=== PATIENT | female | born 1975 | race Caucasian/White ===

== ENCOUNTER 2017-02-17 21:48 | Emergency (ER) | payer SELFPAY ==
--- NOTE | 2017-02-17 22:50 | RADIOLOGY REPORT (SQ) ---
EXAM DESCRIPTION: CHEST SINGLE VIEW COMPLETED DATE/TIME: 02/17/2017 10:39 pm REASON FOR STUDY: cp COMPARISON: February 2015 EXAM PARAMETERS: NUMBER OF VIEWS: One view. TECHNIQUE: Single frontal radiographic view of the chest acquired. RADIATION DOSE: NA LIMITATIONS: None. FINDINGS: LUNGS AND PLEURA: No opacities, masses or pneumothorax. No pleural effusion. MEDIASTINUM AND HILAR STRUCTURES: No masses. Contour normal. HEART AND VASCULAR STRUCTURES: Heart normal in size. Normal vasculature. BONES: No acute findings. HARDWARE: None in the chest. OTHER: No other significant finding. IMPRESSION: NO ACUTE RADIOGRAPHIC FINDING IN THE CHEST. TECHNICAL DOCUMENTATION: JOB ID: [id number]
[2017-02-17 22:52] LABS: ABSOLUTE EOSINOPHILS # (AUTO) 0.1 10^3/uL (0.0-0.6); ABSOLUTE LYMPHOCYTES (AUTO) 2.8 10^3/uL (0.5-4.7); ABSOLUTE MONOCYTES (AUTO) 0.7 10^3/uL (0.1-1.4); ABSOLUTE NEUT (AUTO) 7.9 10^3/uL (1.7-8.2); BASOPHILS % (AUTO) 0.3 % (0-2); EOSINOPHILS % (AUTO) 0.6 % (0-6); HEMATOCRIT 46.6 % (36.0-47.0); HEMOGLOBIN 15.3 g/dL (12.0-15.5); HGB HCT DIFFERENCE -0.7; LYMPHOCYTES % (AUTO) 24.5 % (13-45); MEAN CORPUSCULAR HEMOGLOBIN 27.9 pg (27.0-33.4); MEAN CORPUSCULAR HGB CONC 32.9 g/dL (32.0-36.0); MEAN CORPUSCULAR VOLUME 85 fl (80-97); MONOCYTES % (AUTO) 5.8 % (3-13); RED CELL DISTRIBUTION WIDTH 14.2 % (11.5-14.0); SEGMENTED NEUTROPHILS % (AUTO) 68.8 % (42-78); WHITE BLOOD COUNT 11.4 10^3/uL (4.0-10.5)
[2017-02-17 23:04] LABS: ALANINE AMINOTRANSFERASE 84 U/L (9-52); ALBUMIN 4.2 g/dL (3.5-5.0); ALKALINE PHOSPHATASE 82 U/L (38-126); ANION GAP 12 (5-19); ASPARTATE AMINO TRANSFERASE 40 U/L (14-36); BILIRUBIN,DIRECT 0.2 mg/dL (0.0-0.4); BILIRUBIN,TOTAL 0.5 mg/dL (0.2-1.3); BLOOD UREA NITROGEN 18 mg/dL (7-20); CALCIUM 9.7 mg/dL (8.4-10.2); CARBON DIOXIDE 24 mmol/L (22-30); CHLORIDE 106 mmol/L (98-107); CREATININE RESULT 0.78 mg/dL (0.52-1.25); GLUCOSE 92 mg/dL (75-110); POTASSIUM 4.8 mmol/L (3.6-5.0); TOTAL PROTEIN 7.6 g/dL (6.3-8.2)
[2017-02-17 23:10] LABS: CREATINE KINASE < 20 U/L (30-135)
[2017-02-17 23:20] LABS: CREATINE KINASE MB < 0.22 ng/mL (<4.55); TROPONIN I < 0.012 ng/mL
--- NOTE | 2017-02-17 23:22 | ER Document Report ---
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 States that she did land directly on her back and denies any head or neck trauma. States that she has had some intermittent diffuse chest wall pain described as mild, cramping, much worse after the fall. Denies anything seems to improve or worsen her pain. Does have a history of a lumbar spinal fusion in the remote past. She has been able to ambulate since the fall. Denies any bowel or bladder incontinence. No urinary retention. She denies any associated shortness of breath, nausea, vomiting, pleuritic pain, or hemoptysis. TRAVEL OUTSIDE OF THE [place] IN LAST 30 DAYS: No - Related Data Allergies/Adverse Reactions: No Known Allergies Allergy (Verified 04/30/15 20:04) Past Medical History - General Information source: Patient - Social History Smoking Status: Former Smoker Frequency of alcohol use: None Drug Abuse: None Lives with: Other - Care Home Family History: Reviewed & Not Pertinent - Past Medical History Cardiac Medical History: Reports: Hx Hypertension Neurological Medical History: Reports: Hx Migraine GI Medical History: Reports: Hx Gastroesophageal Reflux Disease Musculoskeltal Medical History: Reports Hx Musculoskeletal Deformity, Reports Hx Musculoskeletal Trauma Past Surgical History: Reports: Hx Section - Immunizations Immunizations up to date: Yes Hx Diphtheria, Pertussis, Tetanus Vaccination: Yes Review of Systems - Review of Systems Notes: Constitutional: Negative for fever. HENT: Negative for sore throat. Eyes: Negative for visual changes. Cardiovascular: Positive for chest pain. Respiratory: Negative for shortness of breath. Gastrointestinal: Negative for abdominal pain, vomiting or diarrhea. Genitourinary: Negative for dysuria. Musculoskeletal: Positive for back pain. Skin: Negative for rash. Neurological: Negative for headaches, weakness or numbness. 10 point ROS negative except as marked above and in HPI. Physical Exam - Vital signs Vitals: Resp BP Pulse Ox 15 118/102 H 100 02/17/17 21:59 02/17/17 21:59 02/17/17 21:59 Interpretation: Normal Notes: PHYSICAL EXAMINATION: GENERAL: Well-appearing, well-nourished and in no acute distress. HEAD: Atraumatic, normocephalic. EYES: Pupils equal round and reactive to light, extraocular movements intact, sclera anicteric, conjunctiva are normal. ENT: nares patent, oropharynx clear without exudates. Moist mucous membranes. NECK: Normal range of motion, supple without lymphadenopathy LUNGS: Breath sounds clear to auscultation bilaterally and equal. No wheezes rales or rhonchi. HEART: Regular rate and rhythm without murmurs ABDOMEN: Soft, nontender, normoactive bowel sounds. No guarding, no rebound. No masses appreciated. EXTREMITIES: Normal range of motion, no pitting or edema. No cyanosis. Back: Diffuse L-spine midline tenderness without step-offs or deformities. NEUROLOGICAL: 5 out of 5 strength both distally and proximally bilateral lower extremities. 2+ patellar reflexes bilaterally. No clonus. Sensation grossly intact in the bilateral lower extremities. Patient is able to ambulate without difficulty. PSYCH: Normal mood, normal affect. SKIN: Warm, Dry, normal turgor, no rashes or lesions noted. Course - Re-evaluation Re-evalutation: 02/17/17 23:19 Patient presents with concern of diffuse low back pain after falling off of her bunk in [facility]. She states that after she fell and shot pain upper back and into her diffuse chest. Patient does note that she has had intermittent diffuse chest wall "cramping" for the past 3 days. At time of my assessment patient is overall well in appearance, no acute distress, vitals within normal limits. Low clinical suspicion for ACS given clinical history, exam, EKG without ST elevations or depressions, and negative initial troponin. HEART score less than or equal to 3. PE also seems unlikely given clinical history, absence of tachycardia or dyspnea. Patient does have a history of pulmonary embolism but again given her absence of tachycardia, dyspnea or complaints of pleuritic pain or shortness of breath I do not believe pursuing this diagnosis at this time is indicated. CXR without evidence of pneumothorax or pneumonia. No widened mediastinum. Aortic dissection also seems unlikely given history, symmetric pulses, CXR, and vitals. Back examination does show a midline lumbar scar and midline spinal tenderness but no step-offs or deformities. No neurologic deficit, 2+ patellar and ankle reflexes bilaterally. Able to ambulate. I do not suspect an acute cord injury. Will obtain a lumbar spine x-ray to ensure no displacement of existing hardware. A single troponin will be obtained likewise to exclude any cardiac etiology of patient's chest pain although again this seems unlikely given clinical history. Chest x-ray has been obtained likewise did not demonstrate any acute findings. If all labs and x-rays are within normal limits and patient continues to do well in appearance and in no distress, will plan for discharge home. HEART Score: History:0 EC Age:0 Risk Factors:1 Troponin:0 Total: 1 02/18/17 00:34 Patient has remained pain-free at this time. L-spine x-ray is normal without evidence of hardware displacement. At this time will discharge with return precautions and follow-up recommendations. Verbal discharge instructions given a the bedside and opportunity for questions given. Medication warnings reviewed. Patient is in agreement with this plan and has verbalized understanding of return precautions and the need for primary care follow-up in the next 24-72 hours. - Vital Signs Vital signs: Temp Pulse Resp BP Pulse Ox 98.1 F 20 111/94 H 98 02/17/17 22:00 02/17/17 22:01 02/17/17 22:01 02/17/17 22:01 - Laboratory Result Diagrams: 02/17/17 22:44 02/17/17 22:44 Laboratory results interpreted by me: 02/17/17 02/17/17 22:44 22:44 WBC 11.4 H RBC 5.50 H RDW 14.2 H AST 40 H ALT 84 H Creatine Kinase < 20 L - Diagnostic Test Radiology reviewed: Image reviewed, Reports reviewed Radiology results interpreted by me: 02/17/17 23:22 Chest x-ray: No acute infiltrate - EKG Interpretation by Me Additional EKG results interpreted by me: 02/17/17 23:24 Normal sinus rhythm. Rate 74. No ST elevations or depressions. QTC 395. Discharge - Discharge Clinical Impression: Low back pain Qualifiers: Chronicity: acute Back pain laterality: midline Sciatica presence: without sciatica Qualified Code(s): M54.5 - Low back pain Fall Qualifiers: Encounter type: initial encounter Qualified Code(s): W19.XXXA - Unspecified fall, initial encounter Chest pain Qualifiers: Chest pain type: unspecified Qualified Code(s): R07.9 - Chest pain, unspecified Additional Instructions: You were seen today for chest pain. The exact cause of your pain is unclear. However, based on your cardiac enzyme testing, chest x-ray, and EKG it does not appear that it is from an immediately life-threatening cause at this time. Although your testing here is normal is critical that you follow-up with your primary care physician for continued evaluation of this chest pain. Please return to emergency department immediately if you have worsening of your chest pain, shortness of breath, vomiting, become unable to exert yourself due to pain or difficulty breathing, you pass out, or have any pain that radiates into your arms, jaw, or back. Please also return if you have any additional symptoms that are concerning to you. You have been seen in the Emergency Department (ED) today for back pain. Your workup and exam have not shown any acute abnormalities and you are likely suffering from muscle strain or possible problems with your discs, but there is no treatment that will fix your symptoms at this time. You can use ibuprofen 600mg every 6 hours as needed. You should also purchase a local lidocaine cream such as "aspercreme with lidocaine" and use per bottle instructions to the affected area. Apply heat to the area as often as you are able. Continue to keep active and avoid prolonged periods of bed rest. Please follow up with your doctor as soon as possible regarding today's ED visit and your back pain. Return to the ED for worsening back pain, fever, weakness or numbness of either leg, or if you develop either (1) an inability to urinate or have bowel movements, or (2) loss of your ability to control your bathroom functions (if you start having "accidents"), or if you develop other new symptoms that concern you.concern you.
--- NOTE | 2017-02-17 23:29 | EKG REPORT ---
SEVERITY:- NORMAL ECG - SINUS RHYTHM : Confirmed by: Tyler Delacruz MD 17-Feb-2017 23:29:01
[2017-02-18] MEDS ORDERED: KETOROLAC TROMETHAMINE INJ/PF 30 MG/1 ML SDV IV ONE (00:10)
[2017-02-18] MEDS ORDERED: LIDOCAINE 5% (700 MG) TRANSDERMAL ADH..PATCH TP ONE (00:33)
--- NOTE | 2017-02-18 00:33 | RADIOLOGY REPORT (SQ) ---
EXAM DESCRIPTION: L SPINE WHOLE COMPLETED DATE/TIME: 02/18/2017 12:21 am REASON FOR STUDY: fall, eval hardware damage COMPARISON: 03/01/2016 NUMBER OF VIEWS: Five views including obliques. TECHNIQUE: AP, lateral, oblique, and sacral radiographic images acquired of the lumbar spine. LIMITATIONS: None. FINDINGS: MINERALIZATION: Normal. SEGMENTATION: Normal. No transitional anatomy. ALIGNMENT: Normal. VERTEBRAE: Maintained height. No fracture or worrisome bone lesion. DISCS: Preserved height. No significant osteophytes or end plate irregularity. POSTERIOR ELEMENTS: Pedicles and facets are intact. No pars defect or posterior arch defects. HARDWARE: Paraspinous pati and intrapedicular screw fusion is again seen at the lumbosacral junction. There is no evidence of hardware fracture, perihardware lucency or migration. PARASPINAL SOFT TISSUES: Normal. PELVIS: Intact as visualized. No fractures or worrisome bone lesions. SI joints intact. OTHER: Surgical clips localized to the right upper quadrant. IMPRESSION: Status post L5-S1 fusion without evidence of hardware complication. No acute findings. TECHNICAL DOCUMENTATION: JOB ID: [id number] [employer]- All Rights Reserved
[2017-02-18 00:45] VITALS: BP 153/92
== END 2017-02-18 00:55 | disposition home or self-care (01) ==
LOC: ER 21:48
DX: R07.9 Chest pain, unspecified (principal); M54.5 Low back pain; W06.XXXA Fall from bed, initial encounter; Y92.149 Unspecified place in prison as the place of occurrence of the external cause; I10 Essential (primary) hypertension; K21.9 Gastro-esophageal reflux disease without esophagitis; Z98.1 Arthrodesis status
CPT/HCPCS: 93005; 99284; 36415; 82553; 82550; 85025; 80053; 84484; 71010; 72110; 93010; J1885

== ENCOUNTER 2019-03-27 15:21 | Emergency (ER) | payer SELFPAY ==
[2019-03-27] MEDS ORDERED: NORMAL SALINE 1000 ML 1,000 ML IV ONE (15:58)
--- NOTE | 2019-03-27 16:01 | ER Document Report ---
ED Medical Screen (RME) - General Chief Complaint: Feet Swelling Stated Complaint: FEET SWELLING,SHORT OF BREATH Time Seen by Provider: 03/27/19 15:49 Mode of Arrival: Wheelchair Information source: Patient Notes: 43-year-old female presents to ED for chest pain, shortness of breath, pedal edema, and nausea and vomiting.. She states he had a aortic valve replacement in September. Has been vomiting in the emergency room. Her pulse is 132. She states she just used heroin about an hour ago. She states she used a normal amount. She states she also used it a couple weeks ago. Patient is alert and oriented respirations regular and unlabored she is chilling and states she is feeling very cold. Pulse is 132 blood pressure is 101/58 with a temperature of 100 even. I have greeted and performed a rapid initial assessment of this patient. A comprehensive ED assessment and evaluation of the patient, analysis of test results and completion of medical decision making process will be conducted by an additional ED providers. Dictation of this chart was performed using voice recognition software; therefore, there may be some unintended grammatical errors. TRAVEL OUTSIDE OF THE [place] IN LAST 30 DAYS: No - Related Data Allergies/Adverse Reactions: No Known Allergies Allergy (Verified 03/27/19 15:22) Past Medical History - Past Medical History Cardiac Medical History: Reports: Hx Hypertension Neurological Medical History: Reports: Hx Migraine GI Medical History: Reports: Hx Gastroesophageal Reflux Disease Musculoskeltal Medical History: Reports Hx Musculoskeletal Deformity, Reports Hx Musculoskeletal Trauma Past Surgical History: Reports: Hx Section, Hx Orthopedic Surgery - L1- S5 fusion - Immunizations Immunizations up to date: Yes Hx Diphtheria, Pertussis, Tetanus Vaccination: Yes Physical Exam - Vital signs Vitals: Temp Pulse Resp BP Pulse Ox 99.8 F 132 H 18 101/58 L 99 03/27/19 15:42 03/27/19 15:42 03/27/19 15:42 03/27/19 15:42 03/27/19 15:42 Course - Vital Signs Vital signs: Temp Pulse Resp BP Pulse Ox 99.8 F 132 H 18 101/58 L 99 03/27/19 15:42 03/27/19 15:42 03/27/19 15:42 03/27/19 15:42 03/27/19 15:42
--- NOTE | 2019-03-27 16:12 | RADIOLOGY REPORT (SQ) ---
EXAM DESCRIPTION: CHEST 2 VIEWS COMPLETED DATE/TIME: 03/27/2019 4:04 pm REASON FOR STUDY: chest pain, swelling in feet COMPARISON: 03/15/2015 EXAM PARAMETERS: NUMBER OF VIEWS: two views TECHNIQUE: Digital Frontal and Lateral radiographic views of the chest acquired. RADIATION DOSE: NA LIMITATIONS: none FINDINGS: LUNGS AND PLEURA: No opacities, masses or pneumothorax. No pleural effusion. MEDIASTINUM AND HILAR STRUCTURES: No masses or contour abnormalities. HEART AND VASCULAR STRUCTURES: Heart normal size. No evidence for failure. BONES: No acute findings. HARDWARE: Sternotomy wires. OTHER: No other significant finding. IMPRESSION: NO ACUTE RADIOGRAPHIC FINDING IN THE CHEST. TECHNICAL DOCUMENTATION: JOB ID: [id number] [employer]- All Rights Reserved Reading location - IP/workstation name: [email or web address]
--- NOTE | 2019-03-27 16:37 | ER Document Report ---
ED General - General Chief Complaint: Feet Swelling Stated Complaint: FEET SWELLING,SHORT OF BREATH Time Seen by Provider: 03/27/19 15:49 Mode of Arrival: Wheelchair Notes: 43-year-old female. 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 Coming in complaining of severe shortness of breath, tachycardia and fever. Currently with a fever of 102. States that she has had a large amount of swelling to her legs as well. States that she did well for about 3 months after her surgery but has relapsed over the last 4 months. TRAVEL OUTSIDE OF THE [place] IN LAST 30 DAYS: No - HPI Onset/Duration: Gradual, Constant, Worse Severity: Severe Pain Level: 3 - Related Data Allergies/Adverse Reactions: No Known Allergies Allergy (Verified 03/27/19 15:22) Past Medical History - General Information source: Patient - Social History Smoking Status: Current Every Day Smoker Cigarette use (# per day): Yes Frequency of alcohol use: Social Drug Abuse: Heroin Lives with: Family Family History: Reviewed & Not Pertinent Patient has suicidal ideation: No Patient has homicidal ideation: No - Past Medical History Cardiac Medical History: Reports: Hx Hypertension Neurological Medical History: Reports: Hx Migraine Renal/ Medical History: Denies: Hx Peritoneal Dialysis GI Medical History: Reports: Hx Gastroesophageal Reflux Disease Musculoskeletal Medical History: Reports Hx Musculoskeletal Deformity, Reports Hx Musculoskeletal Trauma Past Surgical History: Reports: Hx Section, Hx Orthopedic Surgery - L1- S5 fusion - Immunizations Immunizations up to date: Yes Hx Diphtheria, Pertussis, Tetanus Vaccination: Yes Review of Systems - Review of Systems Notes: Constitutional: denies: Chills, Diaphoresis, +Fever, +Malaise, +Weakness EENT: denies: Eye discharge, Blurred vision, Tearing, Double vision, Nose congestion, Nose discharge, Throat swelling, Mouth pain Cardiovascular: She is complaining of chest pain, palpitations, difficulty with breathing and peripheral edema. Respiratory: denies: Cough, Hurts to breathe, Wheezing, +Shortness of breath Gastrointestinal: denies: Abdominal pain, Diarrhea, Nausea, Vomiting, Black stools, bright red blood in stool Genitourinary: denies: Burning, Dysuria, Discharge, Frequency, Flank pain, Hematuria Musculoskeletal: denies: Joint pain, Joint swelling, Muscle pain, Muscle stiffness, back pain, +edema Hematologic/Lymphatic: denies: Anemia, Easy bleeding, Easy bruising, Blood clots Neurological/Psychological: denies: Confusion, Dementia, Depression, Loss of consciousness Skin: No lesions, no masses, no skin breakdown, no abscesses Physical Exam - Vital signs Vitals: Temp Pulse Resp BP Pulse Ox 99.8 F 132 H 18 101/58 L 99 03/27/19 15:42 03/27/19 15:42 03/27/19 15:42 03/27/19 15:42 03/27/19 15:42 Interpretation: Hypotensive, Tachycardic, Febrile - General General appearance: Appears well, Alert - HEENT Head: Normocephalic, Atraumatic Eyes: Normal Pupils: PERRL - Respiratory Respiratory status: No respiratory distress Chest status: Nontender Breath sounds: Normal Chest palpation: Normal - Cardiovascular Rhythm: Tachycardia Heart sounds: Normal auscultation Murmur: Yes - 5 out of 6 blowing systolic murmur. - Abdominal Inspection: Normal Distension: No distension Bowel sounds: Normal Tenderness: Nontender Organomegaly: No organomegaly - Back Back: Normal, Nontender - Extremities General upper extremity: Normal inspection, Nontender, Normal color, Normal ROM, Normal temperature General lower extremity: Normal inspection, Nontender, Edema - Trace bilateral lower extremity edema., Normal color, Normal ROM, Normal temperature, Normal weight bearing. No: Kady's sign - Neurological Neuro grossly intact: Yes Cognition: Normal Orientation: AAOx4 Rogerio Coma Scale Eye Opening: Spontaneous Rogerio Coma Scale Verbal: Oriented [place] Coma Scale Motor: Obeys Commands [place] Coma Scale Total: 15 Speech: Normal Motor strength normal: LUE, RUE, LLE, RLE Sensory: Normal - Psychological Associated symptoms: Normal affect, Normal mood - Skin Skin Temperature: Warm Skin Moisture: Dry Skin Color: Normal Course - Re-evaluation Re-evalutation: 03/27/19 18:39 This is an ill-appearing 43-year-old female. Loud systolic murmur. Recent open heart surgery with valve repair for endocarditis. Patient does admit that she has been using heroin again and injecting. Has a history of hepatitis. More than likely patient is septic and has endocarditis again. We have no cardiothoracic surgery here. More likely patient will benefit from transfer i mmediately. Will attempt to contact hospitalist and student records specialist/cardiothoracic surgeon at [facility] where patient was recently hospitalized to see if they will accept her as a transfer. 03/27/19 19:14 Laboratory 03/27/19 03/27/19 03/27/19 16:19 16:19 16:19 WBC 3.7 L RBC 5.11 Hgb 12.9 Hct 39.3 MCV 77 L MCH 25.3 L MCHC 32.8 RDW 17.0 H Plt Count 311 Total Counted 100 Seg Neutrophils % Not Reportable Seg Neuts % (Manual) 72 Band Neutrophils % 7 H Lymphocytes % Not Reportable Lymphocytes % (Manual) 18 Monocytes % Not Reportable Monocytes % (Manual) 1 L Eosinophils % Not Reportable Eosinophils % (Manual) 0 Basophils % Not Reportable Basophils % (Manual) 0 Metamyelocytes % 2 H Absolute Neutrophils Not Reportable Abs Neuts (Manual) 3.0 Absolute Lymphocytes Not Reportable Abs Lymphs (Manual) 0.7 Absolute Monocytes Not Reportable Abs Monocytes (Manual) 0.0 L Absolute Eosinophils Not Reportable Absolute Eos (Manual) 0.0 Absolute Basophils Not Reportable Abs Basophils (Manual) 0.0 Platelet Comment ADEQUATE Polychromasia SLIGHT Hypochromasia SLIGHT Poikilocytosis SLIGHT Anisocytosis 1+ Ovalocytes 1+ Sodium Cancelled Potassium Cancelled Chloride Cancelled Carbon Dioxide Cancelled Anion Gap Cancelled BUN Cancelled Creatinine Cancelled Est GFR ( Amer) Cancelled Est GFR (Non-Af Amer) Cancelled Glucose Cancelled Lactic Acid Cancelled Calcium Cancelled Total Bilirubin Cancelled Direct Bilirubin Cancelled Neonat Total Bilirubin Cancelled Neonat Direct Bilirubin Cancelled Neonat Indirect Bili Cancelled AST Cancelled ALT Cancelled Alkaline Phosphatase Cancelled Creatine Kinase Cancelled CK-MB (CK-2) Troponin I NT-Pro-B Natriuret Pep Total Protein Cancelled Albumin Cancelled Serum HCG, Qual 03/27/19 03/27/19 03/27/19 16:19 16:19 16:19 WBC RBC Hgb Hct MCV MCH MCHC RDW Plt Count Total Counted Seg Neutrophils % Seg Neuts % (Manual) Band Neutrophils % Lymphocytes % Lymphocytes % (Manual) Monocytes % Monocytes % (Manual) Eosinophils % Eosinophils % (Manual) Basophils % Basophils % (Manual) Metamyelocytes % Absolute Neutrophils Abs Neuts (Manual) Absolute Lymphocytes Abs Lymphs (Manual) Absolute Monocytes Abs Monocytes (Manual) Absolute Eosinophils Absolute Eos (Manual) Absolute Basophils Abs Basophils (Manual) Platelet Comment Polychromasia Hypochromasia Poikilocytosis Anisocytosis Ovalocytes Sodium Potassium Chloride Carbon Dioxide Anion Gap BUN Creatinine Est GFR ( Amer) Est GFR (Non-Af Amer) Glucose Lactic Acid Calcium Total Bilirubin Direct Bilirubin Neonat Total Bilirubin Neonat Direct Bilirubin Neonat Indirect Bili AST ALT Alkaline Phosphatase Creatine Kinase CK-MB (CK-2) Cancelled Troponin I Cancelled NT-Pro-B Natriuret Pep Cancelled Total Protein Albumin Serum HCG, Qual Cancelled 03/27/19 03/27/19 03/27/19 18:02 18:02 18:02 WBC RBC Hgb Hct MCV MCH MCHC RDW Plt Count Total Counted Seg Neutrophils % Seg Neuts % (Manual) Band Neutrophils % Lymphocytes % Lymphocytes % (Manual) Monocytes % Monocytes % (Manual) Eosinophils % Eosinophils % (Manual) Basophils % Basophils % (Manual) Metamyelocytes % Absolute Neutrophils Abs Neuts (Manual) Absolute Lymphocytes Abs Lymphs (Manual) Absolute Monocytes Abs Monocytes (Manual) Absolute Eosinophils Absolute Eos (Manual) Absolute Basophils Abs Basophils (Manual) Platelet Comment Polychromasia Hypochromasia Poikilocytosis Anisocytosis Ovalocytes Sodium 132.6 L Potassium 3.6 Chloride 105 Carbon Dioxide 17 L Anion Gap 11 BUN 11 Creatinine 1.00 Est GFR ( Amer) > 60 Est GFR (Non-Af Amer) > 60 Glucose 112 H Lactic Acid Calcium 8.3 L Total Bilirubin 1.4 H Direct Bilirubin 1.2 H Neonat Total Bilirubin Not Reportable Neonat Direct Bilirubin Not Reportable Neonat Indirect Bili Not Reportable AST 90 H ALT 52 Alkaline Phosphatase 400 H Creatine Kinase 75 CK-MB (CK-2) 0.63 Troponin I 0.647 NT-Pro-B Natriuret Pep 8300 H Total Protein 5.9 L Albumin 2.6 L Serum HCG, Qual NEGATIVE 03/27/19 19:29 Patient is having issues with her blood pressure. Her troponin is elevated. Aspirin has been given. More likely patient is septic versus having decompensated heart valve from endocarditis. I have spoken with the supervisor cooler service, Dr. Hurley at [facility]. We will arrange for immediate transfer. 03/27/19 20:09 Patient is extremely sick. Likely endocarditis with sepsis. Broad-spectrum antibiotics given. Acute heart failure with BNP over 8000 and elevated troponin. I have consulted with the supervisor cooler service at [facility], Dr. Hurley excepting. Pending immediate transfer at this time. - Vital Signs Vital signs: Temp Pulse Resp BP Pulse Ox 99.8 F 132 H 18 101/58 L 99 03/27/19 15:42 03/27/19 15:42 03/27/19 15:42 03/27/19 15:42 03/27/19 15:42 - Laboratory Result Diagrams: 03/27/19 16:19 03/27/19 18:02 Laboratory results interpreted by me: 03/27/19 03/27/19 03/27/19 16:19 18:02 18:02 WBC 3.7 L MCV 77 L MCH 25.3 L RDW 17.0 H Band Neutrophils % 7 H Monocytes % (Manual) 1 L Metamyelocytes % 2 H Abs Monocytes (Manual) 0.0 L Sodium 132.6 L Carbon Dioxide 17 L Glucose 112 H Calcium 8.3 L Total Bilirubin 1.4 H Direct Bilirubin 1.2 H AST 90 H Alkaline Phosphatase 400 H NT-Pro-B Natriuret Pep 8300 H Total Protein 5.9 L Albumin 2.6 L Critical Care Note - Critical Care Note Total time excluding time spent on procedures (mins): 60 Comments: Endocarditis, sepsis, consultation with specialist, coordination of transfer of care Discharge - Discharge Clinical Impression: Sepsis Qualifiers: Sepsis type: sepsis due to unspecified organism Qualified Code(s): A41.9 - Sepsis, unspecified organism Bacterial endocarditis Qualifiers: Chronicity: unspecified Qualified Code(s): I33.0 - Acute and subacute infective endocarditis Condition: Fair Disposition: [facility]
[2019-03-27 16:51] LABS: HEMATOCRIT 39.3 % (36.0-47.0); HEMOGLOBIN 12.9 g/dL (12.0-15.5); MEAN CORPUSCULAR HEMOGLOBIN 25.3 pg (27.0-33.4); MEAN CORPUSCULAR HGB CONC 32.8 g/dL (32.0-36.0); MEAN CORPUSCULAR VOLUME 77 fl (80-97); PLATELET COUNT 311 10^3/uL (150-450); RED BLOOD COUNT 5.11 10^6/uL (3.72-5.28); WHITE BLOOD COUNT 3.7 10^3/uL (4.0-10.5)
[2019-03-27] MEDS ORDERED: VANCOMYCIN HCL INJ 1000 MG VIAL IV ONE (16:52)
[2019-03-27] MEDS ORDERED: PIPERACILLIN/TAZOBACTAM 3.375 GM VIAL IV ONE (16:52)
[2019-03-27] MEDS ORDERED: FAMOTIDINE INJ/PF 20 MG/2 ML SDV IV ONE (16:53)
[2019-03-27] MEDS ORDERED: FENTANYL CITRATE INJ/PF 100 MCG/2 ML AMPUL IV ONE (16:53)
[2019-03-27] MEDS ORDERED: KETOROLAC TROMETHAMINE INJ/PF 30 MG/1 ML SDV IV ONE (16:53)
[2019-03-27] MEDS ORDERED: ASPIRIN 325 MG TABLET PO ONE (16:53)
[2019-03-27 17:09] LABS: ABSOLUTE LYMPHOCYTES# (MANUAL) 0.7 10^3/uL (0.5-4.7); BAND NEUTROPHILS % (MANUAL) 7 % (3-5); BASOPHILS % (MANUAL) 0 % (0-2); EOSINOPHILS % (MANUAL) 0 % (0-6); LYMPHOCYTES % (MANUAL) 18 % (13-45); METAMYELOCYTES % (MANUAL) 2 % (0); MONOCYTES % (MANUAL) 1 % (3-13); PLATELET COMMENT ADEQUATE; SEGMENTED NEUTROPHILS % (MAN) 72 % (42-78); TOTAL CELLS COUNTED 100
[2019-03-27 17:11] LABS: ANISOCYTOSIS 1+; HYPOCHROMASIA SLIGHT; OVALOCYTES 1+; POIKILOCYTOSIS SLIGHT; POLYCHROMASIA SLIGHT
[2019-03-27 18:34] LABS: ALANINE AMINOTRANSFERASE 52 U/L (9-52); ALBUMIN 2.6 g/dL (3.5-5.0); ALKALINE PHOSPHATASE 400 U/L (38-126); ANION GAP 11 (5-19); ASPARTATE AMINO TRANSFERASE 90 U/L (14-36); BILIRUBIN,DIRECT 1.2 mg/dL (0.0-0.4); BILIRUBIN,TOTAL 1.4 mg/dL (0.2-1.3); BLOOD UREA NITROGEN 11 mg/dL (7-20); CALCIUM 8.3 mg/dL (8.4-10.2); CARBON DIOXIDE 17 mmol/L (22-30); CHLORIDE 105 mmol/L (98-107); CREATINE KINASE 75 U/L (30-135); GLUCOSE 112 mg/dL (75-110); POTASSIUM 3.6 mmol/L (3.6-5.0); SODIUM 132.6 mmol/L (137-145); TOTAL PROTEIN 5.9 g/dL (6.3-8.2)
[2019-03-27 18:45] LABS: CREATINE KINASE MB 0.63 ng/mL (<4.55)
[2019-03-27 18:48] LABS: TROPONIN I 0.647 ng/mL
[2019-03-27 19:48] LABS: APPEARANCE,URINE SLIGHTLY-CLOUDY; BILIRUBIN,URINE SMALL (NEGATIVE); COLOR,URINE AMBER; GLUCOSE, URINE NEGATIVE (NEGATIVE); KETONES,URINE NEGATIVE (NEGATIVE); LEUKOCYTE ESTERASE,URINE NEGATIVE (NEGATIVE); NITRITE,URINE NEGATIVE (NEGATIVE); PROTEIN,URINE 100 mg/dL (NEGATIVE); URINE SPECIFIC GRAVITY 1.017
[2019-03-27] MEDS ORDERED: DEXTROSE 5%-WATER 250 ML with NOREPINEPHRINE BITARTRATE 4 MG IV PRN ×2 (20:50)
[2019-03-27] MEDS ORDERED: NOREPINEPHRINE BITARTRATE INJ/PF 4 MG/4 ML SDV IV ONE (20:52)
[2019-03-27] MEDS ORDERED: NORMAL SALINE 1000 ML 1,000 ML IV PRN ×2 (20:56→20:57)
--- NOTE | 2019-03-27 20:58 | Operative Report ---
Nonrecallable Operative Report DATE OF SURGERY: 03/27/19 PREOPERATIVE DIAGNOSIS: sepsis POSTOPERATIVE DIAGNOSIS: sepsis OPERATION: central line placement SURGEON: JARRETT FOFANA ANESTHESIA: Local TISSUE REMOVED OR ALTERED: none COMPLICATIONS: none ESTIMATED BLOOD LOSS: 0 INTRAOPERATIVE FINDINGS: see dictation
--- NOTE | 2019-03-27 21:28 | RADIOLOGY REPORT (SQ) ---
EXAM DESCRIPTION: RadLex: XR CHEST 1 VIEW CLINICAL HISTORY: 43 years Female, Central Line placement COMPARISON: 03/15/2015 FINDINGS: Lungs are clear, with no focal infiltrate, pneumothorax, or pleural effusion. Sternal wires are noted. Left IJ line is in place, tip in the SVC. Bony structures are unremarkable. IMPRESSION: 1. Left IJ line in place. No pneumothorax.
[2019-03-27 22:49] VITALS: BP 133/86
--- NOTE | 2019-03-28 04:45 | OPERATIVE REPORT E ---
Operative Report NAME: HONEY GRESHAM : 1975 AGE: 43Y DATE OF SURGERY: 03/27/2019 ROOM: PREOPERATIVE DIAGNOSIS: 1. SEPSIS SECONDARY TO ENDOCARDITIS. 2. NEED FOR VENOUS ACCESS. SURGEON: JARRETT FOFANA M.D. PROCEDURE: The patient was seen in the Emergency Room. She was lying on the Emergency Room gurney in a Trendelenburg position. The left neck was prepped and draped in the usual sterile fashion for a central line placement. After anesthetizing the skin over the internal jugular vein with 1% lidocaine plain, the internal jugular vein was cannulated with a 16-gauge needle. A wire was then placed through the needle into the superior vena cava. The needle was removed. A dilator was then placed over the wire into the internal jugular vein, and that was removed. Over the wire then, a 16-gauge triple-lumen catheter was placed without consequence. The wire was removed. The catheter was affixed to the skin with 2-0 silk and a sterile dressing was applied. A postprocedure chest x-ray confirmed good placement, and this completed the procedure. Estimated blood loss was negligible. DICTATING PHYSICIAN: JARRETT FOFANA M.D. [id number] PHY#: [id number] ID: [id number] JOB#: [id number] ACCT: [id number] cc:JARRETT FOFANA M.D. >
--- NOTE | 2019-03-28 04:55 | OPERATIVE REPORT E ---
Operative Report NAME: HONEY GRESHAM : 1975 AGE: 43Y DATE OF SURGERY: 03/27/2019 ROOM: PREOPERATIVE DIAGNOSES: 1. SEPSIS SECONDARY TO ENDOCARDITIS. 2. NEED FOR VENOUS ACCESS. SURGEON: JARRETT FOFANA M.D. PROCEDURE: [facility] She was placed in a Trendelenburg position. The left neck was prepped and draped in usual sterile fashion. After appropriate time-out and site verification, the area over the left internal jugular vein was anesthetized with 1% lidocaine plain. The vein was then cannulated with a 16-gauge needle, and through the needle a wire was placed into the superior vena cava. The needle was removed. The tract was dilated with the dilator included in the kit. After the tract was dilated, the dilator was removed and a triple-lumen 16-[place] catheter was placed over the wire into the superior vena cava. It was fixed there with 2-0 silk, and a confirmatory chest x-ray obtained, which showed good position. A sterile dressing was applied, which completed the procedure. Estimated blood loss was negligible. DICTATING PHYSICIAN: JARRETT FOFANA M.D. [id number] PHY#: [id number] ID: [id number] JOB#: [id number] ACCT: [id number] cc:JARRETT FOFANA M.D. >
== END 2019-03-27 23:10 | disposition short-term general hospital (02) ==
LOC: ER 15:21
DX: A41.9 Sepsis, unspecified organism (principal); I33.0 Acute and subacute infective endocarditis; M79.89 Other specified soft tissue disorders; R06.02 Shortness of breath; F19.10 Other psychoactive substance abuse, uncomplicated; R50.9 Fever, unspecified; F17.210 Nicotine dependence, cigarettes, uncomplicated; I10 Essential (primary) hypertension; Z98.1 Arthrodesis status
CPT/HCPCS: 99291; 51702; 96375; 96365; 96366; 96368; 36415; 87040; 87086; 82553; 82550; 84703; 85025; 80053; 81001; 84484; 83605; 83880; 71046; 71045; 36556; C1751; C1769; J3010; J1885; J3490; J7060; J7030; J3370; S0028; J2543

== ENCOUNTER 2019-05-21 22:50 | Inpatient (IN) | payer OTHER ==
[2019-05-21] MEDS ORDERED: ACETAMINOPHEN 325 MG TABLET PO ONE (23:05)
[2019-05-21] MEDS: NORMAL SALINE 1000 ML 1,000 ML IV PRN (23:18)
[2019-05-21 23:27] LABS: INTERNATIONAL RATION (INR) 1.16; PROTHROMBIN TIME 14.9 SEC (11.4-15.4)
[2019-05-21 23:29] LABS: HEMATOCRIT 38.9 % (36.0-47.0); HEMOGLOBIN 12.9 g/dL (12.0-15.5); MEAN CORPUSCULAR HEMOGLOBIN 25.7 pg (27.0-33.4); MEAN CORPUSCULAR HGB CONC 33.1 g/dL (32.0-36.0); MEAN CORPUSCULAR VOLUME 78 fl (80-97); RED BLOOD COUNT 5.01 10^6/uL (3.72-5.28); RED CELL DISTRIBUTION WIDTH 17.9 % (11.5-14.0)
[2019-05-21 23:31] LABS: VENOUS BLOOD BASE EXCESS -0.9 mmol/L; VENOUS BLOOD HCO3 22.1 mmol/L (20-32); VENOUS BLOOD PCO2 32.2 mmHg (35-63); VENOUS BLOOD PH 7.46 (7.30-7.42)
[2019-05-21 23:37] LABS: ALBUMIN 3.7 g/dL (3.5-5.0); ALKALINE PHOSPHATASE 114 U/L (38-126); ANION GAP 14 (5-19); ASPARTATE AMINO TRANSFERASE 45 U/L (14-36); BILIRUBIN,DIRECT 0.6 mg/dL (0.0-0.4); BILIRUBIN,TOTAL 1.4 mg/dL (0.2-1.3); BLOOD UREA NITROGEN 27 mg/dL (7-20); CALCIUM 8.8 mg/dL (8.4-10.2); CARBON DIOXIDE 25 mmol/L (22-30); CHLORIDE 92 mmol/L (98-107); GLUCOSE 124 mg/dL (75-110); TOTAL PROTEIN 7.4 g/dL (6.3-8.2)
[2019-05-21 23:39] LABS: POTASSIUM 2.9 mmol/L (3.6-5.0)
--- NOTE | 2019-05-21 23:39 | RADIOLOGY REPORT (SQ) ---
EXAM DESCRIPTION: RadLex: XR CHEST 1 VIEW CLINICAL HISTORY: 43 years Female, fever, sepsis, syncope COMPARISON: 03/27/2019 FINDINGS: Lungs are clear, with no focal infiltrate, pneumothorax, or pleural effusion. Sternal wires are again noted. No mediastinal widening. Heart size is within normal limits for positioning. Bony structures are unremarkable. IMPRESSION: 1. No acute pulmonary findings. 2. Previous sternotomy
[2019-05-21] MEDS ORDERED: POTASSIUM CHLORIDE 20 MEQ PACKET PO ONE (23:41)
[2019-05-21] MEDS ORDERED: ONDANSETRON HCL INJ/PF 4 MG/2 ML SDV IV ONE (23:41)
[2019-05-22 00:01] LABS: PLATELET COUNT 98 10^3/uL (150-450)
[2019-05-22] MEDS: NORMAL SALINE 1000 ML 1,000 ML IV PRN ×2 (00:05→05:22)
[2019-05-22 00:17] LABS: ABSOLUTE MONOCYTES # (MANUAL) 0.4 10^3/uL (0.1-1.4); ANISOCYTOSIS 1+; BAND NEUTROPHILS % (MANUAL) 3 % (3-5); BASOPHILS % (MANUAL) 0 % (0-2); EOSINOPHILS % (MANUAL) 0 % (0-6); LYMPHOCYTES % (MANUAL) 4 % (13-45); MONOCYTES % (MANUAL) 2 % (3-13); OVALOCYTES SLIGHT; PLATELET COMMENT DECREASED; SEGMENTED NEUTROPHILS % (MAN) 90 % (42-78); TOTAL CELLS COUNTED 100; TOXIC GRANULATION SLIGHT
[2019-05-22] MEDS ORDERED: POTASSIUM CHLORIDE 10 MEQ CAPSULE.ER PO ONE (00:18)
[2019-05-22] MEDS ORDERED: NORMAL SALINE 1000 ML 1,000 ML IV ONE (00:29)
[2019-05-22] MEDS ORDERED: MAGNESIUM SULFATE/D5W 1 GM/100 ML RTUPB IV ONE (00:34)
[2019-05-22 02:06] LABS: AMORPHOUS SEDIMENT,URINE TRACE /HPF; APPEARANCE,URINE CLOUDY; BILIRUBIN,URINE NEGATIVE (NEGATIVE); GLUCOSE, URINE NEGATIVE (NEGATIVE); KETONES,URINE NEGATIVE (NEGATIVE); LEUKOCYTE ESTERASE,URINE TRACE (NEGATIVE); NITRITE,URINE NEGATIVE (NEGATIVE); PROTEIN,URINE 100 mg/dL (NEGATIVE); URINE SPECIFIC GRAVITY 1.018
[2019-05-22 02:07] LABS: COLOR,URINE YELLOW
[2019-05-22 02:26] LABS: URINE AMPHETAMINES SCREEN NEGATIVE; URINE BARBITURATES SCREEN NEGATIVE; URINE BENZODIAZEPINES SCREEN UNCONFIRMED POSITIVE; URINE COCAINE SCREEN NEGATIVE; URINE MARIJUANA (THC) SCREEN UNCONFIRMED POSITIVE; URINE METHADONE SCREEN NEGATIVE; URINE PHENCYCLIDINE SCREEN NEGATIVE
[2019-05-22] MEDS ORDERED: PIPERACILLIN/TAZOBACTAM 3.375 GM VIAL IV ONE (03:00)
[2019-05-22] MEDS ORDERED: VANCOMYCIN HCL INJ 1000 MG VIAL IV ONE (03:00)
--- NOTE | 2019-05-22 03:21 | ER Document Report ---
ED General - General Chief Complaint: Chest Pain Stated Complaint: POSSIBLE DEHYDRATION Time Seen by Provider: 05/21/19 23:05 TRAVEL OUTSIDE OF THE [place] IN LAST 30 DAYS: No - HPI Notes: Patient is a 43-year-old female who presents to the emergency department for evaluation. She states that she felt poorly all day today. She has a low-grade fever. She states that she had a near syncopal episode earlier. She has had nausea with multiple episodes of nonbloody, nonbilious emesis. She did have one episode of loose stool earlier today. She is had chest pain since September, at which time she had surgery for endocarditis. She states it feels somewhat worse today. It is not reproducible. Patient does have a extensive history of IV drug abuse. She admits that she has relapsed. She states her last use was about 7 to 10 days ago. - Related Data Allergies/Adverse Reactions: No Known Allergies Allergy (Verified 03/27/19 15:22) Home Medications: Lasix, metoprolol Past Medical History - General Information source: Patient - Social History Smoking Status: Current Every Day Smoker Chew tobacco use (# tins/day): No Frequency of alcohol use: None Drug Abuse: Heroin Family History: Reviewed & Not Pertinent Patient has suicidal ideation: No Patient has homicidal ideation: No - Past Medical History Cardiac Medical History: Reports: Hx Congestive Heart Failure, Hx Hypertension, Other - Endocarditis Neurological Medical History: Reports: Hx Migraine Renal/ Medical History: Denies: Hx Peritoneal Dialysis GI Medical History: Reports: Hx Gastroesophageal Reflux Disease Musculoskeletal Medical History: Reports Hx Musculoskeletal Deformity, Reports Hx Musculoskeletal Trauma Past Surgical History: Reports: Hx Cardiac Surgery, Hx Section, Hx Orthopedic Surgery - L1-S5 fusion - Immunizations Immunizations up to date: Yes Hx Diphtheria, Pertussis, Tetanus Vaccination: Yes Review of Systems - Review of Systems Constitutional: See HPI EENT: No symptoms reported Cardiovascular: See HPI Respiratory: No symptoms reported Gastrointestinal: See HPI Genitourinary: No symptoms reported Musculoskeletal: No symptoms reported Skin: No symptoms reported Neurological/Psychological: No symptoms reported Physical Exam - Vital signs Vitals: Resp 24 H 05/21/19 22:54 - Notes Notes: This is a 43-year-old female who appears her stated age in no acute distress. She smells strongly of tobacco and cigarette smoke. Head is normocephalic and atraumatic. Pupils are equal round, reactive to light. Oral mucosa is moist. Uvula is midline. Neck is supple without meningismus. Heart is tachycardic with systolic murmur. Lungs are clear to auscultation bilaterally. Abdomen soft, nontender, normoactive bowel sounds. Extremities without cyanosis, clubb ing. No posterior calf tenderness. Peripheral pulses are equal. Skin is warm and dry. Patient is awake, alert, oriented x3. Cranial nerves II - XII are grossly intact without focal neurological deficits. Strength is plus 5 out of 5 bilateral upper and lower extremities. Sensation is intact. Reflexes symmetrical. Intact [id number], rapid alternating movements, [id number]. Course - Re-evaluation Re-evalutation: 05/22/19 03:21 Patient presents emergency department for evaluation. EMS found her temperature to be 100.6, her heart rate in the 130s to 140s. Laboratory investigations including sepsis evaluation was undertaken. Laboratory investigations revealed a significant leukocytosis, as well as dehydration, hyponatremia, hypokalemia, hypomagnesemia. Attempts were made to replace this. No clear source of infection was found at this time. This patient does, however, have a history of an epidural abscess, tricuspid valve vegetation with endocarditis, and is relapsed in regards to IV drug abuse. I am inclined to treat her, admit to await possible negative cultures. Patient is administered vancomycin and Zosyn. Her troponin was initially indeterminately elevated. Repeat troponin has not changed. Will contact medicine for further care. 05/22/19 03:[address] Wei. He asks that I contact [facility] to see if what they would recommend, given the fact that we do not have SANJU capability. 05/22/19 03:[address] Bowen, internal medicine physician in [facility]. Unfort unately they are on regional diversion. He went through the patient's chart. Evidently the patient does have a history of MSSA bacteremia. She was actually admitted there in March, treated empirically with cefepime, vancomycin, Flagyl. In fact her cultures at that time did not grow anything. There was some concern that she could in fact have vegetations, but she was deemed too high risk for IV antibiotics as an outpatient. She was actually discharged from the hospital with oral antibiotics for 8 days. We did discuss ultimate disposition of this patient. Dr. Bowen notes that he believes a transthoracic echocardiogram would be a reasonable place to start, as well as empiric antibiotic coverage and following up cultures. He certainly states that, if she develops any further complications, that they would happily accept her there when a bed becomes available. I spoke with Dr. Wei, who accepts the patient to a telemetry bed. 05/22/19 03:52 - Vital Signs Vital signs: Temp Pulse Resp BP Pulse Ox 98.3 F 21 H 100/76 96 05/21/19 23:01 05/21/19 23:01 05/21/19 23:01 05/21/19 23:01 - Laboratory Result Diagrams: 05/21/19 23:07 05/21/19 23:07 Laboratory results interpreted by me: 05/21/19 05/21/19 05/21/19 23:07 23:07 23:07 WBC 19.0 H MCV 78 L MCH 25.7 L RDW 17.9 H Plt Count 98 L Seg Neuts % (Manual) 90 H Lymphocytes % (Manual) 4 L Monocytes % (Manual) 2 L Abs Neuts (Manual) 17.7 H VBG pH VBG pCO2 Sodium 130.5 L Potassium 2.9 L* Chloride 92 L BUN 27 H Glucose 124 H POC Glucose Magnesium 1.3 L Total Bilirubin 1.4 H Direct Bilirubin 0.6 H AST 45 H Urine Protein Urine Blood Urine Urobilinogen Ur Leukocyte Esterase 05/21/19 05/21/19 05/22/19 23:22 23:23 01:35 WBC MCV MCH RDW Plt Count Seg Neuts % (Manual) Lymphocytes % (Manual) Monocytes % (Manual) Abs Neuts (Manual) VBG pH 7.46 H VBG pCO2 32.2 L Sodium Potassium Chloride BUN Glucose POC Glucose 116 H Magnesium Total Bilirubin Direct Bilirubin AST Urine Protein 100 H Urine Blood LARGE H Urine Urobilinogen 4.0 H Ur Leukocyte Esterase TRACE H - Diagnostic Test Radiology reviewed: Reports reviewed Radiology results interpreted by me: 05/22/19 03:20 Chest X-Ray 05/21/19 23:04 IMPRESSION: 1. No acute pulmonary findings. 2. Previous sternotomy - EKG Interpretation by Me Additional EKG results interpreted by me: 05/22/19 03:20 Sinus tachycardia with a rate of 126 bpm. Normal axis and intervals. Nonspecific ST changes, but no acute changes concerning for acute infarction. No significant change in compared to prior study. Discharge - Discharge Clinical Impression: SIRS (systemic inflammatory response syndrome), Hyponatremia, Hypokalemia, History of intravenous drug use in remission Condition: Stable Disposition: ADMITTED INPATIENT Admitting Provider: Eriberto (Hospitalist) Unit Admitted: Telemetry
[2019-05-22] MEDS ORDERED: IPRATROPIUM/ALBUTEROL 0.5-2.5 MG/3 ML AMPUL NEB PRN (03:49)
[2019-05-22] MEDS ORDERED: MAG HYDROX/AL HYDROX/SIMETH SUSP 30 ML UDCUP PO PRN (03:49)
[2019-05-22] MEDS ORDERED: MAGNESIUM HYDROXIDE SUSP 30 ML UDCUP PO PRN (03:49)
[2019-05-22] MEDS ORDERED: VANCOMYCIN HCL 0 MG in DEXTROSE 5%-WATER 250 ML IV NR (04:00)
[2019-05-22] MEDS: HEPARIN SOD (PORCINE) 5,000 UNIT/ML 1 ML VIAL SUBCUT SCH ×3 (05:26→22:07)
[2019-05-22] MEDS: PROMETHAZINE HCL 25 MG TABLET PO PRN (06:20)
--- NOTE | 2019-05-22 06:30 | PDOC H&P ---
History of Present Illness Admission Date/PCP: 05/22/19 03:57 Patient complains of: Chest pain History of Present Illness: HONEY GRESHAM is a 43 year old female with a past medical history of persistent IV drug use, endocarditis, status post tricuspid valve replacement September 2018 at [facility]. She presents with dull retrosternal ch est pain which has been present since valve replacement has developed fever and some shortness of breath prompting evaluation emergency room where she is found to have sepsis with hypotension, tachycardia, leukocytosis of 19,000, hypo- natremia hypomagnesemia hypo-kalemia and thrombocytopenia. She started on IV vancomycin and Dr. Bowen hospitalist at [facility] is consulted. 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 Subsequent cultures did not grow. [facility] is currently on regional diversion and are subsequently unable to accept her for transfer. She is referred to the hospitalist for admission. Past Medical History Cardiac Medical History: Reports: Congestive Heart Failure, Hypertension, Other - Endocarditis Neurological Medical History: Reports: Migraine GI Medical History: Reports: Gastroesophageal Reflux Disease Psychiatric Medical History: Reports: Substance Abuse Denies: Depression Past Surgical History Past Surgical History: Reports: Section, Orthopedic Surgery - L1-S5 fusion Social History Information Source: Patient, H Records, Outside Facility Records Smoking Status: Former Smoker Number of Years Smokin Last Time Smoked: 10/08/18 Frequency of Alcohol Use: None Hx Recreational Drug Use: Yes Drugs: Heroin - Advance Directive Resuscitation Status: Full Code Family History Family History: COPD Parental Family History Reviewed: Yes Children Family History Reviewed: Yes Sibling(s) Family History Reviewed.: Yes Medication/Allergy Home Medications: Buprenorphine HCl/Naloxone HCl [Suboxone 8 mg-2 mg Tablet Sl] 1 each SL DAILY 02/14/13 Butalb/Acetaminophen/Caffeine [Fioricet (50-325-40 mg) Tablet] 1 - 2 tab PO Q6 PRN #20 each 02/14/13 Ondansetron [Zofran Odt 4 mg Tablet] 1 tab PO Q6H #15 tab.rapdis 02/14/13 Dicyclomine HCl [Bentyl 10 mg Capsule] 1 cap PO TIDP PRN #30 cap 06/17/14 Antipyrine/Benzocaine/Glycerin [Aurodex Otic Soln 10 ml] 1 dropperful AU ASDIR PRN #1 bottle 08/18/14 Ciprofloxacin HCl/Dexameth [Ciprodex Otic Suspension 7.5 ml Bottle] 4 drop OT BID 1 Days bottle 08/18/14 Docusate Sodium [Colace 100 mg Capsule] 100 mg PO DAILY #30 capsule 04/30/15 Oxycodone HCl/Acetaminophen [Percocet 5-325 mg Tablet] 1 - 2 tab PO Q4H PRN #20 tablet 04/30/15 Methocarbamol [Robaxin 750 mg Tablet] 1,500 mg PO QID #20 tablet 09/21/15 Methylprednisolone [Medrol Dosepack (4 mg/Tab) 21 Tab/Dosepak] 4 mg PO ASDIR PRN #21 tab.ds.pk 09/21/15 Oxycodone HCl/Acetaminophen [Percocet 5-325 mg Tablet] 1 - 2 tab PO ASDIR PRN #15 tablet 09/21/15 Allergies/Adverse Reactions: No Known Allergies Allergy (Verified 03/27/19 15:22) Review of Systems Constitutional: PRESENT: as per HPI, chills, fatigue, fever(s), weakness Eyes: ABSENT: visual disturbances Ears: ABSENT: hearing changes Cardiovascular: PRESENT: as per HPI, chest pain, dyspnea on exertion. ABSENT: edema, orthropnea, palpitations Respiratory: ABSENT: cough, hemoptysis Gastrointestinal: ABSENT: abdominal pain, constipation, diarrhea, hematemesis, hematochezia, nausea, vomiting Genitourinary: ABSENT: dysuria, hematuria Musculoskeletal: ABSENT: joint swelling Integumentary: ABSENT: rash, wounds Neurological: ABSENT: abnormal gait, abnormal speech, confusion, dizziness, focal weakness, syncope Psychiatric: ABSENT: anxiety, depression, homidical ideation, suicidal ideation Endocrine: ABSENT: cold intolerance, heat intolerance, polydipsia, polyuria Physical Exam Vital Signs: Temp Pulse Resp BP Pulse Ox 97.3 F 94 19 106/69 94 05/22/19 05:22 05/22/19 05:22 05/22/19 05:22 05/22/19 05:22 05/22/19 05:22 Intake & Output 05/20/19 05/21/19 05/22/19 11:59 11:59 11:59 Intake Total 1883 Balance 1883 Weight 76.3 kg General appearance: PRESENT: cooperative, disheveled, mild distress, well- developed, well-nourished Head exam: PRESENT: atraumatic, normocephalic Eye exam: PRESENT: conjunctiva pink, EOMI, PERRLA. ABSENT: scleral icterus Ear exam: PRESENT: normal external ear exam Mouth exam: PRESENT: moist, tongue midline Neck exam: ABSENT: carotid bruit, JVD, lymphadenopathy, thyromegaly Respiratory exam: PRESENT: clear to auscultation sandrita. ABSENT: rales, rhonchi, wheezes Cardiovascular exam: PRESENT: +S1, +S2, systolic murmur, tachycardia Pulses: PRESENT: normal dorsalis pedis pul Vascular exam: PRESENT: normal capillary refill GI/Abdominal exam: PRESENT: normal bowel sounds, soft. ABSENT: distended, guarding, mass, organolmegaly, rebound, tenderness Rectal exam: PRESENT: deferred Extremities exam: PRESENT: full ROM. ABSENT: calf tenderness, clubbing, pedal edema Neurological exam: PRESENT: alert, awake, oriented to person, oriented to place, oriented to time, oriented to situation, CN II-XII grossly intact. ABSENT: motor sensory deficit Psychiatric exam: PRESENT: appropriate affect, normal mood. ABSENT: homicidal ideation, suicidal ideation Skin exam: PRESENT: dry, intact, warm. ABSENT: cyanosis, rash Results Laboratory Results: 05/21/19 23:07 05/21/19 23:07 05/21/19 05/21/19 05/21/19 23:07 23:07 23:07 WBC 19.0 H RBC 5.01 Hgb 12.9 Hct 38.9 MCV 78 L MCH 25.7 L MCHC 33.1 RDW 17.9 H Plt Count 98 L Seg Neutrophils % Not Reportable VBG pH VBG pCO2 VBG HCO3 VBG Base Excess Sodium 130.5 L Potassium 2.9 L* Chloride 92 L Carbon Dioxide 25 Anion Gap 14 BUN 27 H Creatinine 0.96 Est GFR ( Amer) > 60 Glucose 124 H Lactic Acid 1.8 Calcium 8.8 Magnesium Total Bilirubin 1.4 H AST 45 H Alkaline Phosphatase 114 Total Protein 7.4 Albumin 3.7 Serum HCG, Qual Urine Color Urine Appearance Urine pH Ur Specific Pegram Urine Protein Urine Glucose (UA) Urine Ketones Urine Blood Urine Nitrite Ur Leukocyte Esterase Urine WBC (Auto) Urine RBC (Auto) 08/28/19 08/28/19 08/28/19 23:07 23:07 23:22 WBC RBC Hgb Hct MCV MCH MCHC RDW Plt Count Seg Neutrophils % VBG pH 7.46 H VBG pCO2 32.2 L VBG HCO3 22.1 VBG Base Excess -0.9 Sodium Potassium Chloride Carbon Dioxide Anion Gap BUN Creatinine Est GFR ( Amer) Glucose Lactic Acid Calcium Magnesium 1.3 L Total Bilirubin AST Alkaline Phosphatase Total Protein Albumin Serum HCG, Qual NEGATIVE Urine Color Urine Appearance Urine pH Ur Specific Pegram Urine Protein Urine Glucose (UA) Urine Ketones Urine Blood Urine Nitrite Ur Leukocyte Esterase Urine WBC (Auto) Urine RBC (Auto) 05/22/19 01:35 WBC RBC Hgb Hct MCV MCH MCHC RDW Plt Count Seg Neutrophils % VBG pH VBG pCO2 VBG HCO3 VBG Base Excess Sodium Potassium Chloride Carbon Dioxide Anion Gap BUN Creatinine Est GFR ( Amer) Glucose Lactic Acid Calcium Magnesium Total Bilirubin AST Alkaline Phosphatase Total Protein Albumin Serum HCG, Qual Urine Color YELLOW Urine Appearance CLOUDY Urine pH 6.0 Ur Specific Pegram 1.018 Urine Protein 100 H Urine Glucose (UA) NEGATIVE Urine Ketones NEGATIVE Urine Blood LARGE H Urine Nitrite NEGATIVE Ur Leukocyte Esterase TRACE H Urine WBC (Auto) 23 Urine RBC (Auto) 18 05/21/19 05/22/19 23:07 02:06 Troponin I 0.098 0.098 Impressions: Chest X-Ray 05/21/19 23:04 IMPRESSION: 1. No acute pulmonary findings. 2. Previous sternotomy Assessment and Plan - Diagnosis (1) Endocarditis Is this a current diagnosis for this admission?: Yes Plan: Telemetry admission, vancomycin, cefepime, Flagyl ordered. Follow-up blood cultures, TTE and consider transfer for SANJU. (2) Hypokalemia Is this a current diagnosis for this admission?: Yes Plan: Secondary to #1, repletion and reevaluation of chemistry (3) Hyponatremia Is this a current diagnosis for this admission?: Yes Plan: Secondary to #1, will saline challenge, follow-up chemistry (4) SIRS (systemic inflammatory response syndrome) Is this a current diagnosis for this admission?: Yes Plan: Secondary to #1, follow-up blood culture, TTE echo (5) IV drug abuse Is this a current diagnosis for this admission?: Yes Plan: Supportive care, Suboxone as needed to avoid withdrawal (6) Thrombocytopenia Is this a current diagnosis for this admission?: Yes Plan: Secondary to #1, follow-up CBC - Time Time Spent with patient: 15-24 minutes - Inpatient Certification Medical Necessity: Need Close Monitoring Due to Risk of Patient Decompensation
[2019-05-22] MEDS: MAGNESIUM SULFATE/D5W 1 GM/100 ML RTUPB IV SCH ×2 (06:33→08:53)
--- NOTE | 2019-05-22 07:31 | EKG REPORT ---
SEVERITY:- ABNORMAL ECG - SINUS TACHYCARDIA CHANI, CONSIDER BIATRIAL ABNORMALITIES NONSPECIFIC T ABNORMALITIES, DIFFUSE LEADS : Confirmed by: Tyler Delacruz MD 22-May-2019 07:30:47
[2019-05-22] MEDS: METRONIDAZOLE 500 MG/NS RTU 500 MG/100 ML RTUPB IV SCH ×4 (07:50→23:28)
[2019-05-22] MEDS ORDERED: METOPROLOL TARTRATE PF/INJ 5 MG/5 ML SDV IV ONE (08:15)
[2019-05-22] MEDS: DOCUSATE SODIUM 100 MG CAPSULE PO SCH ×2 (09:41→17:11)
[2019-05-22] MEDS ORDERED: BUPRENORPHINE HCL 2 MG SUBLINGUAL TABLET SL SCH (10:00)
[2019-05-22] MEDS ORDERED: CEFTRIAXONE 1 GM/D5W RTU 1 GM/50 ML RTUPB IV SCH (10:00)
[2019-05-22] MEDS: CEFEPIME 1 GM/D5W RTU 1 GM/50 ML RTUPB IV SCH ×2 (10:54→22:06)
--- NOTE | 2019-05-22 10:56 | RADIOLOGY REPORT (SQ) ---
EXAM DESCRIPTION: PICC INSERTION; FLUORO/CV PLACEMENT; U/S GUIDE FOR VASCULAR ACCESS COMPLETED DATE/TIME: 05/22/2019 10:41 am REASON FOR STUDY: MULTIPLE UNSUCCESSFUL STICKS; IV ACCESS COMPARISON: AP chest 05/21/2019 FLUOROSCOPY TIME: 14 seconds 1 digital fluoroscopic image and 1 ultrasound image saved to PACS. TECHNIQUE: Fluoroscopic and ultrasound guided PICC placement. LIMITATIONS: None. PROCEDURE: After written consent and assessment were obtained, the patient was brought into the fluo roscopy room and placed supine on the table. Ultrasound evaluation of potential access sites were per formed. After successfully identifying a patent left basilic vein, the left arm was prepped and drape d in a sterile fashion along with the ultrasound probe. The entry site was anesthetized with 1% lidoc jesus. A 21 gauge 7 cm needle was advanced through the skin and into the basilic vein under live ultra sound guidance. An ultrasound image was saved to PACS confirming access site. A .018 guide wire was then inserted through the needle and into the venous system. The needle was then removed and an 11 b lade scalpel was used to make a 1cm skin incision. A 5 fr peel-away sheath was advanced over the wir e and into the venous system. A measurement was then made using the existing wire and live fluoroscop ic guidance. The wire was then removed and trimmed. The PICC was advanced through the peel-away sheat h and into the venous system. The peel-away sheath was removed and the catheter was adhered to the pa tients arm with a stat lock. The catheter was then aspirated and flushed and a sterile bandage was pl aced over the access site. A fluoroscopic spot image was saved to PACS confirming the catheter tip w ithin the superior vena cava. IMPRESSION: SUCCESSFUL PLACEMENT OF A 5 FR DUAL LUMEN 39 CM PICC IN THE LEFT BASILIC VEIN. COMMENT: Patient medication list reviewed: Yes- Quality ID# 130:Eligible professional attests to doc umenting in the medical record they obtained, updated, or reviewed the patient's current medications. . Quality ID 145: Final reports for procedures using fluoroscopy that document radiation exposure arias liliana, or exposure time and number of fluorographic images (if radiation exposure indices are not avail able) Quality ID #76: The patient was prepped and draped using maximum sterile barrier technique including cap, mask, sterile gown, sterile gloves, a large sterile sheet, hand hygiene, and 2% Chlorhexidine fo r cutaneous antisepsis. When ultrasound is used, sterile ultrasound techniques are followed requiring sterile gel and sterile probes. TECHNICAL DOCUMENTATION: JOB ID: [id number] [employer]- All Rights Reserved rev-02/08 Reading location - IP/workstation name: [email or web address]
[2019-05-22] MEDS: ACETAMINOPHEN 325 MG TABLET PO PRN (12:08)
[2019-05-22] MEDS: POTASSIUM CHLORIDE 20 MEQ/50 ML RTU IV SCH ×2 (12:27→14:18)
[2019-05-22] MEDS: VANCOMYCIN HCL 1,000 MG in DEXTROSE 5%-WATER 250 ML IV SCH (16:52)
[2019-05-22] MEDS: NORMAL SALINE 10 ML SDV (SCHEDULED) IV SCH (22:07)
[2019-05-23] MEDS: VANCOMYCIN HCL 1,000 MG in DEXTROSE 5%-WATER 250 ML IV SCH ×3 (03:07→17:04)
[2019-05-23] MEDS: PROMETHAZINE HCL 25 MG TABLET PO PRN (03:09)
[2019-05-23] MEDS: NORMAL SALINE 1000 ML 1,000 ML IV PRN ×2 (05:12→15:40)
[2019-05-23] MEDS: METRONIDAZOLE 500 MG/NS RTU 500 MG/100 ML RTUPB IV SCH (05:12)
[2019-05-23] MEDS: HEPARIN SOD (PORCINE) 5,000 UNIT/ML 1 ML VIAL SUBCUT SCH ×3 (05:15→21:50)
[2019-05-23 05:54] LABS: ABSOLUTE MONOCYTES (AUTO) 0.7 10^3/uL (0.1-1.4); ABSOLUTE NEUT (AUTO) 14.2 10^3/uL (1.7-8.2); BASOPHILS % (AUTO) 0.1 % (0-2); EOSINOPHILS % (AUTO) 0.2 % (0-6); HEMATOCRIT 32.1 % (36.0-47.0); LYMPHOCYTES % (AUTO) 6.2 % (13-45); MEAN CORPUSCULAR HEMOGLOBIN 25.4 pg (27.0-33.4); MEAN CORPUSCULAR HGB CONC 32.8 g/dL (32.0-36.0); MEAN CORPUSCULAR VOLUME 78 fl (80-97); MONOCYTES % (AUTO) 4.3 % (3-13); RED BLOOD COUNT 4.14 10^6/uL (3.72-5.28); RED CELL DISTRIBUTION WIDTH 18.3 % (11.5-14.0); SEGMENTED NEUTROPHILS % (AUTO) 89.2 % (42-78); TOTAL CELLS COUNTED % (AUTO) 100 %; WHITE BLOOD COUNT 15.9 10^3/uL (4.0-10.5)
[2019-05-23 06:14] LABS: ANION GAP 9 (5-19); BLOOD UREA NITROGEN 19 mg/dL (7-20); CALCIUM 7.9 mg/dL (8.4-10.2); CARBON DIOXIDE 24 mmol/L (22-30); CHLORIDE 100 mmol/L (98-107); GLUCOSE 140 mg/dL (75-110)
[2019-05-23 06:17] LABS: HEMOGLOBIN 10.5 g/dL (12.0-15.5); PLATELET COUNT 72 10^3/uL (150-450)
[2019-05-23] MEDS ORDERED: (PENDING PHARMACY ID) (Buprenorphine Hcl/Naloxone Hcl [Suboxone 8 Mg-2 Mg Sl Film] 1 FILM) SL SCH (10:00)
[2019-05-23] MEDS: DOCUSATE SODIUM 100 MG CAPSULE PO SCH ×2 (10:00→17:04)
[2019-05-23] MEDS: CEFEPIME 1 GM/D5W RTU 1 GM/50 ML RTUPB IV SCH (10:07)
[2019-05-23] MEDS: NORMAL SALINE 10 ML SDV (SCHEDULED) IV SCH ×2 (10:07→21:50)
[2019-05-23] MEDS: BUPRENORPHINE HCL 2 MG SUBLINGUAL TABLET SL SCH ×2 (10:07→21:48)
[2019-05-23] MEDS: POTASSI CL 20 MEQ/50 ML RIDER 20 MEQ/50 ML RTUPB IV SCH ×2 (10:21→13:21)
[2019-05-23] MEDS: KETOROLAC TROMETHAMINE INJ/PF 30 MG/1 ML SDV IV PRN (13:20)
--- NOTE | 2019-05-23 17:52 | PDOC PROGRESS REPORT ---
Subjective Progress Note for:: 05/23/19 Subjective:: No adverse events overnight. No new complaints. No fevers. No signs of opiate withdrawal. Eating and drinking without difficulty. Reason For Visit: IVDU,SEPSIS,ENDOCARDITIS Physical Exam Vital Signs: Temp Pulse Resp BP Pulse Ox 98.8 F 72 14 114/70 100 05/23/19 12:00 05/23/19 15:53 05/23/19 15:53 05/23/19 12:00 05/23/19 15:53 Intake & Output 05/22/19 05/23/19 05/24/19 06:59 06:59 06:59 Intake Total 1883 5126 2244 Output Total 100 475 Balance 1783 4651 2244 Weight 76.3 kg 78.8 kg General appearance: PRESENT: no acute distress, cooperative, disheveled Respiratory exam: PRESENT: clear to auscultation sandrita, symmetrical, unlabored. ABSENT: accessory muscle use, chest wall tenderness, decreased breath sounds, prolonged expiratory phas, rales, rhonchi, tachypnea, wheezes Cardiovascular exam: PRESENT: RRR, +S1, +S2 Pulses: PRESENT: normal carotid pulses Vascular exam: PRESENT: normal capillary refill GI/Abdominal exam: PRESENT: normal bowel sounds, soft. ABSENT: distended, guarding, rebound, tenderness Extremities exam: ABSENT: clubbing, pedal edema Musculoskeletal exam: PRESENT: normal inspection. ABSENT: deformity Neurological exam: PRESENT: alert, awake, oriented to person, oriented to place, oriented to situation Psychiatric exam: PRESENT: appropriate affect, normal mood Skin exam: PRESENT: dry, warm Results Laboratory Results: 05/23/19 05:36 05/23/19 05:36 05/23/19 05/23/19 05/23/19 05:36 05:36 05:36 WBC 15.9 H RBC 4.14 Hgb 10.5 L D Hct 32.1 L MCV 78 L MCH 25.4 L MCHC 32.8 RDW 18.3 H Plt Count 72 L Seg Neutrophils % 89.2 H Sodium 133.0 L Potassium 3.0 L* Chloride 100 Carbon Dioxide 24 Anion Gap 9 BUN 19 Creatinine 0.74 Est GFR ( Amer) > 60 Glucose 140 H Calcium 7.9 L Magnesium 1.9 05/21/19 05/22/19 05/22/19 23:07 02:06 11:00 Troponin I 0.098 0.098 0.070 05/22/19 05/22/19 05/22/19 14:00 14:35 20:04 Troponin I Cancelled 0.060 0.037 Impressions: Chest X-Ray 05/21/19 23:04 IMPRESSION: 1. No acute pulmonary findings. 2. Previous sternotomy Guidance Fluoroscopy 05/22/19 00:00 IMPRESSION: SUCCESSFUL PLACEMENT OF A 5 FR DUAL LUMEN 39 CM PICC IN THE LEFT BASILIC VEIN. Interventional Vascular Procedure 05/22/19 00:00 IMPRESSION: SUCCESSFUL PLACEMENT OF A 5 FR DUAL LUMEN 39 CM PICC IN THE LEFT BASILIC VEIN. PICC Line Insertion 05/22/19 00:00 IMPRESSION: SUCCESSFUL PLACEMENT OF A 5 FR DUAL LUMEN 39 CM PICC IN THE LEFT BASILIC VEIN. Assessment and Plan - Diagnosis (1) Gram-negative bacteremia Is this a current diagnosis for this admission?: Yes Plan: She is on cefepime. Were awaiting the culture results. We will going to see if this matches up with what is in her urine. (2) UTI (urinary tract infection) Qualifiers: Urinary tract infection type: acute cystitis Hematuria presence: without hematuria Qualified Code(s): N30.00 - Acute cystitis without hematuria Is this a current diagnosis for this admission?: Yes Plan: She is currently on broad-spectrum antibiotic coverage and we are awaiting the final results to see if it is the same organism it is in the blood. (3) Hypokalemia Is this a current diagnosis for this admission?: Yes Plan: Replaced her magnesium, now were trying to get her potassium up with IV supplements. (4) IV drug abuse Is this a current diagnosis for this admission?: Yes Plan: She is on Subutex. - Time Time Spent with patient: 15-24 minutes
[2019-05-23] MEDS ORDERED: NALOXONE HCL SL SCH (18:00)
[2019-05-23] MEDS ORDERED: [UNRECOGNIZED DRUG - OTHER] SL SCH (18:00)
[2019-05-23] MEDS ORDERED: BUPRENORPHINE HCL SL SCH (18:00)
[2019-05-23] MEDS: CEFEPIME HCL 2 GM in DEXTROSE 5%-WATER 50 ML IV SCH (21:45)
[2019-05-23] MEDS ORDERED: CEFEPIME 2 GM/D5W RTU 2 GM/50 ML RTUPB IV SCH (22:00)
[2019-05-24] MEDS: VANCOMYCIN HCL 1,000 MG in DEXTROSE 5%-WATER 250 ML IV SCH ×2 (02:15→11:14)
[2019-05-24] MEDS: KETOROLAC TROMETHAMINE INJ/PF 30 MG/1 ML SDV IV PRN ×3 (02:43→22:02)
[2019-05-24] MEDS: HEPARIN SOD (PORCINE) 5,000 UNIT/ML 1 ML VIAL SUBCUT SCH ×3 (05:07→21:55)
[2019-05-24] MEDS: PROMETHAZINE HCL 25 MG TABLET PO PRN ×2 (08:25→22:02)
[2019-05-24] MEDS: BUPRENORPHINE HCL 2 MG SUBLINGUAL TABLET SL SCH ×2 (09:12→21:53)
[2019-05-24] MEDS: CEFEPIME HCL 2 GM in DEXTROSE 5%-WATER 50 ML IV SCH ×2 (09:12→22:03)
[2019-05-24] MEDS: NORMAL SALINE 10 ML SDV (SCHEDULED) IV SCH ×2 (09:13→21:55)
[2019-05-24] MEDS: DOCUSATE SODIUM 100 MG CAPSULE PO SCH ×2 (09:22→17:16)
[2019-05-24] MEDS: ACETAMINOPHEN 325 MG TABLET PO PRN (10:32)
[2019-05-24 11:50] LABS: VANCOMYCIN,TROUGH 25.3 ug/mL (5.0-20.0)
[2019-05-24] MEDS ORDERED: NORMAL SALINE 1000 ML 1,000 ML IV ONE (12:45)
--- NOTE | 2019-05-24 16:27 | PDOC PROGRESS REPORT ---
Subjective Progress Note for:: 05/24/19 Subjective:: No adverse events overnight. No new complaints. Vital signs been stable. Eating and drinking without difficulty. No fevers. Reason For Visit: IVDU,SEPSIS,ENDOCARDITIS Physical Exam Vital Signs: Temp Pulse Resp BP Pulse Ox 99.2 F 89 22 H 95/36 L 100 05/24/19 11:49 05/24/19 14:00 05/24/19 11:49 05/24/19 11:49 05/24/19 11:49 Intake & Output 05/23/19 05/24/19 05/25/19 06:59 06:59 06:59 Intake Total 5126 4194 1300 Output Total 475 Balance 4651 4194 1300 Weight 78.8 kg 77.9 kg General appearance: PRESENT: no acute distress, cooperative, disheveled Respiratory exam: PRESENT: clear to auscultation sandrita, symmetrical, unlabored. ABSENT: accessory muscle use, chest wall tenderness, decreased breath sounds, prolonged expiratory phas, rales, rhonchi, tachypnea, wheezes Cardiovascular exam: PRESENT: RRR, +S1, +S2 Pulses: PRESENT: normal carotid pulses Vascular exam: PRESENT: normal capillary refill GI/Abdominal exam: PRESENT: normal bowel sounds, soft. ABSENT: distended, gua rding, rebound, tenderness Extremities exam: ABSENT: clubbing, pedal edema Musculoskeletal exam: PRESENT: normal inspection. ABSENT: deformity Neurological exam: PRESENT: alert, awake, oriented to person, oriented to place, oriented to situation Psychiatric exam: PRESENT: appropriate affect, normal mood Skin exam: PRESENT: dry, warm Results Laboratory Results: 05/23/19 05:36 05/23/19 05:36 05/22/19 00:40 Blood Blood Culture - Final Pseudomonas Aeruginosa 05/21/19 23:07 Blood Blood Culture - Final Pseudomonas Aeruginosa 05/22/19 01:35 Clean Catch Midstream Urine Culture - Final Escherichia Coli Lactobacillus (Vaginal Darshana) 05/21/19 05/22/19 05/22/19 23:07 02:06 11:00 Troponin I 0.098 0.098 0.070 05/22/19 05/22/19 05/22/19 14:00 14:35 20:04 Troponin I Cancelled 0.060 0.037 Impressions: Chest X-Ray 08/28/19 23:04 IMPRESSION: 1. No acute pulmonary findings. 2. Previous sternotomy Guidance Fluoroscopy 05/22/19 00:00 IMPRESSION: SUCCESSFUL PLACEMENT OF A 5 FR DUAL LUMEN 39 CM PICC IN THE LEFT BASILIC VEIN. Interventional Vascular Procedure 05/22/19 00:00 IMPRESSION: SUCCESSFUL PLACEMENT OF A 5 FR DUAL LUMEN 39 CM PICC IN THE LEFT BASILIC VEIN. PICC Line Insertion 05/22/19 00:00 IMPRESSION: SUCCESSFUL PLACEMENT OF A 5 FR DUAL LUMEN 39 CM PICC IN THE LEFT BASILIC VEIN. Assessment and Plan - Diagnosis (1) Gram-negative bacteremia Is this a current diagnosis for this admission?: Yes Plan: She has a Pseudomonas in the blood. We will discontinue the vancomycin. It does not match up with what is in the urine, which is an E. coli. Likely from IV drug use. With this organism, she is going to need a SANJU. We will try to set this up. (2) UTI (urinary tract infection) Qualifiers: Urinary tract infection type: acute cystitis Hematuria presence: without hematuria Qualified Code(s): N30.00 - Acute cystitis without hematuria Is this a current diagnosis for this admission?: Yes Plan: This is an E. coli, which is not what is in the blood. It will respond to the same antibiotics. (3) Hypokalemia Is this a current diagnosis for this admission?: Yes Plan: Awaiting repeat BMP to see if she needs more potassium. (4) IV drug abuse Is this a current diagnosis for this admission?: Yes Plan: She is on Subutex. - Time Time Spent with patient: 25-34 minutes
[2019-05-24 16:38] LABS: ANION GAP 9 (5-19); BLOOD UREA NITROGEN 14 mg/dL (7-20); CALCIUM 8.1 mg/dL (8.4-10.2); CARBON DIOXIDE 20 mmol/L (22-30); CHLORIDE 103 mmol/L (98-107); GLUCOSE 109 mg/dL (75-110)
[2019-05-24 16:41] LABS: POTASSIUM 2.9 mmol/L (3.6-5.0)
[2019-05-24] MEDS: POTASSI CL 20 MEQ/50 ML RIDER 20 MEQ/50 ML RTUPB IV SCH ×3 (17:15→22:40)
[2019-05-24] MEDS ORDERED: VANCOMYCIN HCL 1,000 MG in DEXTROSE 5%-WATER 250 ML IV SCH (22:00)
[2019-05-25] MEDS: HEPARIN SOD (PORCINE) 5,000 UNIT/ML 1 ML VIAL SUBCUT SCH ×3 (05:22→22:21)
[2019-05-25] MEDS: PROMETHAZINE HCL 25 MG TABLET PO PRN ×2 (06:50→16:38)
[2019-05-25] MEDS: KETOROLAC TROMETHAMINE INJ/PF 30 MG/1 ML SDV IV PRN ×3 (06:50→22:29)
[2019-05-25] MEDS: BUPRENORPHINE HCL 2 MG SUBLINGUAL TABLET SL SCH ×2 (09:13→22:18)
[2019-05-25] MEDS: CEFEPIME HCL 2 GM in DEXTROSE 5%-WATER 50 ML IV SCH ×2 (09:14→22:16)
[2019-05-25] MEDS: NORMAL SALINE 10 ML SDV (SCHEDULED) IV SCH ×2 (09:15→22:33)
[2019-05-25] MEDS: DOCUSATE SODIUM 100 MG CAPSULE PO SCH ×2 (09:23→17:23)
--- NOTE | 2019-05-25 14:38 | PDOC PROGRESS REPORT ---
Subjective Progress Note for:: 05/25/19 Subjective:: No adverse events overnight. No new complaints. Vital signs been stable. Eating and drinking without difficulty. No fevers. No body aches. Reason For Visit: IVDU,SEPSIS,ENDOCARDITIS Physical Exam Vital Signs: Temp Pulse Resp BP Pulse Ox 98.3 F 80 14 94/71 L 82 L 05/25/19 12:08 05/25/19 12:08 05/25/19 12:08 05/25/19 12:08 05/25/19 12:08 Intake & Output 05/24/19 05/25/19 05/26/19 06:59 06:59 06:59 Intake Total 4194 2150 290 Balance 4194 2150 290 Weight 77.9 kg 85.9 kg General appearance: PRESENT: no acute distress, cooperative, disheveled Respiratory exam: PRESENT: clear to auscultation sandrita, symmetrical, unlabored. ABSENT: accessory muscle use, chest wall tenderness, decreased breath sounds, prolonged expiratory phas, rales, rhonchi, tachypnea, wheezes Cardiovascular exam: PRESENT: RRR, +S1, +S2 Pulses: PRESENT: normal carotid pulses Vascular exam: PRESENT: normal capillary refill GI/Abdominal exam: PRESENT: normal bowel sounds, soft. ABSENT: distended, guarding, rebound, tenderness Extremities exam: ABSENT: clubbing, pedal edema Musculoskeletal exam: PRESENT: normal inspection. ABSENT: deformity Neurological exam: PRESENT: alert, awake, oriented to person, oriented to place, oriented to situation Psychiatric exam: PRESENT: appropriate affect, normal mood Skin exam: PRESENT: dry, warm Results Laboratory Results: 05/23/19 05:36 05/24/19 11:10 05/24/19 11:10 Sodium 132.2 L Potassium 2.9 L* Chloride 103 Carbon Dioxide 20 L Anion Gap 9 BUN 14 Creatinine 0.90 Est GFR ( Amer) > 60 Glucose 109 Calcium 8.1 L 05/22/19 00:40 Blood Blood Culture - Final Pseudomonas Aeruginosa 05/21/19 23:07 Blood Blood Culture - Final Pseudomonas Aeruginosa 05/22/19 01:35 Clean Catch Midstream Urine Culture - Final Escherichia Coli Lactobacillus (Vaginal Darshana) 05/21/19 05/22/19 05/22/19 23:07 02:06 11:00 Troponin I 0.098 0.098 0.070 05/22/19 05/22/19 05/22/19 14:00 14:35 20:04 Troponin I Cancelled 0.060 0.037 Impressions: Chest X-Ray 05/21/19 23:04 IMPRESSION: 1. No acute pulmonary findings. 2. Previous sternotomy Guidance Fluoroscopy 05/22/19 00:00 IMPRESSION: SUCCESSFUL PLACEMENT OF A 5 FR DUAL LUMEN 39 CM PICC IN THE LEFT BASILIC VEIN. Interventional Vascular Procedure 05/22/19 00:00 IMPRESSION: SUCCESSFUL PLACEMENT OF A 5 FR DUAL LUMEN 39 CM PICC IN THE LEFT BASILIC VEIN. PICC Line Insertion 05/22/19 00:00 IMPRESSION: SUCCESSFUL PLACEMENT OF A 5 FR DUAL LUMEN 39 CM PICC IN THE LEFT BASILIC VEIN. Assessment and Plan - Diagnosis (1) Gram-negative bacteremia Is this a current diagnosis for this admission?: Yes Plan: It is a Pseudomonas. Is pansensitive. Because of its association with infective endocarditis, she is going to have to get a SANJU. We will call to make the arrangements. (2) UTI (urinary tract infection) Qualifiers: Urinary tract infection type: acute cystitis Hematuria presence: without hematuria Qualified Code(s): N30.00 - Acute cystitis without hematuria Is this a current diagnosis for this admission?: Yes Plan: This is an E. coli, which is not what is in the blood. It will respond to the same antibiotics. (3) Hypokalemia Is this a current diagnosis for this admission?: Yes Plan: Awaiting repeat BMP to see if she needs more potassium. We replaced her potassium yesterday but it seems like it made no difference. Her magnesium was corrected to normal. (4) IV drug abuse Is this a current diagnosis for this admission?: Yes Plan: She is on Subutex. - Time Time Spent with patient: 15-24 minutes
[2019-05-25 17:22] LABS: ANION GAP 7 (5-19); BLOOD UREA NITROGEN 12 mg/dL (7-20); CALCIUM 8.1 mg/dL (8.4-10.2); CARBON DIOXIDE 20 mmol/L (22-30); CHLORIDE 108 mmol/L (98-107); GLUCOSE 109 mg/dL (75-110); POTASSIUM 3.9 mmol/L (3.6-5.0)
[2019-05-25] MEDS ORDERED: PROMETHAZINE HCL 25 MG TABLET PO ONE (22:30)
[2019-05-26] MEDS: HEPARIN SOD (PORCINE) 5,000 UNIT/ML 1 ML VIAL SUBCUT SCH ×3 (05:08→22:22)
[2019-05-26] MEDS: KETOROLAC TROMETHAMINE INJ/PF 30 MG/1 ML SDV IV PRN ×2 (09:25→22:24)
[2019-05-26] MEDS: PROMETHAZINE HCL 25 MG TABLET PO PRN ×2 (09:26→22:26)
[2019-05-26] MEDS: CEFEPIME HCL 2 GM in DEXTROSE 5%-WATER 50 ML IV SCH ×2 (09:26→22:21)
[2019-05-26] MEDS: DOCUSATE SODIUM 100 MG CAPSULE PO SCH ×2 (09:26→17:07)
[2019-05-26] MEDS: NORMAL SALINE 10 ML SDV (SCHEDULED) IV SCH ×2 (09:28→22:23)
[2019-05-26] MEDS: BUPRENORPHINE HCL 2 MG SUBLINGUAL TABLET SL SCH ×2 (09:48→22:24)
--- NOTE | 2019-05-26 17:02 | PDOC PROGRESS REPORT ---
Subjective Progress Note for:: 05/26/19 Subjective:: No adverse events overnight. No new complaints. Vital signs been stable. Eating and drinking without difficulty. No fevers. Reason For Visit: IVDU,SEPSIS,ENDOCARDITIS Physical Exam Vital Signs: Temp Pulse Resp BP Pulse Ox 98.4 F 91 18 125/90 H 100 05/26/19 15:36 05/26/19 15:36 05/26/19 15:36 05/26/19 15:36 05/26/19 13:15 Intake & Output 05/25/19 05/26/19 05/27/19 06:59 06:59 06:59 Intake Total 2150 1125 1092 Output Total 1000 Balance 2150 125 1092 Weight 85.9 kg 87.3 kg General appearance: PRESENT: no acute distress, cooperative, disheveled Respiratory exam: PRESENT: clear to auscultation sandrita, symmetrical, unlabored. ABSENT: accessory muscle use, chest wall tenderness, decreased breath sounds, prolonged expiratory phas, rales, rhonchi, tachypnea, wheezes Cardiovascular exam: PRESENT: RRR, +S1, +S2 Pulses: PRESENT: normal carotid pulses Vascular exam: PRESENT: normal capillary refill GI/Abdominal exam: PRESENT: normal bowel sounds, soft. ABSENT: distended, gua rding, rebound, tenderness Extremities exam: ABSENT: clubbing, pedal edema Musculoskeletal exam: PRESENT: normal inspection. ABSENT: deformity Neurological exam: PRESENT: alert, awake, oriented to person, oriented to place, oriented to situation Psychiatric exam: PRESENT: appropriate affect, normal mood Skin exam: PRESENT: dry, warm Results Laboratory Results: 05/23/19 05:36 05/25/19 16:45 05/25/19 16:45 Sodium 134.9 L Potassium 3.9 Chloride 108 H Carbon Dioxide 20 L Anion Gap 7 BUN 12 Creatinine 0.89 Est GFR ( Amer) > 60 Glucose 109 Calcium 8.1 L 05/21/19 05/22/19 05/22/19 23:07 02:06 11:00 Troponin I 0.098 0.098 0.070 05/22/19 05/22/19 05/22/19 14:00 14:35 20:04 Troponin I Cancelled 0.060 0.037 Impressions: Chest X-Ray 05/21/19 23:04 IMPRESSION: 1. No acute pulmonary findings. 2. Previous sternotomy Guidance Fluoroscopy 05/22/19 00:00 IMPRESSION: SUCCESSFUL PLACEMENT OF A 5 FR DUAL LUMEN 39 CM PICC IN THE LEFT BASILIC VEIN. Interventional Vascular Procedure 05/22/19 00:00 IMPRESSION: SUCCESSFUL PLACEMENT OF A 5 FR DUAL LUMEN 39 CM PICC IN THE LEFT BASILIC VEIN. PICC Line Insertion 05/22/19 00:00 IMPRESSION: SUCCESSFUL PLACEMENT OF A 5 FR DUAL LUMEN 39 CM PICC IN THE LEFT BASILIC VEIN. Assessment and Plan - Diagnosis (1) Gram-negative bacteremia Is this a current diagnosis for this admission?: Yes Plan: She is growing a Pseudomonas. This is frequently associated with IV drug use. I spoke with her food or baggage handling rampman in [place]. They are going to put her on the schedule tentatively for Sunday for a SANJU, but in the meantime they recommended going ahead and getting a TTE, and if we can get the information from that that we need, then we can discontinue her SANJU plan (2) UTI (urinary tract infection) Qualifiers: Urinary tract infection type: acute cystitis Hematuria presence: without hematuria Qualified Code(s): N30.00 - Acute cystitis without hematuria Is this a current diagnosis for this admission?: Yes Plan: An E. coli, will be treated by whatever antibiotic we wind up choosing for her bacteremia (3) Hypokalemia Is this a current diagnosis for this admission?: Yes Plan: Awaiting repeat BMP to see if she needs more potassium. We replaced her potassium yesterday but it seems like it made no difference. Her magnesium was corrected to normal. (4) IV drug abuse Is this a current diagnosis for this admission?: Yes Plan: She is on Subutex. - Time Time Spent with patient: 15-24 minutes
[2019-05-27] MEDS: HEPARIN SOD (PORCINE) 5,000 UNIT/ML 1 ML VIAL SUBCUT SCH ×3 (05:31→21:26)
[2019-05-27] MEDS: KETOROLAC TROMETHAMINE INJ/PF 30 MG/1 ML SDV IV PRN ×2 (06:50→17:16)
[2019-05-27] MEDS: PROMETHAZINE HCL 25 MG TABLET PO PRN ×2 (06:51→17:16)
[2019-05-27] MEDS: DOCUSATE SODIUM 100 MG CAPSULE PO SCH ×2 (09:03→17:09)
[2019-05-27] MEDS: BUPRENORPHINE HCL 2 MG SUBLINGUAL TABLET SL SCH ×2 (09:09→21:24)
[2019-05-27] MEDS: CEFEPIME HCL 2 GM in DEXTROSE 5%-WATER 50 ML IV SCH ×2 (09:10→21:26)
[2019-05-27] MEDS: NORMAL SALINE 10 ML SDV (SCHEDULED) IV SCH ×2 (09:10→21:25)
[2019-05-27 10:59] LABS: ABSOLUTE MONOCYTES (AUTO) 0.7 10^3/uL (0.1-1.4); ABSOLUTE NEUT (AUTO) 5.7 10^3/uL (1.7-8.2); BASOPHILS % (AUTO) 0.3 % (0-2); EOSINOPHILS % (AUTO) 0.4 % (0-6); HEMATOCRIT 25.5 % (36.0-47.0); HEMOGLOBIN 8.3 g/dL (12.0-15.5); LYMPHOCYTES % (AUTO) 14.1 % (13-45); MEAN CORPUSCULAR HEMOGLOBIN 25.7 pg (27.0-33.4); MEAN CORPUSCULAR HGB CONC 32.5 g/dL (32.0-36.0); MEAN CORPUSCULAR VOLUME 79 fl (80-97); MONOCYTES % (AUTO) 8.9 % (3-13); PLATELET COUNT 178 10^3/uL (150-450); RED BLOOD COUNT 3.23 10^6/uL (3.72-5.28); RED CELL DISTRIBUTION WIDTH 17.9 % (11.5-14.0); SEGMENTED NEUTROPHILS % (AUTO) 76.3 % (42-78); TOTAL CELLS COUNTED % (AUTO) 100 %; WHITE BLOOD COUNT 7.4 10^3/uL (4.0-10.5)
[2019-05-27 11:05] LABS: ANION GAP 9 (5-19); BLOOD UREA NITROGEN 10 mg/dL (7-20); CALCIUM 8.1 mg/dL (8.4-10.2); CARBON DIOXIDE 18 mmol/L (22-30); CHLORIDE 107 mmol/L (98-107); GLUCOSE 114 mg/dL (75-110); POTASSIUM 3.5 mmol/L (3.6-5.0)
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
[2019-05-27] MEDS: NICOTINE 14 MG/24 HR PATCH.TD24 TD SCH (18:07)
[2019-05-27] MEDS: POTASSIUM CHLORIDE 10 MEQ CAPSULE.ER PO SCH (23:51)
[2019-05-28] MEDS: KETOROLAC TROMETHAMINE INJ/PF 30 MG/1 ML SDV IV PRN (00:29)
[2019-05-28 01:18] LABS: CREATINE KINASE MB 0.49 ng/mL (<4.55); TROPONIN I 0.077 ng/mL
[2019-05-28] MEDS: PROMETHAZINE HCL 25 MG TABLET PO PRN (04:47)
[2019-05-28 04:52] LABS: HEMATOCRIT 24.8 % (36.0-47.0); HEMOGLOBIN 8.1 g/dL (12.0-15.5); MEAN CORPUSCULAR HEMOGLOBIN 25.5 pg (27.0-33.4); MEAN CORPUSCULAR HGB CONC 32.5 g/dL (32.0-36.0); MEAN CORPUSCULAR VOLUME 79 fl (80-97); PLATELET COUNT 197 10^3/uL (150-450); RED BLOOD COUNT 3.16 10^6/uL (3.72-5.28); RED CELL DISTRIBUTION WIDTH 17.7 % (11.5-14.0); WHITE BLOOD COUNT 7.5 10^3/uL (4.0-10.5)
[2019-05-28 05:04] LABS: ANION GAP 8 (5-19); BLOOD UREA NITROGEN 10 mg/dL (7-20); CALCIUM 8.1 mg/dL (8.4-10.2); CARBON DIOXIDE 18 mmol/L (22-30); CHLORIDE 108 mmol/L (98-107); GLUCOSE 129 mg/dL (75-110); POTASSIUM 4.2 mmol/L (3.6-5.0)
[2019-05-28] MEDS: HEPARIN SOD (PORCINE) 5,000 UNIT/ML 1 ML VIAL SUBCUT SCH (05:07)
[2019-05-28] MEDS ORDERED: MAGNESIUM SULFATE/D5W 1 GM/100 ML RTUPB IV ONE (08:20)
[2019-05-28] MEDS: KETOROLAC TROMETHAMINE INJ/PF 30 MG/1 ML SDV IV SCH ×4 (08:43→23:08)
[2019-05-28] MEDS: PROMETHAZINE HCL INJ 25 MG/1 ML VIAL IV PRN ×4 (08:43→23:02)
[2019-05-28 09:13] LABS: HEMATOCRIT 26.2 % (36.0-47.0); HEMOGLOBIN 8.6 g/dL (12.0-15.5); MEAN CORPUSCULAR HEMOGLOBIN 25.9 pg (27.0-33.4); MEAN CORPUSCULAR VOLUME 79 fl (80-97); PLATELET COUNT 227 10^3/uL (150-450); RED BLOOD COUNT 3.33 10^6/uL (3.72-5.28); WHITE BLOOD COUNT 8.3 10^3/uL (4.0-10.5)
[2019-05-28 09:37] LABS: ALBUMIN 2.6 g/dL (3.5-5.0); ALKALINE PHOSPHATASE 100 U/L (38-126); ANION GAP 8 (5-19); ASPARTATE AMINO TRANSFERASE 18 U/L (14-36); BILIRUBIN,DIRECT 0.3 mg/dL (0.0-0.4); BILIRUBIN,TOTAL 0.5 mg/dL (0.2-1.3); BLOOD UREA NITROGEN 9 mg/dL (7-20); CALCIUM 8.2 mg/dL (8.4-10.2); CARBON DIOXIDE 18 mmol/L (22-30); CHLORIDE 109 mmol/L (98-107); GLUCOSE 87 mg/dL (75-110); POTASSIUM 4.1 mmol/L (3.6-5.0); TOTAL PROTEIN 5.7 g/dL (6.3-8.2)
[2019-05-28] MEDS: CEFEPIME HCL 2 GM in DEXTROSE 5%-WATER 50 ML IV SCH ×2 (09:41→21:31)
[2019-05-28] MEDS: BUPRENORPHINE HCL 2 MG SUBLINGUAL TABLET SL SCH ×2 (09:41→21:34)
[2019-05-28] MEDS: DOCUSATE SODIUM 100 MG CAPSULE PO SCH ×2 (09:42→17:36)
[2019-05-28] MEDS: METOPROLOL SUCCINATE 50 MG TAB.SR.24H PO SCH (09:42)
[2019-05-28] MEDS: FUROSEMIDE 40 MG TABLET PO SCH (09:43)
[2019-05-28] MEDS: GABAPENTIN 300 MG CAPSULE PO SCH ×2 (09:43→17:39)
[2019-05-28] MEDS: POTASSIUM CHLORIDE 10 MEQ CAPSULE.ER PO SCH ×2 (09:43→21:30)
[2019-05-28] MEDS: DULOXETINE HCL 20 MG CAPSULE.DR PO SCH (09:43)
[2019-05-28] MEDS: NICOTINE 14 MG/24 HR PATCH.TD24 TD SCH (09:43)
[2019-05-28] MEDS: NORMAL SALINE 10 ML SDV (SCHEDULED) IV SCH ×2 (09:45→21:34)
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
[2019-05-28 15:00] LABS: ANION GAP 7 (5-19); BLOOD UREA NITROGEN 10 mg/dL (7-20); CALCIUM 8.1 mg/dL (8.4-10.2); CARBON DIOXIDE 21 mmol/L (22-30); CHLORIDE 109 mmol/L (98-107); GLUCOSE 100 mg/dL (75-110); POTASSIUM 4.3 mmol/L (3.6-5.0)
[2019-05-28] MEDS: ATORVASTATIN CALCIUM 40 MG TABLET PO SCH (21:30)
[2019-05-29] MEDS: PROMETHAZINE HCL INJ 25 MG/1 ML VIAL IV PRN ×5 (03:34→23:22)
--- NOTE | 2019-05-29 04:34 | RADIOLOGY REPORT (SQ) ---
CLINICAL HISTORY: abdominal pain COMPARISON: None. TECHNIQUE: US ABDOMEN DOPPLER on 05/28/2019 12:00 AM CDT FINDINGS: Liver is fatty in echotexture. Gallbladder is absent. Common bile duct measures two views. There is no ascites. Right kidney measures 10.4 and left kidney measures 11.2 cm. There is no hydronephrosis. Spleen is mildly enlarged 14.6 cm. IMPRESSION: Mild splenomegaly. No acute findings otherwise.
[2019-05-29] MEDS: KETOROLAC TROMETHAMINE INJ/PF 30 MG/1 ML SDV IV SCH ×4 (05:33→23:25)
[2019-05-29] MEDS: DOCUSATE SODIUM 100 MG CAPSULE PO SCH ×2 (10:49→18:50)
[2019-05-29] MEDS: CEFEPIME HCL 2 GM in DEXTROSE 5%-WATER 50 ML IV SCH ×2 (10:50→22:20)
[2019-05-29] MEDS: GABAPENTIN 300 MG CAPSULE PO SCH ×2 (10:51→18:54)
[2019-05-29] MEDS: NORMAL SALINE 10 ML SDV (SCHEDULED) IV SCH ×2 (10:51→22:17)
[2019-05-29] MEDS: METOPROLOL SUCCINATE 50 MG TAB.SR.24H PO SCH (10:51)
[2019-05-29] MEDS: BUPRENORPHINE HCL 2 MG SUBLINGUAL TABLET SL SCH ×2 (10:53→22:16)
[2019-05-29] MEDS: NICOTINE 14 MG/24 HR PATCH.TD24 TD SCH (10:54)
[2019-05-29] MEDS: FUROSEMIDE 40 MG TABLET PO SCH (10:54)
[2019-05-29] MEDS: DULOXETINE HCL 20 MG CAPSULE.DR PO SCH (10:54)
[2019-05-29] MEDS: POTASSIUM CHLORIDE 10 MEQ CAPSULE.ER PO SCH ×2 (10:56→22:16)
--- NOTE | 2019-05-29 14:20 | EKG REPORT ---
SEVERITY:- OTHERWISE NORMAL ECG - SINUS TACHYCARDIA : Confirmed by: Vonda Frank 29-May-2019 14:19:44
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
[2019-05-29] MEDS: PANTOPRAZOLE SODIUM 40 MG TABLET.DR PO SCH (18:54)
[2019-05-29] MEDS: ATORVASTATIN CALCIUM 40 MG TABLET PO SCH (22:16)
[2019-05-30 01:04] LABS: APPEARANCE,URINE CLEAR; BILIRUBIN,URINE NEGATIVE (NEGATIVE); COLOR,URINE YELLOW; GLUCOSE, URINE NEGATIVE (NEGATIVE); KETONES,URINE NEGATIVE (NEGATIVE); LEUKOCYTE ESTERASE,URINE NEGATIVE (NEGATIVE); NITRITE,URINE NEGATIVE (NEGATIVE); PROTEIN,URINE NEGATIVE (NEGATIVE); URINE SPECIFIC GRAVITY 1.006; UROBILINOGEN,URINE NEGATIVE mg/dL (<2.0)
[2019-05-30] MEDS: KETOROLAC TROMETHAMINE INJ/PF 30 MG/1 ML SDV IV SCH ×4 (05:42→23:11)
[2019-05-30] MEDS: PROMETHAZINE HCL INJ 25 MG/1 ML VIAL IV PRN ×4 (05:42→23:54)
[2019-05-30] MEDS: PANTOPRAZOLE SODIUM 40 MG TABLET.DR PO SCH ×2 (05:43→18:05)
[2019-05-30 06:18] LABS: HEMATOCRIT 24.4 % (36.0-47.0); MEAN CORPUSCULAR HEMOGLOBIN 25.8 pg (27.0-33.4); MEAN CORPUSCULAR HGB CONC 32.7 g/dL (32.0-36.0); MEAN CORPUSCULAR VOLUME 79 fl (80-97); PLATELET COUNT 255 10^3/uL (150-450); RED BLOOD COUNT 3.09 10^6/uL (3.72-5.28); RED CELL DISTRIBUTION WIDTH 17.5 % (11.5-14.0); WHITE BLOOD COUNT 10.2 10^3/uL (4.0-10.5)
[2019-05-30 06:33] LABS: ANION GAP 6 (5-19); BLOOD UREA NITROGEN 12 mg/dL (7-20); CALCIUM 8.4 mg/dL (8.4-10.2); CARBON DIOXIDE 22 mmol/L (22-30); CHLORIDE 109 mmol/L (98-107); GLUCOSE 80 mg/dL (75-110); POTASSIUM 5.1 mmol/L (3.6-5.0); URIC ACID 3.2 mg/dL (2.5-7.0)
[2019-05-30 08:06] LABS: ABSOLUTE RETICS # 0.011 10^6/uL (0.028-0.122)
[2019-05-30 08:27] LABS: IRON(TIBC) 18.8 ug/dL (37-170)
[2019-05-30 09:06] LABS: RETICULOCYTE COUNT (AUTO) 0.37 % (0.66-2.85)
[2019-05-30 09:30] LABS: FOLATE 5.53 ng/mL (>2.76)
[2019-05-30] MEDS: DULOXETINE HCL 20 MG CAPSULE.DR PO SCH (10:11)
[2019-05-30] MEDS: DOCUSATE SODIUM 100 MG CAPSULE PO SCH ×2 (10:12→18:12)
[2019-05-30] MEDS: FUROSEMIDE 40 MG TABLET PO SCH (10:16)
[2019-05-30] MEDS: PROMETHAZINE HCL 25 MG TABLET PO PRN (10:16)
[2019-05-30] MEDS: METOPROLOL SUCCINATE 50 MG TAB.SR.24H PO SCH (10:16)
[2019-05-30] MEDS: GABAPENTIN 300 MG CAPSULE PO SCH ×2 (10:16→18:05)
[2019-05-30] MEDS: CEFEPIME HCL 2 GM in DEXTROSE 5%-WATER 50 ML IV SCH ×2 (10:17→21:15)
[2019-05-30] MEDS: NORMAL SALINE 10 ML SDV (SCHEDULED) IV SCH ×2 (10:18→21:22)
[2019-05-30] MEDS: NICOTINE 14 MG/24 HR PATCH.TD24 TD SCH (10:19)
[2019-05-30] MEDS: ASCORBIC ACID 500 MG TABLET PO SCH ×2 (10:23→18:05)
[2019-05-30] MEDS: FERROUS SULFATE 325 MG TABLET PO SCH ×2 (10:23→18:05)
[2019-05-30] MEDS: BUPRENORPHINE HCL 2 MG SUBLINGUAL TABLET SL SCH ×2 (11:08→21:22)
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
[2019-05-30] MEDS: ATORVASTATIN CALCIUM 40 MG TABLET PO SCH (21:22)
[2019-05-31] MEDS: KETOROLAC TROMETHAMINE INJ/PF 30 MG/1 ML SDV IV SCH ×4 (06:27→23:13)
[2019-05-31] MEDS: PROMETHAZINE HCL INJ 25 MG/1 ML VIAL IV PRN ×4 (06:28→22:42)
[2019-05-31] MEDS: PANTOPRAZOLE SODIUM 40 MG TABLET.DR PO SCH ×2 (06:28→17:01)
[2019-05-31 07:00] LABS: HEMATOCRIT 24.5 % (36.0-47.0); HEMOGLOBIN 8.1 g/dL (12.0-15.5); MEAN CORPUSCULAR HEMOGLOBIN 26.2 pg (27.0-33.4); MEAN CORPUSCULAR HGB CONC 33.1 g/dL (32.0-36.0); MEAN CORPUSCULAR VOLUME 79 fl (80-97); PLATELET COUNT 289 10^3/uL (150-450); RED BLOOD COUNT 3.09 10^6/uL (3.72-5.28); RED CELL DISTRIBUTION WIDTH 17.8 % (11.5-14.0); WHITE BLOOD COUNT 9.5 10^3/uL (4.0-10.5)
[2019-05-31 07:20] LABS: ANION GAP 8 (5-19); BLOOD UREA NITROGEN 10 mg/dL (7-20); CALCIUM 7.3 mg/dL (8.4-10.2); CARBON DIOXIDE 17 mmol/L (22-30); CHLORIDE 114 mmol/L (98-107); CHOLESTEROL 60.35 mg/dL (0-200); GLUCOSE 91 mg/dL (75-110); POTASSIUM 4.1 mmol/L (3.6-5.0); TRIGLYCERIDES 86 mg/dL (<150)
[2019-05-31 07:30] LABS: DIRECT LDL 49 mg/dL (<100)
[2019-05-31] MEDS: ASCORBIC ACID 500 MG TABLET PO SCH ×2 (09:48→17:01)
[2019-05-31] MEDS: FERROUS SULFATE 325 MG TABLET PO SCH ×2 (09:48→17:01)
[2019-05-31] MEDS: GABAPENTIN 300 MG CAPSULE PO SCH ×2 (09:48→17:01)
[2019-05-31] MEDS: METOPROLOL SUCCINATE 50 MG TAB.SR.24H PO SCH (09:48)
[2019-05-31] MEDS: CEFEPIME HCL 2 GM in DEXTROSE 5%-WATER 50 ML IV SCH ×2 (09:49→22:28)
[2019-05-31] MEDS: BUPRENORPHINE HCL 2 MG SUBLINGUAL TABLET SL SCH ×2 (09:49→22:29)
[2019-05-31] MEDS: FUROSEMIDE 40 MG TABLET PO SCH (09:58)
[2019-05-31] MEDS: POTASSIUM CHLORIDE 10 MEQ CAPSULE.ER PO SCH (10:00)
[2019-05-31] MEDS: DOCUSATE SODIUM 100 MG CAPSULE PO SCH ×2 (10:14→17:11)
[2019-05-31] MEDS: DULOXETINE HCL 20 MG CAPSULE.DR PO SCH (10:15)
[2019-05-31] MEDS: NICOTINE 14 MG/24 HR PATCH.TD24 TD SCH (10:18)
[2019-05-31] MEDS: NORMAL SALINE 10 ML SDV (SCHEDULED) IV SCH ×2 (10:18→22:29)
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
[2019-05-31] MEDS: LEVOFLOXACIN 750 MG/D5W RTU 750 MG/150 ML RTUPB IV SCH (12:06)
[2019-05-31] MEDS: ATORVASTATIN CALCIUM 40 MG TABLET PO SCH (22:29)
[2019-06-01] MEDS: KETOROLAC TROMETHAMINE INJ/PF 30 MG/1 ML SDV IV SCH ×4 (05:19→23:20)
[2019-06-01] MEDS: PANTOPRAZOLE SODIUM 40 MG TABLET.DR PO SCH ×2 (05:20→17:28)
[2019-06-01] MEDS: PROMETHAZINE HCL INJ 25 MG/1 ML VIAL IV PRN ×4 (05:20→23:16)
[2019-06-01] MEDS: DOCUSATE SODIUM 100 MG CAPSULE PO SCH ×2 (09:25→17:53)
[2019-06-01] MEDS: ASCORBIC ACID 500 MG TABLET PO SCH ×2 (09:25→21:09)
[2019-06-01] MEDS: DULOXETINE HCL 20 MG CAPSULE.DR PO SCH (09:26)
[2019-06-01] MEDS: POTASSIUM CHLORIDE 10 MEQ CAPSULE.ER PO SCH (09:26)
[2019-06-01] MEDS: NICOTINE 14 MG/24 HR PATCH.TD24 TD SCH (09:26)
[2019-06-01] MEDS: FERROUS SULFATE 325 MG TABLET PO SCH ×2 (09:39→17:28)
[2019-06-01] MEDS: FUROSEMIDE 40 MG TABLET PO SCH (09:40)
[2019-06-01] MEDS: LEVOFLOXACIN 750 MG/D5W RTU 750 MG/150 ML RTUPB IV SCH (09:41)
[2019-06-01] MEDS: CEFEPIME HCL 2 GM in DEXTROSE 5%-WATER 50 ML IV SCH ×2 (09:41→21:08)
[2019-06-01] MEDS: METOPROLOL SUCCINATE 50 MG TAB.SR.24H PO SCH (09:41)
[2019-06-01] MEDS: GABAPENTIN 300 MG CAPSULE PO SCH ×2 (09:41→17:28)
[2019-06-01] MEDS: NORMAL SALINE 10 ML SDV (SCHEDULED) IV SCH ×2 (17:30→21:09)
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
[2019-06-01] MEDS: BUPRENORPHINE HCL 2 MG SUBLINGUAL TABLET SL SCH (21:08)
[2019-06-01] MEDS: ATORVASTATIN CALCIUM 40 MG TABLET PO SCH (21:08)
[2019-06-02 01:23] LABS: CREATINE KINASE MB 1.53 ng/mL (<4.55)
[2019-06-02 01:25] LABS: TROPONIN I 0.194 ng/mL
[2019-06-02] MEDS: KETOROLAC TROMETHAMINE INJ/PF 30 MG/1 ML SDV IV SCH ×4 (06:34→22:28)
[2019-06-02] MEDS: PROMETHAZINE HCL INJ 25 MG/1 ML VIAL IV PRN ×4 (06:35→22:40)
[2019-06-02] MEDS: PANTOPRAZOLE SODIUM 40 MG TABLET.DR PO SCH ×2 (06:35→16:16)
[2019-06-02 07:33] LABS: CREATINE KINASE MB 1.39 ng/mL (<4.55); TROPONIN I 0.171 ng/mL
--- NOTE | 2019-06-02 07:56 | EKG REPORT ---
SEVERITY:- NORMAL ECG - SINUS RHYTHM : Confirmed by: Vonda Frank 02-Jun-2019 07:55:30
[2019-06-02] MEDS: METOPROLOL SUCCINATE 50 MG TAB.SR.24H PO SCH (11:20)
[2019-06-02] MEDS: ASCORBIC ACID 500 MG TABLET PO SCH ×2 (11:20→17:44)
[2019-06-02] MEDS: FERROUS SULFATE 325 MG TABLET PO SCH ×2 (11:21→17:44)
[2019-06-02] MEDS: GABAPENTIN 300 MG CAPSULE PO SCH ×2 (11:21→17:44)
[2019-06-02] MEDS: BUPRENORPHINE HCL 2 MG SUBLINGUAL TABLET SL SCH ×2 (11:21→22:29)
[2019-06-02] MEDS: DULOXETINE HCL 20 MG CAPSULE.DR PO SCH (11:23)
[2019-06-02] MEDS: DOCUSATE SODIUM 100 MG CAPSULE PO SCH ×2 (11:23→22:26)
[2019-06-02] MEDS: LEVOFLOXACIN 750 MG/D5W RTU 750 MG/150 ML RTUPB IV SCH (11:23)
[2019-06-02] MEDS: POTASSIUM CHLORIDE 10 MEQ CAPSULE.ER PO SCH (11:24)
[2019-06-02] MEDS: FUROSEMIDE 40 MG TABLET PO SCH (11:24)
[2019-06-02] MEDS: NICOTINE 14 MG/24 HR PATCH.TD24 TD SCH (11:25)
[2019-06-02] MEDS: NORMAL SALINE 10 ML SDV (SCHEDULED) IV SCH ×2 (11:25→22:30)
[2019-06-02] MEDS ORDERED: FUROSEMIDE INJ/PF 20 MG/2 ML SDV IV ONE (14:22)
[2019-06-02] MEDS ORDERED: KETOROLAC TROMETHAMINE INJ/PF 30 MG/1 ML SDV ONE (16:12)
[2019-06-02] MEDS: CEFEPIME HCL 2 GM in DEXTROSE 5%-WATER 50 ML IV SCH (17:44)
[2019-06-02] MEDS ORDERED: KETOROLAC TROMETHAMINE INJ/PF 30 MG/1 ML SDV IV SCH (18:00)
[2019-06-02 21:40] LABS: CREATINE KINASE MB 1.68 ng/mL (<4.55); TROPONIN I 0.175 ng/mL
[2019-06-02] MEDS: ATORVASTATIN CALCIUM 40 MG TABLET PO SCH (22:29)
[2019-06-03] MEDS: KETOROLAC TROMETHAMINE INJ/PF 30 MG/1 ML SDV IV SCH ×4 (02:52→21:29)
[2019-06-03] MEDS: PROMETHAZINE HCL INJ 25 MG/1 ML VIAL IV PRN ×5 (02:59→23:36)
[2019-06-03] MEDS: CEFEPIME HCL 2 GM in DEXTROSE 5%-WATER 50 ML IV SCH ×3 (05:06→17:01)
[2019-06-03] MEDS: PANTOPRAZOLE SODIUM 40 MG TABLET.DR PO SCH ×2 (05:07→17:01)
[2019-06-03 05:11] LABS: HEMATOCRIT 21.6 % (36.0-47.0); MEAN CORPUSCULAR HEMOGLOBIN 26.4 pg (27.0-33.4); MEAN CORPUSCULAR HGB CONC 33.1 g/dL (32.0-36.0); MEAN CORPUSCULAR VOLUME 80 fl (80-97); PLATELET COUNT 402 10^3/uL (150-450); RED BLOOD COUNT 2.71 10^6/uL (3.72-5.28); RED CELL DISTRIBUTION WIDTH 17.5 % (11.5-14.0); WHITE BLOOD COUNT 10.5 10^3/uL (4.0-10.5)
[2019-06-03 05:34] LABS: ANION GAP 8 (5-19); BLOOD UREA NITROGEN 18 mg/dL (7-20); CALCIUM 8.5 mg/dL (8.4-10.2); CARBON DIOXIDE 25 mmol/L (22-30); CHLORIDE 106 mmol/L (98-107); GLUCOSE 98 mg/dL (75-110); POTASSIUM 4.7 mmol/L (3.6-5.0)
[2019-06-03 05:51] LABS: ERYTHROCYTE SEDIMENTATION RATE 67 mm/hr (0-20)
[2019-06-03 06:21] LABS: HEMOGLOBIN 7.1 g/dL (12.0-15.5)
[2019-06-03 06:25] LABS: ABSOLUTE LYMPHOCYTES# (MANUAL) 2.2 10^3/uL (0.5-4.7); ABSOLUTE MONOCYTES # (MANUAL) 0.6 10^3/uL (0.1-1.4); BASOPHILS % (MANUAL) 0 % (0-2); EOSINOPHILS % (MANUAL) 0 % (0-6); LYMPHOCYTES % (MANUAL) 21 % (13-45); MONOCYTES % (MANUAL) 6 % (3-13); SEGMENTED NEUTROPHILS % (MAN) 73 % (42-78); TOTAL CELLS COUNTED 100
[2019-06-03 06:29] LABS: ANISOCYTOSIS 1+; OVALOCYTES 1+; PLATELET COMMENT ADEQUATE; POLYCHROMASIA SLIGHT
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
[2019-06-03] MEDS: FERROUS SULFATE 325 MG TABLET PO SCH ×2 (08:55→17:01)
[2019-06-03] MEDS: ASCORBIC ACID 500 MG TABLET PO SCH ×2 (08:55→17:01)
[2019-06-03] MEDS: BUPRENORPHINE HCL 2 MG SUBLINGUAL TABLET SL SCH ×3 (10:28→21:30)
[2019-06-03] MEDS: METOPROLOL SUCCINATE 50 MG TAB.SR.24H PO SCH (10:29)
[2019-06-03] MEDS: GABAPENTIN 300 MG CAPSULE PO SCH ×2 (10:29→17:01)
[2019-06-03] MEDS: FUROSEMIDE 40 MG TABLET PO SCH (10:29)
[2019-06-03] MEDS: POTASSIUM CHLORIDE 10 MEQ CAPSULE.ER PO SCH (10:30)
[2019-06-03] MEDS: DULOXETINE HCL 20 MG CAPSULE.DR PO SCH (10:30)
[2019-06-03] MEDS: LEVOFLOXACIN 750 MG/D5W RTU 750 MG/150 ML RTUPB IV SCH (10:30)
[2019-06-03] MEDS: DOCUSATE SODIUM 100 MG CAPSULE PO SCH ×2 (10:30→17:03)
[2019-06-03] MEDS: NORMAL SALINE 10 ML SDV (SCHEDULED) IV SCH ×2 (10:34→21:31)
[2019-06-03] MEDS: NICOTINE 14 MG/24 HR PATCH.TD24 TD SCH (10:39)
--- NOTE | 2019-06-03 19:36 | PDOC PROGRESS REPORT ---
Subjective Progress Note for:: 06/03/19 Subjective:: HONEY GRESHAM is a 43 year old female with a past medical history of persistent IV drug use, endocarditis, status post tricuspid valve replacement September 2018 at [facility]. She presents with dull retrosternal chest pain which has been present since valve replacement has developed fever and some shortness of breath prompting evaluation emergency room where she is found to have sepsis with hypotension, tachycardia, leukocytosis of 19,000, hypo-natremia hypomagnesemia hypo-kalemia and thrombocytopenia. She started on IV vancomycin and Dr. Bowen hospitalist at [facility] is consulted. 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 Subsequent cultures did not grow. [facility] is currently on regional diversion and are subsequently unable to accept her for transfer. She is referred to the hospitalist for admission. Reason For Visit: IVDU,SEPSIS,ENDOCARDITIS Physical Exam Vital Signs: Temp Pulse Resp BP Pulse Ox 98.4 F 89 18 94/51 L 100 06/03/19 15:23 06/03/19 15:23 06/03/19 15:23 06/03/19 15:23 06/03/19 15:23 Intake & Output 06/02/19 06/03/19 06/04/19 06:59 06:59 06:59 Intake Total 1870 2540 500 Balance 1870 2540 500 Weight 86.3 kg 86.3 kg General appearance: PRESENT: no acute distress Neck exam: ABSENT: carotid bruit, JVD, lymphadenopathy, thyromegaly Respiratory exam: PRESENT: clear to auscultation sandrita. ABSENT: rales, rhonchi, wheezes Cardiovascular exam: PRESENT: RRR. ABSENT: diastolic murmur, rubs, systolic murmur Extremities exam: PRESENT: full ROM. ABSENT: calf tenderness, clubbing, pedal edema Neurological exam: PRESENT: alert, awake, oriented to person, oriented to place, oriented to time, oriented to situation, CN II-XII grossly intact. ABSENT: motor sensory deficit Results Laboratory Results: 06/03/19 04:40 06/03/19 04:40 06/03/19 06/03/19 04:40 04:40 WBC 10.5 RBC 2.71 L Hgb 7.1 L Hct 21.6 L MCV 80 MCH 26.4 L MCHC 33.1 RDW 17.5 H Plt Count 402 Seg Neutrophils % Not Reportable Sodium 138.5 Potassium 4.7 Chloride 106 Carbon Dioxide 25 Anion Gap 8 BUN 18 Creatinine 1.15 Est GFR ( Amer) > 60 Glucose 98 Calcium 8.5 Magnesium 1.4 L 05/21/19 05/22/19 05/22/19 23:07 02:06 11:00 Creatine Kinase CK-MB (CK-2) Troponin I 0.098 0.098 0.070 NT-Pro-B Natriuret Pep 05/22/19 05/22/19 05/22/19 14:00 14:35 20:04 Creatine Kinase CK-MB (CK-2) Troponin I Cancelled 0.060 0.037 NT-Pro-B Natriuret Pep 05/28/19 05/28/19 06/02/19 00:15 00:15 00:20 Creatine Kinase < 20 L < 20 L CK-MB (CK-2) 0.49 Troponin I 0.077 NT-Pro-B Natriuret Pep 06/02/19 06/02/19 06/02/19 00:20 06:15 06:15 Creatine Kinase < 20 L CK-MB (CK-2) 1.53 1.39 Troponin I 0.194 0.171 NT-Pro-B Natriuret Pep 06/02/19 06/02/19 13:30 13:30 Creatine Kinase < 20 L CK-MB (CK-2) 1.68 Troponin I 0.175 NT-Pro-B Natriuret Pep 4000 H Impressions: Chest X-Ray 05/21/19 23:04 IMPRESSION: 1. No acute pulmonary findings. 2. Previous sternotomy Guidance Fluoroscopy 05/22/19 00:00 IMPRESSION: SUCCESSFUL PLACEMENT OF A 5 FR DUAL LUMEN 39 CM PICC IN THE LEFT BASILIC VEIN. Interventional Vascular Procedure 05/22/19 00:00 IMPRESSION: SUCCESSFUL PLACEMENT OF A 5 FR DUAL LUMEN 39 CM PICC IN THE LEFT BASILIC VEIN. PICC Line Insertion 05/22/19 00:00 IMPRESSION: SUCCESSFUL PLACEMENT OF A 5 FR DUAL LUMEN 39 CM PICC IN THE LEFT BASILIC VEIN. Abdomen Ultrasound 05/28/19 00:00 IMPRESSION: Mild splenomegaly. No acute findings otherwise. Assessment and Plan - Diagnosis (1) Bacteremia due to Pseudomonas Is this a current diagnosis for this admission?: Yes Plan: 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 Status post tricuspid valve replacement September 2018 at [facility]. Presented to ED with dull retrosternal chest pain which has been present since valve replacement. Was a started started on IV vancomycin by Dr. Bowen hospitalist at [facility]. 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 [facility] on regional diversion at the admission time and was admitted here at [facility]. 05/21/2019. TTE LVEF 60%. No thrombus or vegetations noted. Severe tricuspid regurgitation. RSVP 48 to 53 mmHg.05/27/2019 Started on empiric broad-spectrum IV antibiotics. PICC line placed on 05/22/2018 on the left basilic vein. Multiple positive blood cultures for pseudomonas aeruginosa. Last negative blood culture 05/31/2019. Plan as per #2. (2) Endocarditis Qualifiers: Endocarditis type: infective Is this a current diagnosis for this admission?: Yes Plan: 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 Status post tricuspid valve replacement September 2018 at [facility]. Presented to ED with dull retrosternal chest pain which has been present since valve replacement. Was a started started on IV vancomycin by Dr. Bowen hospitalist at [facility]. 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 [facility] on regional diversion at the admission time and was admitted here at [facility]. 05/21/2019. TTE LVEF 60%. No thrombus or vegetations noted. Severe tricuspid regurgitation. RSVP 48 to 53 mmHg.05/27/2019 Started on empiric broad-spectrum IV antibiotics. PICC line placed on 05/22/2018 on the left basilic vein. Multiple positive blood cultures for pseudomonas aeruginosa. Last negative blood culture 05/31/2019. Last negative blood culture 05/31/2019. Day 4/36 of IV antibiotics. Day 12 IV antibiotics. Day 12 IV cefepime. Day 4 IV levofloxacin. Will obtain SANJU. Unfortunately patient drug abuse and could not be sent home on IV antibiotics. (3) IV drug abuse Is this a current diagnosis for this admission?: Yes Plan: Persistent IV drug abuse. Was a started on Subutex 05/27/2019. Was encouraged to rehab admission one day before discharge. Continue Subutex. (4) Abdominal pain Qualifiers: Abdominal location: generalized Qualified Code(s): R10.84 - Generalized abdominal pain Is this a current diagnosis for this admission?: Yes Plan: Persistent. Generalized. History of cholecystectomy. History of hepatitis C. History of hepatic steatosis. Lipase WNL. Continue beta-blockers and supportive measures.
[2019-06-03] MEDS: ATORVASTATIN CALCIUM 40 MG TABLET PO SCH (21:30)
[2019-06-04] MEDS: KETOROLAC TROMETHAMINE INJ/PF 30 MG/1 ML SDV IV SCH ×4 (03:04→20:17)
[2019-06-04] MEDS: PROMETHAZINE HCL INJ 25 MG/1 ML VIAL IV PRN ×4 (03:50→20:18)
[2019-06-04 05:59] LABS: ALBUMIN 2.9 g/dL (3.5-5.0); ALKALINE PHOSPHATASE 145 U/L (38-126); ANION GAP 10 (5-19); ASPARTATE AMINO TRANSFERASE 50 U/L (14-36); BILIRUBIN,DIRECT 0.3 mg/dL (0.0-0.4); BILIRUBIN,TOTAL 0.3 mg/dL (0.2-1.3); BLOOD UREA NITROGEN 23 mg/dL (7-20); CALCIUM 8.4 mg/dL (8.4-10.2); CARBON DIOXIDE 23 mmol/L (22-30); CHLORIDE 104 mmol/L (98-107); GLUCOSE 86 mg/dL (75-110); POTASSIUM 5.1 mmol/L (3.6-5.0); TOTAL PROTEIN 6.2 g/dL (6.3-8.2)
[2019-06-04 06:08] LABS: HEMATOCRIT 22.5 % (36.0-47.0); MEAN CORPUSCULAR HEMOGLOBIN 26.6 pg (27.0-33.4); MEAN CORPUSCULAR HGB CONC 33.2 g/dL (32.0-36.0); MEAN CORPUSCULAR VOLUME 80 fl (80-97); PLATELET COUNT 448 10^3/uL (150-450); RED BLOOD COUNT 2.81 10^6/uL (3.72-5.28); RED CELL DISTRIBUTION WIDTH 17.8 % (11.5-14.0); WHITE BLOOD COUNT 10.8 10^3/uL (4.0-10.5)
[2019-06-04] MEDS: CEFEPIME HCL 2 GM in DEXTROSE 5%-WATER 50 ML IV SCH ×2 (06:32→17:28)
[2019-06-04] MEDS: PANTOPRAZOLE SODIUM 40 MG TABLET.DR PO SCH ×2 (06:33→17:25)
[2019-06-04 06:42] LABS: HEMOGLOBIN 7.5 g/dL (12.0-15.5)
[2019-06-04 06:44] LABS: ABSOLUTE LYMPHOCYTES# (MANUAL) 2.5 10^3/uL (0.5-4.7); ABSOLUTE MONOCYTES # (MANUAL) 0.3 10^3/uL (0.1-1.4); ANISOCYTOSIS 1+; BASOPHILS % (MANUAL) 0 % (0-2); EOSINOPHILS % (MANUAL) 0 % (0-6); LYMPHOCYTES % (MANUAL) 23 % (13-45); MONOCYTES % (MANUAL) 3 % (3-13); OVALOCYTES 1+; PLATELET COMMENT ADEQUATE; SEGMENTED NEUTROPHILS % (MAN) 74 % (42-78); TOTAL CELLS COUNTED 100
[2019-06-04] MEDS: GABAPENTIN 300 MG CAPSULE PO SCH ×2 (09:47→17:25)
[2019-06-04] MEDS: LEVOFLOXACIN 750 MG/D5W RTU 750 MG/150 ML RTUPB IV SCH (09:47)
[2019-06-04] MEDS: FERROUS SULFATE 325 MG TABLET PO SCH ×2 (09:48→17:25)
[2019-06-04] MEDS: ASCORBIC ACID 500 MG TABLET PO SCH ×2 (09:48→17:25)
[2019-06-04] MEDS: FUROSEMIDE 40 MG TABLET PO SCH (09:48)
[2019-06-04] MEDS: BUPRENORPHINE HCL 2 MG SUBLINGUAL TABLET SL SCH ×2 (09:52→21:48)
[2019-06-04] MEDS: METOPROLOL SUCCINATE 50 MG TAB.SR.24H PO SCH (09:52)
[2019-06-04] MEDS: NORMAL SALINE 10 ML SDV (SCHEDULED) IV SCH ×2 (09:53→21:49)
[2019-06-04] MEDS: NICOTINE 14 MG/24 HR PATCH.TD24 TD SCH (09:54)
[2019-06-04] MEDS: DOCUSATE SODIUM 100 MG CAPSULE PO SCH ×2 (09:54→17:26)
[2019-06-04] MEDS: DULOXETINE HCL 20 MG CAPSULE.DR PO SCH (09:54)
--- NOTE | 2019-06-04 18:46 | PDOC PROGRESS REPORT ---
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 She presents with dull retrosternal chest pain which has been present since valve replacement has developed fever and some shortness of breath prompting evaluation emergency room where she is found to have sepsis with hypotension, tachycardia, leukocytosis of 19,000, hypo-natremia hypomagnesemia hypo-kalemia and thrombocytopenia. She started on IV vancomycin and Dr. Bowen hospitalist at [facility] is consulted. 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 Subsequent cultures did not grow. [facility] is currently on regional diversion and are subsequently unable to accept her for transfer. She is referred to the hospitalist for admission. 06/04/2019. No acute events overnight. Reason For Visit: IVDU,SEPSIS,ENDOCARDITIS Physical Exam Vital Signs: Temp Pulse Resp BP Pulse Ox 97 F L 82 16 98/64 L 98 06/04/19 01:37 06/04/19 14:00 06/04/19 01:37 06/04/19 17:11 06/04/19 01:37 Intake & Output 06/03/19 06/04/19 06/05/19 06:59 06:59 06:59 Intake Total 2540 820 866 Balance 2540 820 866 Weight 86.3 kg 74.8 kg General appearance: PRESENT: no acute distress, well-developed, well-nourished Head exam: PRESENT: atraumatic, normocephalic Eye exam: PRESENT: conjunctiva pink, EOMI, PERRLA. ABSENT: scleral icterus Ear exam: PRESENT: normal external ear exam Mouth exam: PRESENT: moist, tongue midline Neck exam: ABSENT: carotid bruit, JVD, lymphadenopathy, thyromegaly Respiratory exam: PRESENT: clear to auscultation sandrita. ABSENT: rales, rhonchi, wheezes Cardiovascular exam: PRESENT: RRR. ABSENT: diastolic murmur, rubs, systolic murmur Pulses: PRESENT: normal dorsalis pedis pul Vascular exam: PRESENT: normal capillary refill GI/Abdominal exam: PRESENT: normal bowel sounds, soft. ABSENT: distended, guarding, mass, organolmegaly, rebound, tenderness Rectal exam: PRESENT: deferred Extremities exam: PRESENT: full ROM. ABSENT: calf tenderness, clubbing, pedal edema Neurological exam: PRESENT: alert, awake, oriented to person, oriented to place, oriented to time, oriented to situation, CN II-XII grossly intact. ABSENT: motor sensory deficit Psychiatric exam: PRESENT: appropriate affect, normal mood. ABSENT: homicidal ideation, suicidal ideation Skin exam: PRESENT: dry, intact, warm. ABSENT: cyanosis, rash Results Laboratory Results: 06/04/19 04:00 06/04/19 04:00 06/04/19 06/04/19 06/04/19 04:00 04:00 04:00 WBC 10.8 H RBC 2.81 L Hgb 7.5 L Hct 22.5 L MCV 80 MCH 26.6 L MCHC 33.2 RDW 17.8 H Plt Count 448 Seg Neutrophils % Not Reportable Sodium 136.7 L Potassium 5.1 H Chloride 104 Carbon Dioxide 23 Anion Gap 10 BUN 23 H Creatinine 1.24 Est GFR ( Amer) 57 L Glucose 86 Calcium 8.4 Total Bilirubin 0.3 AST 50 H Alkaline Phosphatase 145 H Total Protein 6.2 L Albumin 2.9 L Lipase 57.7 05/21/19 05/22/19 05/22/19 23:07 02:06 11:00 Creatine Kinase CK-MB (CK-2) Troponin I 0.098 0.098 0.070 NT-Pro-B Natriuret Pep 05/22/19 05/22/19 05/22/19 14:00 14:35 20:04 Creatine Kinase CK-MB (CK-2) Troponin I Cancelled 0.060 0.037 NT-Pro-B Natriuret Pep 05/28/19 05/28/19 06/02/19 00:15 00:15 00:20 Creatine Kinase < 20 L < 20 L CK-MB (CK-2) 0.49 Troponin I 0.077 NT-Pro-B Natriuret Pep 06/02/19 06/02/19 06/02/19 00:20 06:15 06:15 Creatine Kinase < 20 L CK-MB (CK-2) 1.53 1.39 Troponin I 0.194 0.171 NT-Pro-B Natriuret Pep 06/02/19 06/02/19 13:30 13:30 Creatine Kinase < 20 L CK-MB (CK-2) 1.68 Troponin I 0.175 NT-Pro-B Natriuret Pep 4000 H Impressions: Chest X-Ray 05/21/19 23:04 IMPRESSION: 1. No acute pulmonary findings. 2. Previous sternotomy Guidance Fluoroscopy 05/22/19 00:00 IMPRESSION: SUCCESSFUL PLACEMENT OF A 5 FR DUAL LUMEN 39 CM PICC IN THE LEFT BASILIC VEIN. Interventional Vascular Procedure 05/22/19 00:00 IMPRESSION: SUCCESSFUL PLACEMENT OF A 5 FR DUAL LUMEN 39 CM PICC IN THE LEFT BASILIC VEIN. PICC Line Insertion 05/22/19 00:00 IMPRESSION: SUCCESSFUL PLACEMENT OF A 5 FR DUAL LUMEN 39 CM PICC IN THE LEFT BASILIC VEIN. Abdomen Ultrasound 05/28/19 00:00 IMPRESSION: Mild splenomegaly. No acute findings otherwise. Assessment and Plan - Diagnosis (1) Bacteremia due to Pseudomonas Is this a current diagnosis for this admission?: Yes Plan: 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 Status post tricuspid valve replacement September 2018 at [facility]. Presented to ED with dull retrosternal chest pain which has been present since valve replacement. Was a started started on IV vancomycin by Dr. Bowen hospitalist at [facility]. 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 [facility] on regional diversion at the admission time and was admitted here at [facility]. 05/21/2019. TTE LVEF 60%. No thrombus or vegetations noted. Severe tricuspid regurgitation. RSVP 48 to 53 mmHg.05/27/2019 Started on empiric broad-spectrum IV antibiotics. PICC line placed on 05/22/2018 on the left basilic vein. Multiple positive blood cultures for pseudomonas aeruginosa. Last negative blood culture 05/31/2019. Plan as per #2. (2) Endocarditis Qualifiers: Endocarditis type: infective Is this a current diagnosis for this admission?: Yes Plan: 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 Status post tricuspid valve replacement September 2018 at [facility]. Presented to ED with dull retrosternal chest pain which has been present since valve replacement. Was a started started on IV vancomycin by Dr. Bowen hospitalist at [facility]. 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 [facility] on regional diversion at the admission time and was admitted here at [facility]. 05/21/2019. TTE LVEF 60%. No thrombus or vegetations noted. Severe tricuspid regurgitation. RSVP 48 to 53 mmHg.05/27/2019 Started on empiric broad-spectrum IV antibiotics. PICC line placed on 05/22/2018 on the left basilic vein. Multiple positive blood cultures for pseudomonas aeruginosa. Last negative blood culture 05/31/2019. Last negative blood culture 05/31/2019. Day 13 IV antibiotics. Day 5/56 of IV antibiotics. Day 12 IV cefepime. Day 5 IV levofloxacin. Will obtain SANJU. Unfortunately patient drug abuse and could not be sent home on IV antibiotics. (3) IV drug abuse Is this a current diagnosis for this admission?: Yes Plan: Persistent IV drug abuse. Was a started on Subutex 05/27/2019. Was encouraged to rehab admission one day before discharge. Continue Subutex. (4) Abdominal pain Qualifiers: Abdominal location: generalized Qualified Code(s): R10.84 - Generalized abdominal pain Is this a current diagnosis for this admission?: Yes Plan: Persistent. Generalized. History of cholecystectomy. History of hepatitis C. History of hepatic steatosis. Lipase WNL. Continue beta-blockers and supportive measures.
[2019-06-04] MEDS: ATORVASTATIN CALCIUM 40 MG TABLET PO SCH (21:48)
[2019-06-05] MEDS: PROMETHAZINE HCL INJ 25 MG/1 ML VIAL IV PRN ×5 (02:28→22:14)
[2019-06-05] MEDS: KETOROLAC TROMETHAMINE INJ/PF 30 MG/1 ML SDV IV SCH ×4 (02:28→22:02)
[2019-06-05] MEDS: PANTOPRAZOLE SODIUM 40 MG TABLET.DR PO SCH ×2 (05:16→17:12)
[2019-06-05] MEDS: CEFEPIME HCL 2 GM in DEXTROSE 5%-WATER 50 ML IV SCH ×2 (05:16→17:12)
[2019-06-05] MEDS: ASCORBIC ACID 500 MG TABLET PO SCH ×2 (08:31→17:12)
[2019-06-05] MEDS: FERROUS SULFATE 325 MG TABLET PO SCH ×2 (08:31→17:12)
[2019-06-05] MEDS: DOCUSATE SODIUM 100 MG CAPSULE PO SCH ×2 (09:46→17:09)
[2019-06-05] MEDS: DULOXETINE HCL 20 MG CAPSULE.DR PO SCH (09:46)
[2019-06-05] MEDS: NICOTINE 14 MG/24 HR PATCH.TD24 TD SCH (09:47)
[2019-06-05] MEDS: METOPROLOL SUCCINATE 50 MG TAB.SR.24H PO SCH (09:47)
[2019-06-05] MEDS: FUROSEMIDE 40 MG TABLET PO SCH (09:48)
[2019-06-05] MEDS: BUPRENORPHINE HCL 2 MG SUBLINGUAL TABLET SL SCH ×2 (09:48→22:02)
[2019-06-05] MEDS: GABAPENTIN 300 MG CAPSULE PO SCH ×2 (09:48→17:12)
[2019-06-05] MEDS: LEVOFLOXACIN 750 MG/D5W RTU 750 MG/150 ML RTUPB IV SCH (09:49)
[2019-06-05] MEDS: NORMAL SALINE 10 ML SDV (SCHEDULED) IV SCH ×2 (10:26→22:03)
--- NOTE | 2019-06-05 11:30 | PDOC PROGRESS REPORT ---
Subjective Progress Note for:: 06/05/19 Subjective:: HONEY GRESHAM is a 43 year old female with a past medical history of persistent IV drug use, endocarditis, status post tricuspid valve replacement September 2018 at [facility]. She presents with dull retrosternal chest pain which has been present since valve replacement has developed fever and some shortness of breath prompting evaluation emergency room where she is found to have sepsis with hypotension, tachycardia, leukocytosis of 19,000, hypo-natremia hypomagnesemia hypo-kalemia and thrombocytopenia. She started on IV vancomycin and Dr. Bowen hospitalist at [facility] is consulted. 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 Subsequent cultures did not grow. [facility] is currently on regional diversion and are subsequently unable to accept her for transfer. She is referred to the hospitalist for admission. 06/04/2019. No acute events overnight. 06/05/2017. No acute events overnight. Denies any fever, chills, nausea, vomiting, diarrhea, constipation or any urinary symptoms. Reason For Visit: IVDU,SEPSIS,ENDOCARDITIS Physical Exam Vital Signs: Temp Pulse Resp BP Pulse Ox 97.8 F 78 18 88/48 L 100 06/05/19 01:00 06/05/19 07:00 06/05/19 01:00 06/05/19 01:00 06/05/19 01:00 Intake & Output 06/04/19 06/05/19 06/06/19 06:59 06:59 06:59 Intake Total 820 2596 Balance 820 2596 Weight 74.8 kg 74.8 kg General appearance: PRESENT: no acute distress, well-developed, well-nourished Head exam: PRESENT: atraumatic, normocephalic Respiratory exam: PRESENT: clear to auscultation sandrita. ABSENT: rales, rhonchi, wheezes Cardiovascular exam: PRESENT: RRR. ABSENT: diastolic murmur, rubs, systolic murmur GI/Abdominal exam: PRESENT: normal bowel sounds, soft. ABSENT: distended, guarding, mass, organolmegaly, rebound, tenderness Neurological exam: PRESENT: alert, awake, oriented to person, oriented to place, oriented to time, oriented to situation, CN II-XII grossly intact. ABSENT: motor sensory deficit Results Laboratory Results: 06/04/19 04:00 06/04/19 04:00 05/21/19 05/22/19 05/22/19 23:07 02:06 11:00 Creatine Kinase CK-MB (CK-2) Troponin I 0.098 0.098 0.070 NT-Pro-B Natriuret Pep 05/22/19 05/22/19 05/22/19 14:00 14:35 20:04 Creatine Kinase CK-MB (CK-2) Troponin I Cancelled 0.060 0.037 NT-Pro-B Natriuret Pep 05/28/19 05/28/19 06/02/19 00:15 00:15 00:20 Creatine Kinase < 20 L < 20 L CK-MB (CK-2) 0.49 Troponin I 0.077 NT-Pro-B Natriuret Pep 06/02/19 06/02/19 06/02/19 00:20 06:15 06:15 Creatine Kinase < 20 L CK-MB (CK-2) 1.53 1.39 Troponin I 0.194 0.171 NT-Pro-B Natriuret Pep 06/02/19 06/02/19 13:30 13:30 Creatine Kinase < 20 L CK-MB (CK-2) 1.68 Troponin I 0.175 NT-Pro-B Natriuret Pep 4000 H Impressions: Chest X-Ray 05/21/19 23:04 IMPRESSION: 1. No acute pulmonary findings. 2. Previous sternotomy Guidance Fluoroscopy 05/22/19 00:00 IMPRESSION: SUCCESSFUL PLACEMENT OF A 5 FR DUAL LUMEN 39 CM PICC IN THE LEFT BASILIC VEIN. Interventional Vascular Procedure 05/22/19 00:00 IMPRESSION: SUCCESSFUL PLACEMENT OF A 5 FR DUAL LUMEN 39 CM PICC IN THE LEFT BASILIC VEIN. PICC Line Insertion 05/22/19 00:00 IMPRESSION: SUCCESSFUL PLACEMENT OF A 5 FR DUAL LUMEN 39 CM PICC IN THE LEFT BASILIC VEIN. Abdomen Ultrasound 05/28/19 00:00 IMPRESSION: Mild splenomegaly. No acute findings otherwise. Assessment and Plan - Diagnosis (1) Bacteremia due to Pseudomonas Is this a current diagnosis for this admission?: Yes Plan: 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 Status post tricuspid valve replacement September 2018 at [facility]. Presented to ED with dull retrosternal chest pain which has been present since valve replacement. Was a started started on IV vancomycin by Dr. Bowen hospitalist at [facility]. 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 [facility] on regional diversion at the admission time and was admitted here at [facility]. 05/21/2019. TTE LVEF 60%. No thrombus or vegetations noted. Severe tricuspid regurgitation. RSVP 48 to 53 mmHg.05/27/2019 Started on empiric broad-spectrum IV antibiotics. PICC line placed on 05/22/2018 on the left basilic vein. Multiple positive blood cultures for pseudomonas aeruginosa. Last negative blood culture 05/31/2019. Plan as per #2. (2) Endocarditis Qualifiers: Endocarditis type: infective Is this a current diagnosis for this admission?: Yes Plan: 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 Status post tricuspid valve replacement September 2018 at [facility]. Presented to ED with dull retrosternal chest pain which has been present since valve replacement. Was a started started on IV vancomycin by Dr. Bowen hospitalist at [facility]. 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 [facility] on regional diversion at the admission time and was admitted here at [facility]. 05/21/2019. TTE LVEF 60%. No thrombus or vegetations noted. Severe tricuspid regurgitation. RSVP 48 to 53 mmHg.05/27/2019 Started on empiric broad-spectrum IV antibiotics. PICC line placed on 05/22/2018 on the left basilic vein. Multiple positive blood cultures for pseudomonas aeruginosa. Last negative blood culture 05/31/2019. Last negative blood culture 05/31/2019. Day 14 IV antibiotics. Day 6/56 of IV antibiotics. Day 14 IV cefepime. Day 6 IV levofloxacin. I have called transfer center at [facility] for possible transfer for SANJU. Awaiting a return call. Unfortunately patient drug abuse and could not be sent home on IV antibiotics. (3) IV drug abuse Is this a current diagnosis for this admission?: Yes Plan: Persistent IV drug abuse. Was a started on Subutex 05/27/2019. Was encouraged to rehab admission one day before discharge. Continue Subutex. (4) Abdominal pain Qualifiers: Abdominal location: generalized Qualified Code(s): R10.84 - Generalized abdominal pain Is this a current diagnosis for this admission?: Yes Plan: Persistent. Generalized. History of cholecystectomy. History of hepatitis C. History of hepatic steatosis. Lipase WNL. Continue beta-blockers and supportive measures.
[2019-06-05] MEDS: ATORVASTATIN CALCIUM 40 MG TABLET PO SCH (22:02)
[2019-06-06] MEDS: PROMETHAZINE HCL INJ 25 MG/1 ML VIAL IV PRN ×5 (02:43→21:11)
[2019-06-06] MEDS: KETOROLAC TROMETHAMINE INJ/PF 30 MG/1 ML SDV IV SCH ×3 (05:16→14:53)
[2019-06-06] MEDS: CEFEPIME HCL 2 GM in DEXTROSE 5%-WATER 50 ML IV SCH ×2 (05:17→17:09)
[2019-06-06] MEDS: PANTOPRAZOLE SODIUM 40 MG TABLET.DR PO SCH ×2 (05:17→17:09)
[2019-06-06 05:55] LABS: ABSOLUTE EOSINOPHILS # (AUTO) 0.1 10^3/uL (0.0-0.6); ABSOLUTE LYMPHOCYTES (AUTO) 2.1 10^3/uL (0.5-4.7); ABSOLUTE MONOCYTES (AUTO) 0.8 10^3/uL (0.1-1.4); ABSOLUTE NEUT (AUTO) 8.2 10^3/uL (1.7-8.2); BASOPHILS % (AUTO) 0.2 % (0-2); EOSINOPHILS % (AUTO) 0.6 % (0-6); HEMATOCRIT 22.3 % (36.0-47.0); LYMPHOCYTES % (AUTO) 18.7 % (13-45); MEAN CORPUSCULAR HGB CONC 32.3 g/dL (32.0-36.0); MEAN CORPUSCULAR VOLUME 81 fl (80-97); MONOCYTES % (AUTO) 6.9 % (3-13); PLATELET COUNT 430 10^3/uL (150-450); RED BLOOD COUNT 2.77 10^6/uL (3.72-5.28); RED CELL DISTRIBUTION WIDTH 18.3 % (11.5-14.0); SEGMENTED NEUTROPHILS % (AUTO) 73.6 % (42-78); TOTAL CELLS COUNTED % (AUTO) 100 %; WHITE BLOOD COUNT 11.2 10^3/uL (4.0-10.5)
[2019-06-06 06:00] LABS: HEMOGLOBIN 7.2 g/dL (12.0-15.5)
[2019-06-06 06:14] LABS: ALBUMIN 2.8 g/dL (3.5-5.0); ALKALINE PHOSPHATASE 128 U/L (38-126); ANION GAP 9 (5-19); ASPARTATE AMINO TRANSFERASE 52 U/L (14-36); BILIRUBIN,DIRECT 0.2 mg/dL (0.0-0.4); BILIRUBIN,TOTAL 0.3 mg/dL (0.2-1.3); BLOOD UREA NITROGEN 28 mg/dL (7-20); CALCIUM 8.8 mg/dL (8.4-10.2); CARBON DIOXIDE 25 mmol/L (22-30); CHLORIDE 103 mmol/L (98-107); GLUCOSE 81 mg/dL (75-110); POTASSIUM 5.6 mmol/L (3.6-5.0)
[2019-06-06] MEDS: LEVOFLOXACIN 750 MG/D5W RTU 750 MG/150 ML RTUPB IV SCH (09:29)
[2019-06-06] MEDS: NICOTINE 14 MG/24 HR PATCH.TD24 TD SCH (09:30)
[2019-06-06] MEDS: ASCORBIC ACID 500 MG TABLET PO SCH ×2 (09:30→17:09)
[2019-06-06] MEDS: FERROUS SULFATE 325 MG TABLET PO SCH ×2 (09:30→17:09)
[2019-06-06] MEDS: FUROSEMIDE 40 MG TABLET PO SCH (09:30)
[2019-06-06] MEDS: BUPRENORPHINE HCL 2 MG SUBLINGUAL TABLET SL SCH ×2 (09:30→21:10)
[2019-06-06] MEDS: METOPROLOL SUCCINATE 50 MG TAB.SR.24H PO SCH (09:30)
[2019-06-06] MEDS: GABAPENTIN 300 MG CAPSULE PO SCH ×2 (09:30→17:09)
[2019-06-06] MEDS: NORMAL SALINE 10 ML SDV (SCHEDULED) IV SCH ×2 (09:31→21:11)
[2019-06-06] MEDS: DOCUSATE SODIUM 100 MG CAPSULE PO SCH ×2 (09:31→17:09)
[2019-06-06] MEDS: DULOXETINE HCL 20 MG CAPSULE.DR PO SCH (09:31)
[2019-06-06] MEDS: TRAMADOL HCL 50 MG TABLET PO PRN (16:02)
--- NOTE | 2019-06-06 18:26 | PDOC PROGRESS REPORT ---
Subjective Progress Note for:: 06/06/19 Subjective:: HONEY GRESHAM is a 43 year old female with a past medical history of persistent IV drug use, endocarditis, status post tricuspid valve replacement September 2018 at [facility]. She presents with dull retrosternal chest pain which has been present since valve replacement has developed fever and some shortness of breath prompting evaluation emergency room where she is found to have sepsis with hypotension, tachycardia, leukocytosis of 19,000, hypo-natremia hypomagnesemia hypo-kalemia and thrombocytopenia. She started on IV vancomycin and Dr. Bowen hospitalist at [facility] is consulted. 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 Subsequent cultures did not grow. [facility] is currently on regional diversion and are subsequently unable to accept her for transfer. She is referred to the hospitalist for admission. 06/04/2019. No acute events overnight. 06/05/2017. No acute events overnight. Denies any fever, chills, nausea, vomiting, diarrhea, constipation or any urinary symptoms. 06/06/2019. No acute events overnight. Continues to complain of chronic right upper quadrant abdominal pain. Denies any fever, chills, nausea, vomiting, diarrhea, constipation or any urinary symptoms. Patient is p.o. tolerant, ambulatory, having normal bowel and bladder movements. Reason For Visit: IVDU,SEPSIS,ENDOCARDITIS Physical Exam Vital Signs: Temp Pulse Resp BP Pulse Ox 98.5 F 105 H 17 109/56 L 100 06/06/19 17:08 06/06/19 17:08 06/06/19 17:08 06/06/19 17:08 06/06/19 17:08 Intake & Output 06/05/19 06/06/19 06/07/19 06:59 06:59 06:59 Intake Total 2596 2382 685 Balance 2596 2382 685 Weight 74.8 kg 71.6 kg General appearance: PRESENT: no acute distress, well-developed, well-nourished Head exam: PRESENT: atraumatic, normocephalic Respiratory exam: PRESENT: clear to auscultation sandrita. ABSENT: rales, rhonchi, wheezes GI/Abdominal exam: PRESENT: normal bowel sounds, soft, tenderness - Right upper quadrant.. ABSENT: distended, guarding, mass, organolmegaly, rebound Neurological exam: PRESENT: alert, awake, oriented to person, oriented to place, oriented to time, oriented to situation, CN II-XII grossly intact. ABSENT: motor sensory deficit Results Laboratory Results: 06/06/19 05:25 06/06/19 05:25 06/06/19 06/06/19 05:25 05:25 WBC 11.2 H RBC 2.77 L Hgb 7.2 L Hct 22.3 L MCV 81 MCH 26.0 L MCHC 32.3 RDW 18.3 H Plt Count 430 Seg Neutrophils % 73.6 Sodium 137.3 Potassium 5.6 H Chloride 103 Carbon Dioxide 25 Anion Gap 9 BUN 28 H Creatinine 1.33 H Est GFR ( Amer) 53 L Glucose 81 Calcium 8.8 Total Bilirubin 0.3 AST 52 H Alkaline Phosphatase 128 H Total Protein 6.0 L Albumin 2.8 L 05/21/19 05/22/19 05/22/19 23:07 02:06 11:00 Creatine Kinase CK-MB (CK-2) Troponin I 0.098 0.098 0.070 NT-Pro-B Natriuret Pep 05/22/19 05/22/19 05/22/19 14:00 14:35 20:04 Creatine Kinase CK-MB (CK-2) Troponin I Cancelled 0.060 0.037 NT-Pro-B Natriuret Pep 05/28/19 05/28/19 06/02/19 00:15 00:15 00:20 Creatine Kinase < 20 L < 20 L CK-MB (CK-2) 0.49 Troponin I 0.077 NT-Pro-B Natriuret Pep 06/02/19 06/02/19 06/02/19 00:20 06:15 06:15 Creatine Kinase < 20 L CK-MB (CK-2) 1.53 1.39 Troponin I 0.194 0.171 NT-Pro-B Natriuret Pep 06/02/19 06/02/19 13:30 13:30 Creatine Kinase < 20 L CK-MB (CK-2) 1.68 Troponin I 0.175 NT-Pro-B Natriuret Pep 4000 H Impressions: Chest X-Ray 05/21/19 23:04 IMPRESSION: 1. No acute pulmonary findings. 2. Previous sternotomy Guidance Fluoroscopy 05/22/19 00:00 IMPRESSION: SUCCESSFUL PLACEMENT OF A 5 FR DUAL LUMEN 39 CM PICC IN THE LEFT BASILIC VEIN. Interventional Vascular Procedure 05/22/19 00:00 IMPRESSION: SUCCESSFUL PLACEMENT OF A 5 FR DUAL LUMEN 39 CM PICC IN THE LEFT BASILIC VEIN. PICC Line Insertion 05/22/19 00:00 IMPRESSION: SUCCESSFUL PLACEMENT OF A 5 FR DUAL LUMEN 39 CM PICC IN THE LEFT BASILIC VEIN. Abdomen Ultrasound 05/28/19 00:00 IMPRESSION: Mild splenomegaly. No acute findings otherwise. Assessment and Plan - Diagnosis (1) Bacteremia due to Pseudomonas Is this a current diagnosis for this admission?: Yes Plan: 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 Status post tricuspid valve replacement September 2018 at [facility]. Presented to ED with dull retrosternal chest pain which has been present since valve replacement. Was a started started on IV vancomycin by Dr. Jessi andersen at [facility]. 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 [facility] on regional diversion at the admission time and was [facility] 05/21/2019. TTE LVEF 60%. No thrombus or vegetations noted. Severe tricuspid regurgitation. RSVP 48 to 53 mmHg.05/27/2019 Started on empiric broad-spectrum IV antibiotics. PICC line placed on 05/22/2018 on the left basilic vein. Multiple positive blood cultures for pseudomonas aeruginosa. Last negative blood culture 05/31/2019. Plan as per #2. (2) Endocarditis Qualifiers: Endocarditis type: infective Is this a current diagnosis for this admission?: Yes Plan: 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 Status post tricuspid valve replacement September 2018 at [facility]. Presented to ED with dull retrosternal chest pain which has been present since valve replacement. Was a started started on IV vancomycin by Dr. Bowen hospitalstephanie at [facility]. 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 [facility] on regional diversion at the admission time and was admitted here at [facility]. 05/21/2019. TTE LVEF 60%. No thrombus or vegetations noted. Severe tricuspid r egurgitation. RSVP 48 to 53 mmHg.05/27/2019 Started on empiric broad-spectrum IV antibiotics. PICC line placed on 05/22/2018 on the left basilic vein. Multiple positive blood cultures for pseudomonas aeruginosa. Last negative blood culture 05/31/2019. Last negative blood culture 05/31/2019. Day 15 IV antibiotics. Day 7/56 of IV antibiotics. Day 15 IV cefepime. Day 7 IV levofloxacin. I have called transfer center at [facility] for possible transfer for SANJU. Awaiting a return call. Unfortunately patient drug abuse and could not be sent home on IV antibiotics. (3) IV drug abuse Is this a current diagnosis for this admission?: Yes Plan: Persistent IV drug abuse. Was a started on Subutex 05/27/2019. Was encouraged to rehab admission one day before discharge. Continue Subutex. (4) Abdominal pain Qualifiers: Abdominal location: generalized Qualified Code(s): R10.84 - Generalized abdominal pain Is this a current diagnosis for this admission?: Yes Plan: Persistent. Generalized. History of cholecystectomy. History of hepatitis C. History of hepatic steatosis. Lipase WNL. Continue beta-blockers and supportive measures. Will order CT abdomen.
[2019-06-06] MEDS ORDERED: SODIUM POLYSTYRENE SULFONATE 15 GM/60 ML PO ONE ×2 (18:45→22:00)
[2019-06-06] MEDS: ATORVASTATIN CALCIUM 40 MG TABLET PO SCH (21:11)
[2019-06-07] MEDS: TRAMADOL HCL 50 MG TABLET PO PRN ×3 (00:55→20:16)
[2019-06-07] MEDS: PROMETHAZINE HCL INJ 25 MG/1 ML VIAL IV PRN ×5 (01:13→22:52)
[2019-06-07] MEDS: NORMAL SALINE 10 ML SDV (AFTER EACH USE) IV PRN ×2 (01:13→07:08)
[2019-06-07] MEDS: CEFEPIME HCL 2 GM in DEXTROSE 5%-WATER 50 ML IV SCH ×2 (06:20→17:27)
[2019-06-07] MEDS: PANTOPRAZOLE SODIUM 40 MG TABLET.DR PO SCH ×2 (06:20→17:25)
[2019-06-07 06:42] LABS: ABSOLUTE BASOPHILS # (AUTO) 0.1 10^3/uL (0.0-0.2); ABSOLUTE EOSINOPHILS # (AUTO) 0.1 10^3/uL (0.0-0.6); ABSOLUTE LYMPHOCYTES (AUTO) 2.1 10^3/uL (0.5-4.7); ABSOLUTE MONOCYTES (AUTO) 0.8 10^3/uL (0.1-1.4); ABSOLUTE NEUT (AUTO) 7.9 10^3/uL (1.7-8.2); BASOPHILS % (AUTO) 0.5 % (0-2); HEMATOCRIT 22.3 % (36.0-47.0); LYMPHOCYTES % (AUTO) 19.3 % (13-45); MEAN CORPUSCULAR HEMOGLOBIN 27.1 pg (27.0-33.4); MEAN CORPUSCULAR HGB CONC 33.7 g/dL (32.0-36.0); MEAN CORPUSCULAR VOLUME 81 fl (80-97); MONOCYTES % (AUTO) 7.2 % (3-13); PLATELET COUNT 402 10^3/uL (150-450); RED BLOOD COUNT 2.76 10^6/uL (3.72-5.28); RED CELL DISTRIBUTION WIDTH 19.2 % (11.5-14.0); TOTAL CELLS COUNTED % (AUTO) 100 %; WHITE BLOOD COUNT 10.9 10^3/uL (4.0-10.5)
[2019-06-07 06:46] LABS: HEMOGLOBIN 7.5 g/dL (12.0-15.5)
[2019-06-07 07:00] LABS: ALBUMIN 2.8 g/dL (3.5-5.0); ALKALINE PHOSPHATASE 144 U/L (38-126); ANION GAP 8 (5-19); ASPARTATE AMINO TRANSFERASE 57 U/L (14-36); BILIRUBIN,DIRECT 0.2 mg/dL (0.0-0.4); BILIRUBIN,TOTAL 0.2 mg/dL (0.2-1.3); BLOOD UREA NITROGEN 28 mg/dL (7-20); CALCIUM 8.7 mg/dL (8.4-10.2); CARBON DIOXIDE 28 mmol/L (22-30); CHLORIDE 101 mmol/L (98-107); GLUCOSE 88 mg/dL (75-110); POTASSIUM 5.1 mmol/L (3.6-5.0)
--- NOTE | 2019-06-07 08:56 | RADIOLOGY REPORT (SQ) ---
EXAM DESCRIPTION: CT ABD/PELVIS NO ORAL OR IV COMPLETED DATE/TIME: 06/06/2019 8:57 pm REASON FOR STUDY: RUQ ABDOMINAL PAIN COMPARISON: None. TECHNIQUE: CT scan of the abdomen and pelvis performed without intravenous or oral contrast. Images reviewed with lung, soft tissue, and bone windows. Reconstructed coronal and sagittal MPR images revi ewed. All images stored on PACS. All CT scanners at this facility use dose modulation, iterative reconstruction, and/or weight based d osing when appropriate to reduce radiation dose to as low as reasonably achievable (ALARA). [facility]: Dose Right [facility]: CareDose [facility]: Dose Right [facility]: Teradose 4D [facility]: [employer] RADIATION DOSE: CT Rad equipment meets quality standard of care and radiation dose reduction techniq ues were employed. CTDIvol: 13.9 mGy. DLP: 781 mGy-cm.mGy. LIMITATIONS: None. FINDINGS: LOWER CHEST: No significant findings. No nodules or infiltrates. NON-CONTRASTED LIVER, SPLEEN, ADRENALS: Evaluation limited by lack of IV contrast. No identified sign ificant masses. PANCREAS: No masses. No peripancreatic inflammatory changes. GALLBLADDER: Surgically absent. RIGHT KIDNEY AND URETER: No solid masses. No significant calcification. No hydronephrosis or hydroure ter. LEFT KIDNEY AND URETER: No solid masses. No significant calcification. No hydronephrosis or hydrouret er. AORTA AND RETROPERITONEUM: No aneurysm. No retroperitoneal masses or adenopathy. BOWEL AND PERITONEAL CAVITY: Large amount of debris in the stomach which is distended. No gross obst ructing mass. Large amount of stool in the colon consistent with constipation. Variable fluid diste nsion of small bowel loops, likely ileus. No fixed mechanical obstruction detected. No evidence of ascites or abnormal gas. APPENDIX: Normal. PELVIS, BLADDER, AND ABDOMINAL WALL:Bladder distended but otherwise normal. No suspicious pelvic mas s or fluid. BONES: No significant findings. OTHER: No other significant finding. IMPRESSION: 1. Gastric distention and debris. Ileus. Constipation. 2. Normal appendix. No acute abdominopelvic abnormality. TECHNICAL DOCUMENTATION: JOB ID: [id number] Quality ID # [id number]: Final reports with documentation of one or more dose reduction techniques (e.g., Au tomated exposure control, adjustment of the mA and/or kV according to patient size, use of iterative reconstruction technique) 2010 [employer]- All Rights Reserved Reading location - IP/workstation name: [email or web address]
[2019-06-07] MEDS: METOPROLOL SUCCINATE 50 MG TAB.SR.24H PO SCH (09:57)
[2019-06-07] MEDS: ASCORBIC ACID 500 MG TABLET PO SCH ×2 (10:03→17:25)
[2019-06-07] MEDS: FERROUS SULFATE 325 MG TABLET PO SCH ×2 (10:03→17:25)
[2019-06-07] MEDS: GABAPENTIN 300 MG CAPSULE PO SCH ×2 (10:03→17:25)
[2019-06-07] MEDS: BUPRENORPHINE HCL 2 MG SUBLINGUAL TABLET SL SCH ×2 (10:03→22:51)
[2019-06-07] MEDS: DULOXETINE HCL 20 MG CAPSULE.DR PO SCH (10:04)
[2019-06-07] MEDS: DOCUSATE SODIUM 100 MG CAPSULE PO SCH ×2 (10:04→17:20)
[2019-06-07] MEDS: NICOTINE 14 MG/24 HR PATCH.TD24 TD SCH (10:04)
[2019-06-07] MEDS: NORMAL SALINE 10 ML SDV (SCHEDULED) IV SCH ×2 (10:07→22:52)
[2019-06-07] MEDS: LEVOFLOXACIN 750 MG/D5W RTU 750 MG/150 ML RTUPB IV SCH (10:09)
[2019-06-07] MEDS: MIDODRINE HCL 5 MG TABLET PO SCH ×3 (10:17→17:25)
--- NOTE | 2019-06-07 12:57 | PDOC PROGRESS REPORT ---
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 She presents with dull retrosternal chest pain which has been present since valve replacement has developed fever and some shortness of breath prompting evaluation emergency room where she is found to have sepsis with hypotension, tachycardia, leukocytosis of 19,000, hypo-natremia hypomagnesemia hypo-kalemia and thrombocytopenia. She started on IV vancomycin and Dr. Bowen hospitalist at [facility] is consulted. 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 Subsequent cultures did not grow. [facility] is currently on regional diversion and are subsequently unable to accept her for transfer. She is referred to the hospitalist for admission. 06/04/2019. No acute events overnight. 06/05/2017. No acute events overnight. Denies any fever, chills, nausea, vomiting, diarrhea, constipation or any urinary symptoms. 06/06/2019. No acute events overnight. Continues to complain of chronic right upper quadrant abdominal pain. Denies any fever, chills, nausea, vomiting, diarrhea, constipation or any urinary symptoms. Patient is p.o. tolerant, ambulatory, having normal bowel and bladder movements. 06/07/2019. No acute events overnight. Significant improvement of abdominal pain after having a large bowel movement this morning. Patient is ambulatory, in no apparent distress, p.o. tolerant. Patient has been noted to have low blood pressure however she is asymptomatic. Reason For Visit: IVDU,SEPSIS,ENDOCARDITIS Physical Exam Vital Signs: Temp Pulse Resp BP Pulse Ox 98.6 F 92 18 81/44 L 100 06/07/19 08:40 06/07/19 08:40 06/07/19 08:40 06/07/19 08:40 06/07/19 08:40 Intake & Output 06/06/19 06/07/19 06/08/19 06:59 06:59 06:59 Intake Total 2382 2650 150 Balance 2382 2650 150 Weight 71.6 kg 73.5 kg Results Laboratory Results: 06/07/19 06:15 06/07/19 06:15 06/07/19 06/07/19 06:15 06:15 WBC 10.9 H RBC 2.76 L Hgb 7.5 L Hct 22.3 L MCV 81 MCH 27.1 MCHC 33.7 RDW 19.2 H Plt Count 402 Seg Neutrophils % 72.0 Sodium 137.1 Potassium 5.1 H Chloride 101 Carbon Dioxide 28 Anion Gap 8 BUN 28 H Creatinine 1.11 Est GFR ( Amer) > 60 Glucose 88 Calcium 8.7 Total Bilirubin 0.2 AST 57 H Alkaline Phosphatase 144 H Total Protein 6.0 L Albumin 2.8 L 05/21/19 05/22/19 05/22/19 23:07 02:06 11:00 Creatine Kinase CK-MB (CK-2) Troponin I 0.098 0.098 0.070 NT-Pro-B Natriuret Pep 05/22/19 05/22/19 05/22/19 14:00 14:35 20:04 Creatine Kinase CK-MB (CK-2) Troponin I Cancelled 0.060 0.037 NT-Pro-B Natriuret Pep 05/28/19 05/28/19 06/02/19 00:15 00:15 00:20 Creatine Kinase < 20 L < 20 L CK-MB (CK-2) 0.49 Troponin I 0.077 NT-Pro-B Natriuret Pep 06/02/19 06/02/19 06/02/19 00:20 06:15 06:15 Creatine Kinase < 20 L CK-MB (CK-2) 1.53 1.39 Troponin I 0.194 0.171 NT-Pro-B Natriuret Pep 06/02/19 06/02/19 13:30 13:30 Creatine Kinase < 20 L CK-MB (CK-2) 1.68 Troponin I 0.175 NT-Pro-B Natriuret Pep 4000 H Impressions: Chest X-Ray 05/21/19 23:04 IMPRESSION: 1. No acute pulmonary findings. 2. Previous sternotomy Guidance Fluoroscopy 05/22/19 00:00 IMPRESSION: SUCCESSFUL PLACEMENT OF A 5 FR DUAL LUMEN 39 CM PICC IN THE LEFT BASILIC VEIN. Interventional Vascular Procedure 05/22/19 00:00 IMPRESSION: SUCCESSFUL PLACEMENT OF A 5 FR DUAL LUMEN 39 CM PICC IN THE LEFT BASILIC VEIN. PICC Line Insertion 05/22/19 00:00 IMPRESSION: SUCCESSFUL PLACEMENT OF A 5 FR DUAL LUMEN 39 CM PICC IN THE LEFT BASILIC VEIN. Abdomen Ultrasound 05/28/19 00:00 IMPRESSION: Mild splenomegaly. No acute findings otherwise. Abdomen/Pelvis CT 06/06/19 00:00 IMPRESSION: 1. Gastric distention and debris. Ileus. Constipation. 2. Normal appendix. No acute abdominopelvic abnormality. Assessment and Plan - Diagnosis (1) Bacteremia due to Pseudomonas Is this a current diagnosis for this admission?: Yes Plan: 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 Status post tricuspid valve replacement September 2018 at [facility]. Presented to ED with dull retrosternal chest pain which has been present since valve replacement. Was a started started on IV vancomycin by Dr. Bowen hospitalist at [facility]. 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 [facility] on regional diversion at the admission time and was admitted here at [facility]. 05/21/2019. TTE LVEF 60%. No thrombus or vegetations noted. Severe tricuspid regurgitation. RSVP 48 to 53 mmHg.05/27/2019 Started on empiric broad-spectrum IV antibiotics. PICC line placed on 05/22/2018 on the left basilic vein. Multiple positive blood cultures for pseudomonas aeruginosa. Last negative blood culture 05/31/2019. Plan as per #2. (2) Endocarditis Qualifiers: Endocarditis type: infective Is this a current diagnosis for this admission?: Yes Plan: 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 Status post tricuspid valve replacement September 2018 at [facility]. Presented to ED with dull retrosternal chest pain which has been present since valve replacement. Was a started started on IV vancomycin by Dr. Bowen hospitalist at [facility]. 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 [facility] on regional diversion at the admission time and was admitted here at [facility]. 05/21/2019. TTE LVEF 60%. No thrombus or vegetations noted. Severe tricuspid regurgitation. RSVP 48 to 53 mmHg.05/27/2019 Started on empiric broad-spectrum IV antibiotics. PICC line placed on 05/22/2018 on the left basilic vein. Multiple positive blood cultures for pseudomonas aeruginosa. Last negative blood culture 05/31/2019. Last negative blood culture 05/31/2019. Day 16 IV antibiotics. Day 8/56 of IV antibiotics. Day 16 IV cefepime. Day 8 IV levofloxacin. I have called transfer center at [facility] for possible transfer for SANJU. Awaiting a return call. Unfortunately patient drug abuse and could not be sent home on IV antibiotics. (3) IV drug abuse Is this a current diagnosis for this admission?: Yes Plan: Persistent IV drug abuse. Was a started on Subutex 05/27/2019. Was encouraged to rehab admission one day before discharge. Continue Subutex. (4) Abdominal pain Qualifiers: Abdominal location: generalized Qualified Code(s): R10.84 - Generalized abdominal pain Is this a current diagnosis for this admission?: Yes Plan: Significant improvement. CT abdomen pelvis no acute findings for severe constipation. History of cholecystectomy. History of hepatitis C. History of hepatic steatosis. Lipase WNL. Continue beta-blockers and supportive measures. Continue bowel regimen. Encourage ambulation and high-fiber diet.
[2019-06-07] MEDS: METOPROLOL TARTRATE 25 MG TABLET PO SCH (22:51)
[2019-06-07] MEDS: ATORVASTATIN CALCIUM 40 MG TABLET PO SCH (22:51)
[2019-06-08] MEDS: PROMETHAZINE HCL INJ 25 MG/1 ML VIAL IV PRN ×5 (03:06→22:01)
[2019-06-08] MEDS: NORMAL SALINE 10 ML SDV (AFTER EACH USE) IV PRN ×4 (03:06→23:50)
[2019-06-08] MEDS: CEFEPIME HCL 2 GM in DEXTROSE 5%-WATER 50 ML IV SCH ×2 (05:45→17:51)
[2019-06-08] MEDS: TRAMADOL HCL 50 MG TABLET PO PRN ×2 (05:46→15:58)
[2019-06-08] MEDS: PANTOPRAZOLE SODIUM 40 MG TABLET.DR PO SCH ×2 (05:46→16:02)
[2019-06-08] MEDS: METOPROLOL TARTRATE 25 MG TABLET PO SCH ×2 (09:45→22:01)
[2019-06-08] MEDS: FERROUS SULFATE 325 MG TABLET PO SCH ×2 (09:45→17:52)
[2019-06-08] MEDS: ASCORBIC ACID 500 MG TABLET PO SCH ×2 (09:45→17:52)
[2019-06-08] MEDS: GABAPENTIN 300 MG CAPSULE PO SCH ×2 (09:45→17:52)
[2019-06-08] MEDS: MIDODRINE HCL 5 MG TABLET PO SCH ×3 (09:46→17:52)
[2019-06-08] MEDS: LEVOFLOXACIN 750 MG TABLET PO SCH (09:46)
[2019-06-08] MEDS: BUPRENORPHINE HCL 2 MG SUBLINGUAL TABLET SL SCH ×2 (09:46→22:01)
[2019-06-08] MEDS: NICOTINE 14 MG/24 HR PATCH.TD24 TD SCH (09:46)
[2019-06-08] MEDS: DULOXETINE HCL 20 MG CAPSULE.DR PO SCH (09:46)
[2019-06-08] MEDS: DOCUSATE SODIUM 100 MG CAPSULE PO SCH ×2 (09:47→17:37)
[2019-06-08] MEDS: NORMAL SALINE 10 ML SDV (SCHEDULED) IV SCH ×2 (09:47→22:01)
[2019-06-08 10:27] LABS: ABSOLUTE BASOPHILS # (AUTO) 0.1 10^3/uL (0.0-0.2); ABSOLUTE EOSINOPHILS # (AUTO) 0.1 10^3/uL (0.0-0.6); ABSOLUTE LYMPHOCYTES (AUTO) 1.9 10^3/uL (0.5-4.7); ABSOLUTE MONOCYTES (AUTO) 0.8 10^3/uL (0.1-1.4); ABSOLUTE NEUT (AUTO) 7.4 10^3/uL (1.7-8.2); BASOPHILS % (AUTO) 0.5 % (0-2); EOSINOPHILS % (AUTO) 0.9 % (0-6); HEMATOCRIT 23.1 % (36.0-47.0); LYMPHOCYTES % (AUTO) 18.5 % (13-45); MEAN CORPUSCULAR HGB CONC 33.2 g/dL (32.0-36.0); MEAN CORPUSCULAR VOLUME 81 fl (80-97); MONOCYTES % (AUTO) 8.3 % (3-13); PLATELET COUNT 385 10^3/uL (150-450); RED BLOOD COUNT 2.85 10^6/uL (3.72-5.28); RED CELL DISTRIBUTION WIDTH 19.9 % (11.5-14.0); SEGMENTED NEUTROPHILS % (AUTO) 71.8 % (42-78); TOTAL CELLS COUNTED % (AUTO) 100 %; WHITE BLOOD COUNT 10.2 10^3/uL (4.0-10.5)
[2019-06-08 10:43] LABS: ALBUMIN 3.1 g/dL (3.5-5.0); ALKALINE PHOSPHATASE 146 U/L (38-126); ANION GAP 7 (5-19); ASPARTATE AMINO TRANSFERASE 69 U/L (14-36); BILIRUBIN,DIRECT 0.3 mg/dL (0.0-0.4); BILIRUBIN,TOTAL 0.3 mg/dL (0.2-1.3); BLOOD UREA NITROGEN 27 mg/dL (7-20); CALCIUM 8.9 mg/dL (8.4-10.2); CARBON DIOXIDE 28 mmol/L (22-30); CHLORIDE 101 mmol/L (98-107); GLUCOSE 96 mg/dL (75-110); TOTAL PROTEIN 6.4 g/dL (6.3-8.2)
[2019-06-08 11:03] LABS: HEMOGLOBIN 7.7 g/dL (12.0-15.5)
[2019-06-08] MEDS ORDERED: NORMAL SALINE 250 ML IV PRN ×2 (11:38)
--- NOTE | 2019-06-08 12:27 | PDOC PROGRESS REPORT ---
Subjective Progress Note for:: 06/08/19 Subjective:: HONEY GRESHAM is a 43 year old female with a past medical history of persistent IV drug use, endocarditis, status post tricuspid valve replacement September 2018 at [facility]. She presents with dull retrosternal chest pain which has been present since valve replacement has developed fever and some shortness of breath prompting evaluation emergency room where she is found to have sepsis with hypotension, tachycardia, leukocytosis of 19,000, hypo-natremia hypomagnesemia hypo-kalemia and thrombocytopenia. She started on IV vancomycin and Dr. Bowen hospitalist at [facility] is consulted. 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 Subsequent cultures did not grow. [facility] is currently on regional diversion and are subsequently unable to accept her for transfer. She is referred to the hospitalist for admission. 06/04/2019. No acute events overnight. 06/05/2017. No acute events overnight. Denies any fever, chills, nausea, vomiting, diarrhea, constipation or any urinary symptoms. 06/06/2019. No acute events overnight. Continues to complain of chronic right upper quadrant abdominal pain. Denies any fever, chills, nausea, vomiting, diarrhea, constipation or any urinary symptoms. Patient is p.o. tolerant, ambulatory, having normal bowel and bladder movements. 06/07/2019. No acute events overnight. Significant improvement of abdominal pain after having a large bowel movement this morning. Patient is ambulatory, in no apparent distress, p.o. tolerant. Patient has been noted to have low blood pressure however she is asymptomatic. 06/08/2019. No acute events overnight, patient is comfortably sitting in bed, in no apparent distress, abdominal pain has improved significantly, ambulatory, p. o. tolerant, having normal bowel bladder movement, denies any fever, chills, nausea, vomiting, diarrhea, constipation or any urinary symptoms. Patient hemoglobin is 7.7 today denies any hematemesis, hemoptysis, melena, vaginal bleeding or any hematochezia. Stool guaiac has been negative. We will give 2 PRBC today. Reason For Visit: IVDU,SEPSIS,ENDOCARDITIS Physical Exam Vital Signs: Temp Pulse Resp BP Pulse Ox 98.7 F 88 16 90/60 L 96 06/08/19 05:00 06/08/19 07:00 06/08/19 05:00 06/08/19 05:00 06/08/19 05:00 Intake & Output 06/07/19 06/08/19 06/09/19 06:59 06:59 06:59 Intake Total 2650 2438 Balance 2650 2438 Weight 73.5 kg 73.5 kg General appearance: PRESENT: no acute distress, well-developed, well-nourished Respiratory exam: PRESENT: clear to auscultation sandrita. ABSENT: rales, rhonchi, wheezes Cardiovascular exam: PRESENT: RRR, systolic murmur. ABSENT: rubs GI/Abdominal exam: PRESENT: normal bowel sounds, soft. ABSENT: distended, guarding, mass, organolmegaly, rebound, tenderness Neurological exam: PRESENT: alert, awake, oriented to person, oriented to place, oriented to time, oriented to situation, CN II-XII grossly intact. ABSENT: motor sensory deficit Results Laboratory Results: 06/08/19 10:00 06/08/19 10:00 06/08/19 06/08/19 10:00 10:00 WBC 10.2 RBC 2.85 L Hgb 7.7 L Hct 23.1 L MCV 81 MCH 27.0 MCHC 33.2 RDW 19.9 H Plt Count 385 Seg Neutrophils % 71.8 Sodium 136.1 L Potassium 5.0 Chloride 101 Carbon Dioxide 28 Anion Gap 7 BUN 27 H Creatinine 1.01 Est GFR ( Amer) > 60 Glucose 96 Calcium 8.9 Total Bilirubin 0.3 AST 69 H Alkaline Phosphatase 146 H Total Protein 6.4 Albumin 3.1 L 06/03/19 08:45 Blood Blood Culture - Final NO GROWTH IN 5 DAYS 06/03/19 04:40 Blood Blood Culture - Final NO GROWTH IN 5 DAYS 05/21/19 05/22/19 05/22/19 23:07 02:06 11:00 Creatine Kinase CK-MB (CK-2) Troponin I 0.098 0.098 0.070 NT-Pro-B Natriuret Pep 05/22/19 05/22/19 05/22/19 14:00 14:35 20:04 Creatine Kinase CK-MB (CK-2) Troponin I Cancelled 0.060 0.037 NT-Pro-B Natriuret Pep 05/28/19 05/28/19 06/02/19 00:15 00:15 00:20 Creatine Kinase < 20 L < 20 L CK-MB (CK-2) 0.49 Troponin I 0.077 NT-Pro-B Natriuret Pep 06/02/19 06/02/19 06/02/19 00:20 06:15 06:15 Creatine Kinase < 20 L CK-MB (CK-2) 1.53 1.39 Troponin I 0.194 0.171 NT-Pro-B Natriuret Pep 06/02/19 06/02/19 13:30 13:30 Creatine Kinase < 20 L CK-MB (CK-2) 1.68 Troponin I 0.175 NT-Pro-B Natriuret Pep 4000 H Impressions: Chest X-Ray 05/21/19 23:04 IMPRESSION: 1. No acute pulmonary findings. 2. Previous sternotomy Guidance Fluoroscopy 05/22/19 00:00 IMPRESSION: SUCCESSFUL PLACEMENT OF A 5 FR DUAL LUMEN 39 CM PICC IN THE LEFT BASILIC VEIN. Interventional Vascular Procedure 05/22/19 00:00 IMPRESSION: SUCCESSFUL PLACEMENT OF A 5 FR DUAL LUMEN 39 CM PICC IN THE LEFT BASILIC VEIN. PICC Line Insertion 05/22/19 00:00 IMPRESSION: SUCCESSFUL PLACEMENT OF A 5 FR DUAL LUMEN 39 CM PICC IN THE LEFT BASILIC VEIN. Abdomen Ultrasound 05/28/19 00:00 IMPRESSION: Mild splenomegaly. No acute findings otherwise. Abdomen/Pelvis CT 06/06/19 00:00 IMPRESSION: 1. Gastric distention and debris. Ileus. Constipation. 2. Normal appendix. No acute abdominopelvic abnormality. Assessment and Plan - Diagnosis (1) Endocarditis Qualifiers: Endocarditis type: infective Is this a current diagnosis for this admission?: Yes Plan: 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 Status post tricuspid valve replacement September 2018 at [facility]. 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 Presented to ED with dull retrosternal chest pain which has been present since valve replacement. Was a started started on IV vancomycin by Dr. Bowen hospitalist at [facility]. 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 [facility] on regional diversion at the admission time and was admitted here at [facility]. 05/21/2019. TTE LVEF 60%. No thrombus or vegetations noted. Severe tricuspid regurgitation. RSVP 48 to 53 mmHg.05/27/2019 Started on empiric broad-spectrum IV antibiotics. PICC line placed on 05/22/2018 on the left basilic vein. Multiple positive blood cultures for pseudomonas aeruginosa. Last negative blood culture 05/31/2019. Last negative blood culture 05/31/2019. Day 17 IV antibiotics. Day 9 of IV antibiotics. Day 17 IV cefepime. Day 9 IV levofloxacin. I have called transfer center at [facility] for possible transfer for SANJU. Not received a call back. Will call again tomorrow. We will also consult infectious disease specialist for further recommendation. Unfortunately patient has a drug abuse and could not be sent home on IV antibiot ics. 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 Status post tricuspid valve replacement September 2018 at [facility]. Presented to ED with dull retrosternal chest pain which has been present since valve replacement. Was a started started on IV vancomycin by Dr. Bowen hospitalist at [facility]. 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 [facility] on regional diversion at the admission time and was admitted here at [facility]. 05/21/2019. TTE LVEF 60%. No thrombus or vegetations noted. Severe tricuspid regurgitation. RSVP 48 to 53 mmHg.05/27/2019 Started on empiric broad-spectrum IV antibiotics. PICC line placed on 05/22/2018 on the left basilic vein. Multiple positive blood cultures for pseudomonas aeruginosa. Last negative blood culture 05/31/2019. Plan as per #1 (3) IV drug abuse Is this a current diagnosis for this admission?: Yes Plan: Persistent IV drug abuse. Was a started on Subutex 05/27/2019. Was encouraged to rehab admission one day before discharge. Continue Subutex. (4) Abdominal pain Qualifiers: Abdominal location: generalized Qualified Code(s): R10.84 - Generalized abdominal pain Is this a current diagnosis for this admission?: Yes Plan: Significant improvement. CT abdomen pelvis no acute findings for severe constipation. History of cholecystectomy. History of hepatitis C. History of hepatic steatosis. Lipase WNL. Continue beta-blockers and supportive measures. Continue bowel regimen. Encourage ambulation and high-fiber diet. (5) Anemia Qualifiers: Anemia type: iron deficiency Iron deficiency anemia type: unspecified iron deficiency Qualified Code(s): D50.9 - Iron deficiency anemia, unspecified Is this a current diagnosis for this admission?: Yes Plan: Microcytic. Likely combination of anemia of chronic disease and iron deficiency anemia. Hemoglobin is 7.7 today. Patient does complain of easy fatigability. Has any easy bleeding, nosebleeds, hematemesis, hemoptysis, hematochezia, vaginal bleeding or melena. 05/30/2019. Iron panel. Serum iron 18.8, TIBC 270, saturation 7%, ferritin 213, folate 5.53, B12 folate 306, 06/08/2019. Status post 2 PRBC transfusion. Daily H&H, monitor for bleeding, supportive transfusions, ferrous sulfate.
[2019-06-08] MEDS: ATORVASTATIN CALCIUM 40 MG TABLET PO SCH (22:01)
[2019-06-09 00:23] LABS: ABSOLUTE BASOPHILS # (AUTO) 0.1 10^3/uL (0.0-0.2); ABSOLUTE EOSINOPHILS # (AUTO) 0.1 10^3/uL (0.0-0.6); ABSOLUTE LYMPHOCYTES (AUTO) 2.1 10^3/uL (0.5-4.7); ABSOLUTE MONOCYTES (AUTO) 1.1 10^3/uL (0.1-1.4); ABSOLUTE NEUT (AUTO) 7.8 10^3/uL (1.7-8.2); BASOPHILS % (AUTO) 0.6 % (0-2); EOSINOPHILS % (AUTO) 1.2 % (0-6); HEMATOCRIT 30.1 % (36.0-47.0); LYMPHOCYTES % (AUTO) 19.1 % (13-45); MEAN CORPUSCULAR HGB CONC 32.8 g/dL (32.0-36.0); MEAN CORPUSCULAR VOLUME 82 fl (80-97); MONOCYTES % (AUTO) 9.5 % (3-13); PLATELET COUNT 356 10^3/uL (150-450); RED BLOOD COUNT 3.66 10^6/uL (3.72-5.28); RED CELL DISTRIBUTION WIDTH 18.6 % (11.5-14.0); SEGMENTED NEUTROPHILS % (AUTO) 69.6 % (42-78); TOTAL CELLS COUNTED % (AUTO) 100 %; WHITE BLOOD COUNT 11.2 10^3/uL (4.0-10.5)
[2019-06-09 00:25] LABS: HEMOGLOBIN 9.9 g/dL (12.0-15.5)
[2019-06-09] MEDS: PROMETHAZINE HCL INJ 25 MG/1 ML VIAL IV PRN ×4 (05:15→23:08)
[2019-06-09] MEDS: PANTOPRAZOLE SODIUM 40 MG TABLET.DR PO SCH ×2 (05:15→18:26)
[2019-06-09] MEDS: LEVOFLOXACIN 750 MG TABLET PO SCH (05:15)
[2019-06-09] MEDS: CEFEPIME HCL 2 GM in DEXTROSE 5%-WATER 50 ML IV SCH ×2 (05:15→18:26)
[2019-06-09 06:11] LABS: ABSOLUTE BASOPHILS # (AUTO) 0.1 10^3/uL (0.0-0.2); ABSOLUTE EOSINOPHILS # (AUTO) 0.1 10^3/uL (0.0-0.6); ABSOLUTE MONOCYTES (AUTO) 0.9 10^3/uL (0.1-1.4); BASOPHILS % (AUTO) 0.6 % (0-2); HEMATOCRIT 30.3 % (36.0-47.0); HEMOGLOBIN 10.1 g/dL (12.0-15.5); LYMPHOCYTES % (AUTO) 18.2 % (13-45); MEAN CORPUSCULAR HEMOGLOBIN 27.2 pg (27.0-33.4); MEAN CORPUSCULAR HGB CONC 33.2 g/dL (32.0-36.0); MEAN CORPUSCULAR VOLUME 82 fl (80-97); MONOCYTES % (AUTO) 7.8 % (3-13); PLATELET COUNT 337 10^3/uL (150-450); RED CELL DISTRIBUTION WIDTH 18.7 % (11.5-14.0); SEGMENTED NEUTROPHILS % (AUTO) 72.4 % (42-78); TOTAL CELLS COUNTED % (AUTO) 100 %; WHITE BLOOD COUNT 11.1 10^3/uL (4.0-10.5)
[2019-06-09] MEDS: NORMAL SALINE 10 ML SDV (AFTER EACH USE) IV PRN (06:11)
[2019-06-09] MEDS: TRAMADOL HCL 50 MG TABLET PO PRN ×3 (06:11→23:08)
[2019-06-09 06:34] LABS: ALBUMIN 3.3 g/dL (3.5-5.0); ALKALINE PHOSPHATASE 147 U/L (38-126); ANION GAP 11 (5-19); ASPARTATE AMINO TRANSFERASE 81 U/L (14-36); BILIRUBIN,DIRECT 0.3 mg/dL (0.0-0.4); BILIRUBIN,TOTAL 0.5 mg/dL (0.2-1.3); BLOOD UREA NITROGEN 27 mg/dL (7-20); CALCIUM 9.1 mg/dL (8.4-10.2); CARBON DIOXIDE 25 mmol/L (22-30); CHLORIDE 102 mmol/L (98-107); GLUCOSE 106 mg/dL (75-110); POTASSIUM 4.9 mmol/L (3.6-5.0); TOTAL PROTEIN 6.7 g/dL (6.3-8.2)
[2019-06-09] MEDS: DULOXETINE HCL 20 MG CAPSULE.DR PO SCH (09:33)
[2019-06-09] MEDS: FERROUS SULFATE 325 MG TABLET PO SCH ×2 (09:33→18:26)
[2019-06-09] MEDS: ASCORBIC ACID 500 MG TABLET PO SCH ×2 (09:33→18:26)
[2019-06-09] MEDS: DOCUSATE SODIUM 100 MG CAPSULE PO SCH ×2 (09:33→18:46)
[2019-06-09] MEDS: METOPROLOL TARTRATE 25 MG TABLET PO SCH ×2 (09:34→21:53)
[2019-06-09] MEDS: NICOTINE 14 MG/24 HR PATCH.TD24 TD SCH (09:35)
[2019-06-09] MEDS: NORMAL SALINE 10 ML SDV (SCHEDULED) IV SCH ×2 (09:35→21:54)
[2019-06-09] MEDS: GABAPENTIN 300 MG CAPSULE PO SCH ×2 (09:35→18:26)
[2019-06-09] MEDS: MIDODRINE HCL 5 MG TABLET PO SCH ×3 (09:36→18:47)
[2019-06-09] MEDS: BUPRENORPHINE HCL 2 MG SUBLINGUAL TABLET SL SCH ×2 (09:37→21:54)
--- NOTE | 2019-06-09 15:52 | PDOC PROGRESS REPORT ---
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 She presents with dull retrosternal chest pain which has been present since valve replacement has developed fever and some shortness of breath prompting evaluation emergency room where she is found to have sepsis with hypotension, tachycardia, leukocytosis of 19,000, hypo-natremia hypomagnesemia hypo-kalemia and thrombocytopenia. She started on IV vancomycin and Dr. Bowen hospitalist at [facility] is consulted. 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 Subsequent cultures did not grow. [facility] is currently on regional diversion and are subsequently unable to accept her for transfer. She is referred to the hospitalist for admission. 06/04/2019. No acute events overnight. 06/05/2017. No acute events overnight. Denies any fever, chills, nausea, vomiting, diarrhea, constipation or any urinary symptoms. 06/06/2019. No acute events overnight. Continues to complain of chronic right upper quadrant abdominal pain. Denies any fever, chills, nausea, vomiting, diarrhea, constipation or any urinary symptoms. Patient is p.o. tolerant, ambulatory, having normal bowel and bladder movements. 06/07/2019. No acute events overnight. Significant improvement of abdominal pain after having a large bowel movement this morning. Patient is ambulatory, in no apparent distress, p.o. tolerant. Patient has been noted to have low blood pressure however she is asymptomatic. 06/08/2019. No acute events overnight, patient is comfortably sitting in bed, in no apparent distress, abdominal pain has improved significantly, ambulatory, p. o. tolerant, having normal bowel bladder movement, denies any fever, chills, nausea, vomiting, diarrhea, constipation or any urinary symptoms. Patient hemoglobin is 7.7 today denies any hematemesis, hemoptysis, melena, vaginal bleeding or any hematochezia. Stool guaiac has been negative. We will give 2 PRBC today. 06/09/2019. No acute events overnight. Comfortably sitting in bed enjoying her breakfast. In no apparent distress. Abdominal pain has resolved, ambulatory, having normal bladder and bowel movement. Denies any fever, chills, nausea, vomiting, diarrhea, constipation or any urinary symptoms. Reason For Visit: IVDU,SEPSIS,ENDOCARDITIS Physical Exam Vital Signs: Temp Pulse Resp BP Pulse Ox 97.9 F 78 12 117/72 99 06/09/19 08:32 06/09/19 08:32 06/09/19 08:32 06/09/19 08:32 06/09/19 03:37 Intake & Output 06/08/19 06/09/19 06/10/19 06:59 06:59 06:59 Intake Total 2438 2245 Balance 2438 2245 Weight 73.5 kg 71.9 kg General appearance: PRESENT: no acute distress, well-developed, well-nourished Head exam: PRESENT: atraumatic, normocephalic Respiratory exam: PRESENT: clear to auscultation sandrita. ABSENT: rales, rhonchi, wheezes Cardiovascular exam: PRESENT: systolic murmur GI/Abdominal exam: PRESENT: normal bowel sounds, soft. ABSENT: distended, guarding, mass, organolmegaly, rebound, tenderness Extremities exam: PRESENT: full ROM. ABSENT: calf tenderness, clubbing, pedal edema Neurological exam: PRESENT: alert, awake, oriented to person, oriented to place, oriented to time, oriented to situation, CN II-XII grossly intact. ABSENT: motor sensory deficit Results Laboratory Results: 06/09/19 05:10 06/09/19 05:10 06/08/19 06/08/19 06/09/19 12:10 23:38 05:10 WBC 11.2 H 11.1 H RBC 3.66 L 3.70 L Hgb 9.9 L D 10.1 L Hct 30.1 L 30.3 L MCV 82 82 MCH 27.0 27.2 MCHC 32.8 33.2 RDW 18.6 H 18.7 H Plt Count 356 337 Seg Neutrophils % 69.6 72.4 Sodium Potassium Chloride Carbon Dioxide Anion Gap BUN Creatinine Est GFR ( Amer) Glucose Calcium Total Bilirubin AST Alkaline Phosphatase Total Protein Albumin Blood Type O POSITIVE Antibody Screen NEGATIVE 06/09/19 05:10 WBC RBC Hgb Hct MCV MCH MCHC RDW Plt Count Seg Neutrophils % Sodium 137.9 Potassium 4.9 Chloride 102 Carbon Dioxide 25 Anion Gap 11 BUN 27 H Creatinine 0.97 Est GFR ( Amer) > 60 Glucose 106 Calcium 9.1 Total Bilirubin 0.5 AST 81 H Alkaline Phosphatase 147 H Total Protein 6.7 Albumin 3.3 L Blood Type Antibody Screen 05/21/19 05/22/19 05/22/19 23:07 02:06 11:00 Creatine Kinase CK-MB (CK-2) Troponin I 0.098 0.098 0.070 NT-Pro-B Natriuret Pep 05/22/19 05/22/19 05/22/19 14:00 14:35 20:04 Creatine Kinase CK-MB (CK-2) Troponin I Cancelled 0.060 0.037 NT-Pro-B Natriuret Pep 05/28/19 05/28/19 06/02/19 00:15 00:15 00:20 Creatine Kinase < 20 L < 20 L CK-MB (CK-2) 0.49 Troponin I 0.077 NT-Pro-B Natriuret Pep 06/02/19 06/02/19 06/02/19 00:20 06:15 06:15 Creatine Kinase < 20 L CK-MB (CK-2) 1.53 1.39 Troponin I 0.194 0.171 NT-Pro-B Natriuret Pep 06/02/19 06/02/19 13:30 13:30 Creatine Kinase < 20 L CK-MB (CK-2) 1.68 Troponin I 0.175 NT-Pro-B Natriuret Pep 4000 H Impressions: Chest X-Ray 05/21/19 23:04 IMPRESSION: 1. No acute pulmonary findings. 2. Previous sternotomy Guidance Fluoroscopy 05/22/19 00:00 IMPRESSION: SUCCESSFUL PLACEMENT OF A 5 FR DUAL LUMEN 39 CM PICC IN THE LEFT BASILIC VEIN. Interventional Vascular Procedure 05/22/19 00:00 IMPRESSION: SUCCESSFUL PLACEMENT OF A 5 FR DUAL LUMEN 39 CM PICC IN THE LEFT BASILIC VEIN. PICC Line Insertion 05/22/19 00:00 IMPRESSION: SUCCESSFUL PLACEMENT OF A 5 FR DUAL LUMEN 39 CM PICC IN THE LEFT BASILIC VEIN. Abdomen Ultrasound 05/28/19 00:00 IMPRESSION: Mild splenomegaly. No acute findings otherwise. Abdomen/Pelvis CT 06/06/19 00:00 IMPRESSION: 1. Gastric distention and debris. Ileus. Constipation. 2. Normal appendix. No acute abdominopelvic abnormality. Assessment and Plan - Diagnosis (1) Endocarditis Qualifiers: Endocarditis type: infective Is this a current diagnosis for this admission?: Yes Plan: 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 Status post tricuspid valve replacement September 2018 at [facility]. 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 Presented to ED with dull retrosternal chest pain which has been present since valve replacement. Was a started started on IV vancomycin by Dr. Bowen hospitalist at [facility]. 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 [facility] on regional diversion at the admission time and was admitted here at [facility]. 05/21/2019. TTE LVEF 60%. No thrombus or vegetations noted. Severe tricuspid regurgitation. RSVP 48 to 53 mmHg.05/27/2019 Started on empiric broad-spectrum IV antibiotics. PICC line placed on 05/22/2018 on the left basilic vein. Multiple positive blood cultures for pseudomonas aeruginosa. Last negative blood culture 05/31/2019. Last negative blood culture 05/31/2019. Day 18 IV antibiotics. Day 10/56 of IV antibiotics. Day 18 IV cefepime. Day 10 IV levofloxacin. I have called transfer center at [facility] for possible transfer for SANJU. Not received a call back. I have been informed that [facility] will be able to do SANJU starting early June. Patient has stable and receiving IV antibiotics SANJU can wait until early June if not will call [facility] again for transfer for SANJU. We will also consult infectious disease specialist for further recommendation. Unfortunately patient has a drug abuse and could not be sent home on IV antibiotics. 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 Status post tricuspid valve replacement September 2018 at [facility]. Presented to ED with dull retrosternal chest pain which has been present since valve replacement. Was a started started on IV vancomycin by Dr. Bowen hospitalist at [facility]. 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 [facility] on regional diversion at the admission time and was admitted here at [facility]. 05/21/2019. TTE LVEF 60%. No thrombus or vegetations noted. Severe tricuspid regurgitation. RSVP 48 to 53 mmHg.05/27/2019 Started on empiric broad-spectrum IV antibiotics. PICC line placed on 05/22/2018 on the left basilic vein. Multiple positive blood cultures for pseudomonas aeruginosa. Last negative blood culture 05/31/2019. Plan as per #1 (3) IV drug abuse Is this a current diagnosis for this admission?: Yes Plan: Persistent IV drug abuse. Was a started on Subutex 05/27/2019. Was encouraged to rehab admission one day before discharge. Continue Subutex. (4) Abdominal pain Qualifiers: Abdominal location: generalized Qualified Code(s): R10.84 - Generalized abdominal pain Is this a current diagnosis for this admission?: Yes Plan: Significant improvement. CT abdomen pelvis no acute findings for severe constipation. History of cholecystectomy. History of hepatitis C. History of hepatic steatosis. Lipase WNL. Continue beta-blockers and supportive measures. Continue bowel regimen. Encourage ambulation and high-fiber diet. (5) Anemia Qualifiers: Anemia type: iron deficiency Iron deficiency anemia type: unspecified iron deficiency Qualified Code(s): D50.9 - Iron deficiency anemia, unspecified Is this a current diagnosis for this admission?: Yes Plan: Microcytic. Likely combination of anemia of chronic disease and iron deficiency anemia. Hemoglobin is 7.7 today. Patient does complain of easy fatigability. Has any easy bleeding, nosebleeds, hematemesis, hemoptysis, hematochezia, vagina l bleeding or melena. 05/30/2019. Iron panel. Serum iron 18.8, TIBC 270, saturation 7%, ferritin 213, folate 5.53, B12 folate 306, 06/08/2019. Status post 2 PRBC transfusion. Daily H&H, monitor for bleeding, supportive transfusions, ferrous sulfate.
[2019-06-09] MEDS: ATORVASTATIN CALCIUM 40 MG TABLET PO SCH (21:54)
[2019-06-09] MEDS: ACETAMINOPHEN 325 MG TABLET PO PRN (23:09)
[2019-06-10] MEDS: PANTOPRAZOLE SODIUM 40 MG TABLET.DR PO SCH ×2 (05:37→17:01)
[2019-06-10] MEDS: CEFEPIME HCL 2 GM in DEXTROSE 5%-WATER 50 ML IV SCH ×2 (05:37→17:00)
[2019-06-10] MEDS: LEVOFLOXACIN 750 MG TABLET PO SCH (05:37)
[2019-06-10 08:45] LABS: URINE AMPHETAMINES SCREEN NEGATIVE; URINE BARBITURATES SCREEN NEGATIVE; URINE BENZODIAZEPINES SCREEN NEGATIVE; URINE COCAINE SCREEN NEGATIVE; URINE MARIJUANA (THC) SCREEN NEGATIVE; URINE METHADONE SCREEN NEGATIVE; URINE PHENCYCLIDINE SCREEN NEGATIVE
[2019-06-10] MEDS: GABAPENTIN 300 MG CAPSULE PO SCH ×2 (09:37→17:00)
[2019-06-10] MEDS: METOPROLOL TARTRATE 25 MG TABLET PO SCH ×2 (09:37→21:09)
[2019-06-10] MEDS: ASCORBIC ACID 500 MG TABLET PO SCH ×2 (09:37→17:01)
[2019-06-10] MEDS: FERROUS SULFATE 325 MG TABLET PO SCH ×2 (09:37→17:01)
[2019-06-10] MEDS: PROMETHAZINE HCL INJ 25 MG/1 ML VIAL IV PRN ×3 (09:38→21:07)
[2019-06-10] MEDS: MIDODRINE HCL 5 MG TABLET PO SCH ×3 (09:38→17:00)
[2019-06-10] MEDS: BUPRENORPHINE HCL 2 MG SUBLINGUAL TABLET SL SCH ×2 (09:38→21:08)
[2019-06-10] MEDS: DULOXETINE HCL 20 MG CAPSULE.DR PO SCH (09:39)
[2019-06-10] MEDS: NORMAL SALINE 10 ML SDV (SCHEDULED) IV SCH ×2 (09:39→21:08)
[2019-06-10] MEDS: DOCUSATE SODIUM 100 MG CAPSULE PO SCH ×2 (09:39→17:01)
[2019-06-10] MEDS: NICOTINE 14 MG/24 HR PATCH.TD24 TD SCH (09:40)
--- NOTE | 2019-06-10 12:35 | PDOC PROGRESS REPORT ---
Subjective Progress Note for:: 06/10/19 Subjective:: Very sleepy/lethargic at 11:30 AM. She stated that she did sleep well last night. Interestingly her urine toxicology was positive for opiates. She is on tramadol and I will need to investigate if this will react to the urine screen. Reason For Visit: IVDU,SEPSIS,ENDOCARDITIS Physical Exam Vital Signs: Temp Pulse Resp BP Pulse Ox 97.3 F 73 17 78/50 L 95 06/10/19 11:06 06/10/19 11:06 06/10/19 11:06 06/10/19 11:06 06/10/19 11:06 Intake & Output 06/09/19 06/10/19 06/11/19 06:59 06:59 06:59 Intake Total 2245 1440 Balance 2245 1440 Weight 71.9 kg 72.7 kg General appearance: PRESENT: no acute distress, well-developed, other - Somnolent Head exam: PRESENT: atraumatic, normocephalic Ear exam: PRESENT: normal external ear exam. ABSENT: bleeding, drainage Respiratory exam: PRESENT: clear to auscultation sandrita, symmetrical, unlabored. ABSENT: accessory muscle use, rales, rhonchi, tachypnea, wheezes Cardiovascular exam: PRESENT: RRR, +S1, +S2, systolic murmur - 4/6 GI/Abdominal exam: PRESENT: normal bowel sounds, soft. ABSENT: distended, guarding, tenderness Extremities exam: ABSENT: calf tenderness, joint swelling, pedal edema Musculoskeletal exam: PRESENT: ambulatory, normal inspection Neurological exam: PRESENT: alert, awake, oriented to person, oriented to place, oriented to time, oriented to situation, CN II-XII grossly intact Psychiatric exam: PRESENT: other - Sleepy this morning. ABSENT: agitated, anxious Focused psych exam: ABSENT: delusional, restlessness Skin exam: PRESENT: dry, normal color, warm. ABSENT: rash Results Laboratory Results: 06/09/19 05:10 06/09/19 05:10 05/21/19 05/22/19 05/22/19 23:07 02:06 11:00 Creatine Kinase CK-MB (CK-2) Troponin I 0.098 0.098 0.070 NT-Pro-B Natriuret Pep 05/22/19 05/22/19 05/22/19 14:00 14:35 20:04 Creatine Kinase CK-MB (CK-2) Troponin I Cancelled 0.060 0.037 NT-Pro-B Natriuret Pep 05/28/19 05/28/19 06/02/19 00:15 00:15 00:20 Creatine Kinase < 20 L < 20 L CK-MB (CK-2) 0.49 Troponin I 0.077 NT-Pro-B Natriuret Pep 06/02/19 06/02/19 06/02/19 00:20 06:15 06:15 Creatine Kinase < 20 L CK-MB (CK-2) 1.53 1.39 Troponin I 0.194 0.171 NT-Pro-B Natriuret Pep 06/02/19 06/02/19 13:30 13:30 Creatine Kinase < 20 L CK-MB (CK-2) 1.68 Troponin I 0.175 NT-Pro-B Natriuret Pep 4000 H Impressions: Chest X-Ray 05/21/19 23:04 IMPRESSION: 1. No acute pulmonary findings. 2. Previous sternotomy Guidance Fluoroscopy 05/22/19 00:00 IMPRESSION: SUCCESSFUL PLACEMENT OF A 5 FR DUAL LUMEN 39 CM PICC IN THE LEFT BASILIC VEIN. Interventional Vascular Procedure 05/22/19 00:00 IMPRESSION: SUCCESSFUL PLACEMENT OF A 5 FR DUAL LUMEN 39 CM PICC IN THE LEFT BASILIC VEIN. PICC Line Insertion 05/22/19 00:00 IMPRESSION: SUCCESSFUL PLACEMENT OF A 5 FR DUAL LUMEN 39 CM PICC IN THE LEFT BA SILIC VEIN. Abdomen Ultrasound 05/28/19 00:00 IMPRESSION: Mild splenomegaly. No acute findings otherwise. Abdomen/Pelvis CT 06/06/19 00:00 IMPRESSION: 1. Gastric distention and debris. Ileus. Constipation. 2. Normal appendix. No acute abdominopelvic abnormality. Assessment and Plan - Diagnosis (1) Bacteremia due to Pseudomonas Is this a current diagnosis for this admission?: Yes Plan: 06/10/2019-the patient continues on dual antibiotic therapy. Anticipate a full 6 weeks of therapy. (2) UTI (urinary tract infection) Qualifiers: Urinary tract infection type: acute cystitis Hematuria presence: without hematuria Qualified Code(s): N30.00 - Acute cystitis without hematuria Is this a current diagnosis for this admission?: Yes Plan: 06/10/2019-resolved (3) Hypokalemia Is this a current diagnosis for this admission?: Yes Plan: 06/10/2019-resolved we will continue to monitor electrolytes. (4) IV drug abuse Is this a current diagnosis for this admission?: Yes Plan: 06/10/2019-the patient did have a positive urine tox screen for opiates. She is on tramadol. I will need to check with pharmacy to see if it can cross-react on a urine drug screen. (5) Endocarditis Qualifiers: Endocarditis type: infective Is this a current diagnosis for this admission?: Yes Plan: 06/10/2019-the patient has had valve surgery earlier this year. We will be getting a SANJU and plan on 6 weeks of antibiotic therapy from her first repeat set of blood cultures that are no growth. (6) Abdominal pain Qualifiers: Abdominal location: generalized Qualified Code(s): R10.84 - Generalized abdominal pain Is this a current diagnosis for this admission?: Yes Plan: 06/10/2019-resolved (7) Hepatitis C Qualifiers: Viral hepatitis chronicity: chronic Hepatic coma status: without hepatic coma Qualified Code(s): B18.2 - Chronic viral hepatitis C Is this a current diagnosis for this admission?: Yes Plan: 06/10/2019-chronic. Will need evaluation and follow-up as an outpatient. (8) Steatohepatitis Is this a current diagnosis for this admission?: Yes Plan: 06/10/2019-likely due to the hepatitis C. Will need hepatology/gastroenterology as an outpatient. (9) Anemia Qualifiers: Anemia type: iron deficiency Iron deficiency anemia type: unspecified iron deficiency Qualified Code(s): D50.9 - Iron deficiency anemia, unspecified Is this a current diagnosis for this admission?: Yes Plan: 06/10/2019-continue current supplements. Hemoglobin is slowly improving. - Time Time Spent with patient: Less than 15 minutes Medications reviewed and adjusted accordingly: Yes
--- NOTE | 2019-06-10 16:06 | Progress Note ---
Provider Note Provider Note: ID Consult Note Asked to review patient's chart. Pt not seen or examined. Ms. Huffman is a 43 year old woman with PMH including IVDU and prior tricuspid valve endocarditis s/p valve replacement in Sep 2018 at [facility]. She presented to [place] on 05/22/19 with CP and SOB. She was found to have sepsis with hypotension, tachycardia, leukocytosis, and thrombocytopenia due to Pseudomonas aeruginosa bacteremia. The bloodstream infection was persistent with repeat blood cultures positive on 05/24 in both sets and again in one set on 05/27 and in both sets from 05/29. Repeat blood cultures from 05/31 and 06/03 show clearance of the bacteremia. Her exam has been noted to include a systolic murmur. Imaging included CXR that showed no acute findings. PICC was placed in [facility] on 05/22 also. Impression/Recommendations probable infective endocarditis due to Pseudomonas aeruginosa - active IVDU and prosthetic valve as predisposing factors, sustained otherwise unexplained bacteremia with the same organism - f/u SANJU - Agree, duration of therapy is anticipated to be 6 weeks from date of blood culture clearance; she is likely to have endocarditis. - management has been appropriate with antipseudomonal beta-lactam plus fluoroquinolone - suggest increasing cefepime to 2 grams q8h - consider switch to ciprofloxacin 750 mg bid PO (ask pharmacy to help schedule iron if needed to avoid coadministration), as the additional Gram positive activity of Levaquin is not required and ciprofloxacin tends to have a little bit better activity against Pseudomonas, although both fluoroquinolones are reported susceptible. - Would replace PICC line if it is possible to do so / not limited by lack of IV access. Although I do not suspect that it was the source of the bacteremia, the PICC line was placed while patient was still bacteremic and could potentially serve as a nidus for relapse/reinfection. It is generally not advisable to attempt to retain central lines associated with Staph aureus, Pseudomonas aeruginosa or Daya bloodstream infections. Jorge Luis Verma MD [facility] Infectious Diseases pager [phone]
[2019-06-10] MEDS: TRAMADOL HCL 50 MG TABLET PO PRN (21:08)
[2019-06-10] MEDS: ATORVASTATIN CALCIUM 40 MG TABLET PO SCH (21:08)
[2019-06-11] MEDS: ACETAMINOPHEN 325 MG TABLET PO PRN (01:19)
[2019-06-11] MEDS: PROMETHAZINE HCL INJ 25 MG/1 ML VIAL IV PRN ×5 (01:19→21:08)
[2019-06-11] MEDS: CEFEPIME HCL 2 GM in DEXTROSE 5%-WATER 50 ML IV SCH ×2 (05:19→17:18)
[2019-06-11] MEDS: LEVOFLOXACIN 750 MG TABLET PO SCH (05:19)
[2019-06-11] MEDS: PANTOPRAZOLE SODIUM 40 MG TABLET.DR PO SCH ×2 (05:19→17:18)
[2019-06-11] MEDS: ASCORBIC ACID 500 MG TABLET PO SCH ×2 (09:43→17:18)
[2019-06-11] MEDS: BUPRENORPHINE HCL 2 MG SUBLINGUAL TABLET SL SCH ×2 (09:44→21:09)
[2019-06-11] MEDS: MIDODRINE HCL 5 MG TABLET PO SCH ×3 (09:44→17:18)
[2019-06-11] MEDS: GABAPENTIN 300 MG CAPSULE PO SCH ×2 (09:44→17:18)
[2019-06-11] MEDS: METOPROLOL TARTRATE 25 MG TABLET PO SCH ×2 (09:44→21:09)
[2019-06-11] MEDS: FERROUS SULFATE 325 MG TABLET PO SCH ×2 (09:44→17:18)
[2019-06-11] MEDS: NORMAL SALINE 10 ML SDV (SCHEDULED) IV SCH ×2 (09:45→21:08)
[2019-06-11] MEDS: DOCUSATE SODIUM 100 MG CAPSULE PO SCH ×2 (09:47→17:20)
[2019-06-11] MEDS: NICOTINE 14 MG/24 HR PATCH.TD24 TD SCH (09:47)
[2019-06-11] MEDS: DULOXETINE HCL 20 MG CAPSULE.DR PO SCH (09:47)
--- NOTE | 2019-06-11 18:23 | PDOC PROGRESS REPORT ---
Subjective Progress Note for:: 06/11/19 Subjective:: The patient is more awake and alert today. She does report feeling depressed and going "stir crazy ". Reason For Visit: IVDU,SEPSIS,ENDOCARDITIS Physical Exam Vital Signs: Temp Pulse Resp BP Pulse Ox 98.4 F 76 16 94/53 L 100 06/11/19 15:59 06/11/19 15:59 06/11/19 15:59 06/11/19 15:59 06/11/19 15:59 Intake & Output 06/10/19 06/11/19 06/12/19 06:59 06:59 06:59 Intake Total 1440 1422 949 Output Total 900 Balance 1440 522 949 Weight 72.7 kg 72.7 kg General appearance: PRESENT: no acute distress, cooperative, well-developed Head exam: PRESENT: atraumatic, normocephalic Eye exam: PRESENT: conjunctiva pink. ABSENT: scleral icterus Ear exam: PRESENT: normal external ear exam. ABSENT: bleeding, drainage Mouth exam: PRESENT: moist, neck supple, tongue midline Respiratory exam: PRESENT: clear to auscultation sanrdita, symmetrical, unlabored. ABSENT: rales, rhonchi, tachypnea, wheezes Cardiovascular exam: PRESENT: RRR, +S1, +S2, systolic murmur - 4/6 GI/Abdominal exam: PRESENT: normal bowel sounds, soft. ABSENT: distended, g uarding, tenderness Extremities exam: ABSENT: calf tenderness, joint swelling, pedal edema Musculoskeletal exam: PRESENT: ambulatory, normal inspection. ABSENT: deformity Neurological exam: PRESENT: alert, awake, oriented to person, oriented to place, oriented to time, oriented to situation, CN II-XII grossly intact Psychiatric exam: PRESENT: depressed, flat affect. ABSENT: agitated, anxious Focused psych exam: ABSENT: delusional, restlessness Results Laboratory Results: 06/09/19 05:10 06/09/19 05:10 05/21/19 05/22/19 05/22/19 23:07 02:06 11:00 Creatine Kinase CK-MB (CK-2) Troponin I 0.098 0.098 0.070 NT-Pro-B Natriuret Pep 05/22/19 05/22/19 05/22/19 14:00 14:35 20:04 Creatine Kinase CK-MB (CK-2) Troponin I Cancelled 0.060 0.037 NT-Pro-B Natriuret Pep 05/28/19 05/28/19 06/02/19 00:15 00:15 00:20 Creatine Kinase < 20 L < 20 L CK-MB (CK-2) 0.49 Troponin I 0.077 NT-Pro-B Natriuret Pep 06/02/19 06/02/19 06/02/19 00:20 06:15 06:15 Creatine Kinase < 20 L CK-MB (CK-2) 1.53 1.39 Troponin I 0.194 0.171 NT-Pro-B Natriuret Pep 06/02/19 06/02/19 13:30 13:30 Creatine Kinase < 20 L CK-MB (CK-2) 1.68 Troponin I 0.175 NT-Pro-B Natriuret Pep 4000 H Impressions: Chest X-Ray 05/21/19 23:04 IMPRESSION: 1. No acute pulmonary findings. 2. Previous sternotomy Guidance Fluoroscopy 05/22/19 00:00 IMPRESSION: SUCCESSFUL PLACEMENT OF A 5 FR DUAL LUMEN 39 CM PICC IN THE LEFT BASILIC VEIN. Interventional Vascular Procedure 05/22/19 00:00 IMPRESSION: SUCCESSFUL PLACEMENT OF A 5 FR DUAL LUMEN 39 CM PICC IN THE LEFT BASILIC VEIN. PICC Line Insertion 05/22/19 00:00 IMPRESSION: SUCCESSFUL PLACEMENT OF A 5 FR DUAL LUMEN 39 CM PICC IN THE LEFT BASILIC VEIN. Abdomen Ultrasound 05/28/19 00:00 IMPRESSION: Mild splenomegaly. No acute findings otherwise. Abdomen/Pelvis CT 06/06/19 00:00 IMPRESSION: 1. Gastric distention and debris. Ileus. Constipation. 2. Normal appendix. No acute abdominopelvic abnormality. Assessment and Plan - Diagnosis (1) Bacteremia due to Pseudomonas Is this a current diagnosis for this admission?: Yes Plan: 06/10/2019-the patient continues on dual antibiotic therapy. Anticipate a full 6 weeks of therapy. 06/11/2019-infectious diseases did review the case. I will review Dr. Verma's note and make any appropriate changes. (2) UTI (urinary tract infection) Qualifiers: Urinary tract infection type: acute cystitis Hematuria presence: without hematuria Qualified Code(s): N30.00 - Acute cystitis without hematuria Is this a current diagnosis for this admission?: Yes Plan: 06/10/2019-resolved (3) Hypokalemia Is this a current diagnosis for this admission?: Yes Plan: 06/10/2019-resolved we will continue to monitor electrolytes. 06/11/2019-as above (4) IV drug abuse Is this a current diagnosis for this admission?: Yes Plan: 06/10/2019-the patient did have a positive urine tox screen for opiates. She is on tramadol. I will need to check with pharmacy to see if it can cross-react on a urine drug screen. 06/11/2019-the patient was exceptionally groggy yesterday. A urine toxicology screen did show positive for opiates. I did contact the pharmacy. Tramadol can cross-react on a urine drug screen. We did send out for confirmation for this test. Once confirmed I will discuss with the patient. (5) Endocarditis Qualifiers: Endocarditis type: infective Is this a current diagnosis for this admission?: Yes Plan: 06/10/2019-the patient has had valve surgery earlier this year. We will be getting a SANJU and plan on 6 weeks of antibiotic therapy from her first repeat set of blood cultures that are no growth. 06/11/2019-review infectious diseases note and continue antibiotic therapy. Transesophageal echo will be ordered prior to completion of antibiotic therapy. (6) Abdominal pain Qualifiers: Abdominal location: generalized Qualified Code(s): R10.84 - Generalized abdominal pain Is this a current diagnosis for this admission?: Yes Plan: 06/10/2019-resolved 06/11/2019 as above (7) Hepatitis C Qualifiers: Viral hepatitis chronicity: chronic Hepatic coma status: without hepatic c geovanni Qualified Code(s): B18.2 - Chronic viral hepatitis C Is this a current diagnosis for this admission?: Yes Plan: 06/10/2019-chronic. Will need evaluation and follow-up as an outpatient. 06/11/2019-no change in treatment plan (8) Steatohepatitis Is this a current diagnosis for this admission?: Yes Plan: 06/10/2019-likely due to the hepatitis C. Will need hepatology/gastroenterology as an outpatient. 06/11/2019-looking back the steatohepatitis certainly could have contributed to her abdominal pain. She is not having any additional pain. We will continue to monitor. (9) Anemia Qualifiers: Anemia type: iron deficiency Iron deficiency anemia type: unspecified iron deficiency Qualified Code(s): D50.9 - Iron deficiency anemia, unspecified Is this a current diagnosis for this admission?: Yes Plan: 06/10/2019-continue current supplements. Hemoglobin is slowly improving. 06/11/2019-continue to monitor hemoglobin. (10) Depression Qualifiers: Depression Type: other depression Qualified Code(s): F32.89 - Other specif ied depressive episodes Is this a current diagnosis for this admission?: Yes Plan: 06/11/2019-this is most likely a reactive depression to her current situation. I will initiate low-dose antidepressant therapy in anticipation of a long recover y. - Time Time Spent with patient: 15-24 minutes Medications reviewed and adjusted accordingly: Yes
[2019-06-11] MEDS: TRAMADOL HCL 50 MG TABLET PO PRN (21:08)
[2019-06-11] MEDS: ATORVASTATIN CALCIUM 40 MG TABLET PO SCH (21:09)
[2019-06-11] MEDS: CIPROFLOXACIN HCL 750 MG TABLET PO SCH (22:24)
[2019-06-12] MEDS: CEFEPIME HCL 2 GM in DEXTROSE 5%-WATER 50 ML IV SCH ×3 (01:44→18:07)
[2019-06-12] MEDS: PROMETHAZINE HCL INJ 25 MG/1 ML VIAL IV PRN ×5 (01:44→22:17)
[2019-06-12] MEDS: PANTOPRAZOLE SODIUM 40 MG TABLET.DR PO SCH ×2 (05:36→18:07)
[2019-06-12] MEDS: ASCORBIC ACID 500 MG TABLET PO SCH ×2 (09:12→18:07)
[2019-06-12] MEDS: FERROUS SULFATE 325 MG TABLET PO SCH ×2 (09:12→18:07)
[2019-06-12] MEDS: METOPROLOL TARTRATE 25 MG TABLET PO SCH ×2 (09:13→22:20)
[2019-06-12] MEDS: DOCUSATE SODIUM 100 MG CAPSULE PO SCH ×2 (09:13→18:00)
[2019-06-12] MEDS: GABAPENTIN 300 MG CAPSULE PO SCH ×2 (09:14→18:07)
[2019-06-12] MEDS: NICOTINE 14 MG/24 HR PATCH.TD24 TD SCH (09:14)
[2019-06-12] MEDS: NORMAL SALINE 10 ML SDV (SCHEDULED) IV SCH ×2 (09:14→22:19)
[2019-06-12] MEDS: BUPRENORPHINE HCL 2 MG SUBLINGUAL TABLET SL SCH ×2 (09:14→22:22)
[2019-06-12] MEDS: TRAMADOL HCL 50 MG TABLET PO PRN ×2 (09:15→22:19)
[2019-06-12] MEDS: DULOXETINE HCL 20 MG CAPSULE.DR PO SCH ×2 (09:16→18:00)
[2019-06-12] MEDS: MIDODRINE HCL 5 MG TABLET PO SCH ×3 (09:18→18:08)
[2019-06-12] MEDS: CIPROFLOXACIN HCL 750 MG TABLET PO SCH ×2 (09:18→22:20)
--- NOTE | 2019-06-12 17:51 | PDOC PROGRESS REPORT ---
Subjective Progress Note for:: 06/12/19 Subjective:: Sleepy again this afternoon. Not as depressed. No new complaints. Reason For Visit: IVDU,SEPSIS,ENDOCARDITIS Physical Exam Vital Signs: Temp Pulse Resp BP Pulse Ox 98.6 F 79 12 90/42 L 99 06/12/19 12:44 06/12/19 12:44 06/12/19 12:44 06/12/19 12:44 06/12/19 12:44 Intake & Output 06/11/19 06/12/19 06/13/19 06:59 06:59 06:59 Intake Total 1422 1663 50 Output Total 900 Balance 522 1663 50 Weight 72.7 kg 91.4 kg General appearance: PRESENT: no acute distress, cooperative, well-developed Head exam: PRESENT: atraumatic, normocephalic Eye exam: PRESENT: conjunctiva pink. ABSENT: periorbital swelling, scleral icterus Mouth exam: PRESENT: moist, tongue midline Respiratory exam: PRESENT: clear to auscultation sandrita, symmetrical, unlabored. ABSENT: rales, rhonchi, tachypnea, wheezes Cardiovascular exam: PRESENT: RRR, +S1, +S2, systolic murmur - 4/6 GI/Abdominal exam: PRESENT: normal bowel sounds, soft. ABSENT: distended, guarding, tenderness Extremities exam: ABSENT: joint swelling, pedal edema Musculoskeletal exam: PRESENT: ambulatory, full ROM, normal inspection. ABSENT: deformity Neurological exam: PRESENT: alert, awake, oriented to person, oriented to place, oriented to time, oriented to situation, CN II-XII grossly intact Psychiatric exam: PRESENT: appropriate affect, normal mood. ABSENT: agitated, anxious Focused psych exam: ABSENT: delusional, restlessness Results Laboratory Results: 06/09/19 05:10 06/09/19 05:10 05/21/19 05/22/19 05/22/19 23:07 02:06 11:00 Creatine Kinase CK-MB (CK-2) Troponin I 0.098 0.098 0.070 NT-Pro-B Natriuret Pep 05/22/19 05/22/19 05/22/19 14:00 14:35 20:04 Creatine Kinase CK-MB (CK-2) Troponin I Cancelled 0.060 0.037 NT-Pro-B Natriuret Pep 05/28/19 05/28/19 06/02/19 00:15 00:15 00:20 Creatine Kinase < 20 L < 20 L CK-MB (CK-2) 0.49 Troponin I 0.077 NT-Pro-B Natriuret Pep 06/02/19 06/02/19 06/02/19 00:20 06:15 06:15 Creatine Kinase < 20 L CK-MB (CK-2) 1.53 1.39 Troponin I 0.194 0.171 NT-Pro-B Natriuret Pep 06/02/19 06/02/19 13:30 13:30 Creatine Kinase < 20 L CK-MB (CK-2) 1.68 Troponin I 0.175 NT-Pro-B Natriuret Pep 4000 H Impressions: Chest X-Ray 05/21/19 23:04 IMPRESSION: 1. No acute pulmonary findings. 2. Previous sternotomy Guidance Fluoroscopy 05/22/19 00:00 IMPRESSION: SUCCESSFUL PLACEMENT OF A 5 FR DUAL LUMEN 39 CM PICC IN THE LEFT BASILIC VEIN. Interventional Vascular Procedure 05/22/19 00:00 IMPRESSION: SUCCESSFUL PLACEMENT OF A 5 FR DUAL LUMEN 39 CM PICC IN THE LEFT BASILIC VEIN. PICC Line Insertion 05/22/19 00:00 IMPRESSION: SUCCESSFUL PLACEMENT OF A 5 FR DUAL LUMEN 39 CM PICC IN THE LEFT BASILIC VEIN. Abdomen Ultrasound 05/28/19 00:00 IMPRESSION: Mild splenomegaly. No acute findings otherwise. Abdomen/Pelvis CT 06/06/19 00:00 IMPRESSION: 1. Gastric distention and debris. Ileus. Constipation. 2. Normal appendix. No acute abdominopelvic abnormality. Assessment and Plan - Diagnosis (1) Bacteremia due to Pseudomonas Is this a current diagnosis for this admission?: Yes Plan: 06/10/2019-the patient continues on dual antibiotic therapy. Anticipate a full 6 weeks of therapy. 06/11/2019-infectious diseases did review the case. I will review Dr. Verma's note and make any appropriate changes. 06/12/2019-antibiotics changed per suggestion of infectious diseases. (2) UTI (urinary tract infection) Qualifiers: Urinary tract infection type: acute cystitis Hematuria presence: without hematuria Qualified Code(s): N30.00 - Acute cystitis without hematuria Is this a current diagnosis for this admission?: Yes Plan: 06/10/2019-resolved (3) Hypokalemia Is this a current diagnosis for this admission?: Yes Plan: 06/10/2019-resolved we will continue to monitor electrolytes. 06/11/2019-as above 06/12/2019-recheck electrolytes (4) IV drug abuse Is this a current diagnosis for this admission?: Yes Plan: 06/10/2019-the patient did have a positive urine tox screen for opiates. She is on tramadol. I will need to check with pharmacy to see if it can cross-react on a urine drug screen. 06/11/2019-the patient was exceptionally groggy yesterday. A urine toxicology screen did show positive for opiates. I did contact the pharmacy. Tramadol can cross-react on a urine drug screen. We did send out for confirmation for this test. Once confirmed I will discuss with the patient. 06/12/2019-the patient's opiate confirmation study is still pending (5) Endocarditis Qualifiers: Endocarditis type: infective Is this a current diagnosis for this admission?: Yes Plan: 06/10/2019-the patient has had valve surgery earlier this year. We will be getting a SANJU and plan on 6 weeks of antibiotic therapy from her first repeat set of blood cultures that are no growth. 06/11/2019-review infectious diseases note and continue antibiotic therapy. Transesophageal echo will be ordered prior to completion of antibiotic therapy. 06/12/2019-tentatively scheduled SANJU June 24 or . (6) Abdominal pain Qualifiers: Abdominal location: generalized Qualified Code(s): R10.84 - Generalized abdominal pain Is this a current diagnosis for this admission?: Yes Plan: 06/10/2019-resolved 06/11/2019 as above (7) Hepatitis C Qualifiers: Viral hepatitis chronicity: chronic Hepatic coma status: without hepatic coma Qualified Code(s): B18.2 - Chronic viral hepatitis C Is this a current diagnosis for this admission?: Yes Plan: 06/10/2019-chronic. Will need evaluation and follow-up as an outpatient. 06/11/2019-no change in treatment plan (8) Steatohepatitis Is this a current diagnosis for this admission?: Yes Plan: 06/10/2019-likely due to the hepatitis C. Will need hepatology/gastroenterology as an outpatient. 06/11/2019-looking back the steatohepatitis certainly could have contributed to her abdominal pain. She is not having any additional pain. We will continue to monitor. 06/12/2019-continue conservative care (9) Anemia Qualifiers: Anemia type: iron deficiency Iron deficiency anemia type: unspecified iron deficiency Qualified Code(s): D50.9 - Iron deficiency anemia, unspecified Is this a current diagnosis for this admission?: Yes Plan: 06/10/2019-continue current supplements. Hemoglobin is slowly improving. 06/11/2019-continue to monitor hemoglobin. 06/12/2019 continue iron supplement (10) Depression Qualifiers: Depression Type: other depression Qualified Code(s): F32.89 - Other specified depressive episodes Is this a current diagnosis for this admission?: Yes Plan: 06/11/2019-this is most likely a reactive depression to her current situation. I will initiate low-dose antidepressant therapy in anticipation of a long recovery. 06/12/2019-tolerating antidepressant - Time Time Spent with patient: Less than 15 minutes Medications reviewed and adjusted accordingly: Yes
[2019-06-12] MEDS: ATORVASTATIN CALCIUM 40 MG TABLET PO SCH (22:22)
[2019-06-13] MEDS: PROMETHAZINE HCL 25 MG TABLET PO PRN (01:06)
[2019-06-13] MEDS: CEFEPIME HCL 2 GM in DEXTROSE 5%-WATER 50 ML IV SCH ×2 (01:06→11:24)
[2019-06-13] MEDS: PROMETHAZINE HCL INJ 25 MG/1 ML VIAL IV PRN ×5 (02:16→22:29)
[2019-06-13] MEDS: TRAMADOL HCL 50 MG TABLET PO PRN ×2 (06:25→22:16)
[2019-06-13] MEDS: PANTOPRAZOLE SODIUM 40 MG TABLET.DR PO SCH ×2 (06:25→17:50)
[2019-06-13] MEDS: FERROUS SULFATE 325 MG TABLET PO SCH ×2 (08:50→17:50)
[2019-06-13] MEDS: ASCORBIC ACID 500 MG TABLET PO SCH ×2 (08:50→17:50)
[2019-06-13] MEDS: NORMAL SALINE 10 ML SDV (SCHEDULED) IV SCH ×2 (11:08→22:21)
[2019-06-13] MEDS: BUPRENORPHINE HCL 2 MG SUBLINGUAL TABLET SL SCH ×2 (11:09→22:20)
[2019-06-13] MEDS: DOCUSATE SODIUM 100 MG CAPSULE PO SCH ×2 (11:09→17:50)
[2019-06-13] MEDS: METOPROLOL TARTRATE 25 MG TABLET PO SCH ×2 (11:12→22:18)
[2019-06-13] MEDS: DULOXETINE HCL 20 MG CAPSULE.DR PO SCH ×2 (11:13→17:51)
[2019-06-13] MEDS: MIDODRINE HCL 5 MG TABLET PO SCH ×3 (11:15→17:51)
[2019-06-13] MEDS: GABAPENTIN 300 MG CAPSULE PO SCH ×2 (11:15→17:50)
[2019-06-13] MEDS: CIPROFLOXACIN HCL 750 MG TABLET PO SCH ×2 (11:15→22:21)
[2019-06-13] MEDS: NICOTINE 14 MG/24 HR PATCH.TD24 TD SCH (11:15)
[2019-06-13] MEDS: CEFEPIME 2 GM/D5W RTU 2 GM/50 ML RTUPB IV SCH (17:55)
[2019-06-13] MEDS ORDERED: FLUCONAZOLE 100 MG TABLET PO ONE (21:39)
[2019-06-13] MEDS: CARBOXYMETHYLCELLULOSE SOD 0.5% 0.4 ML DROPERETTE OU PRN (22:16)
[2019-06-13] MEDS: ATORVASTATIN CALCIUM 40 MG TABLET PO SCH (22:21)
--- NOTE | 2019-06-13 22:53 | PDOC PROGRESS REPORT ---
Subjective Progress Note for:: 06/13/19 Subjective:: Patient is actually standing at the sink. She just showered and is brushing her teeth. She does complain of likely vaginal candidiasis from antibiotic therapy. Reason For Visit: IVDU,SEPSIS,ENDOCARDITIS Physical Exam Vital Signs: Temp Pulse Resp BP Pulse Ox 97.8 F 82 16 110/67 100 06/13/19 20:15 06/13/19 20:15 06/13/19 20:15 06/13/19 20:15 06/13/19 20:15 Intake & Output 06/12/19 06/13/19 06/14/19 06:59 06:59 06:59 Intake Total 1663 1417 650 Output Total 3 Balance 1663 1414 650 Weight 91.4 kg 87.8 kg General appearance: PRESENT: no acute distress, cooperative, well-developed Head exam: PRESENT: atraumatic, normocephalic Eye exam: PRESENT: conjunctiva pink. ABSENT: scleral icterus Ear exam: PRESENT: normal external ear exam. ABSENT: bleeding, drainage Mouth exam: PRESENT: moist, neck supple, tongue midline Respiratory exam: PRESENT: clear to auscultation sandrita, symmetrical, unlabored. ABSENT: rales, rhonchi, tachypnea, wheezes Cardiovascular exam: PRESENT: RRR, +S1, +S2, systolic murmur - 4/6. ABSENT: tachycardia GI/Abdominal exam: PRESENT: normal bowel sounds, soft. ABSENT: distended, guarding, tenderness Rectal exam: PRESENT: deferred Extremities exam: ABSENT: joint swelling, pedal edema, tenderness Musculoskeletal exam: PRESENT: ambulatory, full ROM, normal inspection. ABSENT: tenderness Neurological exam: PRESENT: alert, awake, oriented to person, oriented to place, oriented to time, oriented to situation, CN II-XII grossly intact Psychiatric exam: PRESENT: appropriate affect, normal mood. ABSENT: agitated, anxious Focused psych exam: ABSENT: delusional, restlessness Results Laboratory Results: 06/09/19 05:10 06/09/19 05:10 05/21/19 05/22/19 05/22/19 23:07 02:06 11:00 Creatine Kinase CK-MB (CK-2) Troponin I 0.098 0.098 0.070 NT-Pro-B Natriuret Pep 05/22/19 05/22/19 05/22/19 14:00 14:35 20:04 Creatine Kinase CK-MB (CK-2) Troponin I Cancelled 0.060 0.037 NT-Pro-B Natriuret Pep 05/28/19 05/28/19 06/02/19 00:15 00:15 00:20 Creatine Kinase < 20 L < 20 L CK-MB (CK-2) 0.49 Troponin I 0.077 NT-Pro-B Natriuret Pep 06/02/19 06/02/19 06/02/19 00:20 06:15 06:15 Creatine Kinase < 20 L CK-MB (CK-2) 1.53 1.39 Troponin I 0.194 0.171 NT-Pro-B Natriuret Pep 06/02/19 06/02/19 13:30 13:30 Creatine Kinase < 20 L CK-MB (CK-2) 1.68 Troponin I 0.175 NT-Pro-B Natriuret Pep 4000 H Impressions: Chest X-Ray 05/21/19 23:04 IMPRESSION: 1. No acute pulmonary findings. 2. Previous sternotomy Guidance Fluoroscopy 05/22/19 00:00 IMPRESSION: SUCCESSFUL PLACEMENT OF A 5 FR DUAL LUMEN 39 CM PICC IN THE LEFT BASILIC VEIN. Interventional Vascular Procedure 05/22/19 00:00 IMPRESSION: SUCCESSFUL PLACEMENT OF A 5 FR DUAL LUMEN 39 CM PICC IN THE LEFT BASILIC VEIN. PICC Line Insertion 05/22/19 00:00 IMPRESSION: SUCCESSFUL PLACEMENT OF A 5 FR DUAL LUMEN 39 CM PICC IN THE LEFT BASILIC VEIN. Abdomen Ultrasound 05/28/19 00:00 IMPRESSION: Mild splenomegaly. No acute findings otherwise. Abdomen/Pelvis CT 06/06/19 00:00 IMPRESSION: 1. Gastric distention and debris. Ileus. Constipation. 2. Normal appendix. No acute abdominopelvic abnormality. Assessment and Plan - Diagnosis (1) Bacteremia due to Pseudomonas Is this a current diagnosis for this admission?: Yes Plan: 06/10/2019-the patient continues on dual antibiotic therapy. Anticipate a full 6 weeks of therapy. 06/11/2019-infectious diseases did review the case. I will review Dr. Verma's note and make any appropriate changes. 06/12/2019-antibiotics changed per suggestion of infectious diseases. 06/13/2019-tolerating changes in antibiotic therapy. She does feel that she is getting a yeast infection. We will increase her probiotics and treat with fluconazole. (2) UTI (urinary tract infection) Qualifiers: Urinary tract infection type: acute cystitis Hematuria presence: without hematuria Qualified Code(s): N30.00 - Acute cystitis without hematuria Is this a current diagnosis for this admission?: Yes Plan: 06/10/2019-resolved (3) Hypokalemia Is this a current diagnosis for this admission?: Yes Plan: 06/10/2019-resolved we will continue to monitor electrolytes. 06/11/2019-as above 06/12/2019-recheck electrolytes 06/13/2019-laboratory studies ordered for tomorrow (4) IV drug abuse Is this a current diagnosis for this admission?: Yes Plan: 06/10/2019-the patient did have a positive urine tox screen for opiates. She is on tramadol. I will need to check with pharmacy to see if it can cross-react on a urine drug screen. 06/11/2019-the patient was exceptionally groggy yesterday. A urine toxicology screen did show positive for opiates. I did contact the pharmacy. Tramadol can cross-react on a urine drug screen. We did send out for confirmation for this test. Once confirmed I will discuss with the patient. 06/12/2019-the patient's opiate confirmation study is still pending 06/13/2019-the patient is getting tramadol. Possible cross-reactivity on urine toxicology screen. Awaiting confirmation. Continue Suboxone. (5) Endocarditis Qualifiers: Endocarditis type: infective Is this a current diagnosis for this admission?: Yes Plan: 06/10/2019-the patient has had valve surgery earlier this year. We will be getting a SANJU and plan on 6 weeks of antibiotic therapy from her first repeat set of blood cultures that are no growth. 06/11/2019-review infectious diseases note and continue antibiotic therapy. Transesophageal echo will be ordered prior to completion of antibiotic therapy. 06/12/2019-tentatively scheduled SANJU June 24 or . 06/13/2019-tolerating antibiotic therapy with the exception of possible yeast infection. Will check routine laboratory studies and sed rate tomorrow (6) Abdominal pain Qualifiers: Abdominal location: generalized Qualified Code(s): R10.84 - Generalized abdominal pain Is this a current diagnosis for this admission?: Yes Plan: 06/10/2019-resolved 06/11/2019 as above (7) Hepatitis C Qualifiers: Viral hepatitis chronicity: chronic Hepatic coma status: without hepatic coma Qualified Code(s): B18.2 - Chronic viral hepatitis C Is this a current diagnosis for this admission?: Yes Plan: 06/10/2019-chronic. Will need evaluation and follow-up as an outpatient. 06/11/2019-no change in treatment plan (8) Steatohepatitis Is this a current diagnosis for this admission?: Yes Plan: 06/10/2019-likely due to the hepatitis C. Will need hepatology/gastroenterology as an outpatient. 06/11/2019-looking back the steatohepatitis certainly could have contributed to her abdominal pain. She is not having any additional pain. We will continue to monitor. 06/12/2019-continue conservative care (9) Anemia Qualifiers: Anemia type: iron deficiency Iron deficiency anemia type: unspecified iron deficiency Qualified Code(s): D50.9 - Iron deficiency anemia, unspecified Is this a current diagnosis for this admission?: Yes Plan: 06/10/2019-continue current supplements. Hemoglobin is slowly improving. 06/11/2019-continue to monitor hemoglobin. 06/12/2019 continue iron supplement 06/13/2019-routine laboratory monitoring for long-term antibiotics can typically be done in 1 week intervals. Laboratory studies ordered for tomorrow. (10) Depression Qualifiers: Depression Type: other depression Qualified Code(s): F32.89 - Other spec ified depressive episodes Is this a current diagnosis for this admission?: Yes Plan: 06/11/2019-this is most likely a reactive depression to her current situation. I will initiate low-dose antidepressant therapy in anticipation of a long recov alyson. 06/12/2019-tolerating antidepressant 06/13/2019-tolerating the increase duloxetine dose. (11) Daya vaginitis Is this a current diagnosis for this admission?: Yes Plan: 06/13/2019-single dose of fluconazole. QT interval is well within the normal limits and interaction with other medications for a single dose is low risk. I have also added probiotics in addition to her daily yogurt. - Time Time Spent with patient: Less than 15 minutes Medications reviewed and adjusted accordingly: Yes
[2019-06-14] MEDS: CEFEPIME 2 GM/D5W RTU 2 GM/50 ML RTUPB IV SCH ×3 (01:12→17:42)
[2019-06-14] MEDS: PANTOPRAZOLE SODIUM 40 MG TABLET.DR PO SCH ×2 (05:02→16:59)
[2019-06-14 05:23] LABS: HEMOGLOBIN 9.9 g/dL (12.0-15.5); MEAN CORPUSCULAR HEMOGLOBIN 27.1 pg (27.0-33.4); MEAN CORPUSCULAR HGB CONC 32.9 g/dL (32.0-36.0); MEAN CORPUSCULAR VOLUME 82 fl (80-97); PLATELET COUNT 293 10^3/uL (150-450); RED BLOOD COUNT 3.65 10^6/uL (3.72-5.28); WHITE BLOOD COUNT 9.7 10^3/uL (4.0-10.5)
[2019-06-14 05:40] LABS: ALKALINE PHOSPHATASE 131 U/L (38-126); ANION GAP 7 (5-19); ASPARTATE AMINO TRANSFERASE 87 U/L (14-36); BILIRUBIN,DIRECT 0.2 mg/dL (0.0-0.4); BILIRUBIN,TOTAL 0.5 mg/dL (0.2-1.3); BLOOD UREA NITROGEN 22 mg/dL (7-20); CALCIUM 8.9 mg/dL (8.4-10.2); CARBON DIOXIDE 26 mmol/L (22-30); CHLORIDE 105 mmol/L (98-107); GLUCOSE 92 mg/dL (75-110); POTASSIUM 4.8 mmol/L (3.6-5.0); TOTAL PROTEIN 6.4 g/dL (6.3-8.2)
[2019-06-14] MEDS: PROMETHAZINE HCL INJ 25 MG/1 ML VIAL IV PRN ×3 (05:55→21:11)
[2019-06-14 06:00] LABS: ERYTHROCYTE SEDIMENTATION RATE 52 mm/hr (0-20)
--- NOTE | 2019-06-14 09:29 | PDOC PROGRESS REPORT ---
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 She presents with dull retrosternal chest pain which has been present since valve replacement has developed fever and some shortness of breath prompting evaluation emergency room where she is found to have sepsis with hypotension, tachycardia, leukocytosis of 19,000, hypo-natremia hypomagnesemia hypo-kalemia and thrombocytopenia. She started on IV vancomycin and Dr. Bowen hospitalist at [facility] is consulted. 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 Subsequent cultures did not grow. [facility] is currently on regional diversion and are subsequently unable to accept her for transfer. She is referred to the hospitalist for admission. 06/04/2019. No acute events overnight. 06/05/2017. No acute events overnight. Denies any fever, chills, nausea, vomiting, diarrhea, constipation or any urinary symptoms. 06/06/2019. No acute events overnight. Continues to complain of chronic right upper quadrant abdominal pain. Denies any fever, chills, nausea, vomiting, diarrhea, constipation or any urinary symptoms. Patient is p.o. tolerant, ambulatory, having normal bowel and bladder movements. 06/07/2019. No acute events overnight. Significant improvement of abdominal pain after having a large bowel movement this morning. Patient is ambulatory, in no apparent distress, p.o. tolerant. Patient has been noted to have low blood pressure however she is asymptomatic. 06/08/2019. No acute events overnight, patient is comfortably sitting in bed, in no apparent distress, abdominal pain has improved significantly, ambulatory, p. o. tolerant, having normal bowel bladder movement, denies any fever, chills, nausea, vomiting, diarrhea, constipation or any urinary symptoms. Patient hemoglobin is 7.7 today denies any hematemesis, hemoptysis, melena, vaginal bleeding or any hematochezia. Stool guaiac has been negative. We will give 2 PRBC today. 06/09/2019. No acute events overnight. Comfortably sitting in bed enjoying her breakfast. In no apparent distress. Abdominal pain has resolved, ambulatory, having normal bladder and bowel movement. Denies any fever, chills, nausea, vomiting, diarrhea, constipation or any urinary symptoms. 06/14/2019. No acute events overnight. Comfortably sitting in bed eating ice chips, no apparent distress, alert oriented x3, denies any abdominal pain, ambulatory, p.o. tolerant, having normal bowel and bladder movements, denies any fever, chills, nausea, vomiting, diarrhea, or any urinary symptoms. Discussed with patient about the need for PICC line to come out as it was placed on 05/22/2019 and has had several positive blood cultures since then. As per ID recommendation will remove PICC line. Reason For Visit: IVDU,SEPSIS,ENDOCARDITIS Physical Exam Vital Signs: Temp Pulse Resp BP Pulse Ox 98.7 F 77 16 92/55 L 100 06/13/19 23:13 06/14/19 07:00 06/13/19 23:13 06/13/19 23:13 06/13/19 23:13 Intake & Output 06/13/19 06/14/19 06/15/19 06:59 06:59 06:59 Intake Total 1417 700 Output Total 3 1500 Balance 1414 -800 Weight 87.8 kg 87.8 kg General appearance: PRESENT: no acute distress, well-developed, well-nourished Respiratory exam: PRESENT: clear to auscultation sandrita. ABSENT: rales, rhonchi, wheezes Cardiovascular exam: PRESENT: systolic murmur GI/Abdominal exam: PRESENT: normal bowel sounds, soft. ABSENT: distended, guarding, mass, organolmegaly, rebound, tenderness Neurological exam: PRESENT: alert, awake, oriented to person, oriented to place, oriented to time, oriented to situation, CN II-XII grossly intact. ABSENT: motor sensory deficit Results Laboratory Results: 06/14/19 05:05 06/14/19 05:05 06/14/19 06/14/19 05:05 05:05 WBC 9.7 RBC 3.65 L Hgb 9.9 L Hct 30.0 L MCV 82 MCH 27.1 MCHC 32.9 RDW 19.0 H Plt Count 293 Sodium 138.0 Potassium 4.8 Chloride 105 Carbon Dioxide 26 Anion Gap 7 BUN 22 H Creatinine 0.86 Est GFR ( Amer) > 60 Glucose 92 Calcium 8.9 Magnesium 1.9 Total Bilirubin 0.5 AST 87 H Alkaline Phosphatase 131 H Total Protein 6.4 Albumin 3.0 L 05/21/19 05/22/19 05/22/19 23:07 02:06 11:00 Creatine Kinase CK-MB (CK-2) Troponin I 0.098 0.098 0.070 NT-Pro-B Natriuret Pep 05/22/19 05/22/19 05/22/19 14:00 14:35 20:04 Creatine Kinase CK-MB (CK-2) Troponin I Cancelled 0.060 0.037 NT-Pro-B Natriuret Pep 05/28/19 05/28/19 06/02/19 00:15 00:15 00:20 Creatine Kinase < 20 L < 20 L CK-MB (CK-2) 0.49 Troponin I 0.077 NT-Pro-B Natriuret Pep 06/02/19 06/02/19 06/02/19 00:20 06:15 06:15 Creatine Kinase < 20 L CK-MB (CK-2) 1.53 1.39 Troponin I 0.194 0.171 NT-Pro-B Natriuret Pep 06/02/19 06/02/19 13:30 13:30 Creatine Kinase < 20 L CK-MB (CK-2) 1.68 Troponin I 0.175 NT-Pro-B Natriuret Pep 4000 H Impressions: Chest X-Ray 05/21/19 23:04 IMPRESSION: 1. No acute pulmonary findings. 2. Previous sternotomy Guidance Fluoroscopy 05/22/19 00:00 IMPRESSION: SUCCESSFUL PLACEMENT OF A 5 FR DUAL LUMEN 39 CM PICC IN THE LEFT BASILIC VEIN. Interventional Vascular Procedure 05/22/19 00:00 IMPRESSION: SUCCESSFUL PLACEMENT OF A 5 FR DUAL LUMEN 39 CM PICC IN THE LEFT BASILIC VEIN. PICC Line Insertion 05/22/19 00:00 IMPRESSION: SUCCESSFUL PLACEMENT OF A 5 FR DUAL LUMEN 39 CM PICC IN THE LEFT BASILIC VEIN. Abdomen Ultrasound 05/28/19 00:00 IMPRESSION: Mild splenomegaly. No acute findings otherwise. Abdomen/Pelvis CT 06/06/19 00:00 IMPRESSION: 1. Gastric distention and debris. Ileus. Constipation. 2. Normal appendix. No acute abdominopelvic abnormality. Assessment and Plan - Diagnosis (1) Endocarditis Qualifiers: Endocarditis type: infective Is this a current diagnosis for this admission?: Yes Plan: 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 Status post tricuspid valve replacement September 2018 at [facility]. 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 Presented to ED with dull retrosternal chest pain which has been present since valve replacement. Was a started started on IV vancomycin by Dr. Bowen hospitalist at [facility]. 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 [facility] on regional diversion at the admission time and was [facility]. 05/21/2019. TTE LVEF 60%. No thrombus or vegetations noted. Severe tricuspid regurgitation. RSVP 48 to 53 mmHg.05/27/2019 Started on empiric broad-spectrum IV antibiotics. PICC line placed on 05/22/2018 on the left basilic vein. PICC line removed 06/14/2019 as per ID recommendation. Please refer to note. Multiple positive blood cultures for pseudomonas aeruginosa. Last negative blood culture 05/31/2019. Last negative blood culture 05/31/2019. Day 23 IV antibiotics. Day 15/56 of IV antibiotics. Day 18 IV cefepime. Received 10 days of IV levofloxacin. Switch to ciprofloxacin IV as per ID recommendation. Day 5 IV ciprofloxacin 150 mg p.o. twice daily. I have been informed that [facility] will be able to do SANJU starting early June. Patient has stable and receiving IV antibiotics SANJU can wait until early June if not will call [facility] again for transfer for SANJU. 06/09/2019. Infectious disease consulted. Recommendations noted. Please refer to note. Unfortunately patient has a drug abuse and could not be sent home on IV antibiotics. 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 Status post tricuspid valve replacement September 2018 at [facility]. Presented to ED with dull retrosternal chest pain which has been present since valve replacement. Was a started started on IV vancomycin by Dr. Bowen hospitalist at [facility]. 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 [facility] on regional diversion at the admission time and was admitted here [facility]. 05/21/2019. TTE LVEF 60%. No thrombus or vegetations noted. Severe tricuspid regurgitation. RSVP 48 to 53 mmHg.05/27/2019 Started on empiric broad-spectrum IV antibiotics. PICC line placed on 05/22/2018 on the left basilic vein. PICC line removed on 06/14/2019 as per ID recommendation. Multiple positive blood cultures for pseudomonas aeruginosa. Last negative blood culture 05/31/2019. Plan as per #1 (3) IV drug abuse Is this a current diagnosis for this admission?: Yes Plan: Persistent IV drug abuse. Was a started on Subutex 05/27/2019. Was encouraged to rehab admission one day before discharge. Continue Subutex. (4) Abdominal pain Qualifiers: Abdominal location: generalized Qualified Code(s): R10.84 - Generalized abdominal pain Is this a current diagnosis for this admission?: Yes Plan: Resolved. CT abdomen pelvis 06/06/2019 found no acute findings except for severe constipation. History of cholecystectomy. History of hepatitis C. History of hepatic steatosis. Lipase WNL. Continue beta-blockers and supportive measures. Continue bowel regimen. Encourage ambulation and high-fiber diet. (5) Anemia Qualifiers: Anemia type: iron deficiency Iron deficiency anemia type: unspecified iron deficiency Qualified Code(s): D50.9 - Iron deficiency anemia, unspecified Is this a current diagnosis for this admission?: Yes Plan: Microcytic. Likely combination of anemia of chronic disease and iron deficiency anemia. Hemoglobin is 9.9 today. Denies any easy bleeding, nosebleeds, hematemesis, hemoptysis, hematochezia, vaginal bleeding or melena. 05/30/2019. Iron panel. Serum iron 18.8, TIBC 270, saturation 7%, ferritin 213, folate 5.53, B12 folate 306, 06/08/2019. Status post 2 PRBC transfusion. Daily H&H, monitor for bleeding, supportive transfusions, ferrous sulfate.
[2019-06-14] MEDS: LACTOBACILLUS ACIDOPHILUS 250 MG TAB PO SCH ×2 (10:14→17:47)
[2019-06-14] MEDS: BUPRENORPHINE HCL 2 MG SUBLINGUAL TABLET SL SCH ×2 (10:14→21:12)
[2019-06-14] MEDS: GABAPENTIN 300 MG CAPSULE PO SCH ×2 (10:15→17:42)
[2019-06-14] MEDS: METOPROLOL TARTRATE 25 MG TABLET PO SCH ×2 (10:15→21:13)
[2019-06-14] MEDS: FERROUS SULFATE 325 MG TABLET PO SCH ×2 (10:16→17:41)
[2019-06-14] MEDS: ASCORBIC ACID 500 MG TABLET PO SCH ×2 (10:16→17:42)
[2019-06-14] MEDS: DOCUSATE SODIUM 100 MG CAPSULE PO SCH ×2 (10:17→17:47)
[2019-06-14] MEDS: CIPROFLOXACIN HCL 750 MG TABLET PO SCH ×2 (10:17→21:12)
[2019-06-14] MEDS: DULOXETINE HCL 20 MG CAPSULE.DR PO SCH ×2 (10:17→17:48)
[2019-06-14] MEDS: NORMAL SALINE 10 ML SDV (SCHEDULED) IV SCH ×2 (10:18→21:14)
[2019-06-14] MEDS: NICOTINE 14 MG/24 HR PATCH.TD24 TD SCH (10:18)
[2019-06-14] MEDS: MIDODRINE HCL 5 MG TABLET PO SCH ×3 (10:19→17:48)
[2019-06-14] MEDS: CARBOXYMETHYLCELLULOSE SOD 0.5% 0.4 ML DROPERETTE OU PRN (21:11)
[2019-06-14] MEDS: TRAMADOL HCL 50 MG TABLET PO PRN (21:12)
[2019-06-14] MEDS: ATORVASTATIN CALCIUM 40 MG TABLET PO SCH (21:13)
[2019-06-15] MEDS: CEFEPIME 2 GM/D5W RTU 2 GM/50 ML RTUPB IV SCH ×3 (02:13→17:51)
[2019-06-15] MEDS: PANTOPRAZOLE SODIUM 40 MG TABLET.DR PO SCH ×2 (06:41→17:50)
[2019-06-15] MEDS: TRAMADOL HCL 50 MG TABLET PO PRN (06:41)
[2019-06-15] MEDS: PROMETHAZINE HCL INJ 25 MG/1 ML VIAL IV PRN (07:26)
[2019-06-15] MEDS: DULOXETINE HCL 20 MG CAPSULE.DR PO SCH ×2 (09:52→17:39)
[2019-06-15] MEDS: DOCUSATE SODIUM 100 MG CAPSULE PO SCH ×2 (09:52→17:39)
[2019-06-15] MEDS: NORMAL SALINE 10 ML SDV (SCHEDULED) IV SCH ×2 (09:53→22:29)
[2019-06-15] MEDS: NICOTINE 14 MG/24 HR PATCH.TD24 TD SCH (09:53)
[2019-06-15] MEDS: METOPROLOL TARTRATE 25 MG TABLET PO SCH (09:57)
[2019-06-15] MEDS: LACTOBACILLUS ACIDOPHILUS 250 MG TAB PO SCH ×2 (09:57→17:50)
[2019-06-15] MEDS: ASCORBIC ACID 500 MG TABLET PO SCH ×2 (09:57→17:51)
[2019-06-15] MEDS: CIPROFLOXACIN HCL 750 MG TABLET PO SCH ×2 (09:57→22:33)
[2019-06-15] MEDS: FERROUS SULFATE 325 MG TABLET PO SCH ×2 (09:57→17:50)
[2019-06-15] MEDS: BUPRENORPHINE HCL 2 MG SUBLINGUAL TABLET SL SCH ×2 (09:58→22:33)
[2019-06-15] MEDS: GABAPENTIN 300 MG CAPSULE PO SCH ×2 (09:59→17:51)
[2019-06-15] MEDS: MIDODRINE HCL 5 MG TABLET PO SCH ×3 (09:59→17:51)
[2019-06-15] MEDS: PROMETHAZINE HCL 25 MG TABLET PO PRN ×2 (12:19→22:38)
[2019-06-15] MEDS: LISINOPRIL 5 MG TABLET PO SCH (13:59)
--- NOTE | 2019-06-15 14:33 | PDOC PROGRESS REPORT ---
Subjective Progress Note for:: 06/15/19 Subjective:: HONEY GRESHAM is a 43 year old female with a past medical history of persistent IV drug use, endocarditis, status post tricuspid valve replacement September 2018 at [facility]. She presents with dull retrosternal chest pain which has been present since valve replacement has developed fever and some shortness of breath prompting evaluation emergency room where she is found to have sepsis with hypotension, tachycardia, leukocytosis of 19,000, hypo-natremia hypomagnesemia hypo-kalemia and thrombocytopenia. She started on IV vancomycin and Dr. Bowen hospitalist at [facility] is consulted. 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 Subsequent cultures did not grow. [facility] is currently on regional diversion and are subsequently unable to accept her for transfer. She is referred to the hospitalist for admission. 06/04/2019. No acute events overnight. 06/05/2017. No acute events overnight. Denies any fever, chills, nausea, vomiting, diarrhea, constipation or any urinary symptoms. 06/06/2019. No acute events overnight. Continues to complain of chronic right upper quadrant abdominal pain. Denies any fever, chills, nausea, vomiting, diarrhea, constipation or any urinary symptoms. Patient is p.o. tolerant, ambulatory, having normal bowel and bladder movements. 06/07/2019. No acute events overnight. Significant improvement of abdominal pain after having a large bowel movement this morning. Patient is ambulatory, in no apparent distress, p.o. tolerant. Patient has been noted to have low blood pressure however she is asymptomatic. 06/08/2019. No acute events overnight, patient is comfortably sitting in bed, in no apparent distress, abdominal pain has improved significantly, ambulatory, p. o. tolerant, having normal bowel bladder movement, denies any fever, chills, nausea, vomiting, diarrhea, constipation or any urinary symptoms. Patient hemoglobin is 7.7 today denies any hematemesis, hemoptysis, melena, vaginal bleeding or any hematochezia. Stool guaiac has been negative. We will give 2 PRBC today. 06/09/2019. No acute events overnight. Comfortably sitting in bed enjoying her breakfast. In no apparent distress. Abdominal pain has resolved, ambulatory, having normal bladder and bowel movement. Denies any fever, chills, nausea, vomiting, diarrhea, constipation or any urinary symptoms. 06/14/2019. No acute events overnight. Comfortably sitting in bed eating ice chips, no apparent distress, alert oriented x3, denies any abdominal pain, ambulatory, p.o. tolerant, having normal bowel and bladder movements, denies any fever, chills, nausea, vomiting, diarrhea, or any urinary symptoms. Discussed with patient about the need for PICC line to come out as it was placed on 05/22/2019 and has had several positive blood cultures since then. As per ID recommendation will remove PICC line. 06/15/2019. No acute events overnight. Comfortably sitting in bed enjoying her breakfast. Alert oriented x3, denies any fever, chills, nausea, vomiting, diarrhea, constipation or any urinary symptoms. PICC line removed on 06/14/2019. PICC line tip has been sent to culture. Reason For Visit: IVDU,SEPSIS,ENDOCARDITIS Physical Exam Vital Signs: Temp Pulse Resp BP Pulse Ox 97.9 F 71 16 113/66 100 06/15/19 08:30 06/15/19 08:30 06/15/19 08:30 06/15/19 08:30 06/15/19 08:30 Intake & Output 06/14/19 06/15/19 06/16/19 06:59 06:59 06:59 Intake Total 700 1806 Output Total 1500 Balance -800 1806 Weight 87.8 kg 89.8 kg General appearance: PRESENT: no acute distress, well-developed, well-nourished Head exam: PRESENT: atraumatic, normocephalic Respiratory exam: PRESENT: clear to auscultation sandrita. ABSENT: rales, rhonchi, wheezes Cardiovascular exam: PRESENT: RRR. ABSENT: diastolic murmur, rubs, systolic murmur GI/Abdominal exam: PRESENT: normal bowel sounds, soft. ABSENT: distended, guarding, mass, organolmegaly, rebound, tenderness Neurological exam: PRESENT: alert, awake, oriented to person, oriented to place, oriented to time, oriented to situation, CN II-XII grossly intact. ABSENT: motor sensory deficit Results Laboratory Results: 06/14/19 05:05 06/14/19 05:05 05/21/19 05/22/19 05/22/19 23:07 02:06 11:00 Creatine Kinase CK-MB (CK-2) Troponin I 0.098 0.098 0.070 NT-Pro-B Natriuret Pep 05/22/19 05/22/19 05/22/19 14:00 14:35 20:04 Creatine Kinase CK-MB (CK-2) Troponin I Cancelled 0.060 0.037 NT-Pro-B Natriuret Pep 05/28/19 05/28/19 06/02/19 00:15 00:15 00:20 Creatine Kinase < 20 L < 20 L CK-MB (CK-2) 0.49 Troponin I 0.077 NT-Pro-B Natriuret Pep 06/02/19 06/02/19 06/02/19 00:20 06:15 06:15 Creatine Kinase < 20 L CK-MB (CK-2) 1.53 1.39 Troponin I 0.194 0.171 NT-Pro-B Natriuret Pep 06/02/19 06/02/19 13:30 13:30 Creatine Kinase < 20 L CK-MB (CK-2) 1.68 Troponin I 0.175 NT-Pro-B Natriuret Pep 4000 H Impressions: Chest X-Ray 05/21/19 23:04 IMPRESSION: 1. No acute pulmonary findings. 2. Previous sternotomy Guidance Fluoroscopy 05/22/19 00:00 IMPRESSION: SUCCESSFUL PLACEMENT OF A 5 FR DUAL LUMEN 39 CM PICC IN THE LEFT BASILIC VEIN. Interventional Vascular Procedure 05/22/19 00:00 IMPRESSION: SUCCESSFUL PLACEMENT OF A 5 FR DUAL LUMEN 39 CM PICC IN THE LEFT BASILIC VEIN. PICC Line Insertion 05/22/19 00:00 IMPRESSION: SUCCESSFUL PLACEMENT OF A 5 FR DUAL LUMEN 39 CM PICC IN THE LEFT BASILIC VEIN. Abdomen Ultrasound 05/28/19 00:00 IMPRESSION: Mild splenomegaly. No acute findings otherwise. Abdomen/Pelvis CT 06/06/19 00:00 IMPRESSION: 1. Gastric distention and debris. Ileus. Constipation. 2. Normal appendix. No acute abdominopelvic abnormality. Assessment and Plan - Diagnosis (1) Endocarditis Qualifiers: Endocarditis type: infective Is this a current diagnosis for this admission?: Yes Plan: 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 Status post tricuspid valve replacement September 2018 at [facility]. 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 Presented to ED with dull retrosternal chest pain which has been present since valve replacement. Was a started started on IV vancomycin by Dr. Bowen hospitalist at [facility]. 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 [facility] on regional diversion at the admission time and was admitted here at [facility]. 05/21/2019. TTE LVEF 60%. No thrombus or vegetations noted. Severe tricuspid regurgitation. RSVP 48 to 53 mmHg.05/27/2019 Started on empiric broad-spectrum IV antibiotics. PICC line placed on 05/22/2018 on the left basilic vein. PICC line removed 06/14/2019 as per ID recommendation. Please refer to note. Multiple positive blood cultures for pseudomonas aeruginosa. Last negative bl ood culture 05/31/2019. Last negative blood culture 05/31/2019. Day 24 IV antibiotics. Day 16 of IV antibiotics. Day 18 IV cefepime. Received 10 days of IV levofloxacin. Switch to ciprofloxacin IV as per ID recommendation. Day 6 IV ciprofloxacin 150 mg p.o. twice daily. I have been informed that [facility] will be able to do SANJU starting early June. Patient has stable and receiving IV antibiotics SANJU can wait until early June if not will call [facility] again for transfer for SANJU. 06/09/2019. Infectious disease consulted. Recommendations noted. Please refer to note. Unfortunately patient has a drug abuse and could not be sent home on IV antibiotics. 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 Status post tricuspid valve replacement September 2018 at [facility]. Presented to ED with dull retrosternal chest pain which has been present since valve replacement. Was a started started on IV vancomycin by Dr. Bowen hospitalist at [facility]. 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 [facility] on regional diversion at the admission time and was admitted here at [facility]. 05/21/2019. TTE LVEF 60%. No thrombus or vegetations noted. Severe tricuspid regurgitation. RSVP 48 to 53 mmHg.05/27/2019 Started on empiric broad-spectrum IV antibiotics. PICC line placed on 05/22/2018 on the left basilic vein. PICC line removed on 06/14/2019 as per ID recommendation. PICC line tip sent to culture. Multiple positive blood cultures for pseudomonas aeruginosa. Last negative blood culture 05/31/2019. Plan as per #1 (3) IV drug abuse Is this a current diagnosis for this admission?: Yes Plan: Persistent IV drug abuse. Unfortunately patient seems to be abusing drugs while in the hospital. At times patient seems to be too sleepy. UDS on 06/08/2019 for back positive for opiates. Which was confirmed as morphine. Only on Subutex and tramadol in the hospital. Patient was advised on abstinence from recreational drug abuse. Currently on on Subutex since 05/27/2019 and tramadol. Was encouraged to rehab admission one day before discharge. (4) Abdominal pain Qualifiers: Abdominal location: generalized Qualified Code(s): R10.84 - Generalized abdominal pain Is this a current diagnosis for this admission?: Yes Plan: Resolved. CT abdomen pelvis 06/06/2019 found no acute findings except for severe constipation. History of cholecystectomy. History of hepatitis C. History of hepatic steatosis. Lipase WNL. Continue beta-blockers and supportive measures. Continue bowel regimen. Encourage ambulation and high-fiber diet. (5) Anemia Qualifiers: Anemia type: iron deficiency Iron deficiency anemia type: unspecified iron deficiency Qualified Code(s): D50.9 - Iron deficiency anemia, unspecified Is this a current diagnosis for this admission?: Yes Plan: Microcytic. Likely combination of anemia of chronic disease and iron deficiency anemia. Hemoglobin is 9.9 today. Denies any easy bleeding, nosebleeds, hematemesis, hemoptysis, hematochezia, vaginal bleeding or melena. 05/30/2019. Iron panel. Serum iron 18.8, TIBC 270, saturation 7%, ferritin 213, folate 5.53, B12 folate 306, 06/08/2019. Status post 2 PRBC transfusion. Daily H&H, monitor for bleeding, supportive transfusions, ferrous sulfate.
[2019-06-15] MEDS: ATORVASTATIN CALCIUM 40 MG TABLET PO SCH (22:33)
[2019-06-16] MEDS: CEFEPIME 2 GM/D5W RTU 2 GM/50 ML RTUPB IV SCH ×3 (02:38→18:14)
[2019-06-16] MEDS: PANTOPRAZOLE SODIUM 40 MG TABLET.DR PO SCH ×2 (05:46→18:19)
[2019-06-16] MEDS: LISINOPRIL 5 MG TABLET PO SCH (10:25)
[2019-06-16] MEDS: METOPROLOL SUCCINATE 25 MG TAB.SR.24H PO SCH (10:25)
[2019-06-16] MEDS: LACTOBACILLUS ACIDOPHILUS 250 MG TAB PO SCH ×2 (10:26→18:18)
[2019-06-16] MEDS: FERROUS SULFATE 325 MG TABLET PO SCH ×2 (10:26→18:19)
[2019-06-16] MEDS: CIPROFLOXACIN HCL 750 MG TABLET PO SCH ×2 (10:26→21:19)
[2019-06-16] MEDS: GABAPENTIN 300 MG CAPSULE PO SCH ×2 (10:26→18:19)
[2019-06-16] MEDS: ASCORBIC ACID 500 MG TABLET PO SCH ×2 (10:26→18:19)
[2019-06-16] MEDS: MIDODRINE HCL 5 MG TABLET PO SCH ×3 (10:31→18:17)
[2019-06-16] MEDS: BUPRENORPHINE HCL 2 MG SUBLINGUAL TABLET SL SCH ×2 (10:32→21:20)
[2019-06-16] MEDS: TRAMADOL HCL 50 MG TABLET PO PRN ×2 (10:53→18:13)
[2019-06-16] MEDS: PROMETHAZINE HCL 25 MG TABLET PO PRN ×2 (10:54→18:13)
[2019-06-16] MEDS: DOCUSATE SODIUM 100 MG CAPSULE PO SCH ×2 (11:06→18:00)
[2019-06-16] MEDS: DULOXETINE HCL 20 MG CAPSULE.DR PO SCH ×2 (11:06→18:01)
[2019-06-16] MEDS: NORMAL SALINE 10 ML SDV (SCHEDULED) IV SCH ×2 (11:07→21:20)
[2019-06-16] MEDS: NICOTINE 14 MG/24 HR PATCH.TD24 TD SCH (11:08)
--- NOTE | 2019-06-16 16:56 | PDOC PROGRESS REPORT ---
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 She presents with dull retrosternal chest pain which has been present since valve replacement has developed fever and some shortness of breath prompting evaluation emergency room where she is found to have sepsis with hypotension, tachycardia, leukocytosis of 19,000, hypo-natremia hypomagnesemia hypo-kalemia and thrombocytopenia. She started on IV vancomycin and Dr. Bowen hospitalist at [facility] is consulted. 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 Subsequent cultures did not grow. [facility] is currently on regional diversion and are subsequently unable to accept her for transfer. She is referred to the hospitalist for admission. 06/04/2019. No acute events overnight. 06/05/2017. No acute events overnight. Denies any fever, chills, nausea, vomiting, diarrhea, constipation or any urinary symptoms. 06/06/2019. No acute events overnight. Continues to complain of chronic right upper quadrant abdominal pain. Denies any fever, chills, nausea, vomiting, diarrhea, constipation or any urinary symptoms. Patient is p.o. tolerant, ambulatory, having normal bowel and bladder movements. 06/07/2019. No acute events overnight. Significant improvement of abdominal pain after having a large bowel movement this morning. Patient is ambulatory, in no apparent distress, p.o. tolerant. Patient has been noted to have low blood pressure however she is asymptomatic. 06/08/2019. No acute events overnight, patient is comfortably sitting in bed, in no apparent distress, abdominal pain has improved significantly, ambulatory, p. o. tolerant, having normal bowel bladder movement, denies any fever, chills, nausea, vomiting, diarrhea, constipation or any urinary symptoms. Patient hemoglobin is 7.7 today denies any hematemesis, hemoptysis, melena, vaginal bleeding or any hematochezia. Stool guaiac has been negative. We will give 2 PRBC today. 06/09/2019. No acute events overnight. Comfortably sitting in bed enjoying her breakfast. In no apparent distress. Abdominal pain has resolved, ambulatory, having normal bladder and bowel movement. Denies any fever, chills, nausea, vomiting, diarrhea, constipation or any urinary symptoms. 06/14/2019. No acute events overnight. Comfortably sitting in bed eating ice chips, no apparent distress, alert oriented x3, denies any abdominal pain, ambulatory, p.o. tolerant, having normal bowel and bladder movements, denies any fever, chills, nausea, vomiting, diarrhea, or any urinary symptoms. Discussed with patient about the need for PICC line to come out as it was placed on 05/22/2019 and has had several positive blood cultures since then. As per ID recommendation will remove PICC line. 06/15/2019. No acute events overnight. Comfortably sitting in bed enjoying her breakfast. Alert oriented x3, denies any fever, chills, nausea, vomiting, diarrhea, constipation or any urinary symptoms. PICC line removed on 06/14/2019. PICC line tip has been sent to culture. 06/16/2019. No acute events overnight. Comfortably sitting in bed enjoying her breakfast. Alert oriented x3, denies any fever, chills, nausea, vomiting, diarrhea, constipation or any urinary symptoms. Reason For Visit: IVDU,SEPSIS,ENDOCARDITIS Physical Exam Vital Signs: Temp Pulse Resp BP Pulse Ox 98.5 F 76 16 97/57 L 99 06/16/19 11:53 06/16/19 11:53 06/16/19 11:53 06/16/19 11:53 06/16/19 11:53 Intake & Output 06/15/19 06/16/19 06/17/19 06:59 06:59 06:59 Intake Total 1806 916 716 Balance 1806 916 716 Weight 89.8 kg 89.8 kg General appearance: PRESENT: obese Respiratory exam: PRESENT: clear to auscultation sandrita. ABSENT: rales, rhonchi, wheezes Cardiovascular exam: PRESENT: systolic murmur GI/Abdominal exam: PRESENT: normal bowel sounds, soft. ABSENT: distended, guarding, mass, organolmegaly, rebound, tenderness Extremities exam: PRESENT: full ROM. ABSENT: calf tenderness, clubbing, pedal edema Neurological exam: PRESENT: alert, awake, oriented to person, oriented to place, oriented to time, oriented to situation, CN II-XII grossly intact. ABSENT: motor sensory deficit Results Laboratory Results: 06/14/19 05:05 06/14/19 05:05 05/21/19 05/22/19 05/22/19 23:07 02:06 11:00 Creatine Kinase CK-MB (CK-2) Troponin I 0.098 0.098 0.070 NT-Pro-B Natriuret Pep 05/22/19 05/22/19 05/22/19 14:00 14:35 20:04 Creatine Kinase CK-MB (CK-2) Troponin I Cancelled 0.060 0.037 NT-Pro-B Natriuret Pep 05/28/19 05/28/19 06/02/19 00:15 00:15 00:20 Creatine Kinase < 20 L < 20 L CK-MB (CK-2) 0.49 Troponin I 0.077 NT-Pro-B Natriuret Pep 06/02/19 06/02/19 06/02/19 00:20 06:15 06:15 Creatine Kinase < 20 L CK-MB (CK-2) 1.53 1.39 Troponin I 0.194 0.171 NT-Pro-B Natriuret Pep 06/02/19 06/02/19 13:30 13:30 Creatine Kinase < 20 L CK-MB (CK-2) 1.68 Troponin I 0.175 NT-Pro-B Natriuret Pep 4000 H Impressions: Chest X-Ray 05/21/19 23:04 IMPRESSION: 1. No acute pulmonary findings. 2. Previous sternotomy Guidance Fluoroscopy 05/22/19 00:00 IMPRESSION: SUCCESSFUL PLACEMENT OF A 5 FR DUAL LUMEN 39 CM PICC IN THE LEFT BASILIC VEIN. Interventional Vascular Procedure 05/22/19 00:00 IMPRESSION: SUCCESSFUL PLACEMENT OF A 5 FR DUAL LUMEN 39 CM PICC IN THE LEFT BASILIC VEIN. PICC Line Insertion 05/22/19 00:00 IMPRESSION: SUCCESSFUL PLACEMENT OF A 5 FR DUAL LUMEN 39 CM PICC IN THE LEFT BASILIC VEIN. Abdomen Ultrasound 05/28/19 00:00 IMPRESSION: Mild splenomegaly. No acute findings otherwise. Abdomen/Pelvis CT 06/06/19 00:00 IMPRESSION: 1. Gastric distention and debris. Ileus. Constipation. 2. Normal appendix. No acute abdominopelvic abnormality. Assessment and Plan - Diagnosis (1) Endocarditis Qualifiers: Endocarditis type: infective Is this a current diagnosis for this admission?: Yes Plan: 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 Status post tricuspid valve replacement September 2018 at [facility]. 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 Presented to ED with dull retrosternal chest pain which has been present since valve replacement. Was a started started on IV vancomycin by Dr. Bowen hospitalist at [facility]. 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 [facility] on regional diversion at the admission time and was admitted here at [facility]. 05/21/2019. TTE LVEF 60%. No thrombus or vegetations noted. Severe tricuspid regurgitation. RSVP 48 to 53 mmHg.05/27/2019 Started on empiric broad-spectrum IV antibiotics. PICC line placed on 05/22/2018 on the left basilic vein. PICC line removed 06/14/2019 as per ID recommendation. Please refer to note. Multiple positive blood cultures for pseudomonas aeruginosa. Last negative blood culture 05/31/2019. Last negative blood culture 05/31/2019. Day 25 IV antibiotics. Day 17/56 of IV antibiotics. Day 19 IV cefepime. Received 10 days of IV levofloxacin. Switch to ciprofloxacin IV as per ID recommendation. Day 7 IV ciprofloxacin 150 mg p.o. twice daily. I have been informed that [facility] will be able to do SANJU starting early June. Patient has stable and receiving IV antibiotics SANJU can wait until early June if not [facility]JU. 06/09/2019. Infectious disease consulted. Recommendations noted. Please refer to note. Unfortunately patient has a drug abuse and could not be sent home on IV antibiotics. 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 Status post tricuspid valve replacement September 2018 at [facility]. Presented to ED with dull retrosternal chest pain which has been present since valve replacement. Was a started started on IV vancomycin by Dr. Bowen hospitalist at [facility]. 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 [facility] on regional diversion at the admission time and was admitted here at [facility]. 05/21/2019. TTE LVEF 60%. No thrombus or vegetations noted. Severe tricuspid regurgitation. RSVP 48 to 53 mmHg.05/27/2019 Started on empiric broad-spectrum IV antibiotics. PICC line placed on 05/22/2018 on the left basilic vein. PICC line removed on 06/14/2019 as per ID recommendation. PICC line tip sent to culture. Multiple positive blood cultures for pseudomonas aeruginosa. Last negative blood culture 05/31/2019. Plan as per #1 (3) IV drug abuse Is this a current diagnosis for this admission?: Yes Plan: Persistent IV drug abuse. Unfortunately patient seems to be abusing drugs while in the hospital. At times patient seems to be too sleepy. UDS on 06/08/2019 for back positive for opiates. Which was confirmed as morphine. Only on Subutex and tramadol in the hospital. Patient was advised on abstinence from recreational drug abuse. Currently on on Subutex since 05/27/2019 and tramadol. Was encouraged to rehab admission one day before discharge. (4) Abdominal pain Qualifiers: Abdominal location: generalized Qualified Code(s): R10.84 - Generalized abdominal pain Is this a current diagnosis for this admission?: Yes Plan: Resolved. CT abdomen pelvis 06/06/2019 found no acute findings except for severe constipation. History of cholecystectomy. History of hepatitis C. History of hepatic steatosis. Lipase WNL. Continue beta-blockers and supportive measures. Continue bowel regimen. Encourage ambulation and high-fiber diet. (5) Anemia Qualifiers: Anemia type: iron deficiency Iron deficiency anemia type: unspecified iron deficiency Qualified Code(s): D50.9 - Iron deficiency anemia, unspecified Is this a current diagnosis for this admission?: Yes Plan: Microcytic. Likely combination of anemia of chronic disease and iron deficiency anemia. Hemoglobin is 9.9 today. Denies any easy bleeding, nosebleeds, hematemesis, hemoptysis, hematochezia, vaginal bleeding or melena. 05/30/2019. Iron panel. Serum iron 18.8, TIBC 270, saturation 7%, ferritin 213, folate 5.53, B12 folate 306, 06/08/2019. Status post 2 PRBC transfusion. Daily H&H, monitor for bleeding, supportive transfusions, ferrous sulfate.
[2019-06-16 18:50] LABS: ANION GAP 9 (5-19); BLOOD UREA NITROGEN 18 mg/dL (7-20); CALCIUM 8.7 mg/dL (8.4-10.2); CARBON DIOXIDE 27 mmol/L (22-30); CHLORIDE 102 mmol/L (98-107); GLUCOSE 106 mg/dL (75-110); POTASSIUM 4.1 mmol/L (3.6-5.0)
[2019-06-16] MEDS: ATORVASTATIN CALCIUM 40 MG TABLET PO SCH (21:19)
[2019-06-17] MEDS: PROMETHAZINE HCL 25 MG TABLET PO PRN ×3 (01:11→22:02)
[2019-06-17] MEDS: TRAMADOL HCL 50 MG TABLET PO PRN ×3 (01:11→18:15)
[2019-06-17] MEDS: CEFEPIME 2 GM/D5W RTU 2 GM/50 ML RTUPB IV SCH ×3 (01:13→17:48)
[2019-06-17] MEDS: PANTOPRAZOLE SODIUM 40 MG TABLET.DR PO SCH ×2 (06:28→17:56)
[2019-06-17] MEDS: ASCORBIC ACID 500 MG TABLET PO SCH ×2 (09:50→17:50)
[2019-06-17] MEDS: CIPROFLOXACIN HCL 750 MG TABLET PO SCH ×2 (09:50→22:03)
[2019-06-17] MEDS: FERROUS SULFATE 325 MG TABLET PO SCH ×2 (09:50→17:55)
[2019-06-17] MEDS: GABAPENTIN 300 MG CAPSULE PO SCH ×2 (09:50→17:55)
[2019-06-17] MEDS: BUPRENORPHINE HCL 2 MG SUBLINGUAL TABLET SL SCH ×2 (09:51→22:02)
[2019-06-17] MEDS: MIDODRINE HCL 5 MG TABLET PO SCH ×2 (09:51→17:55)
[2019-06-17] MEDS: LACTOBACILLUS ACIDOPHILUS 250 MG TAB PO SCH ×2 (09:51→17:50)
[2019-06-17] MEDS: LISINOPRIL 5 MG TABLET PO SCH (10:20)
[2019-06-17] MEDS: DULOXETINE HCL 20 MG CAPSULE.DR PO SCH ×2 (10:42→18:10)
[2019-06-17] MEDS: NORMAL SALINE 10 ML SDV (SCHEDULED) IV SCH ×2 (10:42→22:03)
[2019-06-17] MEDS: DOCUSATE SODIUM 100 MG CAPSULE PO SCH ×2 (10:42→18:10)
[2019-06-17] MEDS: NICOTINE 14 MG/24 HR PATCH.TD24 TD SCH (10:42)
[2019-06-17] MEDS: METOPROLOL SUCCINATE 25 MG TAB.SR.24H PO SCH (10:50)
[2019-06-17] MEDS: OXYCODONE-ACETAMINOPHEN 5-325 MG TABLET PO PRN ×2 (11:37→22:02)
--- NOTE | 2019-06-17 13:50 | PDOC PROGRESS REPORT ---
Subjective Progress Note for:: 06/17/19 Subjective:: HONEY GRESHAM is a 43 year old female with a past medical history of persistent IV drug use, endocarditis, status post tricuspid valve replacement September 2018 at [facility]. She presents with dull retrosternal chest pain which has been present since valve replacement has developed fever and some shortness of breath prompting evaluation emergency room where she is found to have sepsis with hypotension, tachycardia, leukocytosis of 19,000, hypo-natremia hypomagnesemia hypo-kalemia and thrombocytopenia. She started on IV vancomycin and Dr. Bowen hospitalist at [facility] is consulted. 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 Subsequent cultures did not grow. [facility] is currently on regional diversion and are subsequently unable to accept her for transfer. She is referred to the hospitalist for admission. 06/04/2019. No acute events overnight. 06/05/2017. No acute events overnight. Denies any fever, chills, nausea, vomiting, diarrhea, constipation or any urinary symptoms. 06/06/2019. No acute events overnight. Continues to complain of chronic right upper quadrant abdominal pain. Denies any fever, chills, nausea, vomiting, diarrhea, constipation or any urinary symptoms. Patient is p.o. tolerant, ambulatory, having normal bowel and bladder movements. 06/07/2019. No acute events overnight. Significant improvement of abdominal pain after having a large bowel movement this morning. Patient is ambulatory, in no apparent distress, p.o. tolerant. Patient has been noted to have low blood pressure however she is asymptomatic. 06/08/2019. No acute events overnight, patient is comfortably sitting in bed, in no apparent distress, abdominal pain has improved significantly, ambulatory, p. o. tolerant, having normal bowel bladder movement, denies any fever, chills, nausea, vomiting, diarrhea, constipation or any urinary symptoms. Patient hemoglobin is 7.7 today denies any hematemesis, hemoptysis, melena, vaginal bleeding or any hematochezia. Stool guaiac has been negative. We will give 2 PRBC today. 06/09/2019. No acute events overnight. Comfortably sitting in bed enjoying her breakfast. In no apparent distress. Abdominal pain has resolved, ambulatory, having normal bladder and bowel movement. Denies any fever, chills, nausea, vomiting, diarrhea, constipation or any urinary symptoms. 06/14/2019. No acute events overnight. Comfortably sitting in bed eating ice chips, no apparent distress, alert oriented x3, denies any abdominal pain, ambulatory, p.o. tolerant, having normal bowel and bladder movements, denies any fever, chills, nausea, vomiting, diarrhea, or any urinary symptoms. Discussed with patient about the need for PICC line to come out as it was placed on 05/22/2019 and has had several positive blood cultures since then. As per ID recommendation will remove PICC line. 06/15/2019. No acute events overnight. Comfortably sitting in bed enjoying her breakfast. Alert oriented x3, denies any fever, chills, nausea, vomiting, diarrhea, constipation or any urinary symptoms. PICC line removed on 06/14/2019. PICC line tip has been sent to culture. 06/16/2019. No acute events overnight. Comfortably sitting in bed enjoying her breakfast. Alert oriented x3, denies any fever, chills, nausea, vomiting, diarrhea, constipation or any urinary symptoms. 06/17/2018. No acute events overnight. Resting in bed. Complaining bed. Complaining of chronic back pain, alert oriented x3, denies any fever, chills, nausea, vomiting, diarrhea, constipation or any urinary symptoms. Reason For Visit: IV DRUG ABUSE,SEPSIS,ENDOCARDITIS Physical Exam Vital Signs: Temp Pulse Resp BP Pulse Ox 97.5 F 78 15 100/54 L 99 06/16/19 23:21 06/17/19 07:00 06/16/19 23:21 06/17/19 09:53 06/16/19 23:21 Intake & Output 06/16/19 06/17/19 06/18/19 06:59 06:59 06:59 Intake Total 916 1298 50 Output Total 4 Balance 916 1294 50 Weight 89.8 kg 90.2 kg General appearance: PRESENT: no acute distress, well-developed, well-nourished Respiratory exam: PRESENT: clear to auscultation sandrita. ABSENT: rales, rhonchi, wheezes Cardiovascular exam: PRESENT: RRR, systolic murmur. ABSENT: diastolic murmur, rubs GI/Abdominal exam: PRESENT: normal bowel sounds, soft. ABSENT: distended, guarding, mass, organolmegaly, rebound, tenderness Neurological exam: PRESENT: alert, awake, oriented to person, oriented to place, oriented to time, oriented to situation, CN II-XII grossly intact. ABSENT: motor sensory deficit Results Laboratory Results: 06/14/19 05:05 06/16/19 18:06 06/16/19 18:06 Sodium 137.9 Potassium 4.1 Chloride 102 Carbon Dioxide 27 Anion Gap 9 BUN 18 Creatinine 1.13 Est GFR ( Amer) > 60 Glucose 106 Calcium 8.7 Magnesium 2.0 06/14/19 15:10 Catheter Tip - Picc Line Catheter Tip Culture - Final NO GROWTH 3 DAYS 05/21/19 05/22/19 05/22/19 23:07 02:06 11:00 Creatine Kinase CK-MB (CK-2) Troponin I 0.098 0.098 0.070 NT-Pro-B Natriuret Pep 05/22/19 05/22/19 05/22/19 14:00 14:35 20:04 Creatine Kinase CK-MB (CK-2) Troponin I Cancelled 0.060 0.037 NT-Pro-B Natriuret Pep 05/28/19 05/28/19 06/02/19 00:15 00:15 00:20 Creatine Kinase < 20 L < 20 L CK-MB (CK-2) 0.49 Troponin I 0.077 NT-Pro-B Natriuret Pep 06/02/19 06/02/19 06/02/19 00:20 06:15 06:15 Creatine Kinase < 20 L CK-MB (CK-2) 1.53 1.39 Troponin I 0.194 0.171 NT-Pro-B Natriuret Pep 06/02/19 06/02/19 13:30 13:30 Creatine Kinase < 20 L CK-MB (CK-2) 1.68 Troponin I 0.175 NT-Pro-B Natriuret Pep 4000 H Impressions: Chest X-Ray 05/21/19 23:04 IMPRESSION: 1. No acute pulmonary findings. 2. Previous sternotomy Guidance Fluoroscopy 05/22/19 00:00 IMPRESSION: SUCCESSFUL PLACEMENT OF A 5 FR DUAL LUMEN 39 CM PICC IN THE LEFT BASILIC VEIN. Interventional Vascular Procedure 05/22/19 00:00 IMPRESSION: SUCCESSFUL PLACEMENT OF A 5 FR DUAL LUMEN 39 CM PICC IN THE LEFT BASILIC VEIN. PICC Line Insertion 05/22/19 00:00 IMPRESSION: SUCCESSFUL PLACEMENT OF A 5 FR DUAL LUMEN 39 CM PICC IN THE LEFT BASILIC VEIN. Abdomen Ultrasound 05/28/19 00:00 IMPRESSION: Mild splenomegaly. No acute findings otherwise. Abdomen/Pelvis CT 06/06/19 00:00 IMPRESSION: 1. Gastric distention and debris. Ileus. Constipation. 2. Normal appendix. No acute abdominopelvic abnormality. Assessment and Plan - Diagnosis (1) Endocarditis Qualifiers: Endocarditis type: infective Is this a current diagnosis for this admission?: Yes Plan: 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 Status post tricuspid valve replacement September 2018 at [facility]. 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 Presented to ED with dull retrosternal chest pain which has been present since valve replacement. Was a started started on IV vancomycin by Dr. Bowen hospitalist at [facility]. 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 [facility] on regional diversion at the admission time and was admitted here at [facility]. 05/21/2019. TTE LVEF 60%. No thrombus or vegetations noted. Severe tricuspid regurgitation. RSVP 48 to 53 mmHg.05/27/2019 Started on empiric broad-spectrum IV antibiotics. PICC line placed on 05/22/2018 on the left basilic vein. PICC line removed 06/14/2019 as per ID recommendation. Please refer to note. Multiple positive blood cultures for pseudomonas aeruginosa. Last negative blood culture 05/31/2019. Last negative blood culture 05/31/2019. Day 26 IV antibiotics. Day 18/56 of IV antibiotics. Day 20 IV cefepime. Day 8 IV ciprofloxacin 150 mg p.o. twice daily. Received 10 days of IV levofloxacin. Switch to ciprofloxacin IV as per ID rec ommendation. I have been informed that [facility] will be able to do SANJU starting early June. Patient has stable and receiving IV antibiotics SANJU can wait until early June if not will call [facility] again for transfer for SANJU. 06/09/2019. Infectious disease consulted. Recommendations noted. Please refer to note. Unfortunately patient has a drug abuse and could not be sent home on IV antibiotics. 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 Status post tricuspid valve replacement September 2018 at [facility]. Presented to ED with dull retrosternal chest pain which has been present since valve replacement. Was a started started on IV vancomycin by Dr. Bowen hospitalist at [facility]. 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 [facility] on regional diversion at the admission time and was admitted here at [facility]. 05/21/2019. TTE LVEF 60%. No thrombus or vegetations noted. Severe tricuspid regurgitation. RSVP 48 to 53 mmHg.05/27/2019 Started on empiric broad-spectrum IV antibiotics. PICC line placed on 05/22/2018 on the left basilic vein. PICC line removed on 06/14/2019 as per ID recommendation. PICC line tip sent to culture. Multiple positive blood cultures for pseudomonas aeruginosa. Last negative blood culture 05/31/2019. Plan as per #1 (3) IV drug abuse Is this a current diagnosis for this admission?: Yes Plan: Persistent IV drug abuse. Unfortunately patient seems to be abusing drugs while in the hospital. At times patient seems to be too sleepy. UDS on 06/08/2019 for back positive for opiates. Which was confirmed as morphine. Only on Subutex and tramadol in the hospital. Patient was advised on abstinence from recreational drug abuse. Currently on on Subutex since 05/27/2019 and tramadol. Was encouraged to rehab admission one day before discharge. (4) Abdominal pain Qualifiers: Abdominal location: generalized Qualified Code(s): R10.84 - Generalized abdominal pain Is this a current diagnosis for this admission?: Yes Plan: Resolved. CT abdomen pelvis 06/06/2019 found no acute findings except for severe constipation. History of cholecystectomy. History of hepatitis C. History of hepatic steatosis. Lipase WNL. Continue beta-blockers and supportive measures. Continue bowel regimen. Encourage ambulation and high-fiber diet. (5) Anemia Qualifiers: Anemia type: iron deficiency Iron deficiency anemia type: unspecified iron deficiency Qualified Code(s): D50.9 - Iron deficiency anemia, unspecified Is this a current diagnosis for this admission?: Yes Plan: Microcytic. Likely combination of anemia of chronic disease and iron deficiency anemia. Hemoglobin is 9.9 today. Denies any easy bleeding, nosebleeds, hematemesis, hemoptysis, hematochezia, vaginal bleeding or melena. 05/30/2019. Iron panel. Serum iron 18.8, TIBC 270, saturation 7%, ferritin 213, folate 5.53, B12 folate 306, 06/08/2019. Status post 2 PRBC transfusion. Daily H&H, monitor for bleeding, supportive transfusions, ferrous sulfate.
[2019-06-17] MEDS: CARBOXYMETHYLCELLULOSE SOD 0.5% 0.4 ML DROPERETTE OU PRN (17:58)
[2019-06-17] MEDS: METOPROLOL TARTRATE 25 MG TABLET PO SCH (22:01)
[2019-06-17] MEDS: ATORVASTATIN CALCIUM 40 MG TABLET PO SCH (22:02)
[2019-06-18] MEDS: TRAMADOL HCL 50 MG TABLET PO PRN ×2 (02:48→21:29)
[2019-06-18] MEDS: CEFEPIME 2 GM/D5W RTU 2 GM/50 ML RTUPB IV SCH ×3 (02:48→17:49)
[2019-06-18] MEDS: PANTOPRAZOLE SODIUM 40 MG TABLET.DR PO SCH ×2 (08:28→17:48)
[2019-06-18] MEDS: ASCORBIC ACID 500 MG TABLET PO SCH ×2 (08:35→17:48)
[2019-06-18] MEDS: OXYCODONE-ACETAMINOPHEN 5-325 MG TABLET PO PRN ×2 (08:35→17:59)
[2019-06-18] MEDS: FERROUS SULFATE 325 MG TABLET PO SCH ×2 (08:35→17:48)
--- NOTE | 2019-06-18 10:09 | PDOC PROGRESS REPORT ---
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 She presents with dull retrosternal chest pain which has been present since valve replacement has developed fever and some shortness of breath prompting evaluation emergency room where she is found to have sepsis with hypotension, tachycardia, leukocytosis of 19,000, hypo-natremia hypomagnesemia hypo-kalemia and thrombocytopenia. She started on IV vancomycin and Dr. Bowen hospitalist at [facility] is consulted. 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 Subsequent cultures did not grow. [facility] is currently on regional diversion and are subsequently unable to accept her for transfer. She is referred to the hospitalist for admission. 06/04/2019. No acute events overnight. 06/05/2017. No acute events overnight. Denies any fever, chills, nausea, vomiting, diarrhea, constipation or any urinary symptoms. 06/06/2019. No acute events overnight. Continues to complain of chronic right upper quadrant abdominal pain. Denies any fever, chills, nausea, vomiting, diarrhea, constipation or any urinary symptoms. Patient is p.o. tolerant, ambulatory, having normal bowel and bladder movements. 06/07/2019. No acute events overnight. Significant improvement of abdominal pain after having a large bowel movement this morning. Patient is ambulatory, in no apparent distress, p.o. tolerant. Patient has been noted to have low blood pressure however she is asymptomatic. 06/08/2019. No acute events overnight, patient is comfortably sitting in bed, in no apparent distress, abdominal pain has improved significantly, ambulatory, p. o. tolerant, having normal bowel bladder movement, denies any fever, chills, nausea, vomiting, diarrhea, constipation or any urinary symptoms. Patient hemoglobin is 7.7 today denies any hematemesis, hemoptysis, melena, vaginal bleeding or any hematochezia. Stool guaiac has been negative. We will give 2 PRBC today. 06/09/2019. No acute events overnight. Comfortably sitting in bed enjoying her breakfast. In no apparent distress. Abdominal pain has resolved, ambulatory, having normal bladder and bowel movement. Denies any fever, chills, nausea, vomiting, diarrhea, constipation or any urinary symptoms. 06/14/2019. No acute events overnight. Comfortably sitting in bed eating ice chips, no apparent distress, alert oriented x3, denies any abdominal pain, ambulatory, p.o. tolerant, having normal bowel and bladder movements, denies any fever, chills, nausea, vomiting, diarrhea, or any urinary symptoms. Discussed with patient about the need for PICC line to come out as it was placed on 05/22/2019 and has had several positive blood cultures since then. As per ID recommendation will remove PICC line. 06/15/2019. No acute events overnight. Comfortably sitting in bed enjoying her breakfast. Alert oriented x3, denies any fever, chills, nausea, vomiting, diarrhea, constipation or any urinary symptoms. PICC line removed on 06/14/2019. PICC line tip has been sent to culture. 06/16/2019. No acute events overnight. Comfortably sitting in bed enjoying her breakfast. Alert oriented x3, denies any fever, chills, nausea, vomiting, diarrhea, constipation or any urinary symptoms. 06/17/2018. No acute events overnight. Resting in bed. Complaining bed. Complaining of chronic back pain, alert oriented x3, denies any fever, chills, nausea, vomiting, diarrhea, constipation or any urinary symptoms. 06/18/2019. No acute events overnight. Comfortably sitting in bed, enjoying her breakfast, back pain has improved since being started on Percocet, denies any fever, chills, nausea, vomiting, diarrhea, constipation or any urinary symptoms. P.o. tolerant, ambulatory, having normal bowel bladder movement. Reason For Visit: IV DRUG ABUSE,SEPSIS,ENDOCARDITIS Physical Exam Vital Signs: Temp Pulse Resp BP Pulse Ox 97.6 F 76 18 90/55 L 100 06/18/19 08:28 06/18/19 08:28 06/18/19 08:28 06/18/19 08:28 06/18/19 08:28 Intake & Output 06/17/19 06/18/19 06/19/19 06:59 06:59 06:59 Intake Total 1298 834 Output Total 4 900 Balance 1294 -66 Weight 90.2 kg General appearance: PRESENT: obese Respiratory exam: PRESENT: clear to auscultation sandrita. ABSENT: rales, rhonchi, wheezes Cardiovascular exam: PRESENT: RRR, systolic murmur. ABSENT: diastolic murmur, rubs Pulses: PRESENT: normal dorsalis pedis pul GI/Abdominal exam: PRESENT: normal bowel sounds, soft. ABSENT: distended, guarding, mass, organolmegaly, rebound, tenderness Results Laboratory Results: 06/14/19 05:05 06/16/19 18:06 06/14/19 15:10 Catheter Tip - Picc Line Catheter Tip Culture - Final NO GROWTH 3 DAYS 05/21/19 05/22/19 05/22/19 23:07 02:06 11:00 Creatine Kinase CK-MB (CK-2) Troponin I 0.098 0.098 0.070 NT-Pro-B Natriuret Pep 05/22/19 05/22/19 05/22/19 14:00 14:35 20:04 Creatine Kinase CK-MB (CK-2) Troponin I Cancelled 0.060 0.037 NT-Pro-B Natriuret Pep 05/28/19 05/28/19 06/02/19 00:15 00:15 00:20 Creatine Kinase < 20 L < 20 L CK-MB (CK-2) 0.49 Troponin I 0.077 NT-Pro-B Natriuret Pep 06/02/19 06/02/19 06/02/19 00:20 06:15 06:15 Creatine Kinase < 20 L CK-MB (CK-2) 1.53 1.39 Troponin I 0.194 0.171 NT-Pro-B Natriuret Pep 06/02/19 06/02/19 13:30 13:30 Creatine Kinase < 20 L CK-MB (CK-2) 1.68 Troponin I 0.175 NT-Pro-B Natriuret Pep 4000 H Impressions: Chest X-Ray 05/21/19 23:04 IMPRESSION: 1. No acute pulmonary findings. 2. Previous sternotomy Guidance Fluoroscopy 05/22/19 00:00 IMPRESSION: SUCCESSFUL PLACEMENT OF A 5 FR DUAL LUMEN 39 CM PICC IN THE LEFT BASILIC VEIN. Interventional Vascular Procedure 05/22/19 00:00 IMPRESSION: SUCCESSFUL PLACEMENT OF A 5 FR DUAL LUMEN 39 CM PICC IN THE LEFT BASILIC VEIN. PICC Line Insertion 05/22/19 00:00 IMPRESSION: SUCCESSFUL PLACEMENT OF A 5 FR DUAL LUMEN 39 CM PICC IN THE LEFT BASILIC VEIN. Abdomen Ultrasound 05/28/19 00:00 IMPRESSION: Mild splenomegaly. No acute findings otherwise. Abdomen/Pelvis CT 06/06/19 00:00 IMPRESSION: 1. Gastric distention and debris. Ileus. Constipation. 2. Normal appendix. No acute abdominopelvic abnormality. Assessment and Plan - Diagnosis (1) Endocarditis Qualifiers: Endocarditis type: infective Is this a current diagnosis for this admission?: Yes Plan: 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 Status post tricuspid valve replacement September 2018 at [facility]. 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 Presented to ED with dull retrosternal chest pain which has been present since valve replacement. Was a started started on IV vancomycin by Dr. Bowen hospitalist at [facility]. 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 [facility] on regional diversion at the admission time and was admitted here at [facility]. 05/21/2019. TTE LVEF 60%. No thrombus or vegetations noted. Severe tricuspid regurgitation. RSVP 48 to 53 mmHg.05/27/2019 Started on empiric broad-spectrum IV antibiotics. PICC line placed on 05/22/2018 on the left basilic vein. PICC line removed 06/14/2019 as per ID recommendation. Please refer to note. Tip was cultured which came back negative. Multiple positive blood cultures for pseudomonas aeruginosa. Last negative blood culture 05/31/2019. Last negative blood culture 05/31/2019. Day 27 IV antibiotics. Day 19/56 of IV antibiotics. Day 21 IV cefepime. Day 9 IV ciprofloxacin 150 mg p.o. twice daily. Received 10 days of IV levofloxacin. Switch to ciprofloxacin IV as per ID recommendation. I have been informed that [facility] will be able to do SANJU starting early June. Patient has stable and receiving IV antibiotics SANJU can wait until early June if not will call Replaced [facility] again for transfer for SANJU. 06/09/2019. Infectious disease consulted. Recommendations noted. Please refer to note. Unfortunately patient has a drug abuse and could not be sent home on IV antibiotics. 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 Status post tricuspid valve replacement September 2018 at [facility]. Presented to ED with dull retrosternal chest pain which has been present since valve replacement. Was a started started on IV vancomycin by Dr. Bowen hospitalist at [facility]. 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 [facility] on regional diversion at the admission time and was admitted here at [facility]. 05/21/2019. TTE LVEF 60%. No thrombus or vegetations noted. Severe tricuspid regurgitation. RSVP 48 to 53 mmHg.05/27/2019 Started on empiric broad-spectrum IV antibiotics. PICC line placed on 05/22/2018 on the left basilic vein. PICC line removed on 06/14/2019 as per ID recommendation. PICC line tip sent to culture. Multiple positive blood cultures for pseudomonas aeruginosa. Last negative blood culture 05/31/2019. Plan as per #1 (3) IV drug abuse Is this a current diagnosis for this admission?: Yes Plan: Persistent IV drug abuse. Unfortunately patient seems to be abusing drugs while in the hospital. At times patient seems to be too sleepy. UDS on 06/08/2019 for back positive for opiates. Which was confirmed as morphine. Only on Subutex and tramadol in the hospital. Patient was advised on abstinence from recreational drug abuse. Currently on on Subutex since 05/27/2019 and tramadol. Was encouraged to rehab admission one day before discharge. (4) Abdominal pain Qualifiers: Abdominal location: generalized Qualified Code(s): R10.84 - Generalized abdominal pain Is this a current diagnosis for this admission?: Yes Plan: Resolved. CT abdomen pelvis 06/06/2019 found no acute findings except for severe constipation. History of cholecystectomy. History of hepatitis C. History of hepatic steatosis. Lipase WNL. Continue beta-blockers and supportive measures. Continue bowel regimen. Encourage ambulation and high-fiber diet. (5) Anemia Qualifiers: Anemia type: iron deficiency Iron deficiency anemia type: unspecified iron deficiency Qualified Code(s): D50.9 - Iron deficiency anemia, unspecified Is this a current diagnosis for this admission?: Yes Plan: Microcytic. Likely combination of anemia of chronic disease and iron deficiency anemia. Denies any easy bleeding, nosebleeds, hematemesis, hemoptysis, hematochezia, vaginal bleeding or melena. 05/30/2019. Iron panel. Serum iron 18.8, TIBC 270, saturation 7%, ferritin 213, folate 5.53, B12 folate 306, 06/08/2019. Status post 2 PRBC transfusion. Daily H&H, monitor for bleeding, supportive transfusions, ferrous sulfate.
[2019-06-18] MEDS: LACTOBACILLUS ACIDOPHILUS 250 MG TAB PO SCH ×2 (10:23→17:48)
[2019-06-18] MEDS: METOPROLOL TARTRATE 25 MG TABLET PO SCH ×2 (10:24→21:26)
[2019-06-18] MEDS: GABAPENTIN 300 MG CAPSULE PO SCH ×2 (10:26→17:48)
[2019-06-18] MEDS: DOCUSATE SODIUM 100 MG CAPSULE PO SCH ×2 (10:30→17:49)
[2019-06-18] MEDS: DULOXETINE HCL 20 MG CAPSULE.DR PO SCH ×2 (10:30→17:49)
[2019-06-18] MEDS: CIPROFLOXACIN HCL 750 MG TABLET PO SCH (10:30)
[2019-06-18] MEDS: LISINOPRIL 5 MG TABLET PO SCH (10:33)
[2019-06-18] MEDS: MIDODRINE HCL 5 MG TABLET PO SCH ×2 (10:33→18:01)
[2019-06-18] MEDS: NICOTINE 14 MG/24 HR PATCH.TD24 TD SCH (10:33)
[2019-06-18] MEDS: BUPRENORPHINE HCL 2 MG SUBLINGUAL TABLET SL SCH ×2 (10:34→21:27)
[2019-06-18] MEDS: NORMAL SALINE 10 ML SDV (SCHEDULED) IV SCH ×2 (10:35→21:12)
[2019-06-18] MEDS: ATORVASTATIN CALCIUM 40 MG TABLET PO SCH (21:26)
[2019-06-18] MEDS: PROMETHAZINE HCL 25 MG TABLET PO PRN (21:29)
[2019-06-19] MEDS ORDERED: CEFEPIME 2 GM/D5W RTU 2 GM/50 ML RTUPB IV ONE (03:32)
[2019-06-19] MEDS: CEFEPIME 2 GM/D5W RTU 2 GM/50 ML RTUPB IV SCH ×3 (03:44→17:40)
[2019-06-19] MEDS: OXYCODONE-ACETAMINOPHEN 5-325 MG TABLET PO PRN ×3 (03:46→22:36)
[2019-06-19] MEDS: PANTOPRAZOLE SODIUM 40 MG TABLET.DR PO SCH ×2 (05:44→17:40)
[2019-06-19] MEDS: DOCUSATE SODIUM 100 MG CAPSULE PO SCH ×2 (11:32→17:41)
[2019-06-19] MEDS: DULOXETINE HCL 20 MG CAPSULE.DR PO SCH ×2 (11:33→17:41)
[2019-06-19] MEDS: BUPRENORPHINE HCL 2 MG SUBLINGUAL TABLET SL SCH ×3 (11:48→22:38)
[2019-06-19] MEDS: LACTOBACILLUS ACIDOPHILUS 250 MG TAB PO SCH ×2 (11:48→17:39)
[2019-06-19] MEDS: FERROUS SULFATE 325 MG TABLET PO SCH ×2 (11:49→17:39)
[2019-06-19] MEDS: GABAPENTIN 300 MG CAPSULE PO SCH ×2 (11:49→17:39)
[2019-06-19] MEDS: ASCORBIC ACID 500 MG TABLET PO SCH ×2 (11:49→17:40)
[2019-06-19] MEDS: NICOTINE 14 MG/24 HR PATCH.TD24 TD SCH (11:50)
[2019-06-19] MEDS: NORMAL SALINE 10 ML SDV (SCHEDULED) IV SCH ×2 (11:50→21:31)
[2019-06-19] MEDS: MIDODRINE HCL 5 MG TABLET PO SCH ×2 (11:52→17:42)
[2019-06-19] MEDS: LISINOPRIL 5 MG TABLET PO SCH (12:05)
[2019-06-19] MEDS: METOPROLOL TARTRATE 25 MG TABLET PO SCH ×2 (12:05→21:31)
--- NOTE | 2019-06-19 12:10 | PDOC PROGRESS REPORT ---
Subjective Progress Note for:: 06/19/19 Subjective:: HONEY GRESHAM is a 43 year old female with a past medical history of persistent IV drug use, endocarditis, status post tricuspid valve replacement September 2018 at [facility]. She presents with dull retrosternal chest pain which has been present since valve replacement has developed fever and some shortness of breath prompting evaluation emergency room where she is found to have sepsis with hypotension, tachycardia, leukocytosis of 19,000, hypo-natremia hypomagnesemia hypo-kalemia and thrombocytopenia. She started on IV vancomycin and Dr. Bowen hospitalist at [facility] is consulted. 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 Subsequent cultures did not grow. [facility] is currently on regional diversion and are subsequently unable to accept her for transfer. She is referred to the hospitalist for admission. 06/04/2019. No acute events overnight. 06/05/2017. No acute events overnight. Denies any fever, chills, nausea, vomiting, diarrhea, constipation or any urinary symptoms. 06/06/2019. No acute events overnight. Continues to complain of chronic right upper quadrant abdominal pain. Denies any fever, chills, nausea, vomiting, diarrhea, constipation or any urinary symptoms. Patient is p.o. tolerant, ambulatory, having normal bowel and bladder movements. 06/07/2019. No acute events overnight. Significant improvement of abdominal pain after having a large bowel movement this morning. Patient is ambulatory, in no apparent distress, p.o. tolerant. Patient has been noted to have low blood pressure however she is asymptomatic. 06/08/2019. No acute events overnight, patient is comfortably sitting in bed, in no apparent distress, abdominal pain has improved significantly, ambulatory, p. o. tolerant, having normal bowel bladder movement, denies any fever, chills, nausea, vomiting, diarrhea, constipation or any urinary symptoms. Patient hemoglobin is 7.7 today denies any hematemesis, hemoptysis, melena, vaginal bleeding or any hematochezia. Stool guaiac has been negative. We will give 2 PRBC today. 06/09/2019. No acute events overnight. Comfortably sitting in bed enjoying her breakfast. In no apparent distress. Abdominal pain has resolved, ambulatory, having normal bladder and bowel movement. Denies any fever, chills, nausea, vomiting, diarrhea, constipation or any urinary symptoms. 06/14/2019. No acute events overnight. Comfortably sitting in bed eating ice chips, no apparent distress, alert oriented x3, denies any abdominal pain, ambulatory, p.o. tolerant, having normal bowel and bladder movements, denies any fever, chills, nausea, vomiting, diarrhea, or any urinary symptoms. Discussed with patient about the need for PICC line to come out as it was placed on 05/22/2019 and has had several positive blood cultures since then. As per ID recommendation will remove PICC line. 06/15/2019. No acute events overnight. Comfortably sitting in bed enjoying her breakfast. Alert oriented x3, denies any fever, chills, nausea, vomiting, diarrhea, constipation or any urinary symptoms. PICC line removed on 06/14/2019. PICC line tip has been sent to culture. 06/16/2019. No acute events overnight. Comfortably sitting in bed enjoying her breakfast. Alert oriented x3, denies any fever, chills, nausea, vomiting, diarrhea, constipation or any urinary symptoms. 06/17/2018. No acute events overnight. Resting in bed. Complaining bed. Complaining of chronic back pain, alert oriented x3, denies any fever, chills, nausea, vomiting, diarrhea, constipation or any urinary symptoms. 06/18/2019. No acute events overnight. Comfortably sitting in bed, enjoying her breakfast, back pain has improved since being started on Percocet, denies any fever, chills, nausea, vomiting, diarrhea, constipation or any urinary symptoms. P.o. tolerant, ambulatory, having normal bowel bladder movement. 06/19/2019. No acute events overnight. Denies any fever, chills, nausea, v omiting, diarrhea, constipation or any urinary symptoms. P.o. tolerant, ambulatory, having normal bowel bladder movement. Reason For Visit: IV DRUG ABUSE,SEPSIS,ENDOCARDITIS Physical Exam Vital Signs: Temp Pulse Resp BP Pulse Ox 97.9 F 75 18 102/45 L 100 06/19/19 07:30 06/19/19 07:30 06/19/19 07:30 06/19/19 07:30 06/19/19 07:30 Intake & Output 06/18/19 06/19/19 06/20/19 06:59 06:59 06:59 Intake Total 834 612 Output Total 900 Balance -66 612 Weight 86.8 kg General appearance: PRESENT: no acute distress, well-developed, well-nourished Respiratory exam: PRESENT: clear to auscultation sandrita. ABSENT: rales, rhonchi, wheezes Cardiovascular exam: PRESENT: RRR, systolic murmur. ABSENT: diastolic murmur, rubs GI/Abdominal exam: PRESENT: normal bowel sounds, soft. ABSENT: distended, guarding, mass, organolmegaly, rebound, tenderness Neurological exam: PRESENT: alert, awake, oriented to person, oriented to place, oriented to time, oriented to situation, CN II-XII grossly intact. ABSENT: motor sensory deficit Results Laboratory Results: 06/14/19 05:05 06/16/19 18:06 05/21/19 05/22/19 05/22/19 23:07 02:06 11:00 Creatine Kinase CK-MB (CK-2) Troponin I 0.098 0.098 0.070 NT-Pro-B Natriuret Pep 05/22/19 05/22/19 05/22/19 14:00 14:35 20:04 Creatine Kinase CK-MB (CK-2) Troponin I Cancelled 0.060 0.037 NT-Pro-B Natriuret Pep 05/28/19 05/28/19 06/02/19 00:15 00:15 00:20 Creatine Kinase < 20 L < 20 L CK-MB (CK-2) 0.49 Troponin I 0.077 NT-Pro-B Natriuret Pep 06/02/19 06/02/19 06/02/19 00:20 06:15 06:15 Creatine Kinase < 20 L CK-MB (CK-2) 1.53 1.39 Troponin I 0.194 0.171 NT-Pro-B Natriuret Pep 06/02/19 06/02/19 13:30 13:30 Creatine Kinase < 20 L CK-MB (CK-2) 1.68 Troponin I 0.175 NT-Pro-B Natriuret Pep 4000 H Impressions: Chest X-Ray 05/21/19 23:04 IMPRESSION: 1. No acute pulmonary findings. 2. Previous sternotomy Guidance Fluoroscopy 05/22/19 00:00 IMPRESSION: SUCCESSFUL PLACEMENT OF A 5 FR DUAL LUMEN 39 CM PICC IN THE LEFT BASILIC VEIN. Interventional Vascular Procedure 05/22/19 00:00 IMPRESSION: SUCCESSFUL PLACEMENT OF A 5 FR DUAL LUMEN 39 CM PICC IN THE LEFT BASILIC VEIN. PICC Line Insertion 05/22/19 00:00 IMPRESSION: SUCCESSFUL PLACEMENT OF A 5 FR DUAL LUMEN 39 CM PICC IN THE LEFT BASILIC VEIN. Abdomen Ultrasound 05/28/19 00:00 IMPRESSION: Mild splenomegaly. No acute findings otherwise. Abdomen/Pelvis CT 06/06/19 00:00 IMPRESSION: 1. Gastric distention and debris. Ileus. Constipation. 2. Normal appendix. No acute abdominopelvic abnormality. Assessment and Plan - Diagnosis (1) Endocarditis Qualifiers: Endocarditis type: infective Is this a current diagnosis for this admission?: Yes Plan: 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 Status post tricuspid valve replacement September 2018 at [facility]. 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 Presented to ED with dull retrosternal chest pain which has been present since valve replacement. Was a started started on IV vancomycin by Dr. Bowen hospitalist at [facility]. 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 [facility] on regional diversion at the admission time and was admitted here at [facility]. 05/21/2019. TTE LVEF 60%. No thrombus or vegetations noted. Severe tricuspid regurgitation. RSVP 48 to 53 mmHg.05/27/2019 Started on empiric broad-spectrum IV antibiotics. PICC line placed on 05/22/2018 on the left basilic vein. PICC line removed 06/14/2019 as per ID recommendation. Please refer to note. Tip was cultured which came back negative. Multiple positive blood cultures for pseudomonas aeruginosa. Last negative blo od culture 05/31/2019. Last negative blood culture 05/31/2019. Day 28 IV antibiotics. Day 20 of 56 days. Expected completion date 06/29/2019. Day 22 IV cefepime. Day 10 IV ciprofloxacin 150 mg p.o. twice daily. Received 10 days of IV levofloxacin. Switch to ciprofloxacin IV as per ID r ecommendation. I have been informed that [facility] will be able to do SANJU starting early June. Patient has stable and receiving IV antibiotics SANJU can wait until early June if not will call [facility] again for transfer for SANJU. 06/09/2019. Infectious disease consulted. Recommendations noted. Please refer to note. Unfortunately patient has a drug abuse and could not be sent home on IV antibiotics. 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 Status post tricuspid valve replacement September 2018 at [facility]. Presented to ED with dull retrosternal chest pain which has been present since valve replacement. Was a started started on IV vancomycin by Dr. Bowen hospitalist at [facility]. 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 [facility] on regional diversion at the admission time and was admitted here at [facility]. 05/21/2019. TTE LVEF 60%. No thrombus or vegetations noted. Severe tricuspid regurgitation. RSVP 48 to 53 mmHg.05/27/2019 Started on empiric broad-spectrum IV antibiotics. PICC line placed on 05/22/2018 on the left basilic vein. PICC line removed on 06/14/2019 as per ID recommendation. PICC line tip sent to culture. Multiple positive blood cultures for pseudomonas aeruginosa. Last negative blood culture 05/31/2019. Plan as per #1 (3) IV drug abuse Is this a current diagnosis for this admission?: Yes Plan: Persistent IV drug abuse. Unfortunately patient seems to be abusing drugs while in the hospital. At times patient seems to be too sleepy. UDS on 06/08/2019 for back positive for opiates. Which was confirmed as morphine. Only on Subutex and tramadol in the hospital. Patient was advised on abstinence from recreational drug abuse. Currently on on Subutex since 05/27/2019 and tramadol. Was encouraged to rehab admission one day before discharge. (4) Abdominal pain Qualifiers: Abdominal location: generalized Qualified Code(s): R10.84 - Generalized abdominal pain Is this a current diagnosis for this admission?: Yes Plan: Resolved. CT abdomen pelvis 06/06/2019 found no acute findings except for severe constipat ion. History of cholecystectomy. History of hepatitis C. History of hepatic steatosis. Lipase WNL. Continue beta-blockers and supportive measures. Continue bowel regimen. Encourage ambulation and high-fiber diet. (5) Anemia Qualifiers: Anemia type: iron deficiency Iron deficiency anemia type: unspecified iron deficiency Qualified Code(s): D50.9 - Iron deficiency anemia, unspecified Is this a current diagnosis for this admission?: Yes Plan: Microcytic. Likely combination of anemia of chronic disease and iron deficiency anemia. Denies any easy bleeding, nosebleeds, hematemesis, hemoptysis, hematochezia, vaginal bleeding or melena. 05/30/2019. Iron panel. Serum iron 18.8, TIBC 270, saturation 7%, ferritin 213, folate 5.53, B12 folate 306, 06/08/2019. Status post 2 PRBC transfusion. Daily H&H, monitor for bleeding, supportive transfusions, ferrous sulfate.
[2019-06-19] MEDS: TIZANIDINE HCL 4 MG TABLET PO SCH ×2 (14:47→17:42)
[2019-06-19] MEDS: ATORVASTATIN CALCIUM 40 MG TABLET PO SCH ×2 (21:31→22:37)
[2019-06-19] MEDS: PROMETHAZINE HCL 25 MG TABLET PO PRN (22:37)
[2019-06-20] MEDS: CEFEPIME 2 GM/D5W RTU 2 GM/50 ML RTUPB IV SCH ×3 (02:02→18:31)
[2019-06-20] MEDS: PANTOPRAZOLE SODIUM 40 MG TABLET.DR PO SCH ×2 (05:27→18:31)
[2019-06-20] MEDS: OXYCODONE-ACETAMINOPHEN 5-325 MG TABLET PO PRN ×2 (07:01→15:46)
[2019-06-20] MEDS: METOPROLOL TARTRATE 25 MG TABLET PO SCH ×2 (10:00→21:32)
[2019-06-20] MEDS: DOCUSATE SODIUM 100 MG CAPSULE PO SCH ×2 (10:09→18:17)
[2019-06-20] MEDS: LISINOPRIL 5 MG TABLET PO SCH (10:10)
[2019-06-20] MEDS: NORMAL SALINE 10 ML SDV (SCHEDULED) IV SCH ×2 (10:10→21:31)
[2019-06-20] MEDS: NICOTINE 14 MG/24 HR PATCH.TD24 TD SCH (10:14)
[2019-06-20] MEDS: DULOXETINE HCL 20 MG CAPSULE.DR PO SCH ×2 (10:15→18:17)
[2019-06-20] MEDS: ASCORBIC ACID 500 MG TABLET PO SCH ×2 (10:28→18:30)
[2019-06-20] MEDS: FERROUS SULFATE 325 MG TABLET PO SCH ×2 (10:28→18:31)
[2019-06-20] MEDS: LACTOBACILLUS ACIDOPHILUS 250 MG TAB PO SCH ×2 (10:28→18:30)
[2019-06-20] MEDS: GABAPENTIN 300 MG CAPSULE PO SCH ×2 (10:28→18:30)
[2019-06-20] MEDS: MIDODRINE HCL 5 MG TABLET PO SCH ×2 (10:29→18:31)
[2019-06-20] MEDS: TIZANIDINE HCL 4 MG TABLET PO SCH ×3 (10:30→18:32)
[2019-06-20] MEDS: BUPRENORPHINE HCL 2 MG SUBLINGUAL TABLET SL SCH ×2 (10:31→22:06)
--- NOTE | 2019-06-20 10:48 | PDOC PROGRESS REPORT ---
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 She presents with dull retrosternal chest pain which has been present since valve replacement has developed fever and some shortness of breath prompting evaluation emergency room where she is found to have sepsis with hypotension, tachycardia, leukocytosis of 19,000, hypo-natremia hypomagnesemia hypo-kalemia and thrombocytopenia. She started on IV vancomycin and Dr. Bowen hospitalist at [facility] is consulted. 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 Subsequent cultures did not grow. [facility] is currently on regional diversion and are subsequently unable to accept her for transfer. She is referred to the hospitalist for admission. 06/04/2019. No acute events overnight. 06/05/2017. No acute events overnight. Denies any fever, chills, nausea, vomiting, diarrhea, constipation or any urinary symptoms. 06/06/2019. No acute events overnight. Continues to complain of chronic right upper quadrant abdominal pain. Denies any fever, chills, nausea, vomiting, diarrhea, constipation or any urinary symptoms. Patient is p.o. tolerant, ambulatory, having normal bowel and bladder movements. 06/07/2019. No acute events overnight. Significant improvement of abdominal pain after having a large bowel movement this morning. Patient is ambulatory, in no apparent distress, p.o. tolerant. Patient has been noted to have low blood pressure however she is asymptomatic. 06/08/2019. No acute events overnight, patient is comfortably sitting in bed, in no apparent distress, abdominal pain has improved significantly, ambulatory, p. o. tolerant, having normal bowel bladder movement, denies any fever, chills, nausea, vomiting, diarrhea, constipation or any urinary symptoms. Patient hemoglobin is 7.7 today denies any hematemesis, hemoptysis, melena, vaginal bleeding or any hematochezia. Stool guaiac has been negative. We will give 2 PRBC today. 06/09/2019. No acute events overnight. Comfortably sitting in bed enjoying her breakfast. In no apparent distress. Abdominal pain has resolved, ambulatory, having normal bladder and bowel movement. Denies any fever, chills, nausea, vomiting, diarrhea, constipation or any urinary symptoms. 06/14/2019. No acute events overnight. Comfortably sitting in bed eating ice chips, no apparent distress, alert oriented x3, denies any abdominal pain, ambulatory, p.o. tolerant, having normal bowel and bladder movements, denies any fever, chills, nausea, vomiting, diarrhea, or any urinary symptoms. Discussed with patient about the need for PICC line to come out as it was placed on 05/22/2019 and has had several positive blood cultures since then. As per ID recommendation will remove PICC line. 06/15/2019. No acute events overnight. Comfortably sitting in bed enjoying her breakfast. Alert oriented x3, denies any fever, chills, nausea, vomiting, diarrhea, constipation or any urinary symptoms. PICC line removed on 06/14/2019. PICC line tip has been sent to culture. 06/16/2019. No acute events overnight. Comfortably sitting in bed enjoying her breakfast. Alert oriented x3, denies any fever, chills, nausea, vomiting, diarrhea, constipation or any urinary symptoms. 06/17/2018. No acute events overnight. Resting in bed. Complaining bed. Complaining of chronic back pain, alert oriented x3, denies any fever, chills, nausea, vomiting, diarrhea, constipation or any urinary symptoms. 06/18/2019. No acute events overnight. Comfortably sitting in bed, enjoying her breakfast, back pain has improved since being started on Percocet, denies any fever, chills, nausea, vomiting, diarrhea, constipation or any urinary symptoms. P.o. tolerant, ambulatory, having normal bowel bladder movement. 06/19/2019. No acute events overnight. Denies any fever, chills, nausea, v omiting, diarrhea, constipation or any urinary symptoms. P.o. tolerant, ambulatory, having normal bowel bladder movement. 06/20/2019. Complaining of having nightmares overnight, could not get a good night sleep, back pain is improving with tizanidine and Percocet, denies any fever, chills, nausea, shortness of breath, diarrhea or any constipation. P.o. tolerant, ambulatory having normal bladder and bowel movements. Reason For Visit: IV DRUG ABUSE,SEPSIS,ENDOCARDITIS Physical Exam Vital Signs: Temp Pulse Resp BP Pulse Ox 98.1 F 72 17 91/38 L 96 06/20/19 07:49 06/20/19 07:49 06/20/19 07:49 06/20/19 07:49 06/20/19 07:49 Intake & Output 06/19/19 06/20/19 06/21/19 06:59 06:59 06:59 Intake Total 612 840 Balance 612 840 Weight 86.8 kg 90 kg General appearance: PRESENT: no acute distress, well-developed, well-nourished Head exam: PRESENT: atraumatic, normocephalic Respiratory exam: PRESENT: clear to auscultation sandrita. ABSENT: rales, rhonchi, wheezes Cardiovascular exam: PRESENT: RRR, systolic murmur. ABSENT: diastolic murmur, rubs Neurological exam: PRESENT: alert, awake, oriented to person, oriented to place, oriented to time, oriented to situation, CN II-XII grossly intact. ABSENT: motor sensory deficit Results Laboratory Results: 06/14/19 05:05 06/16/19 18:06 05/21/19 05/22/19 05/22/19 23:07 02:06 11:00 Creatine Kinase CK-MB (CK-2) Troponin I 0.098 0.098 0.070 NT-Pro-B Natriuret Pep 05/22/19 05/22/19 05/22/19 14:00 14:35 20:04 Creatine Kinase CK-MB (CK-2) Troponin I Cancelled 0.060 0.037 NT-Pro-B Natriuret Pep 05/28/19 05/28/19 06/02/19 00:15 00:15 00:20 Creatine Kinase < 20 L < 20 L CK-MB (CK-2) 0.49 Troponin I 0.077 NT-Pro-B Natriuret Pep 06/02/19 06/02/19 06/02/19 00:20 06:15 06:15 Creatine Kinase < 20 L CK-MB (CK-2) 1.53 1.39 Troponin I 0.194 0.171 NT-Pro-B Natriuret Pep 06/02/19 06/02/19 13:30 13:30 Creatine Kinase < 20 L CK-MB (CK-2) 1.68 Troponin I 0.175 NT-Pro-B Natriuret Pep 4000 H Impressions: Chest X-Ray 05/21/19 23:04 IMPRESSION: 1. No acute pulmonary findings. 2. Previous sternotomy Guidance Fluoroscopy 05/22/19 00:00 IMPRESSION: SUCCESSFUL PLACEMENT OF A 5 FR DUAL LUMEN 39 CM PICC IN THE LEFT BASILIC VEIN. Interventional Vascular Procedure 05/22/19 00:00 IMPRESSION: SUCCESSFUL PLACEMENT OF A 5 FR DUAL LUMEN 39 CM PICC IN THE LEFT BASILIC VEIN. PICC Line Insertion 05/22/19 00:00 IMPRESSION: SUCCESSFUL PLACEMENT OF A 5 FR DUAL LUMEN 39 CM PICC IN THE LEFT BASILIC VEIN. Abdomen Ultrasound 05/28/19 00:00 IMPRESSION: Mild splenomegaly. No acute findings otherwise. Abdomen/Pelvis CT 06/06/19 00:00 IMPRESSION: 1. Gastric distention and debris. Ileus. Constipation. 2. Normal appendix. No acute abdominopelvic abnormality. Assessment and Plan - Diagnosis (1) Endocarditis Qualifiers: Endocarditis type: infective Is this a current diagnosis for this admission?: Yes Plan: 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 Status post tricuspid valve replacement September 2018 at [facility]. 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 Presented to ED with dull retrosternal chest pain which has been present since valve replacement. Was a started started on IV vancomycin by Dr. Bowen hospitalist at [facility]. 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 [facility] on regional diversion at the admission time and was admitted here at [facility]. 05/21/2019. TTE LVEF 60%. No thrombus or vegetations noted. Severe tricuspid regurgitation. RSVP 48 to 53 mmHg.05/27/2019 Started on empiric broad-spectrum IV antibiotics. PICC line placed on 05/22/2018 on the left basilic vein. PICC line removed 06/14/2019 as per ID recommendation. Please refer to note. Tip was cultured which came back negative. Multiple positive blood cultures for pseudomonas aeruginosa. Last negative bl ood culture 05/31/2019. Last negative blood culture 05/31/2019. Day 21 of 56 days. Expected completion date 06/29/2019. Day 23 IV cefepime. Day 11 IV ciprofloxacin 150 mg p.o. twice daily. Day 29 IV antibiotics. Received 10 days of IV levofloxacin. Switch to ciprofloxacin IV as per ID recommendation. I have been informed that [facility] will be able to do SANJU starting early June. Patient has stable and receiving IV antibiotics SANJU can wait until early June if not will call [facility] again for transfer for SANJU. 06/09/2019. Infectious disease consulted. Recommendations noted. Please refer to note. Unfortunately patient has a drug abuse and could not be sent home on IV antibiotics. 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 Status post tricuspid valve replacement September 2018 at [facility]. Presented to ED with dull retrosternal chest pain which has been present since valve replacement. Was a started started on IV vancomycin by Dr. Bowen hospitalist at [facility]. 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 [facility] on regional diversion at the admission time and was admitted here at [facility]. 05/21/2019. TTE LVEF 60%. No thrombus or vegetations noted. Severe tricuspid regurgitation. RSVP 48 to 53 mmHg.05/27/2019 Started on empiric broad-spectrum IV antibiotics. PICC line placed on 05/22/2018 on the left basilic vein. PICC line removed on 06/14/2019 as per ID recommendation. PICC line tip sent to culture. Multiple positive blood cultures for pseudomonas aeruginosa. Last negative blood culture 05/31/2019. Plan as per #1 (3) IV drug abuse Is this a current diagnosis for this admission?: Yes Plan: Persistent IV drug abuse. Unfortunately patient seems to be abusing drugs while in the hospital. At times patient seems to be too sleepy. UDS on 06/08/2019 for back positive for opiates. Which was confirmed as morphine. Only on Subutex and tramadol in the hospital. Patient was advised on abstinence from recreational drug abuse. Currently on on Subutex since 05/27/2019 and tramadol. Was encouraged to rehab admission one day before discharge. (4) Abdominal pain Qualifiers: Abdominal location: generalized Qualified Code(s): R10.84 - Generalized abdominal pain Is this a current diagnosis for this admission?: Yes Plan: Resolved. CT abdomen pelvis 06/06/2019 found no acute findings except for severe constipa tion. History of cholecystectomy. History of hepatitis C. History of hepatic steatosis. Lipase WNL. Continue beta-blockers and supportive measures. Continue bowel regimen. Encourage ambulation and high-fiber diet. (5) Anemia Qualifiers: Anemia type: iron deficiency Iron deficiency anemia type: unspecified iron deficiency Qualified Code(s): D50.9 - Iron deficiency anemia, unspecified Is this a current diagnosis for this admission?: Yes Plan: Microcytic. Likely combination of anemia of chronic disease and iron deficiency anemia. Denies any easy bleeding, nosebleeds, hematemesis, hemoptysis, hematochezia, vaginal bleeding or melena. 05/30/2019. Iron panel. Serum iron 18.8, TIBC 270, saturation 7%, ferritin 213, folate 5.53, B12 folate 306, 06/08/2019. Status post 2 PRBC transfusion. Daily H&H, monitor for bleeding, supportive transfusions, ferrous sulfate.
[2019-06-20] MEDS: ATORVASTATIN CALCIUM 40 MG TABLET PO SCH (21:34)
[2019-06-21] MEDS: CEFEPIME 2 GM/D5W RTU 2 GM/50 ML RTUPB IV SCH ×3 (01:06→17:14)
[2019-06-21] MEDS: PROMETHAZINE HCL 25 MG TABLET PO PRN ×3 (01:07→21:31)
[2019-06-21] MEDS: OXYCODONE-ACETAMINOPHEN 5-325 MG TABLET PO PRN ×3 (01:08→21:31)
[2019-06-21] MEDS: PANTOPRAZOLE SODIUM 40 MG TABLET.DR PO SCH ×2 (07:03→17:14)
[2019-06-21] MEDS: LISINOPRIL 5 MG TABLET PO SCH (10:25)
[2019-06-21] MEDS: FERROUS SULFATE 325 MG TABLET PO SCH ×2 (10:25→17:14)
[2019-06-21] MEDS: ASCORBIC ACID 500 MG TABLET PO SCH ×2 (10:25→17:14)
[2019-06-21] MEDS: LACTOBACILLUS ACIDOPHILUS 250 MG TAB PO SCH ×2 (10:25→17:17)
[2019-06-21] MEDS: METOPROLOL TARTRATE 25 MG TABLET PO SCH ×2 (10:26→21:32)
[2019-06-21] MEDS: BUPRENORPHINE HCL 2 MG SUBLINGUAL TABLET SL SCH ×2 (10:26→21:31)
[2019-06-21] MEDS: GABAPENTIN 300 MG CAPSULE PO SCH ×2 (10:26→17:14)
[2019-06-21] MEDS: DOCUSATE SODIUM 100 MG CAPSULE PO SCH ×2 (10:27→17:18)
[2019-06-21] MEDS: NORMAL SALINE 10 ML SDV (SCHEDULED) IV SCH ×2 (10:27→21:29)
[2019-06-21] MEDS: DULOXETINE HCL 20 MG CAPSULE.DR PO SCH ×2 (10:27→17:18)
[2019-06-21] MEDS: TIZANIDINE HCL 4 MG TABLET PO SCH ×3 (10:28→17:15)
[2019-06-21] MEDS: MIDODRINE HCL 5 MG TABLET PO SCH ×2 (10:28→17:15)
[2019-06-21] MEDS: NICOTINE 14 MG/24 HR PATCH.TD24 TD SCH (10:28)
--- NOTE | 2019-06-21 10:49 | PDOC PROGRESS REPORT ---
Subjective Progress Note for:: 06/21/19 Subjective:: HONEY GRESHAM is a 43 year old female with a past medical history of persistent IV drug use, endocarditis, status post tricuspid valve replacement September 2018 at [facility]. She presents with dull retrosternal chest pain which has been present since valve replacement has developed fever and some shortness of breath prompting evaluation emergency room where she is found to have sepsis with hypotension, tachycardia, leukocytosis of 19,000, hypo-natremia hypomagnesemia hypo-kalemia and thrombocytopenia. She started on IV vancomycin and Dr. Bowen hospitalist at [facility] is consulted. 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 Subsequent cultures did not grow. [facility] is currently on regional diversion and are subsequently unable to accept her for transfer. She is referred to the hospitalist for admission. 06/04/2019. No acute events overnight. 06/05/2017. No acute events overnight. Denies any fever, chills, nausea, vomiting, diarrhea, constipation or any urinary symptoms. 06/06/2019. No acute events overnight. Continues to complain of chronic right upper quadrant abdominal pain. Denies any fever, chills, nausea, vomiting, diarrhea, constipation or any urinary symptoms. Patient is p.o. tolerant, ambulatory, having normal bowel and bladder movements. 06/07/2019. No acute events overnight. Significant improvement of abdominal pain after having a large bowel movement this morning. Patient is ambulatory, in no apparent distress, p.o. tolerant. Patient has been noted to have low blood pressure however she is asymptomatic. 06/08/2019. No acute events overnight, patient is comfortably sitting in bed, in no apparent distress, abdominal pain has improved significantly, ambulatory, p. o. tolerant, having normal bowel bladder movement, denies any fever, chills, nausea, vomiting, diarrhea, constipation or any urinary symptoms. Patient hemoglobin is 7.7 today denies any hematemesis, hemoptysis, melena, vaginal bleeding or any hematochezia. Stool guaiac has been negative. We will give 2 PRBC today. 06/09/2019. No acute events overnight. Comfortably sitting in bed enjoying her breakfast. In no apparent distress. Abdominal pain has resolved, ambulatory, having normal bladder and bowel movement. Denies any fever, chills, nausea, vomiting, diarrhea, constipation or any urinary symptoms. 06/14/2019. No acute events overnight. Comfortably sitting in bed eating ice chips, no apparent distress, alert oriented x3, denies any abdominal pain, ambulatory, p.o. tolerant, having normal bowel and bladder movements, denies any fever, chills, nausea, vomiting, diarrhea, or any urinary symptoms. Discussed with patient about the need for PICC line to come out as it was placed on 05/22/2019 and has had several positive blood cultures since then. As per ID recommendation will remove PICC line. 06/15/2019. No acute events overnight. Comfortably sitting in bed enjoying her breakfast. Alert oriented x3, denies any fever, chills, nausea, vomiting, diarrhea, constipation or any urinary symptoms. PICC line removed on 06/14/2019. PICC line tip has been sent to culture. 06/16/2019. No acute events overnight. Comfortably sitting in bed enjoying her breakfast. Alert oriented x3, denies any fever, chills, nausea, vomiting, diarrhea, constipation or any urinary symptoms. 06/17/2018. No acute events overnight. Resting in bed. Complaining bed. Complaining of chronic back pain, alert oriented x3, denies any fever, chills, nausea, vomiting, diarrhea, constipation or any urinary symptoms. 06/18/2019. No acute events overnight. Comfortably sitting in bed, enjoying her breakfast, back pain has improved since being started on Percocet, denies any fever, chills, nausea, vomiting, diarrhea, constipation or any urinary symptoms. P.o. tolerant, ambulatory, having normal bowel bladder movement. 06/19/2019. No acute events overnight. Denies any fever, chills, nausea, v omiting, diarrhea, constipation or any urinary symptoms. P.o. tolerant, ambulatory, having normal bowel bladder movement. 06/20/2019. Complaining of having nightmares overnight, could not get a good night sleep, back pain is improving with tizanidine and Percocet, denies any fever, chills, nausea, shortness of breath, diarrhea or any constipation. P.o. tolerant, ambulatory having normal bladder and bowel movements. 06/21/2019. No acute events overnight. .Denies any fever, chills, nausea, shor tness of breath, diarrhea or any constipation. P.o. tolerant, ambulatory having normal bladder and bowel movements. Reason For Visit: IV DRUG ABUSE,SEPSIS,ENDOCARDITIS Physical Exam Vital Signs: Temp Pulse Resp BP Pulse Ox 98.4 F 73 16 102/55 L 100 06/21/19 00:54 06/21/19 00:54 06/21/19 00:54 06/21/19 00:54 06/21/19 00:54 Intake & Output 06/20/19 06/21/19 06/22/19 06:59 06:59 06:59 Intake Total 840 2514 Balance 840 2514 Weight 90 kg 85.5 kg General appearance: PRESENT: no acute distress, well-developed, well-nourished Head exam: PRESENT: atraumatic, normocephalic Respiratory exam: PRESENT: clear to auscultation sandrita. ABSENT: rales, rhonchi, wheezes Cardiovascular exam: PRESENT: RRR, systolic murmur. ABSENT: diastolic murmur, rubs GI/Abdominal exam: PRESENT: normal bowel sounds, soft. ABSENT: distended, guarding, mass, organolmegaly, rebound, tenderness Extremities exam: PRESENT: full ROM. ABSENT: calf tenderness, clubbing, pedal edema Neurological exam: PRESENT: alert, awake, oriented to person, oriented to place, oriented to time, oriented to situation, CN II-XII grossly intact. ABSENT: motor sensory deficit Results Laboratory Results: 06/14/19 05:05 06/16/19 18:06 05/21/19 05/22/19 05/22/19 23:07 02:06 11:00 Creatine Kinase CK-MB (CK-2) Troponin I 0.098 0.098 0.070 NT-Pro-B Natriuret Pep 05/22/19 05/22/19 05/22/19 14:00 14:35 20:04 Creatine Kinase CK-MB (CK-2) Troponin I Cancelled 0.060 0.037 NT-Pro-B Natriuret Pep 05/28/19 05/28/19 06/02/19 00:15 00:15 00:20 Creatine Kinase < 20 L < 20 L CK-MB (CK-2) 0.49 Troponin I 0.077 NT-Pro-B Natriuret Pep 06/02/19 06/02/19 06/02/19 00:20 06:15 06:15 Creatine Kinase < 20 L CK-MB (CK-2) 1.53 1.39 Troponin I 0.194 0.171 NT-Pro-B Natriuret Pep 06/02/19 06/02/19 13:30 13:30 Creatine Kinase < 20 L CK-MB (CK-2) 1.68 Troponin I 0.175 NT-Pro-B Natriuret Pep 4000 H Impressions: Chest X-Ray 05/21/19 23:04 IMPRESSION: 1. No acute pulmonary findings. 2. Previous sternotomy Guidance Fluoroscopy 05/22/19 00:00 IMPRESSION: SUCCESSFUL PLACEMENT OF A 5 FR DUAL LUMEN 39 CM PICC IN THE LEFT BASILIC VEIN. Interventional Vascular Procedure 05/22/19 00:00 IMPRESSION: SUCCESSFUL PLACEMENT OF A 5 FR DUAL LUMEN 39 CM PICC IN THE LEFT BASILIC VEIN. PICC Line Insertion 05/22/19 00:00 IMPRESSION: SUCCESSFUL PLACEMENT OF A 5 FR DUAL LUMEN 39 CM PICC IN THE LEFT BASILIC VEIN. Abdomen Ultrasound 05/28/19 00:00 IMPRESSION: Mild splenomegaly. No acute findings otherwise. Abdomen/Pelvis CT 06/06/19 00:00 IMPRESSION: 1. Gastric distention and debris. Ileus. Constipation. 2. Normal appendix. No acute abdominopelvic abnormality. Assessment and Plan - Diagnosis (1) Endocarditis Qualifiers: Endocarditis type: infective Is this a current diagnosis for this admission?: Yes Plan: 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 Status post tricuspid valve replacement September 2018 at [facility]. 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 Presented to ED with dull retrosternal chest pain which has been present since valve replacement. Was a started started on IV vancomycin by Dr. Bowen hospitalist at [facility]. 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 [facility] on regional diversion at the admission time and was admitted here at [facility]. 05/21/2019. TTE LVEF 60%. No thrombus or vegetations noted. Severe tricuspid regurgitation. RSVP 48 to 53 mmHg.05/27/2019 Started on empiric broad-spectrum IV antibiotics. PICC line placed on 05/22/2018 on the left basilic vein. PICC line removed 06/14/2019 as per ID recommendation. Please refer to note. Tip was cultured which came back negative. Multiple positive blood cultures for pseudomonas aeruginosa. Last negative blood culture 05/31/2019. Last negative blood culture 05/31/2019. Day 22 of 56 days. Expected completion date 06/29/2019. Day 24 IV cefepime. Day 12 Ciprofloxacin 750 mg p.o. twice daily. Day 30 IV antibiotics. Received 10 days of IV levofloxacin. Switch to ciprofloxacin IV as per ID recommendation. I have been informed that [facility] will be able to do SANJU starting early June. Patient has stable and receiving IV antibiotics SANJU can wait until early June if not will call [facility] again for transfer for SANJU. 06/09/2019. Infectious disease consulted. Recommendations noted. Please refer to note. Unfortunately patient has a drug abuse and could not be sent home on IV antibiotics. 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 Status post tricuspid valve replacement September 2018 at [facility]. Presented to ED with dull retrosternal chest pain which has been present since valve replacement. Was a started started on IV vancomycin by Dr. Bowen hospitalist at [facility]. 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 [facility] on regional diversion at the admission time and was admitted here at [facility]. 05/21/2019. TTE LVEF 60%. No thrombus or vegetations noted. Severe tricuspid regurgitation. RSVP 48 to 53 mmHg.05/27/2019 Started on empiric broad-spectrum IV antibiotics. PICC line placed on 05/22/2018 on the left basilic vein. PICC line removed on 06/14/2019 as per ID recommendation. PICC line tip sent to culture. Multiple positive blood cultures for pseudomonas aeruginosa. Last negative blood culture 05/31/2019. Plan as per #1 (3) IV drug abuse Is this a current diagnosis for this admission?: Yes Plan: Persistent IV drug abuse. Unfortunately patient seems to be abusing drugs while in the hospital. At times patient seems to be too sleepy. UDS on 06/08/2019 for back positive for opiates. Which was confirmed as morphine. Only on Subutex and tramadol in the hospital. Patient was advised on abstinence from recreational drug abuse. Currently on on Subutex since 05/27/2019 and tramadol. Was encouraged to rehab admission one day before discharge. (4) Abdominal pain Qualifiers: Abdominal location: generalized Qualified Code(s): R10.84 - Generalized abdominal pain Is this a current diagnosis for this admission?: Yes Plan: Resolved. CT abdomen pelvis 06/06/2019 found no acute findings except for severe constipation. History of cholecystectomy. History of hepatitis C. History of hepatic steatosis. Lipase WNL. Continue beta-blockers and supportive measures. Continue bowel regimen. Encourage ambulation and high-fiber diet. (5) Anemia Qualifiers: Anemia type: iron deficiency Iron deficiency anemia type: unspecified iron deficiency Qualified Code(s): D50.9 - Iron deficiency anemia, unspecified Is this a current diagnosis for this admission?: Yes Plan: Microcytic. Likely combination of anemia of chronic disease and iron deficiency anemia. Denies any easy bleeding, nosebleeds, hematemesis, hemoptysis, hematochezia, vaginal bleeding or melena. 05/30/2019. Iron panel. Serum iron 18.8, TIBC 270, saturation 7%, ferritin 213, folate 5.53, B12 folate 306, 06/08/2019. Status post 2 PRBC transfusion. Daily H&H, monitor for bleeding, supportive transfusions, ferrous sulfate.
[2019-06-21] MEDS: ATORVASTATIN CALCIUM 40 MG TABLET PO SCH (21:32)
[2019-06-22] MEDS: CEFEPIME 2 GM/D5W RTU 2 GM/50 ML RTUPB IV SCH ×3 (03:22→20:06)
[2019-06-22] MEDS: PANTOPRAZOLE SODIUM 40 MG TABLET.DR PO SCH ×2 (05:52→19:46)
--- NOTE | 2019-06-22 09:02 | PDOC PROGRESS REPORT ---
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 She presents with dull retrosternal chest pain which has been present since valve replacement has developed fever and some shortness of breath prompting evaluation emergency room where she is found to have sepsis with hypotension, tachycardia, leukocytosis of 19,000, hypo-natremia hypomagnesemia hypo-kalemia and thrombocytopenia. She started on IV vancomycin and Dr. Bowen hospitalist at [facility] is consulted. 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 Subsequent cultures did not grow. [facility] is currently on regional diversion and are subsequently unable to accept her for transfer. She is referred to the hospitalist for admission. 06/04/2019. No acute events overnight. 06/05/2017. No acute events overnight. Denies any fever, chills, nausea, vomiting, diarrhea, constipation or any urinary symptoms. 06/06/2019. No acute events overnight. Continues to complain of chronic right upper quadrant abdominal pain. Denies any fever, chills, nausea, vomiting, diarrhea, constipation or any urinary symptoms. Patient is p.o. tolerant, ambulatory, having normal bowel and bladder movements. 06/07/2019. No acute events overnight. Significant improvement of abdominal pain after having a large bowel movement this morning. Patient is ambulatory, in no apparent distress, p.o. tolerant. Patient has been noted to have low blood pressure however she is asymptomatic. 06/08/2019. No acute events overnight, patient is comfortably sitting in bed, in no apparent distress, abdominal pain has improved significantly, ambulatory, p. o. tolerant, having normal bowel bladder movement, denies any fever, chills, nausea, vomiting, diarrhea, constipation or any urinary symptoms. Patient hemoglobin is 7.7 today denies any hematemesis, hemoptysis, melena, vaginal bleeding or any hematochezia. Stool guaiac has been negative. We will give 2 PRBC today. 06/09/2019. No acute events overnight. Comfortably sitting in bed enjoying her breakfast. In no apparent distress. Abdominal pain has resolved, ambulatory, having normal bladder and bowel movement. Denies any fever, chills, nausea, vomiting, diarrhea, constipation or any urinary symptoms. 06/14/2019. No acute events overnight. Comfortably sitting in bed eating ice chips, no apparent distress, alert oriented x3, denies any abdominal pain, ambulatory, p.o. tolerant, having normal bowel and bladder movements, denies any fever, chills, nausea, vomiting, diarrhea, or any urinary symptoms. Discussed with patient about the need for PICC line to come out as it was placed on 05/22/2019 and has had several positive blood cultures since then. As per ID recommendation will remove PICC line. 06/15/2019. No acute events overnight. Comfortably sitting in bed enjoying her breakfast. Alert oriented x3, denies any fever, chills, nausea, vomiting, diarrhea, constipation or any urinary symptoms. PICC line removed on 06/14/2019. PICC line tip has been sent to culture. 06/16/2019. No acute events overnight. Comfortably sitting in bed enjoying her breakfast. Alert oriented x3, denies any fever, chills, nausea, vomiting, diarrhea, constipation or any urinary symptoms. 06/17/2018. No acute events overnight. Resting in bed. Complaining bed. Complaining of chronic back pain, alert oriented x3, denies any fever, chills, nausea, vomiting, diarrhea, constipation or any urinary symptoms. 06/18/2019. No acute events overnight. Comfortably sitting in bed, enjoying her breakfast, back pain has improved since being started on Percocet, denies any fever, chills, nausea, vomiting, diarrhea, constipation or any urinary symptoms. P.o. tolerant, ambulatory, having normal bowel bladder movement. 06/19/2019. No acute events overnight. Denies any fever, chills, nausea, v omiting, diarrhea, constipation or any urinary symptoms. P.o. tolerant, ambulatory, having normal bowel bladder movement. 06/20/2019. Complaining of having nightmares overnight, could not get a good night sleep, back pain is improving with tizanidine and Percocet, denies any fever, chills, nausea, shortness of breath, diarrhea or any constipation. P.o. tolerant, ambulatory having normal bladder and bowel movements. 06/21/2019. No acute events overnight. .Denies any fever, chills, nausea, shor tness of breath, diarrhea or any constipation. P.o. tolerant, ambulatory having normal bladder and bowel movements. 06/22/2019. No acute events overnight, patient comfortably sitting in bed, enjoying her breakfast, stating that once a while she feels palpitation without any chest pain or lightheadedness, denies any fever, chills, nausea, vomiting, diarrhea, constipation or any urinary symptoms. P.o. tolerant, ambulatory, having normal bowel and bladder movements. Reason For Visit: IV DRUG ABUSE,SEPSIS,ENDOCARDITIS Physical Exam Vital Signs: Temp Pulse Resp BP Pulse Ox 97.8 F 68 16 101/61 100 06/22/19 07:51 06/22/19 07:51 06/22/19 00:41 06/22/19 07:51 06/22/19 07:51 Intake & Output 06/21/19 06/22/19 06/23/19 06:59 06:59 06:59 Intake Total 2514 2114 Balance 2514 2114 Weight 85.5 kg 85.7 kg General appearance: PRESENT: no acute distress, well-developed, well-nourished Head exam: PRESENT: atraumatic, normocephalic Respiratory exam: PRESENT: clear to auscultation sandrita. ABSENT: rales, rhonchi, wheezes Cardiovascular exam: PRESENT: RRR, systolic murmur. ABSENT: diastolic murmur, rubs GI/Abdominal exam: PRESENT: normal bowel sounds, soft. ABSENT: distended, guarding, mass, organolmegaly, rebound, tenderness Neurological exam: PRESENT: alert, awake, oriented to person, oriented to place, oriented to time, oriented to situation, CN II-XII grossly intact. ABSENT: motor sensory deficit Results Laboratory Results: 06/14/19 05:05 06/16/19 18:06 05/21/19 05/22/19 05/22/19 23:07 02:06 11:00 Creatine Kinase CK-MB (CK-2) Troponin I 0.098 0.098 0.070 NT-Pro-B Natriuret Pep 05/22/19 05/22/19 05/22/19 14:00 14:35 20:04 Creatine Kinase CK-MB (CK-2) Troponin I Cancelled 0.060 0.037 NT-Pro-B Natriuret Pep 05/28/19 05/28/19 06/02/19 00:15 00:15 00:20 Creatine Kinase < 20 L < 20 L CK-MB (CK-2) 0.49 Troponin I 0.077 NT-Pro-B Natriuret Pep 06/02/19 06/02/19 06/02/19 00:20 06:15 06:15 Creatine Kinase < 20 L CK-MB (CK-2) 1.53 1.39 Troponin I 0.194 0.171 NT-Pro-B Natriuret Pep 06/02/19 06/02/19 13:30 13:30 Creatine Kinase < 20 L CK-MB (CK-2) 1.68 Troponin I 0.175 NT-Pro-B Natriuret Pep 4000 H Impressions: Chest X-Ray 05/21/19 23:04 IMPRESSION: 1. No acute pulmonary findings. 2. Previous sternotomy Guidance Fluoroscopy 05/22/19 00:00 IMPRESSION: SUCCESSFUL PLACEMENT OF A 5 FR DUAL LUMEN 39 CM PICC IN THE LEFT BASILIC VEIN. Interventional Vascular Procedure 05/22/19 00:00 IMPRESSION: SUCCESSFUL PLACEMENT OF A 5 FR DUAL LUMEN 39 CM PICC IN THE LEFT BASILIC VEIN. PICC Line Insertion 05/22/19 00:00 IMPRESSION: SUCCESSFUL PLACEMENT OF A 5 FR DUAL LUMEN 39 CM PICC IN THE LEFT BASILIC VEIN. Abdomen Ultrasound 05/28/19 00:00 IMPRESSION: Mild splenomegaly. No acute findings otherwise. Abdomen/Pelvis CT 06/06/19 00:00 IMPRESSION: 1. Gastric distention and debris. Ileus. Constipation. 2. Normal appendix. No acute abdominopelvic abnormality. Assessment and Plan - Diagnosis (1) Endocarditis Qualifiers: Endocarditis type: infective Is this a current diagnosis for this admission?: Yes Plan: 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 Status post tricuspid valve replacement September 2018 at [facility]. 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 Presented to ED with dull retrosternal chest pain which has been present since valve replacement. Was a started started on IV vancomycin by Dr. Bowen hospitalist at [facility]. 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 [facility] on regional diversion at the admission time and was admitted here at [facility]. 05/21/2019. TTE LVEF 60%. No thrombus or vegetations noted. Severe tricuspid regurgitation. RSVP 48 to 53 mmHg.05/27/2019 Started on empiric broad-spectrum IV antibiotics. PICC line placed on 05/22/2018 on the left basilic vein. PICC line removed 06/14/2019 as per ID recommendation. Please refer to note. Tip was cultured which came back negative. Multiple positive blood cultures for pseudomonas aeruginosa. Last negative blood culture 05/31/2019. Last negative blood culture 05/31/2019. Day 23 of 56 days. Expected completion date 06/29/2019. Day 25 IV cefepime. Day 13 Ciprofloxacin 750 mg p.o. twice daily. Day 31 IV antibiotics. Received 10 days of IV levofloxacin. Switch to ciprofloxacin IV as per ID recommendation. I have been informed that [facility] will be able to do SANJU starting early June. Patient has stable and receiving IV antibiotics SANJU can wait until early June if not will call [facility] again for transfer for SANJU. 06/09/2019. Infectious disease consulted. Recommendations noted. Please refer to note. Unfortunately patient has a drug abuse and could not be sent home on IV antibiotics. (2) Bacteremia due to Pseudomonas Is this a current diagnosis for this admission?: Yes (3) IV drug abuse Is this a current diagnosis for this admission?: Yes (4) Abdominal pain Qualifiers: Abdominal location: generalized Qualified Code(s): R10.84 - Generalized abdominal pain Is this a current diagnosis for this admission?: Yes (5) Anemia Qualifiers: Anemia type: iron deficiency Iron deficiency anemia type: unspecified iron deficiency Qualified Code(s): D50.9 - Iron deficiency anemia, unspecified Is this a current diagnosis for this admission?: Yes (6) Intermittent palpitations Is this a current diagnosis for this admission?: Yes
[2019-06-22] MEDS: BUPRENORPHINE HCL 2 MG SUBLINGUAL TABLET SL SCH ×2 (10:08→22:41)
[2019-06-22] MEDS: ASCORBIC ACID 500 MG TABLET PO SCH ×2 (10:08→20:07)
[2019-06-22] MEDS: GABAPENTIN 300 MG CAPSULE PO SCH ×2 (10:08→20:07)
[2019-06-22] MEDS: METOPROLOL TARTRATE 25 MG TABLET PO SCH ×2 (10:08→22:45)
[2019-06-22] MEDS: CIPROFLOXACIN HCL 750 MG TABLET PO SCH ×2 (10:09→22:41)
[2019-06-22] MEDS: FERROUS SULFATE 325 MG TABLET PO SCH ×2 (10:09→19:48)
[2019-06-22] MEDS: MIDODRINE HCL 5 MG TABLET PO SCH ×2 (10:10→20:07)
[2019-06-22] MEDS: TIZANIDINE HCL 4 MG TABLET PO SCH ×3 (10:10→20:07)
[2019-06-22] MEDS: NICOTINE 14 MG/24 HR PATCH.TD24 TD SCH (10:11)
[2019-06-22] MEDS: LISINOPRIL 5 MG TABLET PO SCH (10:11)
[2019-06-22] MEDS: NORMAL SALINE 10 ML SDV (SCHEDULED) IV SCH ×2 (10:11→22:38)
[2019-06-22] MEDS: DULOXETINE HCL 20 MG CAPSULE.DR PO SCH ×2 (10:12→20:07)
[2019-06-22] MEDS: LACTOBACILLUS ACIDOPHILUS 250 MG TAB PO SCH ×2 (10:12→19:46)
[2019-06-22] MEDS: DOCUSATE SODIUM 100 MG CAPSULE PO SCH ×2 (10:12→19:48)
[2019-06-22] MEDS: OXYCODONE-ACETAMINOPHEN 5-325 MG TABLET PO PRN (10:31)
[2019-06-22] MEDS: ATORVASTATIN CALCIUM 40 MG TABLET PO SCH (22:41)
--- NOTE | 2019-06-23 00:50 | EKG REPORT ---
SEVERITY:- NORMAL ECG - SINUS RHYTHM : Confirmed by: Vonda Frank 23-Jun-2019 00:49:06
[2019-06-23] MEDS: CEFEPIME 2 GM/D5W RTU 2 GM/50 ML RTUPB IV SCH ×3 (01:22→18:14)
[2019-06-23] MEDS: PROMETHAZINE HCL 25 MG TABLET PO PRN ×2 (01:33→18:26)
[2019-06-23] MEDS: OXYCODONE-ACETAMINOPHEN 5-325 MG TABLET PO PRN ×3 (01:34→18:25)
[2019-06-23] MEDS: PANTOPRAZOLE SODIUM 40 MG TABLET.DR PO SCH ×2 (05:05→13:38)
[2019-06-23] MEDS: MIDODRINE HCL 5 MG TABLET PO SCH ×2 (09:52→18:13)
[2019-06-23] MEDS: LISINOPRIL 5 MG TABLET PO SCH (09:56)
[2019-06-23] MEDS: TIZANIDINE HCL 4 MG TABLET PO SCH ×3 (09:58→18:12)
[2019-06-23] MEDS: METOPROLOL TARTRATE 25 MG TABLET PO SCH ×2 (10:00→22:42)
[2019-06-23] MEDS: ASCORBIC ACID 500 MG TABLET PO SCH (10:00)
[2019-06-23] MEDS: FERROUS SULFATE 325 MG TABLET PO SCH (10:00)
[2019-06-23] MEDS: GABAPENTIN 300 MG CAPSULE PO SCH ×2 (10:02→18:14)
[2019-06-23] MEDS: DULOXETINE HCL 20 MG CAPSULE.DR PO SCH (10:06)
[2019-06-23] MEDS: DOCUSATE SODIUM 100 MG CAPSULE PO SCH (10:06)
[2019-06-23] MEDS: LACTOBACILLUS ACIDOPHILUS 250 MG TAB PO SCH ×2 (10:06→18:06)
[2019-06-23] MEDS: NICOTINE 14 MG/24 HR PATCH.TD24 TD SCH (10:07)
[2019-06-23] MEDS ORDERED: DOCUSATE SODIUM 100 MG CAPSULE PO PRN (10:24)
--- NOTE | 2019-06-23 10:29 | PDOC PROGRESS REPORT ---
Subjective Progress Note for:: 06/23/19 Subjective:: HONEY GRESHAM is a 43 year old female with a past medical history of persistent IV drug use, endocarditis, status post tricuspid valve replacement September 2018 at [facility]. She presents with dull retrosternal chest pain which has been present since valve replacement has developed fever and some shortness of breath prompting evaluation emergency room where she is found to have sepsis with hypotension, tachycardia, leukocytosis of 19,000, hypo-natremia hypomagnesemia hypo-kalemia and thrombocytopenia. She started on IV vancomycin and Dr. Bowen hospitalist at [facility] is consulted. 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 Subsequent cultures did not grow. [facility] is currently on regional diversion and are subsequently unable to accept her for transfer. She is referred to the hospitalist for admission. 06/04/2019. No acute events overnight. 06/05/2017. No acute events overnight. Denies any fever, chills, nausea, vomiting, diarrhea, constipation or any urinary symptoms. 06/06/2019. No acute events overnight. Continues to complain of chronic right upper quadrant abdominal pain. Denies any fever, chills, nausea, vomiting, diarrhea, constipation or any urinary symptoms. Patient is p.o. tolerant, ambulatory, having normal bowel and bladder movements. 06/07/2019. No acute events overnight. Significant improvement of abdominal pain after having a large bowel movement this morning. Patient is ambulatory, in no apparent distress, p.o. tolerant. Patient has been noted to have low blood pressure however she is asymptomatic. 06/08/2019. No acute events overnight, patient is comfortably sitting in bed, in no apparent distress, abdominal pain has improved significantly, ambulatory, p. o. tolerant, having normal bowel bladder movement, denies any fever, chills, nausea, vomiting, diarrhea, constipation or any urinary symptoms. Patient hemoglobin is 7.7 today denies any hematemesis, hemoptysis, melena, vaginal bleeding or any hematochezia. Stool guaiac has been negative. We will give 2 PRBC today. 06/09/2019. No acute events overnight. Comfortably sitting in bed enjoying her breakfast. In no apparent distress. Abdominal pain has resolved, ambulatory, having normal bladder and bowel movement. Denies any fever, chills, nausea, vomiting, diarrhea, constipation or any urinary symptoms. 06/14/2019. No acute events overnight. Comfortably sitting in bed eating ice chips, no apparent distress, alert oriented x3, denies any abdominal pain, ambulatory, p.o. tolerant, having normal bowel and bladder movements, denies any fever, chills, nausea, vomiting, diarrhea, or any urinary symptoms. Discussed with patient about the need for PICC line to come out as it was placed on 05/22/2019 and has had several positive blood cultures since then. As per ID recommendation will remove PICC line. 06/15/2019. No acute events overnight. Comfortably sitting in bed enjoying her breakfast. Alert oriented x3, denies any fever, chills, nausea, vomiting, diarrhea, constipation or any urinary symptoms. PICC line removed on 06/14/2019. PICC line tip has been sent to culture. 06/16/2019. No acute events overnight. Comfortably sitting in bed enjoying her breakfast. Alert oriented x3, denies any fever, chills, nausea, vomiting, diarrhea, constipation or any urinary symptoms. 06/17/2018. No acute events overnight. Resting in bed. Complaining bed. Complaining of chronic back pain, alert oriented x3, denies any fever, chills, nausea, vomiting, diarrhea, constipation or any urinary symptoms. 06/18/2019. No acute events overnight. Comfortably sitting in bed, enjoying her breakfast, back pain has improved since being started on Percocet, denies any fever, chills, nausea, vomiting, diarrhea, constipation or any urinary symptoms. P.o. tolerant, ambulatory, having normal bowel bladder movement. 06/19/2019. No acute events overnight. Denies any fever, chills, nausea, v omiting, diarrhea, constipation or any urinary symptoms. P.o. tolerant, ambulatory, having normal bowel bladder movement. 06/20/2019. Complaining of having nightmares overnight, could not get a good night sleep, back pain is improving with tizanidine and Percocet, denies any fever, chills, nausea, shortness of breath, diarrhea or any constipation. P.o. tolerant, ambulatory having normal bladder and bowel movements. 06/21/2019. No acute events overnight. Denies any fever, chills, nausea, short ness of breath, diarrhea or any constipation. P.o. tolerant, ambulatory having normal bladder and bowel movements. 06/22/2019. No acute events overnight. Denies any fever, chills, nausea, shortness of breath, diarrhea or any constipation. P.o. tolerant, ambulatory having normal bladder and bowel movements. 06/23/2019. No acute events overnight, patient is sitting in bed, pleasant, enjoying her breakfast, lower back pain is improving, denies any ,nausea, vomiting, diarrhea, constipation or any urinary symptoms. Has been refusing her docusate, Cymbalta, pantoprazole and was seems to be discontinued as Cymbalta makes her very anxious. Reason For Visit: IV DRUG ABUSE,SEPSIS,ENDOCARDITIS Physical Exam Vital Signs: Temp Pulse Resp BP Pulse Ox 98.3 F 70 16 97/52 L 98 06/23/19 07:42 06/23/19 07:42 06/23/19 07:42 06/23/19 07:42 06/23/19 07:42 Intake & Output 06/22/19 06/23/19 06/24/19 06:59 06:59 06:59 Intake Total 2114 2368 Balance 2114 2368 Weight 85.7 kg 87.9 kg General appearance: PRESENT: no acute distress, obese, well-developed, well- nourished Head exam: PRESENT: atraumatic, normocephalic Respiratory exam: PRESENT: clear to auscultation sandrita. ABSENT: rales, rhonchi, wheezes Cardiovascular exam: PRESENT: RRR, systolic murmur. ABSENT: diastolic murmur, rubs GI/Abdominal exam: PRESENT: normal bowel sounds, soft. ABSENT: distended, guarding, mass, organolmegaly, rebound, tenderness Extremities exam: PRESENT: full ROM. ABSENT: calf tenderness, clubbing, pedal edema Neurological exam: PRESENT: alert, awake, oriented to person, oriented to place, oriented to time, oriented to situation, CN II-XII grossly intact. ABSENT: motor sensory deficit Results Laboratory Results: 06/14/19 05:05 06/16/19 18:06 05/21/19 05/22/19 05/22/19 23:07 02:06 11:00 Creatine Kinase CK-MB (CK-2) Troponin I 0.098 0.098 0.070 NT-Pro-B Natriuret Pep 05/22/19 05/22/19 05/22/19 14:00 14:35 20:04 Creatine Kinase CK-MB (CK-2) Troponin I Cancelled 0.060 0.037 NT-Pro-B Natriuret Pep 05/28/19 05/28/19 06/02/19 00:15 00:15 00:20 Creatine Kinase < 20 L < 20 L CK-MB (CK-2) 0.49 Troponin I 0.077 NT-Pro-B Natriuret Pep 06/02/19 06/02/19 06/02/19 00:20 06:15 06:15 Creatine Kinase < 20 L CK-MB (CK-2) 1.53 1.39 Troponin I 0.194 0.171 NT-Pro-B Natriuret Pep 06/02/19 06/02/19 13:30 13:30 Creatine Kinase < 20 L CK-MB (CK-2) 1.68 Troponin I 0.175 NT-Pro-B Natriuret Pep 4000 H Impressions: Chest X-Ray 05/21/19 23:04 IMPRESSION: 1. No acute pulmonary findings. 2. Previous sternotomy Guidance Fluoroscopy 05/22/19 00:00 IMPRESSION: SUCCESSFUL PLACEMENT OF A 5 FR DUAL LUMEN 39 CM PICC IN THE LEFT BASILIC VEIN. Interventional Vascular Procedure 05/22/19 00:00 IMPRESSION: SUCCESSFUL PLACEMENT OF A 5 FR DUAL LUMEN 39 CM PICC IN THE LEFT BASILIC VEIN. PICC Line Insertion 05/22/19 00:00 IMPRESSION: SUCCESSFUL PLACEMENT OF A 5 FR DUAL LUMEN 39 CM PICC IN THE LEFT BASILIC VEIN. Abdomen Ultrasound 05/28/19 00:00 IMPRESSION: Mild splenomegaly. No acute findings otherwise. Abdomen/Pelvis CT 06/06/19 00:00 IMPRESSION: 1. Gastric distention and debris. Ileus. Constipation. 2. Normal appendix. No acute abdominopelvic abnormality. Assessment and Plan - Diagnosis (1) Endocarditis Qualifiers: Endocarditis type: infective Is this a current diagnosis for this admission?: Yes Plan: 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 Status post tricuspid valve replacement September 2018 at [facility]. 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 Presented to ED with dull retrosternal chest pain which has been present since valve replacement. Was a started started on IV vancomycin by Dr. Bowen hospitalist at [facility]. 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 [facility] on regional diversion at the admission time and was admitted here at [facility]. 05/21/2019. TTE LVEF 60%. No thrombus or vegetations noted. Severe tricuspid regurgitation. RSVP 48 to 53 mmHg.05/27/2019 Started on empiric broad-spectrum IV antibiotics. PICC line placed on 05/22/2018 on the left basilic vein. PICC line removed 06/14/2019 as per ID recommendation. Please refer to note. Tip was cultured which came back negative. Multiple positive blood cultures for pseudomonas aeruginosa. Last negative blood culture 05/31/2019. Last negative blood culture 05/31/2019. Day 23 of 56 days. Expected completion date 07/30/2019. Day 25 IV cefepime. Day 13 Ciprofloxacin 750 mg p.o. twice daily. Day 31 IV antibiotics. Received 10 days of IV levofloxacin. Switch to ciprofloxacin IV as per ID recommendation. I have been informed that [facility] will be able to do SANJU starting early June. Patient has stable and receiving IV antibiotics SANJU can wait until early June if not will call [facility] again for transfer for SANJU. 06/09/2019. Infectious disease consulted. Recommendations noted. Please refer to note. Unfortunately patient has a drug abuse and could not be sent home on IV antibiotics. 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 Status post tricuspid valve replacement September 2018 at [facility]. Presented to ED with dull retrosternal chest pain which has been present since valve replacement. Was a started started on IV vancomycin by Dr. Bowen hospitalist at [facility]. 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 [facility] on regional diversion at the admission time and was admitted here at [facility]. 05/21/2019. TTE LVEF 60%. No thrombus or vegetations noted. Severe tricuspid regurgitation. RSVP 48 to 53 mmHg.05/27/2019 Started on empiric broad-spectrum IV antibiotics. PICC line placed on 05/22/2018 on the left basilic vein. PICC line removed on 06/14/2019 as per ID recommendation. PICC line tip sent to culture. Multiple positive blood cultures for pseudomonas aeruginosa. Last negative blood culture 05/31/2019. Plan as per #1 (3) IV drug abuse Is this a current diagnosis for this admission?: Yes Plan: Persistent IV drug abuse. Unfortunately patient seems to be abusing drugs while in the hospital. At times patient seems to be too sleepy. UDS on 06/08/2019 for back positive for opiates. Which was confirmed as morphine. Only on Subutex and tramadol in the hospital. Patient was advised on abstinence from recreational drug abuse. Currently on on Subutex since 05/27/2019 and tramadol. Was encouraged to rehab admission one day before discharge. (4) Abdominal pain Qualifiers: Abdominal location: generalized Qualified Code(s): R10.84 - Generalized abdominal pain Is this a current diagnosis for this admission?: Yes Plan: Resolved. CT abdomen pelvis 06/06/2019 found no acute findings except for severe constipation. History of cholecystectomy. History of hepatitis C. History of hepatic steatosis. Lipase WNL. Continue beta-blockers and supportive measures. Continue bowel regimen. Encourage ambulation and high-fiber diet. (5) Anemia Qualifiers: Anemia type: iron deficiency Iron deficiency anemia type: unspecified iron deficiency Qualified Code(s): D50.9 - Iron deficiency anemia, unspecified Is this a current diagnosis for this admission?: Yes Plan: Microcytic. Likely combination of anemia of chronic disease and iron deficiency anemia. Denies any easy bleeding, nosebleeds, hematemesis, hemoptysis, hematochezia, vaginal bleeding or melena. 05/30/2019. Iron panel. Serum iron 18.8, TIBC 270, saturation 7%, ferritin 213, folate 5.53, B12 folate 306, 06/08/2019. Status post 2 PRBC transfusion. Daily H&H, monitor for bleeding, supportive transfusions, ferrous sulfate.
[2019-06-23] MEDS: NORMAL SALINE 10 ML SDV (SCHEDULED) IV SCH ×3 (11:07→22:43)
[2019-06-23] MEDS: BUPRENORPHINE HCL 2 MG SUBLINGUAL TABLET SL SCH ×2 (11:11→22:42)
[2019-06-23] MEDS: CIPROFLOXACIN HCL 750 MG TABLET PO SCH ×2 (11:12→22:42)
--- NOTE | 2019-06-23 11:27 | RADIOLOGY REPORT (SQ) ---
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 TECHNIQUE: Fluoroscopic and ultrasound guided PICC placement. LIMITATIONS: None. PROCEDURE: After written consent and assessment were obtained, the patient was brought into the fluo roscopy room and placed supine on the table. Ultrasound evaluation of potential access sites were per formed. After successfully identifying a patent left basilic vein, the left arm was prepped and drape d in a sterile fashion along with the ultrasound probe. The entry site was anesthetized with 1% lidoc jesus. A 21 gauge 7 cm needle was advanced through the skin and into the basilic vein under live ultra sound guidance. An ultrasound image was saved to PACS confirming access site. A .018 guide wire was then inserted through the needle and into the venous system. The needle was then removed and an 11 b lade scalpel was used to make a 1cm skin incision. A 5 fr peel-away sheath was advanced over the wir e and into the venous system. A measurement was then made using the existing wire and live fluoroscop ic guidance. The wire was then removed and trimmed. The PICC was advanced through the peel-away sheat h and into the venous system. The peel-away sheath was removed and the catheter was adhered to the pa tients arm with a stat lock. The catheter was then aspirated and flushed and a sterile bandage was pl aced over the access site. A fluoroscopic spot image was saved to PACS confirming the catheter tip w ithin the superior vena cava. IMPRESSION: SUCCESSFUL PLACEMENT OF A 5 FR DUAL LUMEN 38 CM PICC IN THE LEFT BASILIC VEIN. COMMENT: Patient medication list reviewed: Yes- Quality ID# [id number]:Eligible professional attests to doc umenting in the medical record they obtained, updated, or reviewed the patient's current medications. . Quality ID 145: Final reports for procedures using fluoroscopy that document radiation exposure arias liliana, or exposure time and number of fluorographic images (if radiation exposure indices are not avail able) Quality ID #76: The patient was prepped and draped using maximum sterile barrier technique including cap, mask, sterile gown, sterile gloves, a large sterile sheet, hand hygiene, and 2% Chlorhexidine fo r cutaneous antisepsis. When ultrasound is used, sterile ultrasound techniques are followed requiring sterile gel and sterile probes. TECHNICAL DOCUMENTATION: JOB ID: [id number] [employer]- All Rights Reserved rev-02/08 Reading location - IP/workstation name: [email or web address]
--- NOTE | 2019-06-23 11:27 | RADIOLOGY REPORT (SQ) ---
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 TECHNIQUE: Fluoroscopic and ultrasound guided PICC placement. LIMITATIONS: None. PROCEDURE: After written consent and assessment were obtained, the patient was brought into the fluo roscopy room and placed supine on the table. Ultrasound evaluation of potential access sites were per formed. After successfully identifying a patent left basilic vein, the left arm was prepped and drape d in a sterile fashion along with the ultrasound probe. The entry site was anesthetized with 1% lidoc jesus. A 21 gauge 7 cm needle was advanced through the skin and into the basilic vein under live ultra sound guidance. An ultrasound image was saved to PACS confirming access site. A .018 guide wire was then inserted through the needle and into the venous system. The needle was then removed and an 11 b lade scalpel was used to make a 1cm skin incision. A 5 fr peel-away sheath was advanced over the wir e and into the venous system. A measurement was then made using the existing wire and live fluoroscop ic guidance. The wire was then removed and trimmed. The PICC was advanced through the peel-away sheat h and into the venous system. The peel-away sheath was removed and the catheter was adhered to the pa tients arm with a stat lock. The catheter was then aspirated and flushed and a sterile bandage was pl aced over the access site. A fluoroscopic spot image was saved to PACS confirming the catheter tip w ithin the superior vena cava. IMPRESSION: SUCCESSFUL PLACEMENT OF A 5 FR DUAL LUMEN 38 CM PICC IN THE LEFT BASILIC VEIN. COMMENT: Patient medication list reviewed: Yes- Quality ID# [id number]:Eligible professional attests to doc umenting in the medical record they obtained, updated, or reviewed the patient's current medications. . Quality ID 145: Final reports for procedures using fluoroscopy that document radiation exposure arias liliana, or exposure time and number of fluorographic images (if radiation exposure indices are not avail able) Quality ID #76: The patient was prepped and draped using maximum sterile barrier technique including cap, mask, sterile gown, sterile gloves, a large sterile sheet, hand hygiene, and 2% Chlorhexidine fo r cutaneous antisepsis. When ultrasound is used, sterile ultrasound techniques are followed requiring sterile gel and sterile probes. TECHNICAL DOCUMENTATION: JOB ID: [id number] [employer]- All Rights Reserved rev-02/08 Reading location - IP/workstation name: [email or web address]
--- NOTE | 2019-06-23 11:27 | RADIOLOGY REPORT (SQ) ---
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 TECHNIQUE: Fluoroscopic and ultrasound guided PICC placement. LIMITATIONS: None. PROCEDURE: After written consent and assessment were obtained, the patient was brought into the fluo roscopy room and placed supine on the table. Ultrasound evaluation of potential access sites were per formed. After successfully identifying a patent left basilic vein, the left arm was prepped and drape d in a sterile fashion along with the ultrasound probe. The entry site was anesthetized with 1% lidoc jesus. A 21 gauge 7 cm needle was advanced through the skin and into the basilic vein under live ultra sound guidance. An ultrasound image was saved to PACS confirming access site. A .018 guide wire was then inserted through the needle and into the venous system. The needle was then removed and an 11 b lade scalpel was used to make a 1cm skin incision. A 5 fr peel-away sheath was advanced over the wir e and into the venous system. A measurement was then made using the existing wire and live fluoroscop ic guidance. The wire was then removed and trimmed. The PICC was advanced through the peel-away sheat h and into the venous system. The peel-away sheath was removed and the catheter was adhered to the pa tients arm with a stat lock. The catheter was then aspirated and flushed and a sterile bandage was pl aced over the access site. A fluoroscopic spot image was saved to PACS confirming the catheter tip w ithin the superior vena cava. IMPRESSION: SUCCESSFUL PLACEMENT OF A 5 FR DUAL LUMEN 38 CM PICC IN THE LEFT BASILIC VEIN. COMMENT: Patient medication list reviewed: Yes- Quality ID# 130:Eligible professional attests to doc umenting in the medical record they obtained, updated, or reviewed the patient's current medications. . Quality ID 145: Final reports for procedures using fluoroscopy that document radiation exposure arias liliana, or exposure time and number of fluorographic images (if radiation exposure indices are not avail able) Quality ID #76: The patient was prepped and draped using maximum sterile barrier technique including cap, mask, sterile gown, sterile gloves, a large sterile sheet, hand hygiene, and 2% Chlorhexidine fo r cutaneous antisepsis. When ultrasound is used, sterile ultrasound techniques are followed requiring sterile gel and sterile probes. TECHNICAL DOCUMENTATION: JOB ID: [id number] [employer], [employer]- All Rights Reserved rev-02/08 Reading location - IP/workstation name: [email or web address]
[2019-06-23] MEDS ORDERED: NORMAL SALINE 10 ML SDV (AFTER EACH USE) IV PRN (11:30)
[2019-06-23] MEDS ORDERED: FERROUS SULFATE 325 MG TABLET PO SCH (12:00)
[2019-06-23] MEDS: ATORVASTATIN CALCIUM 40 MG TABLET PO SCH (22:42)
[2019-06-24] MEDS: PROMETHAZINE HCL 25 MG TABLET PO PRN ×3 (00:41→14:14)
[2019-06-24] MEDS: OXYCODONE-ACETAMINOPHEN 5-325 MG TABLET PO PRN ×3 (00:41→14:11)
[2019-06-24] MEDS: CEFEPIME 2 GM/D5W RTU 2 GM/50 ML RTUPB IV SCH ×3 (01:02→18:58)
[2019-06-24] MEDS: PANTOPRAZOLE SODIUM 40 MG TABLET.DR PO SCH (05:02)
[2019-06-24] MEDS: NORMAL SALINE 10 ML SDV (AFTER EACH USE) IV PRN (08:40)
[2019-06-24 09:00] LABS: ABSOLUTE EOSINOPHILS # (AUTO) 0.2 10^3/uL (0.0-0.6); ABSOLUTE LYMPHOCYTES (AUTO) 2.1 10^3/uL (0.5-4.7); ABSOLUTE MONOCYTES (AUTO) 0.8 10^3/uL (0.1-1.4); ABSOLUTE NEUT (AUTO) 7.2 10^3/uL (1.7-8.2); BASOPHILS % (AUTO) 0.5 % (0-2); EOSINOPHILS % (AUTO) 1.5 % (0-6); HEMOGLOBIN 11.4 g/dL (12.0-15.5); LYMPHOCYTES % (AUTO) 20.5 % (13-45); MEAN CORPUSCULAR HEMOGLOBIN 26.9 pg (27.0-33.4); MEAN CORPUSCULAR HGB CONC 32.6 g/dL (32.0-36.0); MEAN CORPUSCULAR VOLUME 83 fl (80-97); MONOCYTES % (AUTO) 7.9 % (3-13); PLATELET COUNT 263 10^3/uL (150-450); RED BLOOD COUNT 4.24 10^6/uL (3.72-5.28); RED CELL DISTRIBUTION WIDTH 17.7 % (11.5-14.0); SEGMENTED NEUTROPHILS % (AUTO) 69.6 % (42-78); TOTAL CELLS COUNTED % (AUTO) 100 %; WHITE BLOOD COUNT 10.3 10^3/uL (4.0-10.5)
[2019-06-24] MEDS: BUPRENORPHINE HCL 2 MG SUBLINGUAL TABLET SL SCH ×2 (09:09→22:37)
[2019-06-24] MEDS: MIDODRINE HCL 5 MG TABLET PO SCH ×2 (09:10→18:46)
[2019-06-24] MEDS: LISINOPRIL 5 MG TABLET PO SCH (09:11)
[2019-06-24] MEDS: GABAPENTIN 300 MG CAPSULE PO SCH ×2 (09:13→18:56)
[2019-06-24] MEDS: METOPROLOL TARTRATE 25 MG TABLET PO SCH ×2 (09:14→22:36)
[2019-06-24] MEDS: FERROUS SULFATE 325 MG TABLET PO SCH (09:16)
[2019-06-24] MEDS: CIPROFLOXACIN HCL 750 MG TABLET PO SCH ×2 (09:16→22:43)
[2019-06-24] MEDS: TIZANIDINE HCL 4 MG TABLET PO SCH ×3 (09:17→18:48)
[2019-06-24 09:23] LABS: ALBUMIN 3.8 g/dL (3.5-5.0); ALKALINE PHOSPHATASE 224 U/L (38-126); ANION GAP 9 (5-19); ASPARTATE AMINO TRANSFERASE 549 U/L (14-36); BILIRUBIN,DIRECT 0.3 mg/dL (0.0-0.4); BILIRUBIN,TOTAL 0.8 mg/dL (0.2-1.3); BLOOD UREA NITROGEN 27 mg/dL (7-20); CARBON DIOXIDE 24 mmol/L (22-30); CHLORIDE 105 mmol/L (98-107); GLUCOSE 91 mg/dL (75-110); POTASSIUM 4.8 mmol/L (3.6-5.0); TOTAL PROTEIN 7.7 g/dL (6.3-8.2)
[2019-06-24] MEDS: NORMAL SALINE 10 ML SDV (SCHEDULED) IV SCH ×4 (09:24→22:49)
[2019-06-24] MEDS: NICOTINE 14 MG/24 HR PATCH.TD24 TD SCH (10:40)
[2019-06-24] MEDS: LACTOBACILLUS ACIDOPHILUS 250 MG TAB PO SCH ×2 (10:40→18:57)
--- NOTE | 2019-06-24 12:47 | PDOC PROGRESS REPORT ---
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 She presents with dull retrosternal chest pain which has been present since valve replacement has developed fever and some shortness of breath prompting evaluation emergency room where she is found to have sepsis with hypotension, tachycardia, leukocytosis of 19,000, hypo-natremia hypomagnesemia hypo-kalemia and thrombocytopenia. She started on IV vancomycin and Dr. Bowen hospitalist at [facility] is consulted. 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 Subsequent cultures did not grow. [facility] is currently on regional diversion and are subsequently unable to accept her for transfer. She is referred to the hospitalist for admission. 06/04/2019. No acute events overnight. 06/05/2017. No acute events overnight. Denies any fever, chills, nausea, v omiting, diarrhea, constipation or any urinary symptoms. 06/06/2019. No acute events overnight. Continues to complain of chronic right upper quadrant abdominal pain. Denies any fever, chills, nausea, vomiting, diarrhea, constipation or any urinary symptoms. Patient is p.o. tolerant, ambulatory, having normal bowel and bladder movements. 06/07/2019. No acute events overnight. Significant improvement of abdominal pain after having a large bowel movement this morning. Patient is ambulatory, in no apparent distress, p.o. tolerant. Patient has been noted to have low blood pressure however she is asymptomatic. 06/08/2019. No acute events overnight, patient is comfortably sitting in bed, in no apparent distress, abdominal pain has improved significantly, ambulatory, p.o. tolerant, having normal bowel bladder movement, denies any fever, chills, nausea, vomiting, diarrhea, constipation or any urinary symptoms. Patient hemoglobin is 7.7 today denies any hematemesis, hemoptysis, melena, vaginal bleeding or any hematochezia. Stool guaiac has been negative. We will give 2 PRBC today. 06/09/2019. No acute events overnight. Comfortably sitting in bed enjoying her breakfast. In no apparent distress. Abdominal pain has resolved, ambulatory, having normal bladder and bowel movement. Denies any fever, chills, nausea, vomiting, diarrhea, constipation or any urinary symptoms. 06/14/2019. No acute events overnight. Comfortably sitting in bed eating ice chips, no apparent distress, alert oriented x3, denies any abdominal pain, ambulatory, p.o. tolerant, having normal bowel and bladder movements, denies any fever, chills, nausea, vomiting, diarrhea, or any urinary symptoms. Discussed with patient about the need for PICC line to come out as it was placed on 05/22/2019 and has had several positive blood cultures since then. As per ID recommendation will remove PICC line. 06/15/2019. No acute events overnight. Comfortably sitting in bed enjoying her breakfast. Alert oriented x3, denies any fever, chills, nausea, vomiting, diarrhea, constipation or any urinary symptoms. PICC line removed on 06/14/2019. PICC line tip has been sent to culture. 06/16/2019. No acute events overnight. Comfortably sitting in bed enjoying her breakfast. Alert oriented x3, denies any fever, chills, nausea, vomiting, diarrhea, constipation or any urinary symptoms. 06/17/2018. No acute events overnight. Resting in bed. Complaining bed. Complaining of chronic back pain, alert oriented x3, denies any fever, chills, nausea, vomiting, diarrhea, constipation or any urinary symptoms. 06/18/2019. No acute events overnight. Comfortably sitting in bed, enjoying her breakfast, back pain has improved since being started on Percocet, denies any fever, chills, nausea, vomiting, diarrhea, constipation or any urinary symptoms. P.o. tolerant, ambulatory, having normal bowel bladder movement. 06/19/2019. No acute events overnight. Denies any fever, chills, nausea, vomiting, diarrhea, constipation or any urinary symptoms. P.o. tolerant, ambulatory, having normal bowel bladder movement. 06/20/2019. Complaining of having nightmares overnight, could not get a good night sleep, back pain is improving with tizanidine and Percocet, denies any fever, chills, nausea, shortness of breath, diarrhea or any constipation. P.o. tolerant, ambulatory having normal bladder and bowel movements. 06/21/2019. No acute events overnight. Denies any fever, chills, nausea, shortness of breath, diarrhea or any constipation. P.o. tolerant, ambulatory having normal bladder and bowel movements. 06/22/2019. No acute events overnight. Denies any fever, chills, nausea, shortness of breath, diarrhea or any constipation. P.o. tolerant, ambulatory having normal bladder and bowel movements. 06/23/2019. No acute events overnight, patient is sitting in bed, pleasant, enjoying her breakfast, lower back pain is improving, denies any ,nausea, vomiting, diarrhea, constipation or any urinary symptoms. Has been refusing her docusate, Cymbalta, pantoprazole and was seems to be discontinued as Cymbalta makes her very anxious. 06/24/2019-no acute events in the last 24 hours. Afebrile. Patient is com fortable in the bed talking to the family members on the phone. Reason For Visit: IV DRUG ABUSE,SEPSIS,ENDOCARDITIS Physical Exam Vital Signs: Temp Pulse Resp BP Pulse Ox 97.9 F 62 13 108/57 L 100 06/24/19 08:00 06/24/19 08:00 06/24/19 08:00 06/24/19 08:00 06/24/19 08:00 Intake & Output 06/23/19 06/24/19 06/25/19 06:59 06:59 06:59 Intake Total 2368 1924 Balance 2368 1924 Weight 87.9 kg 86.5 kg General appearance: PRESENT: no acute distress, obese Head exam: PRESENT: atraumatic Eye exam: PRESENT: PERRLA Mouth exam: PRESENT: dry mucosa Teeth exam: PRESENT: poor dentation Neck exam: ABSENT: carotid bruit, JVD, lymphadenopathy, thyromegaly Respiratory exam: PRESENT: clear to auscultation sandrita. ABSENT: rales, rhonchi, wheezes Cardiovascular exam: PRESENT: RRR, systolic murmur. ABSENT: diastolic murmur, rubs Vascular exam: PRESENT: normal capillary refill GI/Abdominal exam: PRESENT: normal bowel sounds, soft. ABSENT: distended, guarding, mass, organolmegaly, rebound, tenderness Rectal exam: PRESENT: deferred Neurological exam: PRESENT: alert, awake, oriented to person, oriented to place, oriented to time, oriented to situation, CN II-XII grossly intact. ABSENT: motor sensory deficit Psychiatric exam: PRESENT: appropriate affect, normal mood. ABSENT: homicidal ideation, suicidal ideation Results Laboratory Results: 06/24/19 08:30 06/24/19 08:30 06/24/19 06/24/19 08:30 08:30 WBC 10.3 RBC 4.24 Hgb 11.4 L Hct 35.0 L MCV 83 MCH 26.9 L MCHC 32.6 RDW 17.7 H Plt Count 263 Seg Neutrophils % 69.6 Sodium 137.7 Potassium 4.8 Chloride 105 Carbon Dioxide 24 Anion Gap 9 BUN 27 H Creatinine 0.90 Est GFR ( Amer) > 60 Glucose 91 Calcium 10.0 Magnesium 1.9 Total Bilirubin 0.8 AST 549 H Alkaline Phosphatase 224 H Total Protein 7.7 Albumin 3.8 05/21/19 05/22/19 05/22/19 23:07 02:06 11:00 Creatine Kinase CK-MB (CK-2) Troponin I 0.098 0.098 0.070 NT-Pro-B Natriuret Pep 05/22/19 05/22/19 05/22/19 14:00 14:35 20:04 Creatine Kinase CK-MB (CK-2) Troponin I Cancelled 0.060 0.037 NT-Pro-B Natriuret Pep 05/28/19 05/28/19 06/02/19 00:15 00:15 00:20 Creatine Kinase < 20 L < 20 L CK-MB (CK-2) 0.49 Troponin I 0.077 NT-Pro-B Natriuret Pep 06/02/19 06/02/19 06/02/19 00:20 06:15 06:15 Creatine Kinase < 20 L CK-MB (CK-2) 1.53 1.39 Troponin I 0.194 0.171 NT-Pro-B Natriuret Pep 06/02/19 06/02/19 13:30 13:30 Creatine Kinase < 20 L CK-MB (CK-2) 1.68 Troponin I 0.175 NT-Pro-B Natriuret Pep 4000 H Impressions: Chest X-Ray 05/21/19 23:04 IMPRESSION: 1. No acute pulmonary findings. 2. Previous sternotomy Abdomen Ultrasound 05/28/19 00:00 IMPRESSION: Mild splenomegaly. No acute findings otherwise. Abdomen/Pelvis CT 06/06/19 00:00 IMPRESSION: 1. Gastric distention and debris. Ileus. Constipation. 2. Normal appendix. No acute abdominopelvic abnormality. Guidance Fluoroscopy 06/23/19 00:00 IMPRESSION: SUCCESSFUL PLACEMENT OF A 5 FR DUAL LUMEN 38 CM PICC IN THE LEFT BASILIC VEIN. Interventional Vascular Procedure 06/23/19 00:00 IMPRESSION: SUCCESSFUL PLACEMENT OF A 5 FR DUAL LUMEN 38 CM PICC IN THE LEFT BASILIC VEIN. PICC Line Insertion 06/23/19 00:00 IMPRESSION: SUCCESSFUL PLACEMENT OF A 5 FR DUAL LUMEN 38 CM PICC IN THE LEFT BASILIC VEIN. Assessment and Plan - Diagnosis (1) Endocarditis Qualifiers: Endocarditis type: infective Is this a current diagnosis for this admission?: Yes Plan: 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 Status post tricuspid valve replacement September 2018 at [facility]. 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 Presented to ED with dull retrosternal chest pain which has been present since valve replacement. Was a started started on IV vancomycin by Dr. Bowen hospitalist at [facility]. 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 [facility] on regional diversion at the admission time and was admitted here at [facility]. 05/21/2019. TTE LVEF 60%. No thrombus or vegetations noted. Severe tricuspid regurgitation. RSVP 48 to 53 mmHg.05/27/2019 Started on empiric broad-spectrum IV antibiotics. PICC line placed on 05/22/2018 on the left basilic vein. PICC line removed 06/14/2019 as per ID recommendation. Please refer to note. Tip was cultured which came back negative. Multiple positive blood cultures for pseudomonas aeruginosa. Last negative blood culture 05/31/2019. Last negative blood culture 05/31/2019. Day 23 of 56 days. Expected completion date 07/30/2019. Day 25 IV cefepime. Day 13 Ciprofloxacin 750 mg p.o. twice daily. Day 31 IV antibiotics. Received 10 days of IV levofloxacin. Switch to ciprofloxacin IV as per ID recommendation. I have been informed that [facility] will be able to do SANJU starting early June. Patient has stable and receiving IV antibiotics SANJU can wait until early June if not will call [facility] again for transfer for SANJU. 06/09/2019. Infectious disease consulted. Recommendations noted. Please refer to note. Unfortunately patient has a drug abuse and could not be sent home on IV antibiotics. 06/24/2019-patient has endocarditis not a candidate to go home with an IV antibiotic therapy. Patient may need a SANJU this week. pt is presently on IV cefepime. 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 Status post tricuspid valve replacement September 2018 at [facility]. Presented to ED with dull retrosternal chest pain which has been present since valve replacement. Was a started started on IV vancomycin by Dr. Bowen hospitalist at [facility]. 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 [facility] on regional diversion at the admission time and was admitted here at [facility]. 05/21/2019. TTE LVEF 60%. No thrombus or vegetations noted. Severe tricuspid regurgitation. RSVP 48 to 53 mmHg.05/27/2019 Started on empiric broad-spectrum IV antibiotics. PICC line placed on 05/22/2018 on the left basilic vein. PICC line removed on 06/14/2019 as per ID recommendation. PICC line tip sent to culture. Multiple positive blood cultures for pseudomonas aeruginosa. Last negative blood culture 05/31/2019. Plan as per #1 06/24/2019-blood cultures came back positive for Pseudomonas aeruginosa on 9 . Latest blood cultures are negative. As per ID recommendations PICC line was removed on 912. As listed above latest cultures are negative. Plan is to continue the present management. (3) IV drug abuse Is this a current diagnosis for this admission?: Yes Plan: Persistent IV drug abuse. Unfortunately patient seems to be abusing drugs while in the hospital. At times patient seems to be too sleepy. UDS on 06/08/2019 for back positive for opiates. Which was confirmed as morphine. Only on Subutex and tramadol in the hospital. Patient was advised on abstinence from recreational drug abuse. Currently on on Subutex since 05/27/2019 and tramadol. Was encouraged to rehab admission one day before discharge. 06/24/2019-patient has history of IV drug abuse. Counseling was provided today. (4) Abdominal pain Qualifiers: Abdominal location: generalized Qualified Code(s): R10.84 - Generalized abdominal pain Is this a current diagnosis for this admission?: Yes Plan: Resolved. CT abdomen pelvis 06/06/2019 found no acute findings except for severe constipation. History of cholecystectomy. History of hepatitis C. History of hepatic steatosis. Lipase WNL. Continue beta-blockers and supportive measures. Continue bowel regimen. Encourage ambulation and high-fiber diet. 06/24/2019-patient came with complaints of abdominal pain. Which was resolved. Lipase levels are within normal limits. (5) Anemia Qualifiers: Anemia type: iron deficiency Iron deficiency anemia type: unspecified iron deficiency Qualified Code(s): D50.9 - Iron deficiency anemia, unspecified Is this a current diagnosis for this admission?: Yes Plan: Microcytic. Likely combination of anemia of chronic disease and iron deficiency anemia. Denies any easy bleeding, nosebleeds, hematemesis, hemoptysis, hematochezia, vaginal bleeding or melena. 05/30/2019. Iron panel. Serum iron 18.8, TIBC 270, saturation 7%, ferritin 213, folate 5.53, B12 folate 306, 06/08/2019. Status post 2 PRBC transfusion. Daily H&H, monitor for bleeding, supportive transfusions, ferrous sulfate. 06/24/2019-patient received 2 units of PRBC. During the hospital stay. Latest hemoglobin is 11.4. Stable. - Time Time Spent with patient: 15-24 minutes Medications reviewed and adjusted accordingly: Yes Anticipated discharge: Home
[2019-06-24] MEDS: ATORVASTATIN CALCIUM 40 MG TABLET PO SCH (22:37)
[2019-06-24 23:35] LABS: URINE AMPHETAMINES SCREEN NEGATIVE; URINE BARBITURATES SCREEN NEGATIVE; URINE BENZODIAZEPINES SCREEN NEGATIVE; URINE COCAINE SCREEN NEGATIVE; URINE MARIJUANA (THC) SCREEN NEGATIVE; URINE METHADONE SCREEN NEGATIVE; URINE PHENCYCLIDINE SCREEN NEGATIVE
[2019-06-25] MEDS: PROMETHAZINE HCL 25 MG TABLET PO PRN (00:09)
[2019-06-25] MEDS: OXYCODONE-ACETAMINOPHEN 5-325 MG TABLET PO PRN ×4 (00:09→21:32)
[2019-06-25] MEDS: CEFEPIME 2 GM/D5W RTU 2 GM/50 ML RTUPB IV SCH ×3 (01:10→17:12)
[2019-06-25] MEDS: PANTOPRAZOLE SODIUM 40 MG TABLET.DR PO SCH (05:08)
[2019-06-25] MEDS ORDERED: IBUPROFEN 800 MG TABLET ONE (06:09)
--- NOTE | 2019-06-25 06:28 | Progress Note ---
Provider Note Provider Note: Critical care: 06/25/2019 Start time: 05:58 Critical care problem: Tachycardia/hypertension/hypoxia Patient complained of discomfort and not feeling well prompting her to be treated with a dose of Percocet 5/325 mg and a short while later when checking back on the patient her nurse noted that patient was cyanotic, complained of feeling very poorly and having chills with rigors. She was noted to have a heart rate of 140's-150's, a blood pressure reading of 180's/130's and an O2 sat in the 70's. She was immediately treated with oxygen and a rapid response was called. At the time of my arrival the patient had a improved to some degree though she continued to have chills with rigors and was noted to continue to be tachycardic though her blood pressure had returned to normal and her O2 sat had improved substantially. Her evaluation showed persistent mild acrocyanosis and mild to moderate anxiety. A CBC, blood cultures x2, a metabolic profile and serial lactic acids were ordered. Patient was treated with ibuprofen 800 mg p.o. x1 and was observed showing continued gradual improvement in her status though her chills and rigors had not resolved by the time my period of observation had ended. End time: 06:27 Total critical care time: 29 minutes
[2019-06-25] MEDS ORDERED: IBUPROFEN 800 MG TABLET PO ONE (06:30)
[2019-06-25 06:45] LABS: HEMATOCRIT 34.6 % (36.0-47.0); HEMOGLOBIN 11.4 g/dL (12.0-15.5); MEAN CORPUSCULAR HEMOGLOBIN 27.2 pg (27.0-33.4); MEAN CORPUSCULAR HGB CONC 32.8 g/dL (32.0-36.0); MEAN CORPUSCULAR VOLUME 83 fl (80-97); PLATELET COUNT 243 10^3/uL (150-450); RED BLOOD COUNT 4.18 10^6/uL (3.72-5.28); RED CELL DISTRIBUTION WIDTH 17.8 % (11.5-14.0)
[2019-06-25 07:01] LABS: ALBUMIN 3.9 g/dL (3.5-5.0); ALKALINE PHOSPHATASE 248 U/L (38-126); ANION GAP 16 (5-19); ASPARTATE AMINO TRANSFERASE 529 U/L (14-36); BILIRUBIN,DIRECT 0.4 mg/dL (0.0-0.4); BILIRUBIN,TOTAL 0.8 mg/dL (0.2-1.3); BLOOD UREA NITROGEN 33 mg/dL (7-20); CALCIUM 9.5 mg/dL (8.4-10.2); CARBON DIOXIDE 17 mmol/L (22-30); CHLORIDE 104 mmol/L (98-107); GLUCOSE 92 mg/dL (75-110); POTASSIUM 4.7 mmol/L (3.6-5.0); TOTAL PROTEIN 7.7 g/dL (6.3-8.2)
[2019-06-25] MEDS ORDERED: INFLUENZA QUAD (6MOS+) 2019-20 VAC 0.5 ML SYR IM ONE (08:00)
[2019-06-25 08:06] LABS: ABSOLUTE EOSINOPHILS # (AUTO) 0.1 10^3/uL (0.0-0.6); ABSOLUTE LYMPHOCYTES (AUTO) 2.6 10^3/uL (0.5-4.7); ABSOLUTE MONOCYTES (AUTO) 0.5 10^3/uL (0.1-1.4); ABSOLUTE NEUT (AUTO) 10.6 10^3/uL (1.7-8.2); BASOPHILS % (AUTO) 0.2 % (0-2); EOSINOPHILS % (AUTO) 0.5 % (0-6); HEMATOCRIT 35.5 % (36.0-47.0); HEMOGLOBIN 11.4 g/dL (12.0-15.5); LYMPHOCYTES % (AUTO) 19.1 % (13-45); MEAN CORPUSCULAR HEMOGLOBIN 26.9 pg (27.0-33.4); MEAN CORPUSCULAR VOLUME 84 fl (80-97); MONOCYTES % (AUTO) 3.5 % (3-13); PLATELET COUNT 243 10^3/uL (150-450); RED BLOOD COUNT 4.23 10^6/uL (3.72-5.28); RED CELL DISTRIBUTION WIDTH 17.7 % (11.5-14.0); SEGMENTED NEUTROPHILS % (AUTO) 76.7 % (42-78); TOTAL CELLS COUNTED % (AUTO) 100 %; WHITE BLOOD COUNT 13.8 10^3/uL (4.0-10.5)
[2019-06-25] MEDS: LACTOBACILLUS ACIDOPHILUS 250 MG TAB PO SCH ×2 (09:08→17:13)
[2019-06-25] MEDS: LISINOPRIL 5 MG TABLET PO SCH (09:10)
[2019-06-25] MEDS: CIPROFLOXACIN HCL 750 MG TABLET PO SCH ×2 (09:11→22:27)
[2019-06-25] MEDS: HEPARIN SOD (PORCINE) 5,000 UNIT/ML 1 ML VIAL SUBCUT SCH ×2 (09:11→21:32)
[2019-06-25] MEDS: FERROUS SULFATE 325 MG TABLET PO SCH (09:11)
[2019-06-25] MEDS: METOPROLOL TARTRATE 25 MG TABLET PO SCH ×2 (09:12→21:33)
[2019-06-25] MEDS: NORMAL SALINE 10 ML SDV (SCHEDULED) IV SCH ×2 (09:13→21:34)
[2019-06-25] MEDS: MIDODRINE HCL 5 MG TABLET PO SCH (09:14)
[2019-06-25] MEDS: BUPRENORPHINE HCL 2 MG SUBLINGUAL TABLET SL SCH ×2 (09:14→21:32)
[2019-06-25] MEDS: TIZANIDINE HCL 4 MG TABLET PO SCH ×3 (09:14→17:12)
[2019-06-25] MEDS: GABAPENTIN 300 MG CAPSULE PO SCH ×2 (09:14→17:12)
[2019-06-25] MEDS: NICOTINE 14 MG/24 HR PATCH.TD24 TD SCH (09:14)
--- NOTE | 2019-06-25 11:10 | PDOC PROGRESS REPORT ---
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 She presents with dull retrosternal chest pain which has been present since valve replacement has developed fever and some shortness of breath prompting evaluation emergency room where she is found to have sepsis with hypotension, tachycardia, leukocytosis of 19,000, hypo-natremia hypomagnesemia hypo-kalemia and thrombocytopenia. She started on IV vancomycin and Dr. Bowen hospitalist at [facility] is consulted. 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 Subsequent cultures did not grow. [facility] is currently on regional diversion and are subsequently unable to accept her for transfer. She is referred to the hospitalist for admission. 06/04/2019. No acute events overnight. 06/05/2017. No acute events overnight. Denies any fever, chills, nausea, v omiting, diarrhea, constipation or any urinary symptoms. 06/06/2019. No acute events overnight. Continues to complain of chronic right upper quadrant abdominal pain. Denies any fever, chills, nausea, vomiting, diarrhea, constipation or any urinary symptoms. Patient is p.o. tolerant, ambulatory, having normal bowel and bladder movements. 06/07/2019. No acute events overnight. Significant improvement of abdominal pain after having a large bowel movement this morning. Patient is ambulatory, in no apparent distress, p.o. tolerant. Patient has been noted to have low blood pressure however she is asymptomatic. 06/08/2019. No acute events overnight, patient is comfortably sitting in bed, in no apparent distress, abdominal pain has improved significantly, ambulatory, p.o. tolerant, having normal bowel bladder movement, denies any fever, chills, nausea, vomiting, diarrhea, constipation or any urinary symptoms. Patient hemoglobin is 7.7 today denies any hematemesis, hemoptysis, melena, vaginal bleeding or any hematochezia. Stool guaiac has been negative. We will give 2 PRBC today. 06/09/2019. No acute events overnight. Comfortably sitting in bed enjoying her breakfast. In no apparent distress. Abdominal pain has resolved, ambulatory, having normal bladder and bowel movement. Denies any fever, chills, nausea, vomiting, diarrhea, constipation or any urinary symptoms. 06/14/2019. No acute events overnight. Comfortably sitting in bed eating ice chips, no apparent distress, alert oriented x3, denies any abdominal pain, ambulatory, p.o. tolerant, having normal bowel and bladder movements, denies any fever, chills, nausea, vomiting, diarrhea, or any urinary symptoms. Discussed with patient about the need for PICC line to come out as it was placed on 05/22/2019 and has had several positive blood cultures since then. As per ID recommendation will remove PICC line. 06/15/2019. No acute events overnight. Comfortably sitting in bed enjoying her breakfast. Alert oriented x3, denies any fever, chills, nausea, vomiting, diarrhea, constipation or any urinary symptoms. PICC line removed on 06/14/2019. PICC line tip has been sent to culture. 06/16/2019. No acute events overnight. Comfortably sitting in bed enjoying her breakfast. Alert oriented x3, denies any fever, chills, nausea, vomiting, diarrhea, constipation or any urinary symptoms. 06/17/2018. No acute events overnight. Resting in bed. Complaining bed. Complaining of chronic back pain, alert oriented x3, denies any fever, chills, nausea, vomiting, diarrhea, constipation or any urinary symptoms. 06/18/2019. No acute events overnight. Comfortably sitting in bed, enjoying her breakfast, back pain has improved since being started on Percocet, denies any fever, chills, nausea, vomiting, diarrhea, constipation or any urinary symptoms. P.o. tolerant, ambulatory, having normal bowel bladder movement. 06/19/2019. No acute events overnight. Denies any fever, chills, nausea, vomiting, diarrhea, constipation or any urinary symptoms. P.o. tolerant, ambulatory, having normal bowel bladder movement. 06/20/2019. Complaining of having nightmares overnight, could not get a good night sleep, back pain is improving with tizanidine and Percocet, denies any fever, chills, nausea, shortness of breath, diarrhea or any constipation. P.o. tolerant, ambulatory having normal bladder and bowel movements. 06/21/2019. No acute events overnight. Denies any fever, chills, nausea, shortness of breath, diarrhea or any constipation. P.o. tolerant, ambulatory having normal bladder and bowel movements. 06/22/2019. No acute events overnight. Denies any fever, chills, nausea, shortness of breath, diarrhea or any constipation. P.o. tolerant, ambulatory having normal bladder and bowel movements. 06/23/2019. No acute events overnight, patient is sitting in bed, pleasant, enjoying her breakfast, lower back pain is improving, denies any ,nausea, vomiting, diarrhea, constipation or any urinary symptoms. Has been refusing her docusate, Cymbalta, pantoprazole and was seems to be discontinued as Cymbalta makes her very anxious. 06/24/2019-no acute events in the last 24 hours. Afebrile. Patient is com fortable in the bed talking to the family members on the phone. 06/25/2019-response was called last night patient found to be shivering associated with chills. Blood pressure was extremely elevated. Patient was given Motrin and repeat blood cultures was done. Patient stable this morning. To closely monitor her medical condition plan is to move her from medical floor to IMCU today. Patient denies any complaints. Alert and awake communicating well. Reason For Visit: IV DRUG ABUSE,SEPSIS,ENDOCARDITIS Physical Exam Vital Signs: Temp Pulse Resp BP Pulse Ox 98.5 F 85 17 109/61 100 06/25/19 09:01 06/25/19 09:01 06/25/19 09:01 06/25/19 09:01 06/25/19 09:01 Intake & Output 06/24/19 06/25/19 06/26/19 06:59 06:59 06:59 Intake Total 4 1552 50 Balance 4 1552 50 Weight 86.5 kg 86.9 kg General appearance: PRESENT: no acute distress Head exam: PRESENT: atraumatic Eye exam: PRESENT: PERRLA Mouth exam: PRESENT: moist, tongue midline Teeth exam: PRESENT: poor dentation Neck exam: ABSENT: carotid bruit, JVD, lymphadenopathy, thyromegaly Respiratory exam: PRESENT: decreased breath sounds Cardiovascular exam: PRESENT: systolic murmur GI/Abdominal exam: PRESENT: normal bowel sounds, soft. ABSENT: distended, guarding, mass, organolmegaly, rebound, tenderness Rectal exam: PRESENT: deferred Extremities exam: PRESENT: full ROM. ABSENT: calf tenderness, clubbing, pedal edema Neurological exam: PRESENT: alert, awake, oriented to person, oriented to place, oriented to time, oriented to situation, CN II-XII grossly intact. ABSENT: motor sensory deficit Psychiatric exam: PRESENT: appropriate affect, normal mood. ABSENT: homicidal ideation, suicidal ideation Results Laboratory Results: 06/25/19 06:18 06/25/19 06:18 06/25/19 06/25/19 06/25/19 06:18 06:18 06:18 WBC 13.0 H 13.8 H RBC 4.18 4.23 Hgb 11.4 L 11.4 L Hct 34.6 L 35.5 L MCV 83 84 MCH 27.2 26.9 L MCHC 32.8 32.0 RDW 17.8 H 17.7 H Plt Count 243 243 Seg Neutrophils % 76.7 Sodium 136.9 L Potassium 4.7 Chloride 104 Carbon Dioxide 17 L Anion Gap 16 BUN 33 H Creatinine 0.95 Est GFR ( Amer) > 60 Glucose 92 Lactic Acid Calcium 9.5 Total Bilirubin 0.8 AST 529 H Alkaline Phosphatase 248 H Total Protein 7.7 Albumin 3.9 06/25/19 08:42 WBC RBC Hgb Hct MCV MCH MCHC RDW Plt Count Seg Neutrophils % Sodium Potassium Chloride Carbon Dioxide Anion Gap BUN Creatinine Est GFR ( Amer) Glucose Lactic Acid 1.1 Calcium Total Bilirubin AST Alkaline Phosphatase Total Protein Albumin 05/21/19 05/22/19 05/22/19 23:07 02:06 11:00 Creatine Kinase CK-MB (CK-2) Troponin I 0.098 0.098 0.070 NT-Pro-B Natriuret Pep 05/22/19 05/22/19 05/22/19 14:00 14:35 20:04 Creatine Kinase CK-MB (CK-2) Troponin I Cancelled 0.060 0.037 NT-Pro-B Natriuret Pep 05/28/19 05/28/19 06/02/19 00:15 00:15 00:20 Creatine Kinase < 20 L < 20 L CK-MB (CK-2) 0.49 Troponin I 0.077 NT-Pro-B Natriuret Pep 06/02/19 06/02/19 06/02/19 00:20 06:15 06:15 Creatine Kinase < 20 L CK-MB (CK-2) 1.53 1.39 Troponin I 0.194 0.171 NT-Pro-B Natriuret Pep 06/02/19 06/02/19 13:30 13:30 Creatine Kinase < 20 L CK-MB (CK-2) 1.68 Troponin I 0.175 NT-Pro-B Natriuret Pep 4000 H Impressions: Chest X-Ray 05/21/19 23:04 IMPRESSION: 1. No acute pulmonary findings. 2. Previous sternotomy Abdomen Ultrasound 05/28/19 00:00 IMPRESSION: Mild splenomegaly. No acute findings otherwise. Abdomen/Pelvis CT 06/06/19 00:00 IMPRESSION: 1. Gastric distention and debris. Ileus. Constipation. 2. Normal appendix. No acute abdominopelvic abnormality. Guidance Fluoroscopy 06/23/19 00:00 IMPRESSION: SUCCESSFUL PLACEMENT OF A 5 FR DUAL LUMEN 38 CM PICC IN THE LEFT BASILIC VEIN. Interventional Vascular Procedure 06/23/19 00:00 IMPRESSION: SUCCESSFUL PLACEMENT OF A 5 FR DUAL LUMEN 38 CM PICC IN THE LEFT BASILIC VEIN. PICC Line Insertion 06/23/19 00:00 IMPRESSION: SUCCESSFUL PLACEMENT OF A 5 FR DUAL LUMEN 38 CM PICC IN THE LEFT BASILIC VEIN. Assessment and Plan - Diagnosis (1) Endocarditis Qualifiers: Endocarditis type: infective Is this a current diagnosis for this admission?: Yes (2) Bacteremia due to Pseudomonas Is this a current diagnosis for this admission?: Yes (3) IV drug abuse Is this a current diagnosis for this admission?: Yes (4) Abdominal pain Qualifiers: Abdominal location: generalized Qualified Code(s): R10.84 - Generalized abdominal pain Is this a current diagnosis for this admission?: Yes (5) Anemia Qualifiers: Anemia type: iron deficiency Iron deficiency anemia type: unspecified iron deficiency Qualified Code(s): D50.9 - Iron deficiency anemia, unspecified Is this a current diagnosis for this admission?: Yes - Plan Summary Summary: (1) Endocarditis Qualifiers: Endocarditis type: infective Is this a current diagnosis for this admission?: Yes Plan: 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 Status post tricuspid valve replacement September 2018 at [facility]. 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 Presented to ED with dull retrosternal chest pain which has been present since valve replacement. Was a started started on IV vancomycin by Dr. Bowen hospitalist at [facility]. 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 [facility] on regional diversion at the admission time and was admitted here at [facility]. 05/21/2019. TTE LVEF 60%. No thrombus or vegetations noted. Severe tricuspid regurgitation. RSVP 48 to 53 mmHg.05/27/2019 Started on empiric broad-spectrum IV antibiotics. PICC line placed on 05/22/2018 on the left basilic vein. PICC line removed 06/14/2019 as per ID recommendation. Please refer to note. Tip was cultured which came back negative. Multiple positive blood cultures for pseudomonas aeruginosa. Last negative blood culture 05/31/2019. Last negative blood culture 05/31/2019. Day 23 of 56 days. Expected completion date 07/30/2019. Day 25 IV cefepime. Day 13 Ciprofloxacin 750 mg p.o. twice daily. Day 31 IV antibiotics. Received 10 days of IV levofloxacin. Switch to ciprofloxacin IV as per ID recommendation. I have been informed that [facility] will be able to do SANJU starting early June. Patient has stable and receiving IV antibiotics SANJU can wait until early June if not will call [facility] again for transfer for SANJU. 06/09/2019. Infectious disease consulted. Recommendations noted. Please refer to note. Unfortunately patient has a drug abuse and could not be sent home on IV antibiotics. 06/24/2019-patient has endocarditis not a candidate to go home with an IV antibiotic therapy. Patient may need a SANJU this week. pt is presently on IV cefepime. 06/25/2019-patient has history of endocarditis secondary to percent 10 to use of IV drug abuse. Admitted with fever and chills. Blood cultures came back positive for pseudomonas aeruginosa latest blood cultures are negative. Patient is presently on cefepime and p.o. ciprofloxacin. Plan is to arrange for SANJU after 01 July at this hospital. Last night patient has no fever but Reiger's and chills. To closely monitor her medical condition plan is to move her to [facility] today. 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 Status post tricuspid valve replacement September 2018 at [facility]. Presented to ED with dull retrosternal chest pain which has been present since valve replacement. Was a started started on IV vancomycin by Dr. Bowen hospitalist at [facility]. 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 [facility] on regional diversion at the admission time and was admitted here at [facility]. 05/21/2019. TTE LVEF 60%. No thrombus or vegetations noted. Severe tricuspid regurgitation. RSVP 48 to 53 mmHg.05/27/2019 Started on empiric broad-spectrum IV antibiotics. PICC line placed on 05/22/2018 on the left basilic vein. PICC line removed on 06/14/2019 as per ID recommendation. PICC line tip sent to culture. Multiple positive blood cultures for pseudomonas aeruginosa. Last negative blood culture 05/31/2019. Plan as per #1 06/24/2019-blood cultures came back positive for Pseudomonas aeruginosa on 05 29. Latest blood cultures are negative. As per ID recommendations PICC line was removed on . As listed above latest cultures are negative. Plan is to continue the present management. 06/25/2019-blood cultures from 05/29/2019 came back positive for Pseudomonas aeruginosa as per ID recommendations patient is on p.o. Cipro floxacillin and IV cephapirin. Waiting for a SANJU procedure after 01 July. Cultures are negative. Latest (3) IV drug abuse Is this a current diagnosis for this admission?: Yes Plan: Persistent IV drug abuse. Unfortunately patient seems to be abusing drugs while in the hospital. At times patient seems to be too sleepy. UDS on 06/08/2019 for back positive for opiates. Which was confirmed as morphine. Only on Subutex and tramadol in the hospital. Patient was advised on abstinence from recreational drug abuse. Currently on on Subutex since 05/27/2019 and tramadol. Was encouraged to rehab admission one day before discharge. 06/24/2019-patient has history of IV drug abuse. Counseling was provided today. (4) Abdominal pain Qualifiers: Abdominal location: generalized Qualified Code(s): R10.84 - Generalized abdominal pain Is this a current diagnosis for this admission?: Yes Plan: Resolved. CT abdomen pelvis 06/06/2019 found no acute findings except for severe constipation. History of cholecystectomy. History of hepatitis C. History of hepatic steatosis. Lipase WNL. Continue beta-blockers and supportive measures. Continue bowel regimen. Encourage ambulation and high-fiber diet. 06/24/2019-patient came with complaints of abdominal pain. Which was resolved. Lipase levels are within normal limits. (5) Anemia Qualifiers: Anemia type: iron deficiency Iron deficiency anemia type: unspecified iron deficiency Qualified Code(s): D50.9 - Iron deficiency anemia, unspecified Is this a current diagnosis for this admission?: Yes Plan: Microcytic. Likely combination of anemia of chronic disease and iron deficiency anemia. Denies any easy bleeding, nosebleeds, hematemesis, hemoptysis, hematochezia, vaginal bleeding or melena. 05/30/2019. Iron panel. Serum iron 18.8, TIBC 270, saturation 7%, ferritin 213, folate 5.53, B12 folate 306, 06/08/2019. Status post 2 PRBC transfusion. Daily H&H, monitor for bleeding, supportive transfusions, ferrous sulfate. 06/24/2019-patient received 2 units of PRBC. During the hospital stay. Latest hemoglobin is 11.4. Stable. 06/25/2019-patient received 2 units of PRBC during the hospital stay latest hemo globin is 11.4 plan is to closely trend the hemoglobin on daily basis.
[2019-06-25] MEDS: ATORVASTATIN CALCIUM 40 MG TABLET PO SCH (21:32)
[2019-06-26] MEDS: CEFEPIME 2 GM/D5W RTU 2 GM/50 ML RTUPB IV SCH ×3 (02:23→17:52)
[2019-06-26] MEDS: PROMETHAZINE HCL 25 MG TABLET PO PRN (03:13)
[2019-06-26] MEDS: OXYCODONE-ACETAMINOPHEN 5-325 MG TABLET PO PRN ×3 (03:35→17:52)
[2019-06-26] MEDS: PANTOPRAZOLE SODIUM 40 MG TABLET.DR PO SCH (05:34)
[2019-06-26] MEDS: BUPRENORPHINE HCL 2 MG SUBLINGUAL TABLET SL SCH ×2 (09:16→21:33)
[2019-06-26] MEDS: TIZANIDINE HCL 4 MG TABLET PO SCH ×3 (09:17→17:52)
[2019-06-26] MEDS: METOPROLOL TARTRATE 25 MG TABLET PO SCH ×2 (09:17→21:33)
[2019-06-26] MEDS: FERROUS SULFATE 325 MG TABLET PO SCH (09:17)
[2019-06-26] MEDS: GABAPENTIN 300 MG CAPSULE PO SCH ×2 (09:17→17:52)
[2019-06-26] MEDS: LISINOPRIL 5 MG TABLET PO SCH (09:18)
[2019-06-26] MEDS: LACTOBACILLUS ACIDOPHILUS 250 MG TAB PO SCH ×2 (09:18→17:53)
[2019-06-26] MEDS: NICOTINE 14 MG/24 HR PATCH.TD24 TD SCH (09:19)
[2019-06-26] MEDS: HEPARIN SOD (PORCINE) 5,000 UNIT/ML 1 ML VIAL SUBCUT SCH ×2 (09:20→21:33)
[2019-06-26] MEDS: CIPROFLOXACIN HCL 750 MG TABLET PO SCH ×2 (09:21→21:35)
[2019-06-26] MEDS: NORMAL SALINE 10 ML SDV (SCHEDULED) IV SCH ×2 (09:44→21:34)
[2019-06-26] MEDS: ATORVASTATIN CALCIUM 40 MG TABLET PO SCH (21:33)
--- NOTE | 2019-06-26 22:42 | PDOC PROGRESS REPORT ---
Subjective Progress Note for:: 06/26/19 Subjective:: The patient is feeling better today. She still has some tingling/burning in her toes. Her breathing is comfortable. She has noticed slightly increased expressive aphasia as well. Reason For Visit: IV DRUG ABUSE,SEPSIS,ENDOCARDITIS Physical Exam Vital Signs: Temp Pulse Resp BP Pulse Ox 97.6 F 60 17 108/68 100 06/26/19 19:35 06/26/19 19:35 06/26/19 19:35 06/26/19 19:35 06/26/19 19:35 Intake & Output 06/25/19 06/26/19 06/27/19 06:59 06:59 06:59 Intake Total 1552 750 900 Balance 1552 750 900 Weight 86.9 kg 87 kg General appearance: PRESENT: no acute distress, cooperative, well-developed Head exam: PRESENT: atraumatic, normocephalic Eye exam: PRESENT: conjunctiva pink, EOMI. ABSENT: scleral icterus Ear exam: PRESENT: normal external ear exam. ABSENT: bleeding, drainage Mouth exam: PRESENT: moist, tongue midline Respiratory exam: PRESENT: clear to auscultation sandrita, symmetrical, unlabored. ABSENT: rales, rhonchi, tachypnea, wheezes Cardiovascular exam: PRESENT: RRR, +S1, +S2, systolic murmur - 3/6 Pulses: PRESENT: normal radial pulses GI/Abdominal exam: PRESENT: normal bowel sounds, soft, tenderness - Vague tenderness left lower quadrant. ABSENT: distended, guarding Extremities exam: PRESENT: full ROM, pedal edema - Trace. ABSENT: joint swelling Musculoskeletal exam: PRESENT: ambulatory, normal inspection. ABSENT: deformity Neurological exam: PRESENT: alert, awake, oriented to person, oriented to place, oriented to time, oriented to situation, aphasic - Very mild expressive aphasia with subtle dysarthria Psychiatric exam: PRESENT: appropriate affect. ABSENT: agitated, anxious Focused psych exam: ABSENT: delusional, restlessness Skin exam: PRESENT: dry, normal color, warm. ABSENT: rash Results Laboratory Results: 06/25/19 06:18 06/25/19 06:18 05/21/19 05/22/19 05/22/19 23:07 02:06 11:00 Creatine Kinase CK-MB (CK-2) Troponin I 0.098 0.098 0.070 NT-Pro-B Natriuret Pep 05/22/19 05/22/19 05/22/19 14:00 14:35 20:04 Creatine Kinase CK-MB (CK-2) Troponin I Cancelled 0.060 0.037 NT-Pro-B Natriuret Pep 05/28/19 05/28/19 06/02/19 00:15 00:15 00:20 Creatine Kinase < 20 L < 20 L CK-MB (CK-2) 0.49 Troponin I 0.077 NT-Pro-B Natriuret Pep 06/02/19 06/02/19 06/02/19 00:20 06:15 06:15 Creatine Kinase < 20 L CK-MB (CK-2) 1.53 1.39 Troponin I 0.194 0.171 NT-Pro-B Natriuret Pep 06/02/19 06/02/19 13:30 13:30 Creatine Kinase < 20 L CK-MB (CK-2) 1.68 Troponin I 0.175 NT-Pro-B Natriuret Pep 4000 H Impressions: Chest X-Ray 05/21/19 23:04 IMPRESSION: 1. No acute pulmonary findings. 2. Previous sternotomy Abdomen Ultrasound 05/28/19 00:00 IMPRESSION: Mild splenomegaly. No acute findings otherwise. Abdomen/Pelvis CT 06/06/19 00:00 IMPRESSION: 1. Gastric distention and debris. Ileus. Constipation. 2. Normal appendix. No acute abdominopelvic abnormality. Guidance Fluoroscopy 06/23/19 00:00 IMPRESSION: SUCCESSFUL PLACEMENT OF A 5 FR DUAL LUMEN 38 CM PICC IN THE LEFT BASILIC VEIN. Interventional Vascular Procedure 06/23/19 00:00 IMPRESSION: SUCCESSFUL PLACEMENT OF A 5 FR DUAL LUMEN 38 CM PICC IN THE LEFT BASILIC VEIN. PICC Line Insertion 06/23/19 00:00 IMPRESSION: SUCCESSFUL PLACEMENT OF A 5 FR DUAL LUMEN 38 CM PICC IN THE LEFT BASILIC VEIN. Assessment and Plan - Diagnosis (1) Bacteremia due to Pseudomonas Is this a current diagnosis for this admission?: Yes (2) UTI (urinary tract infection) Qualifiers: Urinary tract infection type: acute cystitis Hematuria presence: without hematuria Qualified Code(s): N30.00 - Acute cystitis without hematuria Is this a current diagnosis for this admission?: Yes (3) Hypokalemia Is this a current diagnosis for this admission?: Yes (4) IV drug abuse Is this a current diagnosis for this admission?: Yes (5) Endocarditis Qualifiers: Endocarditis type: infective Is this a current diagnosis for this admission?: Yes (6) Abdominal pain Qualifiers: Abdominal location: generalized Qualified Code(s): R10.84 - Generalized abdominal pain Is this a current diagnosis for this admission?: Yes (7) Hepatitis C Qualifiers: Viral hepatitis chronicity: chronic Hepatic coma status: without hepatic coma Qualified Code(s): B18.2 - Chronic viral hepatitis C Is this a current diagnosis for this admission?: Yes (8) Steatohepatitis Is this a current diagnosis for this admission?: Yes (9) Anemia Qualifiers: Anemia type: iron deficiency Iron deficiency anemia type: unspecified iron deficiency Qualified Code(s): D50.9 - Iron deficiency anemia, unspecified Is this a current diagnosis for this admission?: Yes (10) Depression Qualifiers: Depression Type: other depression Qualified Code(s): F32.89 - Other specified depressive episodes Is this a current diagnosis for this admission?: Yes (11) Daya vaginitis Is this a current diagnosis for this admission?: Yes - Plan Summary Summary: (1) Endocarditis Qualifiers: Endocarditis type: infective Is this a current diagnosis for this admission?: Yes Plan: 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 Status post tricuspid valve replacement September 2018 at [facility]. 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 Presented to ED with dull retrosternal chest pain which has been present since valve replacement. Was a started started on IV vancomycin by Dr. Bowen hospitalist at [facility]. 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 [facility] on regional diversion at the admission time and was admitted here at [facility]. 05/21/2019. TTE LVEF 60%. No thrombus or vegetations noted. Severe tricuspid regurgitation. RSVP 48 to 53 mmHg.05/27/2019 Started on empiric broad-spectrum IV antibiotics. PICC line placed on 05/22/2018 on the left basilic vein. PICC line removed 06/14/2019 as per ID recommendation. Please refer to note. Tip was cultured which came back negative. Multiple positive blood cultures for pseudomonas aeruginosa. Last negative blood culture 05/31/2019 Last negative blood culture 05/31/2019. Day 23 of 56 days. Expected completion date 07/30/2019. Day 25 IV cefepime. Day 13 Ciprofloxacin 750 mg p.o. twice daily. Day 31 IV antibiotics. Received 10 days of IV levofloxacin. Switch to ciprofloxacin IV as per ID recommendation. I have been informed that [facility] will be able to do SANJU starting early June. Patient has stable and receiving IV antibiotics SANJU can wait until early June if not will call [facility] again for transfer for SANJU. 06/09/2019. Infectious disease consulted. Recommendations noted. Please refer to note. Unfortunately patient has a drug abuse and could not be sent home on IV antibiotics. 06/24/2019-patient has endocarditis not a candidate to go home with an IV antibiotic therapy. Patient may need a SANJU this week. pt is presently on IV cefepime. 06/25/2019-patient has history of endocarditis secondary to percent 10 to use of IV drug abuse. Admitted with fever and chills. Blood cultures came back positive for pseudomonas aeruginosa latest blood cultures are negative. Patient is presently on cefepime and p.o. ciprofloxacin. Plan is to arrange for SANJU after 01 July at this hospital. Last night patient has no fever but Reiger's and chills. To closely monitor her medical condition plan is to move her to [facility] today. 06/26/2019-unfortunately the SANJU service is not available yet. The patient will continue her antibiotic therapy. She will need 6 weeks from the first set of blood cultures that were no growth. 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 Status post tricuspid valve replacement September 2018 at [facility]. Presented to ED with dull retrosternal chest pain which has been present since valve replacement. Was a started started on IV vancomycin by Dr. Bowen hospitalist at [facility]. 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 [facility] By [facility] on regional diversion at the admission time and was admitted here at [facility]. 05/21/2019. TTE LVEF 60%. No thrombus or vegetations noted. Severe tricuspid regurgitation. RSVP 48 to 53 mmHg.05/27/2019 Started on empiric broad-spectrum IV antibiotics. PICC line placed on 05/22/2018 on the left basilic vein. PICC line removed on 06/14/2019 as per ID recommendation. PICC line tip sent to culture. Multiple positive blood cultures for pseudomonas aeruginosa. Last negative blood culture 05/31/2019. Plan as per #1 06/24/2019-blood cultures came back positive for Pseudomonas aeruginosa on 05 29. Latest blood cultures are negative. As per ID recommendations PICC line was removed on . As listed above latest cultures are negative. Plan is to continue the present management. 06/25/2019-blood cultures from 05/29/2019 came back positive for Pseudomonas aeruginosa as per ID recommendations patient is on p.o. Cipro floxacillin and IV cephapirin. Waiting for a SANJU procedure after 01 July. Cultures are negative. Latest 06/26/2019-multiple repeated blood cultures are negative. Continue current treatment regimen. (3) IV drug abuse Is this a current diagnosis for this admission?: Yes Plan: Persistent IV drug abuse. Unfortunately patient seems to be abusing drugs while in the hospital. At times patient seems to be too sleepy. UDS on 06/08/2019 for back positive for opiates. Which was confirmed as morphine. Only on Subutex and tramadol in the hospital. Patient was advised on abstinence from recreational drug abuse. Currently on on Subutex since 05/27/2019 and tramadol. Was encouraged to rehab admission one day before discharge. 06/24/2019-patient has history of IV drug abuse. Counseling was provided today. 06/26/2019-continue Suboxone (4) Abdominal pain Qualifiers: Abdominal location: generalized Qualified Code(s): R10.84 - Generalized abdominal pain Is this a current diagnosis for this admission?: Yes Plan: Resolved. CT abdomen pelvis 06/06/2019 found no acute findings except for severe constipation. History of cholecystectomy. History of hepatitis C. History of hepatic steatosis. Lipase WNL. Continue beta-blockers and supportive measures. Continue bowel regimen. Encourage ambulation and high-fiber diet. 06/24/2019-patient came with complaints of abdominal pain. Which was resolved. Lipase levels are within normal limits. 06/26/2019-the patient does have history of hepatitis C. Since the rapid response 2 nights ago the patient exhibits increased LFTs. She does have a history of hepatitis C. I will recheck the liver enzymes and if they continue to increase I will obtain imaging of the abdomen. (5) Anemia Qualifiers: Anemia type: iron deficiency Iron deficiency anemia type: unspecified iron deficiency Qualified Code(s): D50.9 - Iron deficiency anemia, unspecified Is this a current diagnosis for this admission?: Yes Plan: Microcytic. Likely combination of anemia of chronic disease and iron deficiency anemia. Denies any easy bleeding, nosebleeds, hematemesis, hemoptysis, hematochezia, vaginal bleeding or melena. 05/30/2019. Iron panel. Serum iron 18.8, TIBC 270, saturation 7%, ferritin 213, folate 5.53, B12 folate 306, 06/08/2019. Status post 2 PRBC transfusion. Daily H&H, monitor for bleeding, supportive transfusions, ferrous sulfate. 06/24/2019-patient received 2 units of PRBC. During the hospital stay. Latest hemoglobin is 11.4. Stable. 06/25/2019-patient received 2 units of PRBC during the hospital stay latest hemoglobin is 11.4 plan is to closely trend the hemoglobin on daily basis. 06/26/2019-continue to monitor hemoglobin.
[2019-06-27] MEDS: OXYCODONE-ACETAMINOPHEN 5-325 MG TABLET PO PRN ×4 (01:11→22:44)
[2019-06-27] MEDS: PROMETHAZINE HCL 25 MG TABLET PO PRN ×2 (01:11→22:43)
[2019-06-27] MEDS: CEFEPIME 2 GM/D5W RTU 2 GM/50 ML RTUPB IV SCH ×3 (02:20→18:28)
[2019-06-27] MEDS: PANTOPRAZOLE SODIUM 40 MG TABLET.DR PO SCH (06:01)
[2019-06-27 06:46] LABS: ALBUMIN 3.1 g/dL (3.5-5.0); ALKALINE PHOSPHATASE 226 U/L (38-126); ANION GAP 10 (5-19); ASPARTATE AMINO TRANSFERASE 536 U/L (14-36); BILIRUBIN,DIRECT 0.4 mg/dL (0.0-0.4); BILIRUBIN,TOTAL 0.6 mg/dL (0.2-1.3); BLOOD UREA NITROGEN 26 mg/dL (7-20); CARBON DIOXIDE 20 mmol/L (22-30); CHLORIDE 106 mmol/L (98-107); GLUCOSE 102 mg/dL (75-110); POTASSIUM 4.6 mmol/L (3.6-5.0); TOTAL PROTEIN 6.4 g/dL (6.3-8.2)
[2019-06-27] MEDS: FERROUS SULFATE 325 MG TABLET PO SCH (08:52)
[2019-06-27] MEDS: TIZANIDINE HCL 4 MG TABLET PO SCH ×2 (09:01→14:54)
[2019-06-27] MEDS: METOPROLOL TARTRATE 25 MG TABLET PO SCH ×2 (09:02→21:41)
[2019-06-27] MEDS: LISINOPRIL 5 MG TABLET PO SCH (09:02)
[2019-06-27] MEDS: BUPRENORPHINE HCL 2 MG SUBLINGUAL TABLET SL SCH (09:03)
[2019-06-27] MEDS: CIPROFLOXACIN HCL 750 MG TABLET PO SCH ×2 (09:03→21:43)
[2019-06-27] MEDS: HEPARIN SOD (PORCINE) 5,000 UNIT/ML 1 ML VIAL SUBCUT SCH ×2 (09:04→21:43)
[2019-06-27] MEDS: NORMAL SALINE 10 ML SDV (SCHEDULED) IV SCH ×2 (09:11→21:42)
[2019-06-27] MEDS: LACTOBACILLUS ACIDOPHILUS 250 MG TAB PO SCH ×2 (09:14→18:19)
--- NOTE | 2019-06-27 15:53 | PDOC PROGRESS REPORT ---
Subjective Progress Note for:: 06/27/19 Subjective:: The patient complains of foot pain under the arch of her left foot. She also states that her right thigh is tender. Reason For Visit: IV DRUG ABUSE,SEPSIS,ENDOCARDITIS Physical Exam Vital Signs: Temp Pulse Resp BP Pulse Ox 98.5 F 68 16 111/53 L 99 06/27/19 11:46 06/27/19 11:46 06/27/19 11:46 06/27/19 11:46 06/27/19 11:46 Intake & Output 06/26/19 06/27/19 06/28/19 06:59 06:59 06:59 Intake Total 750 900 100 Balance 750 900 100 Weight 87 kg 87 kg General appearance: PRESENT: mild distress, well-developed, well-nourished Head exam: PRESENT: atraumatic, normocephalic Respiratory exam: PRESENT: clear to auscultation sandrita. ABSENT: rales, rhonchi, wheezes Cardiovascular exam: PRESENT: RRR, +S1, +S2, systolic murmur - 4/6 GI/Abdominal exam: PRESENT: normal bowel sounds, soft. ABSENT: distended, tenderness Extremities exam: PRESENT: pedal edema - Trace, other - Tenderness under the arch of the left foot. There is a soft pronounced area. It is similar to a lipoma. There is no discoloration. Strength is normal. Neurological exam: PRESENT: alert, awake, oriented to person, oriented to place, oriented to time, oriented to situation Psychiatric exam: PRESENT: appropriate affect. ABSENT: agitated, anxious Results Laboratory Results: 06/25/19 06:18 06/27/19 06:00 06/27/19 06:00 Sodium 135.5 L Potassium 4.6 Chloride 106 Carbon Dioxide 20 L Anion Gap 10 BUN 26 H Creatinine 0.85 Est GFR ( Amer) > 60 Glucose 102 Calcium 9.0 Total Bilirubin 0.6 AST 536 H Alkaline Phosphatase 226 H Total Protein 6.4 Albumin 3.1 L 05/21/19 05/22/19 05/22/19 23:07 02:06 11:00 Creatine Kinase CK-MB (CK-2) Troponin I 0.098 0.098 0.070 NT-Pro-B Natriuret Pep 05/22/19 05/22/19 05/22/19 14:00 14:35 20:04 Creatine Kinase CK-MB (CK-2) Troponin I Cancelled 0.060 0.037 NT-Pro-B Natriuret Pep 05/28/19 05/28/19 06/02/19 00:15 00:15 00:20 Creatine Kinase < 20 L < 20 L CK-MB (CK-2) 0.49 Troponin I 0.077 NT-Pro-B Natriuret Pep 06/02/19 06/02/19 06/02/19 00:20 06:15 06:15 Creatine Kinase < 20 L CK-MB (CK-2) 1.53 1.39 Troponin I 0.194 0.171 NT-Pro-B Natriuret Pep 06/02/19 06/02/19 13:30 13:30 Creatine Kinase < 20 L CK-MB (CK-2) 1.68 Troponin I 0.175 NT-Pro-B Natriuret Pep 4000 H Impressions: Chest X-Ray 05/21/19 23:04 IMPRESSION: 1. No acute pulmonary findings. 2. Previous sternotomy Abdomen Ultrasound 05/28/19 00:00 IMPRESSION: Mild splenomegaly. No acute findings otherwise. Abdomen/Pelvis CT 06/06/19 00:00 IMPRESSION: 1. Gastric distention and debris. Ileus. Constipation. 2. Normal appendix. No acute abdominopelvic abnormality. Guidance Fluoroscopy 06/23/19 00:00 IMPRESSION: SUCCESSFUL PLACEMENT OF A 5 FR DUAL LUMEN 38 CM PICC IN THE LEFT B ASILIC VEIN. Interventional Vascular Procedure 06/23/19 00:00 IMPRESSION: SUCCESSFUL PLACEMENT OF A 5 FR DUAL LUMEN 38 CM PICC IN THE LEFT BASILIC VEIN. PICC Line Insertion 06/23/19 00:00 IMPRESSION: SUCCESSFUL PLACEMENT OF A 5 FR DUAL LUMEN 38 CM PICC IN THE LEFT BASILIC VEIN. Assessment and Plan - Diagnosis (1) Bacteremia due to Pseudomonas Is this a current diagnosis for this admission?: Yes (2) UTI (urinary tract infection) Qualifiers: Urinary tract infection type: acute cystitis Hematuria presence: without hematuria Qualified Code(s): N30.00 - Acute cystitis without hematuria Is this a current diagnosis for this admission?: Yes (3) Hypokalemia Is this a current diagnosis for this admission?: Yes (4) IV drug abuse Is this a current diagnosis for this admission?: Yes (5) Endocarditis Qualifiers: Endocarditis type: infective Is this a current diagnosis for this admission?: Yes (6) Abdominal pain Qualifiers: Abdominal location: generalized Qualified Code(s): R10.84 - Generalized ab dominal pain Is this a current diagnosis for this admission?: Yes (7) Hepatitis C Qualifiers: Viral hepatitis chronicity: chronic Hepatic coma status: without hepatic coma Qualified Code(s): B18.2 - Chronic viral hepatitis C Is this a current diagnosis for this admission?: Yes (8) Steatohepatitis Is this a current diagnosis for this admission?: Yes (9) Anemia Qualifiers: Anemia type: iron deficiency Iron deficiency anemia type: unspecified iron deficiency Qualified Code(s): D50.9 - Iron deficiency anemia, unspecified Is this a current diagnosis for this admission?: Yes (10) Depression Qualifiers: Depression Type: other depression Qualified Code(s): F32.89 - Other specified depressive episodes Is this a current diagnosis for this admission?: Yes (11) Daya vaginitis Is this a current diagnosis for this admission?: Yes - Plan Summary Summary: (1) Endocarditis Qualifiers: Endocarditis type: infective Is this a current diagnosis for this admission?: Yes Plan: 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 Status post tricuspid valve replacement September 2018 at [facility]. 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 Presented to ED with dull retrosternal chest pain which has been present since valve replacement. Was a started started on IV vancomycin by Dr. Bowen hospitalist at [facility]. 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 [facility] on regional diversion at the admission time and was admitted here at [facility]. 05/21/2019. TTE LVEF 60%. No thrombus or vegetations noted. Severe tricuspid regurgitation. RSVP 48 to 53 mmHg.05/27/2019 Started on empiric broad-spectrum IV antibiotics. PICC line placed on 05/22/2018 on the left basilic vein. PICC line removed 06/14/2019 as per ID recommendation. Please refer to note. Tip was cultured which came back negative. Multiple positive blood cultures for pseudomonas aeruginosa. Last negative blood culture 05/31/2019 Last negative blood culture 05/31/2019. Day 23 of 56 days. Expected completion date 07/30/2019. Day 25 IV cefepime. Day 13 Ciprofloxacin 750 mg p.o. twice daily. Day 31 IV antibiotics. Received 10 days of IV levofloxacin. Switch to ciprofloxacin IV as per ID recommendation. I have been informed that [facility] will be able to do SANJU starting early June. Patient has stable and receiving IV antibiotics SANJU can wait until early June if not will call [facility] again for transfer for SANJU. 06/09/2019. Infectious disease consulted. Recommendations noted. Please refer to note. Unfortunately patient has a drug abuse and could not be sent home on IV antibiotics. 06/24/2019-patient has endocarditis not a candidate to go home with an IV antibiotic therapy. Patient may need a SANJU this week. pt is presently on IV cefepime. 06/25/2019-patient has history of endocarditis secondary to percent 10 to use of IV drug abuse. Admitted with fever and chills. Blood cultures came back positive for pseudomonas aeruginosa latest blood cultures are negative. Patient is presently on cefepime and p.o. ciprofloxacin. Plan is to arrange for SANJU after 01 July at this hospital. Last night patient has no fever but Reiger's and chills. To closely monitor her medical condition plan is to move her to [facility] today. 06/26/2019-unfortunately the SANJU service is not available yet. The patient will continue her antibiotic therapy. She will need 6 weeks from the first set of b lood cultures that were no growth. 06/27/2019-no changes to the treatment plan. 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 Status post tricuspid valve replacement September 2018 at [facility]. Presented to ED with dull retrosternal chest pain which has been present since valve replacement. Was a started started on IV vancomycin by Dr. Bowen hospitalist at [facility]. 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 [facility] on regional diversion at the admission time and was admitted here at [facility]. 05/21/2019. TTE LVEF 60%. No thrombus or vegetations noted. Severe tricuspid r egurgitation. RSVP 48 to 53 mmHg.05/27/2019 Started on empiric broad-spectrum IV antibiotics. PICC line placed on 05/22/2018 on the left basilic vein. PICC line removed on 06/14/2019 as per ID recommendation. PICC line tip sent to culture. Multiple positive blood cultures for pseudomonas aeruginosa. Last negative blood culture 05/31/2019. Plan as per #1 06/24/2019-blood cultures came back positive for Pseudomonas aeruginosa on 05 29. Latest blood cultures are negative. As per ID recommendations PICC line was removed on . As listed above latest cultures are negative. Plan is to thomas nue the present management. 06/25/2019-blood cultures from 05/29/2019 came back positive for Pseudomonas aeruginosa as per ID recommendations patient is on p.o. Cipro floxacillin and IV cephapirin. Waiting for a SANJU procedure after 01 July. Cultures are negative. Latest 06/26/2019-multiple repeated blood cultures are negative. Continue current treatment regimen. (3) IV drug abuse Is this a current diagnosis for this admission?: Yes Plan: Persistent IV drug abuse. Unfortunately patient seems to be abusing drugs while in the hospital. At times patient seems to be too sleepy. UDS on 06/08/2019 for back positive for opiates. Which was confirmed as morphine. Only on Subutex and tramadol in the hospital. Patient was advised on abstinence from recreational drug abuse. Currently on on Subutex since 05/27/2019 and tramadol. Was encouraged to rehab admission one day before discharge. 06/24/2019-patient has history of IV drug abuse. Counseling was provided today. 06/26/2019-continue Suboxone (4) Abdominal pain Qualifiers: Abdominal location: generalized Qualified Code(s): R10.84 - Generalized abdominal pain Is this a current diagnosis for this admission?: Yes Plan: Resolved. CT abdomen pelvis 06/06/2019 found no acute findings except for severe constipation. History of cholecystectomy. History of hepatitis C. History of hepatic steatosis. Lipase WNL. Continue beta-blockers and supportive measures. Continue bowel regimen. Encourage ambulation and high-fiber diet. 06/24/2019-patient came with complaints of abdominal pain. Which was resolved. Lipase levels are within normal limits. 06/26/2019-the patient does have history of hepatitis C. Since the rapid response 2 nights ago the patient exhibits increased LFTs. She does have a history of hepatitis C. I will recheck the liver enzymes and if they continue to increase I will obtain imaging of the abdomen. 06/27/2019-we discussed the elevated liver enzymes. She cannot remember when her last evaluation for hepatitis C was. I will check a hep C RNA level. We will continue to monitor the chemistries. (5) Anemia Qualifiers: Anemia type: iron deficiency Iron deficiency anemia type: unspecified iron deficiency Qualified Code(s): D50.9 - Iron deficiency anemia, unspecified Is this a current diagnosis for this admission?: Yes Plan: Microcytic. Likely combination of anemia of chronic disease and iron deficiency anemia. Denies any easy bleeding, nosebleeds, hematemesis, hemoptysis, hematochezia, vaginal bleeding or melena. 05/30/2019. Iron panel. Serum iron 18.8, TIBC 270, saturation 7%, ferritin 213, folate 5.53, B12 folate 306, 06/08/2019. Status post 2 PRBC transfusion. Daily H&H, monitor for bleeding, supportive transfusions, ferrous sulfate. 06/24/2019-patient received 2 units of PRBC. During the hospital stay. Latest hemoglobin is 11.4. Stable. 06/25/2019-patient received 2 units of PRBC during the hospital stay latest hemoglobin is 11.4 plan is to closely trend the hemoglobin on daily basis. 06/26/2019-continue to monitor hemoglobin. - Time Time Spent with patient: 15-24 minutes Medications reviewed and adjusted accordingly: Yes
[2019-06-27] MEDS: CYCLOBENZAPRINE HCL 10 MG TABLET PO SCH (18:28)
[2019-06-27] MEDS ORDERED: TIZANIDINE HCL 4 MG TABLET PO SCH (20:00)
[2019-06-27] MEDS: QUETIAPINE FUMARATE 25 MG TABLET PO SCH (21:42)
[2019-06-27] MEDS ORDERED: ATORVASTATIN CALCIUM 40 MG TABLET PO ONE (22:45)
[2019-06-27] MEDS ORDERED: BUPRENORPHINE HCL 2 MG SUBLINGUAL TABLET SL ONE (22:45)
[2019-06-28] MEDS: CEFEPIME 2 GM/D5W RTU 2 GM/50 ML RTUPB IV SCH ×3 (02:40→18:59)
[2019-06-28] MEDS: PANTOPRAZOLE SODIUM 40 MG TABLET.DR PO SCH (05:46)
[2019-06-28 06:41] LABS: ALKALINE PHOSPHATASE 241 U/L (38-126); ANION GAP 8 (5-19); ASPARTATE AMINO TRANSFERASE 451 U/L (14-36); BILIRUBIN,DIRECT 0.3 mg/dL (0.0-0.4); BILIRUBIN,TOTAL 0.5 mg/dL (0.2-1.3); BLOOD UREA NITROGEN 22 mg/dL (7-20); CALCIUM 9.2 mg/dL (8.4-10.2); CARBON DIOXIDE 22 mmol/L (22-30); CHLORIDE 108 mmol/L (98-107); CREATINE KINASE 26 U/L (30-135); GLUCOSE 91 mg/dL (75-110); POTASSIUM 5.1 mmol/L (3.6-5.0); TOTAL PROTEIN 6.5 g/dL (6.3-8.2)
[2019-06-28] MEDS: OXYCODONE-ACETAMINOPHEN 5-325 MG TABLET PO PRN ×3 (06:43→21:26)
[2019-06-28] MEDS: LACTOBACILLUS ACIDOPHILUS 250 MG TAB PO SCH ×2 (09:01→18:56)
[2019-06-28] MEDS: NORMAL SALINE 10 ML SDV (SCHEDULED) IV SCH ×2 (09:09→21:28)
[2019-06-28] MEDS: METOPROLOL TARTRATE 25 MG TABLET PO SCH ×2 (09:10→21:26)
[2019-06-28] MEDS: CYCLOBENZAPRINE HCL 10 MG TABLET PO SCH (09:10)
[2019-06-28] MEDS: HEPARIN SOD (PORCINE) 5,000 UNIT/ML 1 ML VIAL SUBCUT SCH ×2 (09:10→21:27)
[2019-06-28] MEDS: FERROUS SULFATE 325 MG TABLET PO SCH (09:11)
[2019-06-28] MEDS: CIPROFLOXACIN HCL 750 MG TABLET PO SCH ×2 (09:11→21:26)
[2019-06-28] MEDS: LISINOPRIL 5 MG TABLET PO SCH (09:11)
[2019-06-28] MEDS ORDERED: BUPRENORPHINE HCL 2 MG SUBLINGUAL TABLET SL ONE (10:10)
--- NOTE | 2019-06-28 10:14 | PDOC PROGRESS REPORT ---
Subjective Progress Note for:: 06/28/19 Subjective:: Plantar fasciitis, liver enzymes, burning toe, Subutex, Seroquel, check QT Reason For Visit: IV DRUG ABUSE,SEPSIS,ENDOCARDITIS Physical Exam Vital Signs: Temp Pulse Resp BP Pulse Ox 98.2 F 78 17 127/64 H 99 06/28/19 08:05 06/28/19 08:05 06/28/19 08:05 06/28/19 08:05 06/28/19 08:05 Intake & Output 06/27/19 06/28/19 06/29/19 06:59 06:59 06:59 Intake Total 900 1880 50 Output Total 118 Balance 900 1762 50 Weight 87 kg 92.2 kg General appearance: PRESENT: no acute distress, cooperative, well-developed Head exam: PRESENT: atraumatic, normocephalic Respiratory exam: PRESENT: clear to auscultation sandrita, symmetrical. ABSENT: accessory muscle use, rales, rhonchi, tachypnea, wheezes Cardiovascular exam: PRESENT: RRR, +S1, +S2, systolic murmur - 4/6 GI/Abdominal exam: PRESENT: normal bowel sounds, soft. ABSENT: distended, tenderness Rectal exam: PRESENT: deferred Extremities exam: PRESENT: pedal edema - Trace, other - Tender under the left arch. Toes unremarkable.. ABSENT: calf tenderness Musculoskeletal exam: PRESENT: ambulatory, full ROM, normal inspection Neurological exam: PRESENT: alert, awake, oriented to person, oriented to place, oriented to time, oriented to situation, CN II-XII grossly intact Psychiatric exam: PRESENT: anxious - Regarding medicines dropping off the MAR. ABSENT: agitated Focused psych exam: ABSENT: delusional, restlessness Skin exam: PRESENT: other - No onychomycosis. ABSENT: erythema, rash Results Laboratory Results: 06/25/19 06:18 06/28/19 03:40 06/28/19 03:40 Sodium 138.4 Potassium 5.1 H Chloride 108 H Carbon Dioxide 22 Anion Gap 8 BUN 22 H Creatinine 0.81 Est GFR ( Amer) > 60 Glucose 91 Calcium 9.2 Total Bilirubin 0.5 AST 451 H Alkaline Phosphatase 241 H Total Protein 6.5 Albumin 3.0 L 05/21/19 05/22/19 05/22/19 23:07 02:06 11:00 Creatine Kinase CK-MB (CK-2) Troponin I 0.098 0.098 0.070 NT-Pro-B Natriuret Pep 05/22/19 05/22/19 05/22/19 14:00 14:35 20:04 Creatine Kinase CK-MB (CK-2) Troponin I Cancelled 0.060 0.037 NT-Pro-B Natriuret Pep 05/28/19 05/28/19 06/02/19 00:15 00:15 00:20 Creatine Kinase < 20 L < 20 L CK-MB (CK-2) 0.49 Troponin I 0.077 NT-Pro-B Natriuret Pep 06/02/19 06/02/19 06/02/19 00:20 06:15 06:15 Creatine Kinase < 20 L CK-MB (CK-2) 1.53 1.39 Troponin I 0.194 0.171 NT-Pro-B Natriuret Pep 06/02/19 06/02/19 06/28/19 13:30 13:30 03:40 Creatine Kinase < 20 L 26 L CK-MB (CK-2) 1.68 Troponin I 0.175 NT-Pro-B Natriuret Pep 4000 H Impressions: Chest X-Ray 05/21/19 23:04 IMPRESSION: 1. No acute pulmonary findings. 2. Previous sternotomy Abdomen Ultrasound 05/28/19 00:00 IMPRESSION: Mild splenomegaly. No acute findings otherwise. Abdomen/Pelvis CT 06/06/19 00:00 IMPRESSION: 1. Gastric distention and debris. Ileus. Constipation. 2. Normal appendix. No acute abdominopelvic abnormality. Guidance Fluoroscopy 06/23/19 00:00 IMPRESSION: SUCCESSFUL PLACEMENT OF A 5 FR DUAL LUMEN 38 CM PICC IN THE LEFT BASILIC VEIN. Interventional Vascular Procedure 06/23/19 00:00 IMPRESSION: SUCCESSFUL PLACEMENT OF A 5 FR DUAL LUMEN 38 CM PICC IN THE LEFT BASILIC VEIN. PICC Line Insertion 06/23/19 00:00 IMPRESSION: SUCCESSFUL PLACEMENT OF A 5 FR DUAL LUMEN 38 CM PICC IN THE LEFT BASILIC VEIN. Assessment and Plan - Diagnosis (1) Bacteremia due to Pseudomonas Is this a current diagnosis for this admission?: Yes (2) UTI (urinary tract infection) Qualifiers: Urinary tract infection type: acute cystitis Hematuria presence: without hematuria Qualified Code(s): N30.00 - Acute cystitis without hematuria Is this a current diagnosis for this admission?: Yes (3) Hypokalemia Is this a current diagnosis for this admission?: Yes (4) IV drug abuse Is this a current diagnosis for this admission?: Yes (5) Endocarditis Qualifiers: Endocarditis type: infective Is this a current diagnosis for this admission?: Yes (6) Abdominal pain Qualifiers: Abdominal location: generalized Qualified Code(s): R10.84 - Generalized abdominal pain Is this a current diagnosis for this admission?: Yes (7) Hepatitis C Qualifiers: Viral hepatitis chronicity: chronic Hepatic coma status: without hepatic coma Qualified Code(s): B18.2 - Chronic viral hepatitis C Is this a current diagnosis for this admission?: Yes (8) Steatohepatitis Is this a current diagnosis for this admission?: Yes (9) Anemia Qualifiers: Anemia type: iron deficiency Iron deficiency anemia type: unspecified iron deficiency Qualified Code(s): D50.9 - Iron deficiency anemia, unspecified Is this a current diagnosis for this admission?: Yes (10) Depression Qualifiers: Depression Type: other depression Qualified Code(s): F32.89 - Other specified depressive episodes Is this a current diagnosis for this admission?: Yes (11) Daya vaginitis Is this a current diagnosis for this admission?: Yes - Plan Summary Summary: (1) Endocarditis Qualifiers: Endocarditis type: infective Is this a current diagnosis for this admission?: Yes Plan: 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 Status post tricuspid valve replacement September 2018 at [facility]. As per previous physicians note her staff nurse midwife at at [place] is aware of this admission. Presented to ED with dull retrosternal chest pain which has been present since valve replacement. Was a started started on IV vancomycin by Dr. Bowen hospitalist at [facility]. 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 [facility] on regional diversion at the admission time and was admitted here at [facility]. 05/21/2019. TTE LVEF 60%. No thrombus or vegetations noted. Severe tricuspid regurgitation. RSVP 48 to 53 mmHg.05/27/2019 Started on empiric broad-spectrum IV antibiotics. PICC line placed on 05/22/2018 on the left basilic vein. PICC line removed 06/14/2019 as per ID recommendation. Please refer to note. Tip was cultured which came back negative. Multiple positive blood cultures for pseudomonas aeruginosa. Last negative blood culture 05/31/2019 Last negative blood culture 05/31/2019. Day 23 of 56 days. Expected completion date 07/30/2019. Day 25 IV cefepime. Day 13 Ciprofloxacin 750 mg p.o. twice daily. Day 31 IV antibiotics. Received 10 days of IV levofloxacin. Switch to ciprofloxacin IV as per ID recommendation. I have been informed that [facility] will be able to do SANJU starting early June. Patient has stable and receiving IV antibiotics SANJU can wait until early June if not will call [facility] again for transfer for SANJU. 06/09/2019. Infectious disease consulted. Recommendations noted. Please refer to note. Unfortunately patient has a drug abuse and could not be sent home on IV antibiotics. 06/24/2019-patient has endocarditis not a candidate to go home with an IV antibiotic therapy. Patient may need a SANJU this week. pt is presently on IV cefepime. 06/25/2019-patient has history of endocarditis secondary to percent 10 to use of IV drug abuse. Admitted with fever and chills. Blood cultures came back positive for pseudomonas aeruginosa latest blood cultures are negative. Patient is presently on cefepime and p.o. ciprofloxacin. Plan is to arrange for SANJU after 01 July at this hospital. Last night patient has no fever but Reiger's and chills. To closely monitor her medical condition plan is to move her to [facility] today. 06/26/2019-unfortunately the SANJU service is not available yet. The patient will continue her antibiotic therapy. She will need 6 weeks from the first set of blood cultures that were no growth. 06/27/2019-no changes to the treatment plan. 06/28/2019-she is complaining of plantar fasciitis. Achilles tendons are nont ovidio and appear intact. Will monitor while on quinolone therapy. 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 Status post tricuspid valve replacement September 2018 at [facility]. Presented to ED with dull retrosternal chest pain which has been present since valve replacement. Was a started started on IV vancomycin by Dr. Bowen hospitalist at [facility]. 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 [facility] on regional diversion at the admission time and was admitted here at [facility]. 05/21/2019. TTE LVEF 60%. No thrombus or vegetations noted. Severe tricuspid regurgitation. RSVP 48 to 53 mmHg.05/27/2019 Started on empiric broad-spectrum IV antibiotics. PICC line placed on 05/22/2018 on the left basilic vein. PICC line removed on 06/14/2019 as per ID recommendation. PICC line tip sent to culture. Multiple positive blood cultures for pseudomonas aeruginosa. Last negative blood culture 05/31/2019. Plan as per #1 06/24/2019-blood cultures came back positive for Pseudomonas aeruginosa on 05 29. Latest blood cultures are negative. As per ID recommendations PICC line was removed on . As listed above latest cultures are negative. Plan is to continue the present management. 06/25/2019-blood cultures from 05/29/2019 came back positive for Pseudomonas aeruginosa as per ID recommendations patient is on p.o. Cipro floxacillin and IV cephapirin. Waiting for a SANJU procedure after 01 July. Cultures are negative. Latest 06/26/2019-multiple repeated blood cultures are negative. Continue current treatment regimen. (3) IV drug abuse Is this a current diagnosis for this admission?: Yes Plan: Persistent IV drug abuse. Unfortunately patient seems to be abusing drugs while in the hospital. At times patient seems to be too sleepy. UDS on 06/08/2019 for back positive for opiates. Which was confirmed as morphine. Only on Subutex and tramadol in the hospital. Patient was advised on abstinence from recreational drug abuse. Currently on on Subutex since 05/27/2019 and tramadol. Was encouraged to rehab admission one day before discharge. 06/24/2019-patient has history of IV drug abuse. Counseling was provided today. 06/26/2019-continue Suboxone (4) Abdominal pain Qualifiers: Abdominal location: generalized Qualified Code(s): R10.84 - Generalized abdominal pain Is this a current diagnosis for this admission?: Yes Plan: Resolved. CT abdomen pelvis 06/06/2019 found no acute findings except for severe constipation. History of cholecystectomy. History of hepatitis C. History of hepatic steatosis. Lipase WNL. Continue beta-blockers and supportive measures. Continue bowel regimen. Encourage ambulation and high-fiber diet. 06/24/2019-patient came with complaints of abdominal pain. Which was resolved. Lipase levels are within normal limits. 06/26/2019-the patient does have history of hepatitis C. Since the rapid response 2 nights ago the patient exhibits increased LFTs. She does have a history of hepatitis C. I will recheck the liver enzymes and if they continue to increase I will obtain imaging of the abdomen. 06/27/2019-we discussed the elevated liver enzymes. She cannot remember when her last evaluation for hepatitis C was. I will check a hep C RNA level. We will continue to monitor the chemistries. 06/28/2019-liver enzymes are slowly improving. Unsure of the spike. Could be related to long-term antibiotics. We will continue to monitor. (5) Anemia Qualifiers: Anemia type: iron deficiency Iron deficiency anemia type: unspecified iron deficiency Qualified Code(s): D50.9 - Iron deficiency anemia, unspecified Is this a current diagnosis for this admission?: Yes Plan: Microcytic. Likely combination of anemia of chronic disease and iron deficiency anemia. Denies any easy bleeding, nosebleeds, hematemesis, hemoptysis, hematochezia, vaginal bleeding or melena. 05/30/2019. Iron panel. Serum iron 18.8, TIBC 270, saturation 7%, ferritin 213, folate 5.53, B12 folate 306, 06/08/2019. Status post 2 PRBC transfusion. Daily H&H, monitor for bleeding, supportive transfusions, ferrous sulfate. 06/24/2019-patient received 2 units of PRBC. During the hospital stay. Latest hemoglobin is 11.4. Stable. 06/25/2019-patient received 2 units of PRBC during the hospital stay latest hemoglobin is 11.4 plan is to closely trend the hemoglobin on daily basis. 06/26/2019-continue to monitor hemoglobin. #6 ) plantar fasciitis-the patient developed tenderness under the arch of the left foot. I had physical therapy see the patient. They believe it is plantar fasciitis. She is on quinolone therapy long-term. This can have an adverse effect on tendons. We will continue to monitor. Physical therapy provided exercise plan for the patient. - Time Time Spent with patient: Less than 15 minutes Medications reviewed and adjusted accordingly: Yes Anticipated discharge: Home
[2019-06-28] MEDS: BUPRENORPHINE HCL 2 MG SUBLINGUAL TABLET SL SCH ×2 (11:15→21:25)
[2019-06-28] MEDS ORDERED: METOPROLOL TARTRATE PF/INJ 5 MG/5 ML SDV IV ONE (18:00)
[2019-06-28] MEDS ORDERED: METOPROLOL TARTRATE PF/INJ 5 MG/5 ML SDV IV PRN (19:05)
[2019-06-28] MEDS: QUETIAPINE FUMARATE 25 MG TABLET PO SCH (21:26)
[2019-06-28] MEDS: ATORVASTATIN CALCIUM 40 MG TABLET PO SCH (21:27)
[2019-06-29] MEDS: CEFEPIME 2 GM/D5W RTU 2 GM/50 ML RTUPB IV SCH ×3 (01:38→18:18)
[2019-06-29] MEDS: TIZANIDINE HCL 4 MG TABLET PO PRN ×2 (01:43→13:49)
[2019-06-29 02:37] LABS: URINE AMPHETAMINES SCREEN NEGATIVE; URINE BARBITURATES SCREEN NEGATIVE; URINE BENZODIAZEPINES SCREEN NEGATIVE; URINE COCAINE SCREEN NEGATIVE; URINE MARIJUANA (THC) SCREEN NEGATIVE; URINE METHADONE SCREEN NEGATIVE; URINE PHENCYCLIDINE SCREEN NEGATIVE
[2019-06-29 04:54] LABS: HEMATOCRIT 31.2 % (36.0-47.0); HEMOGLOBIN 10.3 g/dL (12.0-15.5); MEAN CORPUSCULAR HEMOGLOBIN 26.9 pg (27.0-33.4); MEAN CORPUSCULAR HGB CONC 32.9 g/dL (32.0-36.0); MEAN CORPUSCULAR VOLUME 82 fl (80-97); PLATELET COUNT 222 10^3/uL (150-450); RED BLOOD COUNT 3.83 10^6/uL (3.72-5.28); RED CELL DISTRIBUTION WIDTH 17.3 % (11.5-14.0); WHITE BLOOD COUNT 9.3 10^3/uL (4.0-10.5)
[2019-06-29 05:18] LABS: ANION GAP 8 (5-19); BLOOD UREA NITROGEN 17 mg/dL (7-20); CALCIUM 9.3 mg/dL (8.4-10.2); CARBON DIOXIDE 22 mmol/L (22-30); CHLORIDE 107 mmol/L (98-107); GLUCOSE 96 mg/dL (75-110); POTASSIUM 4.6 mmol/L (3.6-5.0)
[2019-06-29] MEDS: PANTOPRAZOLE SODIUM 40 MG TABLET.DR PO SCH (05:52)
--- NOTE | 2019-06-29 08:50 | EKG REPORT ---
SEVERITY:- BORDERLINE ECG - SINUS RHYTHM PROBABLE LEFT ATRIAL ABNORMALITY : Confirmed by: Daphnie Lambert MD 29-Jun-2019 08:49:30
[2019-06-29] MEDS: BUPRENORPHINE HCL 2 MG SUBLINGUAL TABLET SL SCH ×2 (10:50→22:29)
[2019-06-29] MEDS: LISINOPRIL 5 MG TABLET PO SCH (10:50)
[2019-06-29] MEDS: HEPARIN SOD (PORCINE) 5,000 UNIT/ML 1 ML VIAL SUBCUT SCH ×2 (10:50→22:29)
[2019-06-29] MEDS: CIPROFLOXACIN HCL 750 MG TABLET PO SCH ×2 (10:50→22:25)
[2019-06-29] MEDS: METOPROLOL TARTRATE 25 MG TABLET PO SCH ×2 (10:51→22:27)
[2019-06-29] MEDS: FERROUS SULFATE 325 MG TABLET PO SCH (10:51)
[2019-06-29] MEDS: LACTOBACILLUS ACIDOPHILUS 250 MG TAB PO SCH ×2 (10:52→17:53)
[2019-06-29] MEDS: NORMAL SALINE 10 ML SDV (SCHEDULED) IV SCH ×2 (10:52→22:27)
[2019-06-29] MEDS ORDERED: NICOTINE 7 MG/24 HR PATCH.TD24 TD PRN (14:04)
--- NOTE | 2019-06-29 14:06 | PDOC PROGRESS REPORT ---
Subjective Progress Note for:: 06/29/19 Subjective:: There was significant concern late yesterday. The patient was in the bathroom. Her heart rate shot up over 150. There is a red spot on the right side of her neck. There was question that she injected herself with recreational drugs. She also complains of worsening pain in her left foot. Reason For Visit: IV DRUG ABUSE,SEPSIS,ENDOCARDITIS Physical Exam Vital Signs: Temp Pulse Resp BP Pulse Ox 99.1 F 82 16 105/81 93 06/29/19 12:27 06/29/19 12:27 06/29/19 12:27 06/29/19 12:27 06/29/19 12:27 Intake & Output 06/28/19 06/29/19 06/30/19 06:59 06:59 06:59 Intake Total 1880 1534 50 Output Total 118 0 Balance 1762 1534 50 Weight 92.2 kg 90 kg General appearance: PRESENT: cooperative, mild distress - Mild to moderate distress. Tearful., well-developed Head exam: PRESENT: normocephalic Ear exam: PRESENT: normal external ear exam. ABSENT: bleeding, drainage Neck exam: PRESENT: other - On the right side of the neck there is a small scabbed area approximately 2 to 3 mm long. There is no surrounding erythema. There is no fluctuance and the tissue is soft. Respiratory exam: PRESENT: clear to auscultation sandrita, symmetrical, unlabored. ABSENT: crackles, prolonged expiratory phas, rales, rhonchi, tachypnea, wheezes Cardiovascular exam: PRESENT: RRR, +S1, +S2 GI/Abdominal exam: PRESENT: normal bowel sounds, soft. ABSENT: distended, tenderness Extremities exam: PRESENT: tenderness - Left plantar area across the metatarsals at the arch of the foot Musculoskeletal exam: PRESENT: other - There is a small red spot on the lateral aspect of the left foot. There is not overwhelming erythema and no warmth. No localized edema. Neurological exam: PRESENT: alert, awake, oriented to person, oriented to place, oriented to time, oriented to situation, CN II-XII grossly intact Psychiatric exam: PRESENT: other - Tearful affect as noted above. ABSENT: agitated, anxious Results Laboratory Results: 06/29/19 04:35 06/29/19 04:35 06/29/19 06/29/19 04:35 04:35 WBC 9.3 RBC 3.83 Hgb 10.3 L Hct 31.2 L MCV 82 MCH 26.9 L MCHC 32.9 RDW 17.3 H Plt Count 222 Sodium 137.4 Potassium 4.6 Chloride 107 Carbon Dioxide 22 Anion Gap 8 BUN 17 Creatinine 0.65 Est GFR ( Amer) > 60 Glucose 96 Calcium 9.3 Magnesium 1.7 05/21/19 05/22/19 05/22/19 23:07 02:06 11:00 Creatine Kinase CK-MB (CK-2) Troponin I 0.098 0.098 0.070 NT-Pro-B Natriuret Pep 05/22/19 05/22/19 05/22/19 14:00 14:35 20:04 Creatine Kinase CK-MB (CK-2) Troponin I Cancelled 0.060 0.037 NT-Pro-B Natriuret Pep 05/28/19 05/28/19 06/02/19 00:15 00:15 00:20 Creatine Kinase < 20 L < 20 L CK-MB (CK-2) 0.49 Troponin I 0.077 NT-Pro-B Natriuret Pep 06/02/19 06/02/19 06/02/19 00:20 06:15 06:15 Creatine Kinase < 20 L CK-MB (CK-2) 1.53 1.39 Troponin I 0.194 0.171 NT-Pro-B Natriuret Pep 06/02/19 06/02/19 06/28/19 13:30 13:30 03:40 Creatine Kinase < 20 L 26 L CK-MB (CK-2) 1.68 Troponin I 0.175 NT-Pro-B Natriuret Pep 4000 H Impressions: Chest X-Ray 05/21/19 23:04 IMPRESSION: 1. No acute pulmonary findings. 2. Previous sternotomy Abdomen Ultrasound 05/28/19 00:00 IMPRESSION: Mild splenomegaly. No acute findings otherwise. Abdomen/Pelvis CT 06/06/19 00:00 IMPRESSION: 1. Gastric distention and debris. Ileus. Constipation. 2. Normal appendix. No acute abdominopelvic abnormality. Guidance Fluoroscopy 06/23/19 00:00 IMPRESSION: SUCCESSFUL PLACEMENT OF A 5 FR DUAL LUMEN 38 CM PICC IN THE LEFT BASILIC VEIN. Interventional Vascular Procedure 06/23/19 00:00 IMPRESSION: SUCCESSFUL PLACEMENT OF A 5 FR DUAL LUMEN 38 CM PICC IN THE LEFT BASILIC VEIN. PICC Line Insertion 06/23/19 00:00 IMPRESSION: SUCCESSFUL PLACEMENT OF A 5 FR DUAL LUMEN 38 CM PICC IN THE LEFT BASILIC VEIN. Assessment and Plan - Diagnosis (1) Bacteremia due to Pseudomonas Is this a current diagnosis for this admission?: Yes (2) UTI (urinary tract infection) Qualifiers: Urinary tract infection type: acute cystitis Hematuria presence: without hematuria Qualified Code(s): N30.00 - Acute cystitis without hematuria Is this a current diagnosis for this admission?: Yes (3) Hypokalemia Is this a current diagnosis for this admission?: Yes (4) IV drug abuse Is this a current diagnosis for this admission?: Yes (5) Endocarditis Qualifiers: Endocarditis type: infective Is this a current diagnosis for this admission?: Yes (6) Abdominal pain Qualifiers: Abdominal location: generalized Qualified Code(s): R10.84 - Generalized abdominal pain Is this a current diagnosis for this admission?: Yes (7) Hepatitis C Qualifiers: Viral hepatitis chronicity: chronic Hepatic coma status: without hepatic coma Qualified Code(s): B18.2 - Chronic viral hepatitis C Is this a current diagnosis for this admission?: Yes (8) Steatohepatitis Is this a current diagnosis for this admission?: Yes (9) Anemia Qualifiers: Anemia type: iron deficiency Iron deficiency anemia type: unspecified iron deficiency Qualified Code(s): D50.9 - Iron deficiency anemia, unspecified Is this a current diagnosis for this admission?: Yes (10) Depression Qualifiers: Depression Type: other depression Qualified Code(s): F32.89 - Other specif ied depressive episodes Is this a current diagnosis for this admission?: Yes (11) Daya vaginitis Is this a current diagnosis for this admission?: Yes (12) Plantar fasciitis of left foot Is this a current diagnosis for this admission?: Yes (13) Tachycardia Is this a current diagnosis for this admission?: Yes - Plan Summary Summary: (1) Endocarditis Qualifiers: Endocarditis type: infective Is this a current diagnosis for this admission?: Yes Plan: 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 Presented to ED with dull retrosternal chest pain which has been present since valve replacement. Was a started started on IV vancomycin by Dr. Bowen hospitalist at [facility]. 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 [facility] on regional diversion at the admission time and was admitted here at [facility]. 05/21/2019. TTE LVEF 60%. No thrombus or vegetations noted. Severe tricuspid regurgitation. RSVP 48 to 53 mmHg.05/27/2019 Started on empiric broad-spectrum IV antibiotics. PICC line placed on 05/22/2018 on the left basilic vein. PICC line removed 06/14/2019 as per ID recommendation. Please refer to note. Tip was cultured which came back negative. Multiple positive blood cultures for pseudomonas aeruginosa. Last negative blood culture 05/31/2019 Last negative blood culture 05/31/2019. Day 23 of 56 days. Expected completion date 07/30/2019. Day 25 IV cefepime. Day 13 Ciprofloxacin 750 mg p.o. twice daily. Day 31 IV antibiotics. Received 10 days of IV levofloxacin. Switch to ciprofloxacin IV as per ID recommendation. I have been informed that [facility] will be able to do SANJU starting early June. Patient has stable and receiving IV antibiotics SANJU can wait until early June if not will call [facility] again for transfer for SANJU. 06/09/2019. Infectious disease consulted. Recommendations noted. Please refer to note. Unfortunately patient has a drug abuse and could not be sent home on IV antibiotics. 06/24/2019-patient has endocarditis not a candidate to go home with an IV antibiotic therapy. Patient may need a SANJU this week. pt is presently on IV cefepime. 06/25/2019-patient has history of endocarditis secondary to percent 10 to use of IV drug abuse. Admitted with fever and chills. Blood cultures came back positive for pseudomonas aeruginosa latest blood cultures are negative. Patient is presently on cefepime and p.o. ciprofloxacin. Plan is to arrange for SANJU after 01 July at this hospital. Last night patient has no fever but Reiger's and chills. To closely monitor her medical condition plan is to move her to [facility] today. 06/26/2019-unfortunately the SANJU service is not available yet. The patient will continue her antibiotic therapy. She will need 6 weeks from the first set of blood cultures that were no growth. 06/27/2019-no changes to the treatment plan. 06/28/2019-she is complaining of plantar fasciitis. Achilles tendons are nontender and appear intact. Will monitor while on quinolone therapy. 06/29/2019-no change in therapy at this time. Expected end date July 30. 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 Presented to ED with dull retrosternal chest pain which has been present since valve replacement. Was a started started on IV vancomycin by Dr. Bowen hospitalist at [facility]. 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 [facility] on regional diversion at the admission time and was admitted here at [facility]. 05/21/2019. TTE LVEF 60%. No thrombus or vegetations noted. Severe tricuspid regurgitation. RSVP 48 to 53 mmHg.05/27/2019 Started on empiric broad-spectrum IV antibiotics. PICC line placed on 05/22/2018 on the left basilic vein. PICC line removed on 06/14/2019 as per ID recommendation. PICC line tip sent to culture. Multiple positive blood cultures for pseudomonas aeruginosa. Last negative blood culture 05/31/2019. Plan as per #1 06/24/2019-blood cultures came back positive for Pseudomonas aeruginosa on 05 29. Latest blood cultures are negative. As per ID recommendations PICC line was removed on . As listed above latest cultures are negative. Plan is to continue the present management. 06/25/2019-blood cultures from 05/29/2019 came back positive for Pseudomonas aeruginosa as per ID recommendations patient is on p.o. Cipro floxacillin and IV cephapirin. Waiting for a SANJU procedure after 01 July. Cultures are negative. Latest 06/26/2019-multiple repeated blood cultures are negative. Continue current treatment regimen. 06/29/2019-as above (3) IV drug abuse Is this a current diagnosis for this admission?: Yes Plan: Persistent IV drug abuse. Unfortunately patient seems to be abusing drugs while in the hospital. At times patient seems to be too sleepy. UDS on 06/08/2019 for back positive for opiates. Which was confirmed as morphine. Only on Subutex and tramadol in the hospital. Patient was advised on abstinence from recreational drug abuse. Currently on on Subutex since 05/27/2019 and tramadol. Was encouraged to rehab admission one day before discharge. 06/24/2019-patient has history of IV drug abuse. Counseling was provided today. 06/26/2019-continue Suboxone 06/29/2019-suspected self injection last night. Patient reports tachycardia was from using vape. Had a long discussion about compliance with hospital rules and treatment regimen. (4) Abdominal pain Qualifiers: Abdominal location: generalized Qualified Code(s): R10.84 - Generalized abdominal pain Is this a current diagnosis for this admission?: Yes Plan: Resolved. CT abdomen pelvis 06/06/2019 found no acute findings except for severe constipation. History of cholecystectomy. History of hepatitis C. History of hepatic steatosis. Lipase WNL. Continue beta-blockers and supportive measures. Continue bowel regimen. Encourage ambulation and high-fiber diet. 06/24/2019-patient came with complaints of abdominal pain. Which was resolved. Lipase levels are within normal limits. 06/26/2019-the patient does have history of hepatitis C. Since the rapid response 2 nights ago the patient exhibits increased LFTs. She does have a history of hepatitis C. I will recheck the liver enzymes and if they continue to increase I will obtain imaging of the abdomen. 06/27/2019-we discussed the elevated liver enzymes. She cannot remember when her last evaluation for hepatitis C was. I will check a hep C RNA level. We will continue to monitor the chemistries. 06/28/2019-liver enzymes are slowly improving. Unsure of the spike. Could be related to long-term antibiotics. We will continue to monitor. (5) Anemia Qualifiers: Anemia type: iron deficiency Iron deficiency anemia type: unspecified iron deficiency Qualified Code(s): D50.9 - Iron deficiency anemia, unspecified Is this a current diagnosis for this admission?: Yes Plan: Microcytic. Likely combination of anemia of chronic disease and iron deficiency anemia. Denies any easy bleeding, nosebleeds, hematemesis, hemoptysis, hematochezia, vaginal bleeding or melena. 05/30/2019. Iron panel. Serum iron 18.8, TIBC 270, saturation 7%, ferritin 213, folate 5.53, B12 folate 306, 06/08/2019. Status post 2 PRBC transfusion. Daily H&H, monitor for bleeding, supportive transfusions, ferrous sulfate. 06/24/2019-patient received 2 units of PRBC. During the hospital stay. Latest hemoglobin is 11.4. Stable. 06/25/2019-patient received 2 units of PRBC during the hospital stay latest hemoglobin is 11.4 plan is to closely trend the hemoglobin on daily basis. 06/26/2019-continue to monitor hemoglobin. #6 ) plantar fasciitis-the patient developed tenderness under the arch of the left foot. I had physical therapy see the patient. They believe it is plantar fasciitis. She is on quinolone therapy long-term. This can have an adverse effect on tendons. We will continue to monitor. Physical therapy provided exercise plan for the patient. 06/29/2019-patient reports increased pain. I have added IV Toradol as an anti- inflammatory and physical therapy is working with her. - Time Time Spent with patient: 15-24 minutes Medications reviewed and adjusted accordingly: Yes
--- NOTE | 2019-06-29 15:03 | RADIOLOGY REPORT (SQ) ---
EXAM DESCRIPTION: FOOT LEFT 2 VIEWS COMPLETED DATE/TIME: 06/29/2019 2:54 pm REASON FOR STUDY: New onset left foot pain COMPARISON: None. NUMBER OF VIEWS: Two views. TECHNIQUE: AP and lateral without weight bearing radiographic images acquired of the left foot. LIMITATIONS: None. FINDINGS: MINERALIZATION: Normal. BONES: No acute fracture or dislocation. No worrisome bone lesions. No significant osteophytes. JOINTS: No erosions. No cassandra-articular osteopenia. No chondrocalcinosis. SOFT TISSUES: No swelling. No calcifications. OTHER: No other significant finding. IMPRESSION: NEGATIVE STUDY OF THE LEFT FOOT. NO EXPLANATION FOR PAIN. TECHNICAL DOCUMENTATION: JOB ID: [id number] [employer]- All Rights Reserved Reading location - IP/workstation name: [email or web address]
[2019-06-29] MEDS: KETOROLAC TROMETHAMINE INJ/PF 30 MG/1 ML SDV IV PRN (18:17)
[2019-06-29] MEDS: QUETIAPINE FUMARATE 25 MG TABLET PO SCH (22:28)
[2019-06-29] MEDS: ATORVASTATIN CALCIUM 40 MG TABLET PO SCH (22:28)
[2019-06-30] MEDS: CEFEPIME 2 GM/D5W RTU 2 GM/50 ML RTUPB IV SCH ×3 (01:46→18:13)
[2019-06-30] MEDS: TIZANIDINE HCL 4 MG TABLET PO PRN ×3 (01:47→21:08)
[2019-06-30] MEDS: PANTOPRAZOLE SODIUM 40 MG TABLET.DR PO SCH (05:27)
[2019-06-30] MEDS: FERROUS SULFATE 325 MG TABLET PO SCH (08:24)
[2019-06-30] MEDS: LACTOBACILLUS ACIDOPHILUS 250 MG TAB PO SCH ×2 (10:05→18:13)
[2019-06-30] MEDS: LISINOPRIL 5 MG TABLET PO SCH (10:08)
[2019-06-30] MEDS: NORMAL SALINE 10 ML SDV (SCHEDULED) IV SCH (10:08)
[2019-06-30] MEDS: CIPROFLOXACIN HCL 750 MG TABLET PO SCH ×2 (10:08→21:08)
[2019-06-30] MEDS: BUPRENORPHINE HCL 2 MG SUBLINGUAL TABLET SL SCH ×2 (10:08→21:08)
[2019-06-30] MEDS: METOPROLOL TARTRATE 25 MG TABLET PO SCH ×2 (10:09→21:06)
[2019-06-30] MEDS: HEPARIN SOD (PORCINE) 5,000 UNIT/ML 1 ML VIAL SUBCUT SCH ×2 (10:09→21:08)
--- NOTE | 2019-06-30 12:13 | PDOC PROGRESS REPORT ---
Subjective Progress Note for:: 06/30/19 Subjective:: The patient is still reporting significant foot pain on the left from plantar fasciitis. She also reports having vivid dreams. The only new medication has been Seroquel at night. Reason For Visit: IV DRUG ABUSE,SEPSIS,ENDOCARDITIS Physical Exam Vital Signs: Temp Pulse Resp BP Pulse Ox 98.2 F 70 18 98/44 L 99 06/30/19 07:17 06/30/19 07:17 06/30/19 07:17 06/30/19 07:17 06/30/19 07:17 Intake & Output 06/29/19 06/30/19 07/01/19 06:59 06:59 06:59 Intake Total 1534 1350 50 Output Total 0 0 Balance 1534 1350 50 Weight 90 kg 80.9 kg General appearance: PRESENT: no acute distress, cooperative, well-developed Head exam: PRESENT: atraumatic, normocephalic Neck exam: PRESENT: full ROM. ABSENT: lymphadenopathy, tenderness Respiratory exam: PRESENT: clear to auscultation sandrita, symmetrical, unlabored. ABSENT: rales, rhonchi, tachypnea, wheezes Cardiovascular exam: PRESENT: RRR, +S1, +S2, systolic murmur - 4/6 GI/Abdominal exam: PRESENT: normal bowel sounds, soft. ABSENT: distended, tenderness Extremities exam: PRESENT: other - Tender under the arch of the left foot. ABSENT: calf tenderness, joint swelling Musculoskeletal exam: PRESENT: ambulatory, normal inspection. ABSENT: deformity Neurological exam: PRESENT: alert, awake, oriented to person, oriented to place, oriented to time, oriented to situation, CN II-XII grossly intact Psychiatric exam: PRESENT: appropriate affect. ABSENT: agitated, anxious Focused psych exam: PRESENT: other - Vivid dreams. Reports frightening dreams. Skin exam: PRESENT: dry, normal color, warm Results Laboratory Results: 06/29/19 04:35 06/29/19 04:35 06/25/19 08:42 Blood Blood Culture - Final NO GROWTH IN 5 DAYS 06/25/19 06:18 Blood Blood Culture - Final NO GROWTH IN 5 DAYS 05/21/19 05/22/19 05/22/19 23:07 02:06 11:00 Creatine Kinase CK-MB (CK-2) Troponin I 0.098 0.098 0.070 NT-Pro-B Natriuret Pep 05/22/19 05/22/19 05/22/19 14:00 14:35 20:04 Creatine Kinase CK-MB (CK-2) Troponin I Cancelled 0.060 0.037 NT-Pro-B Natriuret Pep 05/28/19 05/28/19 06/02/19 00:15 00:15 00:20 Creatine Kinase < 20 L < 20 L CK-MB (CK-2) 0.49 Troponin I 0.077 NT-Pro-B Natriuret Pep 06/02/19 06/02/19 06/02/19 00:20 06:15 06:15 Creatine Kinase < 20 L CK-MB (CK-2) 1.53 1.39 Troponin I 0.194 0.171 NT-Pro-B Natriuret Pep 06/02/19 06/02/19 06/28/19 13:30 13:30 03:40 Creatine Kinase < 20 L 26 L CK-MB (CK-2) 1.68 Troponin I 0.175 NT-Pro-B Natriuret Pep 4000 H Impressions: Chest X-Ray 05/21/19 23:04 IMPRESSION: 1. No acute pulmonary findings. 2. Previous sternotomy Abdomen Ultrasound 05/28/19 00:00 IMPRESSION: Mild splenomegaly. No acute findings otherwise. Abdomen/Pelvis CT 06/06/19 00:00 IMPRESSION: 1. Gastric distention and debris. Ileus. Constipation. 2. Normal appendix. No acute abdominopelvic abnormality. Guidance Fluoroscopy 06/23/19 00:00 IMPRESSION: SUCCESSFUL PLACEMENT OF A 5 FR DUAL LUMEN 38 CM PICC IN THE LEFT BASILIC VEIN. Interventional Vascular Procedure 06/23/19 00:00 IMPRESSION: SUCCESSFUL PLACEMENT OF A 5 FR DUAL LUMEN 38 CM PICC IN THE LEFT BASILIC VEIN. PICC Line Insertion 06/23/19 00:00 IMPRESSION: SUCCESSFUL PLACEMENT OF A 5 FR DUAL LUMEN 38 CM PICC IN THE LEFT BASILIC VEIN. Foot X-Ray 06/29/19 00:00 IMPRESSION: NEGATIVE STUDY OF THE LEFT FOOT. NO EXPLANATION FOR PAIN. Assessment and Plan - Diagnosis (1) Bacteremia due to Pseudomonas Is this a current diagnosis for this admission?: Yes (2) UTI (urinary tract infection) Qualifiers: Urinary tract infection type: acute cystitis Hematuria presence: without hematuria Qualified Code(s): N30.00 - Acute cystitis without hematuria Is this a current diagnosis for this admission?: Yes (3) Hypokalemia Is this a current diagnosis for this admission?: Yes (4) IV drug abuse Is this a current diagnosis for this admission?: Yes (5) Endocarditis Qualifiers: Endocarditis type: infective Is this a current diagnosis for this admission?: Yes (6) Abdominal pain Qualifiers: Abdominal location: generalized Qualified Code(s): R10.84 - Generalized abdominal pain Is this a current diagnosis for this admission?: Yes (7) Hepatitis C Qualifiers: Viral hepatitis chronicity: chronic Hepatic coma status: without hepatic coma Qualified Code(s): B18.2 - Chronic viral hepatitis C Is this a current diagnosis for this admission?: Yes (8) Steatohepatitis Is this a current diagnosis for this admission?: Yes (9) Anemia Qualifiers: Anemia type: iron deficiency Iron deficiency anemia type: unspecified iron deficiency Qualified Code(s): D50.9 - Iron deficiency anemia, unspecified Is this a current diagnosis for this admission?: Yes (10) Depression Qualifiers: Depression Type: other depression Qualified Code(s): F32.89 - Other specified depressive episodes Is this a current diagnosis for this admission?: Yes (11) Daya vaginitis Is this a current diagnosis for this admission?: Yes (12) Plantar fasciitis of left foot Is this a current diagnosis for this admission?: Yes (13) Tachycardia Is this a current diagnosis for this admission?: Yes - Plan Summary Summary: (1) Endocarditis Qualifiers: Endocarditis type: infective Is this a current diagnosis for this admission?: Yes Plan: 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 Presented to ED with dull retrosternal chest pain which has been present since valve replacement. Was a started started on IV vancomycin by Dr. Bowen hospitalist at [facility]. 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 [facility] on regional diversion at the admission time and was admitted here at [facility]. 05/21/2019. TTE LVEF 60%. No thrombus or vegetations noted. Severe tricuspid regurgitation. RSVP 48 to 53 mmHg.05/27/2019 Started on empiric broad-spectrum IV antibiotics. PICC line placed on 05/22/2018 on the left basilic vein. PICC line removed 06/14/2019 as per ID recommendation. Please refer to note. Tip was cultured which came back negative. Multiple positive blood cultures for pseudomonas aeruginosa. Last negative blood culture 05/31/2019 Last negative blood culture 05/31/2019. Day 23 of 56 days. Expected completion date 07/30/2019. Day 25 IV cefepime. Day 13 Ciprofloxacin 750 mg p.o. twice daily. Day 31 IV antibiotics. Received 10 days of IV levofloxacin. Switch to ciprofloxacin IV as per ID recommendation. I have been informed that [facility] will be able to do SANJU starting early June. Patient has stable and receiving IV antibiotics SANJU can wait until early June if not will call [facility] again for transfer for SANJU. 06/09/2019. Infectious disease consulted. Recommendations noted. Please refer to note. Unfortunately patient has a drug abuse and could not be sent home on IV antibiotics. 06/24/2019-patient has endocarditis not a candidate to go home with an IV antibiotic therapy. Patient may need a SANJU this week. pt is presently on IV cefepime. 06/25/2019-patient has history of endocarditis secondary to percent 10 to use of IV drug abuse. Admitted with fever and chills. Blood cultures came back positive for pseudomonas aeruginosa latest blood cultures are negative. Patient is presently on cefepime and p.o. ciprofloxacin. Plan is to arrange for SANJU after 01 July at this hospital. Last night patient has no fever but Reiger's and chills. To closely monitor her medical condition plan is to move her to [facility] today. 06/26/2019-unfortunately the SANJU service is not available yet. The patient will continue her antibiotic therapy. She will need 6 weeks from the first set of blood cultures that were no growth. 06/27/2019-no changes to the treatment plan. 06/28/2019-she is complaining of plantar fasciitis. Achilles tendons are nontender and appear intact. Will monitor while on quinolone therapy. 06/29/2019-no change in therapy at this time. Expected end date July 30. 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 Presented to ED with dull retrosternal chest pain which has been present since valve replacement. Was a started started on IV vancomycin by Dr. Bowen hospitalist at [facility]. 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 [facility] on regional diversion at the admission time and was admitted here at [facility]. 05/21/2019. TTE LVEF 60%. No thrombus or vegetations noted. Severe tricuspid regurgitation. RSVP 48 to 53 mmHg.05/27/2019 Started on empiric broad-spectrum IV antibiotics. PICC line placed on 05/22/2018 on the left basilic vein. PICC line removed on 06/14/2019 as per ID recommendation. PICC line tip sent to culture. Multiple positive blood cultures for pseudomonas aeruginosa. Last negative blood culture 05/31/2019. Plan as per #1 06/24/2019-blood cultures came back positive for Pseudomonas aeruginosa on 05 29. Latest blood cultures are negative. As per ID recommendations PICC line was removed on . As listed above latest cultures are negative. Plan is to continue the present management. 06/25/2019-blood cultures from 05/29/2019 came back positive for Pseudomonas a eruginosa as per ID recommendations patient is on p.o. Cipro floxacillin and IV cephapirin. Waiting for a SANJU procedure after 01 July. Cultures are negative. Latest 06/26/2019-multiple repeated blood cultures are negative. Continue current treatment regimen. 06/29/2019-as above (3) IV drug abuse Is this a current diagnosis for this admission?: Yes Plan: Persistent IV drug abuse. Unfortunately patient seems to be abusing drugs while in the hospital. At times patient seems to be too sleepy. UDS on 06/08/2019 for back positive for opiates. Which was confirmed as morphine. Only on Subutex and tramadol in the hospital. Patient was advised on abstinence from recreational drug abuse. Currently on on Subutex since 05/27/2019 and tramadol. Was encouraged to rehab admission one day before discharge. 06/24/2019-patient has history of IV drug abuse. Counseling was provided today. 06/26/2019-continue Suboxone 06/29/2019-suspected self injection last night. Patient reports tachycardia was from using vape. Had a long discussion about compliance with hospital rules and treatment regimen. (4) Abdominal pain Qualifiers: Abdominal location: generalized Qualified Code(s): R10.84 - Generalized abdominal pain Is this a current diagnosis for this admission?: Yes Plan: Resolved. CT abdomen pelvis 06/06/2019 found no acute findings except for severe constipation. History of cholecystectomy. History of hepatitis C. History of hepatic steatosis. Lipase WNL. Continue beta-blockers and supportive measures. Continue bowel regimen. Encourage ambulation and high-fiber diet. 06/24/2019-patient came with complaints of abdominal pain. Which was resolved. Lipase levels are within normal limits. 06/26/2019-the patient does have history of hepatitis C. Since the rapid response 2 nights ago the patient exhibits increased LFTs. She does have a history of hepatitis C. I will recheck the liver enzymes and if they continue to increase I will obtain imaging of the abdomen. 06/27/2019-we discussed the elevated liver enzymes. She cannot remember when her last evaluation for hepatitis C was. I will check a hep C RNA level. We will continue to monitor the chemistries. 06/28/2019-liver enzymes are slowly improving. Unsure of the spike. Could be related to long-term antibiotics. We will continue to monitor. (5) Anemia Qualifiers: Anemia type: iron deficiency Iron deficiency anemia type: unspecified iron deficiency Qualified Code(s): D50.9 - Iron deficiency anemia, unspecified Is this a current diagnosis for this admission?: Yes Plan: Microcytic. Likely combination of anemia of chronic disease and iron deficiency anemia. Denies any easy bleeding, nosebleeds, hematemesis, hemoptysis, hematochezia, vaginal bleeding or melena. 05/30/2019. Iron panel. Serum iron 18.8, TIBC 270, saturation 7%, ferritin 213, folate 5.53, B12 folate 306, 06/08/2019. Status post 2 PRBC transfusion. Daily H&H, monitor for bleeding, supportive transfusions, ferrous sulfate. 06/24/2019-patient received 2 units of PRBC. During the hospital stay. Latest hemoglobin is 11.4. Stable. 06/25/2019-patient received 2 units of PRBC during the hospital stay latest hemoglobin is 11.4 plan is to closely trend the hemoglobin on daily basis. 06/26/2019-continue to monitor hemoglobin. #6 ) plantar fasciitis-the patient developed tenderness under the arch of the left foot. I had physical therapy see the patient. They believe it is plantar fasciitis. She is on quinolone therapy long-term. This can have an adverse effect on tendons. We will continue to monitor. Physical therapy provided exercise plan for the patient. 06/29/2019-patient reports increased pain. I have added IV Toradol as an anti- inflammatory and physical therapy is working with her. 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 This puts the stop date at approximately July 14. She should still have a SANJU once that service is finally organized and offered. Anemia-continue iron supplement Drug abuse-continue Subutex Neuropathy-continue Neurontin Plantar fasciitis-she is working with physical therapy. Toradol is available. Consider wrapping her foot for support. Pain management-avoid narcotics completely - Time Time Spent with patient: Less than 15 minutes Medications reviewed and adjusted accordingly: Yes Anticipated discharge: Home
[2019-06-30] MEDS: PROMETHAZINE HCL 25 MG TABLET PO PRN ×2 (14:01→19:51)
[2019-06-30] MEDS: KETOROLAC TROMETHAMINE INJ/PF 30 MG/1 ML SDV IV PRN (18:52)
[2019-06-30] MEDS: QUETIAPINE FUMARATE 25 MG TABLET PO SCH (21:07)
[2019-06-30] MEDS: GABAPENTIN 300 MG CAPSULE PO SCH (21:08)
[2019-06-30] MEDS: ATORVASTATIN CALCIUM 40 MG TABLET PO SCH (21:08)
[2019-07-01] MEDS: CEFEPIME 2 GM/D5W RTU 2 GM/50 ML RTUPB IV SCH ×3 (01:53→18:26)
[2019-07-01] MEDS: KETOROLAC TROMETHAMINE INJ/PF 30 MG/1 ML SDV IV PRN ×3 (01:54→19:35)
[2019-07-01] MEDS: PANTOPRAZOLE SODIUM 40 MG TABLET.DR PO SCH (05:07)
[2019-07-01] MEDS: NORMAL SALINE 10 ML SDV (SCHEDULED) IV SCH ×3 (05:09→22:22)
[2019-07-01] MEDS: BUPRENORPHINE HCL 2 MG SUBLINGUAL TABLET SL SCH ×2 (09:51→22:22)
[2019-07-01] MEDS: LISINOPRIL 5 MG TABLET PO SCH (09:52)
[2019-07-01] MEDS: PROMETHAZINE HCL 25 MG TABLET PO PRN ×2 (09:53→19:35)
[2019-07-01] MEDS: FERROUS SULFATE 325 MG TABLET PO SCH (09:53)
[2019-07-01] MEDS: METOPROLOL TARTRATE 25 MG TABLET PO SCH ×2 (09:55→22:06)
[2019-07-01] MEDS: LACTOBACILLUS ACIDOPHILUS 250 MG TAB PO SCH ×2 (09:56→18:26)
[2019-07-01] MEDS: GABAPENTIN 300 MG CAPSULE PO SCH ×2 (09:57→22:18)
[2019-07-01] MEDS: HEPARIN SOD (PORCINE) 5,000 UNIT/ML 1 ML VIAL SUBCUT SCH ×2 (09:58→22:21)
[2019-07-01] MEDS: CIPROFLOXACIN HCL 750 MG TABLET PO SCH ×2 (09:59→22:22)
[2019-07-01] MEDS: TIZANIDINE HCL 4 MG TABLET PO PRN ×2 (12:24→22:18)
--- NOTE | 2019-07-01 17:10 | PDOC PROGRESS REPORT ---
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 She presents with dull retrosternal chest pain which has been present since valve replacement has developed fever and some shortness of breath prompting evaluation emergency room where she is found to have sepsis with hypotension, tachycardia, leukocytosis of 19,000, hypo-natremia hypomagnesemia hypo-kalemia and thrombocytopenia. She started on IV vancomycin and Dr. Bowen hospitalist at [facility] is consulted. 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 Subsequent cultures did not grow. [facility] is currently on regional diversion and are subsequently unable to accept her for transfer. She is referred to the hospitalist for admission. 06/04/2019. No acute events overnight. 06/05/2017. No acute events overnight. Denies any fever, chills, nausea, vomiting, diarrhea, constipation or any urinary symptoms. 06/06/2019. No acute events overnight. Continues to complain of chronic right upper quadrant abdominal pain. Denies any fever, chills, nausea, vomiting, diarrhea, constipation or any urinary symptoms. Patient is p.o. tolerant, ambulatory, having normal bowel and bladder movements. 06/07/2019. No acute events overnight. Significant improvement of abdominal pain after having a large bowel movement this morning. Patient is ambulatory, in no apparent distress, p.o. tolerant. Patient has been noted to have low blood pressure however she is asymptomatic. 06/08/2019. No acute events overnight, patient is comfortably sitting in bed, in no apparent distress, abdominal pain has improved significantly, ambulatory, p. o. tolerant, having normal bowel bladder movement, denies any fever, chills, nausea, vomiting, diarrhea, constipation or any urinary symptoms. Patient hemoglobin is 7.7 today denies any hematemesis, hemoptysis, melena, vaginal bleeding or any hematochezia. Stool guaiac has been negative. We will give 2 PRBC today. 06/09/2019. No acute events overnight. Comfortably sitting in bed enjoying her breakfast. In no apparent distress. Abdominal pain has resolved, ambulatory, having normal bladder and bowel movement. Denies any fever, chills, nausea, vomiting, diarrhea, constipation or any urinary symptoms. 06/14/2019. No acute events overnight. Comfortably sitting in bed eating ice chips, no apparent distress, alert oriented x3, denies any abdominal pain, ambulatory, p.o. tolerant, having normal bowel and bladder movements, denies any fever, chills, nausea, vomiting, diarrhea, or any urinary symptoms. Discussed with patient about the need for PICC line to come out as it was placed on 05/22/2019 and has had several positive blood cultures since then. As per ID recommendation will remove PICC line. 06/15/2019. No acute events overnight. Comfortably sitting in bed enjoying her breakfast. Alert oriented x3, denies any fever, chills, nausea, vomiting, diarrhea, constipation or any urinary symptoms. PICC line removed on 06/14/2019. PICC line tip has been sent to culture. 06/16/2019. No acute events overnight. Comfortably sitting in bed enjoying her breakfast. Alert oriented x3, denies any fever, chills, nausea, vomiting, diarrhea, constipation or any urinary symptoms. 06/17/2018. No acute events overnight. Resting in bed. Complaining bed. Complaining of chronic back pain, alert oriented x3, denies any fever, chills, nausea, vomiting, diarrhea, constipation or any urinary symptoms. 06/18/2019. No acute events overnight. Comfortably sitting in bed, enjoying her breakfast, back pain has improved since being started on Percocet, denies any fever, chills, nausea, vomiting, diarrhea, constipation or any urinary symptoms. P.o. tolerant, ambulatory, having normal bowel bladder movement. 06/19/2019. No acute events overnight. Denies any fever, chills, nausea, v omiting, diarrhea, constipation or any urinary symptoms. P.o. tolerant, ambulatory, having normal bowel bladder movement. 06/20/2019. Complaining of having nightmares overnight, could not get a good night sleep, back pain is improving with tizanidine and Percocet, denies any fever, chills, nausea, shortness of breath, diarrhea or any constipation. P.o. tolerant, ambulatory having normal bladder and bowel movements. 06/21/2019. No acute events overnight. Denies any fever, chills, nausea, short ness of breath, diarrhea or any constipation. P.o. tolerant, ambulatory having normal bladder and bowel movements. 06/22/2019. No acute events overnight. Denies any fever, chills, nausea, shortness of breath, diarrhea or any constipation. P.o. tolerant, ambulatory having normal bladder and bowel movements. 06/23/2019. No acute events overnight, patient is sitting in bed, pleasant, enjoying her breakfast, lower back pain is improving, denies any ,nausea, vomiting, diarrhea, constipation or any urinary symptoms. Has been refusing her docusate, Cymbalta, pantoprazole and was seems to be discontinued as Cymbalta makes her very anxious. 07/01/2019. No acute events overnight, patient comfortably resting in bed in no apparent distress, still complaining of chronic back pain, was to be placed back on Percocet, tizanidine helping, denies any fever, chills, nausea, vomiting, diarrhea, constipation or any urinary symptoms. Reporting that her plantar fasciitis has totally resolved. Reason For Visit: IV DRUG ABUSE,SEPSIS,ENDOCARDITIS Physical Exam Vital Signs: Temp Pulse Resp BP Pulse Ox 97.9 F 83 18 111/70 100 07/01/19 16:07 07/01/19 16:07 07/01/19 16:07 07/01/19 16:07 07/01/19 16:07 Intake & Output 06/30/19 07/01/19 07/02/19 06:59 06:59 06:59 Intake Total 1350 1290 Output Total 0 Balance 1350 1290 Weight 80.9 kg 80.9 kg General appearance: PRESENT: no acute distress, well-developed, well-nourished Neck exam: PRESENT: full ROM. ABSENT: carotid bruit, JVD, lymphadenopathy, thyromegaly Respiratory exam: PRESENT: clear to auscultation sandrita, symmetrical Cardiovascular exam: PRESENT: RRR, systolic murmur. ABSENT: diastolic murmur, rubs GI/Abdominal exam: PRESENT: normal bowel sounds, soft. ABSENT: distended, guar ding, mass, organolmegaly, rebound, tenderness Neurological exam: PRESENT: alert, awake, oriented to person, oriented to place, oriented to time, oriented to situation, CN II-XII grossly intact. ABSENT: motor sensory deficit Results Laboratory Results: 06/29/19 04:35 06/29/19 04:35 05/21/19 05/22/19 05/22/19 23:07 02:06 11:00 Creatine Kinase CK-MB (CK-2) Troponin I 0.098 0.098 0.070 NT-Pro-B Natriuret Pep 05/22/19 05/22/19 05/22/19 14:00 14:35 20:04 Creatine Kinase CK-MB (CK-2) Troponin I Cancelled 0.060 0.037 NT-Pro-B Natriuret Pep 05/28/19 05/28/19 06/02/19 00:15 00:15 00:20 Creatine Kinase < 20 L < 20 L CK-MB (CK-2) 0.49 Troponin I 0.077 NT-Pro-B Natriuret Pep 06/02/19 06/02/19 06/02/19 00:20 06:15 06:15 Creatine Kinase < 20 L CK-MB (CK-2) 1.53 1.39 Troponin I 0.194 0.171 NT-Pro-B Natriuret Pep 06/02/19 06/02/19 06/28/19 13:30 13:30 03:40 Creatine Kinase < 20 L 26 L CK-MB (CK-2) 1.68 Troponin I 0.175 NT-Pro-B Natriuret Pep 4000 H Impressions: Chest X-Ray 05/21/19 23:04 IMPRESSION: 1. No acute pulmonary findings. 2. Previous sternotomy Abdomen Ultrasound 05/28/19 00:00 IMPRESSION: Mild splenomegaly. No acute findings otherwise. Abdomen/Pelvis CT 06/06/19 00:00 IMPRESSION: 1. Gastric distention and debris. Ileus. Constipation. 2. Normal appendix. No acute abdominopelvic abnormality. Guidance Fluoroscopy 06/23/19 00:00 IMPRESSION: SUCCESSFUL PLACEMENT OF A 5 FR DUAL LUMEN 38 CM PICC IN THE LEFT BASILIC VEIN. Interventional Vascular Procedure 06/23/19 00:00 IMPRESSION: SUCCESSFUL PLACEMENT OF A 5 FR DUAL LUMEN 38 CM PICC IN THE LEFT BASILIC VEIN. PICC Line Insertion 06/23/19 00:00 IMPRESSION: SUCCESSFUL PLACEMENT OF A 5 FR DUAL LUMEN 38 CM PICC IN THE LEFT BASILIC VEIN. Foot X-Ray 06/29/19 00:00 IMPRESSION: NEGATIVE STUDY OF THE LEFT FOOT. NO EXPLANATION FOR PAIN. Assessment & Plan - Diagnosis (1) Endocarditis Qualifiers: Endocarditis type: infective Is this a current diagnosis for this admission?: Yes Plan: 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 Status post tricuspid valve replacement September 2018 at [facility]. 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 Presented to ED with dull retrosternal chest pain which has been present since valve replacement. Was a started started on IV vancomycin by Dr. Bowen hospitalist at [facility]. 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 [facility] on regional diversion at the admission time and was admitted here at [facility]. 05/21/2019. TTE LVEF 60%. No thrombus or vegetations noted. Severe tricuspid regurgitation. RSVP 48 to 53 mmHg.05/27/2019 Started on empiric broad-spectrum IV antibiotics. PICC line placed on 05/22/2018 on the left basilic vein. PICC line removed 06/14/2019 as per ID recommendation. Please refer to note. Tip was cultured which came back negative. Multiple positive blood cultures for pseudomonas aeruginosa. Last negative blood culture 05/31/2019. Last negative blood culture 05/31/2019. Day 31 of 56 days. Expected completion date 07/30/2019. Day 33 IV cefepime. Day 21 Ciprofloxacin 750 mg p.o. twice daily. Day 39 IV antibiotics. Received 10 days of IV levofloxacin. Switch to ciprofloxacin IV as per ID recommendation. I have been informed that [facility] will be able to do SANJU starting early June. Patient has stable and receiving IV antibiotics SANJU can wait until early June if not will call [facility] again for transfer for SANJU. 06/09/2019. Infectious disease consulted. Recommendations noted. Please refer to note. Unfortunately patient has a drug abuse and could not be sent home on IV antibiotics. 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 Status post tricuspid valve replacement September 2018 at [facility]. Presented to ED with dull retrosternal chest pain which has been present since valve replacement. Was a started started on IV vancomycin by Dr. Bowen hospitalist at [facility]. 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 [facility] on regional diversion at the admission time and was admitted here at [facility]. 05/21/2019. TTE LVEF 60%. No thrombus or vegetations noted. Severe tricuspid regurgitation. RSVP 48 to 53 mmHg.05/27/2019 Started on empiric broad-spectrum IV antibiotics. PICC line placed on 05/22/2018 on the left basilic vein. PICC line removed on 06/14/2019 as per ID recommendation. PICC line tip sent to culture. Multiple positive blood cultures for pseudomonas aeruginosa. Last negative blood culture 05/31/2019. Plan as per #1 (3) IV drug abuse Is this a current diagnosis for this admission?: Yes Plan: Persistent IV drug abuse. Unfortunately patient seems to be abusing drugs while in the hospital. At times patient seems to be too sleepy. UDS on 06/08/2019 for back positive for opiates. Which was confirmed as morphine. Only on Subutex and tramadol in the hospital. Patient was advised on abstinence from recreational drug abuse. Currently on on Subutex since 05/27/2019 and tramadol. Was encouraged to rehab admission one day before discharge. (4) Anemia Qualifiers: Anemia type: iron deficiency Iron deficiency anemia type: unspecified iron deficiency Qualified Code(s): D50.9 - Iron deficiency anemia, unspecified Is this a current diagnosis for this admission?: Yes Plan: Microcytic. Likely combination of anemia of chronic disease and iron deficiency anemia. Denies any easy bleeding, nosebleeds, hematemesis, hemoptysis, hematochezia, vaginal bleeding or melena. 05/30/2019. Iron panel. Serum iron 18.8, TIBC 270, saturation 7%, ferritin 213, folate 5.53, B12 folate 306, 06/08/2019. Status post 2 PRBC transfusion. Daily H&H, monitor for bleeding, supportive transfusions, ferrous sulfate. - Time Time Spent with patient: 25-34 minutes
[2019-07-01] MEDS: ATORVASTATIN CALCIUM 40 MG TABLET PO SCH (22:18)
[2019-07-01] MEDS: QUETIAPINE FUMARATE 25 MG TABLET PO SCH (22:18)
[2019-07-01] MEDS ORDERED: CIPROFLOXACIN HCL 750 MG TABLET ONE (22:18)
[2019-07-02] MEDS: PROMETHAZINE HCL 25 MG TABLET PO PRN ×4 (01:34→21:12)
[2019-07-02] MEDS: KETOROLAC TROMETHAMINE INJ/PF 30 MG/1 ML SDV IV PRN ×4 (01:34→21:48)
[2019-07-02] MEDS: CEFEPIME 2 GM/D5W RTU 2 GM/50 ML RTUPB IV SCH ×3 (01:34→18:04)
[2019-07-02] MEDS: PANTOPRAZOLE SODIUM 40 MG TABLET.DR PO SCH (05:49)
[2019-07-02] MEDS: FERROUS SULFATE 325 MG TABLET PO SCH (07:43)
[2019-07-02] MEDS: BUPRENORPHINE HCL 2 MG SUBLINGUAL TABLET SL SCH ×2 (09:40→21:12)
[2019-07-02] MEDS: METOPROLOL TARTRATE 25 MG TABLET PO SCH ×2 (09:41→21:13)
[2019-07-02] MEDS: GABAPENTIN 300 MG CAPSULE PO SCH ×2 (09:41→21:12)
[2019-07-02] MEDS: LACTOBACILLUS ACIDOPHILUS 250 MG TAB PO SCH ×2 (09:41→18:05)
[2019-07-02] MEDS: LISINOPRIL 5 MG TABLET PO SCH (09:41)
[2019-07-02] MEDS: HEPARIN SOD (PORCINE) 5,000 UNIT/ML 1 ML VIAL SUBCUT SCH ×2 (09:42→21:11)
--- NOTE | 2019-07-02 09:42 | PDOC PROGRESS REPORT ---
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 She presents with dull retrosternal chest pain which has been present since valve replacement has developed fever and some shortness of breath prompting evaluation emergency room where she is found to have sepsis with hypotension, tachycardia, leukocytosis of 19,000, hypo-natremia hypomagnesemia hypo-kalemia and thrombocytopenia. She started on IV vancomycin and Dr. Bowen hospitalist at [facility] is consulted. 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 Subsequent cultures did not grow. [facility] is currently on regional diversion and are subsequently unable to accept her for transfer. She is referred to the hospitalist for admission. 06/04/2019. No acute events overnight. 06/05/2017. No acute events overnight. Denies any fever, chills, nausea, vomiting, diarrhea, constipation or any urinary symptoms. 06/06/2019. No acute events overnight. Continues to complain of chronic right upper quadrant abdominal pain. Denies any fever, chills, nausea, vomiting, diarrhea, constipation or any urinary symptoms. Patient is p.o. tolerant, ambulatory, having normal bowel and bladder movements. 06/07/2019. No acute events overnight. Significant improvement of abdominal pain after having a large bowel movement this morning. Patient is ambulatory, in no apparent distress, p.o. tolerant. Patient has been noted to have low blood pressure however she is asymptomatic. 06/08/2019. No acute events overnight, patient is comfortably sitting in bed, in no apparent distress, abdominal pain has improved significantly, ambulatory, p.o. tolerant, having normal bowel bladder movement, denies any fever, chills, nausea, vomiting, diarrhea, constipation or any urinary symptoms. Patient hemoglobin is 7.7 today denies any hematemesis, hemoptysis, melena, vaginal bleeding or any hematochezia. Stool guaiac has been negative. We will give 2 PRBC today. 06/09/2019. No acute events overnight. Comfortably sitting in bed enjoying her breakfast. In no apparent distress. Abdominal pain has resolved, ambulatory, having normal bladder and bowel movement. Denies any fever, chills, nausea, vomiting, diarrhea, constipation or any urinary symptoms. 06/14/2019. No acute events overnight. Comfortably sitting in bed eating ice chips, no apparent distress, alert oriented x3, denies any abdominal pain, ambul atory, p.o. tolerant, having normal bowel and bladder movements, denies any fever, chills, nausea, vomiting, diarrhea, or any urinary symptoms. Discussed with patient about the need for PICC line to come out as it was placed on 05/22/2019 and has had several positive blood cultures since then. As per ID recommendation will remove PICC line. 06/15/2019. No acute events overnight. Comfortably sitting in bed enjoying her breakfast. Alert oriented x3, denies any fever, chills, nausea, vomiting, diarrhea, constipation or any urinary symptoms. PICC line removed on 06/14/2019. PICC line tip has been sent to culture. 06/16/2019. No acute events overnight. Comfortably sitting in bed enjoying her breakfast. Alert oriented x3, denies any fever, chills, nausea, vomiting, diarrhea, constipation or any urinary symptoms. 06/17/2018. No acute events overnight. Resting in bed. Complaining bed. Complaining of chronic back pain, alert oriented x3, denies any fever, chills, nausea, vomiting, diarrhea, constipation or any urinary symptoms. 06/18/2019. No acute events overnight. Comfortably sitting in bed, enjoying her breakfast, back pain has improved since being started on Percocet, denies any fever, chills, nausea, vomiting, diarrhea, constipation or any urinary symptoms. P.o. tolerant, ambulatory, having normal bowel bladder movement. 06/19/2019. No acute events overnight. Denies any fever, chills, nausea, vomiting, diarrhea, constipation or any urinary symptoms. P.o. tolerant, ambulatory, having normal bowel bladder movement. 06/20/2019. Complaining of having nightmares overnight, could not get a good night sleep, back pain is improving with tizanidine and Percocet, denies any fever, chills, nausea, shortness of breath, diarrhea or any constipation. P.o. tolerant, ambulatory having normal bladder and bowel movements. 06/21/2019. No acute events overnight. Denies any fever, chills, nausea, shortness of breath, diarrhea or any constipation. P.o. tolerant, ambulatory having normal bladder and bowel movements. 06/22/2019. No acute events overnight. Denies any fever, chills, nausea, shortness of breath, diarrhea or any constipation. P.o. tolerant, ambulatory having normal bladder and bowel movements. 06/23/2019. No acute events overnight, patient is sitting in bed, pleasant, enjoying her breakfast, lower back pain is improving, denies any ,nausea, vomiting, diarrhea, constipation or any urinary symptoms. Has been refusing her docusate, Cymbalta, pantoprazole and was seems to be discontinued as Cymbalta makes her very anxious. 06/24/2019-no acute events in the last 24 hours. Afebrile. Patient is comfortable in the bed talking to the family members on the phone. 06/25/2019-response was called last night patient found to be shivering associated with chills. Blood pressure was extremely elevated. Patient was given Motrin and repeat blood cultures was done. Patient stable this morning. To closely monitor her medical condition plan is to move her from medical floor to IMCU today. Patient denies any complaints. Alert and awake communicating well. 07/01/2019. No acute events overnight, patient comfortably resting in bed in no apparent distress, still complaining of chronic back pain, was to be placed back on Percocet, tizanidine helping, denies any fever, chills, nausea, vomiting, diarrhea, constipation or any urinary symptoms. Reporting that her plantar fasciitis has totally resolved. 07/02/2019-no acute events in the last 24 hours. Afebrile. She is scheduled for SANJU after the of this month at this facility. Meantime will continue the antibiotic therapy until August 02 as per ID. Latest blood cultures are negative. Reason For Visit: IV DRUG ABUSE,SEPSIS,ENDOCARDITIS Physical Exam Vital Signs: Temp Pulse Resp BP Pulse Ox 97.4 F 78 18 107/84 100 07/02/19 08:42 07/02/19 08:42 07/02/19 08:42 07/02/19 08:42 07/02/19 08:42 Intake & Output 07/01/19 07/02/19 07/03/19 06:59 06:59 06:59 Intake Total 1290 100 Balance 1290 100 Weight 80.9 kg 80.9 kg General appearance: PRESENT: no acute distress, cooperative Head exam: PRESENT: atraumatic Eye exam: PRESENT: PERRLA Mouth exam: PRESENT: moist, tongue midline Teeth exam: PRESENT: poor dentation Neck exam: ABSENT: carotid bruit, JVD, lymphadenopathy, thyromegaly Respiratory exam: PRESENT: decreased breath sounds Cardiovascular exam: PRESENT: RRR, systolic murmur. ABSENT: diastolic murmur, rubs GI/Abdominal exam: PRESENT: normal bowel sounds, soft. ABSENT: distended, guarding, mass, organolmegaly, rebound, tenderness Rectal exam: PRESENT: deferred Extremities exam: PRESENT: full ROM. ABSENT: calf tenderness, clubbing, pedal edema Neurological exam: PRESENT: alert, awake, oriented to person, oriented to place, oriented to time, oriented to situation, CN II-XII grossly intact. ABSENT: motor sensory deficit Psychiatric exam: PRESENT: appropriate affect, normal mood. ABSENT: homicidal ideation, suicidal ideation Results Laboratory Results: 06/29/19 04:35 06/29/19 04:35 05/21/19 05/22/19 05/22/19 23:07 02:06 11:00 Creatine Kinase CK-MB (CK-2) Troponin I 0.098 0.098 0.070 NT-Pro-B Natriuret Pep 05/22/19 05/22/19 05/22/19 14:00 14:35 20:04 Creatine Kinase CK-MB (CK-2) Troponin I Cancelled 0.060 0.037 NT-Pro-B Natriuret Pep 05/28/19 05/28/19 06/02/19 00:15 00:15 00:20 Creatine Kinase < 20 L < 20 L CK-MB (CK-2) 0.49 Troponin I 0.077 NT-Pro-B Natriuret Pep 06/02/19 06/02/19 06/02/19 00:20 06:15 06:15 Creatine Kinase < 20 L CK-MB (CK-2) 1.53 1.39 Troponin I 0.194 0.171 NT-Pro-B Natriuret Pep 06/02/19 06/02/19 06/28/19 13:30 13:30 03:40 Creatine Kinase < 20 L 26 L CK-MB (CK-2) 1.68 Troponin I 0.175 NT-Pro-B Natriuret Pep 4000 H Impressions: Chest X-Ray 05/21/19 23:04 IMPRESSION: 1. No acute pulmonary findings. 2. Previous sternotomy Abdomen Ultrasound 05/28/19 00:00 IMPRESSION: Mild splenomegaly. No acute findings otherwise. Abdomen/Pelvis CT 06/06/19 00:00 IMPRESSION: 1. Gastric distention and debris. Ileus. Constipation. 2. Normal appendix. No acute abdominopelvic abnormality. Guidance Fluoroscopy 06/23/19 00:00 IMPRESSION: SUCCESSFUL PLACEMENT OF A 5 FR DUAL LUMEN 38 CM PICC IN THE LEFT BASILIC VEIN. Interventional Vascular Procedure 06/23/19 00:00 IMPRESSION: SUCCESSFUL PLACEMENT OF A 5 FR DUAL LUMEN 38 CM PICC IN THE LEFT BASILIC VEIN. PICC Line Insertion 06/23/19 00:00 IMPRESSION: SUCCESSFUL PLACEMENT OF A 5 FR DUAL LUMEN 38 CM PICC IN THE LEFT BASILIC VEIN. Foot X-Ray 06/29/19 00:00 IMPRESSION: NEGATIVE STUDY OF THE LEFT FOOT. NO EXPLANATION FOR PAIN. Assessment and Plan - Diagnosis (1) Endocarditis Qualifiers: Endocarditis type: infective Is this a current diagnosis for this admission?: Yes (2) Bacteremia due to Pseudomonas Is this a current diagnosis for this admission?: Yes (3) IV drug abuse Is this a current diagnosis for this admission?: Yes (4) Abdominal pain Qualifiers: Abdominal location: generalized Qualified Code(s): R10.84 - Generalized abdominal pain Is this a current diagnosis for this admission?: Yes (5) Anemia Qualifiers: Anemia type: iron deficiency Iron deficiency anemia type: unspecified iron deficiency Qualified Code(s): D50.9 - Iron deficiency anemia, unspecified Is this a current diagnosis for this admission?: Yes - Plan Summary Summary: (1) Endocarditis Qualifiers: Endocarditis type: infective Is this a current diagnosis for this admission?: Yes Plan: 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 Status post tricuspid valve replacement September 2018 at [facility] ([place] 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 Presented to ED with dull retrosternal chest pain which has been present since valve replacement. Was a started started on IV vancomycin by Dr. Bowen hospitalist at [facility]. 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 [facility] on regional diversion at the admission time and was admitted here at [facility]. 05/21/2019. TTE LVEF 60%. No thrombus or vegetations noted. Severe tricuspid regurgitation. RSVP 48 to 53 mmHg.05/27/2019 Started on empiric broad-spectrum IV antibiotics. PICC line placed on 05/22/2018 on the left basilic vein. PICC line removed 06/14/2019 as per ID recommendation. Please refer to note. Tip was cultured which came back negative. Multiple positive blood cultures for pseudomonas aeruginosa. Last negative blood culture 05/31/2019 Last negative blood culture 05/31/2019. Day 23 of 56 days. Expected completion date 07/30/2019. Day 25 IV cefepime. Day 13 Ciprofloxacin 750 mg p.o. twice daily. Day 31 IV antibiotics. Received 10 days of IV levofloxacin. Switch to ciprofloxacin IV as per ID recommendation. I have been informed that [facility] will be able to do SANJU starting early June. Patient has stable and receiving IV antibiotics SANJU can wait until early June if not will call [facility] for transfer for SANJU. 06/09/2019. Infectious disease consulted. Recommendations noted. Please refer to note. Unfortunately patient has a drug abuse and could not be sent home on IV antibiot ics. 06/24/2019-patient has endocarditis not a candidate to go home with an IV antibiotic therapy. Patient may need a SANJU this week. pt is presently on IV cefepime. 06/25/2019-patient has history of endocarditis secondary to percent 10 to use of IV drug abuse. Admitted with fever and chills. Blood cultures came back positive for pseudomonas aeruginosa latest blood cultures are negative. Patient is presently on cefepime and p.o. ciprofloxacin. Plan is to arrange for SANJU after 01 July at this hospital. Last night patient has no fever but Reiger's and chills. To closely monitor her medical condition plan is to move her to [facility] today. 06/26/2019-unfortunately the SANJU service is not available yet. The patient will continue her antibiotic therapy. She will need 6 weeks from the first set of blood cultures that were no growth. 06/27/2019-no changes to the treatment plan. 06/28/2019-she is complaining of plantar fasciitis. Achilles tendons are nontender and appear intact. Will monitor while on quinolone therapy. 06/29/2019-no change in therapy at this time. Expected end date July 30. 07/02/2019-patient is admitted with endocarditis now the plan is to arrange for SANJU after 09 July here at [facility]. In the meantime plan is to continue IV antibiotic therapy. Sedated 32 of IV antibiotic therapy patient is presently on IV cefepime and Cipro floxacillin 750 mg p.o. twice a day. 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 Status post tricuspid valve replacement September 2018 at [facility] ([place] Presented to ED with dull retrosternal chest pain which has been present since valve replacement. Was a started started on IV vancomycin by Dr. Bowen hospitalist at [facility]. 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 [facility] on regional diversion at the admission time and was admitted here at [facility]. 05/21/2019. TTE LVEF 60%. No thrombus or vegetations noted. Severe tricuspid regurgitation. RSVP 48 to 53 mmHg.05/27/2019 Started on empiric broad-spectrum IV antibiotics. PICC line placed on 05/22/2018 on the left basilic vein. PICC line removed on 06/14/2019 as per ID recommendation. PICC line tip sent to culture. Multiple positive blood cultures for pseudomonas aeruginosa. Last negative blood culture 05/31/2019. Plan as per #1 06/24/2019-blood cultures came back positive for Pseudomonas aeruginosa on 05 29. Latest blood cultures are negative. As per ID recommendations PICC line was removed on . As listed above latest cultures are negative. Plan is to continue the present management. 06/25/2019-blood cultures from 05/29/2019 came back positive for Pseudomonas aeruginosa as per ID recommendations patient is on p.o. Cipro floxacillin and IV cephapirin. Waiting for a SANJU procedure after 01 July. Cultures are negative. Latest 06/26/2019-multiple repeated blood cultures are negative. Continue current treatment regimen. 06/29/2019-as above 07/02/2019-latest blood cultures from 06/25/2019 are negative. (3) IV drug abuse Is this a current diagnosis for this admission?: Yes Plan: Persistent IV drug abuse. Unfortunately patient seems to be abusing drugs while in the hospital. At times patient seems to be too sleepy. UDS on 06/08/2019 for back positive for opiates. Which was confirmed as morphine. Only on Subutex and tramadol in the hospital. Patient was advised on abstinence from recreational drug abuse. Currently on on Subutex since 05/27/2019 and tramadol. Was encouraged to rehab admission one day before discharge. 06/24/2019-patient has history of IV drug abuse. Counseling was provided today. 06/26/2019-continue Suboxone 06/29/2019-suspected self injection last night. Patient reports tachycardia was from using vape. Had a long discussion about compliance with hospital rules and treatment regimen. 07/02/2019-no complaints of any pains today. She is receiving Subutex and tramadol in the hospital. (4) Abdominal pain Qualifiers: Abdominal location: generalized Qualified Code(s): R10.84 - Generalized abdominal pain Is this a current diagnosis for this admission?: Yes Plan: Resolved. CT abdomen pelvis 06/06/2019 found no acute findings except for severe constipation. History of cholecystectomy. History of hepatitis C. History of hepatic steatosis. Lipase WNL. Continue beta-blockers and supportive measures. Continue bowel regimen. Encourage ambulation and high-fiber diet. 06/24/2019-patient came with complaints of abdominal pain. Which was resolved. Lipase levels are within normal limits. 06/26/2019-the patient does have history of hepatitis C. Since the rapid response 2 nights ago the patient exhibits increased LFTs. She does have a history of hepatitis C. I will recheck the liver enzymes and if they continue to increase I will obtain imaging of the abdomen. 06/27/2019-we discussed the elevated liver enzymes. She cannot remember when her last evaluation for hepatitis C was. I will check a hep C RNA level. We will continue to monitor the chemistries. 06/28/2019-liver enzymes are slowly improving. Unsure of the spike. Could be related to long-term antibiotics. We will continue to monitor. 07/02/19-patient has history of cholecystectomy, history of hepatitis C, history of hepatic steatosis lipase levels are within normal limits recently no complaints of abdominal pains. (5) Anemia Qualifiers: Anemia type: iron deficiency Iron deficiency anemia type: unspecified iron deficiency Qualified Code(s): D50.9 - Iron deficiency anemia, unspecified Is this a current diagnosis for this admission?: Yes Plan: Microcytic. Likely combination of anemia of chronic disease and iron deficiency anemia. Denies any easy bleeding, nosebleeds, hematemesis, hemoptysis, hematochezia, vaginal bleeding or melena. 05/30/2019. Iron panel. Serum iron 18.8, TIBC 270, saturation 7%, ferritin 213, folate 5.53, B12 folate 306, 06/08/2019. Status post 2 PRBC transfusion. Daily H&H, monitor for bleeding, supportive transfusions, ferrous sulfate. 06/24/2019-patient received 2 units of PRBC. During the hospital stay. Latest hemoglobin is 11.4. Stable. 06/25/2019-patient received 2 units of PRBC during the hospital stay latest h emoglobin is 11.4 plan is to closely trend the hemoglobin on daily basis. 06/26/2019-continue to monitor hemoglobin. 07/02/2019-patient's low latest hemoglobin is 10.3 stable. #6 ) plantar fasciitis-the patient developed tenderness under the arch of the left foot. I had physical therapy see the patient. They believe it is plantar fasciitis. She is on quinolone therapy long-term. This can have an adverse effect on tendons. We will continue to monitor. Physical therapy provided exercise plan for the patient. 06/29/2019-patient reports increased pain. I have added IV Toradol as an anti-in flammatory and physical therapy is working with her. 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 This puts the stop date at approximately July 14. She should still have a SANJU once that service is finally organized and offered. Anemia-continue iron supplement Drug abuse-continue Subutex Neuropathy-continue Neurontin Plantar fasciitis-she is working with physical therapy. Toradol is available. Consider wrapping her foot for support. Pain management-avoid narcotics completely
[2019-07-02] MEDS: CIPROFLOXACIN HCL 750 MG TABLET PO SCH ×2 (09:43→21:13)
[2019-07-02] MEDS: TIZANIDINE HCL 4 MG TABLET PO PRN ×2 (09:44→21:12)
[2019-07-02] MEDS: NORMAL SALINE 10 ML SDV (SCHEDULED) IV SCH ×2 (09:54→21:14)
[2019-07-02 16:29] LABS: ABSOLUTE EOSINOPHILS # (AUTO) 0.3 10^3/uL (0.0-0.6); ABSOLUTE LYMPHOCYTES (AUTO) 1.8 10^3/uL (0.5-4.7); ABSOLUTE MONOCYTES (AUTO) 0.8 10^3/uL (0.1-1.4); BASOPHILS % (AUTO) 0.5 % (0-2); EOSINOPHILS % (AUTO) 3.3 % (0-6); HEMATOCRIT 32.1 % (36.0-47.0); HEMOGLOBIN 10.4 g/dL (12.0-15.5); LYMPHOCYTES % (AUTO) 22.3 % (13-45); MEAN CORPUSCULAR HGB CONC 32.5 g/dL (32.0-36.0); MEAN CORPUSCULAR VOLUME 83 fl (80-97); MONOCYTES % (AUTO) 9.8 % (3-13); PLATELET COUNT 242 10^3/uL (150-450); RED BLOOD COUNT 3.87 10^6/uL (3.72-5.28); RED CELL DISTRIBUTION WIDTH 17.6 % (11.5-14.0); SEGMENTED NEUTROPHILS % (AUTO) 64.1 % (42-78); TOTAL CELLS COUNTED % (AUTO) 100 %; WHITE BLOOD COUNT 7.8 10^3/uL (4.0-10.5)
[2019-07-02 16:52] LABS: ALBUMIN 3.2 g/dL (3.5-5.0); ALKALINE PHOSPHATASE 248 U/L (38-126); ANION GAP 8 (5-19); ASPARTATE AMINO TRANSFERASE 322 U/L (14-36); BILIRUBIN,DIRECT 0.3 mg/dL (0.0-0.4); BILIRUBIN,TOTAL 0.5 mg/dL (0.2-1.3); BLOOD UREA NITROGEN 33 mg/dL (7-20); CALCIUM 8.9 mg/dL (8.4-10.2); CARBON DIOXIDE 23 mmol/L (22-30); CHLORIDE 107 mmol/L (98-107); GLUCOSE 96 mg/dL (75-110); POTASSIUM 5.5 mmol/L (3.6-5.0); TOTAL PROTEIN 6.8 g/dL (6.3-8.2)
[2019-07-02] MEDS: ATORVASTATIN CALCIUM 40 MG TABLET PO SCH (21:12)
[2019-07-02] MEDS: QUETIAPINE FUMARATE 25 MG TABLET PO SCH (21:13)
[2019-07-03] MEDS: CEFEPIME 2 GM/D5W RTU 2 GM/50 ML RTUPB IV SCH ×3 (01:06→17:24)
[2019-07-03] MEDS: PANTOPRAZOLE SODIUM 40 MG TABLET.DR PO SCH (05:15)
[2019-07-03] MEDS ORDERED: SODIUM POLYSTYRENE SULFONATE 15 GM/60 ML PO ONE (06:54)
--- NOTE | 2019-07-03 08:52 | PDOC PROGRESS REPORT ---
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 She presents with dull retrosternal chest pain which has been present since valve replacement has developed fever and some shortness of breath prompting evaluation emergency room where she is found to have sepsis with hypotension, tachycardia, leukocytosis of 19,000, hypo-natremia hypomagnesemia hypo-kalemia and thrombocytopenia. She started on IV vancomycin and Dr. Bowen hospitalist at [facility] is consulted. 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 Subsequent cultures did not grow. [facility] is currently on regional diversion and are subsequently unable to accept her for transfer. She is referred to the hospitalist for admission. 06/04/2019. No acute events overnight. 06/05/2017. No acute events overnight. Denies any fever, chills, nausea, v omiting, diarrhea, constipation or any urinary symptoms. 06/06/2019. No acute events overnight. Continues to complain of chronic right upper quadrant abdominal pain. Denies any fever, chills, nausea, vomiting, diarrhea, constipation or any urinary symptoms. Patient is p.o. tolerant, ambulatory, having normal bowel and bladder movements. 06/07/2019. No acute events overnight. Significant improvement of abdominal pain after having a large bowel movement this morning. Patient is ambulatory, in no apparent distress, p.o. tolerant. Patient has been noted to have low blood pressure however she is asymptomatic. 06/08/2019. No acute events overnight, patient is comfortably sitting in bed, in no apparent distress, abdominal pain has improved significantly, ambulatory, p.o. tolerant, having normal bowel bladder movement, denies any fever, chills, nausea, vomiting, diarrhea, constipation or any urinary symptoms. Patient hemoglobin is 7.7 today denies any hematemesis, hemoptysis, melena, vaginal bleeding or any hematochezia. Stool guaiac has been negative. We will give 2 PRBC today. 06/09/2019. No acute events overnight. Comfortably sitting in bed enjoying her breakfast. In no apparent distress. Abdominal pain has resolved, ambulatory, having normal bladder and bowel movement. Denies any fever, chills, nausea, vomiting, diarrhea, constipation or any urinary symptoms. 06/14/2019. No acute events overnight. Comfortably sitting in bed eating ice chips, no apparent distress, alert oriented x3, denies any abdominal pain, ambulatory, p.o. tolerant, having normal bowel and bladder movements, denies any fever, chills, nausea, vomiting, diarrhea, or any urinary symptoms. Discussed with patient about the need for PICC line to come out as it was placed on 05/22/2019 and has had several positive blood cultures since then. As per ID recommendation will remove PICC line. 06/15/2019. No acute events overnight. Comfortably sitting in bed enjoying her breakfast. Alert oriented x3, denies any fever, chills, nausea, vomiting, diarrhea, constipation or any urinary symptoms. PICC line removed on 06/14/2019. PICC line tip has been sent to culture. 06/16/2019. No acute events overnight. Comfortably sitting in bed enjoying her breakfast. Alert oriented x3, denies any fever, chills, nausea, vomiting, diarrhea, constipation or any urinary symptoms. 06/17/2018. No acute events overnight. Resting in bed. Complaining bed. Complaining of chronic back pain, alert oriented x3, denies any fever, chills, nausea, vomiting, diarrhea, constipation or any urinary symptoms. 06/18/2019. No acute events overnight. Comfortably sitting in bed, enjoying her breakfast, back pain has improved since being started on Percocet, denies any fever, chills, nausea, vomiting, diarrhea, constipation or any urinary symptoms. P.o. tolerant, ambulatory, having normal bowel bladder movement. 06/19/2019. No acute events overnight. Denies any fever, chills, nausea, vomiting, diarrhea, constipation or any urinary symptoms. P.o. tolerant, ambulatory, having normal bowel bladder movement. 06/20/2019. Complaining of having nightmares overnight, could not get a good night sleep, back pain is improving with tizanidine and Percocet, denies any fever, chills, nausea, shortness of breath, diarrhea or any constipation. P.o. tolerant, ambulatory having normal bladder and bowel movements. 06/21/2019. No acute events overnight. Denies any fever, chills, nausea, shortness of breath, diarrhea or any constipation. P.o. tolerant, ambulatory having normal bladder and bowel movements. 06/22/2019. No acute events overnight. Denies any fever, chills, nausea, shortness of breath, diarrhea or any constipation. P.o. tolerant, ambulatory having normal bladder and bowel movements. 06/23/2019. No acute events overnight, patient is sitting in bed, pleasant, enjoying her breakfast, lower back pain is improving, denies any ,nausea, vomiting, diarrhea, constipation or any urinary symptoms. Has been refusing her docusate, Cymbalta, pantoprazole and was seems to be discontinued as Cymbalta makes her very anxious. 06/24/2019-no acute events in the last 24 hours. Afebrile. Patient is com fortable in the bed talking to the family members on the phone. 06/25/2019-response was called last night patient found to be shivering associated with chills. Blood pressure was extremely elevated. Patient was given Motrin and repeat blood cultures was done. Patient stable this morning. To closely monitor her medical condition plan is to move her from medical floor to IMCU today. Patient denies any complaints. Alert and awake communicating well. 07/01/2019. No acute events overnight, patient comfortably resting in bed in no apparent distress, still complaining of chronic back pain, was to be placed back on Percocet, tizanidine helping, denies any fever, chills, nausea, vomiting, diarrhea, constipation or any urinary symptoms. Reporting that her plantar fasciitis has totally resolved. 07/02/2019-no acute events in the last 24 hours. Afebrile. She is scheduled for SANJU after the of this month at this facility. Meantime will continue the antibiotic therapy until August 02 as per ID. Latest blood cultures are negative. 07/03/2019-no acute events in the last 24 hours. Patient is afebrile. Serum potassium came back 5.5 plan to give Kayexalate with the patient is refusing. Reason For Visit: IV DRUG ABUSE,SEPSIS,ENDOCARDITIS Physical Exam Vital Signs: Temp Pulse Resp BP Pulse Ox 97.9 F 72 16 104/57 L 100 07/03/19 00:25 07/03/19 07:00 07/03/19 00:25 07/03/19 00:25 07/03/19 00:25 Intake & Output 07/02/19 07/03/19 07/04/19 06:59 06:59 06:59 Intake Total 150 480 Balance 150 480 Weight 80.9 kg 92.9 kg General appearance: PRESENT: no acute distress, obese Head exam: PRESENT: atraumatic Eye exam: PRESENT: PERRLA Mouth exam: PRESENT: moist, neck supple, tongue midline Teeth exam: PRESENT: poor dentation Neck exam: ABSENT: carotid bruit, JVD, lymphadenopathy, thyromegaly Respiratory exam: PRESENT: decreased breath sounds Cardiovascular exam: PRESENT: RRR. ABSENT: diastolic murmur, rubs, systolic murmur GI/Abdominal exam: PRESENT: normal bowel sounds, soft. ABSENT: distended, guarding, mass, organolmegaly, rebound, tenderness Rectal exam: PRESENT: deferred Extremities exam: PRESENT: full ROM. ABSENT: calf tenderness, clubbing, pedal edema Neurological exam: PRESENT: alert, awake, oriented to person, oriented to place, oriented to time, oriented to situation, CN II-XII grossly intact. ABSENT: motor sensory deficit Psychiatric exam: PRESENT: appropriate affect, normal mood. ABSENT: homicidal ideation, suicidal ideation Results Laboratory Results: 07/02/19 16:20 07/02/19 16:20 07/02/19 07/02/19 16:20 16:20 WBC 7.8 RBC 3.87 Hgb 10.4 L Hct 32.1 L MCV 83 MCH 27.0 MCHC 32.5 RDW 17.6 H Plt Count 242 Seg Neutrophils % 64.1 Sodium 137.6 Potassium 5.5 H Chloride 107 Carbon Dioxide 23 Anion Gap 8 BUN 33 H Creatinine 0.96 Est GFR ( Amer) > 60 Glucose 96 Calcium 8.9 Magnesium 1.6 Total Bilirubin 0.5 AST 322 H Alkaline Phosphatase 248 H Total Protein 6.8 Albumin 3.2 L 05/21/19 05/22/19 05/22/19 23:07 02:06 11:00 Creatine Kinase CK-MB (CK-2) Troponin I 0.098 0.098 0.070 NT-Pro-B Natriuret Pep 05/22/19 05/22/19 05/22/19 14:00 14:35 20:04 Creatine Kinase CK-MB (CK-2) Troponin I Cancelled 0.060 0.037 NT-Pro-B Natriuret Pep 05/28/19 05/28/19 06/02/19 00:15 00:15 00:20 Creatine Kinase < 20 L < 20 L CK-MB (CK-2) 0.49 Troponin I 0.077 NT-Pro-B Natriuret Pep 06/02/19 06/02/19 06/02/19 00:20 06:15 06:15 Creatine Kinase < 20 L CK-MB (CK-2) 1.53 1.39 Troponin I 0.194 0.171 NT-Pro-B Natriuret Pep 06/02/19 06/02/19 06/28/19 13:30 13:30 03:40 Creatine Kinase < 20 L 26 L CK-MB (CK-2) 1.68 Troponin I 0.175 NT-Pro-B Natriuret Pep 4000 H Impressions: Chest X-Ray 05/21/19 23:04 IMPRESSION: 1. No acute pulmonary findings. 2. Previous sternotomy Abdomen Ultrasound 05/28/19 00:00 IMPRESSION: Mild splenomegaly. No acute findings otherwise. Abdomen/Pelvis CT 06/06/19 00:00 IMPRESSION: 1. Gastric distention and debris. Ileus. Constipation. 2. Normal appendix. No acute abdominopelvic abnormality. Guidance Fluoroscopy 06/23/19 00:00 IMPRESSION: SUCCESSFUL PLACEMENT OF A 5 FR DUAL LUMEN 38 CM PICC IN THE LEFT BASILIC VEIN. Interventional Vascular Procedure 06/23/19 00:00 IMPRESSION: SUCCESSFUL PLACEMENT OF A 5 FR DUAL LUMEN 38 CM PICC IN THE LEFT BASILIC VEIN. PICC Line Insertion 06/23/19 00:00 IMPRESSION: SUCCESSFUL PLACEMENT OF A 5 FR DUAL LUMEN 38 CM PICC IN THE LEFT BASILIC VEIN. Foot X-Ray 06/29/19 00:00 IMPRESSION: NEGATIVE STUDY OF THE LEFT FOOT. NO EXPLANATION FOR PAIN. Assessment and Plan - Diagnosis (1) Endocarditis Qualifiers: Endocarditis type: infective Is this a current diagnosis for this admission?: Yes Plan: 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 Presented to ED with dull retrosternal chest pain which has been present since valve replacement. Was a started started on IV vancomycin by Dr. Bowen hospitalist at [facility]. 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 [facility] on regional diversion at the admission time and was admitted here at [facility]. 05/21/2019. TTE LVEF 60%. No thrombus or vegetations noted. Severe tricuspid regurgitation. RSVP 48 to 53 mmHg.05/27/2019 Started on empiric broad-spectrum IV antibiotics. PICC line placed on 05/22/2018 on the left basilic vein. PICC line removed 06/14/2019 as per ID recommendation. Please refer to note. Tip was cultured which came back negative. Multiple positive blood cultures for pseudomonas aeruginosa. Last negative blood culture 05/31/2019. Last negative blood culture 05/31/2019. Day 23 of 56 days. Expected completion date 07/30/2019. Day 25 IV cefepime. Day 13 Ciprofloxacin 750 mg p.o. twice daily. Day 31 IV antibiotics. Received 10 days of IV levofloxacin. Switch to ciprofloxacin IV as per ID recommendation. I have been informed that [facility] will be able to do SANJU starting early June. Patient has stable and receiving IV antibiotics SANJU can wait until early June if not [facility]JU. 06/09/2019. Infectious disease consulted. Recommendations noted. Please refer to note. Unfortunately patient has a drug abuse and could not be sent home on IV antibiotics. 06/24/2019-patient has endocarditis not a candidate to go home with an IV antibiotic therapy. Patient may need a SANJU this week. pt is presently on IV cefepime. (2) Bacteremia due to Pseudomonas Is this a current diagnosis for this admission?: Yes (3) IV drug abuse Is this a current diagnosis for this admission?: Yes (4) Abdominal pain Qualifiers: Abdominal location: generalized Qualified Code(s): R10.84 - Generalized abdominal pain Is this a current diagnosis for this admission?: Yes (5) Anemia Qualifiers: Anemia type: iron deficiency Iron deficiency anemia type: unspecified iron deficiency Qualified Code(s): D50.9 - Iron deficiency anemia, unspecified Is this a current diagnosis for this admission?: Yes - Plan Summary Summary: (1) Endocarditis Qualifiers: Endocarditis type: infective Is this a current diagnosis for this admission?: Yes Plan: 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 Presented to ED with dull retrosternal chest pain which has been present since valve replacement. Was a started started on IV vancomycin by Dr. Bowen hospitalist at [facility]. 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 [facility] on regional diversion at the admission time and was admitted here at [facility]. 05/21/2019. TTE LVEF 60%. No thrombus or vegetations noted. Severe tricuspid regurgitation. RSVP 48 to 53 mmHg.05/27/2019 Started on empiric broad-spectrum IV antibiotics. PICC line placed on 05/22/2018 on the left basilic vein. PICC line removed 06/14/2019 as per ID recommendation. Please refer to note. Tip was cultured which came back negative. Multiple positive blood cultures for pseudomonas aeruginosa. Last negative blood culture 05/31/2019 Last negative blood culture 05/31/2019. Day 23 of 56 days. Expected completion date 07/30/2019. Day 25 IV cefepime. Day 13 Ciprofloxacin 750 mg p.o. twice daily. Day 31 IV antibiotics. Received 10 days of IV levofloxacin. Switch to ciprofloxacin IV as per ID recommendation. I have been informed that [facility] will be able to do SANJU starting early June. Patient has stable and receiving IV antibiotics SANJU can wait until early June if not [facility] for [facility]JU. 06/09/2019. Infectious disease consulted. Recommendations noted. Please refer to note. Unfortunately patient has a drug abuse and could not be sent home on IV antibiotics. 06/24/2019-patient has endocarditis not a candidate to go home with an IV antibiotic therapy. Patient may need a SANJU this week. pt is presently on IV cefepime. 06/25/2019-patient has history of endocarditis secondary to percent 10 to use of IV drug abuse. Admitted with fever and chills. Blood cultures came back po sitive for pseudomonas aeruginosa latest blood cultures are negative. Patient is presently on cefepime and p.o. ciprofloxacin. Plan is to arrange for SANJU after 8 October at this hospital. Last night patient has no fever but Reiger's and chills. To closely monitor her medical condition plan is to move her to [facility] today. 06/26/2019-unfortunately the SANJU service is not available yet. The patient will continue her antibiotic therapy. She will need 6 weeks from the first set of blood cultures that were no growth. 06/27/2019-no changes to the treatment plan. 06/28/2019-she is complaining of plantar fasciitis. Achilles tendons are nontender and appear intact. Will monitor while on quinolone therapy. 06/29/2019-no change in therapy at this time. Expected end date July 30. 07/02/2019-patient is admitted with endocarditis now the plan is to arrange for SANJU after 09 July here at [place]. In the meantime plan is to continue IV antibiotic therapy. Sedated 32 of IV antibiotic therapy patient is presently on IV cefepime and Cipro floxacillin 750 mg p.o. twice a day. 07/03/2019-patient is scheduled for SANJU after July 10. Presently on IV cefepime and p.o. Cipro floxacillin as per ID recommendations. She is going to complete the antibiotic therapy on July 30. 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 Presented to ED with dull retrosternal chest pain which has been present since valve replacement. Was a started started on IV vancomycin by Dr. Bowen hospitalist at [facility]. 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 [facility] on regional diversion at the admission time and was admitted here at [facility]. 05/21/2019. TTE LVEF 60%. No thrombus or vegetations noted. Severe tricuspid regurgitation. RSVP 48 to 53 mmHg.05/27/2019 Started on empiric broad-spectrum IV antibiotics. PICC line placed on 05/22/2018 on the left basilic vein. PICC line removed on 06/14/2019 as per ID recommendation. PICC line tip sent to culture. Multiple positive blood cultures for pseudomonas aeruginosa. Last negative blood culture 05/31/2019. Plan as per #1 06/24/2019-blood cultures came back positive for Pseudomonas aeruginosa on 05 29. Latest blood cultures are negative. As per ID recommendations PICC line was removed on . As listed above latest cultures are negative. Plan is to continue the present management. 06/25/2019-blood cultures from 05/29/2019 came back positive for Pseudomonas aeruginosa as per ID recommendations patient is on p.o. Cipro floxacillin and IV cephapirin. Waiting for a SANJU procedure after 01 July. Cultures are negative. Latest 06/26/2019-multiple repeated blood cultures are negative. Continue current treatment regimen. 06/29/2019-as above 07/02/2019-latest blood cultures from 06/25/2019 are negative. (3) IV drug abuse Is this a current diagnosis for this admission?: Yes Plan: Persistent IV drug abuse. Unfortunately patient seems to be abusing drugs while in the hospital. At times patient seems to be too sleepy. UDS on 06/08/2019 for back positive for opiates. Which was confirmed as morphine. Only on Subutex and tramadol in the hospital. Patient was advised on abstinence from recreational drug abuse. Currently on on Subutex since 05/27/2019 and tramadol. Was encouraged to rehab admission one day before discharge. 06/24/2019-patient has history of IV drug abuse. Counseling was provided today. 06/26/2019-continue Suboxone 06/29/2019-suspected self injection last night. Patient reports tachycardia was from using vape. Had a long discussion about compliance with hospital rules and treatment regimen. 07/02/2019-no complaints of any pains today. She is receiving Subutex and tramadol in the hospital. (4) Abdominal pain Qualifiers: Abdominal location: generalized Qualified Code(s): R10.84 - Generalized abdominal pain Is this a current diagnosis for this admission?: Yes Plan: Resolved. CT abdomen pelvis 06/06/2019 found no acute findings except for severe constipation. History of cholecystectomy. History of hepatitis C. History of hepatic steatosis. Lipase WNL. Continue beta-blockers and supportive measures. Continue bowel regimen. Encourage ambulation and high-fiber diet. 06/24/2019-patient came with complaints of abdominal pain. Which was resolved. Lipase levels are within normal limits. 06/26/2019-the patient does have history of hepatitis C. Since the rapid response 2 nights ago the patient exhibits increased LFTs. She does have a history of hepatitis C. I will recheck the liver enzymes and if they continue to increase I will obtain imaging of the abdomen. 06/27/2019-we discussed the elevated liver enzymes. She cannot remember when her last evaluation for hepatitis C was. I will check a hep C RNA level. We will continue to monitor the chemistries. 06/28/2019-liver enzymes are slowly improving. Unsure of the spike. Could be related to long-term antibiotics. We will continue to monitor. 07/02/19-patient has history of cholecystectomy, history of hepatitis C, history of hepatic steatosis lipase levels are within normal limits recently no complaints of abdominal pains. (5) Anemia Qualifiers: Anemia type: iron deficiency Iron deficiency anemia type: unspecified iron deficiency Qualified Code(s): D50.9 - Iron deficiency anemia, unspecified Is this a current diagnosis for this admission?: Yes Plan: Microcytic. Likely combination of anemia of chronic disease and iron deficiency anemia. Denies any easy bleeding, nosebleeds, hematemesis, hemoptysis, hematochezia, vaginal bleeding or melena. 05/30/2019. Iron panel. Serum iron 18.8, TIBC 270, saturation 7%, ferritin 213, folate 5.53, B12 folate 306, 06/08/2019. Status post 2 PRBC transfusion. Daily H&H, monitor for bleeding, supportive transfusions, ferrous sulfate. 06/24/2019-patient received 2 units of PRBC. During the hospital stay. Latest hemoglobin is 11.4. Stable. 06/25/2019-patient received 2 units of PRBC during the hospital stay latest hemoglobin is 11.4 plan is to closely trend the hemoglobin on daily basis. 06/26/2019-continue to monitor hemoglobin. 07/02/2019-patient's low latest hemoglobin is 10.3 stable. #6 ) plantar fasciitis-the patient developed tenderness under the arch of the left foot. I had physical therapy see the patient. They believe it is plantar fasciitis. She is on quinolone therapy long-term. This can have an adverse effect on tendons. We will continue to monitor. Physical therapy provided exercise plan for the patient. 06/29/2019-patient reports increased pain. I have added IV Toradol as an anti- inflammatory and physical therapy is working with her. 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 This puts the stop date at approximately July 14. She should still have a SANJU once that service is finally organized and offered. Anemia-continue iron supplement Drug abuse-continue Subutex Neuropathy-continue Neurontin Plantar fasciitis-she is working with physical therapy. Toradol is available. Consider wrapping her foot for support. Pain management-avoid narcotics completely 7.hyperkalemia Potassium today is 5.5 patient refused to take Kayexalate. to Recheck the potassium levels later on this evening.
[2019-07-03] MEDS: LACTOBACILLUS ACIDOPHILUS 250 MG TAB PO SCH ×2 (09:14→17:21)
[2019-07-03] MEDS: CIPROFLOXACIN HCL 750 MG TABLET PO SCH ×2 (09:15→21:18)
[2019-07-03] MEDS: BUPRENORPHINE HCL 2 MG SUBLINGUAL TABLET SL SCH ×2 (09:15→21:19)
[2019-07-03] MEDS: TIZANIDINE HCL 4 MG TABLET PO PRN ×3 (09:16→21:19)
[2019-07-03] MEDS: METOPROLOL TARTRATE 25 MG TABLET PO SCH ×2 (09:17→21:19)
[2019-07-03] MEDS: GABAPENTIN 300 MG CAPSULE PO SCH ×2 (09:18→21:18)
[2019-07-03] MEDS: PROMETHAZINE HCL 25 MG TABLET PO PRN ×2 (09:19→21:18)
[2019-07-03] MEDS: KETOROLAC TROMETHAMINE INJ/PF 30 MG/1 ML SDV IV PRN ×3 (09:19→21:25)
[2019-07-03] MEDS: HEPARIN SOD (PORCINE) 5,000 UNIT/ML 1 ML VIAL SUBCUT SCH ×2 (09:20→21:19)
[2019-07-03] MEDS: FERROUS SULFATE 325 MG TABLET PO SCH (11:56)
[2019-07-03] MEDS: NORMAL SALINE 10 ML SDV (SCHEDULED) IV SCH ×2 (11:56→21:19)
[2019-07-03] MEDS: QUETIAPINE FUMARATE 25 MG TABLET PO SCH (21:18)
[2019-07-03] MEDS: ATORVASTATIN CALCIUM 40 MG TABLET PO SCH (21:18)
[2019-07-04] MEDS: CEFEPIME 2 GM/D5W RTU 2 GM/50 ML RTUPB IV SCH ×3 (01:04→18:38)
[2019-07-04 04:16] LABS: ABSOLUTE EOSINOPHILS # (AUTO) 0.2 10^3/uL (0.0-0.6); ABSOLUTE LYMPHOCYTES (AUTO) 1.8 10^3/uL (0.5-4.7); ABSOLUTE MONOCYTES (AUTO) 0.8 10^3/uL (0.1-1.4); ABSOLUTE NEUT (AUTO) 4.5 10^3/uL (1.7-8.2); BASOPHILS % (AUTO) 0.5 % (0-2); EOSINOPHILS % (AUTO) 2.8 % (0-6); HEMATOCRIT 31.3 % (36.0-47.0); HEMOGLOBIN 10.1 g/dL (12.0-15.5); LYMPHOCYTES % (AUTO) 24.9 % (13-45); MEAN CORPUSCULAR HEMOGLOBIN 26.9 pg (27.0-33.4); MEAN CORPUSCULAR HGB CONC 32.3 g/dL (32.0-36.0); MEAN CORPUSCULAR VOLUME 83 fl (80-97); MONOCYTES % (AUTO) 10.3 % (3-13); PLATELET COUNT 216 10^3/uL (150-450); RED BLOOD COUNT 3.76 10^6/uL (3.72-5.28); RED CELL DISTRIBUTION WIDTH 17.3 % (11.5-14.0); SEGMENTED NEUTROPHILS % (AUTO) 61.5 % (42-78); TOTAL CELLS COUNTED % (AUTO) 100 %; WHITE BLOOD COUNT 7.4 10^3/uL (4.0-10.5)
[2019-07-04 04:36] LABS: ALBUMIN 3.2 g/dL (3.5-5.0); ALKALINE PHOSPHATASE 204 U/L (38-126); ANION GAP 5 (5-19); ASPARTATE AMINO TRANSFERASE 251 U/L (14-36); BILIRUBIN,DIRECT 0.2 mg/dL (0.0-0.4); BILIRUBIN,TOTAL 0.4 mg/dL (0.2-1.3); BLOOD UREA NITROGEN 37 mg/dL (7-20); CARBON DIOXIDE 22 mmol/L (22-30); CHLORIDE 108 mmol/L (98-107); GLUCOSE 81 mg/dL (75-110); TOTAL PROTEIN 6.6 g/dL (6.3-8.2)
[2019-07-04 04:41] LABS: POTASSIUM 6.6 mmol/L (3.6-5.0)
[2019-07-04] MEDS ORDERED: IPRATROPIUM/ALBUTEROL 0.5-2.5 MG/3 ML AMPUL NEB ONE (04:49)
[2019-07-04] MEDS ORDERED: SODIUM POLYSTYRENE SULFONATE 15 GM/60 ML PO ONE ×2 (04:49→06:54)
[2019-07-04] MEDS ORDERED: CALCIUM GLUCONATE 2,000 MG in DEXTROSE 5%-WATER 100 ML IV ONE (04:49)
[2019-07-04] MEDS ORDERED: LACTULOSE SYRUP 20 GM/30 ML UDCUP PO ONE (04:50)
[2019-07-04] MEDS ORDERED: CALCIUM GLUCONATE 1000 MG/10 ML INJ IV PRN (05:00)
[2019-07-04] MEDS: TIZANIDINE HCL 4 MG TABLET PO PRN ×3 (05:57→22:32)
[2019-07-04] MEDS: KETOROLAC TROMETHAMINE INJ/PF 30 MG/1 ML SDV IV PRN (05:57)
[2019-07-04] MEDS: PANTOPRAZOLE SODIUM 40 MG TABLET.DR PO SCH (06:28)
--- NOTE | 2019-07-04 06:42 | EKG REPORT ---
SEVERITY:- NORMAL ECG - SINUS RHYTHM : Confirmed by: Tyler Delacruz MD 04-Jul-2019 06:41:34
[2019-07-04] MEDS ORDERED: DEXTROSE 50%-WATER 25 GM/50 ML DISP.SYRIN IV ONE (06:55)
[2019-07-04] MEDS: FERROUS SULFATE 325 MG TABLET PO SCH (08:15)
[2019-07-04] MEDS ORDERED: OXYCODONE-ACETAMINOPHEN 5-325 MG TABLET PO ONE (08:45)
[2019-07-04] MEDS ORDERED: INSULIN REG, HUMAN 100 UNIT/ML 3 ML VIAL (PYX) IV ONE (08:46)
--- NOTE | 2019-07-04 08:46 | PDOC PROGRESS REPORT ---
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 She presents with dull retrosternal chest pain which has been present since valve replacement has developed fever and some shortness of breath prompting evaluation emergency room where she is found to have sepsis with hypotension, tachycardia, leukocytosis of 19,000, hypo-natremia hypomagnesemia hypo-kalemia and thrombocytopenia. She started on IV vancomycin and Dr. Bowen hospitalist at [facility] is consulted. 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 Subsequent cultures did not grow. [facility] is currently on regional diversion and are subsequently unable to accept her for transfer. She is referred to the hospitalist for admission. 06/04/2019. No acute events overnight. 06/05/2017. No acute events overnight. Denies any fever, chills, nausea, v omiting, diarrhea, constipation or any urinary symptoms. 06/06/2019. No acute events overnight. Continues to complain of chronic right upper quadrant abdominal pain. Denies any fever, chills, nausea, vomiting, diarrhea, constipation or any urinary symptoms. Patient is p.o. tolerant, ambulatory, having normal bowel and bladder movements. 06/07/2019. No acute events overnight. Significant improvement of abdominal pain after having a large bowel movement this morning. Patient is ambulatory, in no apparent distress, p.o. tolerant. Patient has been noted to have low blood pressure however she is asymptomatic. 06/08/2019. No acute events overnight, patient is comfortably sitting in bed, in no apparent distress, abdominal pain has improved significantly, ambulatory, p.o. tolerant, having normal bowel bladder movement, denies any fever, chills, nausea, vomiting, diarrhea, constipation or any urinary symptoms. Patient hemoglobin is 7.7 today denies any hematemesis, hemoptysis, melena, vaginal bleeding or any hematochezia. Stool guaiac has been negative. We will give 2 PRBC today. 06/09/2019. No acute events overnight. Comfortably sitting in bed enjoying her breakfast. In no apparent distress. Abdominal pain has resolved, ambulatory, having normal bladder and bowel movement. Denies any fever, chills, nausea, vomiting, diarrhea, constipation or any urinary symptoms. 06/14/2019. No acute events overnight. Comfortably sitting in bed eating ice chips, no apparent distress, alert oriented x3, denies any abdominal pain, ambulatory, p.o. tolerant, having normal bowel and bladder movements, denies any fever, chills, nausea, vomiting, diarrhea, or any urinary symptoms. Discussed with patient about the need for PICC line to come out as it was placed on 05/22/2019 and has had several positive blood cultures since then. As per ID recommendation will remove PICC line. 06/15/2019. No acute events overnight. Comfortably sitting in bed enjoying her breakfast. Alert oriented x3, denies any fever, chills, nausea, vomiting, diarrhea, constipation or any urinary symptoms. PICC line removed on 06/14/2019. PICC line tip has been sent to culture. 06/16/2019. No acute events overnight. Comfortably sitting in bed enjoying her breakfast. Alert oriented x3, denies any fever, chills, nausea, vomiting, diarrhea, constipation or any urinary symptoms. 06/17/2018. No acute events overnight. Resting in bed. Complaining bed. Complaining of chronic back pain, alert oriented x3, denies any fever, chills, nausea, vomiting, diarrhea, constipation or any urinary symptoms. 06/18/2019. No acute events overnight. Comfortably sitting in bed, enjoying her breakfast, back pain has improved since being started on Percocet, denies any fever, chills, nausea, vomiting, diarrhea, constipation or any urinary symptoms. P.o. tolerant, ambulatory, having normal bowel bladder movement. 06/19/2019. No acute events overnight. Denies any fever, chills, nausea, vomiting, diarrhea, constipation or any urinary symptoms. P.o. tolerant, ambulatory, having normal bowel bladder movement. 06/20/2019. Complaining of having nightmares overnight, could not get a good night sleep, back pain is improving with tizanidine and Percocet, denies any fever, chills, nausea, shortness of breath, diarrhea or any constipation. P.o. tolerant, ambulatory having normal bladder and bowel movements. 06/21/2019. No acute events overnight. Denies any fever, chills, nausea, shortness of breath, diarrhea or any constipation. P.o. tolerant, ambulatory having normal bladder and bowel movements. 06/22/2019. No acute events overnight. Denies any fever, chills, nausea, shortness of breath, diarrhea or any constipation. P.o. tolerant, ambulatory having normal bladder and bowel movements. 06/23/2019. No acute events overnight, patient is sitting in bed, pleasant, enjoying her breakfast, lower back pain is improving, denies any ,nausea, vomiting, diarrhea, constipation or any urinary symptoms. Has been refusing her docusate, Cymbalta, pantoprazole and was seems to be discontinued as Cymbalta makes her very anxious. 06/24/2019-no acute events in the last 24 hours. Afebrile. Patient is com fortable in the bed talking to the family members on the phone. 06/25/2019-response was called last night patient found to be shivering associated with chills. Blood pressure was extremely elevated. Patient was given Motrin and repeat blood cultures was done. Patient stable this morning. To closely monitor her medical condition plan is to move her from medical floor to IMCU today. Patient denies any complaints. Alert and awake communicating well. 07/01/2019. No acute events overnight, patient comfortably resting in bed in no apparent distress, still complaining of chronic back pain, was to be placed back on Percocet, tizanidine helping, denies any fever, chills, nausea, vomiting, diarrhea, constipation or any urinary symptoms. Reporting that her plantar fasciitis has totally resolved. 07/02/2019-no acute events in the last 24 hours. Afebrile. She is scheduled for SANJU after the of this month at this facility. Meantime will continue the antibiotic therapy until August 02 as per ID. Latest blood cultures are negative. 07/03/2019-no acute events in the last 24 hours. Patient is afebrile. Serum potassium came back 5.5 plan to give Kayexalate with the patient is refusing. 07/04/2019-serum potassium level 6.6 today. Yesterday's 5.5 she refused to take Kayexalate yesterday. After long discussion she agreed to take Kayexalate and we can to repeat the potassium levels this afternoon. pt Complaints of not feeling well requesting 1 extra dose of Percocet. Reason For Visit: IV DRUG ABUSE,SEPSIS,ENDOCARDITIS Physical Exam Vital Signs: Temp Pulse Resp BP Pulse Ox 97.9 F 68 16 109/64 98 07/04/19 03:55 07/04/19 06:51 07/04/19 06:51 07/04/19 03:55 07/04/19 06:51 Intake & Output 07/03/19 07/04/19 07/05/19 06:59 06:59 06:59 Intake Total 480 972 Balance 480 972 Weight 92.9 kg 94.1 kg General appearance: PRESENT: no acute distress Head exam: PRESENT: atraumatic Eye exam: PRESENT: PERRLA Mouth exam: PRESENT: moist, tongue midline Teeth exam: PRESENT: poor dentation Neck exam: ABSENT: carotid bruit, JVD, lymphadenopathy, thyromegaly Respiratory exam: PRESENT: decreased breath sounds Cardiovascular exam: PRESENT: RRR. ABSENT: diastolic murmur, rubs, systolic murmur GI/Abdominal exam: PRESENT: normal bowel sounds, soft. ABSENT: distended, guarding, mass, organolmegaly, rebound, tenderness Rectal exam: PRESENT: deferred Extremities exam: PRESENT: full ROM. ABSENT: calf tenderness, clubbing, pedal edema Neurological exam: PRESENT: alert, awake, oriented to person, oriented to place, oriented to time, oriented to situation, CN II-XII grossly intact. ABSENT: motor sensory deficit Psychiatric exam: PRESENT: appropriate affect, normal mood. ABSENT: homicidal ideation, suicidal ideation Results Laboratory Results: 07/04/19 04:00 07/04/19 04:00 07/04/19 07/04/19 04:00 04:00 WBC 7.4 RBC 3.76 Hgb 10.1 L Hct 31.3 L MCV 83 MCH 26.9 L MCHC 32.3 RDW 17.3 H Plt Count 216 Seg Neutrophils % 61.5 Sodium 135.3 L Potassium 6.6 H* Chloride 108 H Carbon Dioxide 22 Anion Gap 5 BUN 37 H Creatinine 1.01 Est GFR ( Amer) > 60 Glucose 81 Calcium 9.0 Magnesium 1.6 Total Bilirubin 0.4 AST 251 H Alkaline Phosphatase 204 H Total Protein 6.6 Albumin 3.2 L 05/21/19 05/22/19 05/22/19 23:07 02:06 11:00 Creatine Kinase CK-MB (CK-2) Troponin I 0.098 0.098 0.070 NT-Pro-B Natriuret Pep 05/22/19 05/22/19 05/22/19 14:00 14:35 20:04 Creatine Kinase CK-MB (CK-2) Troponin I Cancelled 0.060 0.037 NT-Pro-B Natriuret Pep 05/28/19 05/28/19 06/02/19 00:15 00:15 00:20 Creatine Kinase < 20 L < 20 L CK-MB (CK-2) 0.49 Troponin I 0.077 NT-Pro-B Natriuret Pep 06/02/19 06/02/19 06/02/19 00:20 06:15 06:15 Creatine Kinase < 20 L CK-MB (CK-2) 1.53 1.39 Troponin I 0.194 0.171 NT-Pro-B Natriuret Pep 06/02/19 06/02/19 06/28/19 13:30 13:30 03:40 Creatine Kinase < 20 L 26 L CK-MB (CK-2) 1.68 Troponin I 0.175 NT-Pro-B Natriuret Pep 4000 H Impressions: Chest X-Ray 05/21/19 23:04 IMPRESSION: 1. No acute pulmonary findings. 2. Previous sternotomy Abdomen Ultrasound 05/28/19 00:00 IMPRESSION: Mild splenomegaly. No acute findings otherwise. Abdomen/Pelvis CT 06/06/19 00:00 IMPRESSION: 1. Gastric distention and debris. Ileus. Constipation. 2. Normal appendix. No acute abdominopelvic abnormality. Guidance Fluoroscopy 06/23/19 00:00 IMPRESSION: SUCCESSFUL PLACEMENT OF A 5 FR DUAL LUMEN 38 CM PICC IN THE LEFT BASILIC VEIN. Interventional Vascular Procedure 06/23/19 00:00 IMPRESSION: SUCCESSFUL PLACEMENT OF A 5 FR DUAL LUMEN 38 CM PICC IN THE LEFT BASILIC VEIN. PICC Line Insertion 06/23/19 00:00 IMPRESSION: SUCCESSFUL PLACEMENT OF A 5 FR DUAL LUMEN 38 CM PICC IN THE LEFT BASILIC VEIN. Foot X-Ray 06/29/19 00:00 IMPRESSION: NEGATIVE STUDY OF THE LEFT FOOT. NO EXPLANATION FOR PAIN. Assessment and Plan - Diagnosis (1) Endocarditis Qualifiers: Endocarditis type: infective Is this a current diagnosis for this admission?: Yes Plan: 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 Status post tricuspid valve replacement September 2018 at [facility]. As per previous physicians note her gill tender at at [place] is aware of this admission. Presented to ED with dull retrosternal chest pain which has been present since valve replacement. Was a started started on IV vancomycin by Dr. Bowen hospitalist at [facility]. 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 [facility] on regional diversion at the admission time and was admitted here at [facility]. 05/21/2019. TTE LVEF 60%. No thrombus or vegetations noted. Severe tricuspid regurgitation. RSVP 48 to 53 mmHg.05/27/2019 Started on empiric broad-spectrum IV antibiotics. PICC line placed on 05/22/2018 on the left basilic vein. PICC line removed 06/14/2019 as per ID recommendation. Please refer to note. Tip was cultured which came back negative. Multiple positive blood cultures for pseudomonas aeruginosa. Last negative blood culture 05/31/2019. Last negative blood culture 05/31/2019. Day 23 of 56 days. Expected completion date 07/30/2019. Day 25 IV cefepime. Day 13 Ciprofloxacin 750 mg p.o. twice daily. Day 31 IV antibiotics. Received 10 days of IV levofloxacin. Switch to ciprofloxacin IV as per ID recommendation. I have been informed that [facility] will be able to do SANJU starting early June. Patient has stable and receiving IV antibiotics SANJU can wait until early June if not will call [facility] again for transfer for SANJU. 06/09/2019. Infectious disease consulted. Recommendations noted. Please refer to note. Unfortunately patient has a drug abuse and could not be sent home on IV antibiotics. 07/03/2019-patient has endocarditis not a candidate to go home with an IV antibiotic therapy. Patient may need a SANJU this week. pt is presently on IV cefepime. 07/04/2019-patient has history of endocarditis on IV antibiotic therapy plan for SANJU next week. Patient is presently-IV cefepime and p.o. ciprofloxacin. (2) Bacteremia due to Pseudomonas Is this a current diagnosis for this admission?: Yes (3) IV drug abuse Is this a current diagnosis for this admission?: Yes (4) Abdominal pain Qualifiers: Abdominal location: generalized Qualified Code(s): R10.84 - Generalized abdominal pain Is this a current diagnosis for this admission?: Yes (5) Anemia Qualifiers: Anemia type: iron deficiency Iron deficiency anemia type: unspecified iron deficiency Qualified Code(s): D50.9 - Iron deficiency anemia, unspecified Is this a current diagnosis for this admission?: Yes - Plan Summary Summary: (1) Endocarditis Qualifiers: Endocarditis type: infective Is this a current diagnosis for this admission?: Yes Plan: 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 Status post tricuspid valve replacement September 2018 at [facility]. As per previous physicians note her gill tender at at [place] is aware of this admission. Presented to ED with dull retrosternal chest pain which has been present since valve replacement. Was a started started on IV vancomycin by Dr. Bowen hospitalist at [facility]. 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 [facility] on regional diversion at the admission time and was admitted here at [facility]. 05/21/2019. TTE LVEF 60%. No thrombus or vegetations noted. Severe tricuspid regurgitation. RSVP 48 to 53 mmHg.05/27/2019 Started on empiric broad-spectrum IV antibiotics. PICC line placed on 05/22/2018 on the left basilic vein. PICC line removed 06/14/2019 as per ID recommendation. Please refer to note. Tip was cultured which came back negative. Multiple positive blood cultures for pseudomonas aeruginosa. Last negative blood culture 05/31/2019 Last negative blood culture 05/31/2019. Day 23 of 56 days. Expected completion date 07/30/2019. Day 25 IV cefepime. Day 13 Ciprofloxacin 750 mg p.o. twice daily. Day 31 IV antibiotics. Received 10 days of IV levofloxacin. Switch to ciprofloxacin IV as per ID recommendation. I have been informed that [facility] will be able to do SANJU starting early June. Patient has stable and receiving IV antibiotics SANJU can wait until early June if not will call [facility] again for transfer for SANJU. 06/09/2019. Infectious disease consulted. Recommendations noted. Please refer to note. Unfortunately patient has a drug abuse and could not be sent home on IV antibi otics. 06/24/2019-patient has endocarditis not a candidate to go home with an IV antibiotic therapy. Patient may need a SANJU this week. pt is presently on IV cefepime. 06/25/2019-patient has history of endocarditis secondary to percent 10 to use of IV drug abuse. Admitted with fever and chills. Blood cultures came back positive for pseudomonas aeruginosa latest blood cultures are negative. Patient is presently on cefepime and p.o. ciprofloxacin. Plan is to arrange for SANJU after 01 July at this hospital. Last night patient has no fever but Reiger's and chills. To closely monitor her medical condition plan is to move her to [facility] today. 06/26/2019-unfortunately the SANJU service is not available yet. The patient will continue her antibiotic therapy. She will need 6 weeks from the first set of blood cultures that were no growth. 06/27/2019-no changes to the treatment plan. 06/28/2019-she is complaining of plantar fasciitis. Achilles tendons are nontender and appear intact. Will monitor while on quinolone therapy. 06/29/2019-no change in therapy at this time. Expected end date July 30. 07/02/2019-patient is admitted with endocarditis now the plan is to arrange for SANJU after 09 July here at [place]. In the meantime plan is to continue IV antibiotic therapy. Sedated 32 of IV antibiotic therapy patient is presently on IV cefepime and Cipro floxacillin 750 mg p.o. twice a day. 07/03/2019-patient is scheduled for SANJU after July 10. Presently on IV cefepime and p.o. Cipro floxacillin as per ID recommendations. She is going to complete the antibiotic therapy on July 30. 07/04/2019-patient admitted with endocarditis on IV cefepime and p.o. Cipro floxacillin. Plan to arrange for SANJU next week. 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 Status post tricuspid valve replacement September 2018 at [facility]. Presented to ED with dull retrosternal chest pain which has been present since valve replacement. Was a started started on IV vancomycin by Dr. Bowen hospitalist at [facility]. 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 [facility] on regional diversion at the admission time and was admitted here at [facility]. 05/21/2019. TTE LVEF 60%. No thrombus or vegetations noted. Severe tricuspid regurgitation. RSVP 48 to 53 mmHg.05/27/2019 Started on empiric broad-spectrum IV antibiotics. PICC line placed on 05/22/2018 on the left basilic vein. PICC line removed on 06/14/2019 as per ID recommendation. PICC line tip sent to culture. Multiple positive blood cultures for pseudomonas aeruginosa. Last negative blood culture 05/31/2019. Plan as per #1 06/24/2019-blood cultures came back positive for Pseudomonas aeruginosa on 05 29. Latest blood cultures are negative. As per ID recommendations PICC line was removed on . As listed above latest cultures are negative. Plan is to continue the present management. 06/25/2019-blood cultures from 05/29/2019 came back positive for Pseudomonas aeruginosa as per ID recommendations patient is on p.o. Cipro floxacillin and IV cephapirin. Waiting for a SANJU procedure after 01 July. Cultures are negative. Latest 06/26/2019-multiple repeated blood cultures are negative. Continue current treatment regimen. 06/29/2019-as above 07/02/2019-latest blood cultures from 06/25/2019 are negative. 07/04/2019-latest blood cultures are negative. Patient has endocarditis. History of IV drug abuse. SANJU is scheduled for next week. Plan is to continue IV cephapirin and p.o. Cipro floxacillin. (3) IV drug abuse Is this a current diagnosis for this admission?: Yes Plan: Persistent IV drug abuse. Unfortunately patient seems to be abusing drugs while in the hospital. At times patient seems to be too sleepy. UDS on 06/08/2019 for back positive for opiates. Which was confirmed as morphine. Only on Subutex and tramadol in the hospital. Patient was advised on abstinence from recreational drug abuse. Currently on on Subutex since 05/27/2019 and tramadol. Was encouraged to rehab admission one day before discharge. 06/24/2019-patient has history of IV drug abuse. Counseling was provided today. 06/26/2019-continue Suboxone 06/29/2019-suspected self injection last night. Patient reports tachycardia was from using vape. Had a long discussion about compliance with hospital rules and treatment regimen. 07/02/2019-no complaints of any pains today. She is receiving Subutex and tramadol in the hospital. (4) Abdominal pain Qualifiers: Abdominal location: generalized Qualified Code(s): R10.84 - Generalized abdominal pain Is this a current diagnosis for this admission?: Yes Plan: Resolved. CT abdomen pelvis 06/06/2019 found no acute findings except for severe constipation. History of cholecystectomy. History of hepatitis C. History of hepatic steatosis. Lipase WNL. Continue beta-blockers and supportive measures. Continue bowel regimen. Encourage ambulation and high-fiber diet. 06/24/2019-patient came with complaints of abdominal pain. Which was resolved. Lipase levels are within normal limits. 06/26/2019-the patient does have history of hepatitis C. Since the rapid response 2 nights ago the patient exhibits increased LFTs. She does have a history of hepatitis C. I will recheck the liver enzymes and if they continue to increase I will obtain imaging of the abdomen. 06/27/2019-we discussed the elevated liver enzymes. She cannot remember when her last evaluation for hepatitis C was. I will check a hep C RNA level. We will continue to monitor the chemistries. 06/28/2019-liver enzymes are slowly improving. Unsure of the spike. Could be related to long-term antibiotics. We will continue to monitor. 07/02/19-patient has history of cholecystectomy, history of hepatitis C, history of hepatic steatosis lipase levels are within normal limits recently no complaints of abdominal pains. (5) Anemia Qualifiers: Anemia type: iron deficiency Iron deficiency anemia type: unspecified iron deficiency Qualified Code(s): D50.9 - Iron deficiency anemia, unspecified Is this a current diagnosis for this admission?: Yes Plan: Microcytic. Likely combination of anemia of chronic disease and iron deficiency anemia. Denies any easy bleeding, nosebleeds, hematemesis, hemoptysis, hematochezia, vaginal bleeding or melena. 05/30/2019. Iron panel. Serum iron 18.8, TIBC 270, saturation 7%, ferritin 213, folate 5.53, B12 folate 306, 06/08/2019. Status post 2 PRBC transfusion. Daily H&H, monitor for bleeding, supportive transfusions, ferrous sulfate. 06/24/2019-patient received 2 units of PRBC. During the hospital stay. Latest hemoglobin is 11.4. Stable. 06/25/2019-patient received 2 units of PRBC during the hospital stay latest hemoglobin is 11.4 plan is to closely trend the hemoglobin on daily basis. 06/26/2019-continue to monitor hemoglobin. 07/02/2019-patient's low latest hemoglobin is 10.3 stable. #6 ) plantar fasciitis-the patient developed tenderness under the arch of the left foot. I had physical therapy see the patient. They believe it is plantar fasciitis. She is on quinolone therapy long-term. This can have an adverse effect on tendons. We will continue to monitor. Physical therapy provided exercise plan for the patient. 06/29/2019-patient reports increased pain. I have added IV Toradol as an anti- inflammatory and physical therapy is working with her. 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 This puts the stop date at dejuan roximately July 14. She should still have a SANJU once that service is finally organized and offered. Anemia-continue iron supplement Drug abuse-continue Subutex Neuropathy-continue Neurontin Plantar fasciitis-she is working with physical therapy. Toradol is available. Consider wrapping her foot for support. Pain management-avoid narcotics completely 7.hyperkalemia Potassium today is 5.5 patient refused to take Kayexalate. to Recheck the potassium levels later on this evening. 07/04/2019-patient's potassium today 6.6 to Kayexalate and dextrose along with insulin IV to bring the potassium down repeat the potassium levels this afternoon. - Time Time Spent with patient: 25-34 minutes Smoking Cessation Education: over 10 minutes Medications reviewed and adjusted accordingly: Yes Anticipated discharge: Home
[2019-07-04] MEDS: LACTOBACILLUS ACIDOPHILUS 250 MG TAB PO SCH ×2 (09:36→18:39)
[2019-07-04] MEDS: BUPRENORPHINE HCL 2 MG SUBLINGUAL TABLET SL SCH ×2 (09:36→22:16)
[2019-07-04] MEDS: METOPROLOL TARTRATE 25 MG TABLET PO SCH ×2 (09:36→22:18)
[2019-07-04] MEDS: CIPROFLOXACIN HCL 750 MG TABLET PO SCH ×2 (09:36→22:16)
[2019-07-04] MEDS: GABAPENTIN 300 MG CAPSULE PO SCH ×2 (09:37→22:16)
[2019-07-04] MEDS: HEPARIN SOD (PORCINE) 5,000 UNIT/ML 1 ML VIAL SUBCUT SCH ×2 (09:38→22:17)
[2019-07-04] MEDS: NORMAL SALINE 10 ML SDV (SCHEDULED) IV SCH ×2 (09:42→22:17)
[2019-07-04] MEDS: PROMETHAZINE HCL 25 MG TABLET PO PRN (14:16)
[2019-07-04] MEDS: QUETIAPINE FUMARATE 25 MG TABLET PO SCH (22:16)
[2019-07-04] MEDS: ATORVASTATIN CALCIUM 40 MG TABLET PO SCH (22:16)
[2019-07-05] MEDS: CEFEPIME 2 GM/D5W RTU 2 GM/50 ML RTUPB IV SCH ×3 (01:10→17:39)
[2019-07-05 05:09] LABS: ABSOLUTE EOSINOPHILS # (AUTO) 0.2 10^3/uL (0.0-0.6); ABSOLUTE LYMPHOCYTES (AUTO) 1.7 10^3/uL (0.5-4.7); ABSOLUTE MONOCYTES (AUTO) 0.7 10^3/uL (0.1-1.4); ABSOLUTE NEUT (AUTO) 5.6 10^3/uL (1.7-8.2); BASOPHILS % (AUTO) 0.5 % (0-2); EOSINOPHILS % (AUTO) 2.7 % (0-6); HEMATOCRIT 29.8 % (36.0-47.0); HEMOGLOBIN 9.8 g/dL (12.0-15.5); LYMPHOCYTES % (AUTO) 20.4 % (13-45); MEAN CORPUSCULAR HEMOGLOBIN 27.7 pg (27.0-33.4); MEAN CORPUSCULAR VOLUME 84 fl (80-97); MONOCYTES % (AUTO) 8.7 % (3-13); PLATELET COUNT 237 10^3/uL (150-450); RED BLOOD COUNT 3.54 10^6/uL (3.72-5.28); RED CELL DISTRIBUTION WIDTH 17.4 % (11.5-14.0); SEGMENTED NEUTROPHILS % (AUTO) 67.7 % (42-78); TOTAL CELLS COUNTED % (AUTO) 100 %; WHITE BLOOD COUNT 8.3 10^3/uL (4.0-10.5)
[2019-07-05 05:30] LABS: ALBUMIN 3.3 g/dL (3.5-5.0); ALKALINE PHOSPHATASE 193 U/L (38-126); ANION GAP 9 (5-19); ASPARTATE AMINO TRANSFERASE 235 U/L (14-36); BILIRUBIN,DIRECT 0.3 mg/dL (0.0-0.4); BILIRUBIN,TOTAL 0.3 mg/dL (0.2-1.3); BLOOD UREA NITROGEN 24 mg/dL (7-20); CALCIUM 8.8 mg/dL (8.4-10.2); CARBON DIOXIDE 21 mmol/L (22-30); CHLORIDE 110 mmol/L (98-107); GLUCOSE 126 mg/dL (75-110); POTASSIUM 5.5 mmol/L (3.6-5.0); TOTAL PROTEIN 6.7 g/dL (6.3-8.2)
[2019-07-05] MEDS: PANTOPRAZOLE SODIUM 40 MG TABLET.DR PO SCH (06:10)
--- NOTE | 2019-07-05 08:09 | EKG REPORT ---
SEVERITY:- BORDERLINE ECG - SINUS RHYTHM PROBABLE LEFT ATRIAL ABNORMALITY : Confirmed by: Tyler Delacruz MD 05-Jul-2019 08:07:54
--- NOTE | 2019-07-05 08:23 | PDOC PROGRESS REPORT ---
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 She presents with dull retrosternal chest pain which has been present since valve replacement has developed fever and some shortness of breath prompting evaluation emergency room where she is found to have sepsis with hypotension, tachycardia, leukocytosis of 19,000, hypo-natremia hypomagnesemia hypo-kalemia and thrombocytopenia. She started on IV vancomycin and Dr. Bowen hospitalist at [facility] is consulted. 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 Subsequent cultures did not grow. [facility] is currently on regional diversion and are subsequently unable to accept her for transfer. She is referred to the hospitalist for admission. 06/04/2019. No acute events overnight. 06/05/2017. No acute events overnight. Denies any fever, chills, nausea, v omiting, diarrhea, constipation or any urinary symptoms. 06/06/2019. No acute events overnight. Continues to complain of chronic right upper quadrant abdominal pain. Denies any fever, chills, nausea, vomiting, diarrhea, constipation or any urinary symptoms. Patient is p.o. tolerant, ambulatory, having normal bowel and bladder movements. 06/07/2019. No acute events overnight. Significant improvement of abdominal pain after having a large bowel movement this morning. Patient is ambulatory, in no apparent distress, p.o. tolerant. Patient has been noted to have low blood pressure however she is asymptomatic. 06/08/2019. No acute events overnight, patient is comfortably sitting in bed, in no apparent distress, abdominal pain has improved significantly, ambulatory, p.o. tolerant, having normal bowel bladder movement, denies any fever, chills, nausea, vomiting, diarrhea, constipation or any urinary symptoms. Patient hemoglobin is 7.7 today denies any hematemesis, hemoptysis, melena, vaginal bleeding or any hematochezia. Stool guaiac has been negative. We will give 2 PRBC today. 06/09/2019. No acute events overnight. Comfortably sitting in bed enjoying her breakfast. In no apparent distress. Abdominal pain has resolved, ambulatory, having normal bladder and bowel movement. Denies any fever, chills, nausea, vomiting, diarrhea, constipation or any urinary symptoms. 06/14/2019. No acute events overnight. Comfortably sitting in bed eating ice chips, no apparent distress, alert oriented x3, denies any abdominal pain, ambulatory, p.o. tolerant, having normal bowel and bladder movements, denies any fever, chills, nausea, vomiting, diarrhea, or any urinary symptoms. Discussed with patient about the need for PICC line to come out as it was placed on 05/22/2019 and has had several positive blood cultures since then. As per ID recommendation will remove PICC line. 06/15/2019. No acute events overnight. Comfortably sitting in bed enjoying her breakfast. Alert oriented x3, denies any fever, chills, nausea, vomiting, diarrhea, constipation or any urinary symptoms. PICC line removed on 06/14/2019. PICC line tip has been sent to culture. 06/16/2019. No acute events overnight. Comfortably sitting in bed enjoying her breakfast. Alert oriented x3, denies any fever, chills, nausea, vomiting, diarrhea, constipation or any urinary symptoms. 06/17/2018. No acute events overnight. Resting in bed. Complaining bed. Complaining of chronic back pain, alert oriented x3, denies any fever, chills, nausea, vomiting, diarrhea, constipation or any urinary symptoms. 06/18/2019. No acute events overnight. Comfortably sitting in bed, enjoying her breakfast, back pain has improved since being started on Percocet, denies any fever, chills, nausea, vomiting, diarrhea, constipation or any urinary symptoms. P.o. tolerant, ambulatory, having normal bowel bladder movement. 06/19/2019. No acute events overnight. Denies any fever, chills, nausea, vomiting, diarrhea, constipation or any urinary symptoms. P.o. tolerant, ambulatory, having normal bowel bladder movement. 06/20/2019. Complaining of having nightmares overnight, could not get a good night sleep, back pain is improving with tizanidine and Percocet, denies any fever, chills, nausea, shortness of breath, diarrhea or any constipation. P.o. tolerant, ambulatory having normal bladder and bowel movements. 06/21/2019. No acute events overnight. Denies any fever, chills, nausea, shortness of breath, diarrhea or any constipation. P.o. tolerant, ambulatory having normal bladder and bowel movements. 06/22/2019. No acute events overnight. Denies any fever, chills, nausea, shortness of breath, diarrhea or any constipation. P.o. tolerant, ambulatory having normal bladder and bowel movements. 06/23/2019. No acute events overnight, patient is sitting in bed, pleasant, enjoying her breakfast, lower back pain is improving, denies any ,nausea, vomiting, diarrhea, constipation or any urinary symptoms. Has been refusing her docusate, Cymbalta, pantoprazole and was seems to be discontinued as Cymbalta makes her very anxious. 06/24/2019-no acute events in the last 24 hours. Afebrile. Patient is com fortable in the bed talking to the family members on the phone. 06/25/2019-response was called last night patient found to be shivering associated with chills. Blood pressure was extremely elevated. Patient was given Motrin and repeat blood cultures was done. Patient stable this morning. To closely monitor her medical condition plan is to move her from medical floor to IMCU today. Patient denies any complaints. Alert and awake communicating well. 07/01/2019. No acute events overnight, patient comfortably resting in bed in no apparent distress, still complaining of chronic back pain, was to be placed back on Percocet, tizanidine helping, denies any fever, chills, nausea, vomiting, diarrhea, constipation or any urinary symptoms. Reporting that her plantar fasciitis has totally resolved. 07/02/2019-no acute events in the last 24 hours. Afebrile. She is scheduled for SANJU after the of this month at this facility. Meantime will continue the antibiotic therapy until August 02 as per ID. Latest blood cultures are negative. 07/03/2019-no acute events in the last 24 hours. Patient is afebrile. Serum potassium came back 5.5 plan to give Kayexalate with the patient is refusing. 07/04/2019-serum potassium level 6.6 today. Yesterday's 5.5 she refused to take Kayexalate yesterday. After long discussion she agreed to take Kayexalate and we can to repeat the potassium levels this afternoon. pt Complaints of not feeling well requesting 1 extra dose of Percocet. 07/05/2019-serum potassium came down to 5.[address] her on low potassium diet and to give D50 1 ampoule along with 6 units of regular insulin IV. No acute events in the last 24 hours. Afebrile. Plan is to continue iv cefepime I am and p.o. Cipro floxacillin for endocarditis. She is going to have a SANJU next week. Reason For Visit: IV DRUG ABUSE,SEPSIS,ENDOCARDITIS Physical Exam Vital Signs: Temp Pulse Resp BP Pulse Ox 98.1 F 72 18 84/59 L 100 07/05/19 07:36 07/05/19 07:36 07/05/19 07:36 07/05/19 07:36 07/05/19 07:36 Intake & Output 07/04/19 07/05/19 07/06/19 06:59 06:59 06:59 Intake Total 972 1072 Balance 972 1072 Weight 94.1 kg 91.3 kg General appearance: PRESENT: no acute distress Head exam: PRESENT: atraumatic Eye exam: PRESENT: PERRLA Mouth exam: PRESENT: dry mucosa, neck supple Teeth exam: PRESENT: poor dentation Respiratory exam: PRESENT: decreased breath sounds Cardiovascular exam: PRESENT: RRR. ABSENT: diastolic murmur, rubs, systolic murmur GI/Abdominal exam: PRESENT: normal bowel sounds, soft. ABSENT: distended, guarding, mass, organolmegaly, rebound, tenderness Rectal exam: PRESENT: deferred Extremities exam: PRESENT: full ROM. ABSENT: calf tenderness, clubbing, pedal edema Neurological exam: PRESENT: alert, awake, oriented to person, oriented to place, oriented to time, oriented to situation, CN II-XII grossly intact. ABSENT: motor sensory deficit Results Laboratory Results: 07/05/19 04:15 07/05/19 04:15 07/04/19 07/05/19 07/05/19 19:30 04:15 04:15 WBC 8.3 RBC 3.54 L Hgb 9.8 L Hct 29.8 L MCV 84 MCH 27.7 MCHC 33.0 RDW 17.4 H Plt Count 237 Seg Neutrophils % 67.7 Sodium 140.2 Potassium 5.6 H D 5.5 H Chloride 110 H Carbon Dioxide 21 L Anion Gap 9 BUN 24 H Creatinine 0.83 Est GFR ( Amer) > 60 Glucose 126 H Calcium 8.8 Magnesium 1.5 L Total Bilirubin 0.3 AST 235 H Alkaline Phosphatase 193 H Total Protein 6.7 Albumin 3.3 L 05/21/19 05/22/19 05/22/19 23:07 02:06 11:00 Creatine Kinase CK-MB (CK-2) Troponin I 0.098 0.098 0.070 NT-Pro-B Natriuret Pep 05/22/19 05/22/19 05/22/19 14:00 14:35 20:04 Creatine Kinase CK-MB (CK-2) Troponin I Cancelled 0.060 0.037 NT-Pro-B Natriuret Pep 05/28/19 05/28/19 06/02/19 00:15 00:15 00:20 Creatine Kinase < 20 L < 20 L CK-MB (CK-2) 0.49 Troponin I 0.077 NT-Pro-B Natriuret Pep 06/02/19 06/02/19 06/02/19 00:20 06:15 06:15 Creatine Kinase < 20 L CK-MB (CK-2) 1.53 1.39 Troponin I 0.194 0.171 NT-Pro-B Natriuret Pep 06/02/19 06/02/19 06/28/19 13:30 13:30 03:40 Creatine Kinase < 20 L 26 L CK-MB (CK-2) 1.68 Troponin I 0.175 NT-Pro-B Natriuret Pep 4000 H Impressions: Chest X-Ray 05/21/19 23:04 IMPRESSION: 1. No acute pulmonary findings. 2. Previous sternotomy Abdomen Ultrasound 05/28/19 00:00 IMPRESSION: Mild splenomegaly. No acute findings otherwise. Abdomen/Pelvis CT 06/06/19 00:00 IMPRESSION: 1. Gastric distention and debris. Ileus. Constipation. 2. Normal appendix. No acute abdominopelvic abnormality. Guidance Fluoroscopy 06/23/19 00:00 IMPRESSION: SUCCESSFUL PLACEMENT OF A 5 FR DUAL LUMEN 38 CM PICC IN THE LEFT B ASILIC VEIN. Interventional Vascular Procedure 06/23/19 00:00 IMPRESSION: SUCCESSFUL PLACEMENT OF A 5 FR DUAL LUMEN 38 CM PICC IN THE LEFT BASILIC VEIN. PICC Line Insertion 06/23/19 00:00 IMPRESSION: SUCCESSFUL PLACEMENT OF A 5 FR DUAL LUMEN 38 CM PICC IN THE LEFT BASILIC VEIN. Foot X-Ray 06/29/19 00:00 IMPRESSION: NEGATIVE STUDY OF THE LEFT FOOT. NO EXPLANATION FOR PAIN. Assessment and Plan - Diagnosis (1) Endocarditis Qualifiers: Endocarditis type: infective Is this a current diagnosis for this admission?: Yes Plan: 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 Status post tricuspid valve replacement September 2018 at [facility]. As per previous physicians note her records officer at at [facility] is aware of this admission. Presented to ED with dull retrosternal chest pain which has been present since valve replacement. Was a started started on IV vancomycin by Dr. Bowen hospitalist at [facility]. 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 [facility] on regional diversion at the admission time and was admitted here at [facility]. 05/21/2019. TTE LVEF 60%. No thrombus or vegetations noted. Severe tricuspid regurgitation. RSVP 48 to 53 mmHg.05/27/2019 Started on empiric broad-spectrum IV antibiotics. PICC line placed on 05/22/2018 on the left basilic vein. PICC line removed 06/14/2019 as per ID recommendation. Please refer to note. Tip was cultured which came back negative. Multiple positive blood cultures for pseudomonas aeruginosa. Last negative blood culture 05/31/2019. Last negative blood culture 05/31/2019. Day 23 of 56 days. Expected completion date 07/30/2019. Day 25 IV cefepime. Day 13 Ciprofloxacin 750 mg p.o. twice daily. Day 31 IV antibiotics. Received 10 days of IV levofloxacin. Switch to ciprofloxacin IV as per ID recommendation. I have been informed that [facility] will be able to do SANJU starting early June. Patient has stable and receiving IV antibiotics SANJU can wait until early June if not will call [facility] again for transfer for SANJU. 06/09/2019. Infectious disease consulted. Recommendations noted. Please refer to note. Unfortunately patient has a drug abuse and could not be sent home on IV antibiotics. 07/03/2019-patient has endocarditis not a candidate to go home with an IV antibiotic therapy. Patient may need a SANJU this week. pt is presently on IV cefepime. 07/04/2019-patient has history of endocarditis on IV antibiotic therapy plan for SANJU next week. Patient is presently-IV cefepime and p.o. ciprofloxacin. 07/05/2019-patient is receiving IV cephapirin and p.o. ciprofloxacin for endocarditis possible SANJU next week. pt patient is going to complete the antibiotic course on July 30. 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 Status post tricuspid valve replacement September 2018 at [facility]. Presented to ED with dull retrosternal chest pain which has been present since valve replacement. Was a started started on IV vancomycin by Dr. Bowen hospitalist at [facility]. 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 [facility] on regional diversion at the admission time and was admitted here at [facility]. 05/21/2019. TTE LVEF 60%. No thrombus or vegetations noted. Severe tricuspid regurgitation. RSVP 48 to 53 mmHg.05/27/2019 Started on empiric broad-spectrum IV antibiotics. PICC line placed on 05/22/2018 on the left basilic vein. PICC line removed on 06/14/2019 as per ID recommendation. PICC line tip sent to culture. Multiple positive blood cultures for pseudomonas aeruginosa. Last negative blood culture 05/31/2019. Plan as per #1 07/04/2019-blood cultures came back positive for Pseudomonas aeruginosa on 9 . Latest blood cultures are negative. As per ID recommendations PICC line was removed on 912. As listed above latest cultures are negative. Plan is to continue the present management. 07/05/2019-latest blood cultures from 06/25 2019 are negative. Previous cultures are positive for Pseudomonas aeruginosa. Presently on IV cefepime and p.o. Cipro. plan Is to continue the antibiotic therapy until July 30. (3) IV drug abuse Is this a current diagnosis for this admission?: Yes Plan: Persistent IV drug abuse. Unfortunately patient seems to be abusing drugs while in the hospital. At times patient seems to be too sleepy. UDS on 06/08/2019 for back positive for opiates. Which was confirmed as morphine. Only on Subutex and tramadol in the hospital. Patient was advised on abstinence from recreational drug abuse. Currently on on Subutex since 05/27/2019 and tramadol. Was encouraged to rehab admission one day before discharge. 06/24/2019-patient has history of IV drug abuse. Counseling was provided today. (4) Abdominal pain Qualifiers: Abdominal location: generalized Qualified Code(s): R10.84 - Generalized abdominal pain Is this a current diagnosis for this admission?: Yes (5) Anemia Qualifiers: Anemia type: iron deficiency Iron deficiency anemia type: unspecified iron deficiency Qualified Code(s): D50.9 - Iron deficiency anemia, unspecified Is this a current diagnosis for this admission?: Yes Plan: Microcytic. Likely combination of anemia of chronic disease and iron deficiency anemia. Denies any easy bleeding, nosebleeds, hematemesis, hemoptysis, hematochezia, vaginal bleeding or melena. 05/30/2019. Iron panel. Serum iron 18.8, TIBC 270, saturation 7%, ferritin 213, folate 5.53, B12 folate 306, 06/08/2019. Status post 2 PRBC transfusion. Daily H&H, monitor for bleeding, supportive transfusions, ferrous sulfate. 06/24/2019-patient received 2 units of PRBC. During the hospital stay. Latest hemoglobin is 11.4. Stable. 07/05/2019-patient hemoglobin is stable around 10. Plan is to continue to closely monitor the CBC. 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 Status post tricuspid valve replacement September 2018 at [facility]. As per previous physicians note her records officer at [facility] is aware of this admission. Presented to ED with dull retrosternal chest pain which has been present since valve replacement. Was a started started on IV vancomycin by Dr. Bowen hospitalist at [facility]. 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 [facility] on regional diversion at the admission time and was admitted here at [facility]. 05/21/2019. TTE LVEF 60%. No thrombus or vegetations noted. Severe tricuspid regurgitation. RSVP 48 to 53 mmHg.05/27/2019 Started on empiric broad-spectrum IV antibiotics. PICC line placed on 05/22/2018 on the left basilic vein. PICC line removed 06/14/2019 as per ID recommendation. Please refer to note. Tip was cultured which came back negative. Multiple positive blood cultures for pseudomonas aeruginosa. Last negative blood culture 05/31/2019 Last negative blood culture 05/31/2019. Day 23 of 56 days. Expected completion date 07/30/2019. Day 25 IV cefepime. Day 13 Ciprofloxacin 750 mg p.o. twice daily. Day 31 IV antibiotics. Received 10 days of IV levofloxacin. Switch to ciprofloxacin IV as per ID recommendation. I have been informed that [facility] will be able to do SANJU starting early June. Patient has stable and receiving IV antibiotics SANJU can wait until early June if not will call [facility] again for transfer for SANJU. 06/09/2019. Infectious disease consulted. Recommendations noted. Please refer to note. Unfortunately patient has a drug abuse and could not be sent home on IV antibiotics. 06/24/2019-patient has endocarditis not a candidate to go home with an IV antibiotic therapy. Patient may need a SANJU this week. pt is presently on IV cefepime. 06/25/2019-patient has history of endocarditis secondary to percent 10 to use of IV drug abuse. Admitted with fever and chills. Blood cultures came back positive for pseudomonas aeruginosa latest blood cultures are negative. Patient is presently on cefepime and p.o. ciprofloxacin. Plan is to arrange for SANJU after 01 July at this hospital. Last night patient has no fever but Reiger's and chills. To closely monitor her medical condition plan is to move her to [facility] today. 06/26/2019-unfortunately the SANJU service is not available yet. The patient will continue her antibiotic therapy. She will need 6 weeks from the first set of blood cultures that were no growth. 06/27/2019-no changes to the treatment plan. 06/28/2019-she is complaining of plantar fasciitis. Achilles tendons are nontender and appear intact. Will monitor while on quinolone therapy. 06/29/2019-no change in therapy at this time. Expected end date July 30. 07/02/2019-patient is admitted with endocarditis now the plan is to arrange for SANJU after 09 July here at [place]. In the meantime plan is to continue IV antibiotic therapy. Sedated 32 of IV antibiotic therapy patient is presently on IV cefepime and Cipro floxacillin 750 mg p.o. twice a day. 07/03/2019-patient is scheduled for SANJU after July 10. Presently on IV cefepime and p.o. Cipro floxacillin as per ID recommendations. She is going to complete the antibiotic therapy on July 30. 07/04/2019-patient admitted with endocarditis on IV cefepime and p.o. Cipro floxacillin. Plan to arrange for SANJU next week. 07/05/2019-patient is on IV cefepime, p.o. Cipro floxacillin and antibiotic course will be finished on July 30. Possible SANJU next week. 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 Status post tricuspid valve replacement September 2018 at [facility]. Presented to ED with dull retrosternal chest pain which has been present since valve replacement. Was a started started on IV vancomycin by Dr. Bowen hospitalist at [facility]. 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 [facility] on regional diversion at the admission time and was admitted here at [facility]. 05/21/2019. TTE LVEF 60%. No thrombus or vegetations noted. Severe tricuspid regurgitation. RSVP 48 to 53 mmHg.05/27/2019 Started on empiric broad-spectrum IV antibiotics. PICC line placed on 05/22/2018 on the left basilic vein. PICC line removed on 06/14/2019 as per ID recommendation. PICC line tip sent to culture. Multiple positive blood cultures for pseudomonas aeruginosa. Last negative blood culture 05/31/2019. Plan as per #1 06/24/2019-blood cultures came back positive for Pseudomonas aeruginosa on 05 29. Latest blood cultures are negative. As per ID recommendations PICC line was removed on . As listed above latest cultures are negative. Plan is to continue the present management. 06/25/2019-blood cultures from 05/29/2019 came back positive for Pseudomonas aeruginosa as per ID recommendations patient is on p.o. Cipro floxacillin and IV cephapirin. Waiting for a SANJU procedure after 01 July. Cultures are negati ve. Latest 06/26/2019-multiple repeated blood cultures are negative. Continue current treatment regimen. 06/29/2019-as above 07/02/2019-latest blood cultures from 06/25/2019 are negative. 07/04/2019-latest blood cultures are negative. Patient has endocarditis. History of IV drug abuse. SANJU is scheduled for next week. Plan is to continue IV cefepime and p.o. Cipro floxacillin. 07/05/2019-latest blood cultures are negative from 06/25 2019. She had a history of IV drug abuse admitted for endocarditis. Possible SANJU next week. Plan is to continue cefepime and p.o. ciprofloxacin. (3) IV drug abuse Is this a current diagnosis for this admission?: Yes Plan: Persistent IV drug abuse. Unfortunately patient seems to be abusing drugs while in the hospital. At times patient seems to be too sleepy. UDS on 06/08/2019 for back positive for opiates. Which was confirmed as morphine. Only on Subutex and tramadol in the hospital. Patient was advised on abstinence from recreational drug abuse. Currently on on Subutex since 05/27/2019 and tramadol. Was encouraged to rehab admission one day before discharge. 06/24/2019-patient has history of IV drug abuse. Counseling was provided today. 06/26/2019-continue Suboxone 06/29/2019-suspected self injection last night. Patient reports tachycardia was from using vape. Had a long discussion about compliance with hospital rules and treatment regimen. 07/02/2019-no complaints of any pains today. She is receiving Subutex and tramadol in the hospital. (4) Abdominal pain Qualifiers: Abdominal location: generalized Qualified Code(s): R10.84 - Generalized abdominal pain Is this a current diagnosis for this admission?: Yes Plan: Resolved. CT abdomen pelvis 06/06/2019 found no acute findings except for severe constipation. History of cholecystectomy. History of hepatitis C. History of hepatic steatosis. Lipase WNL. Continue beta-blockers and supportive measures. Continue bowel regimen. Encourage ambulation and high-fiber diet. 06/24/2019-patient came with complaints of abdominal pain. Which was resolved. Lipase levels are within normal limits. 06/26/2019-the patient does have history of hepatitis C. Since the rapid response 2 nights ago the patient exhibits increased LFTs. She does have a history of hepatitis C. I will recheck the liver enzymes and if they continue to increase I will obtain imaging of the abdomen. 06/27/2019-we discussed the elevated liver enzymes. She cannot remember when her last evaluation for hepatitis C was. I will check a hep C RNA level. We will continue to monitor the chemistries. 06/28/2019-liver enzymes are slowly improving. Unsure of the spike. Could be related to long-term antibiotics. We will continue to monitor. 07/02/19-patient has history of cholecystectomy, history of hepatitis C, history of hepatic steatosis lipase levels are within normal limits recently no complaints of abdominal pains. (5) Anemia Qualifiers: Anemia type: iron deficiency Iron deficiency anemia type: unspecified iron deficiency Qualified Code(s): D50.9 - Iron deficiency anemia, unspecified Is this a current diagnosis for this admission?: Yes Plan: Microcytic. Likely combination of anemia of chronic disease and iron deficiency anemia. Denies any easy bleeding, nosebleeds, hematemesis, hemoptysis, hematochezia, vaginal bleeding or melena. 05/30/2019. Iron panel. Serum iron 18.8, TIBC 270, saturation 7%, ferritin 213, folate 5.53, B12 folate 306, 06/08/2019. Status post 2 PRBC transfusion. Daily H&H, monitor for bleeding, supportive transfusions, ferrous sulfate. 06/24/2019-patient received 2 units of PRBC. During the hospital stay. Latest hemoglobin is 11.4. Stable. 06/25/2019-patient received 2 units of PRBC during the hospital stay latest hemoglobin is 11.4 plan is to closely trend the hemoglobin on daily basis. 06/26/2019-continue to monitor hemoglobin. 07/02/2019-patient's low latest hemoglobin is 10.3 stable. #6 ) plantar fasciitis-the patient developed tenderness under the arch of the left foot. I had physical therapy see the patient. They believe it is plantar fasciitis. She is on quinolone therapy long-term. This can have an adverse effect on tendons. We will continue to monitor. Physical therapy provided exercise plan for the patient. 06/29/2019-patient reports increased pain. I have added IV Toradol as an anti- inflammatory and physical therapy is working with her. 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 This puts the stop date at approximately July 14. She should still have a SANJU once that service is finally organized and offered. Anemia-continue iron supplement Drug abuse-continue Subutex Neuropathy-continue Neurontin Plantar fasciitis-she is working with physical therapy. Toradol is available. Consider wrapping her foot for support. Pain management-avoid narcotics completely 7.hyperkalemia Potassium today is 5.5 patient refused to take Kayexalate. to Recheck the potassium levels later on this evening. 07/04/2019-patient's potassium today 6.6 to Kayexalate and dextrose along with insulin IV to bring the potassium down repeat the potassium levels this afternoon. 07/05/2019-patient serum potassium is 5.5 today came down from 6.6 she was given Kayexalate along with the D50 1 amp and 8 units of regular insulin IV plan is to repeat the dose of 1 amp D50 and 6 units of regular insulin IV. Patient refu sing Kayexalate.
[2019-07-05] MEDS ORDERED: DEXTROSE 50%-WATER 25 GM/50 ML DISP.SYRIN IV ONE (09:00)
[2019-07-05] MEDS ORDERED: INSULIN REG, HUMAN 100 UNIT/ML 3 ML VIAL (PYX) IV ONE (09:00)
[2019-07-05] MEDS: BUPRENORPHINE HCL 2 MG SUBLINGUAL TABLET SL SCH ×2 (10:31→21:22)
[2019-07-05] MEDS: MAGNESIUM OXIDE 400 MG TABLET PO SCH ×2 (10:32→17:39)
[2019-07-05] MEDS: LACTOBACILLUS ACIDOPHILUS 250 MG TAB PO SCH ×2 (10:32→17:39)
[2019-07-05] MEDS: TIZANIDINE HCL 4 MG TABLET PO PRN ×2 (10:32→19:35)
[2019-07-05] MEDS: METOPROLOL TARTRATE 25 MG TABLET PO SCH ×2 (10:32→21:17)
[2019-07-05] MEDS: FERROUS SULFATE 325 MG TABLET PO SCH (10:32)
[2019-07-05] MEDS: NORMAL SALINE 10 ML SDV (SCHEDULED) IV SCH ×2 (10:33→21:19)
[2019-07-05] MEDS: GABAPENTIN 300 MG CAPSULE PO SCH ×2 (10:33→21:18)
[2019-07-05] MEDS: CIPROFLOXACIN HCL 750 MG TABLET PO SCH ×2 (10:43→21:18)
[2019-07-05] MEDS: HEPARIN SOD (PORCINE) 5,000 UNIT/ML 1 ML VIAL SUBCUT SCH ×2 (10:43→21:18)
[2019-07-05] MEDS ORDERED: IBUPROFEN 800 MG TABLET PO ONE (19:30)
[2019-07-05] MEDS: ATORVASTATIN CALCIUM 40 MG TABLET PO SCH (21:17)
[2019-07-05] MEDS: QUETIAPINE FUMARATE 25 MG TABLET PO SCH (21:17)
[2019-07-06] MEDS: TIZANIDINE HCL 4 MG TABLET PO PRN ×3 (01:59→18:13)
[2019-07-06] MEDS: CEFEPIME 2 GM/D5W RTU 2 GM/50 ML RTUPB IV SCH ×3 (01:59→18:13)
[2019-07-06] MEDS: PANTOPRAZOLE SODIUM 40 MG TABLET.DR PO SCH (05:12)
[2019-07-06 05:37] LABS: ABSOLUTE EOSINOPHILS # (AUTO) 0.2 10^3/uL (0.0-0.6); ABSOLUTE LYMPHOCYTES (AUTO) 1.7 10^3/uL (0.5-4.7); ABSOLUTE MONOCYTES (AUTO) 0.8 10^3/uL (0.1-1.4); ABSOLUTE NEUT (AUTO) 5.5 10^3/uL (1.7-8.2); BASOPHILS % (AUTO) 0.4 % (0-2); EOSINOPHILS % (AUTO) 2.5 % (0-6); HEMATOCRIT 30.4 % (36.0-47.0); HEMOGLOBIN 9.9 g/dL (12.0-15.5); LYMPHOCYTES % (AUTO) 20.4 % (13-45); MEAN CORPUSCULAR HEMOGLOBIN 27.2 pg (27.0-33.4); MEAN CORPUSCULAR HGB CONC 32.6 g/dL (32.0-36.0); MEAN CORPUSCULAR VOLUME 84 fl (80-97); MONOCYTES % (AUTO) 9.6 % (3-13); PLATELET COUNT 213 10^3/uL (150-450); RED BLOOD COUNT 3.64 10^6/uL (3.72-5.28); RED CELL DISTRIBUTION WIDTH 17.4 % (11.5-14.0); SEGMENTED NEUTROPHILS % (AUTO) 67.1 % (42-78); TOTAL CELLS COUNTED % (AUTO) 100 %; WHITE BLOOD COUNT 8.3 10^3/uL (4.0-10.5)
[2019-07-06 05:47] LABS: ALBUMIN 3.2 g/dL (3.5-5.0); ALKALINE PHOSPHATASE 206 U/L (38-126); ANION GAP 9 (5-19); ASPARTATE AMINO TRANSFERASE 210 U/L (14-36); BILIRUBIN,DIRECT 0.2 mg/dL (0.0-0.4); BILIRUBIN,TOTAL 0.4 mg/dL (0.2-1.3); BLOOD UREA NITROGEN 25 mg/dL (7-20); CALCIUM 8.9 mg/dL (8.4-10.2); CARBON DIOXIDE 23 mmol/L (22-30); CHLORIDE 107 mmol/L (98-107); GLUCOSE 99 mg/dL (75-110); POTASSIUM 5.2 mmol/L (3.6-5.0); TOTAL PROTEIN 6.7 g/dL (6.3-8.2)
--- NOTE | 2019-07-06 08:19 | PDOC PROGRESS REPORT ---
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 She presents with dull retrosternal chest pain which has been present since valve replacement has developed fever and some shortness of breath prompting evaluation emergency room where she is found to have sepsis with hypotension, tachycardia, leukocytosis of 19,000, hypo-natremia hypomagnesemia hypo-kalemia and thrombocytopenia. She started on IV vancomycin and Dr. Bowen hospitalist at [facility] is consulted. 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 Subsequent cultures did not grow. [facility] is currently on regional diversion and are subsequently unable to accept her for transfer. She is referred to the hospitalist for admission. 06/04/2019. No acute events overnight. 06/05/2017. No acute events overnight. Denies any fever, chills, nausea, v omiting, diarrhea, constipation or any urinary symptoms. 06/06/2019. No acute events overnight. Continues to complain of chronic right upper quadrant abdominal pain. Denies any fever, chills, nausea, vomiting, diarrhea, constipation or any urinary symptoms. Patient is p.o. tolerant, ambulatory, having normal bowel and bladder movements. 06/07/2019. No acute events overnight. Significant improvement of abdominal pain after having a large bowel movement this morning. Patient is ambulatory, in no apparent distress, p.o. tolerant. Patient has been noted to have low blood pressure however she is asymptomatic. 06/08/2019. No acute events overnight, patient is comfortably sitting in bed, in no apparent distress, abdominal pain has improved significantly, ambulatory, p.o. tolerant, having normal bowel bladder movement, denies any fever, chills, nausea, vomiting, diarrhea, constipation or any urinary symptoms. Patient hemoglobin is 7.7 today denies any hematemesis, hemoptysis, melena, vaginal bleeding or any hematochezia. Stool guaiac has been negative. We will give 2 PRBC today. 06/09/2019. No acute events overnight. Comfortably sitting in bed enjoying her breakfast. In no apparent distress. Abdominal pain has resolved, ambulatory, having normal bladder and bowel movement. Denies any fever, chills, nausea, vomiting, diarrhea, constipation or any urinary symptoms. 06/14/2019. No acute events overnight. Comfortably sitting in bed eating ice chips, no apparent distress, alert oriented x3, denies any abdominal pain, ambulatory, p.o. tolerant, having normal bowel and bladder movements, denies any fever, chills, nausea, vomiting, diarrhea, or any urinary symptoms. Discussed with patient about the need for PICC line to come out as it was placed on 05/22/2019 and has had several positive blood cultures since then. As per ID recommendation will remove PICC line. 06/15/2019. No acute events overnight. Comfortably sitting in bed enjoying her breakfast. Alert oriented x3, denies any fever, chills, nausea, vomiting, diarrhea, constipation or any urinary symptoms. PICC line removed on 06/14/2019. PICC line tip has been sent to culture. 06/16/2019. No acute events overnight. Comfortably sitting in bed enjoying her breakfast. Alert oriented x3, denies any fever, chills, nausea, vomiting, diarrhea, constipation or any urinary symptoms. 06/17/2018. No acute events overnight. Resting in bed. Complaining bed. Complaining of chronic back pain, alert oriented x3, denies any fever, chills, nausea, vomiting, diarrhea, constipation or any urinary symptoms. 06/18/2019. No acute events overnight. Comfortably sitting in bed, enjoying her breakfast, back pain has improved since being started on Percocet, denies any fever, chills, nausea, vomiting, diarrhea, constipation or any urinary symptoms. P.o. tolerant, ambulatory, having normal bowel bladder movement. 06/19/2019. No acute events overnight. Denies any fever, chills, nausea, vomiting, diarrhea, constipation or any urinary symptoms. P.o. tolerant, ambulatory, having normal bowel bladder movement. 06/20/2019. Complaining of having nightmares overnight, could not get a good night sleep, back pain is improving with tizanidine and Percocet, denies any fever, chills, nausea, shortness of breath, diarrhea or any constipation. P.o. tolerant, ambulatory having normal bladder and bowel movements. 06/21/2019. No acute events overnight. Denies any fever, chills, nausea, shortness of breath, diarrhea or any constipation. P.o. tolerant, ambulatory having normal bladder and bowel movements. 06/22/2019. No acute events overnight. Denies any fever, chills, nausea, shortness of breath, diarrhea or any constipation. P.o. tolerant, ambulatory having normal bladder and bowel movements. 06/23/2019. No acute events overnight, patient is sitting in bed, pleasant, enjoying her breakfast, lower back pain is improving, denies any ,nausea, vomiting, diarrhea, constipation or any urinary symptoms. Has been refusing her docusate, Cymbalta, pantoprazole and was seems to be discontinued as Cymbalta makes her very anxious. 06/24/2019-no acute events in the last 24 hours. Afebrile. Patient is com fortable in the bed talking to the family members on the phone. 06/25/2019-response was called last night patient found to be shivering associated with chills. Blood pressure was extremely elevated. Patient was given Motrin and repeat blood cultures was done. Patient stable this morning. To closely monitor her medical condition plan is to move her from medical floor to IMCU today. Patient denies any complaints. Alert and awake communicating well. 07/01/2019. No acute events overnight, patient comfortably resting in bed in no apparent distress, still complaining of chronic back pain, was to be placed back on Percocet, tizanidine helping, denies any fever, chills, nausea, vomiting, diarrhea, constipation or any urinary symptoms. Reporting that her plantar fasciitis has totally resolved. 07/02/2019-no acute events in the last 24 hours. Afebrile. She is scheduled for SANJU after the of this month at this facility. Meantime will continue the antibiotic therapy until August 02 as per ID. Latest blood cultures are negative. 07/03/2019-no acute events in the last 24 hours. Patient is afebrile. Serum potassium came back 5.5 plan to give Kayexalate with the patient is refusing. 07/04/2019-serum potassium level 6.6 today. Yesterday's 5.5 she refused to take Kayexalate yesterday. After long discussion she agreed to take Kayexalate and we can to repeat the potassium levels this afternoon. pt Complaints of not feeling well requesting 1 extra dose of Percocet. 07/05/2019-serum potassium came down to 5.[address] her on low potassium diet and to give D50 1 ampoule along with 6 units of regular insulin IV. No acute events in the last 24 hours. Afebrile. Plan is to continue iv cefepime I am and p.o. Cipro floxacillin for endocarditis. She is going to have a SANJU next week. 07/06/2019-no acute events in the last 24 hours. Patient is afebrile. To start her on low potassium diet today. Serum potassium is 5.2. Reason For Visit: IV DRUG ABUSE,SEPSIS,ENDOCARDITIS Physical Exam Vital Signs: Temp Pulse Resp BP Pulse Ox 97.7 F 63 16 99/50 L 100 07/06/19 03:06 07/06/19 03:06 07/05/19 23:54 07/06/19 03:06 07/06/19 03:06 Intake & Output 07/05/19 07/06/19 07/07/19 06:59 06:59 06:59 Intake Total 1072 1576 Balance 1072 1576 Weight 91.3 kg 90.5 kg General appearance: PRESENT: no acute distress, well-developed Head exam: PRESENT: atraumatic Eye exam: PRESENT: PERRLA Mouth exam: PRESENT: dry mucosa Teeth exam: PRESENT: poor dentation Neck exam: ABSENT: carotid bruit, JVD, lymphadenopathy, thyromegaly Respiratory exam: PRESENT: decreased breath sounds Cardiovascular exam: PRESENT: RRR. ABSENT: diastolic murmur, rubs, systolic murmur GI/Abdominal exam: PRESENT: normal bowel sounds, soft. ABSENT: distended, guarding, mass, organolmegaly, rebound, tenderness Rectal exam: PRESENT: deferred Extremities exam: PRESENT: full ROM. ABSENT: calf tenderness, clubbing, pedal edema Neurological exam: PRESENT: alert, awake, oriented to person, oriented to place, oriented to time, oriented to situation, CN II-XII grossly intact. ABSENT: motor sensory deficit Psychiatric exam: PRESENT: appropriate affect, normal mood. ABSENT: homicidal ideation, suicidal ideation Results Laboratory Results: 07/06/19 05:15 07/06/19 05:15 07/06/19 07/06/19 05:15 05:15 WBC 8.3 RBC 3.64 L Hgb 9.9 L Hct 30.4 L MCV 84 MCH 27.2 MCHC 32.6 RDW 17.4 H Plt Count 213 Seg Neutrophils % 67.1 Sodium 138.7 Potassium 5.2 H Chloride 107 Carbon Dioxide 23 Anion Gap 9 BUN 25 H Creatinine 0.82 Est GFR ( Amer) > 60 Glucose 99 Calcium 8.9 Magnesium 1.6 Total Bilirubin 0.4 AST 210 H Alkaline Phosphatase 206 H Total Protein 6.7 Albumin 3.2 L 05/21/19 05/22/19 05/22/19 23:07 02:06 11:00 Creatine Kinase CK-MB (CK-2) Troponin I 0.098 0.098 0.070 NT-Pro-B Natriuret Pep 05/22/19 05/22/19 05/22/19 14:00 14:35 20:04 Creatine Kinase CK-MB (CK-2) Troponin I Cancelled 0.060 0.037 NT-Pro-B Natriuret Pep 05/28/19 05/28/19 06/02/19 00:15 00:15 00:20 Creatine Kinase < 20 L < 20 L CK-MB (CK-2) 0.49 Troponin I 0.077 NT-Pro-B Natriuret Pep 06/02/19 06/02/19 06/02/19 00:20 06:15 06:15 Creatine Kinase < 20 L CK-MB (CK-2) 1.53 1.39 Troponin I 0.194 0.171 NT-Pro-B Natriuret Pep 06/02/19 06/02/19 06/28/19 13:30 13:30 03:40 Creatine Kinase < 20 L 26 L CK-MB (CK-2) 1.68 Troponin I 0.175 NT-Pro-B Natriuret Pep 4000 H Impressions: Chest X-Ray 05/21/19 23:04 IMPRESSION: 1. No acute pulmonary findings. 2. Previous sternotomy Abdomen Ultrasound 05/28/19 00:00 IMPRESSION: Mild splenomegaly. No acute findings otherwise. Abdomen/Pelvis CT 06/06/19 00:00 IMPRESSION: 1. Gastric distention and debris. Ileus. Constipation. 2. Normal appendix. No acute abdominopelvic abnormality. Guidance Fluoroscopy 06/23/19 00:00 IMPRESSION: SUCCESSFUL PLACEMENT OF A 5 FR DUAL LUMEN 38 CM PICC IN THE LEFT BASILIC VEIN. Interventional Vascular Procedure 06/23/19 00:00 IMPRESSION: SUCCESSFUL PLACEMENT OF A 5 FR DUAL LUMEN 38 CM PICC IN THE LEFT BASILIC VEIN. PICC Line Insertion 06/23/19 00:00 IMPRESSION: SUCCESSFUL PLACEMENT OF A 5 FR DUAL LUMEN 38 CM PICC IN THE LEFT BASILIC VEIN. Foot X-Ray 06/29/19 00:00 IMPRESSION: NEGATIVE STUDY OF THE LEFT FOOT. NO EXPLANATION FOR PAIN. Assessment and Plan - Diagnosis (1) Endocarditis Qualifiers: Endocarditis type: infective Is this a current diagnosis for this admission?: Yes (2) Bacteremia due to Pseudomonas Is this a current diagnosis for this admission?: Yes (3) IV drug abuse Is this a current diagnosis for this admission?: Yes (4) Abdominal pain Qualifiers: Abdominal location: generalized Qualified Code(s): R10.84 - Generalized abdominal pain Is this a current diagnosis for this admission?: Yes (5) Anemia Qualifiers: Anemia type: iron deficiency Iron deficiency anemia type: unspecified iron deficiency Qualified Code(s): D50.9 - Iron deficiency anemia, unspecified Is this a current diagnosis for this admission?: Yes - Plan Summary Summary: (1) Endocarditis Qualifiers: Endocarditis type: infective Is this a current diagnosis for this admission?: Yes Plan: 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 Status post tricuspid valve replacement September 2018 at [facility]. 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 Presented to ED with dull retrosternal chest pain which has been present since valve replacement. Was a started started on IV vancomycin by Dr. Bowen hospitalist at [facility]. 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 [facility] on regional diversion at the admission time and was admitted here at [facility]. 05/21/2019. TTE LVEF 60%. No thrombus or vegetations noted. Severe tricuspid regurgitation. RSVP 48 to 53 mmHg.05/27/2019 Started on empiric broad-spectrum IV antibiotics. PICC line placed on 05/22/2018 on the left basilic vein. PICC line removed 06/14/2019 as per ID recommendation. Please refer to note. Tip was cultured which came back negative. Multiple positive blood cultures for pseudomonas aeruginosa. Last negative blood culture 05/31/2019 Last negative blood culture 05/31/2019. Day 23 of 56 days. Expected completion date 07/30/2019. Day 25 IV cefepime. Day 13 Ciprofloxacin 750 mg p.o. twice daily. Day 31 IV antibiotics. Received 10 days of IV levofloxacin. Switch to ciprofloxacin IV as per ID recommendation. I have been informed that [facility] will be able to do SANJU starting early June. Patient has stable and receiving IV antibiotics SANJU can wait until early June if not will call [facility] again for transfer for SANJU. 06/09/2019. Infectious disease consulted. Recommendations noted. Please refer to note. Unfortunately patient has a drug abuse and could not be sent home on IV antibiotics. 06/24/2019-patient has endocarditis not a candidate to go home with an IV antibiotic therapy. Patient may need a SANJU this week. pt is presently on IV cefepime. 06/25/2019-patient has history of endocarditis secondary to percent 10 to use of IV drug abuse. Admitted with fever and chills. Blood cultures came back positive for pseudomonas aeruginosa latest blood cultures are negative. Patient is presently on cefepime and p.o. ciprofloxacin. Plan is to arrange for SANJU after 01 July at this hospital. Last night patient has no fever but Reiger's and chills. To closely monitor her medical condition plan is to move her to [facility] today. 06/26/2019-unfortunately the SANJU service is not available yet. The patient will continue her antibiotic therapy. She will need 6 weeks from the first set of blood cultures that were no growth. 06/27/2019-no changes to the treatment plan. 06/28/2019-she is complaining of plantar fasciitis. Achilles tendons are nontender and appear intact. Will monitor while on quinolone therapy. 06/29/2019-no change in therapy at this time. Expected end date July 30. 07/02/2019-patient is admitted with endocarditis now the plan is to arrange for SANJU after 09 July here at [place]. In the meantime plan is to continue IV antibiotic therapy. Sedated 32 of IV antibiotic therapy patient is presently on IV cefepime and Cipro floxacillin 750 mg p.o. twice a day. 07/03/2019-patient is scheduled for SANJU after July 10. Presently on IV cefepime and p.o. Cipro floxacillin as per ID recommendations. She is going to complete the antibiotic therapy on July 30. 07/04/2019-patient admitted with endocarditis on IV cefepime and p.o. Cipro floxacillin. Plan to arrange for SANJU next week. 07/05/2019-patient is on IV cefepime, p.o. Cipro floxacillin and antibiotic course will be finished on July 30. Possible SANJU next week. 07/06/2019-patient is presently on IV cefepime, p.o. Cipro floxacillin for endocarditis. Plan to have a SANJU next week. Plan is to continue IV antibiotic therapy until #60. 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 Status post tricuspid valve replacement September 2018 at [facility]. Presented to ED with dull retrosternal chest pain which has been present since valve replacement. Was a started started on IV vancomycin by Dr. Bowen hospitalist at [facility]. 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 [facility] on regional diversion at the admission time and was admitted here at [facility]. 05/21/2019. TTE LVEF 60%. No thrombus or vegetations noted. Severe tricuspid regurgitation. RSVP 48 to 53 mmHg.05/27/2019 Started on empiric broad-spectrum IV antibiotics. PICC line placed on 05/22/2018 on the left basilic vein. PICC line removed on 06/14/2019 as per ID recommendation. PICC line tip sent to culture. Multiple positive blood cultures for pseudomonas aeruginosa. Last negative blood culture 05/31/2019. Plan as per #1 06/24/2019-blood cultures came back positive for Pseudomonas aeruginosa on 05 29. Latest blood cultures are negative. As per ID recommendations PICC line was removed on . As listed above latest cultures are negative. Plan is to continue the present management. 06/25/2019-blood cultures from 05/29/2019 came back positive for Pseudomonas aeruginosa as per ID recommendations patient is on p.o. Cipro floxacillin and IV cephapirin. Waiting for a SANJU procedure after 01 July. Cultures are negative. Latest 06/26/2019-multiple repeated blood cultures are negative. Continue current treatment regimen. 06/29/2019-as above 07/02/2019-latest blood cultures from 06/25/2019 are negative. 07/04/2019-latest blood cultures are negative. Patient has endocarditis. History of IV drug abuse. SANJU is scheduled for next week. Plan is to continue IV cefepime and p.o. Cipro floxacillin. 07/05/2019-latest blood cultures are negative from 06/25 2019. She had a history of IV drug abuse admitted for endocarditis. Possible SANJU next week. Plan is to continue cefepime and p.o. ciprofloxacin. 07/06/2019-latest blood cultures are negative. Prior blood cultures are positive for Pseudomonas aeruginosa and patient getting treatment for endocarditis. For possible SANJU next week. Plan is to continue antibiotic therapy until July 30. (3) IV drug abuse Is this a current diagnosis for this admission?: Yes Plan: Persistent IV drug abuse. Unfortunately patient seems to be abusing drugs while in the hospital. At times patient seems to be too sleepy. UDS on 06/08/2019 for back positive for opiates. Which was confirmed as morphine. Only on Subutex and tramadol in the hospital. Patient was advised on abstinence from recreational drug abuse. Currently on on Subutex since 05/27/2019 and tramadol. Was encouraged to rehab admission one day before discharge. 06/24/2019-patient has history of IV drug abuse. Counseling was provided today. 06/26/2019-continue Suboxone 06/29/2019-suspected self injection last night. Patient reports tachycardia was from using vape. Had a long discussion about compliance with hospital rules and treatment regimen. 07/02/2019-no complaints of any pains today. She is receiving Subutex and tramadol in the hospital. (4) Abdominal pain Qualifiers: Abdominal location: generalized Qualified Code(s): R10.84 - Generalized abdominal pain Is this a current diagnosis for this admission?: Yes Plan: Resolved. CT abdomen pelvis 06/06/2019 found no acute findings except for severe constipation. History of cholecystectomy. History of hepatitis C. History of hepatic steatosis. Lipase WNL. Continue beta-blockers and supportive measures. Continue bowel regimen. Encourage ambulation and high-fiber diet. 06/24/2019-patient came with complaints of abdominal pain. Which was resolved. Lipase levels are within normal limits. 06/26/2019-the patient does have history of hepatitis C. Since the rapid response 2 nights ago the patient exhibits increased LFTs. She does have a history of hepatitis C. I will recheck the liver enzymes and if they continue to increase I will obtain imaging of the abdomen. 06/27/2019-we discussed the elevated liver enzymes. She cannot remember when her last evaluation for hepatitis C was. I will check a hep C RNA level. We will continue to monitor the chemistries. 06/28/2019-liver enzymes are slowly improving. Unsure of the spike. Could be related to long-term antibiotics. We will continue to monitor. 07/02/19-patient has history of cholecystectomy, history of hepatitis C, history of hepatic steatosis lipase levels are within normal limits recently no complaints of abdominal pains. (5) Anemia Qualifiers: Anemia type: iron deficiency Iron deficiency anemia type: unspecified iron deficiency Qualified Code(s): D50.9 - Iron deficiency anemia, unspecified Is this a current diagnosis for this admission?: Yes Plan: Microcytic. Likely combination of anemia of chronic disease and iron deficiency anemia. Denies any easy bleeding, nosebleeds, hematemesis, hemoptysis, hematochezia, vaginal bleeding or melena. 05/30/2019. Iron panel. Serum iron 18.8, TIBC 270, saturation 7%, ferritin 213, folate 5.53, B12 folate 306, 06/08/2019. Status post 2 PRBC transfusion. Daily H&H, monitor for bleeding, supportive transfusions, ferrous sulfate. 06/24/2019-patient received 2 units of PRBC. During the hospital stay. Latest hemoglobin is 11.4. Stable. 06/25/2019-patient received 2 units of PRBC during the hospital stay latest hemoglobin is 11.4 plan is to closely trend the hemoglobin on daily basis. 06/26/2019-continue to monitor hemoglobin. 07/02/2019-patient's low latest hemoglobin is 10.3 stable. #6 ) plantar fasciitis-the patient developed tenderness under the arch of the left foot. I had physical therapy see the patient. They believe it is plantar fasciitis. She is on quinolone therapy long-term. This can have an adverse effect on tendons. We will continue to monitor. Physical therapy provided exercise plan for the patient. 06/29/2019-patient reports increased pain. I have added IV Toradol as an anti- inflammatory and physical therapy is working with her. 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 This puts the stop date at approximately July 14. She should still have a SANJU once that service is finally organized and offered. Anemia-continue iron supplement Drug abuse-continue Subutex Neuropathy-continue Neurontin Plantar fasciitis-she is working with physical therapy. Toradol is available. Consider wrapping her foot for support. Pain management-avoid narcotics completely 7.hyperkalemia Potassium today is 5.5 patient refused to take Kayexalate. to Recheck the potassium levels later on this evening. 07/04/2019-patient's potassium today 6.6 to Kayexalate and dextrose along with insulin IV to bring the potassium down repeat the potassium levels this afternoon. 07/05/2019-patient serum potassium is 5.5 today came down from 6.6 she was given Kayexalate along with the D50 1 amp and 8 units of regular insulin IV plan is to repeat the dose of 1 amp D50 and 6 units of regular insulin IV. Patient refusing Kayexalate. 07/06/2019-serum potassium is persistently high to start her on low potassium diet from today.
[2019-07-06] MEDS: FERROUS SULFATE 325 MG TABLET PO SCH (10:50)
[2019-07-06] MEDS: LACTOBACILLUS ACIDOPHILUS 250 MG TAB PO SCH ×2 (10:50→18:13)
[2019-07-06] MEDS: METOPROLOL TARTRATE 25 MG TABLET PO SCH ×2 (10:50→21:22)
[2019-07-06] MEDS: GABAPENTIN 300 MG CAPSULE PO SCH ×2 (10:50→21:22)
[2019-07-06] MEDS: MAGNESIUM OXIDE 400 MG TABLET PO SCH ×2 (10:50→18:13)
[2019-07-06] MEDS: CIPROFLOXACIN HCL 750 MG TABLET PO SCH ×2 (10:51→21:22)
[2019-07-06] MEDS: BUPRENORPHINE HCL 2 MG SUBLINGUAL TABLET SL SCH ×2 (10:51→21:22)
[2019-07-06] MEDS: HEPARIN SOD (PORCINE) 5,000 UNIT/ML 1 ML VIAL SUBCUT SCH ×2 (10:52→21:25)
[2019-07-06] MEDS: NORMAL SALINE 10 ML SDV (SCHEDULED) IV SCH ×2 (10:53→21:23)
[2019-07-06] MEDS: PROMETHAZINE HCL 25 MG TABLET PO PRN (12:14)
[2019-07-06] MEDS: ATORVASTATIN CALCIUM 40 MG TABLET PO SCH (21:22)
[2019-07-06] MEDS: QUETIAPINE FUMARATE 25 MG TABLET PO SCH (21:22)
[2019-07-07] MEDS: CEFEPIME 2 GM/D5W RTU 2 GM/50 ML RTUPB IV SCH ×3 (01:12→17:55)
[2019-07-07] MEDS: TIZANIDINE HCL 4 MG TABLET PO PRN ×3 (02:32→21:40)
[2019-07-07] MEDS: PROMETHAZINE HCL 25 MG TABLET PO PRN ×2 (02:32→21:37)
[2019-07-07] MEDS: PANTOPRAZOLE SODIUM 40 MG TABLET.DR PO SCH (05:02)
--- NOTE | 2019-07-07 08:27 | PDOC PROGRESS REPORT ---
Subjective Progress Note for:: 07/07/19 Subjective:: 43 year old female with a past medical history of persistent IV drug use, endocarditis, status post tricuspid valve replacement September [address] [facility]. She presents with dull retrosternal chest pain which has been present since valve replacement has developed fever and some shortness of breath prompting evaluation emergency room where she is found to have sepsis with hypotension, tachycardia, leukocytosis of 19,000, hypo-natremia hypomagnesemia hypo-kalemia and thrombocytopenia. She started on IV vancomycin and Dr. Bowen hospitalist at [facility] is consulted. 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 Subsequent cultures did not grow. [facility] is currently on regional diversion and are subsequently unable to accept her for transfer. She is referred to the hospitalist for admission. 06/04/2019. No acute events overnight. 06/05/2017. No acute events overnight. Denies any fever, chills, nausea, v omiting, diarrhea, constipation or any urinary symptoms. 06/06/2019. No acute events overnight. Continues to complain of chronic right upper quadrant abdominal pain. Denies any fever, chills, nausea, vomiting, diarrhea, constipation or any urinary symptoms. Patient is p.o. tolerant, ambulatory, having normal bowel and bladder movements. 06/07/2019. No acute events overnight. Significant improvement of abdominal pain after having a large bowel movement this morning. Patient is ambulatory, in no apparent distress, p.o. tolerant. Patient has been noted to have low blood pressure however she is asymptomatic. 06/08/2019. No acute events overnight, patient is comfortably sitting in bed, in no apparent distress, abdominal pain has improved significantly, ambulatory, p.o. tolerant, having normal bowel bladder movement, denies any fever, chills, nausea, vomiting, diarrhea, constipation or any urinary symptoms. Patient hemoglobin is 7.7 today denies any hematemesis, hemoptysis, melena, vaginal bleeding or any hematochezia. Stool guaiac has been negative. We will give 2 PRBC today. 06/09/2019. No acute events overnight. Comfortably sitting in bed enjoying her breakfast. In no apparent distress. Abdominal pain has resolved, ambulatory, having normal bladder and bowel movement. Denies any fever, chills, nausea, vomiting, diarrhea, constipation or any urinary symptoms. 06/14/2019. No acute events overnight. Comfortably sitting in bed eating ice chips, no apparent distress, alert oriented x3, denies any abdominal pain, ambulatory, p.o. tolerant, having normal bowel and bladder movements, denies any fever, chills, nausea, vomiting, diarrhea, or any urinary symptoms. Discussed with patient about the need for PICC line to come out as it was placed on 05/22/2019 and has had several positive blood cultures since then. As per ID recommendation will remove PICC line. 06/15/2019. No acute events overnight. Comfortably sitting in bed enjoying her breakfast. Alert oriented x3, denies any fever, chills, nausea, vomiting, diarrhea, constipation or any urinary symptoms. PICC line removed on 06/14/2019. PICC line tip has been sent to culture. 06/16/2019. No acute events overnight. Comfortably sitting in bed enjoying her breakfast. Alert oriented x3, denies any fever, chills, nausea, vomiting, diarrhea, constipation or any urinary symptoms. 06/17/2018. No acute events overnight. Resting in bed. Complaining bed. Complaining of chronic back pain, alert oriented x3, denies any fever, chills, nausea, vomiting, diarrhea, constipation or any urinary symptoms. 06/18/2019. No acute events overnight. Comfortably sitting in bed, enjoying her breakfast, back pain has improved since being started on Percocet, denies any fever, chills, nausea, vomiting, diarrhea, constipation or any urinary symptoms. P.o. tolerant, ambulatory, having normal bowel bladder movement. 06/19/2019. No acute events overnight. Denies any fever, chills, nausea, vomiting, diarrhea, constipation or any urinary symptoms. P.o. tolerant, ambulatory, having normal bowel bladder movement. 06/20/2019. Complaining of having nightmares overnight, could not get a good night sleep, back pain is improving with tizanidine and Percocet, denies any fever, chills, nausea, shortness of breath, diarrhea or any constipation. P.o. tolerant, ambulatory having normal bladder and bowel movements. 06/21/2019. No acute events overnight. Denies any fever, chills, nausea, shortness of breath, diarrhea or any constipation. P.o. tolerant, ambulatory having normal bladder and bowel movements. 06/22/2019. No acute events overnight. Denies any fever, chills, nausea, shortness of breath, diarrhea or any constipation. P.o. tolerant, ambulatory having normal bladder and bowel movements. 06/23/2019. No acute events overnight, patient is sitting in bed, pleasant, enjoying her breakfast, lower back pain is improving, denies any ,nausea, vomiting, diarrhea, constipation or any urinary symptoms. Has been refusing her docusate, Cymbalta, pantoprazole and was seems to be discontinued as Cymbalta makes her very anxious. 06/24/2019-no acute events in the last 24 hours. Afebrile. Patient is com fortable in the bed talking to the family members on the phone. 06/25/2019-response was called last night patient found to be shivering associated with chills. Blood pressure was extremely elevated. Patient was given Motrin and repeat blood cultures was done. Patient stable this morning. To closely monitor her medical condition plan is to move her from medical floor to IMCU today. Patient denies any complaints. Alert and awake communicating well. 07/01/2019. No acute events overnight, patient comfortably resting in bed in no apparent distress, still complaining of chronic back pain, was to be placed back on Percocet, tizanidine helping, denies any fever, chills, nausea, vomiting, diarrhea, constipation or any urinary symptoms. Reporting that her plantar fasciitis has totally resolved. 07/02/2019-no acute events in the last 24 hours. Afebrile. She is scheduled for SANJU after the of this month at this facility. Meantime will continue the antibiotic therapy until August 02 as per ID. Latest blood cultures are negative. 07/03/2019-no acute events in the last 24 hours. Patient is afebrile. Serum potassium came back 5.5 plan to give Kayexalate with the patient is refusing. 07/04/2019-serum potassium level 6.6 today. Yesterday's 5.5 she refused to take Kayexalate yesterday. After long discussion she agreed to take Kayexalate and we can to repeat the potassium levels this afternoon. pt Complaints of not feeling well requesting 1 extra dose of Percocet. 07/05/2019-serum potassium came down to 5.[address] her on low potassium diet and to give D50 1 ampoule along with 6 units of regular insulin IV. No acute events in the last 24 hours. Afebrile. Plan is to continue iv cefepime I am and p.o. Cipro floxacillin for endocarditis. She is going to have a SANJU next week. 07/06/2019-no acute events in the last 24 hours. Patient is afebrile. To start her on low potassium diet today. Serum potassium is 5.2. 07/07/2019-no acute events in the last 24 hours. Patient states she is unable to sleep because of the numbers in the hands and feet requesting to increase the dose of Zanaflex and gabapentin from today. Reason For Visit: IV DRUG ABUSE,SEPSIS,ENDOCARDITIS Physical Exam Vital Signs: Temp Pulse Resp BP Pulse Ox 98.4 F 81 18 117/52 L 98 07/07/19 02:38 07/07/19 02:38 07/07/19 02:38 07/07/19 02:38 07/07/19 02:38 Intake & Output 07/06/19 07/07/19 07/08/19 06:59 06:59 06:59 Intake Total 1576 1452 Balance 1576 1452 Weight 90.5 kg 91.6 kg General appearance: PRESENT: no acute distress Head exam: PRESENT: atraumatic Eye exam: PRESENT: PERRLA Mouth exam: PRESENT: moist, tongue midline Teeth exam: PRESENT: poor dentation Neck exam: ABSENT: carotid bruit, JVD, lymphadenopathy, thyromegaly Respiratory exam: PRESENT: decreased breath sounds Cardiovascular exam: PRESENT: RRR. ABSENT: diastolic murmur, rubs, systolic murmur GI/Abdominal exam: PRESENT: normal bowel sounds, soft. ABSENT: distended, guarding, mass, organolmegaly, rebound, tenderness Rectal exam: PRESENT: deferred Extremities exam: PRESENT: full ROM. ABSENT: calf tenderness, clubbing, pedal edema Neurological exam: PRESENT: alert, awake, oriented to person, oriented to place, oriented to time, oriented to situation, CN II-XII grossly intact. ABSENT: motor sensory deficit Psychiatric exam: PRESENT: appropriate affect, normal mood. ABSENT: homicidal ideation, suicidal ideation Results Laboratory Results: 07/06/19 05:15 07/06/19 05:15 05/21/19 05/22/19 05/22/19 23:07 02:06 11:00 Creatine Kinase CK-MB (CK-2) Troponin I 0.098 0.098 0.070 NT-Pro-B Natriuret Pep 05/22/19 05/22/19 05/22/19 14:00 14:35 20:04 Creatine Kinase CK-MB (CK-2) Troponin I Cancelled 0.060 0.037 NT-Pro-B Natriuret Pep 05/28/19 05/28/19 06/02/19 00:15 00:15 00:20 Creatine Kinase < 20 L < 20 L CK-MB (CK-2) 0.49 Troponin I 0.077 NT-Pro-B Natriuret Pep 06/02/19 06/02/19 06/02/19 00:20 06:15 06:15 Creatine Kinase < 20 L CK-MB (CK-2) 1.53 1.39 Troponin I 0.194 0.171 NT-Pro-B Natriuret Pep 06/02/19 06/02/19 06/28/19 13:30 13:30 03:40 Creatine Kinase < 20 L 26 L CK-MB (CK-2) 1.68 Troponin I 0.175 NT-Pro-B Natriuret Pep 4000 H Impressions: Chest X-Ray 05/21/19 23:04 IMPRESSION: 1. No acute pulmonary findings. 2. Previous sternotomy Abdomen Ultrasound 05/28/19 00:00 IMPRESSION: Mild splenomegaly. No acute findings otherwise. Abdomen/Pelvis CT 06/06/19 00:00 IMPRESSION: 1. Gastric distention and debris. Ileus. Constipation. 2. Normal appendix. No acute abdominopelvic abnormality. Guidance Fluoroscopy 06/23/19 00:00 IMPRESSION: SUCCESSFUL PLACEMENT OF A 5 FR DUAL LUMEN 38 CM PICC IN THE LEFT BASILIC VEIN. Interventional Vascular Procedure 06/23/19 00:00 IMPRESSION: SUCCESSFUL PLACEMENT OF A 5 FR DUAL LUMEN 38 CM PICC IN THE LEFT BASILIC VEIN. PICC Line Insertion 06/23/19 00:00 IMPRESSION: SUCCESSFUL PLACEMENT OF A 5 FR DUAL LUMEN 38 CM PICC IN THE LEFT BASILIC VEIN. Foot X-Ray 06/29/19 00:00 IMPRESSION: NEGATIVE STUDY OF THE LEFT FOOT. NO EXPLANATION FOR PAIN. Assessment and Plan - Diagnosis (1) Endocarditis Qualifiers: Endocarditis type: infective Is this a current diagnosis for this admission?: Yes (2) Bacteremia due to Pseudomonas Is this a current diagnosis for this admission?: Yes (3) IV drug abuse Is this a current diagnosis for this admission?: Yes (4) Abdominal pain Qualifiers: Abdominal location: generalized Qualified Code(s): R10.84 - Generalized abdominal pain Is this a current diagnosis for this admission?: Yes (5) Anemia Qualifiers: Anemia type: iron deficiency Iron deficiency anemia type: unspecified iron deficiency Qualified Code(s): D50.9 - Iron deficiency anemia, unspecified Is this a current diagnosis for this admission?: Yes - Plan Summary Summary: (1) Endocarditis Qualifiers: Endocarditis type: infective Is this a current diagnosis for this admission?: Yes Plan: 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 Status post tricuspid valve replacement September [address] [facility]. 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 Presented to ED with dull retrosternal chest pain which has been present since valve replacement. Was a started started on IV vancomycin by Dr. Bowen hospitalist at [facility]. 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 [facility] on regional diversion at the admission time and was admitted here at [facility]. 05/21/2019. TTE LVEF 60%. No thrombus or vegetations noted. Severe tricuspid regurgitation. RSVP 48 to 53 mmHg.05/27/2019 Started on empiric broad-spectrum IV antibiotics. PICC line placed on 05/22/2018 on the left basilic vein. PICC line removed 06/14/2019 as per ID recommendation. Please refer to note. Tip was cultured which came back negative. Multiple positive blood cultures for pseudomonas aeruginosa. Last negative blood culture 05/31/2019 Last negative blood culture 05/31/2019. Day 23 of 56 days. Expected completion date 07/30/2019. Day 25 IV cefepime. Day 13 Ciprofloxacin 750 mg p.o. twice daily. Day 31 IV antibiotics. Received 10 days of IV levofloxacin. Switch to ciprofloxacin IV as per ID recommendation. I have been informed that [facility] will be able to do SNAJU starting early June. Patient has stable and receiving IV antibiotics SANJU can wait until early June if not will call [facility] again for transfer for SANJU. 06/09/2019. Infectious disease consulted. Recommendations noted. Please refer to note. Unfortunately patient has a drug abuse and could not be sent home on IV antibiotics. 06/24/2019-patient has endocarditis not a candidate to go home with an IV antibiotic therapy. Patient may need a SANJU this week. pt is presently on IV cefepime. 06/25/2019-patient has history of endocarditis secondary to percent 10 to use of IV drug abuse. Admitted with fever and chills. Blood cultures came back positive for pseudomonas aeruginosa latest blood cultures are negative. Patient is presently on cefepime and p.o. ciprofloxacin. Plan is to arrange for SANJU after 01 July at this hospital. Last night patient has no fever but Reiger's and chills. To closely monitor her medical condition plan is to move her to [facility] today. 06/26/2019-unfortunately the SANJU service is not available yet. The patient will continue her antibiotic therapy. She will need 6 weeks from the first set of blood cultures that were no growth. 06/27/2019-no changes to the treatment plan. 06/28/2019-she is complaining of plantar fasciitis. Achilles tendons are nontender and appear intact. Will monitor while on quinolone therapy. 06/29/2019-no change in therapy at this time. Expected end date July 30. 07/02/2019-patient is admitted with endocarditis now the plan is to arrange for SANJU after 09 July here at [facility]. In the meantime plan is to continue IV antibiotic therapy. Sedated 32 of IV antibiotic therapy patient is presently on IV cefepime and Cipro floxacillin 750 mg p.o. twice a day. 07/03/2019-patient is scheduled for SANJU after July 10. Presently on IV cefepime and p.o. Cipro floxacillin as per ID recommendations. She is going to complete the antibiotic therapy on July 30. 07/04/2019-patient admitted with endocarditis on IV cefepime and p.o. Cipro floxacillin. Plan to arrange for SANJU next week. 07/05/2019-patient is on IV cefepime, p.o. Cipro floxacillin and antibiotic course will be finished on July 30. Possible SANJU next week. 07/06/2019-patient is presently on IV cefepime, p.o. Cipro floxacillin for endocarditis. Plan to have a SANJU next week. Plan is to continue IV antibiotic therapy until #60. 07/07/2019-patient is presently on IV cefepime and p.o. Cipro floxacillin for endocarditis patient may go for a SANJU this week (2) Bacteremia due to Pseudomonas Is this a current diagnosis for this admission?: Yes Plan: 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 Status post tricuspid valve replacement September [address] [facility]. Presented to ED with dull retrosternal chest pain which has been present since valve replacement. Was a started started on IV vancomycin by Dr. Bowen hospitalist at [facility]. 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 [facility] on regional diversion at the admission time and was admitted here at [facility]. 05/21/2019. TTE LVEF 60%. No thrombus or vegetations noted. Severe tricuspid regurgitation. RSVP 48 to 53 mmHg.05/27/2019 Started on empiric broad-spectrum IV antibiotics. PICC line placed on 05/22/2018 on the left basilic vein. PICC line removed on 06/14/2019 as per ID recommendation. PICC line tip sent to culture. Multiple positive blood cultures for pseudomonas aeruginosa. Last negative blood culture 05/31/2019. Plan as per #1 06/24/2019-blood cultures came back positive for Pseudomonas aeruginosa on 05 29. Latest blood cultures are negative. As per ID recommendations PICC line was removed on . As listed above latest cultures are negative. Plan is to continue the present management. 06/25/2019-blood cultures from 05/29/2019 came back positive for Pseudomonas aeruginosa as per ID recommendations patient is on p.o. Cipro floxacillin and IV cephapirin. Waiting for a SANJU procedure after 01 July. Cultures are negative. Latest 06/26/2019-multiple repeated blood cultures are negative. Continue current treatment regimen. 06/29/2019-as above 07/02/2019-latest blood cultures from 06/25/2019 are negative. 07/04/2019-latest blood cultures are negative. Patient has endocarditis. History of IV drug abuse. SANJU is scheduled for next week. Plan is to continue IV cefepime and p.o. Cipro floxacillin. 07/05/2019-latest blood cultures are negative from 06/25 2019. She had a history of IV drug abuse admitted for endocarditis. Possible SANJU next week. Plan is to continue cefepime and p.o. ciprofloxacin. 07/06/2019-latest blood cultures are negative. Prior blood cultures are positive for Pseudomonas aeruginosa and patient getting treatment for endocarditis. For possible SANJU next week. Plan is to continue antibiotic therapy until July 30. 07/07/2019-initial cultures came back positive for Pseudomonas aeruginosa and latest blood cultures are negative. Patient is receiving IV cephapirin and p.o. Cipro plan is to arrange for a SANJU on Sunday. (3) IV drug abuse Is this a current diagnosis for this admission?: Yes Plan: Persistent IV drug abuse. Unfortunately patient seems to be abusing drugs while in the hospital. At times patient seems to be too sleepy. UDS on 06/08/2019 for back positive for opiates. Which was confirmed as morphine. Only on Subutex and tramadol in the hospital. Patient was advised on abstinence from recreational drug abuse. Currently on on Subutex since 05/27/2019 and tramadol. Was encouraged to rehab admission one day before discharge. 06/24/2019-patient has history of IV drug abuse. Counseling was provided today. 06/26/2019-continue Suboxone 06/29/2019-suspected self injection last night. Patient reports tachycardia was from using vape. Had a long discussion about compliance with hospital rules and treatment regimen. 07/02/2019-no complaints of any pains today. She is receiving Subutex and tramadol in the hospital. (4) Abdominal pain Qualifiers: Abdominal location: generalized Qualified Code(s): R10.84 - Generalized abdominal pain Is this a current diagnosis for this admission?: Yes Plan: Resolved. CT abdomen pelvis 06/06/2019 found no acute findings except for severe constipation. History of cholecystectomy. History of hepatitis C. History of hepatic steatosis. Lipase WNL. Continue beta-blockers and supportive measures. Continue bowel regimen. Encourage ambulation and high-fiber diet. 06/24/2019-patient came with complaints of abdominal pain. Which was resolved. Lipase levels are within normal limits. 06/26/2019-the patient does have history of hepatitis C. Since the rapid response 2 nights ago the patient exhibits increased LFTs. She does have a history of hepatitis C. I will recheck the liver enzymes and if they continue to increase I will obtain imaging of the abdomen. 06/27/2019-we discussed the elevated liver enzymes. She cannot remember when her last evaluation for hepatitis C was. I will check a hep C RNA level. We will continue to monitor the chemistries. 06/28/2019-liver enzymes are slowly improving. Unsure of the spike. Could be related to long-term antibiotics. We will continue to monitor. 07/02/19-patient has history of cholecystectomy, history of hepatitis C, history of hepatic steatosis lipase levels are within normal limits recently no complaints of abdominal pains. (5) Anemia Qualifiers: Anemia type: iron deficiency Iron deficiency anemia type: unspecified iron deficiency Qualified Code(s): D50.9 - Iron deficiency anemia, unspecified Is this a current diagnosis for this admission?: Yes Plan: Microcytic. Likely combination of anemia of chronic disease and iron deficiency anemia. Denies any easy bleeding, nosebleeds, hematemesis, hemoptysis, hematochezia, vaginal bleeding or melena. 05/30/2019. Iron panel. Serum iron 18.8, TIBC 270, saturation 7%, ferritin 213, folate 5.53, B12 folate 306, 06/08/2019. Status post 2 PRBC transfusion. Daily H&H, monitor for bleeding, supportive transfusions, ferrous sulfate. 06/24/2019-patient received 2 units of PRBC. During the hospital stay. Latest hemoglobin is 11.4. Stable. 06/25/2019-patient received 2 units of PRBC during the hospital stay latest hemoglobin is 11.4 plan is to closely trend the hemoglobin on daily basis. 06/26/2019-continue to monitor hemoglobin. 07/02/2019-patient's low latest hemoglobin is 10.3 stable. #6 ) plantar fasciitis-the patient developed tenderness under the arch of the left foot. I had physical therapy see the patient. They believe it is plantar fasciitis. She is on quinolone therapy long-term. This can have an adverse effect on tendons. We will continue to monitor. Physical therapy provided exercise plan for the patient. 06/29/2019-patient reports increased pain. I have added IV Toradol as an anti- inflammatory and physical therapy is working with her. 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 This puts the stop date at approximately July 14. She should still have a SANJU once that service is finally organized and offered. Anemia-continue iron supplement Drug abuse-continue Subutex Neuropathy-continue Neurontin Plantar fasciitis-she is working with physical therapy. Toradol is available. Consider wrapping her foot for support. Pain management-avoid narcotics completely 7.hyperkalemia Potassium today is 5.5 patient refused to take Kayexalate. to Recheck the potassium levels later on this evening. 07/04/2019-patient's potassium today 6.6 to Kayexalate and dextrose along with insulin IV to bring the potassium down repeat the potassium levels this afternoon. 07/05/2019-patient serum potassium is 5.5 today came down from 6.6 she was given Kayexalate along with the D50 1 amp and 8 units of regular insulin IV plan is to repeat the dose of 1 amp D50 and 6 units of regular insulin IV. Patient refusing Kayexalate. 07/06/2019-serum potassium is persistently high to start her on low potassium diet from today. 07/07/2019-latest serum potassium levels is 5.2 to recheck the labs today. Patient is on low potassium diet. - Time Time Spent with patient: 15-24 minutes Medications reviewed and adjusted accordingly: Yes Anticipated discharge: Home
[2019-07-07] MEDS: METOPROLOL TARTRATE 25 MG TABLET PO SCH ×2 (10:43→21:38)
[2019-07-07] MEDS: LACTOBACILLUS ACIDOPHILUS 250 MG TAB PO SCH ×2 (10:45→17:57)
[2019-07-07] MEDS: GABAPENTIN 300 MG CAPSULE PO SCH ×2 (10:45→21:39)
[2019-07-07] MEDS: MAGNESIUM OXIDE 400 MG TABLET PO SCH ×2 (10:46→17:57)
[2019-07-07] MEDS: FERROUS SULFATE 325 MG TABLET PO SCH (10:46)
[2019-07-07] MEDS: HEPARIN SOD (PORCINE) 5,000 UNIT/ML 1 ML VIAL SUBCUT SCH ×2 (10:47→21:37)
[2019-07-07] MEDS: BUPRENORPHINE HCL 2 MG SUBLINGUAL TABLET SL SCH ×2 (10:56→21:40)
[2019-07-07] MEDS: CIPROFLOXACIN HCL 750 MG TABLET PO SCH ×2 (10:56→21:39)
[2019-07-07] MEDS: NORMAL SALINE 10 ML SDV (SCHEDULED) IV SCH ×2 (10:58→21:42)
[2019-07-07 11:45] LABS: ABSOLUTE EOSINOPHILS # (AUTO) 0.2 10^3/uL (0.0-0.6); ABSOLUTE LYMPHOCYTES (AUTO) 1.6 10^3/uL (0.5-4.7); ABSOLUTE NEUT (AUTO) 6.7 10^3/uL (1.7-8.2); BASOPHILS % (AUTO) 0.5 % (0-2); EOSINOPHILS % (AUTO) 2.1 % (0-6); HEMATOCRIT 31.2 % (36.0-47.0); HEMOGLOBIN 10.3 g/dL (12.0-15.5); LYMPHOCYTES % (AUTO) 16.9 % (13-45); MEAN CORPUSCULAR HEMOGLOBIN 27.3 pg (27.0-33.4); MEAN CORPUSCULAR HGB CONC 32.8 g/dL (32.0-36.0); MEAN CORPUSCULAR VOLUME 83 fl (80-97); MONOCYTES % (AUTO) 10.6 % (3-13); PLATELET COUNT 253 10^3/uL (150-450); RED BLOOD COUNT 3.76 10^6/uL (3.72-5.28); RED CELL DISTRIBUTION WIDTH 17.5 % (11.5-14.0); SEGMENTED NEUTROPHILS % (AUTO) 69.9 % (42-78); TOTAL CELLS COUNTED % (AUTO) 100 %; WHITE BLOOD COUNT 9.6 10^3/uL (4.0-10.5)
[2019-07-07 12:05] LABS: ALBUMIN 3.6 g/dL (3.5-5.0); ALKALINE PHOSPHATASE 184 U/L (38-126); ANION GAP 8 (5-19); ASPARTATE AMINO TRANSFERASE 235 U/L (14-36); BILIRUBIN,DIRECT 0.2 mg/dL (0.0-0.4); BILIRUBIN,TOTAL 0.5 mg/dL (0.2-1.3); BLOOD UREA NITROGEN 24 mg/dL (7-20); CALCIUM 9.3 mg/dL (8.4-10.2); CARBON DIOXIDE 26 mmol/L (22-30); CHLORIDE 104 mmol/L (98-107); GLUCOSE 94 mg/dL (75-110); POTASSIUM 4.9 mmol/L (3.6-5.0); TOTAL PROTEIN 7.1 g/dL (6.3-8.2)
[2019-07-07] MEDS: QUETIAPINE FUMARATE 25 MG TABLET PO SCH (21:37)
[2019-07-07] MEDS: ATORVASTATIN CALCIUM 40 MG TABLET PO SCH (21:39)
[2019-07-08] MEDS: CEFEPIME 2 GM/D5W RTU 2 GM/50 ML RTUPB IV SCH ×3 (02:23→17:19)
[2019-07-08] MEDS: PANTOPRAZOLE SODIUM 40 MG TABLET.DR PO SCH (06:50)
[2019-07-08] MEDS: METOPROLOL TARTRATE 25 MG TABLET PO SCH ×2 (09:03→21:54)
[2019-07-08] MEDS: MAGNESIUM OXIDE 400 MG TABLET PO SCH ×2 (09:03→17:19)
[2019-07-08] MEDS: FERROUS SULFATE 325 MG TABLET PO SCH (09:03)
[2019-07-08] MEDS: HEPARIN SOD (PORCINE) 5,000 UNIT/ML 1 ML VIAL SUBCUT SCH ×2 (09:03→21:52)
[2019-07-08] MEDS: GABAPENTIN 300 MG CAPSULE PO SCH ×3 (09:04→21:49)
[2019-07-08] MEDS: CIPROFLOXACIN HCL 750 MG TABLET PO SCH ×2 (09:04→21:49)
[2019-07-08] MEDS: LACTOBACILLUS ACIDOPHILUS 250 MG TAB PO SCH ×2 (09:04→17:19)
[2019-07-08] MEDS: BUPRENORPHINE HCL 2 MG SUBLINGUAL TABLET SL SCH ×2 (09:04→21:50)
[2019-07-08] MEDS: NORMAL SALINE 10 ML SDV (SCHEDULED) IV SCH ×2 (09:05→21:59)
--- NOTE | 2019-07-08 09:37 | PDOC PROGRESS REPORT ---
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 She presents with dull retrosternal chest pain which has been present since valve replacement has developed fever and some shortness of breath prompting evaluation emergency room where she is found to have sepsis with hypotension, tachycardia, leukocytosis of 19,000, hypo-natremia hypomagnesemia hypo-kalemia and thrombocytopenia. She started on IV vancomycin and Dr. Bowen hospitalist at [facility] is consulted. 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 Subsequent cultures did not grow. [facility] is currently on regional diversion and are subsequently unable to accept her for transfer. She is referred to the hospitalist for admission. 06/04/2019. No acute events overnight. 06/05/2017. No acute events overnight. Denies any fever, chills, nausea, v omiting, diarrhea, constipation or any urinary symptoms. 06/06/2019. No acute events overnight. Continues to complain of chronic right upper quadrant abdominal pain. Denies any fever, chills, nausea, vomiting, diarrhea, constipation or any urinary symptoms. Patient is p.o. tolerant, ambulatory, having normal bowel and bladder movements. 06/07/2019. No acute events overnight. Significant improvement of abdominal pain after having a large bowel movement this morning. Patient is ambulatory, in no apparent distress, p.o. tolerant. Patient has been noted to have low blood pressure however she is asymptomatic. 06/08/2019. No acute events overnight, patient is comfortably sitting in bed, in no apparent distress, abdominal pain has improved significantly, ambulatory, p.o. tolerant, having normal bowel bladder movement, denies any fever, chills, nausea, vomiting, diarrhea, constipation or any urinary symptoms. Patient hemoglobin is 7.7 today denies any hematemesis, hemoptysis, melena, vaginal bleeding or any hematochezia. Stool guaiac has been negative. We will give 2 PRBC today. 06/09/2019. No acute events overnight. Comfortably sitting in bed enjoying her breakfast. In no apparent distress. Abdominal pain has resolved, ambulatory, having normal bladder and bowel movement. Denies any fever, chills, nausea, vomiting, diarrhea, constipation or any urinary symptoms. 06/14/2019. No acute events overnight. Comfortably sitting in bed eating ice chips, no apparent distress, alert oriented x3, denies any abdominal pain, ambulatory, p.o. tolerant, having normal bowel and bladder movements, denies any fever, chills, nausea, vomiting, diarrhea, or any urinary symptoms. Discussed with patient about the need for PICC line to come out as it was placed on 05/22/2019 and has had several positive blood cultures since then. As per ID recommendation will remove PICC line. 06/15/2019. No acute events overnight. Comfortably sitting in bed enjoying her breakfast. Alert oriented x3, denies any fever, chills, nausea, vomiting, diarrhea, constipation or any urinary symptoms. PICC line removed on 06/14/2019. PICC line tip has been sent to culture. 06/16/2019. No acute events overnight. Comfortably sitting in bed enjoying her breakfast. Alert oriented x3, denies any fever, chills, nausea, vomiting, diarrhea, constipation or any urinary symptoms. 06/17/2018. No acute events overnight. Resting in bed. Complaining bed. Complaining of chronic back pain, alert oriented x3, denies any fever, chills, nausea, vomiting, diarrhea, constipation or any urinary symptoms. 06/18/2019. No acute events overnight. Comfortably sitting in bed, enjoying her breakfast, back pain has improved since being started on Percocet, denies any fever, chills, nausea, vomiting, diarrhea, constipation or any urinary symptoms. P.o. tolerant, ambulatory, having normal bowel bladder movement. 06/19/2019. No acute events overnight. Denies any fever, chills, nausea, vomiting, diarrhea, constipation or any urinary symptoms. P.o. tolerant, ambulatory, having normal bowel bladder movement. 06/20/2019. Complaining of having nightmares overnight, could not get a good night sleep, back pain is improving with tizanidine and Percocet, denies any fever, chills, nausea, shortness of breath, diarrhea or any constipation. P.o. tolerant, ambulatory having normal bladder and bowel movements. 06/21/2019. No acute events overnight. Denies any fever, chills, nausea, shortness of breath, diarrhea or any constipation. P.o. tolerant, ambulatory having normal bladder and bowel movements. 06/22/2019. No acute events overnight. Denies any fever, chills, nausea, shortness of breath, diarrhea or any constipation. P.o. tolerant, ambulatory having normal bladder and bowel movements. 06/23/2019. No acute events overnight, patient is sitting in bed, pleasant, enjoying her breakfast, lower back pain is improving, denies any ,nausea, vomiting, diarrhea, constipation or any urinary symptoms. Has been refusing her docusate, Cymbalta, pantoprazole and was seems to be discontinued as Cymbalta makes her very anxious. 06/24/2019-no acute events in the last 24 hours. Afebrile. Patient is com fortable in the bed talking to the family members on the phone. 06/25/2019-response was called last night patient found to be shivering associated with chills. Blood pressure was extremely elevated. Patient was given Motrin and repeat blood cultures was done. Patient stable this morning. To closely monitor her medical condition plan is to move her from medical floor to IMCU today. Patient denies any complaints. Alert and awake communicating well. 07/01/2019. No acute events overnight, patient comfortably resting in bed in no apparent distress, still complaining of chronic back pain, was to be placed back on Percocet, tizanidine helping, denies any fever, chills, nausea, vomiting, diarrhea, constipation or any urinary symptoms. Reporting that her plantar fasciitis has totally resolved. 07/02/2019-no acute events in the last 24 hours. Afebrile. She is scheduled for SANJU after the of this month at this facility. Meantime will continue the antibiotic therapy until August 02 as per ID. Latest blood cultures are negative. 07/03/2019-no acute events in the last 24 hours. Patient is afebrile. Serum potassium came back 5.5 plan to give Kayexalate with the patient is refusing. 07/04/2019-serum potassium level 6.6 today. Yesterday's 5.5 she refused to take Kayexalate yesterday. After long discussion she agreed to take Kayexalate and we can to repeat the potassium levels this afternoon. pt Complaints of not feeling well requesting 1 extra dose of Percocet. 07/05/2019-serum potassium came down to 5.[address] her on low potassium diet and to give D50 1 ampoule along with 6 units of regular insulin IV. No acute events in the last 24 hours. Afebrile. Plan is to continue iv cefepime I am and p.o. Cipro floxacillin for endocarditis. She is going to have a SANJU next week. 07/06/2019-no acute events in the last 24 hours. Patient is afebrile. To start her on low potassium diet today. Serum potassium is 5.2. 07/07/2019-no acute events in the last 24 hours. Patient states she is unable to sleep because of the numbers in the hands and feet requesting to increase the dose of Zanaflex and gabapentin from today. 07/08/2019-no acute events in the last 24 hours. Afebrile. Patient is complaining of back pain wants to increase her Zanaflex and gabapentin for her numbness in the hands and feet and for back pain she is requesting Tylenol. SANJU request was placed for 16 of this month. no Acute events in the last 24 hours afebrile. Reason For Visit: IV DRUG ABUSE,SEPSIS,ENDOCARDITIS Physical Exam Vital Signs: Temp Pulse Resp BP Pulse Ox 97.7 F 77 17 121/65 100 07/08/19 02:30 07/08/19 06:38 07/08/19 02:30 07/08/19 02:30 07/08/19 02:30 Intake & Output 07/07/19 07/08/19 07/09/19 06:59 06:59 06:59 Intake Total 1452 1280 Balance 1452 1280 Weight 91.6 kg 91 kg General appearance: PRESENT: no acute distress Head exam: PRESENT: atraumatic Eye exam: PRESENT: PERRLA Mouth exam: PRESENT: laceration, neck supple Teeth exam: PRESENT: poor dentation Neck exam: ABSENT: carotid bruit, JVD, lymphadenopathy, thyromegaly Respiratory exam: PRESENT: decreased breath sounds Cardiovascular exam: PRESENT: RRR. ABSENT: diastolic murmur, rubs, systolic murmur GI/Abdominal exam: PRESENT: normal bowel sounds, soft. ABSENT: distended, guarding, mass, organolmegaly, rebound, tenderness Rectal exam: PRESENT: deferred Neurological exam: PRESENT: alert, awake, oriented to person, oriented to place, oriented to time, oriented to situation, CN II-XII grossly intact. ABSENT: motor sensory deficit Psychiatric exam: PRESENT: appropriate affect, normal mood. ABSENT: homicidal ideation, suicidal ideation Results Laboratory Results: 07/07/19 10:45 07/07/19 10:45 07/07/19 07/07/19 10:45 10:45 WBC 9.6 RBC 3.76 Hgb 10.3 L Hct 31.2 L MCV 83 MCH 27.3 MCHC 32.8 RDW 17.5 H Plt Count 253 Seg Neutrophils % 69.9 Sodium 137.6 Potassium 4.9 Chloride 104 Carbon Dioxide 26 Anion Gap 8 BUN 24 H Creatinine 0.80 Est GFR ( Amer) > 60 Glucose 94 Calcium 9.3 Magnesium 1.8 Total Bilirubin 0.5 AST 235 H Alkaline Phosphatase 184 H Total Protein 7.1 Albumin 3.6 05/21/19 05/22/19 05/22/19 23:07 02:06 11:00 Creatine Kinase CK-MB (CK-2) Troponin I 0.098 0.098 0.070 NT-Pro-B Natriuret Pep 05/22/19 05/22/19 05/22/19 14:00 14:35 20:04 Creatine Kinase CK-MB (CK-2) Troponin I Cancelled 0.060 0.037 NT-Pro-B Natriuret Pep 05/28/19 05/28/19 06/02/19 00:15 00:15 00:20 Creatine Kinase < 20 L < 20 L CK-MB (CK-2) 0.49 Troponin I 0.077 NT-Pro-B Natriuret Pep 06/02/19 06/02/19 06/02/19 00:20 06:15 06:15 Creatine Kinase < 20 L CK-MB (CK-2) 1.53 1.39 Troponin I 0.194 0.171 NT-Pro-B Natriuret Pep 06/02/19 06/02/19 06/28/19 13:30 13:30 03:40 Creatine Kinase < 20 L 26 L CK-MB (CK-2) 1.68 Troponin I 0.175 NT-Pro-B Natriuret Pep 4000 H Impressions: Chest X-Ray 05/21/19 23:04 IMPRESSION: 1. No acute pulmonary findings. 2. Previous sternotomy Abdomen Ultrasound 05/28/19 00:00 IMPRESSION: Mild splenomegaly. No acute findings otherwise. Abdomen/Pelvis CT 06/06/19 00:00 IMPRESSION: 1. Gastric distention and debris. Ileus. Constipation. 2. Normal appendix. No acute abdominopelvic abnormality. Guidance Fluoroscopy 06/23/19 00:00 IMPRESSION: SUCCESSFUL PLACEMENT OF A 5 FR DUAL LUMEN 38 CM PICC IN THE LEFT BASILIC VEIN. Interventional Vascular Procedure 06/23/19 00:00 IMPRESSION: SUCCESSFUL PLACEMENT OF A 5 FR DUAL LUMEN 38 CM PICC IN THE LEFT BASILIC VEIN. PICC Line Insertion 06/23/19 00:00 IMPRESSION: SUCCESSFUL PLACEMENT OF A 5 FR DUAL LUMEN 38 CM PICC IN THE LEFT BASILIC VEIN. Foot X-Ray 06/29/19 00:00 IMPRESSION: NEGATIVE STUDY OF THE LEFT FOOT. NO EXPLANATION FOR PAIN. Assessment and Plan - Diagnosis (1) Endocarditis Qualifiers: Endocarditis type: infective Is this a current diagnosis for this admission?: Yes Plan: 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 Presented to ED with dull retrosternal chest pain which has been present since valve replacement. Was a started started on IV vancomycin by Dr. Bowen hospitalist at [facility]. 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 [facility] on regional diversion at the admission time and was admitted here at [facility]. 05/21/2019. TTE LVEF 60%. No thrombus or vegetations noted. Severe tricuspid regurgitation. RSVP 48 to 53 mmHg.05/27/2019 Started on empiric broad-spectrum IV antibiotics. PICC line placed on 05/22/2018 on the left basilic vein. PICC line removed 06/14/2019 as per ID recommendation. Please refer to note. Tip was cultured which came back negative. Multiple positive blood cultures for pseudomonas aeruginosa. Last negative blood culture 05/31/2019. Last negative blood culture 05/31/2019. Day 23 of 56 days. Expected completion date 07/30/2019. Day 25 IV cefepime. Day 13 Ciprofloxacin 750 mg p.o. twice daily. Day 31 IV antibiotics. Received 10 days of IV levofloxacin. Switch to ciprofloxacin IV as per ID recommendation. I have been informed that [facility] will be able to do SANJU starting early June. Patient has stable and receiving IV antibiotics SANJU can wait until early June if not [facility] for SANJU. 06/09/2019. Infectious disease consulted. Recommendations noted. Please refer to note. Unfortunately patient has a drug abuse and could not be sent home on IV anti biotics. 07/03/2019-patient has endocarditis not a candidate to go home with an IV antibiotic therapy. Patient may need a SANJU this week. pt is presently on IV cefepime. 07/04/2019-patient has history of endocarditis on IV antibiotic therapy plan for SANJU next week. Patient is presently-IV cefepime and p.o. ciprofloxacin. 07/05/2019-patient is receiving IV cephapirin and p.o. ciprofloxacin for endocarditis possible SANJU next week. pt patient is going to complete the antibiotic course on July 30. (2) Bacteremia due to Pseudomonas Is this a current diagnosis for this admission?: Yes (3) IV drug abuse Is this a current diagnosis for this admission?: Yes (4) Abdominal pain Qualifiers: Abdominal location: generalized Qualified Code(s): R10.84 - Generalized abdominal pain Is this a current diagnosis for this admission?: Yes (5) Anemia Qualifiers: Anemia type: iron deficiency Iron deficiency anemia type: unspecified iron deficiency Qualified Code(s): D50.9 - Iron deficiency anemia, unspecified Is this a current diagnosis for this admission?: Yes - Plan Summary Summary: (1) Endocarditis Qualifiers: Endocarditis type: infective Is this a current diagnosis for this admission?: Yes Plan: 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 Presented to ED with dull retrosternal chest pain which has been present since valve replacement. Was a started started on IV vancomycin by Dr. Bowen hospitalist at [facility]. 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 [facility] on regional diversion at the admission time and was admitted here at [facility]. 05/21/2019. TTE LVEF 60%. No thrombus or vegetations noted. Severe tricuspid regurgitation. RSVP 48 to 53 mmHg.05/27/2019 Started on empiric broad-spectrum IV antibiotics. PICC line placed on 05/22/2018 on the left basilic vein. PICC line removed 06/14/2019 as per ID recommendation. Please refer to note. Tip was cultured which came back negative. Multiple positive blood cultures for pseudomonas aeruginosa. Last negative blood culture 05/31/2019 Last negative blood culture 05/31/2019. Day 23 of 56 days. Expected completion date 07/30/2019. Day 25 IV cefepime. Day 13 Ciprofloxacin 750 mg p.o. twice daily. Day 31 IV antibiotics. Received 10 days of IV levofloxacin. Switch to ciprofloxacin IV as per ID recommendation. I have been informed that [facility] will be able to do SANJU starting early June. Patient has stable and receiving IV antibiotics SANJU can wait until early June if not will call [facility] for transfer for SANJU. 06/09/2019. Infectious disease consulted. Recommendations noted. Please refer to note. Unfortunately patient has a drug abuse and could not be sent home on IV antibiotics. 06/24/2019-patient has endocarditis not a candidate to go home with an IV antibiotic therapy. Patient may need a SANJU this week. pt is presently on IV cefepime. 06/25/2019-patient has history of endocarditis secondary to percent 10 to use of IV drug abuse. Admitted with fever and chills. Blood cultures came back positive for pseudomonas aeruginosa latest blood cultures are negative. Patient is presently on cefepime and p.o. ciprofloxacin. Plan is to arrange for SANJU after 01 July at this hospital. Last night patient has no fever but Reiger's and chills. To closely monitor her medical condition plan is to move her to [facility] today. 06/26/2019-unfortunately the SANJU service is not available yet. The patient will continue her antibiotic therapy. She will need 6 weeks from the first set of blood cultures that were no growth. 06/27/2019-no changes to the treatment plan. 06/28/2019-she is complaining of plantar fasciitis. Achilles tendons are nontender and appear intact. Will monitor while on quinolone therapy. 06/29/2019-no change in therapy at this time. Expected end date July 30. 07/02/2019-patient is admitted with endocarditis now the plan is to arrange for SANJU after 09 July here at [place]. In the meantime plan is to continue IV antibiotic therapy. Sedated 32 of IV antibiotic therapy patient is presently on IV cefepime and Cipro floxacillin 750 mg p.o. twice a day. 07/03/2019-patient is scheduled for SANJU after July 10. Presently on IV cefepime and p.o. Cipro floxacillin as per ID recommendations. She is going to complete the antibiotic therapy on July 30. 07/04/2019-patient admitted with endocarditis on IV cefepime and p.o. Cipro floxacillin. Plan to arrange for SANJU next week. 07/05/2019-patient is on IV cefepime, p.o. Cipro floxacillin and antibiotic course will be finished on July 30. Possible SANJU next week. 07/06/2019-patient is presently on IV cefepime, p.o. Cipro floxacillin for endocarditis. Plan to have a SANJU next week. Plan is to continue IV antibiotic therapy until #60. 07/07/2019-patient is presently on IV cefepime and p.o. Cipro floxacillin for endocarditis patient may go for a SANJU this week 07/08/2019-patient is presently on IV cefepime and Cipro floxacillin for endocarditis request for SANJU placed for tomorrow. 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 Presented to ED with dull retrosternal chest pain which has been present since v alve replacement. Was a started started on IV vancomycin by Dr. Bowen hospitalist at [facility]. 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 [facility] on regional diversion at the admission time and was admitted here at [facility]. 05/21/2019. TTE LVEF 60%. No thrombus or vegetations noted. Severe tricuspid regurgitation. RSVP 48 to 53 mmHg.05/27/2019 Started on empiric broad-spectrum IV antibiotics. PICC line placed on 05/22/2018 on the left basilic vein. PICC line removed on 06/14/2019 as per ID recommendation. PICC line tip sent to culture. Multiple positive blood cultures for pseudomonas aeruginosa. Last negative blood culture 05/31/2019. Plan as per #1 06/24/2019-blood cultures came back positive for Pseudomonas aeruginosa on 05 29. Latest blood cultures are negative. As per ID recommendations PICC line was removed on 91. As listed above latest cultures are negative. Plan is to continue the present management. 06/25/2019-blood cultures from 05/29/2019 came back positive for Pseudomonas aeruginosa as per ID recommendations patient is on p.o. Cipro floxacillin and IV cephapirin. Waiting for a SANJU procedure after 01 July. Cultures are negative. Latest 06/26/2019-multiple repeated blood cultures are negative. Continue current treatment regimen. 06/29/2019-as above 07/02/2019-latest blood cultures from 06/25/2019 are negative. 07/04/2019-latest blood cultures are negative. Patient has endocarditis. History of IV drug abuse. SANJU is scheduled for next week. Plan is to continue IV cefepime and p.o. Cipro floxacillin. 07/05/2019-latest blood cultures are negative from 06/25 2019. She had a history of IV drug abuse admitted for endocarditis. Possible SANJU next week. Plan is to continue cefepime and p.o. ciprofloxacin. 07/06/2019-latest blood cultures are negative. Prior blood cultures are positive for Pseudomonas aeruginosa and patient getting treatment for endocarditis. For possible SANJU next week. Plan is to continue antibiotic the rapy until July 30. 07/07/2019-initial cultures came back positive for Pseudomonas aeruginosa and latest blood cultures are negative. Patient is receiving IV cephapirin and p.o. Cipro plan is to arrange for a SANJU on Sunday.2018-initial blood cultures are positive for pseudomonas aeruginosa and follow-up blood cultures are negative. Patient is scheduled for a SANJU tomorrow and to continue IV cefepime and p.o. Cipro floxacillin. (3) IV drug abuse Is this a current diagnosis for this admission?: Yes Plan: Persistent IV drug abuse. Unfortunately patient seems to be abusing drugs while in the hospital. At times patient seems to be too sleepy. UDS on 06/08/2019 for back positive for opiates. Which was confirmed as morphine. Only on Subutex and tramadol in the hospital. Patient was advised on abstinence from recreational drug abuse. Currently on on Subutex since 05/27/2019 and tramadol. Was encouraged to rehab admission one day before discharge. 06/24/2019-patient has history of IV drug abuse. Counseling was provided today. 06/26/2019-continue Suboxone 06/29/2019-suspected self injection last night. Patient reports tachycardia was from using vape. Had a long discussion about compliance with hospital rules and treatment regimen. 07/02/2019-no complaints of any pains today. She is receiving Subutex and tramadol in the hospital. (4) Abdominal pain Qualifiers: Abdominal location: generalized Qualified Code(s): R10.84 - Generalized abdominal pain Is this a current diagnosis for this admission?: Yes Plan: Resolved. CT abdomen pelvis 06/06/2019 found no acute findings except for severe constipation. History of cholecystectomy. History of hepatitis C. History of hepatic steatosis. Lipase WNL. Continue beta-blockers and supportive measures. Continue bowel regimen. Encourage ambulation and high-fiber diet. 06/24/2019-patient came with complaints of abdominal pain. Which was resolved. Lipase levels are within normal limits. 06/26/2019-the patient does have history of hepatitis C. Since the rapid response 2 nights ago the patient exhibits increased LFTs. She does have a history of hepatitis C. I will recheck the liver enzymes and if they continue to increase I will obtain imaging of the abdomen. 06/27/2019-we discussed the elevated liver enzymes. She cannot remember when her last evaluation for hepatitis C was. I will check a hep C RNA level. We will continue to monitor the chemistries. 06/28/2019-liver enzymes are slowly improving. Unsure of the spike. Could be related to long-term antibiotics. We will continue to monitor. 07/02/19-patient has history of cholecystectomy, history of hepatitis C, history of hepatic steatosis lipase levels are within normal limits recently no complaints of abdominal pains. (5) Anemia Qualifiers: Anemia type: iron deficiency Iron deficiency anemia type: unspecified iron deficiency Qualified Code(s): D50.9 - Iron deficiency anemia, unspecified Is this a current diagnosis for this admission?: Yes Plan: Microcytic. Likely combination of anemia of chronic disease and iron deficiency anemia. Denies any easy bleeding, nosebleeds, hematemesis, hemoptysis, hematochezia, vaginal bleeding or melena. 05/30/2019. Iron panel. Serum iron 18.8, TIBC 270, saturation 7%, ferritin 213, folate 5.53, B12 folate 306, 06/08/2019. Status post 2 PRBC transfusion. Daily H&H, monitor for bleeding, supportive transfusions, ferrous sulfate. 06/24/2019-patient received 2 units of PRBC. During the hospital stay. Latest hemoglobin is 11.4. Stable. 06/25/2019-patient received 2 units of PRBC during the hospital stay latest hemoglobin is 11.4 plan is to closely trend the hemoglobin on daily basis. 06/26/2019-continue to monitor hemoglobin. 07/02/2019-patient's low latest hemoglobin is 10.3 stable. #6 ) plantar fasciitis-the patient developed tenderness under the arch of the left foot. I had physical therapy see the patient. They believe it is plantar fasciitis. She is on quinolone therapy long-term. This can have an adverse effect on tendons. We will continue to monitor. Physical therapy provided exercise plan for the patient. 06/29/2019-patient reports increased pain. I have added IV Toradol as an anti-inflammatory and physical therapy is working with her. 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 This puts the stop date at approximately July 14. She should still have a SANJU once that service is finally organized and offered. Anemia-continue iron supplement Drug abuse-continue Subutex Neuropathy-continue Neurontin Plantar fasciitis-she is working with physical therapy. Toradol is available. Consider wrapping her foot for support. Pain management-avoid narcotics completely 7.hyperkalemia Potassium today is 5.5 patient refused to take Kayexalate. to Recheck the potassium levels later on this evening. 07/04/2019-patient's potassium today 6.6 to Kayexalate and dextrose along with insulin IV to bring the potassium down repeat the potassium levels this afternoon. 07/05/2019-patient serum potassium is 5.5 today came down from 6.6 she was given Kayexalate along with the D50 1 amp and 8 units of regular insulin IV plan is to repeat the dose of 1 amp D50 and 6 units of regular insulin IV. Patient refusing Kayexalate. 07/06/2019-serum potassium is persistently high to start her on low potassium diet from today. 07/07/2019-latest serum potassium levels is 5.2 to recheck the labs today. Patient is on low potassium diet. 07/08/2019-patient serum potassium today is 4.9 hyperkalemia is resolved. - Time Time Spent with patient: 25-34 minutes Medications reviewed and adjusted accordingly: Yes Anticipated discharge: Home
[2019-07-08] MEDS: ACETAMINOPHEN 325 MG TABLET PO PRN (09:52)
[2019-07-08] MEDS: TIZANIDINE HCL 4 MG TABLET PO PRN ×3 (09:54→21:49)
[2019-07-08] MEDS ORDERED: DEXTROSE 50%-WATER 25 GM/50 ML DISP.SYRIN IV PRN ×2 (13:45)
[2019-07-08] MEDS ORDERED: DEXTROSE 40% GEL 15 GM TUBE PO PRN ×2 (13:45)
[2019-07-08] MEDS ORDERED: GLUCAGON,HUMAN RECOMB 1 MG INJ SUBCUT PRN (13:45)
[2019-07-08] MEDS: ATORVASTATIN CALCIUM 40 MG TABLET PO SCH (21:48)
[2019-07-08] MEDS: QUETIAPINE FUMARATE 25 MG TABLET PO SCH (21:49)
[2019-07-09] MEDS: TIZANIDINE HCL 4 MG TABLET PO PRN ×4 (02:58→22:46)
[2019-07-09] MEDS: CEFEPIME 2 GM/D5W RTU 2 GM/50 ML RTUPB IV SCH ×3 (02:59→17:52)
[2019-07-09] MEDS: PANTOPRAZOLE SODIUM 40 MG TABLET.DR PO SCH (05:53)
[2019-07-09] MEDS: GABAPENTIN 300 MG CAPSULE PO SCH ×3 (05:53→22:40)
[2019-07-09] MEDS ORDERED: DIPHENHYDRAMINE HCL 50 MG/ML VIAL ONE (07:25)
[2019-07-09] MEDS ORDERED: LIDOCAINE 2% VISCOUS SOLN 20 ML UDCUP ONE (07:25)
[2019-07-09] MEDS ORDERED: FLUMAZENIL INJ 0.5 MG/5 ML VIAL ONE (07:25)
[2019-07-09] MEDS ORDERED: NALOXONE HCL INJ/PF 0.4 MG/1 ML SDV ONE (07:25)
[2019-07-09] MEDS ORDERED: BENZOCAINE 20% AEROSOL SPRAY 60 GM ONE (07:26)
[2019-07-09] MEDS ORDERED: ONDANSETRON HCL INJ/PF 4 MG/2 ML SDV ONE (08:21)
[2019-07-09] MEDS: MIDAZOLAM 2 MG/2 ML INJ ONE ×2 (08:27→08:30)
[2019-07-09] MEDS: FENTANYL CITRATE INJ/PF 100 MCG/2 ML AMPUL ONE ×2 (08:29→08:32)
[2019-07-09] MEDS: CIPROFLOXACIN HCL 750 MG TABLET PO SCH ×2 (09:37→22:38)
[2019-07-09] MEDS: BUPRENORPHINE HCL 2 MG SUBLINGUAL TABLET SL SCH ×2 (09:37→22:36)
[2019-07-09] MEDS: FERROUS SULFATE 325 MG TABLET PO SCH (09:37)
[2019-07-09] MEDS: METOPROLOL TARTRATE 25 MG TABLET PO SCH ×2 (09:38→22:40)
[2019-07-09] MEDS: LACTOBACILLUS ACIDOPHILUS 250 MG TAB PO SCH ×2 (09:38→17:48)
[2019-07-09] MEDS: HEPARIN SOD (PORCINE) 5,000 UNIT/ML 1 ML VIAL SUBCUT SCH ×2 (09:38→22:39)
[2019-07-09] MEDS: MAGNESIUM OXIDE 400 MG TABLET PO SCH ×2 (09:38→17:45)
[2019-07-09] MEDS: NORMAL SALINE 10 ML SDV (SCHEDULED) IV SCH ×2 (09:39→22:40)
--- NOTE | 2019-07-09 09:43 | PDOC PROGRESS REPORT ---
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 She presents with dull retrosternal chest pain which has been present since valve replacement has developed fever and some shortness of breath prompting evaluation emergency room where she is found to have sepsis with hypotension, tachycardia, leukocytosis of 19,000, hypo-natremia hypomagnesemia hypo-kalemia and thrombocytopenia. She started on IV vancomycin and Dr. Bowen hospitalist at [facility] is consulted. 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 Subsequent cultures did not grow. [facility] is currently on regional diversion and are subsequently unable to accept her for transfer. She is referred to the hospitalist for admission. 06/04/2019. No acute events overnight. 06/05/2017. No acute events overnight. Denies any fever, chills, nausea, v omiting, diarrhea, constipation or any urinary symptoms. 06/06/2019. No acute events overnight. Continues to complain of chronic right upper quadrant abdominal pain. Denies any fever, chills, nausea, vomiting, diarrhea, constipation or any urinary symptoms. Patient is p.o. tolerant, ambulatory, having normal bowel and bladder movements. 06/07/2019. No acute events overnight. Significant improvement of abdominal pain after having a large bowel movement this morning. Patient is ambulatory, in no apparent distress, p.o. tolerant. Patient has been noted to have low blood pressure however she is asymptomatic. 06/08/2019. No acute events overnight, patient is comfortably sitting in bed, in no apparent distress, abdominal pain has improved significantly, ambulatory, p.o. tolerant, having normal bowel bladder movement, denies any fever, chills, nausea, vomiting, diarrhea, constipation or any urinary symptoms. Patient hemoglobin is 7.7 today denies any hematemesis, hemoptysis, melena, vaginal bleeding or any hematochezia. Stool guaiac has been negative. We will give 2 PRBC today. 06/09/2019. No acute events overnight. Comfortably sitting in bed enjoying her breakfast. In no apparent distress. Abdominal pain has resolved, ambulatory, having normal bladder and bowel movement. Denies any fever, chills, nausea, vomiting, diarrhea, constipation or any urinary symptoms. 06/14/2019. No acute events overnight. Comfortably sitting in bed eating ice chips, no apparent distress, alert oriented x3, denies any abdominal pain, ambulatory, p.o. tolerant, having normal bowel and bladder movements, denies any fever, chills, nausea, vomiting, diarrhea, or any urinary symptoms. Discussed with patient about the need for PICC line to come out as it was placed on 05/22/2019 and has had several positive blood cultures since then. As per ID recommendation will remove PICC line. 06/15/2019. No acute events overnight. Comfortably sitting in bed enjoying her breakfast. Alert oriented x3, denies any fever, chills, nausea, vomiting, diarrhea, constipation or any urinary symptoms. PICC line removed on 06/14/2019. PICC line tip has been sent to culture. 06/16/2019. No acute events overnight. Comfortably sitting in bed enjoying her breakfast. Alert oriented x3, denies any fever, chills, nausea, vomiting, diarrhea, constipation or any urinary symptoms. 06/17/2018. No acute events overnight. Resting in bed. Complaining bed. Complaining of chronic back pain, alert oriented x3, denies any fever, chills, nausea, vomiting, diarrhea, constipation or any urinary symptoms. 06/18/2019. No acute events overnight. Comfortably sitting in bed, enjoying her breakfast, back pain has improved since being started on Percocet, denies any fever, chills, nausea, vomiting, diarrhea, constipation or any urinary symptoms. P.o. tolerant, ambulatory, having normal bowel bladder movement. 06/19/2019. No acute events overnight. Denies any fever, chills, nausea, vomiting, diarrhea, constipation or any urinary symptoms. P.o. tolerant, ambulatory, having normal bowel bladder movement. 06/20/2019. Complaining of having nightmares overnight, could not get a good night sleep, back pain is improving with tizanidine and Percocet, denies any fever, chills, nausea, shortness of breath, diarrhea or any constipation. P.o. tolerant, ambulatory having normal bladder and bowel movements. 06/21/2019. No acute events overnight. Denies any fever, chills, nausea, shortness of breath, diarrhea or any constipation. P.o. tolerant, ambulatory having normal bladder and bowel movements. 06/22/2019. No acute events overnight. Denies any fever, chills, nausea, shortness of breath, diarrhea or any constipation. P.o. tolerant, ambulatory having normal bladder and bowel movements. 06/23/2019. No acute events overnight, patient is sitting in bed, pleasant, enjoying her breakfast, lower back pain is improving, denies any ,nausea, vomiting, diarrhea, constipation or any urinary symptoms. Has been refusing her docusate, Cymbalta, pantoprazole and was seems to be discontinued as Cymbalta makes her very anxious. 06/24/2019-no acute events in the last 24 hours. Afebrile. Patient is com fortable in the bed talking to the family members on the phone. 06/25/2019-response was called last night patient found to be shivering associated with chills. Blood pressure was extremely elevated. Patient was given Motrin and repeat blood cultures was done. Patient stable this morning. To closely monitor her medical condition plan is to move her from medical floor to IMCU today. Patient denies any complaints. Alert and awake communicating well. 07/01/2019. No acute events overnight, patient comfortably resting in bed in no apparent distress, still complaining of chronic back pain, was to be placed back on Percocet, tizanidine helping, denies any fever, chills, nausea, vomiting, diarrhea, constipation or any urinary symptoms. Reporting that her plantar fasciitis has totally resolved. 07/02/2019-no acute events in the last 24 hours. Afebrile. She is scheduled for SANJU after the of this month at this facility. Meantime will continue the antibiotic therapy until August 02 as per ID. Latest blood cultures are negative. 07/03/2019-no acute events in the last 24 hours. Patient is afebrile. Serum potassium came back 5.5 plan to give Kayexalate with the patient is refusing. 07/04/2019-serum potassium level 6.6 today. Yesterday's 5.5 she refused to take Kayexalate yesterday. After long discussion she agreed to take Kayexalate and we can to repeat the potassium levels this afternoon. pt Complaints of not feeling well requesting 1 extra dose of Percocet. 07/05/2019-serum potassium came down to 5.[address] her on low potassium diet and to give D50 1 ampoule along with 6 units of regular insulin IV. No acute events in the last 24 hours. Afebrile. Plan is to continue iv cefepime I am and p.o. Cipro floxacillin for endocarditis. She is going to have a SANJU next week. 07/06/2019-no acute events in the last 24 hours. Patient is afebrile. To start her on low potassium diet today. Serum potassium is 5.2. 07/07/2019-no acute events in the last 24 hours. Patient states she is unable to sleep because of the numbers in the hands and feet requesting to increase the dose of Zanaflex and gabapentin from today. 07/08/2019-no acute events in the last 24 hours. Afebrile. Patient is complaining of back pain wants to increase her Zanaflex and gabapentin for her numbness in the hands and feet and for back pain she is requesting Tylenol. SANJU request was placed for of this month. no Acute events in the last 24 hours afebrile. 07/09/2019-no acute events in the last 24 hours. Afebrile. Patient went for a SANJU this morning. Dr. Del Rosario and he called me to discuss the findings according to him patient might have vegetation on the aortic valve, his impression is patient has an aortic valve surgery instead of tricuspid valve surgery that was documented in the previous notes. The plan is to continue IV antibiotic therapy as per ID recommendations until July 30. Reason For Visit: IV DRUG ABUSE,SEPSIS,ENDOCARDITIS Physical Exam Vital Signs: Temp Pulse Resp BP Pulse Ox 97.5 F 76 18 100/58 L 100 07/09/19 02:59 07/09/19 09:04 07/09/19 09:04 07/09/19 09:04 07/09/19 09:04 Intake & Output 07/08/19 07/09/19 07/10/19 06:59 06:59 06:59 Intake Total 1280 2045 150 Balance 1280 2045 150 Weight 91 kg 89.1 kg General appearance: PRESENT: no acute distress, cooperative Head exam: PRESENT: atraumatic Eye exam: PRESENT: PERRLA Mouth exam: PRESENT: neck supple Teeth exam: PRESENT: poor dentation Neck exam: ABSENT: carotid bruit, JVD, lymphadenopathy, thyromegaly Respiratory exam: PRESENT: decreased breath sounds Cardiovascular exam: PRESENT: RRR. ABSENT: diastolic murmur, rubs, systolic murmur GI/Abdominal exam: PRESENT: normal bowel sounds, soft. ABSENT: distended, gu arding, mass, organolmegaly, rebound, tenderness Rectal exam: PRESENT: deferred Extremities exam: PRESENT: full ROM. ABSENT: calf tenderness, clubbing, pedal edema Neurological exam: PRESENT: alert, awake, oriented to person, oriented to place, oriented to time, oriented to situation, CN II-XII grossly intact. ABSENT: mot or sensory deficit Psychiatric exam: PRESENT: appropriate affect, normal mood. ABSENT: homicidal ideation, suicidal ideation Results Laboratory Results: 07/07/19 10:45 07/07/19 10:45 05/21/19 05/22/19 05/22/19 23:07 02:06 11:00 Creatine Kinase CK-MB (CK-2) Troponin I 0.098 0.098 0.070 NT-Pro-B Natriuret Pep 05/22/19 05/22/19 05/22/19 14:00 14:35 20:04 Creatine Kinase CK-MB (CK-2) Troponin I Cancelled 0.060 0.037 NT-Pro-B Natriuret Pep 05/28/19 05/28/19 06/02/19 00:15 00:15 00:20 Creatine Kinase < 20 L < 20 L CK-MB (CK-2) 0.49 Troponin I 0.077 NT-Pro-B Natriuret Pep 06/02/19 06/02/19 06/02/19 00:20 06:15 06:15 Creatine Kinase < 20 L CK-MB (CK-2) 1.53 1.39 Troponin I 0.194 0.171 NT-Pro-B Natriuret Pep 06/02/19 06/02/19 06/28/19 13:30 13:30 03:40 Creatine Kinase < 20 L 26 L CK-MB (CK-2) 1.68 Troponin I 0.175 NT-Pro-B Natriuret Pep 4000 H Impressions: Chest X-Ray 05/21/19 23:04 IMPRESSION: 1. No acute pulmonary findings. 2. Previous sternotomy Abdomen Ultrasound 05/28/19 00:00 IMPRESSION: Mild splenomegaly. No acute findings otherwise. Abdomen/Pelvis CT 06/06/19 00:00 IMPRESSION: 1. Gastric distention and debris. Ileus. Constipation. 2. Normal appendix. No acute abdominopelvic abnormality. Guidance Fluoroscopy 06/23/19 00:00 IMPRESSION: SUCCESSFUL PLACEMENT OF A 5 FR DUAL LUMEN 38 CM PICC IN THE LEFT BASILIC VEIN. Interventional Vascular Procedure 06/23/19 00:00 IMPRESSION: SUCCESSFUL PLACEMENT OF A 5 FR DUAL LUMEN 38 CM PICC IN THE LEFT BASILIC VEIN. PICC Line Insertion 06/23/19 00:00 IMPRESSION: SUCCESSFUL PLACEMENT OF A 5 FR DUAL LUMEN 38 CM PICC IN THE LEFT BASILIC VEIN. Foot X-Ray 06/29/19 00:00 IMPRESSION: NEGATIVE STUDY OF THE LEFT FOOT. NO EXPLANATION FOR PAIN. Assessment and Plan - Diagnosis (1) Endocarditis Qualifiers: Endocarditis type: infective Is this a current diagnosis for this admission?: Yes Plan: 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 Status post tricuspid valve replacement September 2018 at [facility]. 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 Presented to ED with dull retrosternal chest pain which has been present since valve replacement. Was a started started on IV vancomycin by Dr. Bowen hospitalist at [facility]. 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 [facility] on regional diversion at the admission time and was admitted here at [facility]. 05/21/2019. TTE LVEF 60%. No thrombus or vegetations noted. Severe tricuspid regurgitation. RSVP 48 to 53 mmHg.05/27/2019 Started on empiric broad-spectrum IV antibiotics. PICC line placed on 05/22/2018 on the left basilic vein. PICC line removed 06/14/2019 as per ID recommendation. Please refer to note. Tip was cultured which came back negative. Multiple positive blood cultures for pseudomonas aeruginosa. Last negative blood culture 05/31/2019. Last negative blood culture 05/31/2019. Day 23 of 56 days. Expected completion date 07/30/2019. Day 25 IV cefepime. Day 13 Ciprofloxacin 750 mg p.o. twice daily. Day 31 IV antibiotics. Received 10 days of IV levofloxacin. Switch to ciprofloxacin IV as per ID recommendation. I have been informed that [facility] will be able to do SANJU starting early June. Patient has stable and receiving IV antibiotics SANJU can wait until early June if not will call [facility] again for transfer for SANJU. 06/09/2019. Infectious disease consulted. Recommendations noted. Please refer to note. Unfortunately patient has a drug abuse and could not be sent home on IV antibiotics. 07/03/2019-patient has endocarditis not a candidate to go home with an IV antibiotic therapy. Patient may need a SANJU this week. pt is presently on IV cefepime. 07/04/2019-patient has history of endocarditis on IV antibiotic therapy plan for SANJU next week. Patient is presently-IV cefepime and p.o. ciprofloxacin. 07/05/2019-patient is receiving IV cephapirin and p.o. ciprofloxacin for endocarditis possible SANJU next week. pt patient is going to complete the antibiotic course on July 30. 1016 (2) Bacteremia due to Pseudomonas Is this a current diagnosis for this admission?: Yes (3) IV drug abuse Is this a current diagnosis for this admission?: Yes (4) Abdominal pain Qualifiers: Abdominal location: generalized Qualified Code(s): R10.84 - Generalized abdominal pain Is this a current diagnosis for this admission?: Yes (5) Anemia Qualifiers: Anemia type: iron deficiency Iron deficiency anemia type: unspecified iron deficiency Qualified Code(s): D50.9 - Iron deficiency anemia, unspecified Is this a current diagnosis for this admission?: Yes - Plan Summary Summary: (1) Endocarditis Qualifiers: Endocarditis type: infective Is this a current diagnosis for this admission?: Yes Plan: 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 Status post tricuspid valve replacement September 2018 at [facility]. 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 Presented to ED with dull retrosternal chest pain which has been present since valve replacement. Was a started started on IV vancomycin by Dr. Bowen hospitalist at [facility]. 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 [facility] on regional diversion at the admission time and was admitted here at [facility]. 05/21/2019. TTE LVEF 60%. No thrombus or vegetations noted. Severe tricuspid regurgitation. RSVP 48 to 53 mmHg.05/27/2019 Started on empiric broad-spectrum IV antibiotics. PICC line placed on 05/22/2018 on the left basilic vein. PICC line removed 06/14/2019 as per ID recommendation. Please refer to note. Tip was cultured which came back negative. Multiple positive blood cultures for pseudomonas aeruginosa. Last negative blood culture 05/31/2019 Last negative blood culture 05/31/2019. Day 23 of 56 days. Expected completion date 07/30/2019. Day 25 IV cefepime. Day 13 Ciprofloxacin 750 mg p.o. twice daily. Day 31 IV antibiotics. Received 10 days of IV levofloxacin. Switch to ciprofloxacin IV as per ID recommendation. I have been informed that [facility] will be able to do SANJU starting early June. Patient has stable and receiving IV antibiotics SANJU can wait until early June if not will call [facility] again for transfer for SANJU. 06/09/2019. Infectious disease consulted. Recommendations noted. Please refer to note. Unfortunately patient has a drug abuse and could not be sent home on IV antibiotics. 06/24/2019-patient has endocarditis not a candidate to go home with an IV antibiotic therapy. Patient may need a SANJU this week. pt is presently on IV cefepime. 06/25/2019-patient has history of endocarditis secondary to percent 10 to use of IV drug abuse. Admitted with fever and chills. Blood cultures came back positive for pseudomonas aeruginosa latest blood cultures are negative. Patient is presently on cefepime and p.o. ciprofloxacin. Plan is to arrange for SANJU after 01 July at this hospital. Last night patient has no fever but Reiger's and chills. To closely monitor her medical condition plan is to move her to [facility] today. 06/26/2019-unfortunately the SANJU service is not available yet. The patient will continue her antibiotic therapy. She will need 6 weeks from the first set of blood cultures that were no growth. 06/27/2019-no changes to the treatment plan. 06/28/2019-she is complaining of plantar fasciitis. Achilles tendons are nontender and appear intact. Will monitor while on quinolone therapy. 06/29/2019-no change in therapy at this time. Expected end date July 30. 07/02/2019-patient is admitted with endocarditis now the plan is to arrange for SANJU after 09 July here at [place]. In the meantime plan is to continue IV antibiotic therapy. Sedated 32 of IV antibiotic therapy patient is presently on IV cefepime and Cipro floxacillin 750 mg p.o. twice a day. 07/03/2019-patient is scheduled for SANJU after July 10. Presently on IV cefepime and p.o. Cipro floxacillin as per ID recommendations. She is going to complete the antibiotic therapy on July 30. 07/04/2019-patient admitted with endocarditis on IV cefepime and p.o. Cipro floxacillin. Plan to arrange for SANJU next week. 07/05/2019-patient is on IV cefepime, p.o. Cipro floxacillin and antibiotic course will be finished on July 30. Possible SANJU next week. 07/06/2019-patient is presently on IV cefepime, p.o. Cipro floxacillin for endocarditis. Plan to have a SANJU next week. Plan is to continue IV antibiotic therapy until #60. 07/07/2019-patient is presently on IV cefepime and p.o. Cipro floxacillin for endocarditis patient may go for a SANJU this week 07/08/2019-patient is presently on IV cefepime and Cipro floxacillin for endocarditis request for SANJU placed for tomorrow. 07/09/2019-patient has a SANJU done this morning Dr. Miguel Ángel watson called me to discuss the findings he thinks patient might have aortic valve vegetation. P ethan is to continue the IV antibiotics as per ID recommendations. 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 Status post tricuspid valve replacement September 2018 at [facility]. Presented to ED with dull retrosternal chest pain which has been present since valve replacement. Was a started started on IV vancomycin by Dr. Bowen hospitalist at [facility]. 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 [facility] on regional diversion at the admission time and was admitted here at [facility]. 05/21/2019. TTE LVEF 60%. No thrombus or vegetations noted. Severe tricuspid regurgitation. RSVP 48 to 53 mmHg.05/27/2019 Started on empiric broad-spectrum IV antibiotics. PICC line placed on 05/22/2018 on the left basilic vein. PICC line removed on 06/14/2019 as per ID recommendation. PICC line tip sent to culture. Multiple positive blood cultures for pseudomonas aeruginosa. Last negative blood culture 05/31/2019. Plan as per #1 06/24/2019-blood cultures came back positive for Pseudomonas aeruginosa on 05 29. Latest blood cultures are negative. As per ID recommendations PICC line was removed on . As listed above latest cultures are negative. Plan is to continue the present management. 06/25/2019-blood cultures from 05/29/2019 came back positive for Pseudomonas aeruginosa as per ID recommendations patient is on p.o. Cipro floxacillin and IV cephapirin. Waiting for a SANJU procedure after 01 July. Cultures are negative. Latest 06/26/2019-multiple repeated blood cultures are negative. Continue current treatment regimen. 06/29/2019-as above 07/02/2019-latest blood cultures from 06/25/2019 are negative. 07/04/2019-latest blood cultures are negative. Patient has endocarditis. History of IV drug abuse. SANJU is scheduled for next week. Plan is to continue IV cefepime and p.o. Cipro floxacillin. 07/05/2019-latest blood cultures are negative from 06/25 2019. She had a history of IV drug abuse admitted for endocarditis. Possible SANJU next week. Plan is to continue cefepime and p.o. ciprofloxacin. 07/06/2019-latest blood cultures are negative. Prior blood cultures are positive for Pseudomonas aeruginosa and patient getting treatment for endocard itis. For possible SANJU next week. Plan is to continue antibiotic therapy until July 30. 07/07/2019-initial cultures came back positive for Pseudomonas aeruginosa and latest blood cultures are negative. Patient is receiving IV cephapirin and p.o. Cipro plan is to arrange for a SANJU on Sunday.\ 07/08/2019-initial blood cultures are positive for pseudomonas aeruginosa and follow-up blood cultures are negative. Patient is scheduled for a SANJU tomorrow and to continue IV cefepime and p.o. Cipro floxacillin. 07/09/2019-blood cultures are positive for pseudomonas aeruginosa initially on the repeat blood cultures came back negative. Presently on IV cefepime and p.o. Cipro floxacillin. SANJU shows aortic valve vegetation. Plan is to continue the antibiotic therapy. (3) IV drug abuse Is this a current diagnosis for this admission?: Yes Plan: Persistent IV drug abuse. Unfortunately patient seems to be abusing drugs while in the hospital. At times patient seems to be too sleepy. UDS on 06/08/2019 for back positive for opiates. Which was confirmed as morphine. Only on Subutex and tramadol in the hospital. Patient was advised on abstinence from recreational drug abuse. Currently on on Subutex since 05/27/2019 and tramadol. Was encouraged to rehab admission one day before discharge. 06/24/2019-patient has history of IV drug abuse. Counseling was provided today. 06/26/2019-continue Suboxone 06/29/2019-suspected self injection last night. Patient reports tachycardia was from using vape. Had a long discussion about compliance with hospital rules and treatment regimen. 07/02/2019-no complaints of any pains today. She is receiving Subutex and tramadol in the hospital. (4) Abdominal pain Qualifiers: Abdominal location: generalized Qualified Code(s): R10.84 - Generalized abdominal pain Is this a current diagnosis for this admission?: Yes Plan: Resolved. CT abdomen pelvis 06/06/2019 found no acute findings except for severe constipation. History of cholecystectomy. History of hepatitis C. History of hepatic steatosis. Lipase WNL. Continue beta-blockers and supportive measures. Continue bowel regimen. Encourage ambulation and high-fiber diet. 06/24/2019-patient came with complaints of abdominal pain. Which was resolved. Lipase levels are within normal limits. 06/26/2019-the patient does have history of hepatitis C. Since the rapid response 2 nights ago the patient exhibits increased LFTs. She does have a history of hepatitis C. I will recheck the liver enzymes and if they continue to increase I will obtain imaging of the abdomen. 06/27/2019-we discussed the elevated liver enzymes. She cannot remember when her last evaluation for hepatitis C was. I will check a hep C RNA level. We will continue to monitor the chemistries. 06/28/2019-liver enzymes are slowly improving. Unsure of the spike. Could be related to long-term antibiotics. We will continue to monitor. 07/02/19-patient has history of cholecystectomy, history of hepatitis C, history of hepatic steatosis lipase levels are within normal limits recently no complaints of abdominal pains. (5) Anemia Qualifiers: Anemia type: iron deficiency Iron deficiency anemia type: unspecified iron deficiency Qualified Code(s): D50.9 - Iron deficiency anemia, unspecified Is this a current diagnosis for this admission?: Yes Plan: Microcytic. Likely combination of anemia of chronic disease and iron deficiency anemia. Denies any easy bleeding, nosebleeds, hematemesis, hemoptysis, hematochezia, vaginal bleeding or melena. 05/30/2019. Iron panel. Serum iron 18.8, TIBC 270, saturation 7%, ferritin 213, folate 5.53, B12 folate 306, 06/08/2019. Status post 2 PRBC transfusion. Daily H&H, monitor for bleeding, supportive transfusions, ferrous sulfate. 06/24/2019-patient received 2 units of PRBC. During the hospital stay. Latest hemoglobin is 11.4. Stable. 06/25/2019-patient received 2 units of PRBC during the hospital stay latest hemoglobin is 11.4 plan is to closely trend the hemoglobin on daily basis. 06/26/2019-continue to monitor hemoglobin. 07/02/2019-patient's low latest hemoglobin is 10.3 stable. #6 ) plantar fasciitis-the patient developed tenderness under the arch of the left foot. I had physical therapy see the patient. They believe it is plantar fasciitis. She is on quinolone therapy long-term. This can have an adverse effect on tendons. We will continue to monitor. Physical therapy provided exercise plan for the patient. 06/29/2019-patient reports increased pain. I have added IV Toradol as an anti- inflammatory and physical therapy is working with her. 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 This puts the stop date at approximately July 14. She should still have a SANJU once that service is finally organized and offered. Anemia-continue iron supplement Drug abuse-continue Subutex Neuropathy-continue Neurontin Plantar fasciitis-she is working with physical therapy. Toradol is available. Consider wrapping her foot for support. Pain management-avoid narcotics completely 7.hyperkalemia Potassium today is 5.5 patient refused to take Kayexalate. to Recheck the potassium levels later on this evening. 07/04/2019-patient's potassium today 6.6 to Kayexalate and dextrose along with insulin IV to bring the potassium down repeat the potassium levels this afternoon. 07/05/2019-patient serum potassium is 5.5 today came down from 6.6 she was given Kayexalate along with the D50 1 amp and 8 units of regular insulin IV plan is to repeat the dose of 1 amp D50 and 6 units of regular insulin IV. Patient refusing Kayexalate. 07/06/2019-serum potassium is persistently high to start her on low potassium diet from today. 07/07/2019-latest serum potassium levels is 5.2 to recheck the labs today. Patient is on low potassium diet. 07/08/2019-patient serum potassium today is 4.9 hyperkalemia is resolved.
--- NOTE | 2019-07-09 11:10 | XCELERA REPORT ---
Study ID: [id number] Transesophageal Echocardiogram Report Name: HONEY GRESHAM Age: 43 yrs Gender: Female : 1975 Patient Status: Inpatient Patient Location: [address] [place] [address] Study Date: 07/09/2019 07:44 AM History: IV Drug use Endocarditis Valve replacement surgery HR: 92 BP: 100/70 mmHg Reason For Study: endocarditis Ordering Physician: LILIANE CLAYTON Performed By: Sherie Montes Interpretation Summary Left ventricular systolic function is normal. Ejection Fraction = >55%. The right ventricle is normal in size and function. There is a prosthetic aortic valve. AV max=3.32 m/s Mean gradient=29 mm Hg There is no pericardial effusion. There is a small vegetation or mass on the aortic valve(08 cm X 0.8 cm). Results communicated to Dr. Brown at 0849 after end of study. Procedure A complete two-dimensional transesophageal echocardiogram was performed (2D, spectral and color flow Doppler). Informed consent for Transesophageal Echocardiogram, and use of a contrast agent as needed, was obtained prior to the procedure. The patient was brought to the Endoscopy suite in a fasting state. An intravenous line was placed. A topical anesthetic agent was used for oropharangeal anesthesia. A bite block was inserted. IV conscious sedation was administered using Midazolam 2 mg IV and Fentanyl 50 mcg IV. The patient's vital signs, including blood pressure, heart rate, pulse oximetry and cardiac rhythm were monitored thoughout the procedure. A multifrequency, mutliplane transesophageal echocardiographic endoscope was inserted and manipulated in the standard fashion to achieve multiplane views. The transesophageal probe was passed without difficulty. The usual views were obtained; basal, mid- esophageal, transgastric and aortic views. The patient tolerated the procedure well without evidence of orophangeal or esophageal trauma. Subsequent to all the images being obtained the probe was removed with out trauma. Left Ventricle The left ventricle is normal in size. There is no thrombus. There is normal left ventricular wall thickness. Left ventricular systolic function is normal. The left ventricular ejection fraction is grossly normal. Ejection Fraction = >55%. The left ventricular wall motion is normal. Right Ventricle The right ventricle is normal in size and function. Atria The interatrial septum is intact with no evidence for an atrial septal defect. There is no Doppler evidence for an atrial septal defect. The left atrial size is normal. No thrombus is detected in the left atrial appendage. Right atrial size is normal. Mitral Valve The mitral valve is normal in structure and function. There is no evidence of mitral valve prolapse. There is no vegetation seen on the mitral valve. There is trace mitral regurgitation. Tricuspid Valve The tricuspid valve is not well visualized, but is grossly normal. There is no tricuspid valve vegetation. There is trace tricuspid regurgitation. Aortic Valve There is a small vegetation or mass on the aortic valve. No aortic regurgitation is present. There is a prosthetic aortic valve. The valve opening cannot be assessed due to imaging artifacts from the prosthesis. The gradient is abnormal for this prosthetic aortic valve. AV max=3.32 m/s Mean gradient=29 mm Hg. Pulmonic Valve The pulmonic valve is not well visualized. Arteries The aortic root is normal size. Pericardium There is no pericardial effusion. MMode/2D Measurements & Calculations LVOT diam: 1.9 cm LVOT area: 3.0 cm2 Doppler Measurements & Calculations Ao V2 max: 327.8 cm/sec LV V1 max P.3 mmHg Ao max P.0 mmHg LV V1 mean P.2 mmHg Ao V2 mean: 241.8 cm/sec LV V1 max: 103.7 cm/sec Ao mean P.8 mmHg LV V1 mean: 70.1 cm/sec Ao V2 VTI: 72.5 cm LV V1 VTI: 23.5 cm PHILLIP(I,D): 0.96 cm2 PHILLIP(V,D): 0.94 cm2 SV(LVOT): 69.7 ml : LILIANE CLAYTON Anil
[2019-07-09] MEDS: ATORVASTATIN CALCIUM 40 MG TABLET PO SCH (22:39)
[2019-07-09] MEDS: QUETIAPINE FUMARATE 25 MG TABLET PO SCH (22:41)
[2019-07-10] MEDS: CEFEPIME 2 GM/D5W RTU 2 GM/50 ML RTUPB IV SCH ×3 (05:25→18:37)
[2019-07-10] MEDS: GABAPENTIN 300 MG CAPSULE PO SCH ×3 (05:27→21:54)
[2019-07-10] MEDS: PANTOPRAZOLE SODIUM 40 MG TABLET.DR PO SCH (05:27)
[2019-07-10] MEDS: TIZANIDINE HCL 4 MG TABLET PO PRN ×3 (05:38→21:54)
--- NOTE | 2019-07-10 09:42 | PDOC PROGRESS REPORT ---
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 She presents with dull retrosternal chest pain which has been present since valve replacement has developed fever and some shortness of breath prompting evaluation emergency room where she is found to have sepsis with hypotension, tachycardia, leukocytosis of 19,000, hypo-natremia hypomagnesemia hypo-kalemia and thrombocytopenia. She started on IV vancomycin and Dr. Bowen hospitalist at [facility] is consulted. 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 Subsequent cultures did not grow. [facility] is currently on regional diversion and are subsequently unable to accept her for transfer. She is referred to the hospitalist for admission. 06/04/2019. No acute events overnight. 06/05/2017. No acute events overnight. Denies any fever, chills, nausea, v omiting, diarrhea, constipation or any urinary symptoms. 06/06/2019. No acute events overnight. Continues to complain of chronic right upper quadrant abdominal pain. Denies any fever, chills, nausea, vomiting, diarrhea, constipation or any urinary symptoms. Patient is p.o. tolerant, ambulatory, having normal bowel and bladder movements. 06/07/2019. No acute events overnight. Significant improvement of abdominal pain after having a large bowel movement this morning. Patient is ambulatory, in no apparent distress, p.o. tolerant. Patient has been noted to have low blood pressure however she is asymptomatic. 06/08/2019. No acute events overnight, patient is comfortably sitting in bed, in no apparent distress, abdominal pain has improved significantly, ambulatory, p.o. tolerant, having normal bowel bladder movement, denies any fever, chills, nausea, vomiting, diarrhea, constipation or any urinary symptoms. Patient hemoglobin is 7.7 today denies any hematemesis, hemoptysis, melena, vaginal bleeding or any hematochezia. Stool guaiac has been negative. We will give 2 PRBC today. 06/09/2019. No acute events overnight. Comfortably sitting in bed enjoying her breakfast. In no apparent distress. Abdominal pain has resolved, ambulatory, having normal bladder and bowel movement. Denies any fever, chills, nausea, vomiting, diarrhea, constipation or any urinary symptoms. 06/14/2019. No acute events overnight. Comfortably sitting in bed eating ice chips, no apparent distress, alert oriented x3, denies any abdominal pain, ambulatory, p.o. tolerant, having normal bowel and bladder movements, denies any fever, chills, nausea, vomiting, diarrhea, or any urinary symptoms. Discussed with patient about the need for PICC line to come out as it was placed on 05/22/2019 and has had several positive blood cultures since then. As per ID recommendation will remove PICC line. 06/15/2019. No acute events overnight. Comfortably sitting in bed enjoying her breakfast. Alert oriented x3, denies any fever, chills, nausea, vomiting, diarrhea, constipation or any urinary symptoms. PICC line removed on 06/14/2019. PICC line tip has been sent to culture. 06/16/2019. No acute events overnight. Comfortably sitting in bed enjoying her breakfast. Alert oriented x3, denies any fever, chills, nausea, vomiting, diarrhea, constipation or any urinary symptoms. 06/17/2018. No acute events overnight. Resting in bed. Complaining bed. Complaining of chronic back pain, alert oriented x3, denies any fever, chills, nausea, vomiting, diarrhea, constipation or any urinary symptoms. 06/18/2019. No acute events overnight. Comfortably sitting in bed, enjoying her breakfast, back pain has improved since being started on Percocet, denies any fever, chills, nausea, vomiting, diarrhea, constipation or any urinary symptoms. P.o. tolerant, ambulatory, having normal bowel bladder movement. 06/19/2019. No acute events overnight. Denies any fever, chills, nausea, vomiting, diarrhea, constipation or any urinary symptoms. P.o. tolerant, ambulatory, having normal bowel bladder movement. 06/20/2019. Complaining of having nightmares overnight, could not get a good night sleep, back pain is improving with tizanidine and Percocet, denies any fever, chills, nausea, shortness of breath, diarrhea or any constipation. P.o. tolerant, ambulatory having normal bladder and bowel movements. 06/21/2019. No acute events overnight. Denies any fever, chills, nausea, shortness of breath, diarrhea or any constipation. P.o. tolerant, ambulatory having normal bladder and bowel movements. 06/22/2019. No acute events overnight. Denies any fever, chills, nausea, shortness of breath, diarrhea or any constipation. P.o. tolerant, ambulatory having normal bladder and bowel movements. 06/23/2019. No acute events overnight, patient is sitting in bed, pleasant, enjoying her breakfast, lower back pain is improving, denies any ,nausea, vomiting, diarrhea, constipation or any urinary symptoms. Has been refusing her docusate, Cymbalta, pantoprazole and was seems to be discontinued as Cymbalta makes her very anxious. 06/24/2019-no acute events in the last 24 hours. Afebrile. Patient is com fortable in the bed talking to the family members on the phone. 06/25/2019-response was called last night patient found to be shivering associated with chills. Blood pressure was extremely elevated. Patient was given Motrin and repeat blood cultures was done. Patient stable this morning. To closely monitor her medical condition plan is to move her from medical floor to IMCU today. Patient denies any complaints. Alert and awake communicating well. 07/01/2019. No acute events overnight, patient comfortably resting in bed in no apparent distress, still complaining of chronic back pain, was to be placed back on Percocet, tizanidine helping, denies any fever, chills, nausea, vomiting, diarrhea, constipation or any urinary symptoms. Reporting that her plantar fasciitis has totally resolved. 07/02/2019-no acute events in the last 24 hours. Afebrile. She is scheduled for SANJU after the of this month at this facility. Meantime will continue the antibiotic therapy until August 02 as per ID. Latest blood cultures are negative. 07/03/2019-no acute events in the last 24 hours. Patient is afebrile. Serum potassium came back 5.5 plan to give Kayexalate with the patient is refusing. 07/04/2019-serum potassium level 6.6 today. Yesterday's 5.5 she refused to take Kayexalate yesterday. After long discussion she agreed to take Kayexalate and we can to repeat the potassium levels this afternoon. pt Complaints of not feeling well requesting 1 extra dose of Percocet. 07/05/2019-serum potassium came down to 5.[address] her on low potassium diet and to give D50 1 ampoule along with 6 units of regular insulin IV. No acute events in the last 24 hours. Afebrile. Plan is to continue iv cefepime I am and p.o. Cipro floxacillin for endocarditis. She is going to have a SANJU next week. 07/06/2019-no acute events in the last 24 hours. Patient is afebrile. To start her on low potassium diet today. Serum potassium is 5.2. 07/07/2019-no acute events in the last 24 hours. Patient states she is unable to sleep because of the numbers in the hands and feet requesting to increase the dose of Zanaflex and gabapentin from today. 07/08/2019-no acute events in the last 24 hours. Afebrile. Patient is complaining of back pain wants to increase her Zanaflex and gabapentin for her numbness in the hands and feet and for back pain she is requesting Tylenol. SANJU request was placed for of this month. no Acute events in the last 24 hours afebrile. 07/09/2019-no acute events in the last 24 hours. Afebrile. Patient went for a SANJU this morning. Dr. Del Rosario and he called me to discuss the findings according to him patient might have vegetation on the aortic valve, his impression is patient has an aortic valve surgery instead of tricuspid valve surgery that was documented in the previous notes. The plan is to continue IV antibiotic therapy as per ID recommendations until July 30. 07/10/2019-no acute events in the last 24 hours. Afebrile. 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 Presently on IV cephapirin and p.o. Cipro floxacillin plan is to continue the antibiotics until jul 30. Reason For Visit: IV DRUG ABUSE,SEPSIS,ENDOCARDITIS Physical Exam Vital Signs: Temp Pulse Resp BP Pulse Ox 97.8 F 64 18 93/54 L 100 07/10/19 08:00 07/10/19 08:00 07/10/19 08:00 07/10/19 08:00 07/10/19 08:00 Intake & Output 07/09/19 07/10/19 07/11/19 06:59 06:59 06:59 Intake Total 2045 1540 Output Total 400 Balance 2045 1140 Weight 89.1 kg 91.2 kg General appearance: PRESENT: no acute distress, cooperative Head exam: PRESENT: atraumatic Eye exam: PRESENT: PERRLA Mouth exam: PRESENT: moist, tongue midline Teeth exam: PRESENT: poor dentation Neck exam: ABSENT: carotid bruit, JVD, lymphadenopathy, thyromegaly Respiratory exam: PRESENT: decreased breath sounds Cardiovascular exam: PRESENT: RRR. ABSENT: diastolic murmur, rubs, systolic murmur GI/Abdominal exam: PRESENT: normal bowel sounds, soft. ABSENT: distended, guarding, mass, organolmegaly, rebound, tenderness Rectal exam: PRESENT: deferred Extremities exam: PRESENT: full ROM. ABSENT: calf tenderness, clubbing, pedal edema Neurological exam: PRESENT: alert, awake, oriented to person, oriented to place, oriented to time, oriented to situation, CN II-XII grossly intact. ABSENT: motor sensory deficit Psychiatric exam: PRESENT: appropriate affect, normal mood. ABSENT: homicidal ideation, suicidal ideation Results Laboratory Results: 07/07/19 10:45 07/07/19 10:45 05/21/19 05/22/19 05/22/19 23:07 02:06 11:00 Creatine Kinase CK-MB (CK-2) Troponin I 0.098 0.098 0.070 NT-Pro-B Natriuret Pep 05/22/19 05/22/19 05/22/19 14:00 14:35 20:04 Creatine Kinase CK-MB (CK-2) Troponin I Cancelled 0.060 0.037 NT-Pro-B Natriuret Pep 05/28/19 05/28/19 06/02/19 00:15 00:15 00:20 Creatine Kinase < 20 L < 20 L CK-MB (CK-2) 0.49 Troponin I 0.077 NT-Pro-B Natriuret Pep 06/02/19 06/02/19 06/02/19 00:20 06:15 06:15 Creatine Kinase < 20 L CK-MB (CK-2) 1.53 1.39 Troponin I 0.194 0.171 NT-Pro-B Natriuret Pep 06/02/19 06/02/19 06/28/19 13:30 13:30 03:40 Creatine Kinase < 20 L 26 L CK-MB (CK-2) 1.68 Troponin I 0.175 NT-Pro-B Natriuret Pep 4000 H Impressions: Chest X-Ray 05/21/19 23:04 IMPRESSION: 1. No acute pulmonary findings. 2. Previous sternotomy Abdomen Ultrasound 05/28/19 00:00 IMPRESSION: Mild splenomegaly. No acute findings otherwise. Abdomen/Pelvis CT 06/06/19 00:00 IMPRESSION: 1. Gastric distention and debris. Ileus. Constipation. 2. Normal appendix. No acute abdominopelvic abnormality. Guidance Fluoroscopy 06/23/19 00:00 IMPRESSION: SUCCESSFUL PLACEMENT OF A 5 FR DUAL LUMEN 38 CM PICC IN THE LEFT BASILIC VEIN. Interventional Vascular Procedure 06/23/19 00:00 IMPRESSION: SUCCESSFUL PLACEMENT OF A 5 FR DUAL LUMEN 38 CM PICC IN THE LEFT BASILIC VEIN. PICC Line Insertion 06/23/19 00:00 IMPRESSION: SUCCESSFUL PLACEMENT OF A 5 FR DUAL LUMEN 38 CM PICC IN THE LEFT BASILIC VEIN. Foot X-Ray 06/29/19 00:00 IMPRESSION: NEGATIVE STUDY OF THE LEFT FOOT. NO EXPLANATION FOR PAIN. Assessment and Plan - Diagnosis (1) Endocarditis Qualifiers: Endocarditis type: infective Is this a current diagnosis for this admission?: Yes Plan: 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 Status post tricuspid valve replacement September 2018 at [facility]. 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 Presented to ED with dull retrosternal chest pain which has been present since valve replacement. Was a started started on IV vancomycin by Dr. Bowen hospitalist at [facility]. 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 [facility] on regional diversion at the admission time and was admitted here at [facility]. 05/21/2019. TTE LVEF 60%. No thrombus or vegetations noted. Severe tricuspid regurgitation. RSVP 48 to 53 mmHg.05/27/2019 Started on empiric broad-spectrum IV antibiotics. PICC line placed on 05/22/2018 on the left basilic vein. PICC line removed 06/14/2019 as per ID recommendation. Please refer to note. Tip was cultured which came back negative. Multiple positive blood cultures for pseudomonas aeruginosa. Last negative blood culture 05/31/2019. Last negative blood culture 05/31/2019. Day 23 of 56 days. Expected completion date 07/30/2019. Day 25 IV cefepime. Day 13 Ciprofloxacin 750 mg p.o. twice daily. Day 31 IV antibiotics. Received 10 days of IV levofloxacin. Switch to ciprofloxacin IV as per ID recommendation. I have been informed that [facility] will be able to do SANJU starting early June. Patient has stable and receiving IV antibiotics SANJU can wait until early June if not will call [facility] again for transfer for SANJU. 06/09/2019. Infectious disease consulted. Recommendations noted. Please refer to note. Unfortunately patient has a drug abuse and could not be sent home on IV antibiotics. 07/03/2019-patient has endocarditis not a candidate to go home with an IV antibiotic therapy. Patient may need a SANJU this week. pt is presently on IV cefepime. 07/04/2019-patient has history of endocarditis on IV antibiotic therapy plan for SANJU next week. Patient is presently-IV cefepime and p.o. ciprofloxacin. 07/05/2019-patient is receiving IV cephapirin and p.o. ciprofloxacin for endocarditis possible SANJU next week. pt patient is going to complete the antibi otic course on July 30. 1016 (2) Bacteremia due to Pseudomonas Is this a current diagnosis for this admission?: Yes (3) IV drug abuse Is this a current diagnosis for this admission?: Yes (4) Abdominal pain Qualifiers: Abdominal location: generalized Qualified Code(s): R10.84 - Generalized abdominal pain Is this a current diagnosis for this admission?: Yes (5) Anemia Qualifiers: Anemia type: iron deficiency Iron deficiency anemia type: unspecified iron deficiency Qualified Code(s): D50.9 - Iron deficiency anemia, unspecified Is this a current diagnosis for this admission?: Yes - Plan Summary Summary: (1) Endocarditis Qualifiers: Endocarditis type: infective Is this a current diagnosis for this admission?: Yes Plan: 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 Status post tricuspid valve replacement September 2018 at [facility]. 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 Presented to ED with dull retrosternal chest pain which has been present since valve replacement. Was a started started on IV vancomycin by Dr. Bowen hospitalist at [facility]. 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 [facility] on regional diversion at the admission time and was admitted here at [facility]. 05/21/2019. TTE LVEF 60%. No thrombus or vegetations noted. Severe tricuspid regurgitation. RSVP 48 to 53 mmHg.05/27/2019 Started on empiric broad-spectrum IV antibiotics. PICC line placed on 05/22/2018 on the left basilic vein. PICC line removed 06/14/2019 as per ID recommendation. Please refer to note. Tip was cultured which came back negative. Multiple positive blood cultures for pseudomonas aeruginosa. Last negative blood culture 05/31/2019 Last negative blood culture 05/31/2019. Day 23 of 56 days. Expected completion date 07/30/2019. Day 25 IV cefepime. Day 13 Ciprofloxacin 750 mg p.o. twice daily. Day 31 IV antibiotics. Received 10 days of IV levofloxacin. Switch to ciprofloxacin IV as per ID recommendation. I have been informed that [facility] will be able to do SANJU starting early June. Patient has stable and receiving IV antibiotics SANJU can wait until early June if not will call [facility] again for transfer for SANJU. 06/09/2019. Infectious disease consulted. Recommendations noted. Please refer to note. Unfortunately patient has a drug abuse and could not be sent home on IV antibiotics. 06/24/2019-patient has endocarditis not a candidate to go home with an IV antibiotic therapy. Patient may need a SANJU this week. pt is presently on IV cefepime. 06/25/2019-patient has history of endocarditis secondary to percent 10 to use of IV drug abuse. Admitted with fever and chills. Blood cultures came back positive for pseudomonas aeruginosa latest blood cultures are negative. Patient is presently on cefepime and p.o. ciprofloxacin. Plan is to arrange for SANJU after 01 July at this hospital. Last night patient has no fever but Reiger's and chills. To closely monitor her medical condition plan is to move her to [facility] today. 06/26/2019-unfortunately the SANJU service is not available yet. The patient will continue her antibiotic therapy. She will need 6 weeks from the first set of blood cultures that were no growth. 06/27/2019-no changes to the treatment plan. 06/28/2019-she is complaining of plantar fasciitis. Achilles tendons are nontender and appear intact. Will monitor while on quinolone therapy. 06/29/2019-no change in therapy at this time. Expected end date July 30. 07/02/2019-patient is admitted with endocarditis now the plan is to arrange for SANJU after 09 July here at [place]. In the meantime plan is to continue IV antibiotic therapy. Sedated 32 of IV antibiotic therapy patient is presently on IV cefepime and Cipro floxacillin 750 mg p.o. twice a day. 07/03/2019-patient is scheduled for SANJU after July 10. Presently on IV cefe pime and p.o. Cipro floxacillin as per ID recommendations. She is going to complete the antibiotic therapy on July 30. 07/04/2019-patient admitted with endocarditis on IV cefepime and p.o. Cipro floxacillin. Plan to arrange for SANJU next week. 07/05/2019-patient is on IV cefepime, p.o. Cipro floxacillin and antibiotic course will be finished on July 30. Possible SANJU next week. 07/06/2019-patient is presently on IV cefepime, p.o. Cipro floxacillin for endocarditis. Plan to have a SANJU next week. Plan is to continue IV antibiotic therapy until #60. 07/07/2019-patient is presently on IV cefepime and p.o. Cipro floxacillin for endocarditis patient may go for a SANJU this week 07/08/2019-patient is presently on IV cefepime and Cipro floxacillin for endocarditis request for SANJU placed for tomorrow. 07/09/2019-patient has a SANJU done this morning Dr. Miguel Ángel watson called me to discuss the findings he thinks patient might have aortic valve vegetation. Plan is to continue the IV antibiotics as per ID recommendations. 07/10/2019-patient is going to receive IV cefepime and p.o. Cipro floxacillin for endocarditis. SANJU was done found to have a vegetation in the right aortic wall. 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 Status post tricuspid valve replacement September 2018 at [facility]. Presented to ED with dull retrosternal chest pain which has been present since valve replacement. Was a started started on IV vancomycin by Dr. Bowen hospitalist at [facility]. 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 [facility] on regional diversion at the admission time and was admitted here at [facility]. 05/21/2019. TTE LVEF 60%. No thrombus or vegetations noted. Severe tricuspid regurgitation. RSVP 48 to 53 mmHg.05/27/2019 Started on empiric broad-spectrum IV antibiotics. PICC line placed on 05/22/2018 on the left basilic vein. PICC line removed on 06/14/2019 as per ID recommendation. PICC line tip sent to culture. Multiple positive blood cultures for pseudomonas aeruginosa. Last negative blood culture 05/31/2019. Plan as per #1 06/24/2019-blood cultures came back positive for Pseudomonas aeruginosa on 05 29. Latest blood cultures are negative. As per ID recommendations PICC line was removed on . As listed above latest cultures are negative. Plan is to continue the present management. 06/25/2019-blood cultures from 05/29/2019 came back positive for Pseudomonas aeruginosa as per ID recommendations patient is on p.o. Cipro floxacillin and IV cephapirin. Waiting for a SANJU procedure after 01 July. Cultures are negative. Latest 06/26/2019-multiple repeated blood cultures are negative. Continue current louann atment regimen. 06/29/2019-as above 07/02/2019-latest blood cultures from 06/25/2019 are negative. 07/04/2019-latest blood cultures are negative. Patient has endocarditis. History of IV drug abuse. SANJU is scheduled for next week. Plan is to continue IV cefepime and p.o. Cipro floxacillin. 07/05/2019-latest blood cultures are negative from 06/25 2019. She had a history of IV drug abuse admitted for endocarditis. Possible SANJU next week. Plan is to continue cefepime and p.o. ciprofloxacin. 07/06/2019-latest blood cultures are negative. Prior blood cultures are positive for Pseudomonas aeruginosa and patient getting treatment for endocarditis. For possible SANJU next week. Plan is to continue antibiotic therapy until July 30. 07/07/2019-initial cultures came back positive for Pseudomonas aeruginosa and latest blood cultures are negative. Patient is receiving IV cephapirin and p.o. Cipro plan is to arrange for a SANJU on Sunday.\ 07/08/2019-initial blood cultures are positive for pseudomonas aeruginosa and follow-up blood cultures are negative. Patient is scheduled for a SANJU tomorrow and to continue IV cefepime and p.o. Cipro floxacillin. 07/09/2019-blood cultures are positive for pseudomonas aeruginosa initially on the repeat blood cultures came back negative. Presently on IV cefepime and p.o. Cipro floxacillin. SANJU shows aortic valve vegetation. Plan is to continue the antibiotic therapy. 10/10/2018-latest blood cultures are negative. 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 Plan is to continue the antibiotic therapy until July 30. (3) IV drug abuse Is this a current diagnosis for this admission?: Yes Plan: Persistent IV drug abuse. Unfortunately patient seems to be abusing drugs while in the hospital. At times patient seems to be too sleepy. UDS on 06/08/2019 for back positive for opiates. Which was confirmed as morphine. Only on Subutex and tramadol in the hospital. Patient was advised on abstinence from recreational drug abuse. Currently on on Subutex since 05/27/2019 and tramadol. Was encouraged to rehab admission one day before discharge. 06/24/2019-patient has history of IV drug abuse. Counseling was provided today. 06/26/2019-continue Suboxone 06/29/2019-suspected self injection last night. Patient reports tachycardia was from using vape. Had a long discussion about compliance with hospital rules and treatment regimen. 07/02/2019-no complaints of any pains today. She is receiving Subutex and tramadol in the hospital. (4) Abdominal pain Qualifiers: Abdominal location: generalized Qualified Code(s): R10.84 - Generalized abdominal pain Is this a current diagnosis for this admission?: Yes Plan: Resolved. CT abdomen pelvis 06/06/2019 found no acute findings except for severe constipation. History of cholecystectomy. History of hepatitis C. History of hepatic steatosis. Lipase WNL. Continue beta-blockers and supportive measures. Continue bowel regimen. Encourage ambulation and high-fiber diet. 06/24/2019-patient came with complaints of abdominal pain. Which was resolved. Lipase levels are within normal limits. 06/26/2019-the patient does have history of hepatitis C. Since the rapid res ponse 2 nights ago the patient exhibits increased LFTs. She does have a history of hepatitis C. I will recheck the liver enzymes and if they continue to increase I will obtain imaging of the abdomen. 06/27/2019-we discussed the elevated liver enzymes. She cannot remember when her last evaluation for hepatitis C was. I will check a hep C RNA level. We will continue to monitor the chemistries. 06/28/2019-liver enzymes are slowly improving. Unsure of the spike. Could be related to long-term antibiotics. We will continue to monitor. 07/02/19-patient has history of cholecystectomy, history of hepatitis C, history of hepatic steatosis lipase levels are within normal limits recently no comp laints of abdominal pains. (5) Anemia Qualifiers: Anemia type: iron deficiency Iron deficiency anemia type: unspecified iron deficiency Qualified Code(s): D50.9 - Iron deficiency anemia, unspecified Is this a current diagnosis for this admission?: Yes Plan: Microcytic. Likely combination of anemia of chronic disease and iron deficiency anemia. Denies any easy bleeding, nosebleeds, hematemesis, hemoptysis, hematochezia, vaginal bleeding or melena. 05/30/2019. Iron panel. Serum iron 18.8, TIBC 270, saturation 7%, ferritin 213, folate 5.53, B12 folate 306, 06/08/2019. Status post 2 PRBC transfusion. Daily H&H, monitor for bleeding, supportive transfusions, ferrous sulfate. 06/24/2019-patient received 2 units of PRBC. During the hospital stay. Latest hemoglobin is 11.4. Stable. 06/25/2019-patient received 2 units of PRBC during the hospital stay latest hemoglobin is 11.4 plan is to closely trend the hemoglobin on daily basis. 06/26/2019-continue to monitor hemoglobin. 07/02/2019-patient's low latest hemoglobin is 10.3 stable. #6 ) plantar fasciitis-the patient developed tenderness under the arch of the left foot. I had physical therapy see the patient. They believe it is plantar fasciitis. She is on quinolone therapy long-term. This can have an adverse effect on tendons. We will continue to monitor. Physical therapy provided exercise plan for the patient. 06/29/2019-patient reports increased pain. I have added IV Toradol as an anti- inflammatory and physical therapy is working with her. 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 This puts the stop date at approxim ately July 14. She should still have a SANJU once that service is finally organized and offered. Anemia-continue iron supplement Drug abuse-continue Subutex Neuropathy-continue Neurontin Plantar fasciitis-she is working with physical therapy. Toradol is available. Consider wrapping her foot for support. Pain management-avoid narcotics completely 7.hyperkalemia Potassium today is 5.5 patient refused to take Kayexalate. to Recheck the potassium levels later on this evening. 07/04/2019-patient's potassium today 6.6 to Kayexalate and dextrose along with insulin IV to bring the potassium down repeat the potassium levels this afternoon. 07/05/2019-patient serum potassium is 5.5 today came down from 6.6 she was given Kayexalate along with the D50 1 amp and 8 units of regular insulin IV plan is to repeat the dose of 1 amp D50 and 6 units of regular insulin IV. Patient refusing Kayexalate. 07/06/2019-serum potassium is persistently high to start her on low potassium diet from today. 07/07/2019-latest serum potassium levels is 5.2 to recheck the labs today. Patient is on low potassium diet. 07/08/2019-patient serum potassium today is 4.9 hyperkalemia is resolved. - Time Time Spent with patient: 25-34 minutes Medications reviewed and adjusted accordingly: Yes Anticipated discharge: Home
[2019-07-10] MEDS: NORMAL SALINE 10 ML SDV (SCHEDULED) IV SCH ×2 (11:03→21:57)
[2019-07-10] MEDS: MAGNESIUM OXIDE 400 MG TABLET PO SCH ×2 (11:04→18:37)
[2019-07-10] MEDS: METOPROLOL TARTRATE 25 MG TABLET PO SCH ×2 (11:04→21:55)
[2019-07-10] MEDS: LACTOBACILLUS ACIDOPHILUS 250 MG TAB PO SCH ×2 (11:04→18:37)
[2019-07-10] MEDS: BUPRENORPHINE HCL 2 MG SUBLINGUAL TABLET SL SCH ×2 (11:05→21:56)
[2019-07-10] MEDS: HEPARIN SOD (PORCINE) 5,000 UNIT/ML 1 ML VIAL SUBCUT SCH ×2 (11:05→21:57)
[2019-07-10] MEDS: FERROUS SULFATE 325 MG TABLET PO SCH (11:05)
[2019-07-10] MEDS: CIPROFLOXACIN HCL 750 MG TABLET PO SCH ×2 (11:17→21:54)
[2019-07-10] MEDS: ATORVASTATIN CALCIUM 40 MG TABLET PO SCH (21:54)
[2019-07-10] MEDS: QUETIAPINE FUMARATE 25 MG TABLET PO SCH (21:54)
[2019-07-11] MEDS: ACETAMINOPHEN 325 MG TABLET PO PRN (00:48)
[2019-07-11] MEDS: CEFEPIME 2 GM/D5W RTU 2 GM/50 ML RTUPB IV SCH ×3 (01:04→17:43)
[2019-07-11] MEDS: TIZANIDINE HCL 4 MG TABLET PO PRN ×3 (05:00→21:08)
[2019-07-11] MEDS: PANTOPRAZOLE SODIUM 40 MG TABLET.DR PO SCH (05:00)
[2019-07-11] MEDS: GABAPENTIN 300 MG CAPSULE PO SCH ×3 (05:00→21:09)
[2019-07-11] MEDS: FERROUS SULFATE 325 MG TABLET PO SCH (10:07)
[2019-07-11] MEDS: CIPROFLOXACIN HCL 750 MG TABLET PO SCH ×2 (10:07→21:07)
[2019-07-11] MEDS: LACTOBACILLUS ACIDOPHILUS 250 MG TAB PO SCH ×2 (10:07→17:42)
[2019-07-11] MEDS: METOPROLOL TARTRATE 25 MG TABLET PO SCH ×2 (10:09→21:08)
[2019-07-11] MEDS: HEPARIN SOD (PORCINE) 5,000 UNIT/ML 1 ML VIAL SUBCUT SCH ×2 (10:09→21:09)
[2019-07-11] MEDS: MAGNESIUM OXIDE 400 MG TABLET PO SCH ×2 (10:09→17:42)
[2019-07-11] MEDS: NORMAL SALINE 10 ML SDV (SCHEDULED) IV SCH ×2 (10:11→21:09)
[2019-07-11] MEDS: BUPRENORPHINE HCL 2 MG SUBLINGUAL TABLET SL SCH ×2 (10:11→21:07)
--- NOTE | 2019-07-11 13:22 | PDOC PROGRESS REPORT ---
Subjective Progress Note for:: 07/11/19 Subjective:: The patient complains of increased muscle spasms. She also has been having vivid dreams and feels that her room is haunted. SANJU shows 8 mm vegetation on the aortic valve. Reason For Visit: IV DRUG ABUSE,SEPSIS,ENDOCARDITIS Physical Exam Vital Signs: Temp Pulse Resp BP Pulse Ox 97.5 F 64 16 100/51 L 97 07/11/19 10:05 07/11/19 10:05 07/11/19 10:05 07/11/19 10:05 07/11/19 10:05 Intake & Output 07/10/19 07/11/19 07/12/19 06:59 06:59 06:59 Intake Total 1540 1712 480 Output Total 400 Balance 1140 1712 480 Weight 91.2 kg 93.2 kg General appearance: PRESENT: no acute distress, cooperative, well-developed Head exam: PRESENT: atraumatic, normocephalic Ear exam: PRESENT: normal external ear exam. ABSENT: bleeding, drainage Respiratory exam: PRESENT: clear to auscultation sandrita, symmetrical, unlabored. ABSENT: accessory muscle use, rales, rhonchi, tachypnea, wheezes Cardiovascular exam: PRESENT: RRR, +S1, +S2, systolic murmur - 4/6 GI/Abdominal exam: PRESENT: normal bowel sounds, soft. ABSENT: distended, guarding, tenderness Extremities exam: PRESENT: full ROM. ABSENT: joint swelling, pedal edema Musculoskeletal exam: PRESENT: full ROM, normal inspection. ABSENT: deformity Neurological exam: PRESENT: alert, awake, oriented to person, oriented to place, oriented to time, oriented to situation, CN II-XII grossly intact Psychiatric exam: PRESENT: appropriate affect. ABSENT: agitated, anxious Focused psych exam: ABSENT: delusional, restlessness Results Laboratory Results: 07/07/19 10:45 07/07/19 10:45 05/21/19 05/22/19 05/22/19 23:07 02:06 11:00 Creatine Kinase CK-MB (CK-2) Troponin I 0.098 0.098 0.070 NT-Pro-B Natriuret Pep 05/22/19 05/22/19 05/22/19 14:00 14:35 20:04 Creatine Kinase CK-MB (CK-2) Troponin I Cancelled 0.060 0.037 NT-Pro-B Natriuret Pep 05/28/19 05/28/19 06/02/19 00:15 00:15 00:20 Creatine Kinase < 20 L < 20 L CK-MB (CK-2) 0.49 Troponin I 0.077 NT-Pro-B Natriuret Pep 06/02/19 06/02/19 06/02/19 00:20 06:15 06:15 Creatine Kinase < 20 L CK-MB (CK-2) 1.53 1.39 Troponin I 0.194 0.171 NT-Pro-B Natriuret Pep 06/02/19 06/02/19 06/28/19 13:30 13:30 03:40 Creatine Kinase < 20 L 26 L CK-MB (CK-2) 1.68 Troponin I 0.175 NT-Pro-B Natriuret Pep 4000 H Impressions: Chest X-Ray 05/21/19 23:04 IMPRESSION: 1. No acute pulmonary findings. 2. Previous sternotomy Abdomen Ultrasound 05/28/19 00:00 IMPRESSION: Mild splenomegaly. No acute findings otherwise. Abdomen/Pelvis CT 06/06/19 00:00 IMPRESSION: 1. Gastric distention and debris. Ileus. Constipation. 2. Normal appendix. No acute abdominopelvic abnormality. Guidance Fluoroscopy 06/23/19 00:00 IMPRESSION: SUCCESSFUL PLACEMENT OF A 5 FR DUAL LUMEN 38 CM PICC IN THE LEFT BASILIC VEIN. Interventional Vascular Procedure 06/23/19 00:00 IMPRESSION: SUCCESSFUL PLACEMENT OF A 5 FR DUAL LUMEN 38 CM PICC IN THE LEFT BASILIC VEIN. PICC Line Insertion 06/23/19 00:00 IMPRESSION: SUCCESSFUL PLACEMENT OF A 5 FR DUAL LUMEN 38 CM PICC IN THE LEFT BASILIC VEIN. Foot X-Ray 06/29/19 00:00 IMPRESSION: NEGATIVE STUDY OF THE LEFT FOOT. NO EXPLANATION FOR PAIN. Assessment and Plan - Diagnosis (1) Bacteremia due to Pseudomonas Is this a current diagnosis for this admission?: Yes Plan: 07/11/2019-for Pseudomonas endocarditis the patient is expected to be on antibiotics through July 26. SANJU did show a vegetation (8 mm) on the prosthetic aortic valve. We will need to discuss with her cardiac surgeon. (2) UTI (urinary tract infection) Qualifiers: Urinary tract infection type: acute cystitis Hematuria presence: without hematuria Qualified Code(s): N30.00 - Acute cystitis without hematuria Is this a current diagnosis for this admission?: Yes (3) Hypokalemia Is this a current diagnosis for this admission?: Yes (4) IV drug abuse Is this a current diagnosis for this admission?: Yes (5) Endocarditis Qualifiers: Endocarditis type: infective Is this a current diagnosis for this admission?: Yes Plan: 07/11/2019-vegetation on the aortic valve confirmed with SANJU. Further treatment to be decided by cardiac surgeon. (6) Abdominal pain Qualifiers: Abdominal location: generalized Qualified Code(s): R10.84 - Generalized abdominal pain Is this a current diagnosis for this admission?: Yes (7) Hepatitis C Qualifiers: Viral hepatitis chronicity: chronic Hepatic coma status: without hepatic coma Qualified Code(s): B18.2 - Chronic viral hepatitis C Is this a current diagnosis for this admission?: Yes (8) Steatohepatitis Is this a current diagnosis for this admission?: Yes (9) Anemia Qualifiers: Anemia type: iron deficiency Iron deficiency anemia type: unspecified iron deficiency Qualified Code(s): D50.9 - Iron deficiency anemia, unspecified Is this a current diagnosis for this admission?: Yes (10) Depression Qualifiers: Depression Type: other depression Qualified Code(s): F32.89 - Other specified depressive episodes Is this a current diagnosis for this admission?: Yes (11) Daya vaginitis Is this a current diagnosis for this admission?: Yes Plan: 07/11/2019 resolved (12) Plantar fasciitis of left foot Is this a current diagnosis for this admission?: Yes Plan: 07/11/2019 resolved (13) Tachycardia Is this a current diagnosis for this admission?: Yes Plan: 07/11/2019-still with episodes of tachycardia - Plan Summary Summary: (1) Endocarditis Qualifiers: Endocarditis type: infective Is this a current diagnosis for this admission?: Yes Plan: 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 Presented to ED with dull retrosternal chest pain which has been present since valve replacement. Was a started started on IV vancomycin by Dr. Bowen hospitalist at [facility]. 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 [facility] on regional diversion at the admission time and was admitted here at [facility]. 05/21/2019. TTE LVEF 60%. No thrombus or vegetations noted. Severe tricuspid regurgitation. RSVP 48 to 53 mmHg.05/27/2019 Started on empiric broad-spectrum IV antibiotics. PICC line placed on 05/22/2018 on the left basilic vein. PICC line removed 06/14/2019 as per ID recommendation. Please refer to note. Tip was cultured which came back negative. Multiple positive blood cultures for pseudomonas aeruginosa. Last negative blood culture 05/31/2019 Last negative blood culture 05/31/2019. Day 23 of 56 days. Expected completion date 07/30/2019. Day 25 IV cefepime. Day 13 Ciprofloxacin 750 mg p.o. twice daily. Day 31 IV antibiotics. Received 10 days of IV levofloxacin. Switch to ciprofloxacin IV as per ID recommendation. I have been informed that [facility] will be able to do SANJU starting early June. Patient has stable and receiving IV antibiotics SANJU can wait until early June if not will call [facility] again for transfer for SANJU. 06/09/2019. Infectious disease consulted. Recommendations noted. Please refer to note. Unfortunately patient has a drug abuse and could not be sent home on IV antibiotics. 06/24/2019-patient has endocarditis not a candidate to go home with an IV antibiotic therapy. Patient may need a SANJU this week. pt is presently on IV cefepime. 06/25/2019-patient has history of endocarditis secondary to percent 10 to use of IV drug abuse. Admitted with fever and chills. Blood cultures came back positive for pseudomonas aeruginosa latest blood cultures are negative. Patient is presently on cefepime and p.o. ciprofloxacin. Plan is to arrange for SANJU after 01 July at this hospital. Last night patient has no fever but Reiger's and chills. To closely monitor her medical condition plan is to move her to [facility] today. 06/26/2019-unfortunately the SANJU service is not available yet. The patient will continue her antibiotic therapy. She will need 6 weeks from the first set of blood cultures that were no growth. 06/27/2019-no changes to the treatment plan. 06/28/2019-she is complaining of plantar fasciitis. Achilles tendons are nontender and appear intact. Will monitor while on quinolone therapy. 06/29/2019-no change in therapy at this time. Expected end date July 30. 07/02/2019-patient is admitted with endocarditis now the plan is to arrange for SANJU after 09 July here at [place]. In the meantime plan is to continue IV antibiotic therapy. Sedated 32 of IV antibiotic therapy patient is presently on IV cefepime and Cipro floxacillin 750 mg p.o. twice a day. 07/03/2019-patient is scheduled for SANJU after July 10. Presently on IV cefepime and p.o. Cipro floxacillin as per ID recommendations. She is going to complete the antibiotic therapy on July 30. 07/04/2019-patient admitted with endocarditis on IV cefepime and p.o. Cipro floxacillin. Plan to arrange for SANJU next week. 07/05/2019-patient is on IV cefepime, p.o. Cipro floxacillin and antibiotic course will be finished on July 30. Possible SANJU next week. 07/06/2019-patient is presently on IV cefepime, p.o. Cipro floxacillin for endocarditis. Plan to have a SANJU next week. Plan is to continue IV antibiotic therapy until #60. 07/07/2019-patient is presently on IV cefepime and p.o. Cipro floxacillin for endocarditis patient may go for a SANJU this week 07/08/2019-patient is presently on IV cefepime and Cipro floxacillin for endocarditis request for SANJU placed for tomorrow. 07/09/2019-patient has a SANJU done this morning Dr. Miguel Ángel watson called me to discuss the findings he thinks patient might have aortic valve vegetation. Plan is to continue the IV antibiotics as per ID recommendations. 07/10/2019-patient is going to receive IV cefepime and p.o. Cipro floxacillin for endocarditis. SANJU was done found to have a vegetation in the right aortic wall. 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 Presented to ED with dull retrosternal chest pain which has been present since valve replacement. Was a started started on IV vancomycin by Dr. Hoggart hospitalist at [facility]. 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 [facility] on regional diversion at the admission time and was admitted here at [facility]. 05/21/2019. TTE LVEF 60%. No thrombus or vegetations noted. Severe tricuspid regurgitation. RSVP 48 to 53 mmHg.05/27/2019 Started on empiric broad-spectrum IV antibiotics. PICC line placed on 05/22/2018 on the left basilic vein. PICC line removed on 06/14/2019 as per ID recommendation. PICC line tip sent to culture. Multiple positive blood cultures for pseudomonas aeruginosa. Last negative blood culture 05/31/2019. Plan as per #1 06/24/2019-blood cultures came back positive for Pseudomonas aeruginosa on 05 29. Latest blood cultures are negative. As per ID recommendations PICC line was removed on . As listed above latest cultures are negative. Plan is to continue the present management. 06/25/2019-blood cultures from 05/29/2019 came back positive for Pseudomonas aerugi nosa as per ID recommendations patient is on p.o. Cipro floxacillin and IV cephapirin. Waiting for a SANJU procedure after 01 July. Cultures are negative. Latest 06/26/2019-multiple repeated blood cultures are negative. Continue current treatment regimen. 06/29/2019-as above 07/02/2019-latest blood cultures from 06/25/2019 are negative. 07/04/2019-latest blood cultures are negative. Patient has endocarditis. History of IV drug abuse. SANJU is scheduled for next week. Plan is to continue IV cefepime and p.o. Cipro floxacillin. 07/05/2019-latest blood cultures are negative from 06/25 2019. She had a history of IV drug abuse admitted for endocarditis. Possible SANJU next week. Plan is to continue cefepime and p.o. ciprofloxacin. 07/06/2019-latest blood cultures are negative. Prior blood cultures are positive for Pseudomonas aeruginosa and patient getting treatment for endocarditis. For possible SANJU next week. Plan is to continue antibiotic therapy until July 30. 07/07/2019-initial cultures came back positive for Pseudomonas aeruginosa and latest blood cultures are negative. Patient is receiving IV cephapirin and p.o. Cipro plan is to arrange for a SANJU on Sunday.\ 07/08/2019-initial blood cultures are positive for pseudomonas aeruginosa and follow-up blood cultures are negative. Patient is scheduled for a SANJU tomorrow and to continue IV cefepime and p.o. Cipro floxacillin. 07/09/2019-blood cultures are positive for pseudomonas aeruginosa initially on the repeat blood cultures came back negative. Presently on IV cefepime and p.o. Cipro floxacillin. SANJU shows aortic valve vegetation. Plan is to continue the antibiotic therapy. 10/10/2018-latest blood cultures are negative. 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 Plan is to continue the antibiotic therapy until July 30. (3) IV drug abuse Is this a current diagnosis for this admission?: Yes Plan: Persistent IV drug abuse. Unfortunately patient seems to be abusing drugs while in the hospital. At times patient seems to be too sleepy. UDS on 06/08/2019 for back positive for opiates. Which was confirmed as morphine. Only on Subutex and tramadol in the hospital. Patient was advised on abstinence from recreational drug abuse. Currently on on Subutex since 05/27/2019 and tramadol. Was encouraged to rehab admission one day before discharge. 06/24/2019-patient has history of IV drug abuse. Counseling was provided today. 06/26/2019-continue Suboxone 06/29/2019-suspected self injection last night. Patient reports tachycardia was from using vape. Had a long discussion about compliance with hospital rules and treatment regimen. 07/02/2019-no complaints of any pains today. She is receiving Subutex and tramadol in the hospital. (4) Abdominal pain Qualifiers: Abdominal location: generalized Qualified Code(s): R10.84 - Generalized abdominal pain Is this a current diagnosis for this admission?: Yes Plan: Resolved. CT abdomen pelvis 06/06/2019 found no acute findings except for severe constipation. History of cholecystectomy. History of hepatitis C. History of hepatic steatosis. Lipase WNL. Continue beta-blockers and supportive measures. Continue bowel regimen. Encourage ambulation and high-fiber diet. 06/24/2019-patient came with complaints of abdominal pain. Which was resolved. Lipase levels are within normal limits. 06/26/2019-the patient does have history of hepatitis C. Since the rapid response 2 nights ago the patient exhibits increased LFTs. She does have a history of hepatitis C. I will recheck the liver enzymes and if they continue to increase I will obtain imaging of the abdomen. 06/27/2019-we discussed the elevated liver enzymes. She cannot remember when her last evaluation for hepatitis C was. I will check a hep C RNA level. We will continue to monitor the chemistries. 06/28/2019-liver enzymes are slowly improving. Unsure of the spike. Could be related to long-term antibiotics. We will continue to monitor. 07/02/19-patient has history of cholecystectomy, history of hepatitis C, history of hepatic steatosis lipase levels are within normal limits recently no complaints of abdominal pains. (5) Anemia Qualifiers: Anemia type: iron deficiency Iron deficiency anemia type: unspecified iron deficiency Qualified Code(s): D50.9 - Iron deficiency anemia, unspecified Is this a current diagnosis for this admission?: Yes Plan: Microcytic. Likely combination of anemia of chronic disease and iron deficiency anemia. Denies any easy bleeding, nosebleeds, hematemesis, hemoptysis, hematochezia, vaginal bleeding or melena. 05/30/2019. Iron panel. Serum iron 18.8, TIBC 270, saturation 7%, ferritin 213, folate 5.53, B12 folate 306, 06/08/2019. Status post 2 PRBC transfusion. Daily H&H, monitor for bleeding, supportive transfusions, ferrous sulfate. 06/24/2019-patient received 2 units of PRBC. During the hospital stay. Latest hemoglobin is 11.4. Stable. 06/25/2019-patient received 2 units of PRBC during the hospital stay latest hemoglobin is 11.4 plan is to closely trend the hemoglobin on daily basis. 06/26/2019-continue to monitor hemoglobin. 07/02/2019-patient's low latest hemoglobin is 10.3 stable. #6 ) plantar fasciitis-the patient developed tenderness under the arch of the left foot. I had physical therapy see the patient. They believe it is plantar fasciitis. She is on quinolone therapy long-term. This can have an adverse effect on tendons. We will continue to monitor. Physical therapy provided exercise plan for the patient. 06/29/2019-patient reports increased pain. I have added IV Toradol as an anti-inflammatory and physical therapy is working with her. 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 This puts the stop date at approximately July 14. She should still have a SANJU once that service is finally organized and offered. Anemia-continue iron supplement Drug abuse-continue Subutex Neuropathy-continue Neurontin Plantar fasciitis-she is working with physical therapy. Toradol is available. Consider wrapping her foot for support. Pain management-avoid narcotics completely 7.hyperkalemia Potassium today is 5.5 patient refused to take Kayexalate. to Recheck the potassium levels later on this evening. 07/04/2019-patient's potassium today 6.6 to Kayexalate and dextrose along with insulin IV to bring the potassium down repeat the potassium levels this afternoon. 07/05/2019-patient serum potassium is 5.5 today came down from 6.6 she was given Kayexalate along with the D50 1 amp and 8 units of regular insulin IV plan is to repeat the dose of 1 amp D50 and 6 units of regular insulin IV. Patient refusing Kayexalate. 07/06/2019-serum potassium is persistently high to start her on low potassium diet from today. 07/07/2019-latest serum potassium levels is 5.2 to recheck the labs today. Patient is on low potassium diet. 07/08/2019-patient serum potassium today is 4.9 hyperkalemia is resolved. - Time Time Spent with patient: Less than 15 minutes Medications reviewed and adjusted accordingly: Yes
[2019-07-11] MEDS: ATORVASTATIN CALCIUM 40 MG TABLET PO SCH (21:08)
[2019-07-11] MEDS: QUETIAPINE FUMARATE 25 MG TABLET PO SCH (21:08)
[2019-07-11 22:24] LABS: URINE AMPHETAMINES SCREEN NEGATIVE; URINE BARBITURATES SCREEN NEGATIVE; URINE BENZODIAZEPINES SCREEN NEGATIVE; URINE COCAINE SCREEN NEGATIVE; URINE MARIJUANA (THC) SCREEN NEGATIVE; URINE METHADONE SCREEN NEGATIVE; URINE PHENCYCLIDINE SCREEN NEGATIVE
[2019-07-12] MEDS: CEFEPIME 2 GM/D5W RTU 2 GM/50 ML RTUPB IV SCH ×3 (02:45→18:24)
[2019-07-12] MEDS: TIZANIDINE HCL 4 MG TABLET PO PRN ×3 (04:33→18:24)
[2019-07-12] MEDS: GABAPENTIN 300 MG CAPSULE PO SCH ×3 (05:28→21:54)
[2019-07-12] MEDS: PANTOPRAZOLE SODIUM 40 MG TABLET.DR PO SCH (05:28)
[2019-07-12] MEDS: CIPROFLOXACIN HCL 750 MG TABLET PO SCH ×2 (10:15→21:54)
[2019-07-12] MEDS: LACTOBACILLUS ACIDOPHILUS 250 MG TAB PO SCH ×2 (10:15→18:23)
[2019-07-12] MEDS: FERROUS SULFATE 325 MG TABLET PO SCH (10:15)
[2019-07-12] MEDS: NORMAL SALINE 10 ML SDV (SCHEDULED) IV SCH ×2 (10:15→21:56)
[2019-07-12] MEDS: BUPRENORPHINE HCL 2 MG SUBLINGUAL TABLET SL SCH ×2 (10:15→21:53)
[2019-07-12] MEDS: MAGNESIUM OXIDE 400 MG TABLET PO SCH ×2 (10:17→18:24)
[2019-07-12] MEDS: METOPROLOL TARTRATE 25 MG TABLET PO SCH ×2 (10:17→21:54)
[2019-07-12] MEDS: HEPARIN SOD (PORCINE) 5,000 UNIT/ML 1 ML VIAL SUBCUT SCH ×2 (10:18→21:55)
--- NOTE | 2019-07-12 14:14 | PDOC PROGRESS REPORT ---
Subjective Progress Note for:: 07/12/19 Subjective:: No adverse events overnight. No new complaints. Vital signs been stable. Eating and drinking without difficulty. No fevers. She is worried about the possibility of having to have more surgery on her heart, but says she is willing to do so if this was needed. Reason For Visit: IV DRUG ABUSE,SEPSIS,ENDOCARDITIS Physical Exam Vital Signs: Temp Pulse Resp BP Pulse Ox 98.0 F 89 18 108/67 100 07/12/19 11:02 07/12/19 11:02 07/12/19 11:02 07/12/19 11:02 07/12/19 11:02 Intake & Output 07/11/19 07/12/19 07/13/19 06:59 06:59 06:59 Intake Total 1712 1656 530 Balance 1712 1656 530 Weight 93.2 kg 94.5 kg General appearance: PRESENT: no acute distress, cooperative, disheveled Respiratory exam: PRESENT: clear to auscultation sandrita, symmetrical, unlabored. ABSENT: accessory muscle use, chest wall tenderness, decreased breath sounds, prolonged expiratory phase, rales, rhonchi, tachypnea, wheezes Cardiovascular exam: PRESENT: RRR, +S1, +S2, audible systolic murmur Pulses: PRESENT: normal carotid pulses Vascular exam: PRESENT: normal capillary refill GI/Abdominal exam: PRESENT: normal bowel sounds, soft. ABSENT: distended, guarding, rebound, tenderness Extremities exam: ABSENT: clubbing, pedal edema Musculoskeletal exam: PRESENT: normal inspection. ABSENT: deformity Neurological exam: PRESENT: alert, awake, oriented to person, oriented to place, oriented to situation Psychiatric exam: PRESENT: appropriate affect, normal mood Skin exam: PRESENT: dry, warm Results Laboratory Results: 07/07/19 10:45 07/07/19 10:45 05/21/19 05/22/19 05/22/19 23:07 02:06 11:00 Creatine Kinase CK-MB (CK-2) Troponin I 0.098 0.098 0.070 NT-Pro-B Natriuret Pep 05/22/19 05/22/19 05/22/19 14:00 14:35 20:04 Creatine Kinase CK-MB (CK-2) Troponin I Cancelled 0.060 0.037 NT-Pro-B Natriuret Pep 05/28/19 05/28/19 06/02/19 00:15 00:15 00:20 Creatine Kinase < 20 L < 20 L CK-MB (CK-2) 0.49 Troponin I 0.077 NT-Pro-B Natriuret Pep 06/02/19 06/02/19 06/02/19 00:20 06:15 06:15 Creatine Kinase < 20 L CK-MB (CK-2) 1.53 1.39 Troponin I 0.194 0.171 NT-Pro-B Natriuret Pep 06/02/19 06/02/19 06/28/19 13:30 13:30 03:40 Creatine Kinase < 20 L 26 L CK-MB (CK-2) 1.68 Troponin I 0.175 NT-Pro-B Natriuret Pep 4000 H Impressions: Chest X-Ray 05/21/19 23:04 IMPRESSION: 1. No acute pulmonary findings. 2. Previous sternotomy Abdomen Ultrasound 05/28/19 00:00 IMPRESSION: Mild splenomegaly. No acute findings otherwise. Abdomen/Pelvis CT 06/06/19 00:00 IMPRESSION: 1. Gastric distention and debris. Ileus. Constipation. 2. Normal appendix. No acute abdominopelvic abnormality. Guidance Fluoroscopy 06/23/19 00:00 IMPRESSION: SUCCESSFUL PLACEMENT OF A 5 FR DUAL LUMEN 38 CM PICC IN THE LEFT BASILIC VEIN. Interventional Vascular Procedure 06/23/19 00:00 IMPRESSION: SUCCESSFUL PLACEMENT OF A 5 FR DUAL LUMEN 38 CM PICC IN THE LEFT BASILIC VEIN. PICC Line Insertion 06/23/19 00:00 IMPRESSION: SUCCESSFUL PLACEMENT OF A 5 FR DUAL LUMEN 38 CM PICC IN THE LEFT BASILIC VEIN. Foot X-Ray 06/29/19 00:00 IMPRESSION: NEGATIVE STUDY OF THE LEFT FOOT. NO EXPLANATION FOR PAIN. Assessment and Plan - Diagnosis (1) Gram-negative bacteremia Is this a current diagnosis for this admission?: Yes Plan: She continues on antibiotics per infectious disease recommendations. Her stop date tentatively is July 30. (2) UTI (urinary tract infection) Qualifiers: Urinary tract infection type: acute cystitis Hematuria presence: without hematuria Qualified Code(s): N30.00 - Acute cystitis without hematuria Is this a current diagnosis for this admission?: Yes Plan: Resolved (3) Hypokalemia Is this a current diagnosis for this admission?: Yes Plan: Resolved (4) IV drug abuse Is this a current diagnosis for this admission?: Yes Plan: She is having to stay here to finish her antibiotics. This is the second time this year she is had endocarditis. (5) Endocarditis Qualifiers: Endocarditis type: infective Infective endocarditis organism: bacterial Chronicity: acute Qualified Code(s): I33.0 - Acute and subacute infective endocarditis Is this a current diagnosis for this admission?: Yes Plan: SANJU on 07/09/19 was positive for an 8 mm aortic valve vegetation. Treatment is as noted above. We will follow-up with infectious disease and cardiology regarding whether or not the issue to be any revision to her treatment plan since this SANJU. 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 As per previous physicians note her ldr r[facility] at [facility] is aware of this admission. Presented to ED with dull retrosternal chest pain which has been present since valve replacement. Was a started started on IV vancomycin by Dr. Bowen hospitalist at [facility]. 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 [facility] on regional diversion at the admission time and was admitted here at [facility]. 05/21/2019. TTE LVEF 60%. No thrombus or vegetations noted. Severe tricuspid regurgitation. RSVP 48 to 53 mmHg.05/27/2019 Started on empiric broad-spectrum IV antibiotics. PICC line placed on 05/22/2018 on the left basilic vein. PICC line removed 06/14/2019 as per ID recommendation. Please refer to note. Tip was cultured which came back negative. Multiple positive blood cultures for pseudomonas aeruginosa. Last negative blood culture 05/31/2019 Last negative blood culture 05/31/2019. Day 23 of 56 days. Expected completion date 07/30/2019. Day 25 IV cefepime. Day 13 Ciprofloxacin 750 mg p.o. twice daily. Day 31 IV antibiotics. Received 10 days of IV levofloxacin. Switch to ciprofloxacin IV as per ID recommendation. I have been informed that [facility] will be able to do SANJU starting early June. Patient has stable and receiving IV antibiotics SANJU can wait until early June if not will call [facility] again for transfer for SANJU. 06/09/2019. Infectious disease consulted. Recommendations noted. Please refer to note. Unfortunately patient has a drug abuse and could not be sent home on IV antibiotics. 06/24/2019-patient has endocarditis not a candidate to go home with an IV antibiotic therapy. Patient may need a SANJU this week. pt is presently on IV cefepime. 06/25/2019-patient has history of endocarditis secondary to percent 10 to use of IV drug abuse. Admitted with fever and chills. Blood cultures came back positive for pseudomonas aeruginosa latest blood cultures are negative. Patient is presently on cefepime and p.o. ciprofloxacin. Plan is to arrange for SANJU after 01 July at this hospital. Last night patient has no fever but Reiger's and chills. To closely monitor her medical condition plan is to move her to [facility] today. 06/26/2019-unfortunately the SANJU service is not available yet. The patient will continue her antibiotic therapy. She will need 6 weeks from the first set of blood cultures that were no growth. 06/27/2019-no changes to the treatment plan. 06/28/2019-she is complaining of plantar fasciitis. Achilles tendons are nontender and appear intact. Will monitor while on quinolone therapy. 06/29/2019-no change in therapy at this time. Expected end date July 30. 07/02/2019-patient is admitted with endocarditis now the plan is to arrange for SANJU after 09 July here at [facility]. In the meantime plan is to continue IV antibiotic therapy. Sedated 32 of IV antibiotic therapy patient is presently on IV cefepime and Cipro floxacillin 750 mg p.o. twice a day. 07/03/2019-patient is scheduled for SANJU after July 10. Presently on IV cefep anil and p.o. Cipro floxacillin as per ID recommendations. She is going to complete the antibiotic therapy on July 30. 07/04/2019-patient admitted with endocarditis on IV cefepime and p.o. Cipro f loxacillin. Plan to arrange for SANJU next week. 07/05/2019-patient is on IV cefepime, p.o. Cipro floxacillin and antibiotic course will be finished on July 30. Possible SANJU next week. 07/06/2019-patient is presently on IV cefepime, p.o. Cipro floxacillin for endocarditis. Plan to have a SANJU next week. Plan is to continue IV antibiotic therapy until #60. 07/07/2019-patient is presently on IV cefepime and p.o. Cipro floxacillin for endocarditis patient may go for a SANJU this week 07/08/2019-patient is presently on IV cefepime and Cipro floxacillin for endocarditis request for SANJU placed for tomorrow. 07/09/2019-patient has a SANJU done this morning Dr. Miguel Ángel watson called me to discuss the findings he thinks patient might have aortic valve vegetation. Plan is to continue the IV antibiotics as per ID recommendations. 07/10/2019-patient is going to receive IV cefepime and p.o. Cipro floxacillin for endocarditis. SANJU was done found to have a vegetation in the right aortic wall. 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 Presented to ED with dull retrosternal chest pain which has been present since valve replacement. Was a started started on IV vancomycin by Dr. Bowen hospitalist at [facility]. 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 [facility] on regional diversion at the admission time and was admitted here at [facility]. 05/21/2019. TTE LVEF 60%. No thrombus or vegetations noted. Severe tricuspid regurgitation. RSVP 48 to 53 mmHg.05/27/2019 Started on empiric broad-spectrum IV antibiotics. PICC line placed on 05/22/2018 on the left basilic vein. PICC line removed on 06/14/2019 as per ID recommendation. PICC line tip sent to culture. Multiple positive blood cultures for pseudomonas aeruginosa. Last negative blood culture 05/31/2019. Plan as per #1 06/24/2019-blood cultures came back positive for Pseudomonas aeruginosa on 05 29. Latest blood cultures are negative. As per ID recommendations PICC line was removed on 91. As listed above latest cultures are negative. Plan is to continue the present management. 06/25/2019-blood cultures from 05/29/2019 came back positive for Pseudomonas aeruginosa as per ID recommendations patient is on p.o. Cipro floxacillin and IV cephapirin. Waiting for a SANJU procedure after 01 July. Cultures are negative. Latest 06/26/2019-multiple repeated blood cultures are negative. Continue current mauro tment regimen. 06/29/2019-as above 07/02/2019-latest blood cultures from 06/25/2019 are negative. 07/04/2019-latest blood cultures are negative. Patient has endocarditis. History of IV drug abuse. SANJU is scheduled for next week. Plan is to continue IV cefepime and p.o. Cipro floxacillin. 07/05/2019-latest blood cultures are negative from 06/25 2019. She had a history of IV drug abuse admitted for endocarditis. Possible SANJU next week. Plan is to continue cefepime and p.o. ciprofloxacin. 07/06/2019-latest blood cultures are negative. Prior blood cultures are positive for Pseudomonas aeruginosa and patient getting treatment for endocarditis. For possible SANJU next week. Plan is to continue antibiotic therapy until July 30. 07/07/2019-initial cultures came back positive for Pseudomonas aeruginosa and latest blood cultures are negative. Patient is receiving IV cephapirin and p.o. Cipro plan is to arrange for a SANJU on Sunday.\ 07/08/2019-initial blood cultures are positive for pseudomonas aeruginosa and follow-up blood cultures are negative. Patient is scheduled for a SANJU tomorrow and to continue IV cefepime and p.o. Cipro floxacillin. 07/09/2019-blood cultures are positive for pseudomonas aeruginosa initially on the repeat blood cultures came back negative. Presently on IV cefepime and p.o. Cipro floxacillin. SANJU shows aortic valve vegetation. Plan is to continue the antibiotic therapy. 10/10/2018-latest blood cultures are negative. 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 Plan is to continue the antibiotic therapy until July 30. (3) IV drug abuse Is this a current diagnosis for this admission?: Yes Plan: Persistent IV drug abuse. Unfortunately patient seems to be abusing drugs while in the hospital. At times patient seems to be too sleepy. UDS on 06/08/2019 for back positive for opiates. Which was confirmed as morphine. Only on Subutex and tramadol in the hospital. Patient was advised on abstinence from recreational drug abuse. Currently on on Subutex since 05/27/2019 and tramadol. Was encouraged to rehab admission one day before discharge. 06/24/2019-patient has history of IV drug abuse. Counseling was provided today. 06/26/2019-continue Suboxone 06/29/2019-suspected self injection last night. Patient reports tachycardia was from using vape. Had a long discussion about compliance with hospital rules and treatment regimen. 07/02/2019-no complaints of any pains today. She is receiving Subutex and tramadol in the hospital. (4) Abdominal pain Qualifiers: Abdominal location: generalized Qualified Code(s): R10.84 - Generalized abdominal pain Is this a current diagnosis for this admission?: Yes Plan: Resolved. CT abdomen pelvis 06/06/2019 found no acute findings except for severe constipation. History of cholecystectomy. History of hepatitis C. History of hepatic steatosis. Lipase WNL. Continue beta-blockers and supportive measures. Continue bowel regimen. Encourage ambulation and high-fiber diet. 06/24/2019-patient came with complaints of abdominal pain. Which was resolved. Lipase levels are within normal limits. 06/26/2019-the patient does have history of hepatitis C. Since the rapid resp onse 2 nights ago the patient exhibits increased LFTs. She does have a history of hepatitis C. I will recheck the liver enzymes and if they continue to increase I will obtain imaging of the abdomen. 06/27/2019-we discussed the elevated liver enzymes. She cannot remember when her last evaluation for hepatitis C was. I will check a hep C RNA level. We will continue to monitor the chemistries. 06/28/2019-liver enzymes are slowly improving. Unsure of the spike. Could be related to long-term antibiotics. We will continue to monitor. 07/02/19-patient has history of cholecystectomy, history of hepatitis C, history of hepatic steatosis lipase levels are within normal limits recently no compl aints of abdominal pains. (5) Anemia Qualifiers: Anemia type: iron deficiency Iron deficiency anemia type: unspecified iron deficiency Qualified Code(s): D50.9 - Iron deficiency anemia, unspecified Is this a current diagnosis for this admission?: Yes Plan: Microcytic. Likely combination of anemia of chronic disease and iron deficiency anemia. Denies any easy bleeding, nosebleeds, hematemesis, hemoptysis, hematochezia, vaginal bleeding or melena. 05/30/2019. Iron panel. Serum iron 18.8, TIBC 270, saturation 7%, ferritin 213, folate 5.53, B12 folate 306, 06/08/2019. Status post 2 PRBC transfusion. Daily H&H, monitor for bleeding, supportive transfusions, ferrous sulfate. 06/24/2019-patient received 2 units of PRBC. During the hospital stay. Latest hemoglobin is 11.4. Stable. 06/25/2019-patient received 2 units of PRBC during the hospital stay latest hemoglobin is 11.4 plan is to closely trend the hemoglobin on daily basis. 06/26/2019-continue to monitor hemoglobin. 07/02/2019-patient's low latest hemoglobin is 10.3 stable. #6 ) plantar fasciitis-the patient developed tenderness under the arch of the left foot. I had physical therapy see the patient. They believe it is plantar fasciitis. She is on quinolone therapy long-term. This can have an adverse effect on tendons. We will continue to monitor. Physical therapy provided exercise plan for the patient. 06/29/2019-patient reports increased pain. I have added IV Toradol as an anti- inflammatory and physical therapy is working with her. 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 This puts the stop date at approximately July 14. She should still have a SANJU once that service is finally organized and offered. Anemia-continue iron supplement Drug abuse-continue Subutex Neuropathy-continue Neurontin Plantar fasciitis-she is working with physical therapy. Toradol is available. Consider wrapping her foot for support. Pain management-avoid narcotics completely 7.hyperkalemia Potassium today is 5.5 patient refused to take Kayexalate. to Recheck the potassium levels later on this evening. 07/04/2019-patient's potassium today 6.6 to Kayexalate and dextrose along with insulin IV to bring the potassium down repeat the potassium levels this afternoon. 07/05/2019-patient serum potassium is 5.5 today came down from 6.6 she was given Kayexalate along with the D50 1 amp and 8 units of regular insulin IV plan is to repeat the dose of 1 amp D50 and 6 units of regular insulin IV. Patient refusing Kayexalate. 07/06/2019-serum potassium is persistently high to start her on low potassium diet from today. 07/07/2019-latest serum potassium levels is 5.2 to recheck the labs today. Patient is on low potassium diet. 07/08/2019-patient serum potassium today is 4.9 hyperkalemia is resolved. - Time Time Spent with patient: 15-24 minutes
[2019-07-12] MEDS: ATORVASTATIN CALCIUM 40 MG TABLET PO SCH (21:53)
[2019-07-12] MEDS: QUETIAPINE FUMARATE 25 MG TABLET PO SCH (21:54)
[2019-07-13] MEDS: CEFEPIME 2 GM/D5W RTU 2 GM/50 ML RTUPB IV SCH ×3 (01:11→18:26)
[2019-07-13] MEDS: GABAPENTIN 300 MG CAPSULE PO SCH ×3 (05:28→21:33)
[2019-07-13] MEDS: PANTOPRAZOLE SODIUM 40 MG TABLET.DR PO SCH (05:28)
[2019-07-13] MEDS: BUPRENORPHINE HCL 2 MG SUBLINGUAL TABLET SL SCH ×2 (09:30→21:33)
[2019-07-13] MEDS: TIZANIDINE HCL 4 MG TABLET PO PRN ×4 (09:31→23:21)
[2019-07-13] MEDS: FERROUS SULFATE 325 MG TABLET PO SCH (09:32)
[2019-07-13] MEDS: LACTOBACILLUS ACIDOPHILUS 250 MG TAB PO SCH ×2 (09:33→17:13)
[2019-07-13] MEDS: METOPROLOL TARTRATE 25 MG TABLET PO SCH ×2 (09:33→21:42)
[2019-07-13] MEDS: MAGNESIUM OXIDE 400 MG TABLET PO SCH ×2 (09:33→17:13)
[2019-07-13] MEDS: HEPARIN SOD (PORCINE) 5,000 UNIT/ML 1 ML VIAL SUBCUT SCH ×2 (09:34→21:34)
[2019-07-13] MEDS: NORMAL SALINE 10 ML SDV (SCHEDULED) IV SCH ×2 (09:35→21:40)
[2019-07-13] MEDS: CIPROFLOXACIN HCL 750 MG TABLET PO SCH ×2 (11:35→21:34)
--- NOTE | 2019-07-13 16:47 | PDOC PROGRESS REPORT ---
Subjective Progress Note for:: 07/13/19 Subjective:: No adverse events overnight. No new complaints. Vital signs been stable. Eating and drinking without difficulty. No fevers. Reason For Visit: IV DRUG ABUSE,SEPSIS,ENDOCARDITIS Physical Exam Vital Signs: Temp Pulse Resp BP Pulse Ox 98.1 F 88 16 117/65 100 07/13/19 08:38 07/13/19 08:38 07/13/19 08:38 07/13/19 08:38 07/13/19 08:38 Intake & Output 07/12/19 07/13/19 07/14/19 06:59 06:59 06:59 Intake Total 1656 1854 575 Balance 1656 1854 575 Weight 94.5 kg 94.3 kg General appearance: PRESENT: no acute distress, cooperative, disheveled Respiratory exam: PRESENT: clear to auscultation sandrita, symmetrical, unlabored. ABSENT: accessory muscle use, chest wall tenderness, decreased breath sounds, prolonged expiratory phase, rales, rhonchi, tachypnea, wheezes Cardiovascular exam: PRESENT: RRR, +S1, +S2, audible systolic murmur Pulses: PRESENT: normal carotid pulses Vascular exam: PRESENT: normal capillary refill GI/Abdominal exam: PRESENT: normal bowel sounds, soft. ABSENT: distended, guarding, rebound, tenderness Extremities exam: ABSENT: clubbing, pedal edema Musculoskeletal exam: PRESENT: normal inspection. ABSENT: deformity Neurological exam: PRESENT: alert, awake, oriented to person, oriented to place, oriented to situation Psychiatric exam: PRESENT: appropriate affect, normal mood Skin exam: PRESENT: dry, warm Results Laboratory Results: 07/07/19 10:45 07/07/19 10:45 05/21/19 05/22/19 05/22/19 23:07 02:06 11:00 Creatine Kinase CK-MB (CK-2) Troponin I 0.098 0.098 0.070 NT-Pro-B Natriuret Pep 05/22/19 05/22/19 05/22/19 14:00 14:35 20:04 Creatine Kinase CK-MB (CK-2) Troponin I Cancelled 0.060 0.037 NT-Pro-B Natriuret Pep 05/28/19 05/28/19 06/02/19 00:15 00:15 00:20 Creatine Kinase < 20 L < 20 L CK-MB (CK-2) 0.49 Troponin I 0.077 NT-Pro-B Natriuret Pep 06/02/19 06/02/19 06/02/19 00:20 06:15 06:15 Creatine Kinase < 20 L CK-MB (CK-2) 1.53 1.39 Troponin I 0.194 0.171 NT-Pro-B Natriuret Pep 06/02/19 06/02/19 06/28/19 13:30 13:30 03:40 Creatine Kinase < 20 L 26 L CK-MB (CK-2) 1.68 Troponin I 0.175 NT-Pro-B Natriuret Pep 4000 H Impressions: Chest X-Ray 05/21/19 23:04 IMPRESSION: 1. No acute pulmonary findings. 2. Previous sternotomy Abdomen Ultrasound 05/28/19 00:00 IMPRESSION: Mild splenomegaly. No acute findings otherwise. Abdomen/Pelvis CT 06/06/19 00:00 IMPRESSION: 1. Gastric distention and debris. Ileus. Constipation. 2. Normal appendix. No acute abdominopelvic abnormality. Guidance Fluoroscopy 06/23/19 00:00 IMPRESSION: SUCCESSFUL PLACEMENT OF A 5 FR DUAL LUMEN 38 CM PICC IN THE LEFT BASILIC VEIN. Interventional Vascular Procedure 06/23/19 00:00 IMPRESSION: SUCCESSFUL PLACEMENT OF A 5 FR DUAL LUMEN 38 CM PICC IN THE LEFT BASILIC VEIN. PICC Line Insertion 06/23/19 00:00 IMPRESSION: SUCCESSFUL PLACEMENT OF A 5 FR DUAL LUMEN 38 CM PICC IN THE LEFT BASILIC VEIN. Foot X-Ray 06/29/19 00:00 IMPRESSION: NEGATIVE STUDY OF THE LEFT FOOT. NO EXPLANATION FOR PAIN. Assessment and Plan - Diagnosis (1) Gram-negative bacteremia Is this a current diagnosis for this admission?: Yes Plan: She continues on antibiotics per infectious disease recommendations. Her stop date tentatively is July 30. (2) UTI (urinary tract infection) Qualifiers: Urinary tract infection type: acute cystitis Hematuria presence: without hematuria Qualified Code(s): N30.00 - Acute cystitis without hematuria Is this a current diagnosis for this admission?: Yes Plan: Resolved (3) Hypokalemia Is this a current diagnosis for this admission?: Yes Plan: Resolved (4) IV drug abuse Is this a current diagnosis for this admission?: Yes Plan: She is having to stay here to finish her antibiotics. This is the second time this year she is had endocarditis. (5) Endocarditis Qualifiers: Endocarditis type: infective Infective endocarditis organism: bacterial Chronicity: acute Qualified Code(s): I33.0 - Acute and subacute infective endocarditis Is this a current diagnosis for this admission?: Yes Plan: SANJU on 07/09/19 was positive for an 8 mm aortic valve vegetation. Treatment is as noted above. We will follow-up with infectious disease and cardiology reg arding whether or not the issue to be any revision to her treatment plan since this SANJU. 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 As per previous physicians note her site promotion agent at at [place] is aware of this admission. Presented to ED with dull retrosternal chest pain which has been present since valve replacement. Was a started started on IV vancomycin by Dr. Bwoen hospitalist at [facility]. 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 [facility] on regional diversion at the admission time and was admitted here at [facility]. 05/21/2019. TTE LVEF 60%. No thrombus or vegetations noted. Severe tricuspid regurgitation. RSVP 48 to 53 mmHg.05/27/2019 Started on empiric broad-spectrum IV antibiotics. PICC line placed on 05/22/2018 on the left basilic vein. PICC line removed 06/14/2019 as per ID recommendation. Please refer to note. Tip was cultured which came back negative. Multiple positive blood cultures for pseudomonas aeruginosa. Last negative blood culture 05/31/2019 Last negative blood culture 05/31/2019. Day 23 of 56 days. Expected completion date 07/30/2019. Day 25 IV cefepime. Day 13 Ciprofloxacin 750 mg p.o. twice daily. Day 31 IV antibiotics. Received 10 days of IV levofloxacin. Switch to ciprofloxacin IV as per ID recommendation. I have been informed that [facility] will be able to do SANJU starting early June. Patient has stable and receiving IV antibiotics SANJU can wait until early June if not will call [facility] again for transfer for SANJU. 06/09/2019. Infectious disease consulted. Recommendations noted. Please refer to note. Unfortunately patient has a drug abuse and could not be sent home on IV antibiotics. 06/24/2019-patient has endocarditis not a candidate to go home with an IV antibiotic therapy. Patient may need a SANJU this week. pt is presently on IV cefepime. 06/25/2019-patient has history of endocarditis secondary to percent 10 to use of IV drug abuse. Admitted with fever and chills. Blood cultures came back positive for pseudomonas aeruginosa latest blood cultures are negative. Patient is presently on cefepime and p.o. ciprofloxacin. Plan is to arrange for SANJU after 01 July at this hospital. Last night patient has no fever but Reiger's and chills. To closely monitor her medical condition plan is to move her to [facility] today. 06/26/2019-unfortunately the SANJU service is not available yet. The patient will continue her antibiotic therapy. She will need 6 weeks from the first set of blood cultures that were no growth. 06/27/2019-no changes to the treatment plan. 06/28/2019-she is complaining of plantar fasciitis. Achilles tendons are nontender and appear intact. Will monitor while on quinolone therapy. 06/29/2019-no change in therapy at this time. Expected end date July 30. 07/02/2019-patient is admitted with endocarditis now the plan is to arrange for SANJU after 09 July here at [place]. In the meantime plan is to continue IV antibiotic therapy. Sedated 32 of IV antibiotic therapy patient is presently on IV cefepime and Cipro floxacillin 750 mg p.o. twice a day. 07/03/2019-patient is scheduled for SANJU after July 10. Presently on IV cefepime and p.o. Cipro floxacillin as per ID recommendations. She is going to complete the antibiotic therapy on July 30. 07/04/2019-patient admitted with endocarditis on IV cefepime and p.o. Cipro floxacillin. Plan to arrange for SANJU next week. 07/05/2019-patient is on IV cefepime, p.o. Cipro floxacillin and antibiotic course will be finished on July 30. Possible SANJU next week. 07/06/2019-patient is presently on IV cefepime, p.o. Cipro floxacillin for endocarditis. Plan to have a SANJU next week. Plan is to continue IV antibiotic therapy until #60. 07/07/2019-patient is presently on IV cefepime and p.o. Cipro floxacillin for endocarditis patient may go for a SANJU this week 07/08/2019-patient is presently on IV cefepime and Cipro floxacillin for endocarditis request for SANJU placed for tomorrow. 07/09/2019-patient has a SANJU done this morning Dr. Miguel Ángel watson called me to discuss the findings he thinks patient might have aortic valve vegetation. Plan is to continue the IV antibiotics as per ID recommendations. 07/10/2019-patient is going to receive IV cefepime and p.o. Cipro floxacillin for endocarditis. SANJU was done found to have a vegetation in the right aortic wall. 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 Presented to ED with dull retrosternal chest pain which has been present since valve replacement. Was a started started on IV vancomycin by Dr. Bowen hospitalist at [facility]. 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 [facility] on regional diversion at the admission time and was admitted here at [facility]. 05/21/2019. TTE LVEF 60%. No thrombus or vegetations noted. Severe tricuspid regurgitation. RSVP 48 to 53 mmHg.05/27/2019 Started on empiric broad-spectrum IV antibiotics. PICC line placed on 05/22/2018 on the left basilic vein. PICC line removed on 06/14/2019 as per ID recommendation. PICC line tip sent to culture. Multiple positive blood cultures for pseudomonas aeruginosa. Last negative blood culture 05/31/2019. Plan as per #1 06/24/2019-blood cultures came back positive for Pseudomonas aeruginosa on 05 29. Latest blood cultures are negative. As per ID recommendations PICC line was removed on . As listed above latest cultures are negative. Plan is to continue the present management. 06/25/2019-blood cultures from 05/29/2019 came back positive for Pseudomonas aeruginosa as per ID recommendations patient is on p.o. Cipro floxacillin and IV cephapirin. Waiting for a SANJU procedure after 01 July. Cultures are negative. Latest 06/26/2019-multiple repeated blood cultures are negative. Continue current treatment regimen. 06/29/2019-as above 07/02/2019-latest blood cultures from 06/25/2019 are negative. 07/04/2019-latest blood cultures are negative. Patient has endocarditis. History of IV drug abuse. SANJU is scheduled for next week. Plan is to continue IV cefepime and p.o. Cipro floxacillin. 07/05/2019-latest blood cultures are negative from 06/25 2019. She had a history of IV drug abuse admitted for endocarditis. Possible SANJU next week. Plan is to continue cefepime and p.o. ciprofloxacin. 07/06/2019-latest blood cultures are negative. Prior blood cultures are positive for Pseudomonas aeruginosa and patient getting treatment for endocarditis. For possible SANJU next week. Plan is to continue antibiotic therapy until July 30. 07/07/2019-initial cultures came back positive for Pseudomonas aeruginosa and latest blood cultures are negative. Patient is receiving IV cephapirin and p.o. Cipro plan is to arrange for a SANJU on Sunday.\ 07/08/2019-initial blood cultures are positive for pseudomonas aeruginosa and follow-up blood cultures are negative. Patient is scheduled for a SANJU tomorrow and to continue IV cefepime and p.o. Cipro floxacillin. 07/09/2019-blood cultures are positive for pseudomonas aeruginosa initially on the repeat blood cultures came back negative. Presently on IV cefepime and p.o. Cipro floxacillin. SANJU shows aortic valve vegetation. Plan is to continue the antibiotic therapy. 10/10/2018-latest blood cultures are negative. 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 Plan is to continue the antibiotic therapy until July 30. (3) IV drug abuse Is this a current diagnosis for this admission?: Yes Plan: Persistent IV drug abuse. Unfortunately patient seems to be abusing drugs while in the hospital. At times patient seems to be too sleepy. UDS on 06/08/2019 for back positive for opiates. Which was confirmed as morphine. Only on Subutex and tramadol in the hospital. Patient was advised on abstinence from recreational drug abuse. Currently on on Subutex since 05/27/2019 and tramadol. Was encouraged to rehab admission one day before discharge. 06/24/2019-patient has history of IV drug abuse. Counseling was provided today. 06/26/2019-continue Suboxone 06/29/2019-suspected self injection last night. Patient reports tachycardia was from using vape. Had a long discussion about compliance with hospital rules and treatment regimen. 07/02/2019-no complaints of any pains today. She is receiving Subutex and tramadol in the hospital. (4) Abdominal pain Qualifiers: Abdominal location: generalized Qualified Code(s): R10.84 - Generalized abdominal pain Is this a current diagnosis for this admission?: Yes Plan: Resolved. CT abdomen pelvis 06/06/2019 found no acute findings except for severe constipation. History of cholecystectomy. History of hepatitis C. History of hepatic steatosis. Lipase WNL. Continue beta-blockers and supportive measures. Continue bowel regimen. Encourage ambulation and high-fiber diet. 06/24/2019-patient came with complaints of abdominal pain. Which was resolved. Lipase levels are within normal limits. 06/26/2019-the patient does have history of hepatitis C. Since the rapid response 2 nights ago the patient exhibits increased LFTs. She does have a history of hepatitis C. I will recheck the liver enzymes and if they continue to increase I will obtain imaging of the abdomen. 06/27/2019-we discussed the elevated liver enzymes. She cannot remember when her last evaluation for hepatitis C was. I will check a hep C RNA level. We will continue to monitor the chemistries. 06/28/2019-liver enzymes are slowly improving. Unsure of the spike. Could be related to long-term antibiotics. We will continue to monitor. 07/02/19-patient has history of cholecystectomy, history of hepatitis C, history of hepatic steatosis lipase levels are within normal limits recently no complaints of abdominal pains. (5) Anemia Qualifiers: Anemia type: iron deficiency Iron deficiency anemia type: unspecified iron deficiency Qualified Code(s): D50.9 - Iron deficiency anemia, unspecified Is this a current diagnosis for this admission?: Yes Plan: Microcytic. Likely combination of anemia of chronic disease and iron deficiency anemia. Denies any easy bleeding, nosebleeds, hematemesis, hemoptysis, hematochezia, vaginal bleeding or melena. 05/30/2019. Iron panel. Serum iron 18.8, TIBC 270, saturation 7%, ferritin 213, folate 5.53, B12 folate 306, 06/08/2019. Status post 2 PRBC transfusion. Daily H&H, monitor for bleeding, supportive transfusions, ferrous sulfate. 06/24/2019-patient received 2 units of PRBC. During the hospital stay. Latest hemoglobin is 11.4. Stable. 06/25/2019-patient received 2 units of PRBC during the hospital stay latest hemoglobin is 11.4 plan is to closely trend the hemoglobin on daily basis. 06/26/2019-continue to monitor hemoglobin. 07/02/2019-patient's low latest hemoglobin is 10.3 stable. #6 ) plantar fasciitis-the patient developed tenderness under the arch of the left foot. I had physical therapy see the patient. They believe it is plantar fasciitis. She is on quinolone therapy long-term. This can have an adverse effect on tendons. We will continue to monitor. Physical therapy provided exercise plan for the patient. 06/29/2019-patient reports increased pain. I have added IV Toradol as an anti- inflammatory and physical therapy is working with her. 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 This puts the stop date at approximately July 14. She should still have a SANJU once that service is finally organized and offered. Anemia-continue iron supplement Drug abuse-continue Subutex Neuropathy-continue Neurontin Plantar fasciitis-she is working with physical therapy. Toradol is available. Consider wrapping her foot for support. Pain management-avoid narcotics completely 7.hyperkalemia Potassium today is 5.5 patient refused to take Kayexalate. to Recheck the potassium levels later on this evening. 07/04/2019-patient's potassium today 6.6 to Kayexalate and dextrose along with insulin IV to bring the potassium down repeat the potassium levels this afternoon. 07/05/2019-patient serum potassium is 5.5 today came down from 6.6 she was given Kayexalate along with the D50 1 amp and 8 units of regular insulin IV plan is to repeat the dose of 1 amp D50 and 6 units of regular insulin IV. Patient refusing Kayexalate. 07/06/2019-serum potassium is persistently high to start her on low potassium diet from today. 07/07/2019-latest serum potassium levels is 5.2 to recheck the labs today. Patient is on low potassium diet. 07/08/2019-patient serum potassium today is 4.9 hyperkalemia is resolved. - Time Time Spent with patient: 15-24 minutes
[2019-07-13] MEDS ORDERED: CEFEPIME 2 GM/D5W RTU 2 GM/50 ML RTUPB IV ONE (18:18)
[2019-07-13] MEDS: ATORVASTATIN CALCIUM 40 MG TABLET PO SCH (21:31)
[2019-07-13] MEDS: QUETIAPINE FUMARATE 25 MG TABLET PO SCH (21:34)
[2019-07-14] MEDS: CEFEPIME 2 GM/D5W RTU 2 GM/50 ML RTUPB IV SCH ×3 (01:18→17:53)
[2019-07-14] MEDS: GABAPENTIN 300 MG CAPSULE PO SCH ×3 (05:33→22:08)
[2019-07-14] MEDS: TIZANIDINE HCL 4 MG TABLET PO PRN ×3 (05:33→22:08)
[2019-07-14] MEDS: PANTOPRAZOLE SODIUM 40 MG TABLET.DR PO SCH (05:33)
[2019-07-14] MEDS: BUPRENORPHINE HCL 2 MG SUBLINGUAL TABLET SL SCH ×2 (10:00→22:10)
[2019-07-14] MEDS: FERROUS SULFATE 325 MG TABLET PO SCH (10:01)
[2019-07-14] MEDS: MAGNESIUM OXIDE 400 MG TABLET PO SCH ×2 (10:01→17:52)
[2019-07-14] MEDS: HEPARIN SOD (PORCINE) 5,000 UNIT/ML 1 ML VIAL SUBCUT SCH ×2 (10:02→22:11)
[2019-07-14] MEDS: METOPROLOL TARTRATE 25 MG TABLET PO SCH ×2 (10:02→22:11)
[2019-07-14] MEDS: NORMAL SALINE 10 ML SDV (SCHEDULED) IV SCH ×2 (10:04→22:11)
[2019-07-14] MEDS: CIPROFLOXACIN HCL 750 MG TABLET PO SCH ×2 (10:09→22:08)
--- NOTE | 2019-07-14 14:24 | PDOC PROGRESS REPORT ---
Subjective Progress Note for:: 07/14/19 Subjective:: No adverse events overnight. No new complaints. Vital signs been stable. Eating and drinking without difficulty. No fevers. Reason For Visit: IV DRUG ABUSE,SEPSIS,ENDOCARDITIS Physical Exam Vital Signs: Temp Pulse Resp BP Pulse Ox 97.8 F 80 18 100/53 L 99 07/14/19 08:56 07/14/19 08:56 07/14/19 08:56 07/14/19 08:56 07/14/19 08:56 Intake & Output 07/13/19 07/14/19 07/15/19 06:59 06:59 06:59 Intake Total 1854 2372 50 Balance 1854 2372 50 Weight 94.3 kg 94.3 kg General appearance: PRESENT: no acute distress, cooperative, disheveled Respiratory exam: PRESENT: clear to auscultation sandrita, symmetrical, unlabored. ABSENT: accessory muscle use, chest wall tenderness, decreased breath sounds, prolonged expiratory phase, rales, rhonchi, tachypnea, wheezes Cardiovascular exam: PRESENT: RRR, +S1, +S2, audible systolic murmur Pulses: PRESENT: normal carotid pulses Vascular exam: PRESENT: normal capillary refill GI/Abdominal exam: PRESENT: normal bowel sounds, soft. ABSENT: distended, guarding, rebound, tenderness Extremities exam: ABSENT: clubbing, pedal edema Musculoskeletal exam: PRESENT: normal inspection. ABSENT: deformity Neurological exam: PRESENT: alert, awake, oriented to person, oriented to place, oriented to situation Psychiatric exam: PRESENT: appropriate affect, normal mood Skin exam: PRESENT: dry, warm Results Laboratory Results: 07/07/19 10:45 07/07/19 10:45 05/21/19 05/22/19 05/22/19 23:07 02:06 11:00 Creatine Kinase CK-MB (CK-2) Troponin I 0.098 0.098 0.070 NT-Pro-B Natriuret Pep 05/22/19 05/22/19 05/22/19 14:00 14:35 20:04 Creatine Kinase CK-MB (CK-2) Troponin I Cancelled 0.060 0.037 NT-Pro-B Natriuret Pep 05/28/19 05/28/19 06/02/19 00:15 00:15 00:20 Creatine Kinase < 20 L < 20 L CK-MB (CK-2) 0.49 Troponin I 0.077 NT-Pro-B Natriuret Pep 06/02/19 06/02/19 06/02/19 00:20 06:15 06:15 Creatine Kinase < 20 L CK-MB (CK-2) 1.53 1.39 Troponin I 0.194 0.171 NT-Pro-B Natriuret Pep 06/02/19 06/02/19 06/28/19 13:30 13:30 03:40 Creatine Kinase < 20 L 26 L CK-MB (CK-2) 1.68 Troponin I 0.175 NT-Pro-B Natriuret Pep 4000 H Impressions: Chest X-Ray 05/21/19 23:04 IMPRESSION: 1. No acute pulmonary findings. 2. Previous sternotomy Abdomen Ultrasound 05/28/19 00:00 IMPRESSION: Mild splenomegaly. No acute findings otherwise. Abdomen/Pelvis CT 06/06/19 00:00 IMPRESSION: 1. Gastric distention and debris. Ileus. Constipation. 2. Normal appendix. No acute abdominopelvic abnormality. Guidance Fluoroscopy 06/23/19 00:00 IMPRESSION: SUCCESSFUL PLACEMENT OF A 5 FR DUAL LUMEN 38 CM PICC IN THE LEFT BASILIC VEIN. Interventional Vascular Procedure 06/23/19 00:00 IMPRESSION: SUCCESSFUL PLACEMENT OF A 5 FR DUAL LUMEN 38 CM PICC IN THE LEFT BASILIC VEIN. PICC Line Insertion 06/23/19 00:00 IMPRESSION: SUCCESSFUL PLACEMENT OF A 5 FR DUAL LUMEN 38 CM PICC IN THE LEFT BASILIC VEIN. Foot X-Ray 06/29/19 00:00 IMPRESSION: NEGATIVE STUDY OF THE LEFT FOOT. NO EXPLANATION FOR PAIN. Assessment and Plan - Diagnosis (1) Gram-negative bacteremia Is this a current diagnosis for this admission?: Yes Plan: She continues on antibiotics per infectious disease recommendations. Her stop date tentatively is July 30. (2) UTI (urinary tract infection) Qualifiers: Urinary tract infection type: acute cystitis Hematuria presence: without hematuria Qualified Code(s): N30.00 - Acute cystitis without hematuria Is this a current diagnosis for this admission?: Yes Plan: Resolved (3) Hypokalemia Is this a current diagnosis for this admission?: Yes Plan: Resolved (4) IV drug abuse Is this a current diagnosis for this admission?: Yes Plan: She is having to stay here to finish her antibiotics. This is the second time this year she is had endocarditis. (5) Endocarditis Qualifiers: Endocarditis type: infective Infective endocarditis organism: bacterial C hronicity: acute Qualified Code(s): I33.0 - Acute and subacute infective endocarditis Is this a current diagnosis for this admission?: Yes Plan: SANJU on 07/09/19 was positive for an 8 mm aortic valve vegetation. Treatment is as noted above. We will follow-up with infectious disease and cardiology kelli bunch whether or not the issue to be any revision to her treatment plan since this SANJU. 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 Presented to ED with dull retrosternal chest pain which has been present since valve replacement. Was a started started on IV vancomycin by Dr. Bowen hospitalist at [facility]. 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 [facility] on regional diversion at the admission time and was admitted here at [facility]. 05/21/2019. TTE LVEF 60%. No thrombus or vegetations noted. Severe tricuspid regurgitation. RSVP 48 to 53 mmHg.05/27/2019 Started on empiric broad-spectrum IV antibiotics. PICC line placed on 05/22/2018 on the left basilic vein. PICC line removed 06/14/2019 as per ID recommendation. Please refer to note. Tip was cultured which came back negative. Multiple positive blood cultures for pseudomonas aeruginosa. Last negative blood culture 05/31/2019 Last negative blood culture 05/31/2019. Day 23 of 56 days. Expected completion date 07/30/2019. Day 25 IV cefepime. Day 13 Ciprofloxacin 750 mg p.o. twice daily. Day 31 IV antibiotics. Received 10 days of IV levofloxacin. Switch to ciprofloxacin IV as per ID recommendation. I have been informed that [facility] will be able to do SANJU starting early June. Patient has stable and receiving IV antibiotics SANJU can wait until early June if not will call [facility] again for transfer for SANJU. 06/09/2019. Infectious disease consulted. Recommendations noted. Please refer to note. Unfortunately patient has a drug abuse and could not be sent home on IV antibiotics. 06/24/2019-patient has endocarditis not a candidate to go home with an IV antibiotic therapy. Patient may need a SANJU this week. pt is presently on IV cefepime. 06/25/2019-patient has history of endocarditis secondary to percent 10 to use of IV drug abuse. Admitted with fever and chills. Blood cultures came back po sitive for pseudomonas aeruginosa latest blood cultures are negative. Patient is presently on cefepime and p.o. ciprofloxacin. Plan is to arrange for SANJU after 01 July at this hospital. Last night patient has no fever but Reiger's and chills. To closely monitor her medical condition plan is to move her to [facility] today. 06/26/2019-unfortunately the SANJU service is not available yet. The patient will continue her antibiotic therapy. She will need 6 weeks from the first set of blood cultures that were no growth. 06/27/2019-no changes to the treatment plan. 06/28/2019-she is complaining of plantar fasciitis. Achilles tendons are nontender and appear intact. Will monitor while on quinolone therapy. 06/29/2019-no change in therapy at this time. Expected end date July 30. 07/02/2019-patient is admitted with endocarditis now the plan is to arrange for SANJU after 09 July here at [facility]. In the meantime plan is to continue IV antibiotic therapy. Sedated 32 of IV antibiotic therapy patient is presently on IV cefepime and Cipro floxacillin 750 mg p.o. twice a day. 07/03/2019-patient is scheduled for SANJU after July 10. Presently on IV cefepime and p.o. Cipro floxacillin as per ID recommendations. She is going to complete the antibiotic therapy on July 30. 07/04/2019-patient admitted with endocarditis on IV cefepime and p.o. Cipro floxacillin. Plan to arrange for SANJU next week. 07/05/2019-patient is on IV cefepime, p.o. Cipro floxacillin and antibiotic course will be finished on July 30. Possible SANJU next week. 07/06/2019-patient is presently on IV cefepime, p.o. Cipro floxacillin for endocarditis. Plan to have a SANJU next week. Plan is to continue IV antibiotic therapy until #60. 07/07/2019-patient is presently on IV cefepime and p.o. Cipro floxacillin for endocarditis patient may go for a SANJU this week 07/08/2019-patient is presently on IV cefepime and Cipro floxacillin for endocarditis request for SANJU placed for tomorrow. 07/09/2019-patient has a SANJU done this morning Dr. Miguel Ángel watson called me to discuss the findings he thinks patient might have aortic valve vegetation. Plan is to continue the IV antibiotics as per ID recommendations. 07/10/2019-patient is going to receive IV cefepime and p.o. Cipro floxacillin for endocarditis. SANJU was done found to have a vegetation in the right aortic wall. 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 Presented to ED with dull retrosternal chest pain which has been present since valve replacement. Was a started started on IV vancomycin by Dr. Bowen hospitalist at [facility]. 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 [facility] on regional diversion at the admission time and was admitted here at [facility]. 05/21/2019. TTE LVEF 60%. No thrombus or vegetations noted. Severe tricuspid regurgitation. RSVP 48 to 53 mmHg.05/27/2019 Started on empiric broad-spectrum IV antibiotics. PICC line placed on 05/22/2018 on the left basilic vein. PICC line removed on 06/14/2019 as per ID recommendation. PICC line tip sent to culture. Multiple positive blood cultures for pseudomonas aeruginosa. Last negative blood culture 05/31/2019. Plan as per #1 06/24/2019-blood cultures came back positive for Pseudomonas aeruginosa on 05 29. Latest blood cultures are negative. As per ID recommendations PICC line was removed on . As listed above latest cultures are negative. Plan is to continue the present management. 06/25/2019-blood cultures from 05/29/2019 came back positive for Pseudomonas aeruginosa as per ID recommendations patient is on p.o. Cipro floxacillin and IV cephapirin. Waiting for a SANJU procedure after 01 July. Cultures are negative. Latest 06/26/2019-multiple repeated blood cultures are negative. Continue current treatment regimen. 06/29/2019-as above 07/02/2019-latest blood cultures from 06/25/2019 are negative. 07/04/2019-latest blood cultures are negative. Patient has endocarditis. History of IV drug abuse. SANJU is scheduled for next week. Plan is to continue IV cefepime and p.o. Cipro floxacillin. 07/05/2019-latest blood cultures are negative from 06/25 2019. She had a history of IV drug abuse admitted for endocarditis. Possible SANJU next week. Plan is to continue cefepime and p.o. ciprofloxacin. 07/06/2019-latest blood cultures are negative. Prior blood cultures are positive for Pseudomonas aeruginosa and patient getting treatment for endocarditis. For possible SANJU next week. Plan is to continue antibiotic therapy until July 30. 07/07/2019-initial cultures came back positive for Pseudomonas aeruginosa and latest blood cultures are negative. Patient is receiving IV cephapirin and p.o. Cipro plan is to arrange for a SANJU on Sunday.\ 07/08/2019-initial blood cultures are positive for pseudomonas aeruginosa and follow-up blood cultures are negative. Patient is scheduled for a SANJU tomorrow and to continue IV cefepime and p.o. Cipro floxacillin. 07/09/2019-blood cultures are positive for pseudomonas aeruginosa initially on the repeat blood cultures came back negative. Presently on IV cefepime and p.o. Cipro floxacillin. SANJU shows aortic valve vegetation. Plan is to continue the antibiotic therapy. 10/10/2018-latest blood cultures are negative. 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 Plan is to continue the antibiotic therapy until July 30. (3) IV drug abuse Is this a current diagnosis for this admission?: Yes Plan: Persistent IV drug abuse. Unfortunately patient seems to be abusing drugs while in the hospital. At times patient seems to be too sleepy. UDS on 06/08/2019 for back positive for opiates. Which was confirmed as morphine. Only on Subutex and tramadol in the hospital. Patient was advised on abstinence from recreational drug abuse. Currently on on Subutex since 05/27/2019 and tramadol. Was encouraged to rehab admission one day before discharge. 06/24/2019-patient has history of IV drug abuse. Counseling was provided today. 06/26/2019-continue Suboxone 06/29/2019-suspected self injection last night. Patient reports tachycardia was from using vape. Had a long discussion about compliance with hospital rules and treatment regimen. 07/02/2019-no complaints of any pains today. She is receiving Subutex and tramadol in the hospital. (4) Abdominal pain Qualifiers: Abdominal location: generalized Qualified Code(s): R10.84 - Generalized abdominal pain Is this a current diagnosis for this admission?: Yes Plan: Resolved. CT abdomen pelvis 06/06/2019 found no acute findings except for severe constipation. History of cholecystectomy. History of hepatitis C. History of hepatic steatosis. Lipase WNL. Continue beta-blockers and supportive measures. Continue bowel regimen. Encourage ambulation and high-fiber diet. 06/24/2019-patient came with complaints of abdominal pain. Which was resolved. Lipase levels are within normal limits. 06/26/2019-the patient does have history of hepatitis C. Since the rapid response 2 nights ago the patient exhibits increased LFTs. She does have a history of hepatitis C. I will recheck the liver enzymes and if they continue to increase I will obtain imaging of the abdomen. 06/27/2019-we discussed the elevated liver enzymes. She cannot remember when her last evaluation for hepatitis C was. I will check a hep C RNA level. We will continue to monitor the chemistries. 06/28/2019-liver enzymes are slowly improving. Unsure of the spike. Could be related to long-term antibiotics. We will continue to monitor. 07/02/19-patient has history of cholecystectomy, history of hepatitis C, history of hepatic steatosis lipase levels are within normal limits recently no complaints of abdominal pains. (5) Anemia Qualifiers: Anemia type: iron deficiency Iron deficiency anemia type: unspecified iron deficiency Qualified Code(s): D50.9 - Iron deficiency anemia, unspecified Is this a current diagnosis for this admission?: Yes Plan: Microcytic. Likely combination of anemia of chronic disease and iron deficiency anemia. Denies any easy bleeding, nosebleeds, hematemesis, hemoptysis, hematochezia, vaginal bleeding or melena. 05/30/2019. Iron panel. Serum iron 18.8, TIBC 270, saturation 7%, ferritin 213, folate 5.53, B12 folate 306, 06/08/2019. Status post 2 PRBC transfusion. Daily H&H, monitor for bleeding, supportive transfusions, ferrous sulfate. 06/24/2019-patient received 2 units of PRBC. During the hospital stay. Latest hemoglobin is 11.4. Stable. 06/25/2019-patient received 2 units of PRBC during the hospital stay latest hemoglobin is 11.4 plan is to closely trend the hemoglobin on daily basis. 06/26/2019-continue to monitor hemoglobin. 07/02/2019-patient's low latest hemoglobin is 10.3 stable. #6 ) plantar fasciitis-the patient developed tenderness under the arch of the left foot. I had physical therapy see the patient. They believe it is plantar fasciitis. She is on quinolone therapy long-term. This can have an adverse effect on tendons. We will continue to monitor. Physical therapy provided exercise plan for the patient. 06/29/2019-patient reports increased pain. I have added IV Toradol as an anti- inflammatory and physical therapy is working with her. 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 This puts the stop date at approximately July 14. She should still have a SANJU once that service is finally organized and offered. Anemia-continue iron supplement Drug abuse-continue Subutex Neuropathy-continue Neurontin Plantar fasciitis-she is working with physical therapy. Toradol is available. Consider wrapping her foot for support. Pain management-avoid narcotics completely 7.hyperkalemia Potassium today is 5.5 patient refused to take Kayexalate. to Recheck the potassium levels later on this evening. 07/04/2019-patient's potassium today 6.6 to Kayexalate and dextrose along with insulin IV to bring the potassium down repeat the potassium levels this afternoon. 07/05/2019-patient serum potassium is 5.5 today came down from 6.6 she was given Kayexalate along with the D50 1 amp and 8 units of regular insulin IV plan is to repeat the dose of 1 amp D50 and 6 units of regular insulin IV. Patient refusing Kayexalate. 07/06/2019-serum potassium is persistently high to start her on low potassium diet from today. 07/07/2019-latest serum potassium levels is 5.2 to recheck the labs today. Patient is on low potassium diet. 07/08/2019-patient serum potassium today is 4.9 hyperkalemia is resolved. - Time Time Spent with patient: 15-24 minutes
[2019-07-14] MEDS: ATORVASTATIN CALCIUM 40 MG TABLET PO SCH (22:08)
[2019-07-14] MEDS: QUETIAPINE FUMARATE 25 MG TABLET PO SCH (22:08)
[2019-07-15] MEDS: CEFEPIME 2 GM/D5W RTU 2 GM/50 ML RTUPB IV SCH ×3 (02:02→18:01)
[2019-07-15] MEDS: GABAPENTIN 300 MG CAPSULE PO SCH ×3 (06:00→22:00)
[2019-07-15] MEDS: PANTOPRAZOLE SODIUM 40 MG TABLET.DR PO SCH (06:00)
[2019-07-15] MEDS: METOPROLOL TARTRATE 25 MG TABLET PO SCH ×2 (09:20→22:01)
[2019-07-15] MEDS: FERROUS SULFATE 325 MG TABLET PO SCH (09:20)
[2019-07-15] MEDS: CIPROFLOXACIN HCL 750 MG TABLET PO SCH ×2 (09:21→22:00)
[2019-07-15] MEDS: BUPRENORPHINE HCL 2 MG SUBLINGUAL TABLET SL SCH ×2 (09:21→22:00)
[2019-07-15] MEDS: MAGNESIUM OXIDE 400 MG TABLET PO SCH ×2 (09:21→18:00)
[2019-07-15] MEDS: HEPARIN SOD (PORCINE) 5,000 UNIT/ML 1 ML VIAL SUBCUT SCH ×2 (09:24→22:01)
[2019-07-15] MEDS: NORMAL SALINE 10 ML SDV (SCHEDULED) IV SCH ×2 (09:24→22:00)
[2019-07-15] MEDS: ACETAMINOPHEN 325 MG TABLET PO PRN ×2 (09:35→16:57)
[2019-07-15] MEDS: TIZANIDINE HCL 4 MG TABLET PO PRN ×2 (09:35→16:57)
--- NOTE | 2019-07-15 15:20 | PDOC PROGRESS REPORT ---
Subjective Progress Note for:: 07/15/19 Subjective:: No adverse events overnight. No new complaints. Vital signs been stable. Eating and drinking without difficulty. No fevers. Reason For Visit: IV DRUG ABUSE,SEPSIS,ENDOCARDITIS Physical Exam Vital Signs: Temp Pulse Resp BP Pulse Ox 97.8 F 102 H 17 114/97 H 100 07/15/19 08:16 07/15/19 08:16 07/14/19 20:26 07/15/19 08:16 07/15/19 08:16 Intake & Output 07/14/19 07/15/19 07/16/19 06:59 06:59 06:59 Intake Total 2372 870 50 Balance 2372 870 50 Weight 94.3 kg 93.7 kg General appearance: PRESENT: no acute distress, cooperative, disheveled Respiratory exam: PRESENT: clear to auscultation sandrita, symmetrical, unlabored. ABSENT: accessory muscle use, chest wall tenderness, decreased breath sounds, prolonged expiratory phase, rales, rhonchi, tachypnea, wheezes Cardiovascular exam: PRESENT: RRR, +S1, +S2, audible systolic murmur Pulses: PRESENT: normal carotid pulses Vascular exam: PRESENT: normal capillary refill GI/Abdominal exam: PRESENT: normal bowel sounds, soft. ABSENT: distended, guarding, rebound, tenderness Extremities exam: ABSENT: clubbing, pedal edema Musculoskeletal exam: PRESENT: normal inspection. ABSENT: deformity Neurological exam: PRESENT: alert, awake, oriented to person, oriented to place, oriented to situation Psychiatric exam: PRESENT: appropriate affect, normal mood Skin exam: PRESENT: dry, warm Results Laboratory Results: 07/07/19 10:45 07/07/19 10:45 05/21/19 05/22/19 05/22/19 23:07 02:06 11:00 Creatine Kinase CK-MB (CK-2) Troponin I 0.098 0.098 0.070 NT-Pro-B Natriuret Pep 05/22/19 05/22/19 05/22/19 14:00 14:35 20:04 Creatine Kinase CK-MB (CK-2) Troponin I Cancelled 0.060 0.037 NT-Pro-B Natriuret Pep 05/28/19 05/28/19 06/02/19 00:15 00:15 00:20 Creatine Kinase < 20 L < 20 L CK-MB (CK-2) 0.49 Troponin I 0.077 NT-Pro-B Natriuret Pep 06/02/19 06/02/19 06/02/19 00:20 06:15 06:15 Creatine Kinase < 20 L CK-MB (CK-2) 1.53 1.39 Troponin I 0.194 0.171 NT-Pro-B Natriuret Pep 06/02/19 06/02/19 06/28/19 13:30 13:30 03:40 Creatine Kinase < 20 L 26 L CK-MB (CK-2) 1.68 Troponin I 0.175 NT-Pro-B Natriuret Pep 4000 H Impressions: Chest X-Ray 05/21/19 23:04 IMPRESSION: 1. No acute pulmonary findings. 2. Previous sternotomy Abdomen Ultrasound 05/28/19 00:00 IMPRESSION: Mild splenomegaly. No acute findings otherwise. Abdomen/Pelvis CT 06/06/19 00:00 IMPRESSION: 1. Gastric distention and debris. Ileus. Constipation. 2. Normal appendix. No acute abdominopelvic abnormality. Guidance Fluoroscopy 06/23/19 00:00 IMPRESSION: SUCCESSFUL PLACEMENT OF A 5 FR DUAL LUMEN 38 CM PICC IN THE LEFT BASILIC VEIN. Interventional Vascular Procedure 06/23/19 00:00 IMPRESSION: SUCCESSFUL PLACEMENT OF A 5 FR DUAL LUMEN 38 CM PICC IN THE LEFT BASILIC VEIN. PICC Line Insertion 06/23/19 00:00 IMPRESSION: SUCCESSFUL PLACEMENT OF A 5 FR DUAL LUMEN 38 CM PICC IN THE LEFT BASILIC VEIN. Foot X-Ray 06/29/19 00:00 IMPRESSION: NEGATIVE STUDY OF THE LEFT FOOT. NO EXPLANATION FOR PAIN. Assessment and Plan - Diagnosis (1) Gram-negative bacteremia Is this a current diagnosis for this admission?: Yes Plan: She continues on antibiotics per infectious disease recommendations. Her stop date tentatively is July 30. (2) UTI (urinary tract infection) Qualifiers: Urinary tract infection type: acute cystitis Hematuria presence: without hematuria Qualified Code(s): N30.00 - Acute cystitis without hematuria Is this a current diagnosis for this admission?: Yes Plan: Resolved (3) Hypokalemia Is this a current diagnosis for this admission?: Yes Plan: Resolved (4) IV drug abuse Is this a current diagnosis for this admission?: Yes Plan: She is having to stay here to finish her antibiotics. This is the second time this year she is had endocarditis. (5) Endocarditis Qualifiers: Endocarditis type: infective Infective endocarditis organism: bacterial Chronicity: acute Qualified Code(s): I33.0 - Acute and subacute infective endocarditis Is this a current diagnosis for this admission?: Yes Plan: SANJU on 07/09/19 was positive for an 8 mm aortic valve vegetation. Treatment is as noted above. We will follow-up with infectious disease and cardiology gato christensen whether or not the issue to be any revision to her treatment plan since this SANJU. 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 As per previous physicians note her general purchasing agent at [facility] is aware of this admission. Presented to ED with dull retrosternal chest pain which has been present since valve replacement. Was a started started on IV vancomycin by Dr. Bowen hospitalist at [facility]. 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 [facility] on regional diversion at the admission time and was admitted here at [facility]. 05/21/2019. TTE LVEF 60%. No thrombus or vegetations noted. Severe tricuspid regurgitation. RSVP 48 to 53 mmHg.05/27/2019 Started on empiric broad-spectrum IV antibiotics. PICC line placed on 05/22/2018 on the left basilic vein. PICC line removed 06/14/2019 as per ID recommendation. Please refer to note. Tip was cultured which came back negative. Multiple positive blood cultures for pseudomonas aeruginosa. Last negative blood culture 05/31/2019 Last negative blood culture 05/31/2019. Day 23 of 56 days. Expected completion date 07/30/2019. Day 25 IV cefepime. Day 13 Ciprofloxacin 750 mg p.o. twice daily. Day 31 IV antibiotics. Received 10 days of IV levofloxacin. Switch to ciprofloxacin IV as per ID recommendation. I have been informed that [facility] will be able to do SANJU starting early June. Patient has stable and receiving IV antibiotics SANJU can wait until early June if not will call [facility] again for transfer for SANJU. 06/09/2019. Infectious disease consulted. Recommendations noted. Please refer to note. Unfortunately patient has a drug abuse and could not be sent home on IV antibiotics. 06/24/2019-patient has endocarditis not a candidate to go home with an IV antibiotic therapy. Patient may need a SANJU this week. pt is presently on IV cefepime. 06/25/2019-patient has history of endocarditis secondary to percent 10 to use of IV drug abuse. Admitted with fever and chills. Blood cultures came back p ositive for pseudomonas aeruginosa latest blood cultures are negative. Patient is presently on cefepime and p.o. ciprofloxacin. Plan is to arrange for SANJU after 01 July at this hospital. Last night patient has no fever but Reiger's and chills. To closely monitor her medical condition plan is to move her to [facility] today. 06/26/2019-unfortunately the SANJU service is not available yet. The patient will continue her antibiotic therapy. She will need 6 weeks from the first set of blood cultures that were no growth. 06/27/2019-no changes to the treatment plan. 06/28/2019-she is complaining of plantar fasciitis. Achilles tendons are nontender and appear intact. Will monitor while on quinolone therapy. 06/29/2019-no change in therapy at this time. Expected end date July 30. 07/02/2019-patient is admitted with endocarditis now the plan is to arrange for SANJU after 09 July here at [place]. In the meantime plan is to continue IV antibiotic therapy. Sedated 32 of IV antibiotic therapy patient is presently on IV cefepime and Cipro floxacillin 750 mg p.o. twice a day. 07/03/2019-patient is scheduled for SANJU after July 10. Presently on IV cefepime and p.o. Cipro floxacillin as per ID recommendations. She is going to complete the antibiotic therapy on July 30. 07/04/2019-patient admitted with endocarditis on IV cefepime and p.o. Cipro floxacillin. Plan to arrange for SANJU next week. 07/05/2019-patient is on IV cefepime, p.o. Cipro floxacillin and antibiotic course will be finished on July 30. Possible SANJU next week. 07/06/2019-patient is presently on IV cefepime, p.o. Cipro floxacillin for endocarditis. Plan to have a SANJU next week. Plan is to continue IV antibiotic therapy until #60. 07/07/2019-patient is presently on IV cefepime and p.o. Cipro floxacillin for endocarditis patient may go for a SANJU this week 07/08/2019-patient is presently on IV cefepime and Cipro floxacillin for endocarditis request for SANJU placed for tomorrow. 07/09/2019-patient has a SANJU done this morning Dr. Miguel Ángel watson called me to discuss the findings he thinks patient might have aortic valve vegetation. Plan is to continue the IV antibiotics as per ID recommendations. 07/10/2019-patient is going to receive IV cefepime and p.o. Cipro floxacillin for endocarditis. SANJU was done found to have a vegetation in the right aortic wall. 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 Presented to ED with dull retrosternal chest pain which has been present since valve replacement. Was a started started on IV vancomycin by Dr. Bowen hospitalist at [facility]. 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 [facility] on regional diversion at the admission time and was admitted here at [facility]. 05/21/2019. TTE LVEF 60%. No thrombus or vegetations noted. Severe tricuspid regurgitation. RSVP 48 to 53 mmHg.05/27/2019 Started on empiric broad-spectrum IV antibiotics. PICC line placed on 05/22/2018 on the left basilic vein. PICC line removed on 06/14/2019 as per ID recommendation. PICC line tip sent to culture. Multiple positive blood cultures for pseudomonas aeruginosa. Last negative blood culture 05/31/2019. Plan as per #1 06/24/2019-blood cultures came back positive for Pseudomonas aeruginosa on 05 29. Latest blood cultures are negative. As per ID recommendations PICC line was removed on . As listed above latest cultures are negative. Plan is to continue the present management. 06/25/2019-blood cultures from 05/29/2019 came back positive for Pseudomonas aeruginosa as per ID recommendations patient is on p.o. Cipro floxacillin and IV cephapirin. Waiting for a SANJU procedure after 01 July. Cultures are negative. Latest 06/26/2019-multiple repeated blood cultures are negative. Continue current treatment regimen. 06/29/2019-as above 07/02/2019-latest blood cultures from 06/25/2019 are negative. 07/04/2019-latest blood cultures are negative. Patient has endocarditis. History of IV drug abuse. SANJU is scheduled for next week. Plan is to continue IV cefepime and p.o. Cipro floxacillin. 07/05/2019-latest blood cultures are negative from 06/25 2019. She had a history of IV drug abuse admitted for endocarditis. Possible SANJU next week. Plan is to continue cefepime and p.o. ciprofloxacin. 07/06/2019-latest blood cultures are negative. Prior blood cultures are positive for Pseudomonas aeruginosa and patient getting treatment for endocarditis. For possible SANJU next week. Plan is to continue antibiotic therapy until July 30. 07/07/2019-initial cultures came back positive for Pseudomonas aeruginosa and latest blood cultures are negative. Patient is receiving IV cephapirin and p.o. Cipro plan is to arrange for a SANJU on Sunday.\ 07/08/2019-initial blood cultures are positive for pseudomonas aeruginosa and follow-up blood cultures are negative. Patient is scheduled for a SANJU tomorrow and to continue IV cefepime and p.o. Cipro floxacillin. 07/09/2019-blood cultures are positive for pseudomonas aeruginosa initially on the repeat blood cultures came back negative. Presently on IV cefepime and p.o. Cipro floxacillin. SANJU shows aortic valve vegetation. Plan is to continue the antibiotic therapy. 10/10/2018-latest blood cultures are negative. 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 Plan is to continue the antibiotic therapy until July 30. (3) IV drug abuse Is this a current diagnosis for this admission?: Yes Plan: Persistent IV drug abuse. Unfortunately patient seems to be abusing drugs while in the hospital. At times patient seems to be too sleepy. UDS on 06/08/2019 for back positive for opiates. Which was confirmed as morphine. Only on Subutex and tramadol in the hospital. Patient was advised on abstinence from recreational drug abuse. Currently on on Subutex since 05/27/2019 and tramadol. Was encouraged to rehab admission one day before discharge. 06/24/2019-patient has history of IV drug abuse. Counseling was provided today. 06/26/2019-continue Suboxone 06/29/2019-suspected self injection last night. Patient reports tachycardia was from using vape. Had a long discussion about compliance with hospital rules and treatment regimen. 07/02/2019-no complaints of any pains today. She is receiving Subutex and tramadol in the hospital. (4) Abdominal pain Qualifiers: Abdominal location: generalized Qualified Code(s): R10.84 - Generalized abdominal pain Is this a current diagnosis for this admission?: Yes Plan: Resolved. CT abdomen pelvis 06/06/2019 found no acute findings except for severe constipation. History of cholecystectomy. History of hepatitis C. History of hepatic steatosis. Lipase WNL. Continue beta-blockers and supportive measures. Continue bowel regimen. Encourage ambulation and high-fiber diet. 06/24/2019-patient came with complaints of abdominal pain. Which was resolved. Lipase levels are within normal limits. 06/26/2019-the patient does have history of hepatitis C. Since the rapid response 2 nights ago the patient exhibits increased LFTs. She does have a history of hepatitis C. I will recheck the liver enzymes and if they continue to increase I will obtain imaging of the abdomen. 06/27/2019-we discussed the elevated liver enzymes. She cannot remember when her last evaluation for hepatitis C was. I will check a hep C RNA level. We will continue to monitor the chemistries. 06/28/2019-liver enzymes are slowly improving. Unsure of the spike. Could be related to long-term antibiotics. We will continue to monitor. 07/02/19-patient has history of cholecystectomy, history of hepatitis C, history of hepatic steatosis lipase levels are within normal limits recently no complaints of abdominal pains. (5) Anemia Qualifiers: Anemia type: iron deficiency Iron deficiency anemia type: unspecified iron deficiency Qualified Code(s): D50.9 - Iron deficiency anemia, unspecified Is this a current diagnosis for this admission?: Yes Plan: Microcytic. Likely combination of anemia of chronic disease and iron deficiency anemia. Denies any easy bleeding, nosebleeds, hematemesis, hemoptysis, hematochezia, vaginal bleeding or melena. 05/30/2019. Iron panel. Serum iron 18.8, TIBC 270, saturation 7%, ferritin 213, folate 5.53, B12 folate 306, 06/08/2019. Status post 2 PRBC transfusion. Daily H&H, monitor for bleeding, supportive transfusions, ferrous sulfate. 06/24/2019-patient received 2 units of PRBC. During the hospital stay. Latest hemoglobin is 11.4. Stable. 06/25/2019-patient received 2 units of PRBC during the hospital stay latest hemoglobin is 11.4 plan is to closely trend the hemoglobin on daily basis. 06/26/2019-continue to monitor hemoglobin. 07/02/2019-patient's low latest hemoglobin is 10.3 stable. #6 ) plantar fasciitis-the patient developed tenderness under the arch of the left foot. I had physical therapy see the patient. They believe it is plantar fasciitis. She is on quinolone therapy long-term. This can have an adverse effect on tendons. We will continue to monitor. Physical therapy provided exercise plan for the patient. 06/29/2019-patient reports increased pain. I have added IV Toradol as an anti- inflammatory and physical therapy is working with her. 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 This puts the stop date at approximately July 14. She should still have a SANJU once that service is finally organized and offered. Anemia-continue iron supplement Drug abuse-continue Subutex Neuropathy-continue Neurontin Plantar fasciitis-she is working with physical therapy. Toradol is available. Consider wrapping her foot for support. Pain management-avoid narcotics completely 7.hyperkalemia Potassium today is 5.5 patient refused to take Kayexalate. to Recheck the potassium levels later on this evening. 07/04/2019-patient's potassium today 6.6 to Kayexalate and dextrose along with insulin IV to bring the potassium down repeat the potassium levels this afternoon. 07/05/2019-patient serum potassium is 5.5 today came down from 6.6 she was given Kayexalate along with the D50 1 amp and 8 units of regular insulin IV plan is to repeat the dose of 1 amp D50 and 6 units of regular insulin IV. Patient refusing Kayexalate. 07/06/2019-serum potassium is persistently high to start her on low potassium diet from today. 07/07/2019-latest serum potassium levels is 5.2 to recheck the labs today. Patient is on low potassium diet. 07/08/2019-patient serum potassium today is 4.9 hyperkalemia is resolved. - Time Time Spent with patient: 15-24 minutes
[2019-07-15] MEDS: ATORVASTATIN CALCIUM 40 MG TABLET PO SCH (22:00)
[2019-07-15] MEDS: QUETIAPINE FUMARATE 25 MG TABLET PO SCH (22:00)
[2019-07-16] MEDS: TIZANIDINE HCL 4 MG TABLET PO PRN ×4 (00:19→23:30)
[2019-07-16] MEDS: CEFEPIME 2 GM/D5W RTU 2 GM/50 ML RTUPB IV SCH ×3 (01:37→17:28)
[2019-07-16] MEDS: PANTOPRAZOLE SODIUM 40 MG TABLET.DR PO SCH (06:04)
[2019-07-16] MEDS: GABAPENTIN 300 MG CAPSULE PO SCH ×3 (06:04→21:08)
[2019-07-16] MEDS: BUPRENORPHINE HCL 2 MG SUBLINGUAL TABLET SL SCH ×2 (10:59→21:20)
[2019-07-16] MEDS: METOPROLOL TARTRATE 25 MG TABLET PO SCH ×2 (11:00→21:08)
[2019-07-16] MEDS: CIPROFLOXACIN HCL 750 MG TABLET PO SCH ×2 (11:00→21:08)
[2019-07-16] MEDS: FERROUS SULFATE 325 MG TABLET PO SCH (11:00)
[2019-07-16] MEDS: MAGNESIUM OXIDE 400 MG TABLET PO SCH ×2 (11:00→17:28)
[2019-07-16] MEDS: ACETAMINOPHEN 325 MG TABLET PO PRN ×2 (11:01→23:29)
[2019-07-16] MEDS: NORMAL SALINE 10 ML SDV (SCHEDULED) IV SCH ×2 (11:02→21:24)
[2019-07-16] MEDS: HEPARIN SOD (PORCINE) 5,000 UNIT/ML 1 ML VIAL SUBCUT SCH ×2 (11:03→21:22)
--- NOTE | 2019-07-16 15:11 | PDOC PROGRESS REPORT ---
Subjective Progress Note for:: 07/16/19 Subjective:: No adverse events overnight. No new complaints. Vital signs been stable. Eating and drinking without difficulty. No fevers. She was having some pain at her PICC line site this morning but has since resolved spontaneously Reason For Visit: IV DRUG ABUSE,SEPSIS,ENDOCARDITIS Physical Exam Vital Signs: Temp Pulse Resp BP Pulse Ox 97.6 F 80 17 124/66 100 07/16/19 07:26 07/16/19 07:26 07/16/19 07:26 07/16/19 07:26 07/16/19 07:26 Intake & Output 07/15/19 07/16/19 07/17/19 06:59 06:59 06:59 Intake Total 870 1432 360 Balance 870 1432 360 Weight 93.7 kg 94.5 kg 94.5 kg General appearance: PRESENT: no acute distress, cooperative, disheveled Respiratory exam: PRESENT: clear to auscultation sandrita, symmetrical, unlabored. ABSENT: accessory muscle use, chest wall tenderness, decreased breath sounds, prolonged expiratory phase, rales, rhonchi, tachypnea, wheezes Cardiovascular exam: PRESENT: RRR, +S1, +S2, audible systolic murmur Pulses: PRESENT: normal carotid pulses Vascular exam: PRESENT: normal capillary refill GI/Abdominal exam: PRESENT: normal bowel sounds, soft. ABSENT: distended, guarding, rebound, tenderness Extremities exam: ABSENT: clubbing, pedal edema Musculoskeletal exam: PRESENT: normal inspection. ABSENT: deformity Neurological exam: PRESENT: alert, awake, oriented to person, oriented to place, oriented to situation Psychiatric exam: PRESENT: appropriate affect, normal mood Skin exam: PRESENT: dry, warm Results Laboratory Results: 07/07/19 10:45 07/07/19 10:45 05/21/19 05/22/19 05/22/19 23:07 02:06 11:00 Creatine Kinase CK-MB (CK-2) Troponin I 0.098 0.098 0.070 NT-Pro-B Natriuret Pep 05/22/19 05/22/19 05/22/19 14:00 14:35 20:04 Creatine Kinase CK-MB (CK-2) Troponin I Cancelled 0.060 0.037 NT-Pro-B Natriuret Pep 05/28/19 05/28/1919 00:15 00:15 00:20 Creatine Kinase < 20 L < 20 L CK-MB (CK-2) 0.49 Troponin I 0.077 NT-Pro-B Natriuret Pep 06/02/19 06/02/19 06/02/19 00:20 06:15 06:15 Creatine Kinase < 20 L CK-MB (CK-2) 1.53 1.39 Troponin I 0.194 0.171 NT-Pro-B Natriuret Pep 06/02/19 06/02/19 06/28/19 13:30 13:30 03:40 Creatine Kinase < 20 L 26 L CK-MB (CK-2) 1.68 Troponin I 0.175 NT-Pro-B Natriuret Pep 4000 H Impressions: Chest X-Ray 05/21/19 23:04 IMPRESSION: 1. No acute pulmonary findings. 2. Previous sternotomy Abdomen Ultrasound 05/28/19 00:00 IMPRESSION: Mild splenomegaly. No acute findings otherwise. Abdomen/Pelvis CT 06/06/19 00:00 IMPRESSION: 1. Gastric distention and debris. Ileus. Constipation. 2. Normal appendix. No acute abdominopelvic abnormality. Guidance Fluoroscopy 06/23/19 00:00 IMPRESSION: SUCCESSFUL PLACEMENT OF A 5 FR DUAL LUMEN 38 CM PICC IN THE LEFT BASILIC VEIN. Interventional Vascular Procedure 06/23/19 00:00 IMPRESSION: SUCCESSFUL PLACEMENT OF A 5 FR DUAL LUMEN 38 CM PICC IN THE LEFT BASILIC VEIN. PICC Line Insertion 06/23/19 00:00 IMPRESSION: SUCCESSFUL PLACEMENT OF A 5 FR DUAL LUMEN 38 CM PICC IN THE LEFT BASILIC VEIN. Foot X-Ray 06/29/19 00:00 IMPRESSION: NEGATIVE STUDY OF THE LEFT FOOT. NO EXPLANATION FOR PAIN. Assessment and Plan - Diagnosis (1) Gram-negative bacteremia Is this a current diagnosis for this admission?: Yes Plan: She continues on antibiotics per infectious disease recommendations. Her stop date tentatively is July 30. (2) UTI (urinary tract infection) Qualifiers: Urinary tract infection type: acute cystitis Hematuria presence: without hematuria Qualified Code(s): N30.00 - Acute cystitis without hematuria Is this a current diagnosis for this admission?: Yes Plan: Resolved (3) Hypokalemia Is this a current diagnosis for this admission?: Yes Plan: Resolved (4) IV drug abuse Is this a current diagnosis for this admission?: Yes Plan: She is having to stay here to finish her antibiotics. This is the second time this year she is had endocarditis. (5) Endocarditis Qualifiers: Endocarditis type: infective Infective endocarditis organism: bacterial Chronicity: acute Qualified Code(s): I33.0 - Acute and subacute infective endocarditis Is this a current diagnosis for this admission?: Yes Plan: SANJU on 07/09/19 was positive for an 8 mm aortic valve vegetation. Treatment is as noted above. We will follow-up with infectious disease and cardiology r egarding whether or not the issue to be any revision to her treatment plan since this SANJU. 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 Presented to ED with dull retrosternal chest pain which has been present since valve replacement. Was a started started on IV vancomycin by Dr. Bowen hospitalist at [facility]. 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 [facility] on regional diversion at the admission time and was admitted here at [facility]. 05/21/2019. TTE LVEF 60%. No thrombus or vegetations noted. Severe tricuspid regurgitation. RSVP 48 to 53 mmHg.05/27/2019 Started on empiric broad-spectrum IV antibiotics. PICC line placed on 05/22/2018 on the left basilic vein. PICC line removed 06/14/2019 as per ID recommendation. Please refer to note. Tip was cultured which came back negative. Multiple positive blood cultures for pseudomonas aeruginosa. Last negative blood culture 05/31/2019 Last negative blood culture 05/31/2019. Day 23 of 56 days. Expected completion date 07/30/2019. Day 25 IV cefepime. Day 13 Ciprofloxacin 750 mg p.o. twice daily. Day 31 IV antibiotics. Received 10 days of IV levofloxacin. Switch to ciprofloxacin IV as per ID recommendation. I have been informed that [facility] will be able to do SANJU starting early June. Patient has stable and receiving IV antibiotics SANJU can wait until early June if not will call [facility] again for transfer for SANJU. 06/09/2019. Infectious disease consulted. Recommendations noted. Please refer to note. Unfortunately patient has a drug abuse and could not be sent home on IV antibiotics. 06/24/2019-patient has endocarditis not a candidate to go home with an IV antibiotic therapy. Patient may need a SANJU this week. pt is presently on IV cefepime. 06/25/2019-patient has history of endocarditis secondary to percent 10 to use of IV drug abuse. Admitted with fever and chills. Blood cultures came back positive for pseudomonas aeruginosa latest blood cultures are negative. Patient is presently on cefepime and p.o. ciprofloxacin. Plan is to arrange for SANJU after 01 July at this hospital. Last night patient has no fever but Reiger's and chills. To closely monitor her medical condition plan is to move her to [facility] today. 06/26/2019-unfortunately the SANJU service is not available yet. The patient will continue her antibiotic therapy. She will need 6 weeks from the first set of blood cultures that were no growth. 06/27/2019-no changes to the treatment plan. 06/28/2019-she is complaining of plantar fasciitis. Achilles tendons are nontender and appear intact. Will monitor while on quinolone therapy. 06/29/2019-no change in therapy at this time. Expected end date July 30. 07/02/2019-patient is admitted with endocarditis now the plan is to arrange for SANJU after 09 July here at [place]. In the meantime plan is to continue IV antibiotic therapy. Sedated 32 of IV antibiotic therapy patient is presently on IV cefepime and Cipro floxacillin 750 mg p.o. twice a day. 07/03/2019-patient is scheduled for SANJU after July 10. Presently on IV cefepime and p.o. Cipro floxacillin as per ID recommendations. She is going to complete the antibiotic therapy on July 30. 07/04/2019-patient admitted with endocarditis on IV cefepime and p.o. Cipro floxacillin. Plan to arrange for SANJU next week. 07/05/2019-patient is on IV cefepime, p.o. Cipro floxacillin and antibiotic course will be finished on July 30. Possible SANJU next week. 07/06/2019-patient is presently on IV cefepime, p.o. Cipro floxacillin for endocarditis. Plan to have a SANJU next week. Plan is to continue IV antibiotic therapy until #60. 07/07/2019-patient is presently on IV cefepime and p.o. Cipro floxacillin for endocarditis patient may go for a SANJU this week 07/08/2019-patient is presently on IV cefepime and Cipro floxacillin for endocarditis request for SANJU placed for tomorrow. 07/09/2019-patient has a SANJU done this morning Dr. Miguel Ángel watson called me to discuss the findings he thinks patient might have aortic valve vegetation. Plan is to continue the IV antibiotics as per ID recommendations. 07/10/2019-patient is going to receive IV cefepime and p.o. Cipro floxacillin for endocarditis. SANJU was done found to have a vegetation in the right aortic wall. 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 Presented to ED with dull retrosternal chest pain which has been present since valve replacement. Was a started started on IV vancomycin by Dr. Bowen hospitalist at [facility]. 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 [facility] on regional diversion at the admission time and was admitted here at [facility]. 05/21/2019. TTE LVEF 60%. No thrombus or vegetations noted. Severe tricuspid regurgitation. RSVP 48 to 53 mmHg.05/27/2019 Started on empiric broad-spectrum IV antibiotics. PICC line placed on 05/22/2018 on the left basilic vein. PICC line removed on 06/14/2019 as per ID recommendation. PICC line tip sent to culture. Multiple positive blood cultures for pseudomonas aeruginosa. Last negative blood culture 05/31/2019. Plan as per #1 06/24/2019-blood cultures came back positive for Pseudomonas aeruginosa on 05 29. Latest blood cultures are negative. As per ID recommendations PICC line was removed on 91. As listed above latest cultures are negative. Plan is to continue the present management. 06/25/2019-blood cultures from 05/29/2019 came back positive for Pseudomonas aeruginosa as per ID recommendations patient is on p.o. Cipro floxacillin and IV cephapirin. Waiting for a SANJU procedure after 01 July. Cultures are negative. Latest 06/26/2019-multiple repeated blood cultures are negative. Continue current treatment regimen. 06/29/2019-as above 07/02/2019-latest blood cultures from 06/25/2019 are negative. 07/04/2019-latest blood cultures are negative. Patient has endocarditis. History of IV drug abuse. SANJU is scheduled for next week. Plan is to continue IV cefepime and p.o. Cipro floxacillin. 07/05/2019-latest blood cultures are negative from 06/25 2019. She had a history of IV drug abuse admitted for endocarditis. Possible SANJU next week. Plan is to continue cefepime and p.o. ciprofloxacin. 07/06/2019-latest blood cultures are negative. Prior blood cultures are positive for Pseudomonas aeruginosa and patient getting treatment for endocarditis. For possible SANJU next week. Plan is to continue antibiotic therapy until July 30. 07/07/2019-initial cultures came back positive for Pseudomonas aeruginosa and latest blood cultures are negative. Patient is receiving IV cephapirin and p.o. Cipro plan is to arrange for a SANJU on Sunday.\ 07/08/2019-initial blood cultures are positive for pseudomonas aeruginosa and fo llow-up blood cultures are negative. Patient is scheduled for a SANJU tomorrow and to continue IV cefepime and p.o. Cipro floxacillin. 07/09/2019-blood cultures are positive for pseudomonas aeruginosa initially on the repeat blood cultures came back negative. Presently on IV cefepime and p.o. Cipro floxacillin. SANJU shows aortic valve vegetation. Plan is to continue the antibiotic therapy. 10/10/2018-latest blood cultures are negative. 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 Plan is to continue the antibiotic therapy until July 30. (3) IV drug abuse Is this a current diagnosis for this admission?: Yes Plan: Persistent IV drug abuse. Unfortunately patient seems to be abusing drugs while in the hospital. At times patient seems to be too sleepy. UDS on 06/08/2019 for back positive for opiates. Which was confirmed as morphine. Only on Subutex and tramadol in the hospital. Patient was advised on abstinence from recreational drug abuse. Currently on on Subutex since 05/27/2019 and tramadol. Was encouraged to rehab admission one day before discharge. 06/24/2019-patient has history of IV drug abuse. Counseling was provided today. 06/26/2019-continue Suboxone 06/29/2019-suspected self injection last night. Patient reports tachycardia was from using vape. Had a long discussion about compliance with hospital rules and treatment regimen. 07/02/2019-no complaints of any pains today. She is receiving Subutex and tramadol in the hospital. (4) Abdominal pain Qualifiers: Abdominal location: generalized Qualified Code(s): R10.84 - Generalized abdominal pain Is this a current diagnosis for this admission?: Yes Plan: Resolved. CT abdomen pelvis 06/06/2019 found no acute findings except for severe constipation. History of cholecystectomy. History of hepatitis C. History of hepatic steatosis. Lipase WNL. Continue beta-blockers and supportive measures. Continue bowel regimen. Encourage ambulation and high-fiber diet. 06/24/2019-patient came with complaints of abdominal pain. Which was resolved. Lipase levels are within normal limits. 06/26/2019-the patient does have history of hepatitis C. Since the rapid response 2 nights ago the patient exhibits increased LFTs. She does have a history of hepatitis C. I will recheck the liver enzymes and if they continue to increase I will obtain imaging of the abdomen. 06/27/2019-we discussed the elevated liver enzymes. She cannot remember when her last evaluation for hepatitis C was. I will check a hep C RNA level. We will continue to monitor the chemistries. 06/28/2019-liver enzymes are slowly improving. Unsure of the spike. Could be related to long-term antibiotics. We will continue to monitor. 07/02/19-patient has history of cholecystectomy, history of hepatitis C, history of hepatic steatosis lipase levels are within normal limits recently no complaints of abdominal pains. (5) Anemia Qualifiers: Anemia type: iron deficiency Iron deficiency anemia type: unspecified iron deficiency Qualified Code(s): D50.9 - Iron deficiency anemia, unspecified Is this a current diagnosis for this admission?: Yes Plan: Microcytic. Likely combination of anemia of chronic disease and iron deficiency anemia. Denies any easy bleeding, nosebleeds, hematemesis, hemoptysis, hematochezia, vaginal bleeding or melena. 05/30/2019. Iron panel. Serum iron 18.8, TIBC 270, saturation 7%, ferritin 213, folate 5.53, B12 folate 306, 06/08/2019. Status post 2 PRBC transfusion. Daily H&H, monitor for bleeding, supportive transfusions, ferrous sulfate. 06/24/2019-patient received 2 units of PRBC. During the hospital stay. Latest hemoglobin is 11.4. Stable. 06/25/2019-patient received 2 units of PRBC during the hospital stay latest hemoglobin is 11.4 plan is to closely trend the hemoglobin on daily basis. 06/26/2019-continue to monitor hemoglobin. 07/02/2019-patient's low latest hemoglobin is 10.3 stable. #6 ) plantar fasciitis-the patient developed tenderness under the arch of the left foot. I had physical therapy see the patient. They believe it is plantar fasciitis. She is on quinolone therapy long-term. This can have an adverse effect on tendons. We will continue to monitor. Physical therapy provided exercise plan for the patient. 06/29/2019-patient reports increased pain. I have added IV Toradol as an anti- inflammatory and physical therapy is working with her. 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 This puts the stop date at approximately July 14. She should still have a SANJU once that service is finally organized and offered. Anemia-continue iron supplement Drug abuse-continue Subutex Neuropathy-continue Neurontin Plantar fasciitis-she is working with physical therapy. Toradol is available. Consider wrapping her foot for support. Pain management-avoid narcotics completely 7.hyperkalemia Potassium today is 5.5 patient refused to take Kayexalate. to Recheck the potassium levels later on this evening. 07/04/2019-patient's potassium today 6.6 to Kayexalate and dextrose along with insulin IV to bring the potassium down repeat the potassium levels this afternoon. 07/05/2019-patient serum potassium is 5.5 today came down from 6.6 she was given Kayexalate along with the D50 1 amp and 8 units of regular insulin IV plan is to repeat the dose of 1 amp D50 and 6 units of regular insulin IV. Patient refusing Kayexalate. 07/06/2019-serum potassium is persistently high to start her on low potassium diet from today. 07/07/2019-latest serum potassium levels is 5.2 to recheck the labs today. Patient is on low potassium diet. 07/08/2019-patient serum potassium today is 4.9 hyperkalemia is resolved. - Time Time Spent with patient: 15-24 minutes
[2019-07-16] MEDS: ATORVASTATIN CALCIUM 40 MG TABLET PO SCH (21:08)
[2019-07-16] MEDS: QUETIAPINE FUMARATE 25 MG TABLET PO SCH (21:08)
[2019-07-17] MEDS: CEFEPIME 2 GM/D5W RTU 2 GM/50 ML RTUPB IV SCH ×3 (01:33→17:52)
[2019-07-17] MEDS: GABAPENTIN 300 MG CAPSULE PO SCH ×3 (05:25→22:18)
[2019-07-17] MEDS: PANTOPRAZOLE SODIUM 40 MG TABLET.DR PO SCH (05:25)
[2019-07-17] MEDS: FERROUS SULFATE 325 MG TABLET PO SCH (08:27)
[2019-07-17] MEDS: TIZANIDINE HCL 4 MG TABLET PO PRN ×3 (08:29→22:24)
[2019-07-17] MEDS: METOPROLOL TARTRATE 25 MG TABLET PO SCH (09:43)
[2019-07-17] MEDS: MAGNESIUM OXIDE 400 MG TABLET PO SCH ×2 (09:44→17:52)
[2019-07-17] MEDS: NORMAL SALINE 10 ML SDV (SCHEDULED) IV SCH ×2 (09:44→22:20)
[2019-07-17] MEDS: BUPRENORPHINE HCL 2 MG SUBLINGUAL TABLET SL SCH ×2 (09:44→22:18)
[2019-07-17] MEDS: CIPROFLOXACIN HCL 750 MG TABLET PO SCH ×2 (09:44→22:18)
[2019-07-17] MEDS: HEPARIN SOD (PORCINE) 5,000 UNIT/ML 1 ML VIAL SUBCUT SCH ×2 (09:45→22:08)
--- NOTE | 2019-07-17 15:50 | PDOC PROGRESS REPORT ---
Subjective Progress Note for:: 07/17/19 Subjective:: No adverse events overnight. No new complaints. Vital signs been stable. Eating and drinking without difficulty. She almost left AMA yesterday because we would not let her go smoke. She does not seem to care that this is a tobacco free campus, as all hospitals that I know of are. Reason For Visit: IV DRUG ABUSE,SEPSIS,ENDOCARDITIS Physical Exam Vital Signs: Temp Pulse Resp BP Pulse Ox 97.8 F 80 17 105/55 L 98 07/17/19 11:08 07/17/19 14:00 07/17/19 11:08 07/17/19 11:08 07/17/19 11:08 Intake & Output 07/16/19 07/17/19 07/18/19 06:59 06:59 06:59 Intake Total 1432 1314 530 Balance 1432 1314 530 Weight 94.5 kg 95.4 kg General appearance: PRESENT: no acute distress, cooperative, disheveled Respiratory exam: PRESENT: clear to auscultation sandrita, symmetrical, unlabored. ABSENT: accessory muscle use, chest wall tenderness, decreased breath sounds, prolonged expiratory phase, rales, rhonchi, tachypnea, wheezes Cardiovascular exam: PRESENT: RRR, +S1, +S2, audible systolic murmur Pulses: PRESENT: normal carotid pulses Vascular exam: PRESENT: normal capillary refill GI/Abdominal exam: PRESENT: normal bowel sounds, soft. ABSENT: distended, guarding, rebound, tenderness Extremities exam: ABSENT: clubbing, pedal edema Musculoskeletal exam: PRESENT: normal inspection. ABSENT: deformity Neurological exam: PRESENT: alert, awake, oriented to person, oriented to place, oriented to situation Psychiatric exam: PRESENT: appropriate affect, normal mood Skin exam: PRESENT: dry, warm Results Laboratory Results: 07/07/19 10:45 07/07/19 10:45 05/21/19 05/22/19 05/22/19 23:07 02:06 11:00 Creatine Kinase CK-MB (CK-2) Troponin I 0.098 0.098 0.070 NT-Pro-B Natriuret Pep 05/22/19 05/22/19 05/22/19 14:00 14:35 20:04 Creatine Kinase CK-MB (CK-2) Troponin I Cancelled 0.060 0.037 NT-Pro-B Natriuret Pep 05/28/19 05/28/19 06/02/19 00:15 00:15 00:20 Creatine Kinase < 20 L < 20 L CK-MB (CK-2) 0.49 Troponin I 0.077 NT-Pro-B Natriuret Pep 06/02/19 06/02/19 06/02/19 00:20 06:15 06:15 Creatine Kinase < 20 L CK-MB (CK-2) 1.53 1.39 Troponin I 0.194 0.171 NT-Pro-B Natriuret Pep 06/02/19 06/02/19 06/28/19 13:30 13:30 03:40 Creatine Kinase < 20 L 26 L CK-MB (CK-2) 1.68 Troponin I 0.175 NT-Pro-B Natriuret Pep 4000 H Impressions: Chest X-Ray 05/21/19 23:04 IMPRESSION: 1. No acute pulmonary findings. 2. Previous sternotomy Abdomen Ultrasound 05/28/19 00:00 IMPRESSION: Mild splenomegaly. No acute findings otherwise. Abdomen/Pelvis CT 06/06/19 00:00 IMPRESSION: 1. Gastric distention and debris. Ileus. Constipation. 2. Normal appendix. No acute abdominopelvic abnormality. Guidance Fluoroscopy 06/23/19 00:00 IMPRESSION: SUCCESSFUL PLACEMENT OF A 5 FR DUAL LUMEN 38 CM PICC IN THE LEFT BASILIC VEIN. Interventional Vascular Procedure 06/23/19 00:00 IMPRESSION: SUCCESSFUL PLACEMENT OF A 5 FR DUAL LUMEN 38 CM PICC IN THE LEFT BASILIC VEIN. PICC Line Insertion 06/23/19 00:00 IMPRESSION: SUCCESSFUL PLACEMENT OF A 5 FR DUAL LUMEN 38 CM PICC IN THE LEFT BASILIC VEIN. Foot X-Ray 06/29/19 00:00 IMPRESSION: NEGATIVE STUDY OF THE LEFT FOOT. NO EXPLANATION FOR PAIN. Assessment and Plan - Diagnosis (1) Gram-negative bacteremia Is this a current diagnosis for this admission?: Yes Plan: She continues on antibiotics per infectious disease recommendations. Her stop date tentatively is July 30. (2) UTI (urinary tract infection) Qualifiers: Urinary tract infection type: acute cystitis Hematuria presence: without hematuria Qualified Code(s): N30.00 - Acute cystitis without hematuria Is this a current diagnosis for this admission?: Yes Plan: Resolved (3) Hypokalemia Is this a current diagnosis for this admission?: Yes Plan: Resolved (4) IV drug abuse Is this a current diagnosis for this admission?: Yes Plan: She is having to stay here to finish her antibiotics. This is the second time this year she is had endocarditis. (5) Endocarditis Qualifiers: Endocarditis type: infective Infective endocarditis organism: bacterial Chronicity: acute Qualified Code(s): I33.0 - Acute and subacute infective endocarditis Is this a current diagnosis for this admission?: Yes Plan: SANJU on 07/09/19 was positive for an 8 mm aortic valve vegetation. Treatment is as noted above. We will follow-up with infectious disease and cardiology regarding whether or not the issue to be any revision to her treatment plan since this SANJU. 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 As per previous physicians note her weight guesser at at [place] is aware of this admission. Presented to ED with dull retrosternal chest pain which has been present since valve replacement. Was a started started on IV vancomycin by Dr. Bowen hospitalist at [facility]. 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 [facility] on regional diversion at the admission time and was admitted here at [facility]. 05/21/2019. TTE LVEF 60%. No thrombus or vegetations noted. Severe tricuspid regurgitation. RSVP 48 to 53 mmHg.05/27/2019 Started on empiric broad-spectrum IV antibiotics. PICC line placed on 05/22/2018 on the left basilic vein. PICC line removed 06/14/2019 as per ID recommendation. Please refer to note. Tip was cultured which came back negative. Multiple positive blood cultures for pseudomonas aeruginosa. Last negative blood culture 05/31/2019 Last negative blood culture 05/31/2019. Day 23 of 56 days. Expected completion date 07/30/2019. Day 25 IV cefepime. Day 13 Ciprofloxacin 750 mg p.o. twice daily. Day 31 IV antibiotics. Received 10 days of IV levofloxacin. Switch to ciprofloxacin IV as per ID recommendation. I have been informed that [facility] will be able to do SANJU starting early June. Patient has stable and receiving IV antibiotics SANJU can wait until early June if not will call [facility] again for transfer for SANJU. 06/09/2019. Infectious disease consulted. Recommendations noted. Please refer to note. Unfortunately patient has a drug abuse and could not be sent home on IV antibiotics. 06/24/2019-patient has endocarditis not a candidate to go home with an IV antibiotic therapy. Patient may need a SANJU this week. pt is presently on IV cefepime. 06/25/2019-patient has history of endocarditis secondary to percent 10 to use of IV drug abuse. Admitted with fever and chills. Blood cultures came back positive for pseudomonas aeruginosa latest blood cultures are negative. Patient is presently on cefepime and p.o. ciprofloxacin. Plan is to arrange for SANJU after 01 July at this hospital. Last night patient has no fever but Reiger's and chills. To closely monitor her medical condition plan is to move her to [facility] today. 06/26/2019-unfortunately the SANJU service is not available yet. The patient will continue her antibiotic therapy. She will need 6 weeks from the first set of blood cultures that were no growth. 06/27/2019-no changes to the treatment plan. 06/28/2019-she is complaining of plantar fasciitis. Achilles tendons are nont ovidio and appear intact. Will monitor while on quinolone therapy. 06/29/2019-no change in therapy at this time. Expected end date July 30. 07/02/2019-patient is admitted with endocarditis now the plan is to arrange for SANJU after 09 July here at [place]. In the meantime plan is to continue IV antibiotic therapy. Sedated 32 of IV antibiotic therapy patient is presently on IV cefepime and Cipro floxacillin 750 mg p.o. twice a day. 07/03/2019-patient is scheduled for SANJU after July 10. Presently on IV cefepime and p.o. Cipro floxacillin as per ID recommendations. She is going to complete the antibiotic therapy on July 30. 07/04/2019-patient admitted with endocarditis on IV cefepime and p.o. Cipro floxacillin. Plan to arrange for SANJU next week. 07/05/2019-patient is on IV cefepime, p.o. Cipro floxacillin and antibiotic course will be finished on July 30. Possible SANJU next week. 07/06/2019-patient is presently on IV cefepime, p.o. Cipro floxacillin for endocarditis. Plan to have a SANJU next week. Plan is to continue IV antibiotic therapy until #60. 07/07/2019-patient is presently on IV cefepime and p.o. Cipro floxacillin for endocarditis patient may go for a SANJU this week 07/08/2019-patient is presently on IV cefepime and Cipro floxacillin for endocarditis request for SANJU placed for tomorrow. 07/09/2019-patient has a SANJU done this morning Dr. Miguel Ángel watson called me to discuss the findings he thinks patient might have aortic valve vegetation. Plan is to continue the IV antibiotics as per ID recommendations. 07/10/2019-patient is going to receive IV cefepime and p.o. Cipro floxacillin for endocarditis. SANJU was done found to have a vegetation in the right aortic wall. 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 Presented to ED with dull retrosternal chest pain which has been present since valve replacement. Was a started started on IV vancomycin by Dr. Bowen hospitalist at [facility]. 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 [facility] on regional diversion at the admission time and was admitted here at [facility]. 05/21/2019. TTE LVEF 60%. No thrombus or vegetations noted. Severe tricuspid regurgitation. RSVP 48 to 53 mmHg.05/27/2019 Started on empiric broad-spectrum IV antibiotics. PICC line placed on 05/22/2018 on the left basilic vein. PICC line removed on 06/14/2019 as per ID recommendation. PICC line tip sent to culture. Multiple positive blood cultures for pseudomonas aeruginosa. Last negative blood culture 05/31/2019. Plan as per #1 06/24/2019-blood cultures came back positive for Pseudomonas aeruginosa on 05 29. Latest blood cultures are negative. As per ID recommendations PICC line was removed on 912. As listed above latest cultures are negative. Plan is to continue the present management. 06/25/2019-blood cultures from 05/29/2019 came back positive for Pseudomonas aeruginosa as per ID recommendations patient is on p.o. Cipro floxacillin and IV cephapirin. Waiting for a SANJU procedure after 01 July. Cultures are negative. Latest 06/26/2019-multiple repeated blood cultures are negative. Continue current treatment regimen. 06/29/2019-as above 07/02/2019-latest blood cultures from 06/25/2019 are negative. 07/04/2019-latest blood cultures are negative. Patient has endocarditis. History of IV drug abuse. SANJU is scheduled for next week. Plan is to continue IV cefepime and p.o. Cipro floxacillin. 07/05/2019-latest blood cultures are negative from 06/25 2019. She had a history of IV drug abuse admitted for endocarditis. Possible SANJU next week. Plan is to continue cefepime and p.o. ciprofloxacin. 07/06/2019-latest blood cultures are negative. Prior blood cultures are positiv e for Pseudomonas aeruginosa and patient getting treatment for endocarditis. For possible SANJU next week. Plan is to continue antibiotic therapy until July 30. 07/07/2019-initial cultures came back positive for Pseudomonas aeruginosa and latest blood cultures are negative. Patient is receiving IV cephapirin and p.o. Cipro plan is to arrange for a SANJU on Sunday.\ 07/08/2019-initial blood cultures are positive for pseudomonas aeruginosa and follow-up blood cultures are negative. Patient is scheduled for a SANJU tomorrow and to continue IV cefepime and p.o. Cipro floxacillin. 07/09/2019-blood cultures are positive for pseudomonas aeruginosa initially on the repeat blood cultures came back negative. Presently on IV cefepime and p.o. Cipro floxacillin. SANJU shows aortic valve vegetation. Plan is to continue the antibiotic therapy. 10/10/2018-latest blood cultures are negative. 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 Plan is to continue the antibiotic therapy until July 30. (3) IV drug abuse Is this a current diagnosis for this admission?: Yes Plan: Persistent IV drug abuse. Unfortunately patient seems to be abusing drugs while in the hospital. At times patient seems to be too sleepy. UDS on 06/08/2019 for back positive for opiates. Which was confirmed as morphine. Only on Subutex and tramadol in the hospital. Patient was advised on abstinence from recreational drug abuse. Currently on on Subutex since 05/27/2019 and tramadol. Was encouraged to rehab admission one day before discharge. 06/24/2019-patient has history of IV drug abuse. Counseling was provided today. 06/26/2019-continue Suboxone 06/29/2019-suspected self injection last night. Patient reports tachycardia was from using vape. Had a long discussion about compliance with hospital rules and treatment regimen. 07/02/2019-no complaints of any pains today. She is receiving Subutex and tramadol in the hospital. (4) Abdominal pain Qualifiers: Abdominal location: generalized Qualified Code(s): R10.84 - Generalized abdominal pain Is this a current diagnosis for this admission?: Yes Plan: Resolved. CT abdomen pelvis 06/06/2019 found no acute findings except for severe cons tipation. History of cholecystectomy. History of hepatitis C. History of hepatic steatosis. Lipase WNL. Continue beta-blockers and supportive measures. Continue bowel regimen. Encourage ambulation and high-fiber diet. 06/24/2019-patient came with complaints of abdominal pain. Which was resolved. Lipase levels are within normal limits. 06/26/2019-the patient does have history of hepatitis C. Since the rapid response 2 nights ago the patient exhibits increased LFTs. She does have a history of hepatitis C. I will recheck the liver enzymes and if they continue to increase I will obtain imaging of the abdomen. 06/27/2019-we discussed the elevated liver enzymes. She cannot remember when her last evaluation for hepatitis C was. I will check a hep C RNA level. We will continue to monitor the chemistries. 06/28/2019-liver enzymes are slowly improving. Unsure of the spike. Could be related to long-term antibiotics. We will continue to monitor. 07/02/19-patient has history of cholecystectomy, history of hepatitis C, history of hepatic steatosis lipase levels are within normal limits recently no complaints of abdominal pains. (5) Anemia Qualifiers: Anemia type: iron deficiency Iron deficiency anemia type: unspecified iron deficiency Qualified Code(s): D50.9 - Iron deficiency anemia, unspecified Is this a current diagnosis for this admission?: Yes Plan: Microcytic. Likely combination of anemia of chronic disease and iron deficiency anemia. Denies any easy bleeding, nosebleeds, hematemesis, hemoptysis, hematochezia, vaginal bleeding or melena. 05/30/2019. Iron panel. Serum iron 18.8, TIBC 270, saturation 7%, ferritin 213, folate 5.53, B12 folate 306, 06/08/2019. Status post 2 PRBC transfusion. Daily H&H, monitor for bleeding, supportive transfusions, ferrous sulfate. 06/24/2019-patient received 2 units of PRBC. During the hospital stay. Latest hemoglobin is 11.4. Stable. 06/25/2019-patient received 2 units of PRBC during the hospital stay latest hemoglobin is 11.4 plan is to closely trend the hemoglobin on daily basis. 06/26/2019-continue to monitor hemoglobin. 07/02/2019-patient's low latest hemoglobin is 10.3 stable. #6 ) plantar fasciitis-the patient developed tenderness under the arch of the left foot. I had physical therapy see the patient. They believe it is plantar fasciitis. She is on quinolone therapy long-term. This can have an adverse effect on tendons. We will continue to monitor. Physical therapy provided exercise plan for the patient. 06/29/2019-patient reports increased pain. I have added IV Toradol as an anti- inflammatory and physical therapy is working with her. 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 This puts the stop date at approximately July 14. She should still have a SANJU once that service is finally organized and offered. Anemia-continue iron supplement Drug abuse-continue Subutex Neuropathy-continue Neurontin Plantar fasciitis-she is working with physical therapy. Toradol is available. Consider wrapping her foot for support. Pain management-avoid narcotics completely 7.hyperkalemia Potassium today is 5.5 patient refused to take Kayexalate. to Recheck the potassium levels later on this evening. 07/04/2019-patient's potassium today 6.6 to Kayexalate and dextrose along with insulin IV to bring the potassium down repeat the potassium levels this afternoon. 07/05/2019-patient serum potassium is 5.5 today came down from 6.6 she was given Kayexalate along with the D50 1 amp and 8 units of regular insulin IV plan is to repeat the dose of 1 amp D50 and 6 units of regular insulin IV. Patient refusing Kayexalate. 07/06/2019-serum potassium is persistently high to start her on low potassium diet from today. 07/07/2019-latest serum potassium levels is 5.2 to recheck the labs today. Patient is on low potassium diet. 07/08/2019-patient serum potassium today is 4.9 hyperkalemia is resolved. - Time Time Spent with patient: 15-24 minutes
[2019-07-17] MEDS: QUETIAPINE FUMARATE 25 MG TABLET PO SCH (22:19)
[2019-07-17] MEDS: ATORVASTATIN CALCIUM 40 MG TABLET PO SCH (22:19)
[2019-07-18] MEDS: CEFEPIME 2 GM/D5W RTU 2 GM/50 ML RTUPB IV SCH ×3 (01:57→17:55)
[2019-07-18] MEDS: TIZANIDINE HCL 4 MG TABLET PO PRN ×3 (04:56→22:09)
[2019-07-18] MEDS: PANTOPRAZOLE SODIUM 40 MG TABLET.DR PO SCH (06:39)
[2019-07-18] MEDS: GABAPENTIN 300 MG CAPSULE PO SCH ×3 (06:39→22:08)
[2019-07-18] MEDS: CIPROFLOXACIN HCL 750 MG TABLET PO SCH ×2 (09:32→22:09)
[2019-07-18] MEDS: NORMAL SALINE 10 ML SDV (SCHEDULED) IV SCH ×2 (09:32→22:09)
[2019-07-18] MEDS: BUPRENORPHINE HCL 2 MG SUBLINGUAL TABLET SL SCH ×2 (09:32→22:08)
[2019-07-18] MEDS: MAGNESIUM OXIDE 400 MG TABLET PO SCH ×2 (09:33→17:50)
[2019-07-18] MEDS: FERROUS SULFATE 325 MG TABLET PO SCH (09:33)
[2019-07-18] MEDS: HEPARIN SOD (PORCINE) 5,000 UNIT/ML 1 ML VIAL SUBCUT SCH ×2 (09:33→22:04)
--- NOTE | 2019-07-18 16:20 | PDOC PROGRESS REPORT ---
Subjective Subjective:: No adverse events overnight. No new complaints. Vital signs been stable. Eating and drinking without difficulty. Reason For Visit: IV DRUG ABUSE,SEPSIS,ENDOCARDITIS Physical Exam Vital Signs: Temp Pulse Resp BP Pulse Ox 97.9 F 87 18 116/62 100 07/17/19 20:21 07/18/19 14:00 07/17/19 20:21 07/17/19 20:21 07/17/19 20:21 Intake & Output 07/17/19 07/18/19 07/19/19 06:59 06:59 06:59 Intake Total 1314 1272 475 Balance 1314 1272 475 Weight 95.4 kg 95 kg General appearance: PRESENT: no acute distress, cooperative, disheveled Respiratory exam: PRESENT: clear to auscultation sandrita, symmetrical, unlabored. ABSENT: accessory muscle use, chest wall tenderness, decreased breath sounds, prolonged expiratory phase, rales, rhonchi, tachypnea, wheezes Cardiovascular exam: PRESENT: RRR, +S1, +S2, audible systolic murmur Pulses: PRESENT: normal carotid pulses Vascular exam: PRESENT: normal capillary refill GI/Abdominal exam: PRESENT: normal bowel sounds, soft. ABSENT: distended, guarding, rebound, tenderness Extremities exam: ABSENT: clubbing, pedal edema Musculoskeletal exam: PRESENT: normal inspection. ABSENT: deformity Neurological exam: PRESENT: alert, awake, oriented to person, oriented to place, oriented to situation Psychiatric exam: PRESENT: appropriate affect, normal mood Skin exam: PRESENT: dry, warm Results Laboratory Results: 07/07/19 10:45 07/07/19 10:45 05/21/19 05/22/19 05/22/19 23:07 02:06 11:00 Creatine Kinase CK-MB (CK-2) Troponin I 0.098 0.098 0.070 NT-Pro-B Natriuret Pep 05/22/19 05/22/19 05/22/19 14:00 14:35 20:04 Creatine Kinase CK-MB (CK-2) Troponin I Cancelled 0.060 0.037 NT-Pro-B Natriuret Pep 05/28/19 05/28/19 06/02/19 00:15 00:15 00:20 Creatine Kinase < 20 L < 20 L CK-MB (CK-2) 0.49 Troponin I 0.077 NT-Pro-B Natriuret Pep 06/02/19 06/02/19 06/02/19 00:20 06:15 06:15 Creatine Kinase < 20 L CK-MB (CK-2) 1.53 1.39 Troponin I 0.194 0.171 NT-Pro-B Natriuret Pep 06/02/19 06/02/19 06/28/19 13:30 13:30 03:40 Creatine Kinase < 20 L 26 L CK-MB (CK-2) 1.68 Troponin I 0.175 NT-Pro-B Natriuret Pep 4000 H Impressions: Chest X-Ray 05/21/19 23:04 IMPRESSION: 1. No acute pulmonary findings. 2. Previous sternotomy Abdomen Ultrasound 05/28/19 00:00 IMPRESSION: Mild splenomegaly. No acute findings otherwise. Abdomen/Pelvis CT 06/06/19 00:00 IMPRESSION: 1. Gastric distention and debris. Ileus. Constipation. 2. Normal appendix. No acute abdominopelvic abnormality. Guidance Fluoroscopy 06/23/19 00:00 IMPRESSION: SUCCESSFUL PLACEMENT OF A 5 FR DUAL LUMEN 38 CM PICC IN THE LEFT BASILIC VEIN. Interventional Vascular Procedure 06/23/19 00:00 IMPRESSION: SUCCESSFUL PLACEMENT OF A 5 FR DUAL LUMEN 38 CM PICC IN THE LEFT BASILIC VEIN. PICC Line Insertion 06/23/19 00:00 IMPRESSION: SUCCESSFUL PLACEMENT OF A 5 FR DUAL LUMEN 38 CM PICC IN THE LEFT BASILIC VEIN. Foot X-Ray 06/29/19 00:00 IMPRESSION: NEGATIVE STUDY OF THE LEFT FOOT. NO EXPLANATION FOR PAIN. Assessment and Plan - Diagnosis (1) Gram-negative bacteremia Is this a current diagnosis for this admission?: Yes Plan: She continues on antibiotics per infectious disease recommendations. Her stop date tentatively is July 30. (2) UTI (urinary tract infection) Qualifiers: Urinary tract infection type: acute cystitis Hematuria presence: without hematuria Qualified Code(s): N30.00 - Acute cystitis without hematuria Is this a current diagnosis for this admission?: Yes Plan: Resolved (3) Hypokalemia Is this a current diagnosis for this admission?: Yes Plan: Resolved (4) IV drug abuse Is this a current diagnosis for this admission?: Yes Plan: She is having to stay here to finish her antibiotics. This is the second time this year she is had endocarditis. (5) Endocarditis Qualifiers: Endocarditis type: infective Infective endocarditis organism: bacterial Chronicity: acute Qualified Code(s): I33.0 - Acute and subacute infective endocarditis Is this a current diagnosis for this admission?: Yes Plan: SANJU on 07/09/19 was positive for an 8 mm aortic valve vegetation. Treatment is as noted above. We will follow-up with infectious disease and cardiology regarding whether or not the issue to be any revision to her treatment plan since this SANJU. 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 As per previous physicians note her naturopathic doctor at at [place] is aware of this admission. Presented to ED with dull retrosternal chest pain which has been present since valve replacement. Was a started started on IV vancomycin by Dr. Bowen hospitalist at [facility]. 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 [facility] on regional diversion at the admission time and was admitted here at [facility]. 05/21/2019. TTE LVEF 60%. No thrombus or vegetations noted. Severe tricuspid regurgitation. RSVP 48 to 53 mmHg.05/27/2019 Started on empiric broad-spectrum IV antibiotics. PICC line placed on 05/22/2018 on the left basilic vein. PICC line removed 06/14/2019 as per ID recommendation. Please refer to note. Tip was cultured which came back negative. Multiple positive blood cultures for pseudomonas aeruginosa. Last negative blood culture 05/31/2019 Last negative blood culture 05/31/2019. Day 23 of 56 days. Expected completion date 07/30/2019. Day 25 IV cefepime. Day 13 Ciprofloxacin 750 mg p.o. twice daily. Day 31 IV antibiotics. Received 10 days of IV levofloxacin. Switch to ciprofloxacin IV as per ID recommendation. I have been informed that [facility] will be able to do SANJU starting early June. Patient has stable and receiving IV antibiotics SANJU can wait until early June if not will call [facility] again for transfer for SANJU. 06/09/2019. Infectious disease consulted. Recommendations noted. Please refer to note. Unfortunately patient has a drug abuse and could not be sent home on IV antibiotics. 06/24/2019-patient has endocarditis not a candidate to go home with an IV antibiotic therapy. Patient may need a SANJU this week. pt is presently on IV cefepime. 06/25/2019-patient has history of endocarditis secondary to percent 10 to use of IV drug abuse. Admitted with fever and chills. Blood cultures came back positive for pseudomonas aeruginosa latest blood cultures are negative. Patient is presently on cefepime and p.o. ciprofloxacin. Plan is to arrange for SANJU after 01 July at this hospital. Last night patient has no fever but Reiger's and chills. To closely monitor her medical condition plan is to move her to [facility] today. 06/26/2019-unfortunately the SANJU service is not available yet. The patient will continue her antibiotic therapy. She will need 6 weeks from the first set of blood cultures that were no growth. 06/27/2019-no changes to the treatment plan. 06/28/2019-she is complaining of plantar fasciitis. Achilles tendons are nontender and appear intact. Will monitor while on quinolone therapy. 06/29/2019-no change in therapy at this time. Expected end date July 30. 07/02/2019-patient is admitted with endocarditis now the plan is to arrange for SANJU after 09 July here at [place]. In the meantime plan is to continue IV antibiotic therapy. Sedated 32 of IV antibiotic therapy patient is presently on IV cefepime and Cipro floxacillin 750 mg p.o. twice a day. 07/03/2019-patient is scheduled for SANJU after July 10. Presently on IV cefepime and p.o. Cipro floxacillin as per ID recommendations. She is going to complete the antibiotic therapy on July 30. 07/04/2019-patient admitted with endocarditis on IV cefepime and p.o. Cipro flox acillin. Plan to arrange for SANJU next week. 07/05/2019-patient is on IV cefepime, p.o. Cipro floxacillin and antibiotic course will be finished on July 30. Possible SANJU next week. 07/06/2019-patient is presently on IV cefepime, p.o. Cipro floxacillin for endocarditis. Plan to have a SANJU next week. Plan is to continue IV antibiotic therapy until #60. 07/07/2019-patient is presently on IV cefepime and p.o. Cipro floxacillin for endocarditis patient may go for a SANJU this week 07/08/2019-patient is presently on IV cefepime and Cipro floxacillin for endocarditis request for SANJU placed for tomorrow. 07/09/2019-patient has a SANJU done this morning Dr. Miguel Ángel watson called me to discuss the findings he thinks patient might have aortic valve vegetation. Plan is to continue the IV antibiotics as per ID recommendations. 07/10/2019-patient is going to receive IV cefepime and p.o. Cipro floxacillin for endocarditis. SANJU was done found to have a vegetation in the right aortic wall. 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 Presented to ED with dull retrosternal chest pain which has been present since valve replacement. Was a started started on IV vancomycin by Dr. Bowen hospitalist at [facility]. 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 [facility] on regional diversion at the admission time and was admitted here at [facility]. 05/21/2019. TTE LVEF 60%. No thrombus or vegetations noted. Severe tricuspid regurgitation. RSVP 48 to 53 mmHg.05/27/2019 Started on empiric broad-spectrum IV antibiotics. PICC line placed on 05/22/2018 on the left basilic vein. PICC line removed on 06/14/2019 as per ID recommendation. PICC line tip sent to culture. Multiple positive blood cultures for pseudomonas aeruginosa. Last negative blood culture 05/31/2019. Plan as per #1 06/24/2019-blood cultures came back positive for Pseudomonas aeruginosa on 05 29. Latest blood cultures are negative. As per ID recommendations PICC line was removed on . As listed above latest cultures are negative. Plan is to continue the present management. 06/25/2019-blood cultures from 05/29/2019 came back positive for Pseudomonas aeruginosa as per ID recommendations patient is on p.o. Cipro floxacillin and IV cephapirin. Waiting for a SANJU procedure after 01 July. Cultures are negative. Latest 06/26/2019-multiple repeated blood cultures are negative. Continue current treatment regimen. 06/29/2019-as above 07/02/2019-latest blood cultures from 06/25/2019 are negative. 07/04/2019-latest blood cultures are negative. Patient has endocarditis. History of IV drug abuse. SANJU is scheduled for next week. Plan is to continue IV cefepime and p.o. Cipro floxacillin. 07/05/2019-latest blood cultures are negative from 06/25 2019. She had a history of IV drug abuse admitted for endocarditis. Possible SANJU next week. Plan is to continue cefepime and p.o. ciprofloxacin. 07/06/2019-latest blood cultures are negative. Prior blood cultures are positive for Pseudomonas aeruginosa and patient getting treatment for endocarditis. For possible SANJU next week. Plan is to continue antibiotic therapy until July 30. 07/07/2019-initial cultures came back positive for Pseudomonas aeruginosa and latest blood cultures are negative. Patient is receiving IV cephapirin and p.o. Cipro plan is to arrange for a SANJU on Sunday.\ 07/08/2019-initial blood cultures are positive for pseudomonas aeruginosa and follow-up blood cultures are negative. Patient is scheduled for a SANJU tomorrow and to continue IV cefepime and p.o. Cipro floxacillin. 07/09/2019-blood cultures are positive for pseudomonas aeruginosa initially on the repeat blood cultures came back negative. Presently on IV cefepime and p.o. Cipro floxacillin. SANJU shows aortic valve vegetation. Plan is to continue the antibiotic therapy. 10/10/2018-latest blood cultures are negative. 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 Plan is to continue the antibiotic therapy until July 30. (3) IV drug abuse Is this a current diagnosis for this admission?: Yes Plan: Persistent IV drug abuse. Unfortunately patient seems to be abusing drugs while in the hospital. At times patient seems to be too sleepy. UDS on 06/08/2019 for back positive for opiates. Which was confirmed as morphine. Only on Subutex and tramadol in the hospital. Patient was advised on abstinence from recreational drug abuse. Currently on on Subutex since 05/27/2019 and tramadol. Was encouraged to rehab admission one day before discharge. 06/24/2019-patient has history of IV drug abuse. Counseling was provided today. 06/26/2019-continue Suboxone 06/29/2019-suspected self injection last night. Patient reports tachycardia was from using vape. Had a long discussion about compliance with hospital rules and treatment regimen. 07/02/2019-no complaints of any pains today. She is receiving Subutex and tramadol in the hospital. (4) Abdominal pain Qualifiers: Abdominal location: generalized Qualified Code(s): R10.84 - Generalized abdominal pain Is this a current diagnosis for this admission?: Yes Plan: Resolved. CT abdomen pelvis 06/06/2019 found no acute findings except for severe constipation. History of cholecystectomy. History of hepatitis C. History of hepatic steatosis. Lipase WNL. Continue beta-blockers and supportive measures. Continue bowel regimen. Encourage ambulation and high-fiber diet. 06/24/2019-patient came with complaints of abdominal pain. Which was resolved. Lipase levels are within normal limits. 06/26/2019-the patient does have history of hepatitis C. Since the rapid respons e 2 nights ago the patient exhibits increased LFTs. She does have a history of hepatitis C. I will recheck the liver enzymes and if they continue to increase I will obtain imaging of the abdomen. 06/27/2019-we discussed the elevated liver enzymes. She cannot remember when her last evaluation for hepatitis C was. I will check a hep C RNA level. We will continue to monitor the chemistries. 06/28/2019-liver enzymes are slowly improving. Unsure of the spike. Could be related to long-term antibiotics. We will continue to monitor. 07/02/19-patient has history of cholecystectomy, history of hepatitis C, history of hepatic steatosis lipase levels are within normal limits recently no complain ts of abdominal pains. (5) Anemia Qualifiers: Anemia type: iron deficiency Iron deficiency anemia type: unspecified iron deficiency Qualified Code(s): D50.9 - Iron deficiency anemia, unspecified Is this a current diagnosis for this admission?: Yes Plan: Microcytic. Likely combination of anemia of chronic disease and iron deficiency anemia. Denies any easy bleeding, nosebleeds, hematemesis, hemoptysis, hematochezia, vaginal bleeding or melena. 05/30/2019. Iron panel. Serum iron 18.8, TIBC 270, saturation 7%, ferritin 213, folate 5.53, B12 folate 306, 06/08/2019. Status post 2 PRBC transfusion. Daily H&H, monitor for bleeding, supportive transfusions, ferrous sulfate. 06/24/2019-patient received 2 units of PRBC. During the hospital stay. Latest hemoglobin is 11.4. Stable. 06/25/2019-patient received 2 units of PRBC during the hospital stay latest hemoglobin is 11.4 plan is to closely trend the hemoglobin on daily basis. 06/26/2019-continue to monitor hemoglobin. 07/02/2019-patient's low latest hemoglobin is 10.3 stable. #6 ) plantar fasciitis-the patient developed tenderness under the arch of the left foot. I had physical therapy see the patient. They believe it is plantar fasciitis. She is on quinolone therapy long-term. This can have an adverse effect on tendons. We will continue to monitor. Physical therapy provided exercise plan for the patient. 06/29/2019-patient reports increased pain. I have added IV Toradol as an anti- inflammatory and physical therapy is working with her. 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 This puts the stop date at approximately July 14. She should still have a SANJU once that service is finally organized and offered. Anemia-continue iron supplement Drug abuse-continue Subutex Neuropathy-continue Neurontin Plantar fasciitis-she is working with physical therapy. Toradol is available. Consider wrapping her foot for support. Pain management-avoid narcotics completely 7.hyperkalemia Potassium today is 5.5 patient refused to take Kayexalate. to Recheck the potassium levels later on this evening. 07/04/2019-patient's potassium today 6.6 to Kayexalate and dextrose along with insulin IV to bring the potassium down repeat the potassium levels this afternoon. 07/05/2019-patient serum potassium is 5.5 today came down from 6.6 she was given Kayexalate along with the D50 1 amp and 8 units of regular insulin IV plan is to repeat the dose of 1 amp D50 and 6 units of regular insulin IV. Patient refusing Kayexalate. 07/06/2019-serum potassium is persistently high to start her on low potassium diet from today. 07/07/2019-latest serum potassium levels is 5.2 to recheck the labs today. P kalpesh is on low potassium diet. 07/08/2019-patient serum potassium today is 4.9 hyperkalemia is resolved. - Time Time Spent with patient: 15-24 minutes
[2019-07-18] MEDS ORDERED: IBUPROFEN 800 MG TABLET PO ONE (18:00)
[2019-07-18] MEDS: QUETIAPINE FUMARATE 25 MG TABLET PO SCH (22:09)
[2019-07-18] MEDS: ATORVASTATIN CALCIUM 40 MG TABLET PO SCH (22:09)
[2019-07-19] MEDS: CEFEPIME 2 GM/D5W RTU 2 GM/50 ML RTUPB IV SCH ×3 (03:18→17:46)
[2019-07-19] MEDS: TIZANIDINE HCL 4 MG TABLET PO PRN ×2 (03:25→17:46)
[2019-07-19] MEDS: GABAPENTIN 300 MG CAPSULE PO SCH ×3 (06:55→21:22)
[2019-07-19] MEDS: PANTOPRAZOLE SODIUM 40 MG TABLET.DR PO SCH (06:55)
[2019-07-19] MEDS: FERROUS SULFATE 325 MG TABLET PO SCH (10:40)
[2019-07-19] MEDS: CIPROFLOXACIN HCL 750 MG TABLET PO SCH ×2 (10:40→21:31)
[2019-07-19] MEDS: NORMAL SALINE 10 ML SDV (SCHEDULED) IV SCH ×2 (10:42→21:24)
[2019-07-19] MEDS: HEPARIN SOD (PORCINE) 5,000 UNIT/ML 1 ML VIAL SUBCUT SCH ×2 (10:42→21:23)
[2019-07-19] MEDS: MAGNESIUM OXIDE 400 MG TABLET PO SCH ×2 (10:42→17:46)
[2019-07-19] MEDS: BUPRENORPHINE HCL 2 MG SUBLINGUAL TABLET SL SCH ×2 (10:48→21:22)
--- NOTE | 2019-07-19 15:59 | PDOC PROGRESS REPORT ---
Subjective Progress Note for:: 07/19/19 Subjective:: No adverse events overnight. No new complaints. Vital signs been stable. Eating and drinking without difficulty. Reason For Visit: IV DRUG ABUSE,SEPSIS,ENDOCARDITIS Physical Exam Vital Signs: Temp Pulse Resp BP Pulse Ox 97.8 F 87 18 127/53 H 100 07/19/19 08:57 07/19/19 14:00 07/19/19 08:57 07/19/19 10:47 07/19/19 08:57 Intake & Output 07/18/19 07/19/19 07/20/19 06:59 06:59 06:59 Intake Total 1272020 460 Balance 1272 2020 460 Weight 95 kg 96.8 kg General appearance: PRESENT: no acute distress, cooperative, disheveled Respiratory exam: PRESENT: clear to auscultation sandrita, symmetrical, unlabored. ABSENT: accessory muscle use, chest wall tenderness, decreased breath sounds, prolonged expiratory phase, rales, rhonchi, tachypnea, wheezes Cardiovascular exam: PRESENT: RRR, +S1, +S2, audible systolic murmur Pulses: PRESENT: normal carotid pulses Vascular exam: PRESENT: normal capillary refill GI/Abdominal exam: PRESENT: normal bowel sounds, soft. ABSENT: distended, guar ding, rebound, tenderness Extremities exam: ABSENT: clubbing, pedal edema Musculoskeletal exam: PRESENT: normal inspection. ABSENT: deformity Neurological exam: PRESENT: alert, awake, oriented to person, oriented to place, oriented to situation Psychiatric exam: PRESENT: appropriate affect, normal mood Skin exam: PRESENT: dry, warm Results Laboratory Results: 07/07/19 10:45 07/07/19 10:45 05/21/19 05/22/19 05/22/19 23:07 02:06 11:00 Creatine Kinase CK-MB (CK-2) Troponin I 0.098 0.098 0.070 NT-Pro-B Natriuret Pep 05/22/19 05/22/19 05/22/19 14:00 14:35 20:04 Creatine Kinase CK-MB (CK-2) Troponin I Cancelled 0.060 0.037 NT-Pro-B Natriuret Pep 05/28/19 05/28/19 06/02/19 00:15 00:15 00:20 Creatine Kinase < 20 L < 20 L CK-MB (CK-2) 0.49 Troponin I 0.077 NT-Pro-B Natriuret Pep 06/02/19 06/02/19 06/02/19 00:20 06:15 06:15 Creatine Kinase < 20 L CK-MB (CK-2) 1.53 1.39 Troponin I 0.194 0.171 NT-Pro-B Natriuret Pep 06/02/19 06/02/19 06/28/19 13:30 13:30 03:40 Creatine Kinase < 20 L 26 L CK-MB (CK-2) 1.68 Troponin I 0.175 NT-Pro-B Natriuret Pep 4000 H Impressions: Chest X-Ray 05/21/19 23:04 IMPRESSION: 1. No acute pulmonary findings. 2. Previous sternotomy Abdomen Ultrasound 05/28/19 00:00 IMPRESSION: Mild splenomegaly. No acute findings otherwise. Abdomen/Pelvis CT 06/06/19 00:00 IMPRESSION: 1. Gastric distention and debris. Ileus. Constipation. 2. Normal appendix. No acute abdominopelvic abnormality. Guidance Fluoroscopy 06/23/19 00:00 IMPRESSION: SUCCESSFUL PLACEMENT OF A 5 FR DUAL LUMEN 38 CM PICC IN THE LEFT BASILIC VEIN. Interventional Vascular Procedure 06/23/19 00:00 IMPRESSION: SUCCESSFUL PLACEMENT OF A 5 FR DUAL LUMEN 38 CM PICC IN THE LEFT BASILIC VEIN. PICC Line Insertion 06/23/19 00:00 IMPRESSION: SUCCESSFUL PLACEMENT OF A 5 FR DUAL LUMEN 38 CM PICC IN THE LEFT BASILIC VEIN. Foot X-Ray 06/29/19 00:00 IMPRESSION: NEGATIVE STUDY OF THE LEFT FOOT. NO EXPLANATION FOR PAIN. Assessment and Plan - Diagnosis (1) Gram-negative bacteremia Is this a current diagnosis for this admission?: Yes Plan: She continues on antibiotics per infectious disease recommendations. Her stop date tentatively is July 30. (2) UTI (urinary tract infection) Qualifiers: Urinary tract infection type: acute cystitis Hematuria presence: without hematuria Qualified Code(s): N30.00 - Acute cystitis without hematuria Is this a current diagnosis for this admission?: Yes Plan: Resolved (3) Hypokalemia Is this a current diagnosis for this admission?: Yes Plan: Resolved (4) IV drug abuse Is this a current diagnosis for this admission?: Yes Plan: She is having to stay here to finish her antibiotics. This is the second time this year she is had endocarditis. (5) Endocarditis Qualifiers: Endocarditis type: infective Infective endocarditis organism: bacterial Chronicity: acute Qualified Code(s): I33.0 - Acute and subacute infective endocarditis Is this a current diagnosis for this admission?: Yes Plan: SANJU on 07/09/19 was positive for an 8 mm aortic valve vegetation. Treatment is as noted above. We will follow-up with infectious disease and cardiology regarding whether or not the issue to be any revision to her treatment plan since this SANJU. 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 As per previous physicians note her residential life director at at [place] is aware of this admission. Presented to ED with dull retrosternal chest pain which has been present since valve replacement. Was a started started on IV vancomycin by Dr. Bowen hospitalist at [facility]. 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 [facility] on regional diversion at the admission time and was admitted here at [facility]. 05/21/2019. TTE LVEF 60%. No thrombus or vegetations noted. Severe tricuspid regurgitation. RSVP 48 to 53 mmHg.05/27/2019 Started on empiric broad-spectrum IV antibiotics. PICC line placed on 05/22/2018 on the left basilic vein. PICC line removed 06/14/2019 as per ID recommendation. Please refer to note. Tip was cultured which came back negative. Multiple positive blood cultures for pseudomonas aeruginosa. Last negative blood culture 05/31/2019 Last negative blood culture 05/31/2019. Day 23 of 56 days. Expected completion date 07/30/2019. Day 25 IV cefepime. Day 13 Ciprofloxacin 750 mg p.o. twice daily. Day 31 IV antibiotics. Received 10 days of IV levofloxacin. Switch to ciprofloxacin IV as per ID recommendation. I have been informed that [facility] will be able to do SANJU starting early June. Patient has stable and receiving IV antibiotics SANJU can wait until early June if not will call [facility] again for transfer for SANJU. 06/09/2019. Infectious disease consulted. Recommendations noted. Please refer to note. Unfortunately patient has a drug abuse and could not be sent home on IV antibiotics. 06/24/2019-patient has endocarditis not a candidate to go home with an IV antibiotic therapy. Patient may need a SANJU this week. pt is presently on IV cefepime. 06/25/2019-patient has history of endocarditis secondary to percent 10 to use of IV drug abuse. Admitted with fever and chills. Blood cultures came back positive for pseudomonas aeruginosa latest blood cultures are negative. Patient is presently on cefepime and p.o. ciprofloxacin. Plan is to arrange for SANJU after 01 July at this hospital. Last night patient has no fever but Reiger's and chills. To closely monitor her medical condition plan is to move her to [facility] today. 06/26/2019-unfortunately the SANJU service is not available yet. The patient will continue her antibiotic therapy. She will need 6 weeks from the first set of blood cultures that were no growth. 06/27/2019-no changes to the treatment plan. 06/28/2019-she is complaining of plantar fasciitis. Achilles tendons are nontender and appear intact. Will monitor while on quinolone therapy. 06/29/2019-no change in therapy at this time. Expected end date July 30. 07/02/2019-patient is admitted with endocarditis now the plan is to arrange for SANJU after 09 July here at [place]. In the meantime plan is to continue IV antibiotic therapy. Sedated 32 of IV antibiotic therapy patient is presently on IV cefepime and Cipro floxacillin 750 mg p.o. twice a day. 07/03/2019-patient is scheduled for SANJU after July 10. Presently on IV cefepime and p.o. Cipro floxacillin as per ID recommendations. She is going to complete the antibiotic therapy on July 30. 07/04/2019-patient admitted with endocarditis on IV cefepime and p.o. Cipro floxacillin. Plan to arrange for SANJU next week. 07/05/2019-patient is on IV cefepime, p.o. Cipro floxacillin and antibiotic course will be finished on July 30. Possible SANJU next week. 07/06/2019-patient is presently on IV cefepime, p.o. Cipro floxacillin for endocarditis. Plan to have a SANJU next week. Plan is to continue IV antibiotic therapy until #60. 07/07/2019-patient is presently on IV cefepime and p.o. Cipro floxacillin for endocarditis patient may go for a SANJU this week 07/08/2019-patient is presently on IV cefepime and Cipro floxacillin for endocarditis request for SANJU placed for tomorrow. 07/09/2019-patient has a SANJU done this morning Dr. Miguel Ángel watson called me to discuss the findings he thinks patient might have aortic valve vegetation. Plan is to continue the IV antibiotics as per ID recommendations. 07/10/2019-patient is going to receive IV cefepime and p.o. Cipro floxacillin for endocarditis. SANJU was done found to have a vegetation in the right aortic wall. 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 Presented to ED with dull retrosternal chest pain which has been present since valve replacement. Was a started started on IV vancomycin by Dr. Bowen hospitalist at [facility]. 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 [facility] on regional diversion at the admission time and was admitted here at [facility]. 05/21/2019. TTE LVEF 60%. No thrombus or vegetations noted. Severe tricuspid regurgitation. RSVP 48 to 53 mmHg.05/27/2019 Started on empiric broad-spectrum IV antibiotics. PICC line placed on 05/22/2018 on the left basilic vein. PICC line removed on 06/14/2019 as per ID recommendation. PICC line tip sent to culture. Multiple positive blood cultures for pseudomonas aeruginosa. Last negative blood culture 05/31/2019. Plan as per #1 06/24/2019-blood cultures came back positive for Pseudomonas aeruginosa on 05 29. Latest blood cultures are negative. As per ID recommendations PICC line was removed on . As listed above latest cultures are negative. Plan is to continue the present management. 06/25/2019-blood cultures from 05/29/2019 came back positive for Pseudomonas aeruginosa as per ID recommendations patient is on p.o. Cipro floxacillin and IV cephapirin. Waiting for a SANJU procedure after 01 July. Cultures are negative. Latest 06/26/2019-multiple repeated blood cultures are negative. Continue current treatment regimen. 06/29/2019-as above 07/02/2019-latest blood cultures from 06/25/2019 are negative. 07/04/2019-latest blood cultures are negative. Patient has endocarditis. History of IV drug abuse. SANJU is scheduled for next week. Plan is to continue IV cefepime and p.o. Cipro floxacillin. 07/05/2019-latest blood cultures are negative from 06/25 2019. She had a history of IV drug abuse admitted for endocarditis. Possible SANJU next week. Plan is to continue cefepime and p.o. ciprofloxacin. 07/06/2019-latest blood cultures are negative. Prior blood cultures are positive for Pseudomonas aeruginosa and patient getting treatment for endocar ditis. For possible SANJU next week. Plan is to continue antibiotic therapy until July 30. 07/07/2019-initial cultures came back positive for Pseudomonas aeruginosa and latest blood cultures are negative. Patient is receiving IV cephapirin and p.o. Cipro plan is to arrange for a SANJU on Sunday.\ 07/08/2019-initial blood cultures are positive for pseudomonas aeruginosa and follow-up blood cultures are negative. Patient is scheduled for a SANJU tomorrow and to continue IV cefepime and p.o. Cipro floxacillin. 07/09/2019-blood cultures are positive for pseudomonas aeruginosa initially on t he repeat blood cultures came back negative. Presently on IV cefepime and p.o. Cipro floxacillin. SANJU shows aortic valve vegetation. Plan is to continue the antibiotic therapy. 10/10/2018-latest blood cultures are negative. 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 Plan is to continue the antibiotic therapy until July 30. (3) IV drug abuse Is this a current diagnosis for this admission?: Yes Plan: Persistent IV drug abuse. Unfortunately patient seems to be abusing drugs while in the hospital. At times patient seems to be too sleepy. UDS on 06/08/2019 for back positive for opiates. Which was confirmed as morphine. Only on Subutex and tramadol in the hospital. Patient was advised on abstinence from recreational drug abuse. Currently on on Subutex since 05/27/2019 and tramadol. Was encouraged to rehab admission one day before discharge. 06/24/2019-patient has history of IV drug abuse. Counseling was provided today. 06/26/2019-continue Suboxone 06/29/2019-suspected self injection last night. Patient reports tachycardia was from using vape. Had a long discussion about compliance with hospital rules and treatment regimen. 07/02/2019-no complaints of any pains today. She is receiving Subutex and tramadol in the hospital. (4) Abdominal pain Qualifiers: Abdominal location: generalized Qualified Code(s): R10.84 - Generalized abdominal pain Is this a current diagnosis for this admission?: Yes Plan: Resolved. CT abdomen pelvis 06/06/2019 found no acute findings except for severe constipation. History of cholecystectomy. History of hepatitis C. History of hepatic steatosis. Lipase WNL. Continue beta-blockers and supportive measures. Continue bowel regimen. Encourage ambulation and high-fiber diet. 06/24/2019-patient came with complaints of abdominal pain. Which was resolved. Lipase levels are within normal limits. 06/26/2019-the patient does have history of hepatitis C. Since the rapid response 2 nights ago the patient exhibits increased LFTs. She does have a history of hepatitis C. I will recheck the liver enzymes and if they continue to increase I will obtain imaging of the abdomen. 06/27/2019-we discussed the elevated liver enzymes. She cannot remember when her last evaluation for hepatitis C was. I will check a hep C RNA level. We will continue to monitor the chemistries. 06/28/2019-liver enzymes are slowly improving. Unsure of the spike. Could be related to long-term antibiotics. We will continue to monitor. 07/02/19-patient has history of cholecystectomy, history of hepatitis C, history of hepatic steatosis lipase levels are within normal limits recently no complaints of abdominal pains. (5) Anemia Qualifiers: Anemia type: iron deficiency Iron deficiency anemia type: unspecified iron deficiency Qualified Code(s): D50.9 - Iron deficiency anemia, unspecified Is this a current diagnosis for this admission?: Yes Plan: Microcytic. Likely combination of anemia of chronic disease and iron deficiency anemia. Denies any easy bleeding, nosebleeds, hematemesis, hemoptysis, hematochezia, vaginal bleeding or melena. 05/30/2019. Iron panel. Serum iron 18.8, TIBC 270, saturation 7%, ferritin 213, folate 5.53, B12 folate 306, 06/08/2019. Status post 2 PRBC transfusion. Daily H&H, monitor for bleeding, supportive transfusions, ferrous sulfate. 06/24/2019-patient received 2 units of PRBC. During the hospital stay. Latest hemoglobin is 11.4. Stable. 06/25/2019-patient received 2 units of PRBC during the hospital stay latest hemoglobin is 11.4 plan is to closely trend the hemoglobin on daily basis. 06/26/2019-continue to monitor hemoglobin. 07/02/2019-patient's low latest hemoglobin is 10.3 stable. #6 ) plantar fasciitis-the patient developed tenderness under the arch of the left foot. I had physical therapy see the patient. They believe it is plantar fasciitis. She is on quinolone therapy long-term. This can have an adverse effect on tendons. We will continue to monitor. Physical therapy provided exercise plan for the patient. 06/29/2019-patient reports increased pain. I have added IV Toradol as an anti-i nflammatory and physical therapy is working with her. 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 This puts the stop date at approximately July 14. She should still have a SANJU once that service is finally organized and offered. Anemia-continue iron supplement Drug abuse-continue Subutex Neuropathy-continue Neurontin Plantar fasciitis-she is working with physical therapy. Toradol is available. Consider wrapping her foot for support. Pain management-avoid narcotics completely 7.hyperkalemia Potassium today is 5.5 patient refused to take Kayexalate. to Recheck the potassium levels later on this evening. 07/04/2019-patient's potassium today 6.6 to Kayexalate and dextrose along with insulin IV to bring the potassium down repeat the potassium levels this afternoon. 07/05/2019-patient serum potassium is 5.5 today came down from 6.6 she was given Kayexalate along with the D50 1 amp and 8 units of regular insulin IV plan is to repeat the dose of 1 amp D50 and 6 units of regular insulin IV. Patient refusing Kayexalate. 07/06/2019-serum potassium is persistently high to start her on low potassium diet from today. 07/07/2019-latest serum potassium levels is 5.2 to recheck the labs today. Patient is on low potassium diet. 07/08/2019-patient serum potassium today is 4.9 hyperkalemia is resolved. - Time Time Spent with patient: 15-24 minutes
[2019-07-19] MEDS: ATORVASTATIN CALCIUM 40 MG TABLET PO SCH (21:22)
[2019-07-19] MEDS: QUETIAPINE FUMARATE 25 MG TABLET PO SCH (21:22)
[2019-07-20] MEDS: CEFEPIME 2 GM/D5W RTU 2 GM/50 ML RTUPB IV SCH ×3 (02:05→17:21)
[2019-07-20] MEDS: TIZANIDINE HCL 4 MG TABLET PO PRN ×3 (03:12→16:42)
[2019-07-20] MEDS: GABAPENTIN 300 MG CAPSULE PO SCH ×3 (05:37→21:42)
[2019-07-20] MEDS: PANTOPRAZOLE SODIUM 40 MG TABLET.DR PO SCH (05:37)
[2019-07-20] MEDS: BUPRENORPHINE HCL 2 MG SUBLINGUAL TABLET SL SCH ×2 (09:11→21:42)
[2019-07-20] MEDS: FERROUS SULFATE 325 MG TABLET PO SCH (09:11)
[2019-07-20] MEDS: CIPROFLOXACIN HCL 750 MG TABLET PO SCH ×2 (09:11→21:46)
[2019-07-20] MEDS: MAGNESIUM OXIDE 400 MG TABLET PO SCH ×2 (09:12→17:21)
[2019-07-20] MEDS: HEPARIN SOD (PORCINE) 5,000 UNIT/ML 1 ML VIAL SUBCUT SCH ×2 (09:13→21:47)
[2019-07-20] MEDS: NORMAL SALINE 10 ML SDV (SCHEDULED) IV SCH ×2 (09:15→21:42)
--- NOTE | 2019-07-20 14:41 | PDOC PROGRESS REPORT ---
Subjective Progress Note for:: 07/20/19 Subjective:: No adverse events overnight. No new complaints. Vital signs been stable. Eating and drinking without difficulty. Reason For Visit: IV DRUG ABUSE,SEPSIS,ENDOCARDITIS Physical Exam Vital Signs: Temp Pulse Resp BP Pulse Ox 98.3 F 87 17 103/61 99 07/20/19 09:00 07/20/19 09:00 07/20/19 09:00 07/20/19 09:00 07/20/19 09:00 Intake & Output 07/19/19 07/20/19 07/21/19 06:59 06:59 06:59 Intake Total 2020 800 490 Balance 2020 800 490 Weight 96.8 kg 94.7 kg General appearance: PRESENT: no acute distress, cooperative, disheveled Respiratory exam: PRESENT: clear to auscultation sandrita, symmetrical, unlabored. ABSENT: accessory muscle use, chest wall tenderness, decreased breath sounds, prolonged expiratory phase, rales, rhonchi, tachypnea, wheezes Cardiovascular exam: PRESENT: RRR, +S1, +S2, audible systolic murmur Pulses: PRESENT: normal carotid pulses Vascular exam: PRESENT: normal capillary refill GI/Abdominal exam: PRESENT: normal bowel sounds, soft. ABSENT: distended, guarding, rebound, tenderness Extremities exam: ABSENT: clubbing, pedal edema Musculoskeletal exam: PRESENT: normal inspection. ABSENT: deformity Neurological exam: PRESENT: alert, awake, oriented to person, oriented to place, oriented to situation Psychiatric exam: PRESENT: appropriate affect, normal mood Skin exam: PRESENT: dry, warm Results Laboratory Results: 07/07/19 10:45 07/07/19 10:45 05/21/19 05/22/19 05/22/19 23:07 02:06 11:00 Creatine Kinase CK-MB (CK-2) Troponin I 0.098 0.098 0.070 NT-Pro-B Natriuret Pep 05/22/19 05/22/19 05/22/19 14:00 14:35 20:04 Creatine Kinase CK-MB (CK-2) Troponin I Cancelled 0.060 0.037 NT-Pro-B Natriuret Pep 05/28/19 05/28/19 06/02/19 00:15 00:15 00:20 Creatine Kinase < 20 L < 20 L CK-MB (CK-2) 0.49 Troponin I 0.077 NT-Pro-B Natriuret Pep 06/02/19 06/02/19 06/02/19 00:20 06:15 06:15 Creatine Kinase < 20 L CK-MB (CK-2) 1.53 1.39 Troponin I 0.194 0.171 NT-Pro-B Natriuret Pep 06/02/19 06/02/19 06/28/19 13:30 13:30 03:40 Creatine Kinase < 20 L 26 L CK-MB (CK-2) 1.68 Troponin I 0.175 NT-Pro-B Natriuret Pep 4000 H Impressions: Chest X-Ray 05/21/19 23:04 IMPRESSION: 1. No acute pulmonary findings. 2. Previous sternotomy Abdomen Ultrasound 05/28/19 00:00 IMPRESSION: Mild splenomegaly. No acute findings otherwise. Abdomen/Pelvis CT 06/06/19 00:00 IMPRESSION: 1. Gastric distention and debris. Ileus. Constipation. 2. Normal appendix. No acute abdominopelvic abnormality. Guidance Fluoroscopy 06/23/19 00:00 IMPRESSION: SUCCESSFUL PLACEMENT OF A 5 FR DUAL LUMEN 38 CM PICC IN THE LEFT BASILIC VEIN. Interventional Vascular Procedure 06/23/19 00:00 IMPRESSION: SUCCESSFUL PLACEMENT OF A 5 FR DUAL LUMEN 38 CM PICC IN THE LEFT BASILIC VEIN. PICC Line Insertion 06/23/19 00:00 IMPRESSION: SUCCESSFUL PLACEMENT OF A 5 FR DUAL LUMEN 38 CM PICC IN THE LEFT BASILIC VEIN. Foot X-Ray 06/29/19 00:00 IMPRESSION: NEGATIVE STUDY OF THE LEFT FOOT. NO EXPLANATION FOR PAIN. Assessment and Plan - Diagnosis (1) Gram-negative bacteremia Is this a current diagnosis for this admission?: Yes Plan: She continues on antibiotics per infectious disease recommendations. Her stop date tentatively is July 30. (2) UTI (urinary tract infection) Qualifiers: Urinary tract infection type: acute cystitis Hematuria presence: without hematuria Qualified Code(s): N30.00 - Acute cystitis without hematuria Is this a current diagnosis for this admission?: Yes Plan: Resolved (3) Hypokalemia Is this a current diagnosis for this admission?: Yes Plan: Resolved (4) IV drug abuse Is this a current diagnosis for this admission?: Yes Plan: She is having to stay here to finish her antibiotics. This is the second time this year she is had endocarditis. (5) Endocarditis Qualifiers: Endocarditis type: infective Infective endocarditis organism: bacterial Chronicity: acute Qualified Code(s): I33.0 - Acute and subacute infective e ndocarditis Is this a current diagnosis for this admission?: Yes Plan: SANJU on 07/09/19 was positive for an 8 mm aortic valve vegetation. Treatment is as noted above. We will follow-up with infectious disease and cardiology regarding whether or not the issue to be any revision to her treatment plan since this SANJU. 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 Presented to ED with dull retrosternal chest pain which has been present since valve replacement. Was a started started on IV vancomycin by Dr. Bowen hospitalist at [facility]. 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 [facility] on regional diversion at the admission time and was admitted here at [facility]. 05/21/2019. TTE LVEF 60%. No thrombus or vegetations noted. Severe tricuspid regurgitation. RSVP 48 to 53 mmHg.05/27/2019 Started on empiric broad-spectrum IV antibiotics. PICC line placed on 05/22/2018 on the left basilic vein. PICC line removed 06/14/2019 as per ID recommendation. Please refer to note. Tip was cultured which came back negative. Multiple positive blood cultures for pseudomonas aeruginosa. Last negative blood culture 05/31/2019 Last negative blood culture 05/31/2019. Day 23 of 56 days. Expected completion date 07/30/2019. Day 25 IV cefepime. Day 13 Ciprofloxacin 750 mg p.o. twice daily. Day 31 IV antibiotics. Received 10 days of IV levofloxacin. Switch to ciprofloxacin IV as per ID recommendation. I have been informed that [facility] will be able to do SANJU starting early June. Patient has stable and receiving IV antibiotics SANJU can wait until early June if not will call [facility] again for transfer for SANJU. 06/09/2019. Infectious disease consulted. Recommendations noted. Please refer to note. Unfortunately patient has a drug abuse and could not be sent home on IV antibiotics. 06/24/2019-patient has endocarditis not a candidate to go home with an IV antibiotic therapy. Patient may need a SANJU this week. pt is presently on IV cefepime. 06/25/2019-patient has history of endocarditis secondary to percent 10 to use of IV drug abuse. Admitted with fever and chills. Blood cultures came back positive for pseudomonas aeruginosa latest blood cultures are negative. Patient is presently on cefepime and p.o. ciprofloxacin. Plan is to arrange for SANJU after 01 July at this hospital. Last night patient has no fever but Reiger's and chills. To closely monitor her medical condition plan is to move her to [facility] today. 06/26/2019-unfortunately the SANJU service is not available yet. The patient will continue her antibiotic therapy. She will need 6 weeks from the first set of blood cultures that were no growth. 06/27/2019-no changes to the treatment plan. 06/28/2019-she is complaining of plantar fasciitis. Achilles tendons are nontender and appear intact. Will monitor while on quinolone therapy. 06/29/2019-no change in therapy at this time. Expected end date July 30. 07/02/2019-patient is admitted with endocarditis now the plan is to arrange for SANJU after 09 July here at [place]. In the meantime plan is to continue IV antibiotic therapy. Sedated 32 of IV antibiotic therapy patient is presently on IV cefepime and Cipro floxacillin 750 mg p.o. twice a day. 07/03/2019-patient is scheduled for SANJU after July 10. Presently on IV cefepime and p.o. Cipro floxacillin as per ID recommendations. She is going to complete the antibiotic therapy on July 30. 07/04/2019-patient admitted with endocarditis on IV cefepime and p.o. Cipro floxacillin. Plan to arrange for SANJU next week. 07/05/2019-patient is on IV cefepime, p.o. Cipro floxacillin and antibiotic course will be finished on July 30. Possible SANJU next week. 07/06/2019-patient is presently on IV cefepime, p.o. Cipro floxacillin for endocarditis. Plan to have a SANJU next week. Plan is to continue IV antibiotic therapy until #60. 07/07/2019-patient is presently on IV cefepime and p.o. Cipro floxacillin for endocarditis patient may go for a SANJU this week 07/08/2019-patient is presently on IV cefepime and Cipro floxacillin for endocarditis request for SANJU placed for tomorrow. 07/09/2019-patient has a SANJU done this morning Dr. Miguel Ángel watson called me to discuss the findings he thinks patient might have aortic valve vegetation. Plan is to continue the IV antibiotics as per ID recommendations. 07/10/2019-patient is going to receive IV cefepime and p.o. Cipro floxacillin for endocarditis. SANJU was done found to have a vegetation in the right aortic wall. 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 Presented to ED with dull retrosternal chest pain which has been present since valve replacement. Was a started started on IV vancomycin by Dr. Bowen hospitalist at [facility]. 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 [facility] on regional diversion at the admission time and was admitted here at [facility]. 05/21/2019. TTE LVEF 60%. No thrombus or vegetations noted. Severe tricuspid regurgitation. RSVP 48 to 53 mmHg.05/27/2019 Started on empiric broad-spectrum IV antibiotics. PICC line placed on 05/22/2018 on the left basilic vein. PICC line removed on 06/14/2019 as per ID recommendation. PICC line tip sent to culture. Multiple positive blood cultures for pseudomonas aeruginosa. Last negative blood culture 05/31/2019. Plan as per #1 06/24/2019-blood cultures came back positive for Pseudomonas aeruginosa on 05 29. Latest blood cultures are negative. As per ID recommendations PICC line was removed on . As listed above latest cultures are negative. Plan is to continue the present management. 06/25/2019-blood cultures from 05/29/2019 came back positive for Pseudomonas aeruginosa as per ID recommendations patient is on p.o. Cipro floxacillin and IV cephapirin. Waiting for a SANJU procedure after 01 July. Cultures are negative. Latest 06/26/2019-multiple repeated blood cultures are negative. Continue current treatment regimen. 06/29/2019-as above 07/02/2019-latest blood cultures from 06/25/2019 are negative. 07/04/2019-latest blood cultures are negative. Patient has endocarditis. History of IV drug abuse. SANJU is scheduled for next week. Plan is to continue IV cefepime and p.o. Cipro floxacillin. 07/05/2019-latest blood cultures are negative from 06/25 2019. She had a history of IV drug abuse admitted for endocarditis. Possible SANJU next week. Plan is to continue cefepime and p.o. ciprofloxacin. 07/06/2019-latest blood cultures are negative. Prior blood cultures are positive for Pseudomonas aeruginosa and patient getting treatment for endocardi tis. For possible SANJU next week. Plan is to continue antibiotic therapy until July 30. 07/07/2019-initial cultures came back positive for Pseudomonas aeruginosa and latest blood cultures are negative. Patient is receiving IV cephapirin and p.o. Cipro plan is to arrange for a SANJU on Sunday.\ 07/08/2019-initial blood cultures are positive for pseudomonas aeruginosa and follow-up blood cultures are negative. Patient is scheduled for a ASNJU tomorrow and to continue IV cefepime and p.o. Cipro floxacillin. 07/09/2019-blood cultures are positive for pseudomonas aeruginosa initially on the repeat blood cultures came back negative. Presently on IV cefepime and p.o. Cipro floxacillin. SANJU shows aortic valve vegetation. Plan is to continue the antibiotic therapy. 10/10/2018-latest blood cultures are negative. 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 Plan is to continue the antibiotic therapy until July 30. (3) IV drug abuse Is this a current diagnosis for this admission?: Yes Plan: Persistent IV drug abuse. Unfortunately patient seems to be abusing drugs while in the hospital. At times patient seems to be too sleepy. UDS on 06/08/2019 for back positive for opiates. Which was confirmed as morphine. Only on Subutex and tramadol in the hospital. Patient was advised on abstinence from recreational drug abuse. Currently on on Subutex since 05/27/2019 and tramadol. Was encouraged to rehab admission one day before discharge. 06/24/2019-patient has history of IV drug abuse. Counseling was provided today. 06/26/2019-continue Suboxone 06/29/2019-suspected self injection last night. Patient reports tachycardia was from using vape. Had a long discussion about compliance with hospital rules and treatment regimen. 07/02/2019-no complaints of any pains today. She is receiving Subutex and tramadol in the hospital. (4) Abdominal pain Qualifiers: Abdominal location: generalized Qualified Code(s): R10.84 - Generalized abdominal pain Is this a current diagnosis for this admission?: Yes Plan: Resolved. CT abdomen pelvis 06/06/2019 found no acute findings except for severe constipation. History of cholecystectomy. History of hepatitis C. History of hepatic steatosis. Lipase WNL. Continue beta-blockers and supportive measures. Continue bowel regimen. Encourage ambulation and high-fiber diet. 06/24/2019-patient came with complaints of abdominal pain. Which was resolved. Lipase levels are within normal limits. 06/26/2019-the patient does have history of hepatitis C. Since the rapid response 2 nights ago the patient exhibits increased LFTs. She does have a history of hepatitis C. I will recheck the liver enzymes and if they continue to increase I will obtain imaging of the abdomen. 06/27/2019-we discussed the elevated liver enzymes. She cannot remember when her last evaluation for hepatitis C was. I will check a hep C RNA level. We will continue to monitor the chemistries. 06/28/2019-liver enzymes are slowly improving. Unsure of the spike. Could be related to long-term antibiotics. We will continue to monitor. 07/02/19-patient has history of cholecystectomy, history of hepatitis C, history of hepatic steatosis lipase levels are within normal limits recently no complaints of abdominal pains. (5) Anemia Qualifiers: Anemia type: iron deficiency Iron deficiency anemia type: unspecified iron deficiency Qualified Code(s): D50.9 - Iron deficiency anemia, unspecified Is this a current diagnosis for this admission?: Yes Plan: Microcytic. Likely combination of anemia of chronic disease and iron deficiency anemia. Denies any easy bleeding, nosebleeds, hematemesis, hemoptysis, hematochezia, vaginal bleeding or melena. 05/30/2019. Iron panel. Serum iron 18.8, TIBC 270, saturation 7%, ferritin 213, folate 5.53, B12 folate 306, 06/08/2019. Status post 2 PRBC transfusion. Daily H&H, monitor for bleeding, supportive transfusions, ferrous sulfate. 06/24/2019-patient received 2 units of PRBC. During the hospital stay. Latest hemoglobin is 11.4. Stable. 06/25/2019-patient received 2 units of PRBC during the hospital stay latest hemoglobin is 11.4 plan is to closely trend the hemoglobin on daily basis. 06/26/2019-continue to monitor hemoglobin. 07/02/2019-patient's low latest hemoglobin is 10.3 stable. #6 ) plantar fasciitis-the patient developed tenderness under the arch of the left foot. I had physical therapy see the patient. They believe it is plantar fasciitis. She is on quinolone therapy long-term. This can have an adverse effect on tendons. We will continue to monitor. Physical therapy provided exercise plan for the patient. 06/29/2019-patient reports increased pain. I have added IV Toradol as an anti-inflammatory and physical therapy is working with her. 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 This puts the stop date at approximately July 14. She should still have a SANJU once that service is finally organized and offered. Anemia-continue iron supplement Drug abuse-continue Subutex Neuropathy-continue Neurontin Plantar fasciitis-she is working with physical therapy. Toradol is available. Consider wrapping her foot for support. Pain management-avoid narcotics completely 7.hyperkalemia Potassium today is 5.5 patient refused to take Kayexalate. to Recheck the potassium levels later on this evening. 07/04/2019-patient's potassium today 6.6 to Kayexalate and dextrose along with insulin IV to bring the potassium down repeat the potassium levels this afternoon. 07/05/2019-patient serum potassium is 5.5 today came down from 6.6 she was given Kayexalate along with the D50 1 amp and 8 units of regular insulin IV plan is to repeat the dose of 1 amp D50 and 6 units of regular insulin IV. Patient refusing Kayexalate. 07/06/2019-serum potassium is persistently high to start her on low potassium diet from today. 07/07/2019-latest serum potassium levels is 5.2 to recheck the labs today. Patient is on low potassium diet. 07/08/2019-patient serum potassium today is 4.9 hyperkalemia is resolved. - Time Time Spent with patient: 15-24 minutes
[2019-07-20] MEDS ORDERED: IBUPROFEN 800 MG TABLET PO ONE (17:30)
[2019-07-20] MEDS: ATORVASTATIN CALCIUM 40 MG TABLET PO SCH (21:42)
[2019-07-20] MEDS: QUETIAPINE FUMARATE 25 MG TABLET PO SCH (21:42)
[2019-07-21] MEDS: CEFEPIME 2 GM/D5W RTU 2 GM/50 ML RTUPB IV SCH ×2 (01:53→10:21)
[2019-07-21] MEDS: TIZANIDINE HCL 4 MG TABLET PO PRN ×2 (01:56→08:02)
[2019-07-21] MEDS: PANTOPRAZOLE SODIUM 40 MG TABLET.DR PO SCH (05:14)
[2019-07-21] MEDS: GABAPENTIN 300 MG CAPSULE PO SCH ×2 (05:14→14:15)
[2019-07-21] MEDS: FERROUS SULFATE 325 MG TABLET PO SCH (08:01)
[2019-07-21 09:14] VITALS: BP 118/65
[2019-07-21] MEDS: CIPROFLOXACIN HCL 750 MG TABLET PO SCH (10:21)
[2019-07-21] MEDS: MAGNESIUM OXIDE 400 MG TABLET PO SCH (10:21)
[2019-07-21] MEDS: BUPRENORPHINE HCL 2 MG SUBLINGUAL TABLET SL SCH (10:21)
[2019-07-21] MEDS: HEPARIN SOD (PORCINE) 5,000 UNIT/ML 1 ML VIAL SUBCUT SCH (10:22)
[2019-07-21] MEDS: NORMAL SALINE 10 ML SDV (SCHEDULED) IV SCH (10:25)
--- NOTE | 2019-07-21 13:07 | PDOC TRANSFER SUMMARY ---
General Admission Date/PCP: 05/22/19 03:57 Admission Date: 05/20/19 Transfer Date: 07/21/19 Accepting Facility: [facility] Resuscitation Status: Full Code - Transfer Diagnosis (1) Gram-negative bacteremia Is this a current diagnosis for this admission?: Yes Diagnosis Summary: Cultures proved to be a pansensitive pseudomonas aeruginosa, infectious disease recommended cefepime and ciprofloxacin with a tentative stop date of July 30, 2019. (2) UTI (urinary tract infection) Is this a current diagnosis for this admission?: Yes Diagnosis Summary: Found incidentally, now resolved. (3) Hypokalemia Is this a current diagnosis for this admission?: Yes Diagnosis Summary: Treated with IV potassium supplements, now resolved (4) IV drug abuse Is this a current diagnosis for this admission?: Yes Diagnosis Summary: Because of her endocarditis, on Subutex. (5) Endocarditis Is this a current diagnosis for this admission?: Yes Diagnosis Summary: Secondary to IV drug use, organism was a pansensitive pseudomonas aeruginosa, on cefepime and ciprofloxacin until July 30, 2019 per infectious disease recommendations. This is the second time this year she has had this, the first time being in September of this year when she had an aortic valve replacement at [facility] with a bioprosthetic valve. Repeat SANJU was done at approximately 6 weeks after initiation of IV antibiotics and it showed she has a persistent 8 mm vegetation on the bioprosthetic valve with normal valve function. - Transfer Medications Home Medications: Atorvastatin Calcium [Lipitor 40 mg Tablet] 40 mg PO QHS 05/22/19 Buprenorphine HCl/Naloxone HCl [Suboxone 8 mg-2 mg Sl Film] 0.5 film SL QPM 05/22/19 Buprenorphine HCl/Naloxone HCl [Suboxone 8 mg-2 mg Sl Film] 1 film SL DAILY 05/22/19 Duloxetine HCl [Cymbalta 20 mg Capsule.dr] 20 mg PO DAILY 05/22/19 Furosemide [Lasix 40 mg Tablet] 40 mg PO DAILY 05/22/19 Gabapentin [Neurontin 300 mg Capsule] 300 mg PO BID 05/22/19 Metoprolol Succinate [Toprol XL 100 mg Tablet] 100 mg PO DAILY 05/22/19 Transfer Medications: Current Medications Acetaminophen (Tylenol 325 Mg Tablet) 650 mg PO Q4HP PRN PRN Reason: FOR BACK PAIN Stop: 08/07/19 09:33 Last Admin: 07/16/19 23:29 Dose: 650 mg Documented by: Atorvastatin Calcium (Lipitor 40 Mg Tablet) 40 mg PO QHS [facility] Stop: 07/28/19 21:59 Last Admin: 07/20/19 21:42 Dose: 40 mg Documented by: Buprenorphine HCl (Subutex 2 Mg Sl Tablet) 8 mg SL DAILY [facility] Stop: 07/24/19 09:59 Last Admin: 07/21/19 10:21 Dose: 8 mg Documented by: Buprenorphine HCl (Subutex 2 Mg Sl Tablet) 4 mg SL QHS [facility] Stop: 07/24/19 21:59 Last Admin: 07/20/19 21:42 Dose: 4 mg Documented by: Ciprofloxacin (Cipro 750 Mg Tablet) 750 mg PO Q12 [facility] Stop: 07/30/19 09:59 Last Admin: 07/21/19 10:21 Dose: 750 mg Documented by: Dextrose (Dextrose Inj 50% Syringe (25 Gm/50 Ml)) 12.5 gm IV PRN PRN; Protocol PRN Reason: FOR BG 50-69 IN ALERT PATIENT Stop: 08/07/19 13:44 Dextrose (Dextrose Inj 50% Syringe (25 Gm/50 Ml)) 25 gm IV PRN PRN; Protocol PRN Reason: See Label Comments Stop: 08/07/19 13:44 Docusate Sodium (Colace 100 Mg Capsule) 200 mg PO BIDP PRN PRN Reason: constipation Stop: 07/23/19 10:23 Ferrous Sulfate (Feosol 325 Mg Tablet) 325 mg PO QAM [facility] Stop: 07/23/19 11:59 Last Admin: 07/21/19 08:01 Dose: 325 mg Documented by: Gabapentin (Neurontin 300 Mg Capsule) 300 mg PO Q8 [facility] Stop: 08/07/19 13:59 Last Admin: 07/21/19 05:14 Dose: Not Given Documented by: Glucagon (Glucagen Inj 1 Mg Vial) 1 mg SUBCUT PRN PRN; Protocol PRN Reason: Evaluate for BG < 70 Stop: 08/07/19 13:44 Glucose (Glutose 40% Gel 15 Gm Tube) 15 gm PO PRN PRN; Protocol PRN Reason: For BG 50-69 in Alert Patient Stop: 08/07/19 13:44 Glucose (Glutose 40% Gel 15 Gm Tube) 30 gm PO PRN PRN; Protocol PRN Reason: FOR BG < 50 IN ALERT PATIENT Stop: 08/07/19 13:44 Heparin Sodium (Porcine) (Heparin Flush 10 Unit/Ml 5 Ml Disp.Syrg) 30 unit IV Q12 [facility] Stop: 07/23/19 21:59 Last Admin: 07/21/19 10:25 Dose: 30 unit Documented by: Heparin Sodium (Porcine) (Heparin Flush 10 Unit/Ml 5 Ml Disp.Syrg) 30 unit IV .AFTER EACH USE PRN Stop: 07/23/19 11:29 Last Admin: 07/16/19 03:02 Dose: 30 unit Documented by: Heparin Sodium (Porcine) (Heparin Inj 5,000 Units/Ml 1 Ml Vial) 5,000 unit SUB CUT Q12 JEAN MARIE Stop: 07/25/19 07:59 Last Admin: 07/21/19 10:22 Dose: Not Given Documented by: Cefepime HCl (Maxipime Rtu 2 Gm-D5w 50 Ml Premix Bag) 2 gm in 50 mls @ 100 mls/hr IV Q8A JEAN MARIE Stop: 07/30/19 20:59 Last Infusion: 07/21/19 11:01 Dose: Infused Documented by: Magnesium Oxide (Mag-Ox 400 Mg Tablet) 800 mg PO BID JEAN MARIE Stop: 08/04/19 09:59 Last Admin: 07/21/19 10:21 Dose: 800 mg Documented by: Metoprolol Tartrate (Lopressor Inj/Pf 5 Mg/5 Ml Sdv) 10 mg IV Q6HP PRN PRN Reason: HR ABOVE 140 Stop: 07/28/19 19:04 Nicotine (Nicoderm 7 Mg/24 Hr Transdermal Patch) 1 each TD DAILYP PRN PRN Reason: WITHDRAWAL SYMPTOMS Stop: 07/29/19 14:03 Pantoprazole Sodium (Protonix [address] Tablet) 40 mg PO Q6AM JEAN MARIE Stop: 07/23/19 11:59 Last Admin: 07/21/19 05:14 Dose: Not Given Documented by: Quetiapine Fumarate (Seroquel 25 Mg Tablet) 25 mg PO QHS [facility] Stop: 07/30/19 21:59 Last Admin: 07/20/19 21:42 Dose: 25 mg Documented by: Sodium Chloride (Nacl 0.9% Inj/Pf 10 Ml Sdv) 10 ml IV Q12 JEAN MARIE Stop: 07/23/19 21:59 Last Admin: 07/21/19 10:25 Dose: 10 ml Documented by: Sodium Chloride (Nacl 0.9% Inj/Pf 10 Ml Sdv) 10 ml IV .AFTER EACH USE PRN Stop: 07/23/19 11:29 Last Admin: 07/04/19 22:17 Dose: 10 ml Documented by: Tizanidine HCl (Zanaflex 4 Mg Tablet) 2 mg PO QIDP PRN PRN Reason: MUSCLE SPASMS Stop: 08/07/19 09:32 Last Admin: 07/21/19 08:02 Dose: 2 mg Documented by: - Allergies Allergies/Adverse Reactions: No Known Allergies Allergy (Verified 03/27/19 15:22) - Diet/Activity Discharge Diet: Regular Discharge Activity: Activity As Tolerated Hospital Course Hospital Course: Per HPI: "HONEY GRESHAM is a 43 year old female with a past medical history of persistent IV drug use, endocarditis, status post aortic valve replacement September 2018 at [facility]. She presents with dull retrosternal chest pain which has been present since valve replacement has developed fever and some shortness of breath prompting evaluation emergency room where she is found to have sepsis with hypotension, tachycardia, leukocytosis of 19,000, hypo-natremia hypomagnesemia hypo-kalemia and thrombocytopenia. She started on IV vancomycin and Dr. Bowen hospitalist at [facility] is consulted. 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 Subsequent cultures did not grow. [facility] is currently on regional diversion and are subsequently unable to accept her for transfer. She is referred to the hospitalist for admission." Regarding the reference in the admitting physician's HPI about her being diagnosed with MSSA endocarditis in March 2019 and treated with 8 days of various antibiotics I cannot verify, but she did present here on March 27 and septic shock requiring pressor support and it was suspected that she at least had a recurrent bacteremia secondary to IV drug use and at that time she was transferred from the ER to [facility]. The blood cultures we obtained at that time were negative. She was admitted here and placed on broad-spectrum antibiotics on 05/20/2019. Her blood cultures grew out a pansensitive pseudomonas aeruginosa. Infectious disease consultation was obtained remotely from [facility] and recommended 6 weeks of treatment with cefepime and ciprofloxacin. It was recommended at that time to get a SANJU. We were having trouble getting that set up externally, because we did not have the capability here at that time. Initially the decision was made to treat empirically and then to follow-up with repeat blood cultures, but ultimately it was decided that the prudent thing to do was to go ahead and get a TTE to see if we could get the information we needed. The TTE was negative for vegetation, and so as soon as we were able we got a SANJU. The SANJU was performed on 07/09/2019. This was approximately 6 weeks after antibiotics were initiated. The SANJU showed that the bioprosthetic aortic valve had an 8 mm vegetation. Contact was made with Dr. March, a CT surgeon at [facility]. The case was discussed with him in detail. It was his opinion that the bioprosthetic aortic valve would not be sterilized with antibiotics alone. He recommended that the patient be transferred back to [facility] for consu ltations with infectious disease and cardiology, and ultimately with CT surgery. The admitting physician will be a Dr. Headley. Patient is hemodynamically stable and has been for quite some time. She has no ongoing acute medical issues other than the endocarditis for which she is receiving IV antibiotics. Physical Exam Vital Signs: Temp Pulse Resp BP Pulse Ox 98.3 F 81 17 118/65 100 07/21/19 08:27 07/21/19 08:27 07/21/19 08:27 07/21/19 08:27 07/21/19 08:27 Intake & Output 07/20/19 07/21/19 07/22/19 06:59 06:59 06:59 Intake Total 800 1560 50 Balance 800 1560 50 Weight 94.7 kg 98.1 kg General appearance: PRESENT: no acute distress, cooperative, disheveled Respiratory exam: PRESENT: clear to auscultation sandrita, symmetrical, unlabored. ABSENT: accessory muscle use, chest wall tenderness, decreased breath sounds, prolonged expiratory phase, rales, rhonchi, tachypnea, wheezes Cardiovascular exam: PRESENT: RRR, +S1, +S2, audible systolic murmur Pulses: PRESENT: normal carotid pulses Vascular exam: PRESENT: normal capillary refill GI/Abdominal exam: PRESENT: normal bowel sounds, soft. ABSENT: distended, guarding, rebound, tenderness Extremities exam: ABSENT: clubbing, pedal edema Musculoskeletal exam: PRESENT: normal inspection. ABSENT: deformity Neurological exam: PRESENT: alert, awake, oriented to person, oriented to place, oriented to situation Psychiatric exam: PRESENT: appropriate affect, normal mood Skin exam: PRESENT: dry, warm Results Laboratory Results: 07/07/19 10:45 07/07/19 10:45 05/21/19 05/22/19 05/22/19 23:07 02:06 11:00 Creatine Kinase CK-MB (CK-2) Troponin I 0.098 0.098 0.070 NT-Pro-B Natriuret Pep 05/22/19 05/22/19 05/22/19 14:00 14:35 20:04 Creatine Kinase CK-MB (CK-2) Troponin I Cancelled 0.060 0.037 NT-Pro-B Natriuret Pep 05/28/19 05/28/19 06/02/19 00:15 00:15 00:20 Creatine Kinase < 20 L < 20 L CK-MB (CK-2) 0.49 Troponin I 0.077 NT-Pro-B Natriuret Pep 06/02/19 06/02/19 06/02/19 00:20 06:15 06:15 Creatine Kinase < 20 L CK-MB (CK-2) 1.53 1.39 Troponin I 0.194 0.171 NT-Pro-B Natriuret Pep 06/02/19 06/02/19 06/28/19 13:30 13:30 03:40 Creatine Kinase < 20 L 26 L CK-MB (CK-2) 1.68 Troponin I 0.175 NT-Pro-B Natriuret Pep 4000 H Impressions: Chest X-Ray 05/21/19 23:04 IMPRESSION: 1. No acute pulmonary findings. 2. Previous sternotomy Abdomen Ultrasound 05/28/19 00:00 IMPRESSION: Mild splenomegaly. No acute findings otherwise. Abdomen/Pelvis CT 06/06/19 00:00 IMPRESSION: 1. Gastric distention and debris. Ileus. Constipation. 2. Normal appendix. No acute abdominopelvic abnormality. Guidance Fluoroscopy 06/23/19 00:00 IMPRESSION: SUCCESSFUL PLACEMENT OF A 5 FR DUAL LUMEN 38 CM PICC IN THE LEFT BASILIC VEIN. Interventional Vascular Procedure 06/23/19 00:00 IMPRESSION: SUCCESSFUL PLACEMENT OF A 5 FR DUAL LUMEN 38 CM PICC IN THE LEFT BASILIC VEIN. PICC Line Insertion 06/23/19 00:00 IMPRESSION: SUCCESSFUL PLACEMENT OF A 5 FR DUAL LUMEN 38 CM PICC IN THE LEFT BASILIC VEIN. Foot X-Ray 06/29/19 00:00 IMPRESSION: NEGATIVE STUDY OF THE LEFT FOOT. NO EXPLANATION FOR PAIN. Plan Discharge Plan: Transfer to [facility] when a bed becomes available Time Spent: Greater than 30 Minutes
== END 2019-07-21 17:20 | disposition short-term general hospital (02) | DRG 289 ==
LOC: ER 22:50 → EEVIPCON 05-22 03:57 → EH 05-22 03:57 → 5 05-22 05:00 → 3N 06-25 13:04 → 3S 07-05 17:44
PROVIDERS: ADMIT Internal Medicine; ATTEND Internal Medicine
PROC: 02HV33Z Insertion of Infusion Device into Superior Vena Cava, Percutaneous Approach (ICD-10-PCS; 2019-05-22)
PROC: B518ZZA Fluoroscopy of Superior Vena Cava, Guidance (ICD-10-PCS; 2019-05-22)
PROC: B548ZZA Ultrasonography of Superior Vena Cava, Guidance (ICD-10-PCS; 2019-05-22)
PROC: 30233N1 Transfusion of Nonautologous Red Blood Cells into Peripheral Vein, Percutaneous Approach (ICD-10-PCS; 2019-06-08)
PROC: 02PYX3Z Removal of Infusion Device from Great Vessel, External Approach (ICD-10-PCS; 2019-06-14)
PROC: 02HV33Z Insertion of Infusion Device into Superior Vena Cava, Percutaneous Approach (ICD-10-PCS; 2019-06-23)
PROC: B518ZZA Fluoroscopy of Superior Vena Cava, Guidance (ICD-10-PCS; 2019-06-23)
PROC: B548ZZA Ultrasonography of Superior Vena Cava, Guidance (ICD-10-PCS; 2019-06-23)
PROC: B24BZZ4 Ultrasonography of Heart with Aorta, Transesophageal (ICD-10-PCS; principal; 2019-07-09 08:00)
DX: I33.0 Acute and subacute infective endocarditis (principal); E87.1 Hypo-osmolality and hyponatremia; N30.00 Acute cystitis without hematuria; R78.81 Bacteremia; R47.01 Aphasia; F11.20 Opioid dependence, uncomplicated; E86.0 Dehydration; E83.42 Hypomagnesemia; E87.6 Hypokalemia; D69.6 Thrombocytopenia, unspecified; I11.0 Hypertensive heart disease with heart failure; I50.9 Heart failure, unspecified; K21.9 Gastro-esophageal reflux disease without esophagitis; Z95.2 Presence of prosthetic heart valve; B96.20 Unspecified Escherichia coli [E. coli] as the cause of diseases classified elsewhere; B96.5 Pseudomonas (aeruginosa) (mallei) (pseudomallei) as the cause of diseases classified elsewhere; I08.3 Combined rheumatic disorders of mitral, aortic and tricuspid valves; I27.20 Pulmonary hypertension, unspecified; B18.2 Chronic viral hepatitis C; B96.89 Other specified bacterial agents as the cause of diseases classified elsewhere; K75.81 Nonalcoholic steatohepatitis (NASH); D50.9 Iron deficiency anemia, unspecified; F43.21 Adjustment disorder with depressed mood; B37.3 Candidiasis of vulva and vagina; R00.0 Tachycardia, unspecified; R09.02 Hypoxemia; M72.2 Plantar fascial fibromatosis; G62.9 Polyneuropathy, unspecified; E87.5 Hyperkalemia; F17.210 Nicotine dependence, cigarettes, uncomplicated; Z59.7 Insufficient social insurance and welfare support
CPT/HCPCS: 36415; 36430; 36569; 71045; 74176; 76700; 76937; 77001; 80048; 80053; 80061; 80202; 80307; 80361; 81001; 82272; 82550; 82553; 82607; 82728; 82746; 82803; 82962; 83540; 83550; 83605; 83690; 83735; 83880; 84132; 84484; 84550; 84703; 85025; 85027; 85045; 85610; 85652; 86850; 86900; 86901; 86920; 87040; 87070; 87077; 87086; 87088; 87186; 87521; 93005; 93010; 93306; 93312; 93325; 93976; 94640; 94799; 96361; 96365; 96367; 96375; 99285; C1769; J0571; J0610; J0692; J1200; J1642; J1644; J1815; J1885; J1940; J1956; J2250; J2310; J2405; J2543; J2550; J3010; J3370; J3475; J3480; J3490; J7030; J7060; J7620; P9016

== ENCOUNTER 2019-10-27 01:19 | Emergency (ER) | payer OTHER ==
--- NOTE | 2019-10-27 02:20 | ER Document Report ---
Entered by DAVIE DANGELO SCRIBE 10/27/19 0139 Acting as scribe for:DARRELL COOPER IV, MD ED General - General Stated Complaint: CHEST PAINS Time Seen by Provider: 10/27/19 01:35 Mode of Arrival: Medic Information source: Patient Notes: This 44 year old female patient with a history of IV drug abuse and endocarditis brought in by EMS presents to the ED today with complaints of severe sudden onset sternal chest pain that started around 0020 tonight. Patient states that the pain woke her up and that she took 324 mg aspirin. Patient notes that it feels like her muscles are really tight and that she couldn't breathe. Patient was administered 2 doses of NTG SL. Patient reports some nausea, but denies history of asthma, fever, chills, or cough. TRAVEL OUTSIDE OF THE [place] IN LAST 30 DAYS: No - Related Data Allergies/Adverse Reactions: No Known Allergies Allergy (Verified 03/27/19 15:22) Past Medical History - General Information source: Patient, [facility] Records - Social History Smoking Status: Never Smoker Cigarette use (# per day): No Chew tobacco use (# tins/day): No Smoking Education Provided: No Family History: Reviewed & Not Pertinent, COPD - Past Medical History Cardiac Medical History: Reports: Hx Congestive Heart Failure, Hx Hypertension, Other - Endocarditis Neurological Medical History: Reports: Hx Migraine GI Medical History: Reports: Hx Gastroesophageal Reflux Disease Musculoskeletal Medical History: Reports Hx Musculoskeletal Deformity, Reports Hx Musculoskeletal Trauma Past Surgical History: Reports: Hx Cardiac Surgery, Hx Section, Hx Orthopedic Surgery - L1-S5 fusion - Immunizations Immunizations up to date: Yes Hx Diphtheria, Pertussis, Tetanus Vaccination: Yes Review of Systems - Review of Systems Constitutional: denies: Chills, Fever EENT: No symptoms reported Cardiovascular: See HPI, Chest pain Respiratory: See HPI. denies: Cough Gastrointestinal: See HPI, Nausea Genitourinary: No symptoms reported Female Genitourinary: No symptoms reported Musculoskeletal: No symptoms reported Skin: No symptoms reported Hematologic/Lymphatic: No symptoms reported Neurological/Psychological: No symptoms reported -: Yes All other systems reviewed and negative Physical Exam - Vital signs Vitals: Pulse Ox 96 10/27/19 01:23 - General General appearance: Alert - HEENT Head: Normocephalic, Atraumatic Eyes: Normal Pupils: PERRL - Respiratory Respiratory status: No respiratory distress Chest status: Nontender Breath sounds: Normal Chest palpation: Normal - Cardiovascular Rhythm: Regular Heart sounds: Normal auscultation Murmur: No - Abdominal Inspection: Normal Distension: No distension Bowel sounds: Normal Tenderness: Nontender Organomegaly: No organomegaly - Back Back: Normal, Nontender - Extremities General upper extremity: Normal inspection General lower extremity: Normal inspection - Neurological Neuro grossly intact: Yes - Psychological Associated symptoms: Normal affect, Normal mood - Skin Skin Temperature: Warm Skin Moisture: Dry Skin Color: Normal Course - Re-evaluation Re-evalutation: 10/27/19 04:26 Results of ED MSE discussed with patient. Patient states "I feel fine now." Emergency signs and symptoms, reasons to return to the emergency department discussed with patient. Medical decision making: While the etiology of the patient's chest pain is uncertain, findings do not seem consistent with endocarditis. Patient does not have a fever, does not have leukocytosis, symptoms have resolved on their own. - Vital Signs Vital signs: Temp Pulse Resp BP Pulse Ox 98.3 F 12 140/94 H 99 10/27/19 01:40 10/27/19 04:00 10/27/19 02:01 10/27/19 04:00 - Laboratory Result Diagrams: 10/27/19 02:20 10/27/19 02:20 Laboratory results interpreted by me: 10/27/19 10/27/19 02:20 02:20 RDW 15.3 H Direct Bilirubin 0.5 H AST 71 H - Diagnostic Test Radiology reviewed: Reports reviewed - EKG Interpretation by Me Additional EKG results interpreted by me: 10/27/19 04:24 EKG obtained on 10/27/2019 at 0129 hrs. was interpreted by this MD. Findings: Sinus tachycardia, rate 102, normal axis, P waves preceding QRS complexes, QRS complexes appear narrow, there are no obvious ST segment patterns of elevation or depression to suggest acute myocardial ischemia or infarction. Impression: Sinus tachycardia with nonspecific ST segments Discharge - Discharge Clinical Impression: Chest pain Qualifiers: Chest pain type: unspecified Qualified Code(s): R07.9 - Chest pain, unspecified Condition: Good Disposition: HOME, SELF-CARE Instructions: Chest Pain of Unclear Cause ([facility]) Additional Instructions: Return to the Emergency Department without delay if any worse. HOME CARE INSTRUCTIONS & INFORMATION: Thank you for choosing us for your medical needs. We hope you're satisfied with the care you received. After you leave, you must properly care for your problem and, at the same time, observe its progress. Any condition can change. Some illnesses can change rapidly over hours or days. If your condition worsens, return to the Emergency Department or see your physician promptly. ABOUT YOUR X-RAYS AND EKG'S: If you had an EKG or X-rays taken, they have been read by the Emergency Physician. The X-rays and EKG's will also be read by a Radiologist or [facility] Radar Operator/Navigator within 24 hours. If discrepancies are noted, you will be notified by telephone. Please be certain the ED has a correct telephone number & address where you can be reached. Also, realize that some fractures or abnormalities do not show up on initial X-rays. If your symptoms continue, see your physician. ABOUT YOUR LABORATORY TEST: If you had laboratory tests, the results have been reviewed by the Emergency Physician. Some test results (for example cultures) may not be available for several days. You will be contacted if any test result shows you need additional treatment. Please be certain the ED has a correct telephone number and address where you can be reached. ABOUT YOUR MEDICATIONS: You will receive instructions on how to take your medicine on the prescription label you receive. Additional information may be provided by the Pharmacy. If you have questions afterwards, call the ED for clarification or further instructions. Some prescribed medications may cause drowsiness. Do not perform tasks such as driving a car or operating machinery without consulting your Pharmacist. If you feel you need a refill of pain medication, your condition will need re-evaluation. Please do not call for a refill of any medication. ABOUT YOUR SIGNATURE: Signature of this document acknowledges to followin. Understanding that you received emergency treatment and that you may be released before al medical problems are known or treated. Please be certain the ED has a correct phone number & address where you can be reached. 2. Acknowledgement that you will arrange for follow-up care as recommended. 3. Authorization for the Emergency Physician to provide information to your follow-up Physician in order to maximize your care. AT ANY TIME, IF YOUR SYMPTOMS CHANGE SIGNIFICANTLY OR WORSEN OR YOU DEVELOP NEW SYMPTOMS, RETURN TO THE EMERGENCY DEPARTMENT IMMEDIATELY FOR RE-EVALUATION. OUR GOAL IS TO PROVIDE EXCELLENT MEDICAL CARE! WE HOPE THAT WE HAVE MET YOUR EXPECTATIONS DURING YOUR EMERGENCY DEPARTMENT VISIT AND THAT YOU FEEL YOU HAVE RECEIVED EXCELLENT CARE! Chest Pain of Unclear Cause The exact cause of your chest pain isn't clear. Fortunately, there is no evidence of a dangerous medical condition. Further testing may be required to find the source of the pain. Most often, we find that this pain is coming from the chest wall -- the muscles or rib joints in the chest. But chest pain can come from the lung and lung lining, the esophagus, the heart valves or heart lining, and even the stomach or gallbladder. Rest. Eat lightly until the pain is gone. We may prescribe medicine for pain and inflammation. You should call the physician immediately if the pain radiates to the shoulder, jaw or arms; if you start to run a fever or develop a cough; or if you develop shortness of breath, or other new or alarming symptoms. I personally performed the services described in the documentation, reviewed and edited the documentation which was dictated to the scribe in my presence, and it accurately records my words and actions.
[2019-10-27 02:33] LABS: ABSOLUTE EOSINOPHILS # (AUTO) 0.1 10^3/uL (0.0-0.6); ABSOLUTE LYMPHOCYTES (AUTO) 1.8 10^3/uL (0.5-4.7); ABSOLUTE MONOCYTES (AUTO) 0.8 10^3/uL (0.1-1.4); ABSOLUTE NEUT (AUTO) 5.7 10^3/uL (1.7-8.2); BASOPHILS % (AUTO) 0.4 % (0-2); EOSINOPHILS % (AUTO) 0.9 % (0-6); HEMATOCRIT 38.2 % (36.0-47.0); HEMOGLOBIN 13.3 g/dL (12.0-15.5); LYMPHOCYTES % (AUTO) 21.4 % (13-45); MEAN CORPUSCULAR HEMOGLOBIN 28.7 pg (27.0-33.4); MEAN CORPUSCULAR HGB CONC 34.9 g/dL (32.0-36.0); MEAN CORPUSCULAR VOLUME 82 fl (80-97); MONOCYTES % (AUTO) 9.3 % (3-13); PLATELET COUNT 273 10^3/uL (150-450); RED BLOOD COUNT 4.65 10^6/uL (3.72-5.28); RED CELL DISTRIBUTION WIDTH 15.3 % (11.5-14.0); TOTAL CELLS COUNTED % (AUTO) 100 %; WHITE BLOOD COUNT 8.4 10^3/uL (4.0-10.5)
[2019-10-27 02:57] VITALS: BP 140/94
[2019-10-27 03:01] LABS: ALKALINE PHOSPHATASE 124 U/L (38-126); ANION GAP 9 (5-19); ASPARTATE AMINO TRANSFERASE 71 U/L (14-36); BILIRUBIN,DIRECT 0.5 mg/dL (0.0-0.4); BILIRUBIN,TOTAL 0.7 mg/dL (0.2-1.3); BLOOD UREA NITROGEN 14 mg/dL (7-20); CALCIUM 9.1 mg/dL (8.4-10.2); CARBON DIOXIDE 26 mmol/L (22-30); CHLORIDE 106 mmol/L (98-107); CREATINE KINASE 38 U/L (30-135); GLUCOSE 97 mg/dL (75-110); POTASSIUM 4.1 mmol/L (3.6-5.0); TOTAL PROTEIN 7.9 g/dL (6.3-8.2)
--- NOTE | 2019-10-27 03:03 | RADIOLOGY REPORT (SQ) ---
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 COMPARISON: 05/21/2019 FINDINGS: Mild cardiomegaly with prior median sternotomy noted. No pulmonary edema. No focal consolidation is identified. No pleural effusions or pneumothorax. No acute bony findings are seen. IMPRESSION: No evidence of acute cardiopulmonary disease.
[2019-10-27 03:08] LABS: URINE AMPHETAMINES SCREEN NEGATIVE; URINE BARBITURATES SCREEN NEGATIVE; URINE BENZODIAZEPINES SCREEN NEGATIVE; URINE COCAINE SCREEN NEGATIVE; URINE METHADONE SCREEN NEGATIVE; URINE PHENCYCLIDINE SCREEN NEGATIVE
[2019-10-27 03:09] LABS: URINE MARIJUANA (THC) SCREEN UNCONFIRMED POSITIVE
[2019-10-27 03:17] LABS: CREATINE KINASE MB 0.58 ng/mL (<4.55)
[2019-10-27 03:18] LABS: TROPONIN I < 0.012 ng/mL
--- NOTE | 2019-10-27 08:38 | EKG REPORT ---
SEVERITY:- BORDERLINE ECG - SINUS TACHYCARDIA BORDERLINE INFERIOR Q WAVES : Confirmed by: Vonda Frank 27-Oct-2019 08:37:46
== END 2019-10-27 05:09 | disposition home or self-care (01) ==
LOC: EEVIPCON 01:19 → ER 01:19
DX: R07.9 Chest pain, unspecified (principal); R00.0 Tachycardia, unspecified; R06.00 Dyspnea, unspecified; R11.0 Nausea; I10 Essential (primary) hypertension
CPT/HCPCS: 36415; 71046; 80053; 80307; 82550; 82553; 84484; 85025; 87040; 93005; 93010; 99285

== ENCOUNTER 2019-12-16 18:54 | Emergency (ER) | payer OTHER ==
--- NOTE | 2019-12-16 19:19 | ER Document Report ---
ED Medical Screen (RME) - General Chief Complaint: Chest Pain Stated Complaint: CHEST PAIN Time Seen by Provider: 12/16/19 19:11 Notes: Patient is a 44-year-old female who presents emergency department with a chief complaint of chest pain. Patient states that her chest pain started about 3 days ago. States that she has history of an Aortic Valve replacement at [facility]. She was supposed to have an echocardiogram done in [place] yesterday, but cannot find a ride. Patient has a history of IV drug abuse and endocarditis. Exam: Sinus tachycardia. I have greeted and performed a rapid initial assessment of this patient. A comprehensive ED assessment and evaluation of the patient, analysis of test results and completion of medical decision making process will be conducted by an additional ED providers. TRAVEL OUTSIDE OF THE [place] IN LAST 30 DAYS: No - Related Data Allergies/Adverse Reactions: No Known Allergies Allergy (Verified 12/16/19 19:08) Past Medical History - Social History Frequency of alcohol use: None Drug Abuse: Marijuana - Past Medical History Cardiac Medical History: Reports: Hx Congestive Heart Failure, Hx Hypertension Neurological Medical History: Reports: Hx Migraine. Denies: Hx Seizures Renal/ Medical History: Denies: Hx Peritoneal Dialysis GI Medical History: Reports: Hx Gastroesophageal Reflux Disease Musculoskeltal Medical History: Reports Hx Musculoskeletal Deformity, Reports Hx Musculoskeletal Trauma Psychiatric Medical History: Denies: Hx Depression Past Surgical History: Reports: Hx Cardiac Surgery, Hx Section, Hx Orthopedic Surgery - L1-S5 fusion - Immunizations Immunizations up to date: Yes Hx Diphtheria, Pertussis, Tetanus Vaccination: Yes Physical Exam - Vital signs Vitals: Temp Pulse Resp BP Pulse Ox 98.1 F 100 16 126/73 H 97 12/16/19 19:05 12/16/19 19:05 12/16/19 19:05 12/16/19 19:05 12/16/19 19:05 Course - Vital Signs Vital signs: Temp Pulse Resp BP Pulse Ox 98.1 F 100 16 126/73 H 97 12/16/19 19:05 12/16/19 19:05 12/16/19 19:05 12/16/19 19:05 12/16/19 19:05
--- NOTE | 2019-12-16 19:55 | RADIOLOGY REPORT (SQ) ---
EXAM DESCRIPTION: CHEST SINGLE VIEW COMPLETED DATE/TIME: 12/16/2019 7:34 pm REASON FOR STUDY: chest pain COMPARISON: 10/27/2019 EXAM PARAMETERS: NUMBER OF VIEWS: One view. TECHNIQUE: Single frontal radiographic view of the chest acquired. RADIATION DOSE: NA LIMITATIONS: None. FINDINGS: LUNGS AND PLEURA: No opacities, masses or pneumothorax. No pleural effusion. MEDIASTINUM AND HILAR STRUCTURES: No masses. Contour normal. HEART AND VASCULAR STRUCTURES: Heart normal in size. Normal vasculature. BONES: No acute findings. HARDWARE: None in the chest. OTHER: No other significant finding. IMPRESSION: NO ACUTE RADIOGRAPHIC FINDING IN THE CHEST. TECHNICAL DOCUMENTATION: JOB ID: [id number] 2010 [employer]- All Rights Reserved Reading location - IP/workstation name: [email or web address]
[2019-12-16 20:13] LABS: ABSOLUTE BASOPHILS # (AUTO) 0.1 10^3/uL (0.0-0.2); ABSOLUTE EOSINOPHILS # (AUTO) 0.1 10^3/uL (0.0-0.6); ABSOLUTE LYMPHOCYTES (AUTO) 1.5 10^3/uL (0.5-4.7); ABSOLUTE MONOCYTES (AUTO) 0.5 10^3/uL (0.1-1.4); ABSOLUTE NEUT (AUTO) 5.2 10^3/uL (1.7-8.2); BASOPHILS % (AUTO) 0.7 % (0-2); EOSINOPHILS % (AUTO) 1.4 % (0-6); HEMATOCRIT 39.5 % (36.0-47.0); HEMOGLOBIN 14.3 g/dL (12.0-15.5); LYMPHOCYTES % (AUTO) 20.6 % (13-45); MEAN CORPUSCULAR HEMOGLOBIN 29.5 pg (27.0-33.4); MEAN CORPUSCULAR HGB CONC 36.1 g/dL (32.0-36.0); MEAN CORPUSCULAR VOLUME 82 fl (80-97); MONOCYTES % (AUTO) 7.1 % (3-13); PLATELET COUNT 280 10^3/uL (150-450); RED BLOOD COUNT 4.83 10^6/uL (3.72-5.28); RED CELL DISTRIBUTION WIDTH 14.1 % (11.5-14.0); SEGMENTED NEUTROPHILS % (AUTO) 70.2 % (42-78); TOTAL CELLS COUNTED % (AUTO) 100 %; WHITE BLOOD COUNT 7.4 10^3/uL (4.0-10.5)
[2019-12-16 20:38] LABS: ALKALINE PHOSPHATASE 78 U/L (38-126); ANION GAP 8 (5-19); ASPARTATE AMINO TRANSFERASE 29 U/L (14-36); BILIRUBIN,DIRECT 0.3 mg/dL (0.0-0.4); BILIRUBIN,TOTAL 0.7 mg/dL (0.2-1.3); BLOOD UREA NITROGEN 13 mg/dL (7-20); CALCIUM 9.3 mg/dL (8.4-10.2); CARBON DIOXIDE 28 mmol/L (22-30); CHLORIDE 103 mmol/L (98-107); GLUCOSE 125 mg/dL (75-110); POTASSIUM 3.9 mmol/L (3.6-5.0); TOTAL PROTEIN 7.6 g/dL (6.3-8.2)
[2019-12-16 20:46] LABS: APPEARANCE,URINE SLIGHTLY-CLOUDY; BILIRUBIN,URINE NEGATIVE (NEGATIVE); COLOR,URINE YELLOW; GLUCOSE, URINE NEGATIVE (NEGATIVE); KETONES,URINE NEGATIVE (NEGATIVE); LEUKOCYTE ESTERASE,URINE NEGATIVE (NEGATIVE); NITRITE,URINE NEGATIVE (NEGATIVE); PROTEIN,URINE NEGATIVE (NEGATIVE); URINE SPECIFIC GRAVITY 1.017; UROBILINOGEN,URINE NEGATIVE mg/dL (<2.0)
[2019-12-16 20:50] LABS: NT PRO BNP 372 pg/mL (<125)
[2019-12-16 20:59] LABS: TROPONIN I < 0.012 ng/mL
[2019-12-16 21:00] LABS: URINE AMPHETAMINES SCREEN NEGATIVE; URINE BARBITURATES SCREEN NEGATIVE; URINE COCAINE SCREEN NEGATIVE; URINE METHADONE SCREEN NEGATIVE; URINE PHENCYCLIDINE SCREEN NEGATIVE
[2019-12-16 21:20] LABS: URINE MARIJUANA (THC) SCREEN UNCONFIRMED POSITIVE
--- NOTE | 2019-12-16 22:41 | ER Document Report ---
ED General - General Chief Complaint: Chest Pain Stated Complaint: CHEST PAIN Time Seen by Provider: 12/16/19 19:11 Mode of Arrival: Ambulatory Information source: Patient TRAVEL OUTSIDE OF THE [place] IN LAST 30 DAYS: No - HPI Onset: Other - over the last 3 days Quality of pain: Pressure Severity: Moderate Pain Level: 3 Associated symptoms: Chills, Nausea, Other - pain with taking deep breaths Exacerbated by: Deep breathing Relieved by: Denies Similar symptoms previously: Yes Recently seen / treated by doctor: No Notes: 44 year old female with a history of Polysubstance Abuse, Endocarditis s/p Aortic Valve Replacement, Hep C, CHF, HTN, GERD, Migraines, Depression here in the ER for 3 days of chest pain with nausea and chills. The patient says she was supposed to have an Echo at [facility] this week but she was unable to get a ride there. The patient tells me she has an ID Doctor, Senior Windows Engineer, and Surgeon at [facility] and that she may need a repeat surgery once she clears her Hep C infection (she is being treated with Harvoni and today is apparently her last day of treatment). The patient was seen in this ER for chest pain in early Oct for the same. The patient denies recent fevers, sweats, vomiting, trouble breathing, cough, sore throat. The patient says she has not been using drugs recently and that she has been clean for a year. The patient says she is on prophylactic Ciprofloxacin and that she doesn't always take the medication as prescribed. - Related Data Allergies/Adverse Reactions: No Known Allergies Allergy (Verified 12/16/19 19:08) Past Medical History - General Information source: Patient - Social History Smoking Status: Former Smoker Frequency of alcohol use: None Drug Abuse: Marijuana, Other - patient says prior opate abuse Family History: Reviewed & Not Pertinent, COPD Patient has suicidal ideation: No Patient has homicidal ideation: No - Past Medical History Cardiac Medical History: Reports: Hx Congestive Heart Failure, Hx Hypertension Neurological Medical History: Reports: Hx Migraine. Denies: Hx Seizures Renal/ Medical History: Denies: Hx Peritoneal Dialysis GI Medical History: Reports: Hx Gastroesophageal Reflux Disease Musculoskeletal Medical History: Reports Hx Musculoskeletal Deformity, Reports Hx Musculoskeletal Trauma Psychiatric Medical History: Denies: Hx Depression Infectious Medical History: Reports: Hx Hepatitis - Hep C Past Surgical History: Reports: Hx Cardiac Surgery - Aortic Valve Surgery, Hx Section, Hx Orthopedic Surgery - L1-S5 fusion - Immunizations Immunizations up to date: Yes Hx Diphtheria, Pertussis, Tetanus Vaccination: Yes Review of Systems - Review of Systems Constitutional: Chills. denies: Fever EENT: No symptoms reported Cardiovascular: Chest pain Respiratory: No symptoms reported Gastrointestinal: Nausea Genitourinary: No symptoms reported Female Genitourinary: No symptoms reported Musculoskeletal: No symptoms reported Skin: No symptoms reported Hematologic/Lymphatic: No symptoms reported Neurological/Psychological: No symptoms reported -: Yes All other systems reviewed and negative Physical Exam - Vital signs Vitals: Temp Pulse Resp BP Pulse Ox 98.1 F 100 16 126/73 H 97 12/16/19 19:05 12/16/19 19:05 12/16/19 19:05 12/16/19 19:05 12/16/19 19:05 Course - Re-evaluation Re-evalutation: 12/16/19 23:14 The patient has a history of drug abuse, endocarditis, Aortic Valve Replacement, and Hep C and she is here in the ER for chest pain. Patient's EKG, Chest Xray, and labs are unremarkable. Patient tested positive for opiates, THC, and benzos despite telling me she has been clean for a year. Patient says she take Suboxone. Patient looks clinically well in the ER today. Patient is afebrile and has a normal WBC count. Patient is low risk for ACS but her EKG and Trop are unremarkable. Patient told to follow up with her PCP, Senior Windows Engineer, ID Doctor, and Surgeon at [facility]. - Vital Signs Vital signs: Temp Pulse Resp BP Pulse Ox 98.1 F 100 16 145/83 H 99 12/16/19 22:54 12/16/19 19:05 12/16/19 22:50 12/16/19 22:50 12/16/19 22:50 - Laboratory Result Diagrams: 12/16/19 18:59 12/16/19 18:59 Laboratory results interpreted by me: 12/16/19 12/16/19 12/16/19 18:59 18:59 18:59 MCHC 36.1 H RDW 14.1 H Glucose 125 H NT-Pro-B Natriuret Pep 372 H - Diagnostic Test Radiology reviewed: Image reviewed, Reports reviewed - EKG Interpretation by Me EKG shows normal: Sinus rhythm, Holt, Intervals, QRS Complexes, ST-T Waves Rate: Normal Rhythm: NSR Discharge - Discharge Clinical Impression: Shortness of breath Chest pain Qualifiers: Chest pain type: unspecified Qualified Code(s): R07.9 - Chest pain, unspecified Condition: Stable Disposition: HOME, SELF-CARE Instructions: Chest Pain of Unclear Cause ([facility]), Dyspnea, Nonspecific ([facility]) Additional Instructions: Follow up with your primary care doctor, your infectious disease doctor, and y our insurance claims adjuster. You were seen in the ER today for chest pain. You had an EKG, blood work, chest xray. Use Tylenol and Motrin for pain. Seek medical attention for fevers, chills, sweats, trouble breathing or if worse.
[2019-12-16 22:55] VITALS: BP 145/83
--- NOTE | 2019-12-17 11:17 | EKG REPORT ---
SEVERITY:- OTHERWISE NORMAL ECG - SINUS TACHYCARDIA : Confirmed by: Tyler Delacruz MD 17-Dec-2019 11:16:53
== END 2019-12-16 23:03 | disposition home or self-care (01) ==
LOC: ER 18:54
DX: R07.9 Chest pain, unspecified (principal); R06.02 Shortness of breath; R11.0 Nausea; R07.1 Chest pain on breathing; I50.9 Heart failure, unspecified; I11.0 Hypertensive heart disease with heart failure; F19.10 Other psychoactive substance abuse, uncomplicated; Z87.891 Personal history of nicotine dependence
CPT/HCPCS: 36415; 71045; 80053; 80307; 81001; 83880; 84484; 85025; 93005; 93010; 99285